=== PATIENT | male | born 1945 | race Caucasian/White ===

== ENCOUNTER 2016-03-18 17:42 | Inpatient (IN) ==
[2016-03-18] MEDS ORDERED: Naloxone 0.4 MG/ML INJ IVP PRN (18:38)
[2016-03-18] MEDS ORDERED: 0.9 % Sodium Chloride 250 ML IV PRN (18:52)
--- NOTE | 2016-03-18 18:57 | Nephrology Consult Note ---
Date of Encounter: 03/18/16 Time of Encounter: 18:54 Assessment and Plan (1) ESRD (end stage renal disease) on dialysis Current Visit: Yes Status: Acute I returned to the hospital on Saturday night after being paged about this very sick patient He missed dialysis and has had difficulty with his dialysis access. S/p fistulagram on Saturday, but his last HD was on Saturday. The LUE AVG has no thrill and is not going to work, so he will need a temporary HD catheter placed and urgent HD for clearance and fluid removal (re: hyperkalemia and pulmonary edema), both of which are urgent indications for dialysis. I called the senior mechanical project engineer for urgent HD. I chose the left femoral vein as it had the most clear window with the lowest immediate risk tonight in placing the triple lumen CVC. With fluid removal, this should help his acute respiratory failure His LUE AVG has no thrill. The Fistulogram report documented a viable thrill, so he likely has developed a thrombus. Perhaps at the time of his cardiac arrest , however, I cannot rule out perhaps earlier and perhaps he may have developed a P.E., which was discussed with the hospitalist. His platelets and Hgb were WNL and 11.9 on the outside records, respectively, so it should be fine from a renal perspective for a heparin gtt if needed. The LUE AVG may need a thrombectomy first and after this then a fistulagram. I spent about 65 min involved in critical care time, including documentation review, family meeting, exam, and documentation (not including procedure time). Thank you for consulting the [facility] group. Will follow with you. (2) Hyperkalemia Current Visit: Yes Status: Acute Urgent HD needed. (3) Clotted dialysis access Current Visit: Yes Status: Acute See above Qualifiers: Encounter type: initial encounter Qualified Code(s): T82.49XA - Other complication of vascular dialysis catheter, initial encounter (4) Pulmonary edema Current Visit: Yes Status: Acute Urgent HD needed Qualifiers: Chronicity: acute Qualified Code(s): J81.0 - Acute pulmonary edema (5) Acute respiratory failure Current Visit: Yes Status: Acute From pulm edema, from his missed dialysis/ESRD status. Will need urgent HD. Vent as per primary Qualifiers: Respiratory failure complication: hypoxia Qualified Code(s): J96.01 - Acute respiratory failure with hypoxia History of Present Illness - Reason for Consult Consult date: 03/18/16 end stage renal disease, hyperkalemia Requesting physician: Betsy Bustos - Chief Complaint Missed HD, Severe hyperkalemia, s/p PE arrest, Fluid overload - History of Present Illness Donovan Bourne is a 70 y/o WM with a pmh of HTN, urostomy, ESRD on HD M/W/F and et al who presented as a transfer from [facility] ER. He missed HD on Saturday, his relatives said. Had Fistulagram on 03/16/16 but was told to rest the arm another day before dialysis, and his HD unit is not open on Saturdays. He was feeling poorly on Saturday and awoke late on Saturday with generalized muscle weakness, his family said. He tried to eat but could not finish after two bites; but then started to shake vigorously and was taken to a local fire department, who then quickly took him to the ER. He presented at an outside ER, [place] and developed PEA arrest, requiring ACLS, bicarb, intubation. BPs were hemodynamically stabilized and he was transferred here for urgent HD. I reviewed the copies of his outside medical records: serum K was 7.5 with peaked T-waves diffusely on the EKG. His primary insurance producer is Dr. Tan, my colleague. Pt is intubated so all info is from records and per report from the hospitalist and the pt's family. Past Med Surg Social Fam HX - Past Medical History Medical history: diabetes, myocardial infarction, renal disease Psychiatric history: no psych history - Past Surgical History Surgical History: cholecystectomy, vascular surgery - Social History Smoking Status: Never smoker Smokeless Tobacco Status: No Alcohol use: none Drug use: none Medications and Allergies Aspirin [Lo-Dose Aspirin EC] 81 mg PO DAILY 03/18/16 [History] Calcium Acetate [Phos-LO] 667 mg PO TIDAC 03/18/16 [History] Ergocalciferol (VITAMIN D2) [Vitamin D2] 50,000 unit PO QWEEK 03/18/16 [History] Insulin ASPART [Novolog Flexpen] 0 unit SQ TID 03/18/16 [History] Insulin DETEMIR [Levemir] TID 03/18/16 [History] Levothyroxine [Synthroid] 25 mcg PO 0630 03/18/16 [History] Omeprazole [PriLOSEC] 20 mg PO BIDAC 03/18/16 [History] Simvastatin [Zocor] 40 mg PO HS 03/18/16 [History] Allergies No Known Allergies Allergy (Verified 11/19/14 11:45) Review of Systems ROS unobtainable: due to endotracheal tube Exam - Vital Signs Vital signs: Initial Vital Signs Resp BP Pulse Ox 12 162/86 95 03/18/16 18:28 03/18/16 18:28 03/18/16 18:28 Vital Signs - Last 8 Hours Resp BP Pulse Ox 03/18/16 18:28 12 162/86 95 Intake and Output 03/18/16 03/18/16 03/18/16 07:59 15:59 23:59 Other: Weight 95.5 kg Patient Weight 03/18/16 23:59 Weight 95.5 kg - General Appearance General appearance: obese, moderate distress, sedated on ventilator, intubated EENT: ATNC, mucous membranes moist Neck: supple Respiratory: clear Cardiology: edema (trace pedal edema b/l ), regular rate, regular rhythm, normal S1, normal S2 - Dialysis Access Dialysis Vascular Access: Arteriovenous Graft (LUE without thrill or bruit.) Gastrointestinal: normoactive bowel sounds, no guarding Additional Comments: Urostomy bag intact Integumentary: no rash, warm and dry Neurologic: no focal deficit, no asterixis, obtunded Musculoskeletal: no deformities, no erythema, no cyanosis Results - Lab Results 03/18/16 20:30 I reviewed the above auto-generated data, including labs, meds, vitals, outside ER medical records including EKG and CXR. Consult Discharge Plan - Plan Referrals: NO,PCP [Primary Care Provider] -
[2016-03-18] MEDS ORDERED: D5% in Water 1,000 ML IV PRN (19:18)
[2016-03-18] MEDS ORDERED: *HR* Dextrose 50 % in Water (Syg) 50 ML SYRINGE IVP PRN (19:18)
[2016-03-18] MEDS ORDERED: Dextrose Gel 15 GM PO PRN ×2 (19:18)
--- NOTE | 2016-03-18 19:29 | Internal Med History&Physical ---
Date of Encounter: 03/18/16 Time of Encounter: 18:45 Assessment and Plan (1) PEA (Pulseless electrical activity) Current visit: Yes Status: Acute s/p PEA with ROSC after one round of ACLS s/p intubation patient received 2amps bicarb prior to transfer from [facility] Critical time spent with the patient 30 minutes (2) Acute respiratory failure requiring reintubation Current visit: Yes Status: Acute Secondary to pulmonary edema s/p intubation will be receiving urgent Hemodialysis tonight continue vent support repeat ABG Midazolam/Fentanyl for sedation/pain (3) Hyperkalemia Current visit: Yes Status: Acute secondary to missed hemodialysis will be receiving urgent HD tonight will closely monitor (4) Pulmonary edema Current visit: Yes Status: Acute Volume overload secondary to missed hemodialysis session Will receive urgent hemodialysis tonight for fluid removal continue vent support patient noted to have minimal urine output at baseline, will hold off on diuretic therapy and continue with HD session as per nephrology Qualifiers: Chronicity: acute Qualified Code(s): J81.0 - Acute pulmonary edema (5) Clotted dialysis access Current visit: Yes Status: Acute patient s/p fistulagram and thrombectomy on 03/18/[address] an urgent HD access consult IR in am for Permacath Qualifiers: Encounter type: initial encounter Qualified Code(s): T82.49XA - Other complication of vascular dialysis catheter, initial encounter (6) ESRD (end stage renal disease) on dialysis Current visit: Yes Status: Acute Nephrology eval appreciated Patient to undergo urgent dialysis tonight urgent HD cath to be placed by seismograph chief Will continue HD sessions as per nephrology Patient received 2amps of bicarb prior to transfer from [facility] (7) Diabetes mellitus Current visit: Yes Status: Acute Patient on sliding scale insulin algorithm at home Will continue correctional Insulin SS Monitor fingerstick and blood glucose Qualifiers: Diabetes mellitus type: type 2 Diabetes mellitus complication status: with unspecified complications 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 insulin use: with residential use Qualified Code(s): E11.8 - Type 2 diabetes mellitus with unspecified complications; Z79.4 - terminal press operator (current) use of insulin (8) Hypertension Current visit: Yes Status: Acute BP within acceptable range continue home medications Qualifiers: Hypertension type: essential hypertension Qualified Code(s): I10 - Essential (primary) hypertension (9) DVT prophylaxis Current visit: Yes Status: Acute Heparin SQ Internal Medicine - H&P: HPI Chief complaint: transfer from [facility] s/p cardiac arrest, acute respiratory failure Admitted From: Home Plans for Post Hospital Care: Transfer Longterm Facility History of present illness: Mr. Bourne is a 70 year old male with past medical history of end-stage renal disease on hemodialysis, diabetes, hypertension, hyperlipidemia, CAD, GERD who is a transfer from [facility] for management of acute respiratory failure. Patient is s/p PEA with ROSC after one round of ACLS protocol. He was intubated for acute respiratory failure secondary to flash pulmonary edema. Patient has a history of malfunctioning AV fistula due to which he did not complete his full session of Saturday's Hemodialysis. He went to the [facility] for shortness of breath and was found to be severely hyperkalemia with K of 7.5. Patient has history of bladder cancer and has a urostomy. As per family he has minimal urine output. He received two doses of Lasix prior to his transfer. During my evaluation, patient is intubated and sedated. He has some urine in the urostomy bag. As per records, he underwent a fistulagram and thrombectomy of his LUE AV fistula on 03/18/16. Prior to transfer, patient was noted to have K of 6.4 and ABG : 7.041/85.6/23.2 STAT nephrology consultation was placed with Dr. Young ( robotics application engineer for the service, patient's primary seismograph chief is Dr. Tan) Past Med Surg Social Fam HX - Past Medical History Medical history: cancer (bladder ca s/p urostomy), coronary artery disease, diabetes, GERD, myocardial infarction, renal disease (on hemodialysis ) Psychiatric history: no psych history - Past Surgical History Surgical History: cholecystectomy, vascular surgery - Social History Smoking Status: Never smoker Smokeless Tobacco Status: No Alcohol use: none Drug use: none Internal Medicine - H&P: Meds Aspirin [Lo-Dose Aspirin EC] 81 mg PO DAILY 03/18/16 [History] Calcium Acetate [Phos-LO] 667 mg PO TIDAC 03/18/16 [History] Ergocalciferol (VITAMIN D2) [Vitamin D2] 50,000 unit PO QWEEK 03/18/16 [History] Insulin ASPART [Novolog Flexpen] 0 unit SQ TID 03/18/16 [History] Insulin DETEMIR [Levemir] TID 03/18/16 [History] Levothyroxine [Synthroid] 25 mcg PO 0630 03/18/16 [History] Omeprazole [PriLOSEC] 20 mg PO BIDAC 03/18/16 [History] Simvastatin [Zocor] 40 mg PO HS 03/18/16 [History] Allergies No Known Allergies Allergy (Verified 11/19/14 11:45) ROS unobtainable: due to endotracheal tube (sedated) All Systems PM: A 10-system review of systems was performed and is negative for pertinent findings except as documented above in the HPI. - Constitutional Vitals: Resp BP Pulse Ox 12 162/86 95 03/18/16 18:28 03/18/16 18:28 03/18/16 18:28 General appearance: Present: A&O X 0 (sedated and ventilated), obese - Head Head exam: Present: atraumatic, normocephalic - Eye Eye exam: Present: PERRL, conjuntiva pink, sclera anicteric (pinpoint pupil, ) - Respiratory Respiratory exam: Present: decreased breath sounds (decreased breath sounds bilaterally). Absent: wheezes - Cardiovascular Cardiovascular exam: Present: RRR, +S1, +S2 - GI/Abdominal GI/Abdominal exam: Present: normal bowel sounds, soft. Absent: tenderness (LLQ urostomy bag in place) - Extremities Exam Extremities exam: Present: pedal edema (bilateral lower extremity 1+pitting edema), warm (LUE av fistula), radial pulses palpable and symetrical. Absent: calf tenderness, tenderness Internal Med - H&P Results - Impressions ITS Impressions Chest X-Ray 03/18/16 18:44 IMPRESSION: 1. Endotracheal tube 4.8 cm above the cindy. 2. Diffuse bilateral pulmonary opacities. D/ / Kurt Ma MD / Kurt Ma MD Interpreting Provider: Kurt Ma MD
[2016-03-18] MEDS: FentaNYL (PF) 1,000 MCG in 0.9 % Sodium Chloride 80 ML IVC SCH (19:32)
--- NOTE | 2016-03-18 20:35 | Procedure Note ---
Date of procedure: 03/18/16 Pre-op diagnosis: Refractory hyperkalemia Post-op diagnosis: same Procedure: Temporary Right Femoral Hemodialysis Catheter Placement Date: 03/18/2016 Time: 19:30 Indication: Urgent hemodialysis Resident: Dr. Donovan Crane Attending: Dr. Nicho Aguilera A time-out was completed verifying correct patient, procedure, site, positioning , and special equipment if applicable. The patient was placed in a dependent position appropriate for central line placement based on the vein to be cannulated. The patients right groin was prepped and draped in sterile fashion. Patient was receiving versed and fentanyl drip for sendation for mechanical ventilation. A triple lumen temoprary hemodialysis catheter was introduced into the the right femoral vein using the Seldinger technique and under ultrasound guidance. The catheter was threaded smoothly over the guide wire and appropriate blood return was obtained. Each lumen of the catheter was evacuated of air and flushed with sterile saline. The catheter was then sutured in place to the skin and a sterile dressing applied. Perfusion to the extremity distal to the point of catheter insertion was checked and found to be adequate. Dr. Aguilera was present for the entire procedure. Estimated Blood Loss: 20 cc The patient tolerated the procedure well and there were no complications. Anesthesia: IV sedation Surgeon: Nicho Aguilera Sale Professional Digital Marketing: Donovan Crane Estimated blood loss (cc): 20 Pathology: none sent Condition: critical Disposition: no change
[2016-03-18 20:37] LABS: Basophils % 0.3 %; Eosinophils % 0.1 %; Hematocrit 35.7 % (37.5-50.1); Hemoglobin 11.6 g/dL (12.9-16.9); Immature Granulocytes % 0.6 % (0-4); Immature Platelets 3.8 % (1.1-6.1); Lymphocytes # 0.4 K/mcL (0.6-4.6); Lymphocytes % 2.6 %; Mean Corpuscular HGB Conc 32.5 g/dL (31.6-35.5); Mean Corpuscular Hemoglobin 30.9 pg (28.0-33.3); Mean Corpuscular Volume 94.9 fL (83.0-100.0); Mean Platelet Volume 10.2 fL (9.4-12.4); Monocytes # 0.9 K/mcL (0.0-1.3); Monocytes % 6.4 %; Neutrophils # 12.3 K/mcL (1.6-8.9); Platelet Count 333 K/mcL (140-400); Red Blood Count 3.76 M/mcL (4.19-5.50)
[2016-03-18 20:41] LABS: Prothrombin Time 10.9 Seconds (9.4-12.1)
[2016-03-18 20:44] LABS: Activated Partial Thrombo Time 32.1 Seconds (26.0-36.0)
[2016-03-18 20:50] LABS: Albumin 2.8 g/dL (3.5-5.0); Albumin/Globulin Ratio 0.8 (1.1-2.2); Bilirubin,Total 0.7 mg/dL (0.2-1.2); Calcium 9.4 mg/dL (8.6-10.8); Globulin 3.7 g/dL (2.4-3.5); Magnesium 1.6 mg/dL (1.6-2.6); Phosphorous 9.5 mg/dL (2.3-4.7); Total Protein 6.5 g/dL (6.0-8.3)
[2016-03-18 20:56] LABS: Potassium 7.5 mEq/L (3.5-4.5)
[2016-03-18 21:04] LABS: ABG Base Excess -2.8 mEq/L (-2.0 to 3.0); ABG Oxygen Saturation 78 % (95-98); ABG PCO2 57 mmHg (35-45); ABG PH 7.25 pH Units (7.32-7.45); ABG TCO2 26.7 mEq/L (20-26)
[2016-03-18 21:05] LABS: Blood Gas FiO2 50 %
[2016-03-18 21:06] LABS: ABG PO2 50 mmHg (85-104)
--- NOTE | 2016-03-18 21:08 | Event Note ---
Date of Encounter: 03/18/16 Time of Encounter: 21:06 Dialysis Note: I ordered urgent HD and examined the pt while on dialysis. His vitals were adequate and Qb and Qd were acceptable. Discussed with the beam warper. The latest serum K+ returned at 7.5, but will continue with a 2K bath for patient safety. Will plan for HD tomorrow as well.
[2016-03-18 21:21] LABS: Hepatitis B Surface Antigen Nonreactive (Nonreactive)
[2016-03-18] MEDS ORDERED: Vancomycin 1,500 MG in D5% in Water 250 ML IVPB ONE (22:00)
[2016-03-18] MEDS ORDERED: Vancomycin 1,500 MG in D5% in Water 250 ML IVPB SCH (22:00)
[2016-03-18] MEDS ORDERED: Levofloxacin 750 MG/150 ML 750 MG/150 ML BAG IVPB SCH (22:00)
[2016-03-18] MEDS: Norepinephrine 4 MG in D5% in Water 250 ML IVC SCH (22:11)
[2016-03-18 23:18] LABS: ABG Base Excess -1.3 mEq/L (-2.0 to 3.0); ABG HCO3 23.7 mEQ/L (21-27); ABG Oxygen Saturation 100 % (95-98); ABG PCO2 40 mmHg (35-45); ABG PH 7.38 pH Units (7.32-7.45); ABG PO2 189 mmHg (85-104); ABG TCO2 24.9 mEq/L (20-26)
[2016-03-18 23:23] LABS: Blood Gas FiO2 100 %
[2016-03-18] MEDS ORDERED: Aspirin 81 MG TAB.CHEW PO SCH (23:45)
[2016-03-18 23:51] LABS: Potassium 6.2 mEq/L (3.5-4.5)
[2016-03-19] MEDS: Insulin LISPRO 300 UNITS/3 ML VIAL SQ SCH ×2 (00:56→06:16)
[2016-03-19 04:14] LABS: Basophils % 0.1 %; Hematocrit 32.7 % (37.5-50.1); Hemoglobin 10.8 g/dL (12.9-16.9); Immature Granulocytes % 0.7 % (0-4); Lymphocytes # 0.5 K/mcL (0.6-4.6); Lymphocytes % 2.6 %; Mean Corpuscular Hemoglobin 31.3 pg (28.0-33.3); Mean Corpuscular Volume 94.8 fL (83.0-100.0); Mean Platelet Volume 10.4 fL (9.4-12.4); Monocytes # 1.1 K/mcL (0.0-1.3); Monocytes % 5.9 %; Neutrophils # 16.1 K/mcL (1.6-8.9); Platelet Count 228 K/mcL (140-400); Red Blood Count 3.45 M/mcL (4.19-5.50); Red Cell Distribution Width 14.1 % (11.5-14.5); Segmented Neutrophils % 90.7 %
[2016-03-19 04:40] LABS: Calcium 8.7 mg/dL (8.6-10.8); Magnesium 1.5 mg/dL (1.6-2.6); Phosphorous 6.3 mg/dL (2.3-4.7)
[2016-03-19 04:42] LABS: Potassium 7.1 mEq/L (3.5-4.5)
[2016-03-19] MEDS ORDERED: Magnesium Sulfate 2 GM in D5% in Water 100 ML IVPB ONE ×2 (04:50→13:01)
[2016-03-19] MEDS ORDERED: Insulin LISPRO 300 UNITS/3 ML VIAL SQ ONE (04:50)
[2016-03-19] MEDS ORDERED: Calcium Gluconate 2,000 MG in D5% in Water 100 ML IVPB ONE (04:50)
[2016-03-19] MEDS ORDERED: *HR* Dextrose 50 % in Water (Syg) 50 ML SYRINGE IVP ONE (04:50)
[2016-03-19] MEDS ORDERED: Calcium Gluconate 2,000 MG in D5% in Water 100 ML IVPB PRN (05:22)
[2016-03-19] MEDS ORDERED: Calcium Gluconate 1,000 MG in D5% in Water 100 ML IVPB PRN (05:22)
[2016-03-19] MEDS ORDERED: 0.9 % Sodium Chloride 250 ML ONE (05:25)
[2016-03-19] MEDS ORDERED: 0.9 % Sodium Chloride 1,000 ML ONE (05:25)
[2016-03-19 05:51] LABS: INR 1.1; Prothrombin Time 12.2 Seconds (9.4-12.1)
[2016-03-19] MEDS: 0.9 % Sodium Chloride 1,000 ML PRIME SCH (05:56)
[2016-03-19] MEDS: PrismaSATE BGK 2/0 5,000 ML CRRT SCH ×4 (05:58→10:33)
[2016-03-19] MEDS ORDERED: Piperacillin/Tazobactam 3.375 GM in D5% in Water (Mini-Bag+) 100 ML IVPB SCH (06:00)
[2016-03-19] MEDS: Calcium Chloride 4,000 MG in 0.9 % Sodium Chloride 1,000 ML CRRT SCH ×2 (06:02→21:44)
[2016-03-19] MEDS ORDERED: *HR* Heparin 5,000 UNIT/ML VIAL SQ SCH (07:00)
--- NOTE | 2016-03-19 07:03 | Pulmonology Consult Note ---
<Amador Patel W - Last Filed: 03/19/16 10:20> Medications and Allergies Aspirin [Lo-Dose Aspirin EC] 81 mg PO DAILY 03/18/16 [History] Calcium Acetate [Phos-LO] 667 mg PO TIDAC 03/18/16 [History] Ergocalciferol (VITAMIN D2) [Vitamin D2] 50,000 unit PO QWEEK 03/18/16 [History] Insulin ASPART [Novolog Flexpen] 12 - 14 unit SQ TID 03/18/16 [History] Insulin DETEMIR [Levemir] 20 unit SQ HS 03/18/16 [History] Levothyroxine [Synthroid] 25 mcg PO DAILY 03/18/16 [History] Omeprazole [PriLOSEC] 20 mg PO BID 03/18/16 [History] Simvastatin [Zocor] 40 mg PO HS 03/18/16 [History] Allergies codeine Allergy (Unknown, Verified 03/19/16 07:08) See Comments UNSURE OF REACTION- LISTED ON PATIENT'S ECW All Systems: A 10-system review of systems was performed and is negative for pertinent findings except as documented above in the HPI. Physical Examination Vital Signs: Vital Signs, Last 4 Hours Temp Pulse Resp BP Pulse Ox 03/19/16 08:00 97.6 F 65 14 105/60 100 03/19/16 07:25 22 109/59 97 03/19/16 07:00 97.6 F 66 14 109/59 10 L 03/19/16 06:30 81 16 96/59 98 03/19/16 06:00 83 16 109/67 98 03/19/16 05:45 16 113/60 98 03/19/16 05:30 82 16 125/59 98 Ventilator Settings Ventilator Settings: Ventilator Settings, Last 8 Hours Ventilator Mode A/C Ventilator Mode A/C Ventilator Mode A/C Ventilator Mode A/C Ventilator Mode A/C Ventilator Mode A/C Ventilator Mode A/C Ventilator Mode A/C Ventilator Mode A/C Ventilator Mode A/C Ventilator Mode A/C Ventilator Mode A/C Ventilator Mode A/C Ventilator Mode A/C Ventilator Mode A/C Ventilator Mode A/C Ventilator Mode A/C Ventilator Mode A/C Ventilator Tidal Volume 500 Setting Ventilator Tidal Volume 500 Setting Ventilator Tidal Volume 500 Setting Ventilator Tidal Volume 500 Setting Ventilator Tidal Volume 550 Setting Ventilator Tidal Volume 550 Setting Ventilator Tidal Volume 550 Setting Ventilator Tidal Volume 550 Setting Ventilator Tidal Volume 550 Setting Ventilator Tidal Volume 550 Setting Ventilator Tidal Volume 550 Setting Ventilator Tidal Volume 550 Setting Ventilator Tidal Volume 550 Setting Ventilator Tidal Volume 550 Setting Ventilator Tidal Volume 550 Setting Ventilator Tidal Volume 550 Setting Ventilator Tidal Volume 550 Setting Ventilator Tidal Volume 550 Setting Ventilator Respiratory Rate 14 Setting Ventilator Respiratory Rate 14 Setting Ventilator Respiratory Rate 14 Setting Ventilator Respiratory Rate 14 Setting Ventilator Respiratory Rate 14 Setting Ventilator Respiratory Rate 14 Setting Ventilator Respiratory Rate 14 Setting Ventilator Respiratory Rate 14 Setting Ventilator Respiratory Rate 14 Setting Ventilator Respiratory Rate 14 Setting Ventilator Respiratory Rate 14 Setting Ventilator Respiratory Rate 14 Setting Ventilator Respiratory Rate 14 Setting Ventilator Respiratory Rate 14 Setting Ventilator Respiratory Rate 14 Setting Ventilator Respiratory Rate 14 Setting Ventilator Respiratory Rate 14 Setting Ventilator Respiratory Rate 14 Setting Actual Respiratory Rate 14 Actual Respiratory Rate 22 Actual Respiratory Rate 14 Actual Respiratory Rate 16 Actual Respiratory Rate 16 Actual Respiratory Rate 16 Actual Respiratory Rate 16 Actual Respiratory Rate 14 Actual Respiratory Rate 14 Actual Respiratory Rate 14 Actual Respiratory Rate 16 Actual Respiratory Rate 16 Actual Respiratory Rate 18 Actual Respiratory Rate 14 Actual Respiratory Rate 20 Actual Respiratory Rate 19 Actual Respiratory Rate 16 Positive End Expiratory 5 Pressure Positive End Expiratory 5 Pressure Positive End Expiratory 5 Pressure Positive End Expiratory 5 Pressure Positive End Expiratory 5 Pressure Positive End Expiratory 5 Pressure Positive End Expiratory 5 Pressure Positive End Expiratory 5 Pressure Positive End Expiratory 5 Pressure Positive End Expiratory 5 Pressure Positive End Expiratory 5 Pressure Positive End Expiratory 5 Pressure Positive End Expiratory 5 Pressure Positive End Expiratory 5 Pressure Positive End Expiratory 5 Pressure Positive End Expiratory 5 Pressure Positive End Expiratory 5 Pressure Positive End Expiratory 5 Pressure Peak Inspiratory Airway 25 Pressure Peak Inspiratory Airway 24 Pressure Peak Inspiratory Airway 25 Pressure Peak Inspiratory Airway 30 Pressure Peak Inspiratory Airway 30 Pressure Peak Inspiratory Airway 31 Pressure Peak Inspiratory Airway 30 Pressure Peak Inspiratory Airway 30 Pressure Peak Inspiratory Airway 30 Pressure Peak Inspiratory Airway 31 Pressure Peak Inspiratory Airway 32 Pressure Peak Inspiratory Airway 24 Pressure Peak Inspiratory Airway 22 Pressure Peak Inspiratory Airway 23 Pressure Peak Inspiratory Airway 25 Pressure Peak Inspiratory Airway 26 Pressure Peak Inspiratory Airway 27 Pressure Results - Laboratory Findings CBC and BMP: 03/19/16 04:00 03/19/16 09:54 ABG ABG pH 7.43 pH Units (7.32-7.45) 03/19/16 07:26 ABG pCO2 40 mmHg (35-45) 03/19/16 07:26 ABG pO2 98 mmHg (85-104) 03/19/16 07:26 ABG O2 Saturation 98 % (95-98) 03/19/16 07:26 PT/INR, D-dimer PT 12.2 Seconds (9.4-12.1) H 03/19/16 05:39 Abnormal lab findings: Abnormal lab results WBC 17.7 K/mcL (4.3-11.1) H 03/19/16 04:00 RBC 3.45 M/mcL (4.19-5.50) L 03/19/16 04:00 Hgb 10.8 g/dL (12.9-16.9) L 03/19/16 04:00 Hct 32.7 % (37.5-50.1) L 03/19/16 04:00 Neutrophils # 16.1 K/mcL (1.6-8.9) H 03/19/16 04:00 Lymphocytes # 0.5 K/mcL (0.6-4.6) L 03/19/16 04:00 PT 12.2 Seconds (9.4-12.1) H 03/19/16 05:39 ABG Total CO2 27.7 mEq/L (20-26) H 03/19/16 07:26 Sodium 130 mEq/L (136-145) L 03/19/16 04:00 Potassium 7.1 mEq/L (3.5-4.5) H* 03/19/16 04:00 Chloride 95 mEq/L (98-109) L 03/19/16 04:00 BUN 64 mg/dL (8-26) H 03/19/16 04:00 Creatinine 7.36 mg/dL (0.72-1.25) H 03/19/16 04:00 Est GFR ( Amer) 9 (> 60) L 03/19/16 04:00 Est GFR (Non-Af Amer) 7 (> 60) L 03/19/16 04:00 Glucose 198 mg/dL (70-99) H 03/19/16 04:00 Ionized Calcium 1.08 mmol/L (1.15-1.35) L 03/19/16 08:05 Phosphorus 6.3 mg/dL (2.3-4.7) H 03/19/16 04:00 Magnesium 1.5 mg/dL (1.6-2.6) L 03/19/16 04:00 AST 73 Units/L (5-34) H 03/18/16 20:30 ALT 56 Units/L (0-55) H 03/18/16 20:30 Alkaline Phosphatase 368 Units/L (38-126) H 03/18/16 20:30 Albumin 2.8 g/dL (3.5-5.0) L 03/18/16 20:30 Globulin 3.7 g/dL (2.4-3.5) H 03/18/16 20:30 Albumin/Globulin Ratio 0.8 (1.1-2.2) L 03/18/16 20:30 - Clinical Findings Intake & Output: Intake & Output 03/18/16 03/19/16 03/19/16 23:59 07:59 15:59 Intake Total 1055 / 1055 224 / 224 95.3 / 95.3 Output Total 2450 / 2450 100 / 100 Balance -1395 / -1395 124 / 124 95.3 / 95.3 Weight 95.5 kg 93 kg Consult Discharge Plan - Plan Referrals: NO,PCP [Primary Care Provider] - - Attending Attestation I examined this patient and my medical decision-making was reviewed with the NIGHT COORDINATOR/PA/Advanced Practice Nurse/Resident Physician. I agree with the documented findings, disposition and treatment plan as described except to the extent set forth below. I spent 40 min of Critical Care time with this patient. It involved decision making of high complexity to assess, manipulate, and support vital organ system failure and/or to prevent further life threatening deterioration of the patient' s condition. The time involved in the performance of separately reportable procedures was not counted toward critical care time. Patient seen and examined at bedside Labs, radiology, chart personally reviewed. All lines examined without evidence of infection. Neuropsych: Currently sedated [place] 2-3 cont fentanyl and versed; PERRL/ Moves all exts to command Pulm: Intubated on vent adjusted (decreased TV) for goal TV 6-8cc/kg acceptable O2 decrease fio2 to 40%. CXR with b/l opacities likely cardiogenic pulmonary edema but concern for aspiration. Cards: Post PEA arrests likely s/t to electrolyte derrangement/CHF now with Shock that is multifactorial (sedation, post arrest, possible sepsis) wean levo for goal MAP of 60. ECG today with Prolonged QTC stop levaquin. Check Trop and lactate trend if abnormal. 2dECHO today. FEN-GI: NPO for now. cont bowel regimen. cont PPi for prophylaxis Renal: ESRD with inadequate HD now with hyperkalemia. cont CRRT through left fem cath. Nephro following. replace Mg2+ ID: concern for sepsis/aspiration with rising WBC count. On broad ABx (Vanc/ Zosyn) cultures pending. Stop levaquin (much less likely atypical infection and QTC is prolonged) Heme/Onc: Cont DVT prophylaxis. H/H stable with baseline anemia of CKD. History of Bladder CA with urostomy Endo: glucose monitored start insulin gtt Integ/MSK: skin care per [facility] protocol to prevent ulcers CODE: FULL updated at bedside. <Ludmila Tejada - Last Filed: 03/19/16 11:26> Date of Encounter: 03/19/16 Time of Encounter: 07:01 Assessment and Plan (1) PEA (Pulseless electrical activity) Current Visit: Yes Status: Acute s/p PEA with ROSC after one round of ACLS at [facility] Intubated due to acute respiratory failure likely secondary to pulmonary edema- placement confirmed with CXR Received 2amps bicarb prior to transfer to [facility] Chest CT demonstrated small peripheral emboli cannot be excluded, extensive bilateral airspace diseas which is combination of atelectasis and pneumonia or aspiration, small bilateral pleural effusions Sedated on Fentanyl/Versed On ventilator with FiO2 50% at 98% oxygen saturation, PEEP:5, TV: 500 Cardiac exam with RRR, Levaphed for pressure support Protonix 40mg daily for GI prophylaxis Pt of Dr. Tan, Right femoral dialysis catheter in place, K: 7.5 initially, then decrease to 6.2, 7.1 today, [place] since last night Currently Vancomycin, Zosyn for antibiotic coverage Heparin SQ for DVT prophylaxis SSI-medium dose for diabetes, will consider switching to insulin drip to better regulate glucose (2) Acute respiratory failure Current Visit: Yes Status: Acute Was unable to complete dialysis on Saturday due to malfunctioning of dialysis access Acute respiratory failure likely secondary to pulmonary edema Intubated and sedated at this time Continue ventilator support Repeat ABG this morning and make ventilator adjustments accordingly Qualifiers: Respiratory failure complication: hypoxia Qualified Code(s): J96.01 - Acute respiratory failure with hypoxia (3) Pulmonary edema Current Visit: Yes Status: Acute Volume overload secondary to not completing dialysis session on Saturday Has been on [place] since last night Continue ventilator support Repeat ABG this morning Qualifiers: Chronicity: acute Qualified Code(s): J81.0 - Acute pulmonary edema (4) ESRD (end stage renal disease) on dialysis Current Visit: Yes Status: Chronic Nephrology consulted On [place] since last night K:7.1 this morning BUN: 64 Creatinine:7.36 (6.11 yesterday) Received 2amps of bicarb prior to transfer from [facility] (5) Clotted dialysis access Current Visit: Yes Status: Acute pt s/p fistulogram and thrombectomy on 03/18/16 On malgorzata per nephrology Qualifiers: Encounter type: initial encounter Qualified Code(s): T82.49XA - Other complication of vascular dialysis catheter, initial encounter (6) Hyperkalemia Current Visit: Yes Status: Acute Secondary to not finishing hemodialysis on Saturday K:7.1 today Continue to monitor labs (7) Diabetes mellitus Current Visit: Yes Status: Acute Currently on SSI-medium dose, will consider switching to insulin drip for better glucose control Will continue to monitor and make adjustments as necessary Qualifiers: Diabetes mellitus type: type 2 Diabetes mellitus complication status: with unspecified complications Diabetes mellitus prison insulin use: with prison use Qualified Code(s): E11.8 - Type 2 diabetes mellitus with unspecified complications; Z79.4 - group home (current) use of insulin (8) Hypertension Current Visit: Yes Status: Chronic Continue home medications Qualifiers: Hypertension type: essential hypertension Qualified Code(s): I10 - Essential (primary) hypertension (9) DVT prophylaxis Current Visit: Yes Status: Acute Heparin SQ History of Present Illness Consult date: 03/19/16 Requesting physician: Betsy Bustos Reason for consult: other (Ventilator Management) Chief complaint: s/p cardiopulmonary arrest History of present illness: Mr. Bourne is a 70 year old male with history of ESRD on HD (pt of Dr. Tan), Diabetes, HTN, HLD, CAD, and GERD, who presents from [facility] s/p cardiopulmonary arrest. He reportedly was found to be in PEA and had one round of ACLS with ROSC while at outside facility. He was intubated for acute respiratory failure secondary to flash pulmonary edema and transferred to [facility]. Pt has history of malfunctioning fistula and for that reason was unable to complete his whole session of dialysis on Saturday. He also has a history of bladder cancer for which he as a urostomy. This morning, pt intubated and sedated with Fentanyl and Versed. He is able to respond to verbal commands, will squeeze hands, move toes, and is moving all extremities. Past Med Surg Social Fam HX - Past Medical History Medical history: diabetes, myocardial infarction, renal disease Psychiatric history: no psych history - Past Surgical History Surgical History: cholecystectomy, vascular surgery - Social History Smoking Status: Never smoker Smokeless Tobacco Status: No Alcohol use: none Drug use: none ROS unobtainable: due to endotracheal tube All Systems: A 10-system review of systems was performed and is negative for pertinent findings except as documented above in the HPI. Physical Examination Vital Signs: Vital Signs, Last 4 Hours Temp Pulse Resp BP Pulse Ox 03/19/16 06:30 81 16 96/59 98 03/19/16 06:00 83 16 109/67 98 03/19/16 05:45 16 113/60 98 03/19/16 05:30 82 16 125/59 98 03/19/16 05:00 84 16 152/73 99 03/19/16 04:45 84 15 96/50 100 03/19/16 04:30 84 14 102/53 99 03/19/16 04:15 99.0 F 85 16 80/49 98 03/19/16 04:00 85 16 87/48 99 03/19/16 03:10 18 89/49 99 General appearance: agitated, other (Intubated and sedated with Fentanyl and Versed) Eyes: nonicteric ENT: oropharynx moist Neck: supple Effort: other (Ventilator support) Auscultation: bilateral: rhonchi Cardiovascular: regular rate and rhythm Gastrointestinal: normoactive bowel sounds, soft, non-tender, non-distended, other (Urostomy bag in RLQ with minimal urine output) Integumentary: normal Extremities: no edema, no clubbing, pink and warm Musculoskeletal: no deformities pupils equal and round, other (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, move toes and all extremities without difficulty) Ventilator Settings Ventilator Settings: Ventilator Settings, Last 8 Hours Ventilator Mode A/C Ventilator Mode A/C Ventilator Mode A/C Ventilator Mode A/C Ventilator Mode A/C Ventilator Mode A/C Ventilator Mode A/C Ventilator Mode A/C Ventilator Mode A/C Ventilator Mode A/C Ventilator Mode A/C Ventilator Mode A/C Ventilator Mode A/C Ventilator Mode A/C Ventilator Mode A/C Ventilator Mode A/C Ventilator Mode A/C Ventilator Mode A/C Ventilator Mode A/C Ventilator Mode A/C Ventilator Mode A/C Ventilator Tidal Volume 550 Setting Ventilator Tidal Volume 550 Setting Ventilator Tidal Volume 550 Setting Ventilator Tidal Volume 550 Setting Ventilator Tidal Volume 550 Setting Ventilator Tidal Volume 550 Setting Ventilator Tidal Volume 550 Setting Ventilator Tidal Volume 550 Setting Ventilator Tidal Volume 550 Setting Ventilator Tidal Volume 550 Setting Ventilator Tidal Volume 550 Setting Ventilator Tidal Volume 550 Setting Ventilator Tidal Volume 550 Setting Ventilator Tidal Volume 550 Setting Ventilator Tidal Volume 550 Setting Ventilator Tidal Volume 550 Setting Ventilator Tidal Volume 550 Setting Ventilator Tidal Volume 550 Setting Ventilator Tidal Volume 550 Setting Ventilator Tidal Volume 550 Setting Ventilator Tidal Volume 550 Setting Ventilator Respiratory Rate 14 Setting Ventilator Respiratory Rate 14 Setting Ventilator Respiratory Rate 14 Setting Ventilator Respiratory Rate 14 Setting Ventilator Respiratory Rate 14 Setting Ventilator Respiratory Rate 14 Setting Ventilator Respiratory Rate 14 Setting Ventilator Respiratory Rate 14 Setting Ventilator Respiratory Rate 14 Setting Ventilator Respiratory Rate 14 Setting Ventilator Respiratory Rate 14 Setting Ventilator Respiratory Rate 14 Setting Ventilator Respiratory Rate 14 Setting Ventilator Respiratory Rate 14 Setting Ventilator Respiratory Rate 14 Setting Ventilator Respiratory Rate 14 Setting Ventilator Respiratory Rate 14 Setting Ventilator Respiratory Rate 14 Setting Ventilator Respiratory Rate 14 Setting Ventilator Respiratory Rate 14 Setting Ventilator Respiratory Rate 14 Setting Actual Respiratory Rate 16 Actual Respiratory Rate 16 Actual Respiratory Rate 16 Actual Respiratory Rate 16 Actual Respiratory Rate 14 Actual Respiratory Rate 14 Actual Respiratory Rate 14 Actual Respiratory Rate 16 Actual Respiratory Rate 16 Actual Respiratory Rate 18 Actual Respiratory Rate 14 Actual Respiratory Rate 20 Actual Respiratory Rate 19 Actual Respiratory Rate 16 Actual Respiratory Rate 22 Actual Respiratory Rate 20 Actual Respiratory Rate 20 Actual Respiratory Rate 20 Actual Respiratory Rate 20 Actual Respiratory Rate 20 Positive End Expiratory 5 Pressure Positive End Expiratory 5 Pressure Positive End Expiratory 5 Pressure Positive End Expiratory 5 Pressure Positive End Expiratory 5 Pressure Positive End Expiratory 5 Pressure Positive End Expiratory 5 Pressure Positive End Expiratory 5 Pressure Positive End Expiratory 5 Pressure Positive End Expiratory 5 Pressure Positive End Expiratory 5 Pressure Positive End Expiratory 5 Pressure Positive End Expiratory 5 Pressure Positive End Expiratory 5 Pressure Positive End Expiratory 5 Pressure Positive End Expiratory 5 Pressure Positive End Expiratory 5 Pressure Positive End Expiratory 5 Pressure Positive End Expiratory 5 Pressure Positive End Expiratory 5 Pressure Positive End Expiratory 5 Pressure Peak Inspiratory Airway 30 Pressure Peak Inspiratory Airway 30 Pressure Peak Inspiratory Airway 31 Pressure Peak Inspiratory Airway 30 Pressure Peak Inspiratory Airway 30 Pressure Peak Inspiratory Airway 30 Pressure Peak Inspiratory Airway 31 Pressure Peak Inspiratory Airway 32 Pressure Peak Inspiratory Airway 24 Pressure Peak Inspiratory Airway 22 Pressure Peak Inspiratory Airway 23 Pressure Peak Inspiratory Airway 25 Pressure Peak Inspiratory Airway 26 Pressure Peak Inspiratory Airway 27 Pressure Peak Inspiratory Airway 30 Pressure Peak Inspiratory Airway 30 Pressure Peak Inspiratory Airway 30 Pressure Peak Inspiratory Airway 28 Pressure Peak Inspiratory Airway 28 Pressure Peak Inspiratory Airway 27 Pressure Results - Laboratory Findings CBC and BMP: 03/19/16 04:00 03/19/16 09:54 ABG ABG pH 7.38 pH Units (7.32-7.45) D 03/18/16 23:08 ABG pCO2 40 mmHg (35-45) 03/18/16 23:08 ABG pO2 189 mmHg (85-104) H 03/18/16 23:08 ABG O2 Saturation 100 % (95-98) H 03/18/16 23:08 PT/INR, D-dimer PT 12.2 Seconds (9.4-12.1) H 03/19/16 05:39 Abnormal lab findings: Abnormal lab results WBC 17.7 K/mcL (4.3-11.1) H 03/19/16 04:00 RBC 3.45 M/mcL (4.19-5.50) L 03/19/16 04:00 Hgb 10.8 g/dL (12.9-16.9) L 03/19/16 04:00 Hct 32.7 % (37.5-50.1) L 03/19/16 04:00 Neutrophils # 16.1 K/mcL (1.6-8.9) H 03/19/16 04:00 Lymphocytes # 0.5 K/mcL (0.6-4.6) L 03/19/16 04:00 PT 12.2 Seconds (9.4-12.1) H 03/19/16 05:39 ABG pO2 189 mmHg (85-104) H 03/18/16 23:08 ABG O2 Saturation 100 % (95-98) H 03/18/16 23:08 Sodium 130 mEq/L (136-145) L 03/19/16 04:00 Potassium 7.1 mEq/L (3.5-4.5) H* 03/19/16 04:00 Chloride 95 mEq/L (98-109) L 03/19/16 04:00 BUN 64 mg/dL (8-26) H 03/19/16 04:00 Creatinine 7.36 mg/dL (0.72-1.25) H 03/19/16 04:00 Est GFR ( Amer) 9 (> 60) L 03/19/16 04:00 Est GFR (Non-Af Amer) 7 (> 60) L 03/19/16 04:00 Glucose 198 mg/dL (70-99) H 03/19/16 04:00 Ionized Calcium 1.10 mmol/L (1.15-1.35) L 03/19/16 05:39 Phosphorus 6.3 mg/dL (2.3-4.7) H 03/19/16 04:00 Magnesium 1.5 mg/dL (1.6-2.6) L 03/19/16 04:00 AST 73 Units/L (5-34) H 03/18/16 20:30 ALT 56 Units/L (0-55) H 03/18/16 20:30 Alkaline Phosphatase 368 Units/L (38-126) H 03/18/16 20:30 Albumin 2.8 g/dL (3.5-5.0) L 03/18/16 20:30 Globulin 3.7 g/dL (2.4-3.5) H 03/18/16 20:30 Albumin/Globulin Ratio 0.8 (1.1-2.2) L 03/18/16 20:30 - Clinical Findings Intake & Output: Intake & Output 03/18/16 03/18/16 03/19/16 15:59 23:59 07:59 Intake Total 1055 / 1055 106 / 106 Output Total 2450 / 2450 100 / 100 Balance -1395 / -1395 6 / 6 Weight 95.5 kg 93 kg
[2016-03-19] MEDS ORDERED: Dexmedetomidine HCl 400 MCG/100 ML MLS IVC SCH (07:30)
[2016-03-19 08:12] LABS: ABG HCO3 26.5 mEQ/L (21-27); ABG Oxygen Saturation 98 % (95-98); ABG PCO2 40 mmHg (35-45); ABG PH 7.43 pH Units (7.32-7.45); ABG PO2 98 mmHg (85-104); ABG TCO2 27.7 mEq/L (20-26); Blood Gas FiO2 50 %; Blood Gas PEEP 5 cm H2O; Blood Gas Respiration Rate 14; Blood Gas VT 500 cc
[2016-03-19] MEDS: Pantoprazole 40 MG VIAL IVP SCH (08:58)
[2016-03-19] MEDS: Lacri-Lube 3.5 GM TUBE BOTH EYES SCH ×2 (08:58→19:48)
[2016-03-19] MEDS: Chlorhexidine Rinse 15 ML MOUTHWASH MM SCH ×2 (08:59→19:47)
--- NOTE | 2016-03-19 09:13 | Procedure Note ---
Date of procedure: 03/19/16 Pre-op diagnosis: Cardiogenic Shock Post-op diagnosis: same Procedure: Right CVC Placement A time out was preformed identifying the correct procedure, the correct location with the nursing staff. The right chest was prepped with 2% chlorhexidine and draped with a full length sterile sheet in the usual fashion. 1% lidocaine was administered subcutaneously for local anesthesia. The right internal jugular vein was accessed under ultrasound guidance with an 18 gauge thin wall needle. A triple lumen was inserted via the seldinger technique. Blood was withdrawn from all lumens and flushed with normal saline. The catheter was sutured in place and a sterile dressing was applied over the site prior to removal of drapes. The patient tolerated the procedure well and there were no complications. Chest x ray was reviewed and CVC in satisfactory position without evidence of PTX EBL Minimal Complication: None Surgeon: Amador Patel Pathology: none sent Condition: critical Disposition: no change
[2016-03-19 09:56] LABS: Hepatitis B Surface Antibody 5.69 mIU/mL
[2016-03-19 10:16] LABS: Albumin 2.4 g/dL (3.5-5.0); Albumin/Globulin Ratio 0.8 (1.1-2.2); Bilirubin,Direct 0.3 mg/dL (0.0-0.5); Bilirubin,Indirect 0.4 mg/dL (0.0-1.2); Bilirubin,Total 0.7 mg/dL (0.2-1.2); Calcium 8.2 mg/dL (8.6-10.8); Globulin 3.2 g/dL (2.4-3.5); Magnesium 1.8 mg/dL (1.6-2.6); Phosphorous 5.2 mg/dL (2.3-4.7); Total Protein 5.6 g/dL (6.0-8.3)
[2016-03-19 10:18] LABS: Potassium 5.1 mEq/L (3.5-4.5)
[2016-03-19 10:20] LABS: Ionized Calcium 1.05 mmol/L (1.15-1.35)
[2016-03-19] MEDS ORDERED: *HR* Dextrose 50 % in Water (Syg) 50 ML SYRINGE IVP PRN (10:28)
--- NOTE | 2016-03-19 10:32 | Nephrology Consult Note ---
Date of Encounter: 03/19/16 Time of Encounter: 10:30 Assessment and Plan (1) ESRD (end stage renal disease) on dialysis Current Visit: Yes Status: Chronic Patient unfortunately missed dialysis on Saturday due to a malfunctioning AV fistula. He began to feel more sick over the weekend and ultimately presented to [facility] on Saturday. He went into PEA arrests with return of spontaneous circulation after 1 round of ACLS, and was found to be hyperkalemic at 7.5. He was transferred to [place] for further care and started on urgent hemodialysis last night. Due to hypotension, patient's dialysis modality was switched to CVVHDF early this morning with improvement in his serum potassium to 5.1. We will continue Ivett with gentle fluid removal. We will switch dialysate and replacement fluid to 4K bath with 2.5 calcium. Continue renal dosing of all medications. (2) Hyperkalemia Current Visit: Yes Status: Acute (3) Cardiac arrest Current Visit: Yes Status: Resolved (4) Acute respiratory failure with hypoxia Current Visit: Yes Status: Acute Currently intubated and sedated. Chest x-ray with bilateral opacities likely cardiogenic pulmonary edema but concern also for aspiration pneumonia. Management per ICU team. (5) Dialysis AV fistula malfunction Current Visit: Yes Status: Acute Currently, patient without a palpable or audible thrill to his left sided AV fistula. Dialysis currently running through a temporary femoral line. Patient will most likely need a thrombectomy followed by a fistulogram to salvage the AV fistula. We will consult interventional radiology in the upcoming days. Qualifiers: Encounter type: initial encounter Qualified Code(s): T82.590A - Other mechanical complication of surgically created arteriovenous fistula, initial encounter (6) Insulin dependent diabetes mellitus Current Visit: Yes Status: Chronic Insulin drip initiated by ICU team. Continue to monitor potassium closely. (7) Hypertension Current Visit: Yes Status: Chronic Qualifiers: Hypertension type: essential hypertension Qualified Code(s): I10 - Essential (primary) hypertension History of Present Illness - Reason for Consult end stage renal disease, hyperkalemia - Chief Complaint ESRD with hyperkalemia - History of Present Illness Mr. Bourne is a 70-year-old gentleman with a past medical history of end-stage renal disease requiring hemodialysis Saturday, insulin-dependent diabetes mellitus, hypertension, hyperlipidemia, coronary artery disease, and GERD who was transferred from [facility] status post cardiac arrest. Patient missed dialysis on Saturday secondary to a nonfunctioning AV fistula, and began to feel worse each day over the weekend. On Saturday he presented to [facility] due to fatigue and weakness and ultimately went into PEA arrest. He did have return of spontaneous circulation after 1 round of ACLS, was intubated for acute respiratory failure and transferred to [place] for further care. Patient was found to be hyperkalemic with a potassium of 7.5, and nephrology was consulted for urgent dialysis. Initially patient was placed on standard hemodialysis, but due to hypotension he was switched over to CVVHDF. Patient's potassium has greatly improved to 5.1 and we will continue gentle fluid removal with Ivett. Past Med Surg Social Fam HX - Past Medical History Medical history: coronary artery disease, diabetes, GERD, hyperlipidemia, hypertension, myocardial infarction, renal disease Psychiatric history: no psych history - Past Surgical History Surgical History: cholecystectomy, vascular surgery - Social History Smoking Status: Never smoker Smokeless Tobacco Status: No Alcohol use: none Drug use: none Medications and Allergies Aspirin [Lo-Dose Aspirin EC] 81 mg PO DAILY 03/18/16 [History] Calcium Acetate [Phos-LO] 667 mg PO TIDAC 03/18/16 [History] Ergocalciferol (VITAMIN D2) [Vitamin D2] 50,000 unit PO QWEEK 03/18/16 [History] Insulin ASPART [Novolog Flexpen] 12 - 14 unit SQ TID 03/18/16 [History] Insulin DETEMIR [Levemir] 20 unit SQ HS 03/18/16 [History] Levothyroxine [Synthroid] 25 mcg PO DAILY 03/18/16 [History] Omeprazole [PriLOSEC] 20 mg PO BID 03/18/16 [History] Simvastatin [Zocor] 40 mg PO HS 03/18/16 [History] Allergies codeine Allergy (Unknown, Verified 03/19/16 07:08) See Comments UNSURE OF REACTION- LISTED ON PATIENT'S ECW Review of Systems ROS unobtainable: due to mental status Exam - Vital Signs Vital signs: Initial Vital Signs Resp BP Pulse Ox 12 162/86 95 03/18/16 18:28 03/18/16 18:28 03/18/16 18:28 Vital Signs - Last 8 Hours Temp Pulse Resp BP Pulse Ox 03/19/16 09:59 60 14 94/54 100 03/19/16 09:00 60 14 99/56 100 03/19/16 08:00 97.6 F 65 14 105/60 100 03/19/16 07:25 22 109/59 97 03/19/16 07:00 97.6 F 66 14 109/59 10 L 03/19/16 06:30 81 16 96/59 98 03/19/16 06:00 83 16 109/67 98 03/19/16 05:45 16 113/60 98 03/19/16 05:30 82 16 125/59 98 03/19/16 05:00 84 16 152/73 99 03/19/16 04:45 84 15 96/50 100 03/19/16 04:30 84 14 102/53 99 03/19/16 04:15 99.0 F 85 16 80/49 98 03/19/16 04:00 85 16 87/48 99 03/19/16 03:10 18 89/49 99 03/19/16 03:00 90 14 89/49 99 Intake and Output 03/18/16 03/19/16 03/19/16 23:59 07:59 15:59 Intake Total 1055 / 1055 224 / 224 95.3 / 95.3 Output Total 2450 / 2450 100 / 100 Balance -1395 / -1395 124 / 124 95.3 / 95.3 Intake: IV Fluids 455 / 455 224 / 224 95.3 / 95.3 FentaNYL (PF) 1,000 MCG 46 / 46 In 0.9 % Sodium Chloride 80 ML @ 0.5 MCG/KG/HR 4. 77 mls/hr IVC CONT PRINCE Rx #:[id number] Versed 50 MG In 0.9 % 18 82 / 82 42.3 / 42.3 Sodium Chloride 90 ML @ 0 .02 MG/KG/HR 3.82 mls/hr IVC CONT PRINCE Rx#: [id number] Levophed 4 MG In Dextrose 38 / 38 7 / 7 5% 250 ML @ 2 MCG/MIN 7. 62 mls/hr IVC .CONT PRINCE Rx#:[id number] Levaquin 750mg/150 mL 750 150 / 150 mg In 150 ml @ 100 mls/ hr IVPB Q48H PRINCE Rx#: [id number] Magnesium Sulfate 2 GM In 104 / 104 Dextrose 5% 100 ML @ 100 mls/hr IVPB ONCE ONE Rx# :[id number] Vancocin 1,500 MG In 250 / 250 Dextrose 5% 250 ML @ 166. 67 mls/hr IVPB ONCE ONE Rx#:[id number] Intake, Rinseback and 600 / 600 Flushes Output: Total Dialysis Output 2200 / 2200 Urostomy 250 / 250 Gastric Drainage 100 / 100 Other: Weight 95.5 kg 93 kg Blood Glucose* 150 203 Hemodialysis Net Fluid 1800 Removed (mL) Patient Weight 03/19/16 23:59 Weight 93 kg - General Appearance Exam: General: Intubated and sedated HEENT: Normocephalic atraumatic, pupils are equal round and reactive to light and accommodation, tympanic membrane is intact, nares is patent, mucous membranes moist, endotracheal tube in place, no JVD, trachea is midline Cardiovascular: Regular rate and rhythm without murmur Respiratory: Trace rhonchi noted throughout Abdomen: Soft, nontender, nondistended, positive bowel sounds in all 4 quadrants , urostomy bag in place Extremities: Warm, dry, no edema Neuro: Unable to assess due to the patient's mental status Results - Lab Results 03/19/16 04:00 03/19/16 09:54 Most recent lab results ABG pH 7.43 pH Units (7.32-7.45) 03/19/16 07:26 ABG pCO2 40 mmHg (35-45) 03/19/16 07:26 ABG pO2 98 mmHg (85-104) 03/19/16 07:26 ABG HCO3 26.5 mEQ/L (21-27) 03/19/16 07:26 ABG O2 Saturation 98 % (95-98) 03/19/16 07:26 Calcium 8.2 mg/dL (8.6-10.8) L 03/19/16 09:54 Phosphorus 5.2 mg/dL (2.3-4.7) H 03/19/16 09:54 Magnesium 1.8 mg/dL (1.6-2.6) 03/19/16 09:54 Consult Discharge Plan - Plan Referrals: NO,PCP [Primary Care Provider] -
[2016-03-19] MEDS: Insulin Human Regular 100 UNIT in 0.9 % Sodium Chloride 100 ML IVC SCH (11:12)
[2016-03-19] MEDS: FentaNYL (PF) 1,000 MCG in 0.9 % Sodium Chloride 80 ML IVC SCH ×3 (12:08→23:19)
[2016-03-19] MEDS ORDERED: Vancomycin 500 MG in D5% in Water (Mini-Bag+) 100 ML IVPB ONE (13:00)
[2016-03-19] MEDS: Piperacillin/Tazobactam 3.375 GM in D5% in Water (Mini-Bag+) 100 ML IVPB SCH ×2 (13:35→21:51)
[2016-03-19] MEDS: PrismaSATE BGK 4/2.5 5,000 ML CRRT SCH ×6 (13:48→23:29)
[2016-03-19 13:58] LABS: ABG Base Excess 3.6 mEq/L (-2.0 to 3.0); ABG HCO3 27.7 mEQ/L (21-27); ABG Oxygen Saturation 99 % (95-98); ABG PCO2 39 mmHg (35-45); ABG PH 7.46 pH Units (7.32-7.45); ABG PO2 138 mmHg (85-104); ABG TCO2 28.9 mEq/L (20-26); Blood Gas FiO2 50 %; Blood Gas PEEP 5 cm H2O; Blood Gas Respiration Rate 16; Blood Gas VT 500 cc
[2016-03-19] MEDS: *HR* Heparin 5,000 UNIT/ML VIAL IV PRN (15:30)
[2016-03-19] MEDS ORDERED: *HR* Heparin 5,000 UNIT/ML VIAL IVP PRN ×2 (15:55)
[2016-03-19] MEDS ORDERED: *HR* Heparin 5,000 UNIT/ML VIAL IVP ONE (15:55)
[2016-03-19] MEDS ORDERED: Heparin 25,000 UNIT/500 ML D5W 25,000 UNIT/500 ML MLS IVC SCH (16:00)
[2016-03-19] MEDS: Aspirin 81 MG TAB.CHEW PO SCH (16:39)
[2016-03-19 16:57] LABS: Hematocrit 28.9 % (37.5-50.1); Hemoglobin 9.8 g/dL (12.9-16.9); Mean Corpuscular HGB Conc 33.9 g/dL (31.6-35.5); Mean Corpuscular Hemoglobin 31.8 pg (28.0-33.3); Mean Corpuscular Volume 93.8 fL (83.0-100.0); Mean Platelet Volume 10.1 fL (9.4-12.4); Platelet Count 186 K/mcL (140-400); Red Blood Count 3.08 M/mcL (4.19-5.50); Red Cell Distribution Width 14.2 % (11.5-14.5)
[2016-03-19 17:09] LABS: Albumin 2.3 g/dL (3.5-5.0); Calcium 8.7 mg/dL (8.6-10.8); Phosphorous 5.4 mg/dL (2.3-4.7); Potassium 4.4 mEq/L (3.5-4.5)
[2016-03-19 17:14] LABS: INR 1.1; Prothrombin Time 12.3 Seconds (9.4-12.1)
[2016-03-19 23:34] LABS: Albumin 2.1 g/dL (3.5-5.0); Calcium 9.4 mg/dL (8.6-10.8); Potassium 4.6 mEq/L (3.5-4.5)
[2016-03-20] MEDS: 0.9 % Sodium Chloride 1,000 ML PRIME SCH ×18 (02:49→12:51)
[2016-03-20] MEDS: PrismaSATE BGK 4/2.5 5,000 ML CRRT SCH ×6 (02:51→10:54)
[2016-03-20] MEDS: *HR* Heparin 5,000 UNIT/ML VIAL IV PRN (02:53)
[2016-03-20 02:54] LABS: Basophils # 0.1 K/mcL (0.0-0.2); Basophils % 0.7 %; Eosinophils # 0.2 K/mcL (0.0-0.6); Eosinophils % 1.8 %; Hematocrit 27.6 % (37.5-50.1); Hemoglobin 9.2 g/dL (12.9-16.9); Immature Granulocytes % 0.4 % (0-4); Immature Platelets 4.7 % (1.1-6.1); Lymphocytes # 1.3 K/mcL (0.6-4.6); Lymphocytes % 15.6 %; Mean Corpuscular HGB Conc 33.3 g/dL (31.6-35.5); Mean Corpuscular Hemoglobin 31.5 pg (28.0-33.3); Mean Corpuscular Volume 94.5 fL (83.0-100.0); Mean Platelet Volume 10.5 fL (9.4-12.4); Monocytes # 0.8 K/mcL (0.0-1.3); Monocytes % 9.4 %; Platelet Count 211 K/mcL (140-400); Red Blood Count 2.92 M/mcL (4.19-5.50); Red Cell Distribution Width 14.3 % (11.5-14.5); Segmented Neutrophils % 72.1 %
[2016-03-20 03:06] LABS: Calcium 9.7 mg/dL (8.6-10.8); Potassium 4.5 mEq/L (3.5-4.5)
[2016-03-20 05:07] LABS: ABG Base Excess 8.8 mEq/L (-2.0 to 3.0); ABG Oxygen Saturation 97 % (95-98); ABG PCO2 50 mmHg (35-45); ABG PH 7.44 pH Units (7.32-7.45); ABG PO2 85 mmHg (85-104); ABG TCO2 35.5 mEq/L (20-26); Blood Gas FiO2 50 %
[2016-03-20] MEDS: Piperacillin/Tazobactam 3.375 GM in D5% in Water (Mini-Bag+) 100 ML IVPB SCH ×3 (05:20→21:05)
--- NOTE | 2016-03-20 06:38 | Pulmonology Progress Note ---
<Amador Patel W - Last Filed: 03/20/16 08:04> Objective PUL Vital signs: Last Vital Signs Temp 97.3 F L 03/20/16 04:00 Pulse 80 03/20/16 07:00 Resp 14 03/20/16 07:00 BP 117/53 03/20/16 07:00 Pulse Ox 99 03/20/16 07:00 Ventilator Settings Ventilator Settings: Ventilator Settings, Last 8 Hours Ventilator Mode A/C Ventilator Mode A/C Ventilator Mode A/C Ventilator Mode A/C Ventilator Mode A/C Ventilator Mode A/C Ventilator Mode A/C Ventilator Mode A/C Ventilator Mode A/C Ventilator Mode A/C Ventilator Mode A/C Ventilator Mode A/C Ventilator Mode A/C Ventilator Tidal Volume 500 Setting Ventilator Tidal Volume 500 Setting Ventilator Tidal Volume 500 Setting Ventilator Tidal Volume 500 Setting Ventilator Tidal Volume 500 Setting Ventilator Tidal Volume 500 Setting Ventilator Tidal Volume 500 Setting Ventilator Tidal Volume 500 Setting Ventilator Tidal Volume 500 Setting Ventilator Tidal Volume 500 Setting Ventilator Tidal Volume 500 Setting Ventilator Tidal Volume 500 Setting Ventilator Tidal Volume 500 Setting Ventilator Respiratory Rate 14 Setting Ventilator Respiratory Rate 14 Setting Ventilator Respiratory Rate 14 Setting Ventilator Respiratory Rate 14 Setting Ventilator Respiratory Rate 14 Setting Ventilator Respiratory Rate 14 Setting Ventilator Respiratory Rate 14 Setting Ventilator Respiratory Rate 14 Setting Ventilator Respiratory Rate 14 Setting Ventilator Respiratory Rate 14 Setting Ventilator Respiratory Rate 14 Setting Ventilator Respiratory Rate 14 Setting Ventilator Respiratory Rate 14 Setting Actual Respiratory Rate 14 Actual Respiratory Rate 14 Actual Respiratory Rate 14 Actual Respiratory Rate 14 Actual Respiratory Rate 14 Actual Respiratory Rate 14 Actual Respiratory Rate 15 Actual Respiratory Rate 15 Actual Respiratory Rate 14 Actual Respiratory Rate 14 Actual Respiratory Rate 14 Actual Respiratory Rate 14 Positive End Expiratory 5 Pressure Positive End Expiratory 5 Pressure Positive End Expiratory 5 Pressure Positive End Expiratory 5 Pressure Positive End Expiratory 5 Pressure Positive End Expiratory 5 Pressure Positive End Expiratory 5 Pressure Positive End Expiratory 5 Pressure Positive End Expiratory 5 Pressure Positive End Expiratory 5 Pressure Positive End Expiratory 5 Pressure Positive End Expiratory 5 Pressure Positive End Expiratory 5 Pressure Peak Inspiratory Airway 22 Pressure Peak Inspiratory Airway 22 Pressure Peak Inspiratory Airway 22 Pressure Peak Inspiratory Airway 22 Pressure Peak Inspiratory Airway 23 Pressure Peak Inspiratory Airway 23 Pressure Peak Inspiratory Airway 24 Pressure Peak Inspiratory Airway 25 Pressure Peak Inspiratory Airway 22 Pressure Peak Inspiratory Airway 22 Pressure Peak Inspiratory Airway 22 Pressure Peak Inspiratory Airway 21 Pressure Results - Laboratory Findings CBC and BMP: 03/20/16 02:45 03/20/16 02:45 ABG ABG pH 7.44 pH Units (7.32-7.45) 03/20/16 04:59 ABG pCO2 50 mmHg (35-45) H 03/20/16 04:59 ABG pO2 85 mmHg (85-104) 03/20/16 04:59 ABG O2 Saturation 97 % (95-98) 03/20/16 04:59 PT/INR, D-dimer PT 12.3 Seconds (9.4-12.1) H 03/19/16 16:48 Abnormal lab findings: Abnormal lab results RBC 2.92 M/mcL (4.19-5.50) L 03/20/16 02:45 Hgb 9.2 g/dL (12.9-16.9) L 03/20/16 02:45 Hct 27.6 % (37.5-50.1) L 03/20/16 02:45 PT 12.3 Seconds (9.4-12.1) H 03/19/16 16:48 ABG pCO2 50 mmHg (35-45) H 03/20/16 04:59 ABG HCO3 34.0 mEQ/L (21-27) H 03/20/16 04:59 ABG Total CO2 35.5 mEq/L (20-26) H 03/20/16 04:59 ABG Base Excess 8.8 mEq/L (-2.0 to 3.0) H 03/20/16 04:59 Creatinine 3.56 mg/dL (0.72-1.25) H 03/20/16 02:45 Est GFR ( Amer) 21 (> 60) L 03/20/16 02:45 Est GFR (Non-Af Amer) 17 (> 60) L 03/20/16 02:45 Glucose 151 mg/dL (70-99) H 03/20/16 02:45 POC Glucose 157 (58-89) H 03/19/16 23:58 AST 60 Units/L (5-34) H 03/19/16 09:54 ALT 73 Units/L (0-55) H 03/19/16 09:54 Alkaline Phosphatase 294 Units/L (38-126) H 03/19/16 09:54 Troponin I 0.21 ng/mL (0-0.03) H* 03/19/16 14:13 Serum Total Protein 5.6 g/dL (6.0-8.3) L 03/19/16 09:54 Albumin 2.1 g/dL (3.5-5.0) L 03/19/16 23:00 Albumin/Globulin Ratio 0.8 (1.1-2.2) L 03/19/16 09:54 - Microbiology Findings Microbiology Findings: Microbiology, Last 48 Hours 03/18/16 21:51 Blood Culture - Preliminary Central Venous Catheter No growth. 03/18/16 21:39 Blood Culture - Preliminary Central Venous Catheter No growth. - Clinical Findings Intake & Output: Intake & Output 03/19/16 03/19/16 03/20/16 15:59 23:59 07:59 Intake Total 52114.3 / 54052.3 1628.0 / 1628.0 1050.4 / 1050.4 Output Total 1132 / 1132 1006 / 1006 1195 / 1195 Balance 9304.3 / 9304.3 622.0 / 622.0 -144.6 / -144.6 Weight 93 kg Consult Discharge Plan - Plan Referrals: NO,PCP [Primary Care Provider] - - Attending Attestation I examined this patient and my medical decision-making was reviewed with the NURSE HEAD/PA/Advanced Practice Nurse/Resident Physician. I agree with the documented findings, disposition and treatment plan as described except to the extent set forth below. I spent 35 min of Critical Care time with this patient. It involved decision making of high complexity to assess, manipulate, and support vital organ system failure and/or to prevent further life threatening deterioration of the patient' s condition. The time involved in the performance of separately reportable procedures was not counted toward critical care time. Patient seen and examined at bedside Labs, radiology, chart personally reviewed. All lines examined without evidence of infection. Neuropsych: Currently sedated decrease fentanyl stop versed add precedex; PERRL/ Moves all exts to command Pulm: Intubated on vent acceptable O2 decrease fio2 to 40%. CXR with b/l opacities that are improving s/t cardiogenic pulmonary edema. COncern for aspiration. SBT later today. Cont fluid removal Cards: Post PEA arrests likely s/t to electrolyte derrangement/CHF complicated by shock Now resolved results of 2dECHO today pending prelim showed reduction in EF% likely Cards consult. Slight trop elevation in setting of ACS hypotension suggestive of Type 2 ND pending ECHO results. FEN-GI: NPO for now. cont bowel regimen. cont PPi for prophylaxis Renal: ESRD on CRRT with hyperkalemia that has resolved with CRRT (through left fem cath). Nephro following. replace Mg2+ ID: concern for sepsis/aspiration cont Vanc/Zosyn today deescalate tomorrrow based upon cultures Heme/Onc: Cont DVT prophylaxis. H/H stable with baseline anemia of CKD. History of Bladder CA with urostomy Endo: glucose monitored transition from insulin gtt to SSi coverage Integ/MSK: skin care per PRINTING PLATE CLERK protocol to prevent ulcers CODE: FULL family updated at bedside. <Ludmila Tejada - Last Filed: 03/20/16 10:28> Date of Encounter: 03/20/16 Time of Encounter: 06:35 Assessment and Plan (1) PEA (Pulseless electrical activity) Current Visit: Yes Status: Acute s/p PEA with ROSC after one round of ACLS at [facility] PEA likely due to electrolyte derrangement Intubated due to acute respiratory failure, likely secondary to pulmonary edema Received 2amps bicarb prior to transfer to [facility] CXR yesterday confirmed placement of central line and demonstrated pneumonia with suspected overlying pleural effusions, diffuse airspace and interstitial opacities possibly pulmonary edema. Echocardiogram demonstrated EF 40-45% Sedated on Fentanyl and Versed On ventilator with FiO2 50% at 99% oxygen saturation, PEEP: 5, TV: 500 Cardiac exam with RRR, Levaphed for pressure support as needed, this has been off since midnight with the exception of one hour Pt of Dr. Tan, Right femoral dialysis catheter in place, K:4.5 today, On ivett Currently Vancomycin and Zosyn for antibiotic coverage ACS Heparin drip and Aspirin daily Insulin drip for glucose control (2) Acute respiratory failure Current Visit: Yes Status: Acute Was unable to complete dialysis on Saturday due to malfunctioning of dialysis access Acute respiratory failure likely secondary to pulmonary edema Intubated and sedated Continue ventilator support Continue to monitor ABG and make ventilator adjustments accordingly Qualifiers: Respiratory failure complication: hypoxia Qualified Code(s): J96.01 - Acute respiratory failure with hypoxia (3) Pulmonary edema Current Visit: Yes Status: Acute Volume overload secondary to not completing dialysis session Saturday On ivett at this time Continue ventilator support Qualifiers: Chronicity: acute Qualified Code(s): J81.0 - Acute pulmonary edema (4) ESRD (end stage renal disease) on dialysis Current Visit: Yes Status: Chronic Nephrology consulted On Ivett K:4.5 this morning BUN:26 Creatinine:3.56 (3.91 previous lab draw) Received 2amps of bicarb prior to transfer from [facility] (5) Clotted dialysis access Current Visit: Yes Status: Acute pt s/p fistulogram and thrombectomy on 03/18/16 On ivett per nephrology Qualifiers: Encounter type: initial encounter Qualified Code(s): T82.49XA - Other complication of vascular dialysis catheter, initial encounter (6) Hyperkalemia Current Visit: Yes Status: Acute Likely secondary to not finishing hemodialysis Saturday K:4.5 today Continue to monitor labs (7) Diabetes mellitus Current Visit: Yes Status: Acute Insulin drip for glucose control Continue to monitor Qualifiers: Diabetes mellitus type: type 2 Diabetes mellitus complication status: with unspecified complications Diabetes mellitus fpc insulin use: with dedicated intermodal truck driver use Qualified Code(s): E11.8 - Type 2 diabetes mellitus with unspecified complications; Z79.4 - exterminator termite (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 Bourne is resting comfortably today. He is intubated and sedated, however able to follow commands. Pt will open eyes, tilting head band sawyer fingers and move all extremities. He has a right femoral dialysis catheter and IJ CVC in place. Due to history of bladder cancer, pt has urostomy back in [facility]. Objective PUL Vital signs: Last Vital Signs Temp 97.3 F L 03/20/16 04:00 Pulse 76 03/20/16 06:00 Resp 14 03/20/16 06:02 BP 111/52 03/20/16 06:02 Pulse Ox 99 03/20/16 06:02 General appearance: no acute distress, other (Intubated, sedated, able to follow commands) Eyes: nonicteric ENT: oropharynx moist Neck: supple Effort: other (Ventilator support) Auscultation: bilateral: rhonchi Cardiovascular: regular rate and rhythm Gastrointestinal: normoactive bowel sounds, soft, non-tender, non-distended Extremities: no edema, no clubbing, pink and warm Musculoskeletal: no deformities non-focal exam Ventilator Settings Ventilator Settings: Ventilator Settings, Last 8 Hours Ventilator Mode A/C Ventilator Mode A/C Ventilator Mode A/C Ventilator Mode A/C Ventilator Mode A/C Ventilator Mode A/C Ventilator Mode A/C Ventilator Mode A/C Ventilator Mode A/C Ventilator Mode A/C Ventilator Mode A/C Ventilator Mode A/C Ventilator Mode A/C Ventilator Tidal Volume 500 Setting Ventilator Tidal Volume 500 Setting Ventilator Tidal Volume 500 Setting Ventilator Tidal Volume 500 Setting Ventilator Tidal Volume 500 Setting Ventilator Tidal Volume 500 Setting Ventilator Tidal Volume 500 Setting Ventilator Tidal Volume 500 Setting Ventilator Tidal Volume 500 Setting Ventilator Tidal Volume 500 Setting Ventilator Tidal Volume 500 Setting Ventilator Tidal Volume 500 Setting Ventilator Tidal Volume 500 Setting Ventilator Respiratory Rate 14 Setting Ventilator Respiratory Rate 14 Setting Ventilator Respiratory Rate 14 Setting Ventilator Respiratory Rate 14 Setting Ventilator Respiratory Rate 14 Setting Ventilator Respiratory Rate 14 Setting Ventilator Respiratory Rate 14 Setting Ventilator Respiratory Rate 14 Setting Ventilator Respiratory Rate 14 Setting Ventilator Respiratory Rate 14 Setting Ventilator Respiratory Rate 14 Setting Ventilator Respiratory Rate 14 Setting Ventilator Respiratory Rate 14 Setting Actual Respiratory Rate 14 Actual Respiratory Rate 14 Actual Respiratory Rate 14 Actual Respiratory Rate 14 Actual Respiratory Rate 14 Actual Respiratory Rate 15 Actual Respiratory Rate 15 Actual Respiratory Rate 14 Actual Respiratory Rate 14 Actual Respiratory Rate 14 Actual Respiratory Rate 14 Actual Respiratory Rate 14 Positive End Expiratory 5 Pressure Positive End Expiratory 5 Pressure Positive End Expiratory 5 Pressure Positive End Expiratory 5 Pressure Positive End Expiratory 5 Pressure Positive End Expiratory 5 Pressure Positive End Expiratory 5 Pressure Positive End Expiratory 5 Pressure Positive End Expiratory 5 Pressure Positive End Expiratory 5 Pressure Positive End Expiratory 5 Pressure Positive End Expiratory 5 Pressure Positive End Expiratory 5 Pressure Peak Inspiratory Airway 22 Pressure Peak Inspiratory Airway 22 Pressure Peak Inspiratory Airway 22 Pressure Peak Inspiratory Airway 23 Pressure Peak Inspiratory Airway 23 Pressure Peak Inspiratory Airway 24 Pressure Peak Inspiratory Airway 25 Pressure Peak Inspiratory Airway 22 Pressure Peak Inspiratory Airway 22 Pressure Peak Inspiratory Airway 22 Pressure Peak Inspiratory Airway 21 Pressure Peak Inspiratory Airway 22 Pressure Results - Laboratory Findings CBC and BMP: 03/20/16 02:45 03/20/16 02:45 ABG ABG pH 7.44 pH Units (7.32-7.45) 03/20/16 04:59 ABG pCO2 50 mmHg (35-45) H 03/20/16 04:59 ABG pO2 85 mmHg (85-104) 03/20/16 04:59 ABG O2 Saturation 97 % (95-98) 03/20/16 04:59 PT/INR, D-dimer PT 12.3 Seconds (9.4-12.1) H 03/19/16 16:48 Abnormal lab findings: Abnormal lab results RBC 2.92 M/mcL (4.19-5.50) L 03/20/16 02:45 Hgb 9.2 g/dL (12.9-16.9) L 03/20/16 02:45 Hct 27.6 % (37.5-50.1) L 03/20/16 02:45 PT 12.3 Seconds (9.4-12.1) H 03/19/16 16:48 ABG pCO2 50 mmHg (35-45) H 03/20/16 04:59 ABG HCO3 34.0 mEQ/L (21-27) H 03/20/16 04:59 ABG Total CO2 35.5 mEq/L (20-26) H 03/20/16 04:59 ABG Base Excess 8.8 mEq/L (-2.0 to 3.0) H 03/20/16 04:59 Creatinine 3.56 mg/dL (0.72-1.25) H 03/20/16 02:45 Est GFR ( Amer) 21 (> 60) L 03/20/16 02:45 Est GFR (Non-Af Amer) 17 (> 60) L 03/20/16 02:45 Glucose 151 mg/dL (70-99) H 03/20/16 02:45 POC Glucose 157 (58-89) H 03/19/16 23:58 AST 60 Units/L (5-34) H 03/19/16 09:54 ALT 73 Units/L (0-55) H 03/19/16 09:54 Alkaline Phosphatase 294 Units/L (38-126) H 03/19/16 09:54 Troponin I 0.21 ng/mL (0-0.03) H* 03/19/16 14:13 Serum Total Protein 5.6 g/dL (6.0-8.3) L 03/19/16 09:54 Albumin 2.1 g/dL (3.5-5.0) L 03/19/16 23:00 Albumin/Globulin Ratio 0.8 (1.1-2.2) L 03/19/16 09:54 - Microbiology Findings Microbiology Findings: Microbiology, Last 48 Hours 03/18/16 21:51 Blood Culture - Preliminary Central Venous Catheter No growth. 03/18/16 21:39 Blood Culture - Preliminary Central Venous Catheter No growth. - Clinical Findings Intake & Output: Intake & Output 03/19/16 03/19/16 03/20/16 15:59 23:59 07:59 Intake Total 47459.3 / 33452.3 1628.0 / 1628.0 813.7 / 813.7 Output Total 1132 / 1132 1006 / 1006 971 / 971 Balance 9304.3 / 9304.3 622.0 / 622.0 -157.3 / -157.3 Weight 93 kg
[2016-03-20] MEDS: Calcium Chloride 4,000 MG in 0.9 % Sodium Chloride 1,000 ML CRRT SCH ×2 (06:58→08:57)
[2016-03-20] MEDS ORDERED: Dexmedetomidine HCl 400 MCG/100 ML MLS IVC SCH (07:00)
[2016-03-20 07:39] LABS: Magnesium 1.8 mg/dL (1.6-2.6)
[2016-03-20] MEDS: FentaNYL (PF) 1,000 MCG in 0.9 % Sodium Chloride 80 ML IVC SCH ×2 (07:51→18:01)
[2016-03-20] MEDS ORDERED: Vancomycin 1,000 MG in D5% in Water 250 ML IVPB ONE (08:30)
--- NOTE | 2016-03-20 08:44 | Nephrology Progress Note ---
Date of Encounter: 03/20/16 Time of Encounter: 08:44 - Assessment and Plan (1) ESRD (end stage renal disease) on dialysis Current Visit: Yes Status: Chronic Patient has received approximately 24 hours of CVVHDF, with improvement and not only his volume status but hyperkalemia. Serum potassium 4.5 today and serum creatinine 3.56. We will continue to run Ivett until the filter clots or until this evening, which ever comes first. We will switch back to intermittent hemodialysis. Citrate has been discontinued as the patient's serum bicarbonate is elevated. Serum calcium also being repleted at this time. Continue a renal protective strategy. (2) Hyperkalemia Current Visit: Yes Status: Resolved Resolved with CVVHDF. Continue to monitor closely with switching back to intermittent hemodialysis. (3) Cardiac arrest Current Visit: Yes Status: Resolved (4) Acute respiratory failure with hypoxia Current Visit: Yes Status: Acute Currently intubated and sedated. Chest x-ray today with improved pulmonary edema, persistent left lower lobe atelectasis versus pneumonia. Management per ICU team. Pharmacy to dose vancomycin. (5) Dialysis AV fistula malfunction Current Visit: Yes Status: Acute On Saturday, March 16 patient had a malfunction of his AV fistula. Interventional radiology performed a thrombectomy with success and amish of his AV fistula thrill. On Saturday status post cardiac arrest patient again lost AV fistula function. I spoke with interventional radiology this morning and they advised that they would like to defer treatment until the patient is more stable and out of the ICU. They advised to keep the temporary dialysis catheter at this time. Right femoral temporary hemodialysis catheter in place. Qualifiers: Encounter type: initial encounter Qualified Code(s): T82.590A - Other mechanical complication of surgically created arteriovenous fistula, initial encounter (6) Insulin dependent diabetes mellitus Current Visit: Yes Status: Chronic Continues on insulin drip for tight glycemic control. Management per ICU team. (7) Hypertension Current Visit: Yes Status: Chronic Qualifiers: Hypertension type: essential hypertension Qualified Code(s): I10 - Essential (primary) hypertension Subjective Principal diagnosis: s/p cardiopulmonary arrest Interval history: Patient seen and examined at the bedside. Remains intubated and sedated. Precedex started and attempting to wean Versed. Net negative in the last 24hrs with CVVHDF. Serum potassium as well as creatinine continuing to improve. We will discontinue Ivett later this evening. Remains on low-dose pressor support , but continuing to wean. Objective - Vital Signs Vital signs: Vital Signs Temp Pulse Resp BP Pulse Ox 03/20/16 08:00 97.7 F 78 14 110/52 100 03/20/16 07:50 78 03/20/16 07:00 80 14 117/53 99 03/20/16 06:02 14 111/52 99 03/20/16 06:00 76 14 111/52 99 03/20/16 05:00 73 14 119/62 99 03/20/16 04:09 14 105/53 99 03/20/16 04:00 97.3 F L 73 14 105/53 100 03/20/16 03:30 71 03/20/16 03:00 71 15 128/57 100 03/20/16 02:20 15 100 03/20/16 02:00 64 14 117/59 100 03/20/16 00:57 64 14 94/48 100 03/20/16 00:00 95.6 F L 65 14 93/50 100 03/19/16 23:00 64 14 126/60 100 03/19/16 22:05 14 122/62 100 03/19/16 22:00 61 14 105/57 100 03/19/16 21:00 60 14 106/54 100 03/19/16 20:00 97.4 F L 65 14 116/59 100 03/19/16 19:56 14 117/58 100 03/19/16 19:00 97.4 F L 62 14 104/55 100 03/19/16 18:00 64 14 89/48 100 03/19/16 17:09 14 99/60 100 03/19/16 17:00 64 14 99/60 100 03/19/16 15:54 97.4 F L 64 14 138/67 100 03/19/16 15:00 64 14 99/60 100 03/19/16 14:00 58 16 93/54 100 03/19/16 13:10 16 89/51 100 03/19/16 13:00 97.9 F 59 16 89/51 100 03/19/16 12:00 96.8 F L 57 14 99/55 100 03/19/16 11:45 55 03/19/16 11:00 96.8 F L 55 14 99/55 100 03/19/16 09:59 60 14 94/54 100 03/19/16 09:00 60 14 94/54 100 Intake and Output 03/19/16 03/20/16 03/20/16 23:59 07:59 15:59 Intake Total 1628.0 / 1628.0 1050.4 / 1050.4 0 / 0 Output Total 1006 / 1006 1195 / 1195 139 / 139 Balance 622.0 / 622.0 -144.6 / -144.6 -139 / -139 Intake: IV Fluids 1598.0 / 1598.0 1050.4 / 1050.4 Calcium Chloride 4,000 MG 1227 / 1227 772.1 / 772.1 In 0.9 % Sodium Chloride 1,000 ML @ 40 mls/hr CRRT CONT [facility]INCE Rx#: [id number] PrismaSATE BGK 4/2.5 5, 0 / 0 0 / 0 000 ML @ 1250 mls/hr CRRT CONT PRINCE Rx#:[id number] FentaNYL (PF) 1,000 MCG 85.9 / 85.9 100.0 / 100.0 In 0.9 % Sodium Chloride 80 ML @ 0.5 MCG/KG/HR 4. 77 mls/hr IVC CONT PRINCE Rx #:[id number] HumuLIN R 100 UNIT In 0. 7.6 / 7.6 8.1 / 8.1 9 % Sodium Chloride 100 ML @ 4 UNIT/HR 4.04 mls/ hr IVC CONT PRINCE Rx#: [id number] Versed 50 MG In 0.9 % 56.8 / 56.8 77.2 / 77.2 Sodium Chloride 90 ML @ 0 .02 MG/KG/HR 3.82 mls/hr IVC CONT PRINCE Rx#: [id number] Levophed 4 MG In Dextrose 92.7 / 92.7 0 / 0 5% 250 ML @ 2 MCG/MIN 7. 62 mls/hr IVC .CONT PRINCE Rx#:[id number] Zosyn 3.375 GM In 128 / 128 93 / 93 Dextrose 5% (Minibag+) 100 ML 100 ML @ 25 mls/hr IVPB Q8H PRINCE Rx#: [id number] Oral 0 / 0 0 / 0 0 / 0 Free Water 30 / 30 Output: Ivett 891 / 891 920 / 920 135 / 135 Urostomy 25 / 25 Catheter 4 / 4 Gastric Drainage 100 / 100 250 / 250 0 / 0 Other: Blood Glucose* 160 150 203 - General Appearance Exam: General: Intubated and sedated HEENT: Normocephalic atraumatic, pupils are equal round and reactive to light and accommodation, tympanic membrane is intact, nares is patent, mucous membranes moist, endotracheal tube in place, no JVD, trachea is midline Cardiovascular: Regular rate and rhythm without murmur Respiratory: Lungs are clear to auscultation bilaterally, no wheezing, rhonchi, rales Abdomen: Soft, nontender, nondistended, positive bowel sounds in all 4 quadrants , urostomy bag in place Extremities: Warm, dry, no edema Neuro: Unable to assess due to the patient's mental status - Lab 03/20/16 02:45 03/20/16 02:45 Most recent lab results ABG pH 7.44 pH Units (7.32-7.45) 03/20/16 04:59 ABG pCO2 50 mmHg (35-45) H 03/20/16 04:59 ABG pO2 85 mmHg (85-104) 03/20/16 04:59 ABG HCO3 34.0 mEQ/L (21-27) H 03/20/16 04:59 ABG O2 Saturation 97 % (95-98) 03/20/16 04:59 Calcium 9.7 mg/dL (8.6-10.8) 03/20/16 02:45 Phosphorus 4.0 mg/dL (2.3-4.7) 03/19/16 23:00 Magnesium 1.8 mg/dL (1.6-2.6) 03/20/16 02:45 Consult Discharge Plan - Plan Referrals: NO,PCP [Primary Care Provider] -
[2016-03-20] MEDS: Chlorhexidine Rinse 15 ML MOUTHWASH MM SCH ×2 (08:52→21:05)
[2016-03-20] MEDS: Lacri-Lube 3.5 GM TUBE BOTH EYES SCH ×2 (08:53→20:44)
[2016-03-20] MEDS: Pantoprazole 40 MG VIAL IVP SCH (08:53)
[2016-03-20] MEDS: Aspirin 81 MG TAB.CHEW PO SCH (08:53)
[2016-03-20] MEDS ORDERED: Magnesium Sulfate 2 GM in D5% in Water 100 ML IVPB ONE (08:55)
[2016-03-20] MEDS: Norepinephrine 4 MG in D5% in Water 250 ML IVC SCH (09:14)
--- NOTE | 2016-03-20 09:39 | ECHO - Doppler Report ---
Echocardiogram Name: Donovan Bourne Date of Study: 03/19/2016 Date: 1945 Ht: 70.0 in Medical Record#: [id number] Age: 70 Wt: 205.0 lb Gender: Male BSA: 2.11 Order #: [id number] Location: [facility] Room #: 03 Reading Physician: Rosanna Engle DO Sample Puller: Archana Serna RDCS Ordering Physician: Alphonse Sheridan DO Primary Physician: None Indications: Pulmonary edema Impressions: Technically challenging-patient on ventilator. Overall, LV systolic function appears mildly reduced, EF 40-45%. Moderate LV diastolic dysfunction. Not all LV myocardial segments were well visualized. Normal right ventricular size and function. No significant valvular dysfunction. Recommend repeat study when patient clinical status improves. Findings: Study Quality * Technically sub-optimal due to clinical status. ECG Findings * Normal sinus rhythm. Left Ventricle * Mildly dilated left ventricle. * Moderate left ventricular diastolic dysfunction. * LVEF 40-45%. Left Atrium * Normal left atrial size. Mitral Valve * Normal mitral valve structure. * No mitral regurgitation. * No mitral stenosis. * Mild mitral annular calcification Aortic Valve * No aortic regurgitation. * Aortic valve not well visualized. * No aortic stenosis. Tricuspid Valve * Tricuspid valve not well visualized. * No tricuspid regurgitation. Pulmonic Valve * Pulmonic valve is not well visualized. * No pulmonic stenosis. * Trace pulmonic regurgitation. Pulmonary Artery * Pulmonary artery not well visualized. Right Ventricle * Normal right ventricular structure and function. Right Atrium * Normal right atrial size. Interatrial Septum * No evidence of PFO by color Doppler. IVC * Patient on ventilator. Pericardium * There is no pericardial effusion present. Aorta * Normally sized aortic root. History Diabetes Family History of CAD History of CAD/PTCA Myocardial Infarction Congestive Heart Failure 10/16/2011 a Previous Echo was performed. Measurements: BP: 123/ 59 2D Normal Values IVSd: .78 cm 0.6 - 1.0 cm LVIDd: 6.25 cm 3.7 - 5.6 cm LVPWd: 1.09 cm 0.6 - 1.1 cm LVIDs: 5.08 cm 1.5 - 3.6 cm AO: 2.70 cm < 4.0 cm LA: 3.70 cm 2.0 - 4.0cm %FS: 18.70 cm >25 % LVOT Diam: 2.05 cm LA volume: 73 Mitral Valve Peak E:1.19 m/sec Peak A:1.06 m/sec E/A Ratio:1.1 Peak E' Lat Jose Martin:5.84 cm/s Peak E' Med Jose Martin:5.84 cm/s E/E' Lat Ratio:20.4 E/E' Med Ratio:20.4 Updated by Rosanna Engle on 03/20/2016 9:32:34 AM electronically signed on 03/20/2016 9:34:22 AM with status of Final [employer] Rowe: 1=Normal, 2=Hypokinesis, 3=Akinesis, 4=Dyskinesis, 5=Aneurysmal, 6=Hyperkinetic, X=Not Visualized (Blank)=Missing
[2016-03-20] MEDS: Insulin Human Regular 100 UNIT in 0.9 % Sodium Chloride 100 ML IVC SCH (09:59)
--- NOTE | 2016-03-20 12:12 | Cardiology Consult Note ---
Date of Encounter: 03/20/16 Time of Encounter: 11:30 Assessment and Plan (1) PEA (Pulseless electrical activity) Current Visit: Yes Status: Acute s/p PEA with ROSC after one round of ACLS including CPR at [facility] PEA likely due to electrolyte derrangement, potassium 7.5 upon presentation to [facility] HD on Saturday d/t clogged AV fistula. Intubated due to acute respiratory failure, likely secondary to pulmonary edema (2) Systolic dysfunction Current Visit: Yes Status: Acute LVEF 40-45% per TTE, poor quality study. Suspect this may be chronic, discussed with who reports [place] in November 2015 , was told "bottom part of heart was not working" Reportedly underwent angioplasty at that time as well. Recommend obtaining records from [facility]---TTE, LHC. Volume mgmt per HD. Recommend addition of betablocker/ACEi if BP will tolerate by discharge, or may add as outpatient. Continue supportive care, recommend repeating TTE in the outpatient setting. Follows with Cardiology at [facility]. (3) Elevated troponin Current Visit: Yes Status: Acute Adynamic troponin elevation, 0.24, 0.21 in the setting of PEA arrest secondary to electrolyte derrangement (K 7.5); non-diagnostic for ACS. Likely secondary to demand ischemia. No further inpatient testing warranted at this juncture. Continue supportive care. (4) ESRD (end stage renal disease) on dialysis Current Visit: Yes Status: Chronic Approximately 24 hours of CVVHDF, with improvement and not only his volume status but hyperkalemia. Nephrology following, plan to change to HD. Discussion w patient/family: The assessment and plan as outlined above was discussed with the patient and/or family members who expressed understanding and agreement. All questions were answered. Thank you for involving us in the care of your patient. Please call with any questions. The patient will be discussed and reviewed with Dr. Isra Sheriff; changes to be made accordingly. History of Present Illness Consult date: 03/19/16 Requesting physician: Ludmila Tejada Consult reason: PEA arrest, LV dysfunction Chief complaint: Arrest History of present illness: Mr. Bourne is a 70 year old male with PMH significant for CAD, DMII, bladder CA , GERD, and ESRD on HD who presented to [facility] on 03/18/15 after PEA arrest at [facility]. Patient remains intubated and sedated in the ICU--HPI obtained from who was at beside. She reports he missed HD on Saturday due to clogged fistula--typically has issues with site every 2 months and requires intervention. On Saturday he complained of weakness, nausea, and worsening shortness of breath. He was then taken to [facility] where he reportedly sustained a PEA cardiac arrest and was intubated. He was then taken to [facility] for further evaluation. Past Med Surg Social Fam HX - Past Medical History Medical history: cancer (bladder), CHF (unclear etiology--awaiting records. ), coronary artery disease, diabetes, hypertension, myocardial infarction, renal disease Psychiatric history: no psych history - Past Surgical History Surgical History: cholecystectomy, vascular surgery - Social History Smoking Status: Never smoker Smokeless Tobacco Status: No Alcohol use: none Drug use: none Medications and Allergies Aspirin [Lo-Dose Aspirin EC] 81 mg PO DAILY 03/18/16 [History] Calcium Acetate [Phos-LO] 667 mg PO TIDAC 03/18/16 [History] Ergocalciferol (VITAMIN D2) [Vitamin D2] 50,000 unit PO QWEEK 03/18/16 [History] Insulin ASPART [Novolog Flexpen] 12 - 14 unit SQ TID 03/18/16 [History] Insulin DETEMIR [Levemir] 20 unit SQ HS 03/18/16 [History] Levothyroxine [Synthroid] 25 mcg PO DAILY 03/18/16 [History] Omeprazole [PriLOSEC] 20 mg PO BID 03/18/16 [History] Simvastatin [Zocor] 40 mg PO HS 03/18/16 [History] Allergies codeine Allergy (Unknown, Verified 03/19/16 07:08) See Comments UNSURE OF REACTION- LISTED ON PATIENT'S ECW All Systems Review: A 10-system review of systems was performed and is negative for pertinent findings except as documented above in the HPI. - Cardiovascular Cardiovascular: as per HPI Physical Examination Vital Signs, Last 4 Hours Temp Pulse Resp BP Pulse Ox 03/20/16 12:00 97.6 F 80 16 144/62 98 03/20/16 11:31 70 03/20/16 11:29 18 122/59 100 03/20/16 11:00 70 14 126/56 100 03/20/16 10:00 63 14 150/64 100 03/20/16 09:00 64 14 133/59 100 General: Other (intubated/sedated) Cardiac: Reg Rate and Rhythm, Normal S1 and S2, Other (systolic murmur present) Lungs: Normal Breath Sounds (anterior only) Neuro: Other (intubated/sedated) Abdomen: Soft, Non-Tender Extremities: No Edema, Normal Pulses Results 03/20/16 02:45 03/20/16 02:45 Lab Results 03/19/16 03/19/16 03/19/16 14:13 16:48 16:48 WBC 10.6 Hgb 9.8 L Hct 28.9 L Plt Count 186 INR 1.1 APTT 32.0 Sodium Potassium Chloride Carbon Dioxide BUN Creatinine Glucose Calcium Magnesium Troponin I 0.21 H* 03/19/16 03/19/16 03/20/16 16:48 23:00 02:45 WBC 8.3 Hgb 9.2 L Hct 27.6 L Plt Count 211 INR APTT Sodium 135 L 136 Potassium 4.4 4.6 H Chloride 99 103 Carbon Dioxide 26 25 BUN 38 H D 30 H Creatinine 4.64 H 3.91 H Glucose 172 H 158 H Calcium 8.7 9.4 Magnesium 2.0 Troponin I 03/20/16 03/20/16 02:45 06:40 WBC Hgb Hct Plt Count INR APTT 30.2 Sodium 137 Potassium 4.5 Chloride 103 Carbon Dioxide 25 BUN 26 Creatinine 3.56 H Glucose 151 H Calcium 9.7 Magnesium 1.8 Troponin I - Imaging and Cardiology Echo: report reviewed Other Results: 12 hour tele: avg HR=73 SR. No significant event noted. - EKG Interpretation EKG results cardiology: personally reviewed Consult Discharge Plan - Plan Referrals: NO,PCP [Primary Care Provider] -
[2016-03-20] MEDS: *HR* Heparin 5,000 UNIT/ML VIAL SQ SCH ×2 (13:50→21:05)
--- NOTE | 2016-03-20 15:24 | Electrocardiograph Report ---
[place] [id number] Test Date: 2016-03-19 Pat Name: Donovan Bourne Department: 109 Room: [facility] Gender: M Director Software: : 1945 Requested By: Wanda Carreno Order Number: [id number] Reading MD: Mirian Sheriff Measurements Intervals [place] Rate: 61 P: 29 KS: 182 QRS: 52 QRSD: 90 T: 87 QT: 502 QTc: 506 Interpretive Statements SINUS RHYTHM WITH SINUS ARRHYTHMIA PROLONGED QT INTERVAL Electronically Signed On 03-20-2016 15:23:15 EST by Mirian Sheriff
[2016-03-21] MEDS: FentaNYL (PF) 1,000 MCG in 0.9 % Sodium Chloride 80 ML IVC SCH ×2 (01:20→19:32)
[2016-03-21 04:11] LABS: Basophils % 0.3 %; Eosinophils # 0.1 K/mcL (0.0-0.6); Eosinophils % 1.6 %; Hematocrit 27.1 % (37.5-50.1); Hemoglobin 8.6 g/dL (12.9-16.9); Immature Granulocytes % 0.6 % (0-4); Lymphocytes # 1.2 K/mcL (0.6-4.6); Lymphocytes % 13.6 %; Mean Corpuscular HGB Conc 31.7 g/dL (31.6-35.5); Mean Corpuscular Hemoglobin 30.6 pg (28.0-33.3); Mean Corpuscular Volume 96.4 fL (83.0-100.0); Mean Platelet Volume 10.6 fL (9.4-12.4); Monocytes % 10.8 %; Neutrophils # 6.5 K/mcL (1.6-8.9); Platelet Count 206 K/mcL (140-400); Red Blood Count 2.81 M/mcL (4.19-5.50); Red Cell Distribution Width 14.4 % (11.5-14.5); Segmented Neutrophils % 73.1 %
[2016-03-21 04:15] LABS: Ionized Calcium 1.34 mmol/L (1.15-1.35)
[2016-03-21 04:30] LABS: Calcium 9.7 mg/dL (8.6-10.8); Magnesium 1.8 mg/dL (1.6-2.6); Phosphorous 3.1 mg/dL (2.3-4.7); Potassium 5.1 mEq/L (3.5-4.5)
[2016-03-21] MEDS: Piperacillin/Tazobactam 3.375 GM in D5% in Water (Mini-Bag+) 100 ML IVPB SCH ×2 (05:16→21:31)
--- NOTE | 2016-03-21 06:54 | Pulmonology Progress Note ---
<Amador Patel W - Last Filed: 03/21/16 09:59> Objective PUL Vital signs: Last Vital Signs Temp 98.0 F 03/21/16 07:49 Pulse 96 03/21/16 08:00 Resp 14 03/21/16 08:11 BP 137/67 03/21/16 08:11 Pulse Ox 99 03/21/16 08:11 Ventilator Settings Ventilator Settings: Ventilator Settings, Last 8 Hours Ventilator Mode A/C Ventilator Mode A/C Ventilator Mode A/C Ventilator Mode A/C Ventilator Mode A/C Ventilator Tidal Volume 500 Setting Ventilator Tidal Volume 500 Setting Ventilator Tidal Volume 500 Setting Ventilator Tidal Volume 500 Setting Ventilator Tidal Volume 500 Setting Ventilator Respiratory Rate 14 Setting Ventilator Respiratory Rate 14 Setting Ventilator Respiratory Rate 14 Setting Ventilator Respiratory Rate 14 Setting Ventilator Respiratory Rate 14 Setting Actual Respiratory Rate 14 Actual Respiratory Rate 14 Actual Respiratory Rate 14 Actual Respiratory Rate 14 Actual Respiratory Rate 14 Positive End Expiratory 5 Pressure Positive End Expiratory 5 Pressure Positive End Expiratory 5 Pressure Positive End Expiratory 5 Pressure Positive End Expiratory 5 Pressure Peak Inspiratory Airway 22 Pressure Peak Inspiratory Airway 23 Pressure Peak Inspiratory Airway 27 Pressure Peak Inspiratory Airway 27 Pressure Peak Inspiratory Airway 24 Pressure Results - Laboratory Findings CBC and BMP: 03/21/16 03:53 03/21/16 03:53 ABG ABG pH 7.44 pH Units (7.32-7.45) 03/20/16 04:59 ABG pCO2 50 mmHg (35-45) H 03/20/16 04:59 ABG pO2 85 mmHg (85-104) 03/20/16 04:59 ABG O2 Saturation 97 % (95-98) 03/20/16 04:59 PT/INR, D-dimer PT 12.3 Seconds (9.4-12.1) H 03/19/16 16:48 Abnormal lab findings: Abnormal lab results RBC 2.81 M/mcL (4.19-5.50) L 03/21/16 03:53 Hgb 8.6 g/dL (12.9-16.9) L 03/21/16 03:53 Hct 27.1 % (37.5-50.1) L 03/21/16 03:53 PT 12.3 Seconds (9.4-12.1) H 03/19/16 16:48 ABG pCO2 50 mmHg (35-45) H 03/20/16 04:59 ABG HCO3 34.0 mEQ/L (21-27) H 03/20/16 04:59 ABG Total CO2 35.5 mEq/L (20-26) H 03/20/16 04:59 ABG Base Excess 8.8 mEq/L (-2.0 to 3.0) H 03/20/16 04:59 Potassium 5.1 mEq/L (3.5-4.5) H 03/21/16 03:53 Creatinine 4.29 mg/dL (0.72-1.25) H 03/21/16 03:53 Est GFR ( Amer) 17 (> 60) L 03/21/16 03:53 Est GFR (Non-Af Amer) 14 (> 60) L 03/21/16 03:53 BUN/Creatinine Ratio 5 (6-26) L 03/21/16 03:53 Glucose 150 mg/dL (70-99) H 03/21/16 03:53 POC Glucose 154 (58-89) H 03/20/16 23:53 AST 60 Units/L (5-34) H 03/19/16 09:54 ALT 73 Units/L (0-55) H 03/19/16 09:54 Alkaline Phosphatase 294 Units/L (38-126) H 03/19/16 09:54 Troponin I 0.21 ng/mL (0-0.03) H* 03/19/16 14:13 Serum Total Protein 5.6 g/dL (6.0-8.3) L 03/19/16 09:54 Albumin 2.1 g/dL (3.5-5.0) L 03/19/16 23:00 Albumin/Globulin Ratio 0.8 (1.1-2.2) L 03/19/16 09:54 - Microbiology Findings Microbiology Findings: Microbiology, Last 48 Hours 03/18/16 21:51 Blood Culture - Preliminary Central Venous Catheter No growth. 03/18/16 21:39 Blood Culture - Preliminary Central Venous Catheter No growth. - Clinical Findings Intake & Output: Intake & Output 03/20/16 03/21/16 03/21/16 23:59 07:59 15:59 Intake Total 198.9 / 198.9 270 / 270 Output Total 35 / 35 560 / 560 Balance 163.9 / 163.9 -290 / -290 Weight 96.071 kg Consult Discharge Plan - Plan Referrals: NO,PCP [Primary Care Provider] - - Attending Attestation I examined this patient and my medical decision-making was reviewed with the HOG RAISER/PA/Advanced Practice Nurse/Resident Physician. I agree with the documented findings, disposition and treatment plan as described except to the extent set forth below. I spent 35 min of Critical Care time with this patient. It involved decision making of high complexity to assess, manipulate, and support vital organ system failure and/or to prevent further life threatening deterioration of the patient' s condition. The time involved in the performance of separately reportable procedures was not counted toward critical care time. Patient seen and examined at bedside Labs, radiology, chart personally reviewed. All lines examined without evidence of infection. Neuropsych: cont fentanyl for pain stop versed PERRL/Moves all exts to command ( daily sedation holiday) Pulm: Intubated on vent acceptable oxygenation/ventilation. SBT failed yesterday agitation and cardiogenic pulmonary edema. Treating for possible aspiration PNA. SBT trial today after fluid removal by SENIOR ADMINISTRATOR SUPPORT Cards: Post PEA arrests likely s/t to electrolyte derrangement/CHF complicated by shock 2dECHO showed reduction in EF(wttnuz12%) Cards consulted possible basline CHF restarting BB today. FEN-GI: NPO for now if not liberated start enteral feedings. cont bowel regimen. cont PPi for prophylaxis Renal: ESRD was on CRRT for hyperkalemia and fluid removal now IHD today. Nephro following. replace electrolytes per protocol ID: concern for sepsis/aspiration stop Vanc cont Zosyn for total of 5 days Heme/Onc: Cont DVT prophylaxis. H/H stable trending down slightly wih inermittent mild blood return for OG (likely OG trauma) history of baseline anemia of CKD. History of Bladder CA with urostomy Endo: glucose monitored transition from insulin gtt to SSi coverage Integ/MSK: skin care per FINISHING TUNNEL OPERATOR protocol to prevent ulcers CODE: FULL family updated at bedside. <Ludmila Tejada - Last Filed: 03/21/16 11:03> Date of Encounter: 03/21/16 Time of Encounter: 06:30 Assessment and Plan (1) PEA (Pulseless electrical activity) Current Visit: Yes Status: Acute s/p PEA with ROSC after one round of ACLS at [facility] PEA likely due to electrolyte derrangement Intubated due to acute respiratory failure, likely secondary to pulmonary edema Received 2amps bicarb prior to transfer to [facility] CXR yesterday confirmed placement of central line and demonstrated pneumonia with suspected overlying pleural effusions, diffuse airspace and interstitial opacities possibly pulmonary edema. Echocardiogram demonstrated EF 40-45% Sedated on Fentanyl and Versed On ventilator with FiO2 35% at 99% oxygen saturation, PEEP: 5, TV: 500 Cardiac exam with RRR, Levaphed for pressure support as needed Pt of Dr. Tan, Right femoral dialysis catheter in place, K:5.1 today Currently Vancomycin and Zosyn for antibiotic coverage, plan to de-escalate today Heparin SQ, aspirin Insulin drip for glucose control, plan to transition to basal/SSI today (2) Acute respiratory failure Current Visit: Yes Status: Acute Was unable to complete dialysis on Saturday due to malfunctioning of dialysis access Acute respiratory failure likely secondary to pulmonary edema Intubated and sedated Continue ventilator support, consider SBT today Qualifiers: Respiratory failure complication: hypoxia Qualified Code(s): J96.01 - Acute respiratory failure with hypoxia (3) Pulmonary edema Current Visit: Yes Status: Acute Volume overload secondary to not completing dialysis session Saturday Continue ventilator support Qualifiers: Chronicity: acute Qualified Code(s): J81.0 - Acute pulmonary edema (4) ESRD (end stage renal disease) on dialysis Current Visit: Yes Status: Chronic Nephrology consulted On K:5.1 this morning (4.5 yesterday) BUN:23 Creatinine:4.29 (3.56 yesterday) Plan for dialysis today per nephrology Received 2amps of bicarb prior to transfer from [place] ED (5) Clotted dialysis access Current Visit: Yes Status: Acute pt s/p fistulogram and thrombectomy on 03/18/16 Yesterday, reported that IR would like to defer thrombectomy until pt is more stable and out of ICU Qualifiers: Encounter type: initial encounter Qualified Code(s): T82.49XA - Other complication of vascular dialysis catheter, initial encounter (6) Hyperkalemia Current Visit: Yes Status: Resolved Likely secondary to not finishing hemodialysis Saturday K:5.1 today Possible HD today per nephrology Continue to monitor labs (7) Diabetes mellitus Current Visit: Yes Status: Acute Insulin drip for glucose control, will transition to SQ Continue to monitor Qualifiers: Diabetes mellitus type: type 2 Diabetes mellitus complication status: with unspecified complications Diabetes mellitus halfway insulin use: with halfway use Qualified Code(s): E11.8 - Type 2 diabetes mellitus with unspecified complications; Z79.4 - senior living (current) use of insulin (8) Hypertension Current Visit: Yes Status: Chronic Qualifiers: Hypertension type: essential hypertension Qualified Code(s): I10 - Essential (primary) hypertension (9) DVT prophylaxis Current Visit: Yes Status: Acute Heparin SQ Subjective Principal diagnosis: s/p cardiopulmonary arrest Interval history: Mr. Bourne is resting comfortably today. He is intubated and sedated, however able to follow commands. Pt will open eyes, date puller fingers and move all extremities. He has a right femoral dialysis catheter and IJ CVC in place. Due to history of bladder cancer, pt has urostomy bag in RLQ. Objective PUL Vital signs: Last Vital Signs Temp 99.1 F 03/21/16 04:00 Pulse 95 03/21/16 06:00 Resp 14 03/21/16 06:08 BP 132/64 03/21/16 06:08 Pulse Ox 99 03/21/16 06:08 General appearance: no acute distress Eyes: nonicteric ENT: oropharynx moist Neck: supple Effort: other (Ventilator support) Auscultation: bilateral: clear Cardiovascular: other (Regular rhythm, tachycardic) Gastrointestinal: normoactive bowel sounds, soft, non-distended Extremities: no cyanosis, no edema, no clubbing, pink and warm Musculoskeletal: no deformities Ventilator Settings Ventilator Settings: Ventilator Settings, Last 8 Hours Ventilator Mode A/C Ventilator Mode A/C Ventilator Mode A/C Ventilator Mode A/C Ventilator Mode A/C Ventilator Mode A/C Ventilator Tidal Volume 500 Setting Ventilator Tidal Volume 500 Setting Ventilator Tidal Volume 500 Setting Ventilator Tidal Volume 500 Setting Ventilator Tidal Volume 500 Setting Ventilator Tidal Volume 500 Setting Ventilator Respiratory Rate 14 Setting Ventilator Respiratory Rate 14 Setting Ventilator Respiratory Rate 14 Setting Ventilator Respiratory Rate 14 Setting Ventilator Respiratory Rate 14 Setting Ventilator Respiratory Rate 14 Setting Actual Respiratory Rate 14 Actual Respiratory Rate 14 Actual Respiratory Rate 14 Actual Respiratory Rate 14 Actual Respiratory Rate 14 Actual Respiratory Rate 14 Positive End Expiratory 5 Pressure Positive End Expiratory 5 Pressure Positive End Expiratory 5 Pressure Positive End Expiratory 5 Pressure Positive End Expiratory 5 Pressure Positive End Expiratory 5 Pressure Peak Inspiratory Airway 23 Pressure Peak Inspiratory Airway 27 Pressure Peak Inspiratory Airway 27 Pressure Peak Inspiratory Airway 24 Pressure Peak Inspiratory Airway 23 Pressure Peak Inspiratory Airway 23 Pressure Results - Laboratory Findings CBC and BMP: 03/21/16 03:53 03/21/16 03:53 ABG ABG pH 7.44 pH Units (7.32-7.45) 03/20/16 04:59 ABG pCO2 50 mmHg (35-45) H 03/20/16 04:59 ABG pO2 85 mmHg (85-104) 03/20/16 04:59 ABG O2 Saturation 97 % (95-98) 03/20/16 04:59 PT/INR, D-dimer PT 12.3 Seconds (9.4-12.1) H 03/19/16 16:48 Abnormal lab findings: Abnormal lab results RBC 2.81 M/mcL (4.19-5.50) L 03/21/16 03:53 Hgb 8.6 g/dL (12.9-16.9) L 03/21/16 03:53 Hct 27.1 % (37.5-50.1) L 03/21/16 03:53 PT 12.3 Seconds (9.4-12.1) H 03/19/16 16:48 ABG pCO2 50 mmHg (35-45) H 03/20/16 04:59 ABG HCO3 34.0 mEQ/L (21-27) H 03/20/16 04:59 ABG Total CO2 35.5 mEq/L (20-26) H 03/20/16 04:59 ABG Base Excess 8.8 mEq/L (-2.0 to 3.0) H 03/20/16 04:59 Potassium 5.1 mEq/L (3.5-4.5) H 03/21/16 03:53 Creatinine 4.29 mg/dL (0.72-1.25) H 03/21/16 03:53 Est GFR ( Amer) 17 (> 60) L 03/21/16 03:53 Est GFR (Non-Af Amer) 14 (> 60) L 03/21/16 03:53 BUN/Creatinine Ratio 5 (6-26) L 03/21/16 03:53 Glucose 150 mg/dL (70-99) H 03/21/16 03:53 POC Glucose 154 (58-89) H 03/20/16 23:53 AST 60 Units/L (5-34) H 03/19/16 09:54 ALT 73 Units/L (0-55) H 03/19/16 09:54 Alkaline Phosphatase 294 Units/L (38-126) H 03/19/16 09:54 Troponin I 0.21 ng/mL (0-0.03) H* 03/19/16 14:13 Serum Total Protein 5.6 g/dL (6.0-8.3) L 03/19/16 09:54 Albumin 2.1 g/dL (3.5-5.0) L 03/19/16 23:00 Albumin/Globulin Ratio 0.8 (1.1-2.2) L 03/19/16 09:54 - Microbiology Findings Microbiology Findings: Microbiology, Last 48 Hours 03/18/16 21:51 Blood Culture - Preliminary Central Venous Catheter No growth. 03/18/16 21:39 Blood Culture - Preliminary Central Venous Catheter No growth. - Clinical Findings Intake & Output: Intake & Output 03/20/16 03/20/16 03/21/16 15:59 23:59 07:59 Intake Total 1927.18 / 1927.18 198.9 / 198.9 270 / 270 Output Total 1491 / 1491 35 / 35 560 / 560 Balance 436.18 / 436.18 163.9 / 163.9 -290 / -290 Weight 96.3 kg 96.071 kg
[2016-03-21] MEDS ORDERED: Albumin 25% 12.5gm/50mL 12.5 GM/50 ML IV.SOLN IVPB PRN (08:22)
[2016-03-21] MEDS ORDERED: 0.9 % Sodium Chloride 250 ML IV PRN (08:22)
--- NOTE | 2016-03-21 08:43 | Nephrology Progress Note ---
Date of Encounter: 03/21/16 Time of Encounter: 08:43 - Assessment and Plan (1) ESRD (end stage renal disease) on dialysis Current Visit: Yes Status: Chronic Patient received approximately 36 hours of CVVHDF, with improvement and not only his volume status but hyperkalemia. Discontinued yesterday afternoon. Serum potassium 5.1 today. HD today with goal of 3-4kg removal. Continue a renal protective strategy. (2) Hyperkalemia Current Visit: Yes Status: Resolved Resolved with CVVHDF. Continue to monitor closely with switching back to intermittent hemodialysis today. (3) Cardiac arrest Current Visit: Yes Status: Resolved (4) Acute respiratory failure with hypoxia Current Visit: Yes Status: Acute Currently intubated. Management per ICU team. Attempt SBT after HD today. (5) Dialysis AV fistula malfunction Current Visit: Yes Status: Acute On Saturday, March 16 patient had a malfunction of his AV fistula. Interventional radiology performed a thrombectomy with success and denominational of his AV fistula thrill. On Saturday status post cardiac arrest patient again lost AV fistula function. I spoke with interventional radiology and they advised that they would like to defer treatment until the patient is more stable and out of the ICU. They advised to keep the temporary dialysis catheter at this time. Right femoral temporary hemodialysis catheter in place. Qualifiers: Encounter type: initial encounter Qualified Code(s): T82.590A - Other mechanical complication of surgically created arteriovenous fistula, initial encounter (6) Insulin dependent diabetes mellitus Current Visit: Yes Status: Chronic Continues on insulin drip for tight glycemic control. Management per ICU team. (7) Hypertension Current Visit: Yes Status: Chronic Qualifiers: Hypertension type: essential hypertension Qualified Code(s): I10 - Essential (primary) hypertension Subjective Principal diagnosis: s/p cardiopulmonary arrest Interval history: Patient seen and examined at the bedside. Failed SBT yesterday due to agitation and pulmonary edema. Plan for regular HD today with fluid removal. Potassium 5.1 today. Objective - Vital Signs Vital signs: Vital Signs Temp Pulse Resp BP Pulse Ox 03/21/16 08:11 14 137/67 99 03/21/16 08:00 96 14 124/62 99 03/21/16 07:49 98.0 F 03/21/16 07:41 96 03/21/16 07:00 96 14 121/58 99 03/21/16 06:08 14 132/64 99 03/21/16 06:00 95 14 132/64 99 03/21/16 05:00 96 14 119/54 97 03/21/16 04:00 99.1 F 101 14 127/55 93 L 03/21/16 03:54 14 110/52 95 03/21/16 03:00 93 14 100/53 97 03/21/16 02:03 14 111/61 94 L 03/21/16 02:00 98 14 111/61 97 03/21/16 01:00 98 14 102/55 97 03/21/16 00:15 99.4 F 03/21/16 00:00 99.4 F 96 14 122/61 96 03/20/16 23:44 14 117/54 96 03/20/16 23:00 102 14 117/54 96 03/20/16 22:13 14 98/54 95 03/20/16 22:00 133 14 98/54 96 03/20/16 21:00 102 14 111/63 94 L 03/20/16 20:04 14 135/66 97 03/20/16 20:00 98.4 F 101 14 135/66 97 03/20/16 19:48 98.4 F 03/20/16 19:00 86 14 106/61 98 03/20/16 18:00 90 14 115/60 97 03/20/16 17:11 14 114/63 98 03/20/16 17:00 89 14 114/63 98 03/20/16 16:00 98.0 F 96 14 108/54 96 03/20/16 15:40 14 111/54 96 03/20/16 15:25 87 03/20/16 15:00 87 14 114/60 96 03/20/16 14:30 19 119/53 93 L 03/20/16 14:00 94 14 119/53 93 L 03/20/16 13:00 130 18 180/70 94 L 03/20/16 12:50 15 134/58 99 03/20/16 12:00 97.6 F 80 16 144/62 98 03/20/16 11:31 70 03/20/16 11:29 18 122/59 100 03/20/16 11:00 70 14 126/56 100 03/20/16 10:00 63 14 150/64 100 03/20/16 09:00 64 14 133/59 100 Intake and Output 03/20/16 03/21/16 03/21/16 23:59 07:59 15:59 Intake Total 198.9 / 198.9 270 / 270 Output Total 35 / 35 560 / 560 Balance 163.9 / 163.9 -290 / -290 Intake: IV Fluids 198.9 / 198.9 270 / 270 FentaNYL (PF) 1,000 MCG 53.3 / 53.3 100 / 100 In 0.9 % Sodium Chloride 80 ML @ 0.5 MCG/KG/HR 4. 77 mls/hr IVC CONT PRINCE Rx #:[id number] HumuLIN R 100 UNIT In 0. 4.0 / 4.0 0 / 0 9 % Sodium Chloride 100 ML @ 4 UNIT/HR 4.04 mls/ hr IVC CONT PRINCE Rx#: [id number] Versed 50 MG In 0.9 % 41.6 / 41.6 70 / 70 Sodium Chloride 90 ML @ 0 .02 MG/KG/HR 3.82 mls/hr IVC CONT PRINCE Rx#: [id number] Zosyn 3.375 GM In 100 / 100 100 / 100 Dextrose 5% (Minibag+) 100 ML 100 ML @ 25 mls/hr IVPB Q8H PRINCE Rx#: [id number] Output: Urostomy 135 / 135 Gastric Drainage 425 / 425 Other: Weight 96.071 kg Blood Glucose* 132 138 154 Patient Weight 03/21/16 23:59 Weight 96.071 kg - General Appearance Exam: General: Intubated, off sedation at this time, follows commands HEENT: Normocephalic atraumatic, pupils are equal round and reactive to light and accommodation, tympanic membrane is intact, nares is patent, mucous membranes moist, endotracheal tube in place, no JVD, trachea is midline Cardiovascular: Regular rate and rhythm without murmur Respiratory: Lungs are clear to auscultation bilaterally, no wheezing, rhonchi, rales Abdomen: Soft, nontender, nondistended, positive bowel sounds in all 4 quadrants , urostomy bag in place Extremities: Warm, dry, trace LE edema Neuro: Nonfocal exam - Lab 03/21/16 03:53 03/21/16 03:53 Most recent lab results ABG pH 7.44 pH Units (7.32-7.45) 03/20/16 04:59 ABG pCO2 50 mmHg (35-45) H 03/20/16 04:59 ABG pO2 85 mmHg (85-104) 03/20/16 04:59 ABG HCO3 34.0 mEQ/L (21-27) H 03/20/16 04:59 ABG O2 Saturation 97 % (95-98) 03/20/16 04:59 Calcium 9.7 mg/dL (8.6-10.8) 03/21/16 03:53 Phosphorus 3.1 mg/dL (2.3-4.7) 03/21/16 03:53 Magnesium 1.8 mg/dL (1.6-2.6) 03/21/16 03:53 Consult Discharge Plan - Plan Referrals: NO,PCP [Primary Care Provider] -
[2016-03-21] MEDS: Aspirin 81 MG TAB.CHEW PO SCH (08:45)
[2016-03-21] MEDS: Levothyroxine 25 MCG TABLET PO SCH (08:45)
[2016-03-21] MEDS: Chlorhexidine Rinse 15 ML MOUTHWASH MM SCH ×2 (08:45→19:32)
[2016-03-21] MEDS: Pantoprazole 40 MG VIAL IVP SCH (08:46)
[2016-03-21] MEDS: *HR* Heparin 5,000 UNIT/ML VIAL SQ SCH ×2 (08:46→21:32)
[2016-03-21] MEDS ORDERED: Aminoglycoside Consult 1 EACH MC ONE (08:51)
--- NOTE | 2016-03-21 10:04 | Cardiology Progress Note ---
Date of Encounter: 03/21/16 Time of Encounter: 09:40 Assessment and Plan (1) PEA (Pulseless electrical activity) Current Visit: Yes Status: Acute s/p PEA with ROSC after one round of ACLS including CPR at [facility] PEA likely due to electrolyte derrangement, potassium 7.5 upon presentation to [facility] [place] Missed HD on Saturday d/t clogged AV fistula. Intubated due to acute respiratory failure, likely secondary to pulmonary edema (2) Systolic dysfunction Current Visit: Yes Status: Acute LVEF 40-45% per TTE (poor quality study) in the setting of PEA arrest. TTE 11/2015: ([place]) EF 55-60% LH 11/2015: mild, non-obstructive, 2-vessel CAD Recommend addition of betablocker/ACEi if BP will tolerate by discharge, or may add as outpatient. Continue supportive care, recommend repeating TTE in the outpatient setting in 3 -4 weeks. No further cardiac testing warranted at this time, follow-up with primary assistant service manager at [facility] in 1-2 weeks after d/c. (3) Elevated troponin Current Visit: Yes Status: Acute Adynamic troponin elevation, 0.24, 0.21 in the setting of PEA arrest secondary to electrolyte derrangement (K 7.5); non-diagnostic for ACS. Likely secondary to demand ischemia. No further inpatient testing warranted at this juncture. Continue supportive care. (4) ESRD (end stage renal disease) on dialysis Current Visit: Yes Status: Chronic Nephrology following, CVVHD d/c'ed yesterday, tentative HD today. Discussion w patient/family: The assessment and plan as outlined above was discussed with the patient and/or family members who expressed understanding and agreement. All questions were answered. Thank you for involving us in the care of your patient. Please call with any questions. The patient was discussed and reviewed with Dr. Isra Sheriff who agrees with plan ; Cardiology will sign-off, please call with questions. Subjective Principal diagnosis: s/p cardiopulmonary arrest Interval history: Seen and examined. Remains intubated and sedated. Levophed on standby--BP stable. Reviewed records received from [facility]. Objective Vital Signs, Last 4 Hours Temp Pulse Resp BP Pulse Ox 03/21/16 09:10 14 137/67 99 03/21/16 09:00 104 14 136/66 99 03/21/16 08:11 14 137/67 99 03/21/16 08:00 96 14 124/62 99 03/21/16 07:49 98.0 F 03/21/16 07:41 96 03/21/16 07:00 96 14 121/58 99 03/21/16 06:08 14 132/64 99 03/21/16 06:00 95 14 132/64 99 General: Other (intubated/sedated) HEENT: Atraumatic, Normocephaly, Mucus Membranes Moist Cardiac: Reg Rate and Rhythm, Normal S1 and S2, Other (systolic) Lungs: Normal Breath Sounds (anterior only) Neuro: Other (intubated/sedated) Extremities: No Edema, Normal Pulses Results 03/21/16 03:53 03/21/16 03:53 Lab Results 03/21/16 03/21/16 03:53 03:53 WBC 8.8 Hgb 8.6 L Hct 27.1 L Plt Count 206 Sodium 138 Potassium 5.1 H Chloride 104 Carbon Dioxide 27 BUN 23 Creatinine 4.29 H Glucose 150 H Calcium 9.7 Magnesium 1.8 - Imaging and Cardiology Echo: report reviewed Cardiac cath: report reviewed Other Results: Telemetry review: - EKG Interpretation EKG results cardiology: personally reviewed Consult Discharge Plan - Plan Referrals: NO,PCP [Primary Care Provider] -
[2016-03-21] MEDS: Lacri-Lube 3.5 GM TUBE BOTH EYES SCH ×2 (10:11→19:33)
[2016-03-21] MEDS ORDERED: Furosemide 40 MG/4 ML VIAL IVP ONE (10:32)
[2016-03-21] MEDS ORDERED: D5% in Water 1,000 ML IV PRN (10:33)
[2016-03-21] MEDS ORDERED: Magnesium Sulfate 2 GM in D5% in Water 100 ML IVPB ONE (10:35)
[2016-03-21] MEDS: Insulin DETEMIR 100 UNIT/ML X5UNITS SQ SCH (11:23)
[2016-03-21] MEDS ORDERED: *HR* Metoprolol 5 MG/5 ML VIAL IVP ONE (12:06)
--- NOTE | 2016-03-21 15:12 | Electrocardiograph Report ---
[place] [id number] Test Date: 2016-03-20 Pat Name: Donovan Bourne Department: 109 Room: [facility] Gender: M Data Security Analyst: : [id number] Requested By: Wanda Carreno Order Number: [id number] Reading MD: Mirian Sheriff Measurements Intervals Brooks Rate: 69 P: 17 NM: 169 QRS: 32 QRSD: 89 T: 97 QT: 404 QTc: 423 Interpretive Statements SINUS RHYTHM WITH SINUS ARRHYTHMIA NONSPECIFIC T-WAVE ABNORMALITY Electronically Signed On 03-21-2016 15:10:39 EST by Mirian Sheriff
[2016-03-21] MEDS: *HR* LORazepam 2 MG/ML VIAL IVP PRN ×2 (15:51→22:21)
[2016-03-21] MEDS ORDERED: Dexmedetomidine HCl 400 MCG/100 ML MLS IVC ONE (16:07)
[2016-03-21] MEDS: Dexmedetomidine HCl 400 MCG/100 ML MLS IVC SCH (17:03)
[2016-03-21] MEDS: Insulin LISPRO 300 UNITS/3 ML VIAL SQ SCH ×4 (17:11→23:50)
[2016-03-21] MEDS: Insulin Human Regular 100 UNIT in 0.9 % Sodium Chloride 100 ML IVC SCH (19:35)
[2016-03-22 03:36] LABS: Basophils % 0.3 %; Eosinophils # 0.1 K/mcL (0.0-0.6); Eosinophils % 0.7 %; Hematocrit 26.3 % (37.5-50.1); Hemoglobin 8.7 g/dL (12.9-16.9); Immature Granulocytes % 0.7 % (0-4); Immature Platelets 5.3 % (1.1-6.1); Lymphocytes % 11.4 %; Mean Corpuscular HGB Conc 33.1 g/dL (31.6-35.5); Mean Corpuscular Hemoglobin 31.2 pg (28.0-33.3); Mean Corpuscular Volume 94.3 fL (83.0-100.0); Mean Platelet Volume 9.8 fL (9.4-12.4); Monocytes # 0.8 K/mcL (0.0-1.3); Monocytes % 9.8 %; Neutrophils # 6.6 K/mcL (1.6-8.9); Platelet Count 230 K/mcL (140-400); Red Blood Count 2.79 M/mcL (4.19-5.50); Red Cell Distribution Width 14.3 % (11.5-14.5); Segmented Neutrophils % 77.1 %
[2016-03-22] MEDS: Insulin LISPRO 300 UNITS/3 ML VIAL SQ SCH ×7 (03:43→23:19)
[2016-03-22 03:46] LABS: Magnesium 1.8 mg/dL (1.6-2.6); Phosphorous 3.8 mg/dL (2.3-4.7); Potassium 4.8 mEq/L (3.5-4.5)
[2016-03-22 04:18] LABS: Ionized Calcium 1.16 mmol/L (1.15-1.35)
[2016-03-22] MEDS: Dexmedetomidine HCl 400 MCG/100 ML MLS IVC SCH (05:00)
[2016-03-22] MEDS: Piperacillin/Tazobactam 3.375 GM in D5% in Water (Mini-Bag+) 100 ML IVPB SCH ×2 (06:17→17:27)
--- NOTE | 2016-03-22 06:50 | Pulmonology Progress Note ---
<JorgeAmador W - Last Filed: 03/22/16 07:56> Objective PUL Vital signs: Last Vital Signs Temp 97.5 F L 03/22/16 07:44 Pulse 79 03/22/16 06:00 Resp 24 03/22/16 06:00 BP 114/67 03/22/16 06:00 Pulse Ox 100 03/22/16 06:00 Results - Laboratory Findings CBC and BMP: 03/22/16 03:30 03/22/16 03:30 ABG ABG pH 7.44 pH Units (7.32-7.45) 03/20/16 04:59 ABG pCO2 50 mmHg (35-45) H 03/20/16 04:59 ABG pO2 85 mmHg (85-104) 03/20/16 04:59 ABG O2 Saturation 97 % (95-98) 03/20/16 04:59 PT/INR, D-dimer PT 12.3 Seconds (9.4-12.1) H 03/19/16 16:48 Abnormal lab findings: Abnormal lab results RBC 2.79 M/mcL (4.19-5.50) L 03/22/16 03:30 Hgb 8.7 g/dL (12.9-16.9) L 03/22/16 03:30 Hct 26.3 % (37.5-50.1) L 03/22/16 03:30 PT 12.3 Seconds (9.4-12.1) H 03/19/16 16:48 ABG pCO2 50 mmHg (35-45) H 03/20/16 04:59 ABG HCO3 34.0 mEQ/L (21-27) H 03/20/16 04:59 ABG Total CO2 35.5 mEq/L (20-26) H 03/20/16 04:59 ABG Base Excess 8.8 mEq/L (-2.0 to 3.0) H 03/20/16 04:59 Potassium 4.8 mEq/L (3.5-4.5) H 03/22/16 03:30 Creatinine 4.36 mg/dL (0.72-1.25) H 03/22/16 03:30 Est GFR ( Amer) 16 (> 60) L 03/22/16 03:30 Est GFR (Non-Af Amer) 14 (> 60) L 03/22/16 03:30 BUN/Creatinine Ratio 5 (6-26) L 03/22/16 03:30 Glucose 159 mg/dL (70-99) H 03/22/16 03:30 POC Glucose 154 (58-89) H 03/21/16 23:34 AST 60 Units/L (5-34) H 03/19/16 09:54 ALT 73 Units/L (0-55) H 03/19/16 09:54 Alkaline Phosphatase 294 Units/L (38-126) H 03/19/16 09:54 Troponin I 0.21 ng/mL (0-0.03) H* 03/19/16 14:13 Serum Total Protein 5.6 g/dL (6.0-8.3) L 03/19/16 09:54 Albumin 2.1 g/dL (3.5-5.0) L 03/19/16 23:00 Albumin/Globulin Ratio 0.8 (1.1-2.2) L 03/19/16 09:54 - Microbiology Findings Microbiology Findings: Microbiology, Last 48 Hours 03/18/16 21:51 Blood Culture - Preliminary Central Venous Catheter No growth. 03/18/16 21:39 Blood Culture - Preliminary Central Venous Catheter No growth. - Clinical Findings Intake & Output: Intake & Output 03/21/16 03/21/16 03/22/16 15:59 23:59 07:59 Intake Total 88 / 88 170 / 170 Output Total 200 / 200 300 / 300 75 / 75 Balance -200 / -200 -212 / -212 95 / 95 Weight 97.8 kg 91.217 kg Consult Discharge Plan - Plan Referrals: NO,PCP [Non-Partnered Physician] - - Attending Attestation I examined this patient and my medical decision-making was reviewed with the BURGLAR ALARM ASSEMBLER/PA/Advanced Practice Nurse/Resident Physician. I agree with the documented findings, disposition and treatment plan as described except to the extent set forth below. Patient seen and examined at bedside Labs, radiology, chart personally reviewed. All lines examined without evidence of infection. Neuropsych: alert and follows commands without focal deficit. mild lingering delirium suspected may have sequalae of post arrest neurological syndrome but will need to be followed over time to assess this. Pulm: Extubated yesterday. Now on NC o2 approx 2-3 liters with excellent saturation. Treating for aspiration PNA. Pulmonary edema treated with DESIGNER fluid removal. Cards: Post PEA arrests likely s/t to electrolyte derrangement/CHF complicated by shock 2dECHO showed reduction in EF([id number]%) Cards consulted patient with recent cath no further intervention Tirate BB today. FEN-GI: ADAT after bedside swallow eval. Renal: ESRD was on CRRT for hyperkalemia and fluid removal now IHD Nephro following. replace electrolytes per protocol ID: concern for sepsis/aspiration Zosyn day 05/16 Heme/Onc: Cont DVT prophylaxis. H/H stable history of baseline anemia of CKD. History of Bladder CA with urostomy Endo: glucose monitored cont basal boluse insulin coverage Integ/MSK: skin care per [facility] protocol to prevent ulcers CODE: FULL family updated at bedside. Medically stable for transfer to telemetry monitored medical floor <Ludmila Tejada - Last Filed: 03/22/16 08:33> Date of Encounter: 03/22/16 Time of Encounter: 06:43 Assessment and Plan (1) PEA (Pulseless electrical activity) Current Visit: Yes Status: Acute s/p PEA with ROSC after one round of ACLS at [facility] PEA likely due to electrolyte derrangement Intubated at [facility] due to acute respiratory failure, likely secondary to pulmonary edema-Extubated yesterday Received 2amps bicarb prior to transfer to [facility] Echocardiogram demonstrated EF 40-45% Cardiac exam with RRR, Metoprolol 50mg Q8H Pt of Dr. Tan, Right femoral dialysis catheter in place, K:4.8 today Currently Zosyn for antibiotic coverage (day 4) Heparin SQ, aspirin Basal insulin, SSI-medium dose (2) Acute respiratory failure Current Visit: Yes Status: Acute Was unable to complete dialysis on Saturday due to malfunctioning of dialysis access Acute respiratory failure likely secondary to pulmonary edema Extubated yesterday, currently on NC for oxygen supplementation Qualifiers: Respiratory failure complication: hypoxia Qualified Code(s): J96.01 - Acute respiratory failure with hypoxia (3) Pulmonary edema Current Visit: Yes Status: Acute Volume overload secondary to not completing dialysis session Saturday Qualifiers: Chronicity: acute Qualified Code(s): J81.0 - Acute pulmonary edema (4) ESRD (end stage renal disease) on dialysis Current Visit: Yes Status: Chronic Nephrology consulted K:4.8 this morning (5.1 yesterday) BUN:21 Creatinine:4.36 (4.29 yesterday) Received 2amps of bicarb prior to transfer from [facility] (5) Clotted dialysis access Current Visit: Yes Status: Acute pt s/p fistulogram and thrombectomy on 03/18/16 Yesterday, reported that IR would like to defer thrombectomy until pt is more stable and out of ICU Qualifiers: Encounter type: initial encounter Qualified Code(s): T82.49XA - Other complication of vascular dialysis catheter, initial encounter (6) Hyperkalemia Current Visit: Yes Status: Resolved Likely secondary to not finishing hemodialysis Saturday K:4.8 today Continue to monitor labs (7) Diabetes mellitus Current Visit: Yes Status: Acute Basal insulin, SSI-medium dose Continue to monitor Qualifiers: Diabetes mellitus type: type 2 Diabetes mellitus complication status: with unspecified complications Diabetes mellitus fpc insulin use: with 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 Bourne is resting comfortably today. 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 He has a right femoral dialysis catheter and IJ CVC in place. Due to history of bladder cancer, pt has urostomy bag in RLQ. Objective PUL Vital signs: Last Vital Signs Temp 97.8 F 03/22/16 03:41 Pulse 79 03/22/16 06:00 Resp 24 03/22/16 06:00 BP 114/67 03/22/16 06:00 Pulse Ox 100 03/22/16 06:00 General appearance: no acute distress, lethargic Eyes: nonicteric ENT: oropharynx moist Neck: supple Effort: normal Auscultation: bilateral: clear Cardiovascular: regular rate and rhythm Gastrointestinal: normoactive bowel sounds, soft, non-tender, non-distended Integumentary: normal Extremities: no cyanosis, no edema, no clubbing, pink and warm, pulses normal Musculoskeletal: no deformities mood appropriate, affect normal Results - Laboratory Findings CBC and BMP: 03/22/16 03:30 03/22/16 03:30 ABG ABG pH 7.44 pH Units (7.32-7.45) 03/20/16 04:59 ABG pCO2 50 mmHg (35-45) H 03/20/16 04:59 ABG pO2 85 mmHg (85-104) 03/20/16 04:59 ABG O2 Saturation 97 % (95-98) 03/20/16 04:59 PT/INR, D-dimer PT 12.3 Seconds (9.4-12.1) H 03/19/16 16:48 Abnormal lab findings: Abnormal lab results RBC 2.79 M/mcL (4.19-5.50) L 03/22/16 03:30 Hgb 8.7 g/dL (12.9-16.9) L 03/22/16 03:30 Hct 26.3 % (37.5-50.1) L 03/22/16 03:30 PT 12.3 Seconds (9.4-12.1) H 03/19/16 16:48 ABG pCO2 50 mmHg (35-45) H 03/20/16 04:59 ABG HCO3 34.0 mEQ/L (21-27) H 03/20/16 04:59 ABG Total CO2 35.5 mEq/L (20-26) H 03/20/16 04:59 ABG Base Excess 8.8 mEq/L (-2.0 to 3.0) H 03/20/16 04:59 Potassium 4.8 mEq/L (3.5-4.5) H 03/22/16 03:30 Creatinine 4.36 mg/dL (0.72-1.25) H 03/22/16 03:30 Est GFR ( Amer) 16 (> 60) L 03/22/16 03:30 Est GFR (Non-Af Amer) 14 (> 60) L 03/22/16 03:30 BUN/Creatinine Ratio 5 (6-26) L 03/22/16 03:30 Glucose 159 mg/dL (70-99) H 03/22/16 03:30 POC Glucose 154 (58-89) H 03/21/16 23:34 AST 60 Units/L (5-34) H 03/19/16 09:54 ALT 73 Units/L (0-55) H 03/19/16 09:54 Alkaline Phosphatase 294 Units/L (38-126) H 03/19/16 09:54 Troponin I 0.21 ng/mL (0-0.03) H* 03/19/16 14:13 Serum Total Protein 5.6 g/dL (6.0-8.3) L 03/19/16 09:54 Albumin 2.1 g/dL (3.5-5.0) L 03/19/16 23:00 Albumin/Globulin Ratio 0.8 (1.1-2.2) L 03/19/16 09:54 - Microbiology Findings Microbiology Findings: Microbiology, Last 48 Hours 03/18/16 21:51 Blood Culture - Preliminary Central Venous Catheter No growth. 03/18/16 21:39 Blood Culture - Preliminary Central Venous Catheter No growth. - Clinical Findings Intake & Output: Intake & Output 03/21/16 03/21/16 03/22/16 15:59 23:59 07:59 Intake Total 88 / 88 170 / 170 Output Total 200 / 200 300 / 300 25 / 25 Balance -200 / -200 -212 / -212 145 / 145 Weight 97.8 kg 91.217 kg
[2016-03-22] MEDS: Lacri-Lube 3.5 GM TUBE BOTH EYES SCH (08:04)
[2016-03-22] MEDS: Chlorhexidine Rinse 15 ML MOUTHWASH MM SCH (08:07)
[2016-03-22] MEDS: Pantoprazole 40 MG VIAL IVP SCH (08:07)
[2016-03-22] MEDS: *HR* Heparin 5,000 UNIT/ML VIAL SQ SCH ×2 (08:07→20:18)
[2016-03-22] MEDS: Aspirin 81 MG TAB.CHEW PO SCH (08:08)
[2016-03-22] MEDS: Levothyroxine 25 MCG TABLET PO SCH (08:08)
[2016-03-22] MEDS: Insulin DETEMIR 100 UNIT/ML X5UNITS SQ SCH (08:09)
--- NOTE | 2016-03-22 08:21 | Nephrology Progress Note ---
Date of Encounter: 03/22/16 Time of Encounter: 08:21 - Assessment and Plan (1) ESRD (end stage renal disease) on dialysis Current Visit: Yes Status: Chronic CVVHDF transitioned to intermittent hemodialysis. No indication for ultrafiltration today, we will resume her normal hemodialysis treatment tomorrow Serum potassium 4.8 today. Continue a renal protective strategy. (2) Hyperkalemia Current Visit: Yes Status: Resolved Resolved with CVVHDF. Continue to monitor closely with switching back to intermittent hemodialysis. (3) Cardiac arrest Current Visit: Yes Status: Resolved Post PEA arrest likely due to electrolyte derangement/CHF. No further intervention per cardiology as patient had had a recent cardiac catheterization. (4) Acute respiratory failure with hypoxia Current Visit: Yes Status: Acute Extubated yesterday. Now doing well on 2 L nasal cannula. Continuing treatment for aspiration pneumonia. Zosyn day 4 of 5. (5) Dialysis AV fistula malfunction Current Visit: Yes Status: Acute On March 16 patient had a malfunction of his AV fistula. Interventional radiology performed a thrombectomy with success and yarsani of his AV fistula thrill. On Saturday status post cardiac arrest patient again lost AV fistula function. I spoke with interventional radiology and they advised that they would like to defer treatment until the patient is more stable and out of the ICU. They advised to keep the temporary dialysis catheter at this time. Right femoral temporary hemodialysis catheter in place. Qualifiers: Encounter type: initial encounter Qualified Code(s): T82.590A - Other mechanical complication of surgically created arteriovenous fistula, initial encounter (6) Insulin dependent diabetes mellitus Current Visit: Yes Status: Chronic Management per primary team (7) Hypertension Current Visit: Yes Status: Chronic Qualifiers: Hypertension type: essential hypertension Qualified Code(s): I10 - Essential (primary) hypertension Subjective Principal diagnosis: s/p cardiopulmonary arrest Interval history: Patient seen and examined at the bedside. Extubated yesterday to BiPAP, now on 2L nasal cannula. Patient is alert and follows commands, but mildly confused. He has no complaints at this time. We will transfer to . Objective - Vital Signs Vital signs: Vital Signs Temp Pulse Resp BP Pulse Ox 03/22/16 07:44 97.5 F L 03/22/16 06:00 79 24 114/67 100 03/22/16 05:00 79 27 113/56 100 03/22/16 04:07 24 100 03/22/16 04:00 85 03/22/16 03:41 97.8 F 85 20 125/66 100 03/22/16 03:00 77 32 105/57 100 03/22/16 02:00 80 32 101/57 100 03/22/16 01:00 80 24 108/59 100 03/22/16 00:00 97.7 F 80 27 107/54 100 03/21/16 23:47 97.7 F 03/21/16 23:00 85 19 102/57 100 03/21/16 22:00 92 13 128/64 98 03/21/16 21:00 90 20 73/52 94 L 03/21/16 20:55 95/64 03/21/16 20:40 124/84 03/21/16 20:25 118/69 03/21/16 20:17 97.8 F 03/21/16 20:10 107/64 03/21/16 20:00 97.8 F 110 25 107/64 100 03/21/16 19:55 108/76 03/21/16 19:40 102/56 03/21/16 19:25 122/73 03/21/16 19:10 115/66 03/21/16 19:00 92 17 113/63 100 03/21/16 18:55 120/68 03/21/16 18:40 116/69 03/21/16 18:25 97.8 F 127/65 03/21/16 18:10 16 116/69 03/21/16 18:00 96 16 116/69 95 03/21/16 17:00 109 16 129/70 95 03/21/16 16:43 17 138/75 99 03/21/16 16:38 138/75 99 03/21/16 16:22 17 138/75 96 03/21/16 15:54 105 03/21/16 15:00 105 18 138/75 94 L 03/21/16 14:00 108 16 132/72 94 L 03/21/16 13:00 109 16 137/67 96 03/21/16 12:10 17 96 03/21/16 11:27 104 14 137/67 99 03/21/16 11:00 98.1 F 102 16 156/65 97 03/21/16 10:33 14 137/67 99 03/21/16 09:10 14 137/67 99 03/21/16 09:00 104 14 136/66 99 Intake and Output 03/21/16 03/22/16 03/22/16 23:59 07:59 15:59 Intake Total 88 / 88 170 / 170 Output Total 300 / 300 75 / 75 Balance -212 / -212 95 / 95 Intake: IV Fluids 170 / 170 PRECEDEX 400 mcg In 100 35 / 35 70 / 70 ml @ 0.2 MCG/KG/HR 4.89 mls/hr IVC .[id number] [facility] Rx#:[id number] FentaNYL (PF) 1,000 MCG 35 / 35 In 0.9 % Sodium Chloride 80 ML @ 0.5 MCG/KG/HR 4. 77 mls/hr IVC CONT [facility] Rx #:[id number] Versed 50 MG In 0.9 % 18 / 18 Sodium Chloride 90 ML @ 0 .02 MG/KG/HR 3.82 mls/hr IVC CONT [facility] Rx#: [id number] Zosyn 3.375 GM In 100 / 100 Dextrose 5% (Minibag+) 100 ML 100 ML @ 25 mls/hr IVPB Q12H [facility] Rx#: [id number] Oral 0 / 0 Output: Urostomy 250 / 250 25 / 25 Catheter 50 / 50 50 / 50 Other: Weight 91.217 kg Blood Glucose* 154 157 Hemodialysis Net Fluid 3240 Removed (mL) - General Appearance Exam: General: Patient is alert and in no acute distress HEENT: Normocephalic atraumatic, pupils are equal round and reactive to light and accommodation, tympanic membrane is intact, nares is patent, mucous membranes moist, throat is not injected, no JVD, trachea is midline Cardiovascular: Regular rate and rhythm without murmur Respiratory: Lungs are clear to auscultation bilaterally, no wheezing, rhonchi, rales Abdomen: Soft, nontender, nondistended, positive bowel sounds in all 4 quadrants , urostomy bag in place Extremities: Warm, dry, no edema Neuro: A&Ox3, speech is appropriate, cranial nerves II through XII are normal as tested - Lab 03/22/16 03:30 03/22/16 03:30 Most recent lab results ABG pH 7.44 pH Units (7.32-7.45) 03/20/16 04:59 ABG pCO2 50 mmHg (35-45) H 03/20/16 04:59 ABG pO2 85 mmHg (85-104) 03/20/16 04:59 ABG HCO3 34.0 mEQ/L (21-27) H 03/20/16 04:59 ABG O2 Saturation 97 % (95-98) 03/20/16 04:59 Calcium 9.0 mg/dL (8.6-10.8) 03/22/16 03:30 Phosphorus 3.8 mg/dL (2.3-4.7) 03/22/16 03:30 Magnesium 1.8 mg/dL (1.6-2.6) 03/22/16 03:30 Consult Discharge Plan - Plan Referrals: NO,PCP [Non-Partnered Physician] -
[2016-03-22] MEDS ORDERED: Dextrose Gel 15 GM PO PRN ×2 (10:06)
[2016-03-22] MEDS ORDERED: 0.9 % Sodium Chloride 250 ML IV PRN (10:06)
[2016-03-22] MEDS ORDERED: Naloxone 0.4 MG/ML INJ IVP PRN (10:06)
[2016-03-22] MEDS ORDERED: Albumin 25% 12.5gm/50mL 12.5 GM/50 ML IV.SOLN IVPB PRN (10:06)
[2016-03-22] MEDS ORDERED: D5% in Water 1,000 ML IV PRN (10:06)
[2016-03-22] MEDS ORDERED: *HR* Dextrose 50 % in Water (Syg) 50 ML SYRINGE IVP PRN (10:06)
[2016-03-22] MEDS ORDERED: *HR* Metoprolol 5 MG/5 ML VIAL IVP ONE ×2 (12:44→16:00)
[2016-03-22] MEDS: *HR* LORazepam 2 MG/ML VIAL IVP PRN (15:44)
[2016-03-22] MEDS ORDERED: *HR* LORazepam 2 MG/ML VIAL IVP ONE (20:05)
[2016-03-23] MEDS: *HR* LORazepam 2 MG/ML VIAL IVP PRN (02:06)
[2016-03-23] MEDS: Insulin LISPRO 300 UNITS/3 ML VIAL SQ SCH ×5 (03:02→21:55)
[2016-03-23] MEDS ORDERED: *HR* Metoprolol 5 MG/5 ML VIAL IVP ONE (03:09)
[2016-03-23 03:15] LABS: Basophils # 0.1 K/mcL (0.0-0.2); Basophils % 0.4 %; Eosinophils # 0.1 K/mcL (0.0-0.6); Eosinophils % 0.5 %; Hematocrit 28.7 % (37.5-50.1); Hemoglobin 9.3 g/dL (12.9-16.9); Immature Granulocytes % 0.5 % (0-4); Lymphocytes # 1.1 K/mcL (0.6-4.6); Lymphocytes % 9.4 %; Mean Corpuscular HGB Conc 32.4 g/dL (31.6-35.5); Mean Corpuscular Hemoglobin 31.4 pg (28.0-33.3); Mean Platelet Volume 10.2 fL (9.4-12.4); Monocytes # 1.3 K/mcL (0.0-1.3); Monocytes % 11.1 %; Neutrophils # 9.2 K/mcL (1.6-8.9); Platelet Count 274 K/mcL (140-400); Red Blood Count 2.96 M/mcL (4.19-5.50); Red Cell Distribution Width 14.1 % (11.5-14.5); Segmented Neutrophils % 78.1 %
[2016-03-23 03:56] LABS: Calcium 9.9 mg/dL (8.6-10.8); Magnesium 1.8 mg/dL (1.6-2.6); Potassium 4.1 mEq/L (3.5-4.5)
[2016-03-23] MEDS ORDERED: 0.9 % Sodium Chloride 250 ML IV PRN (05:27)
[2016-03-23] MEDS: Levothyroxine 25 MCG TABLET PO SCH (06:00)
[2016-03-23] MEDS: Piperacillin/Tazobactam 3.375 GM in D5% in Water (Mini-Bag+) 100 ML IVPB SCH ×2 (06:03→16:56)
[2016-03-23 06:22] LABS: Bilirubin,Urine Negative (Negative); Blood,Urine Moderate (Negative); Clarity,Urine Cloudy (Clear); Color,Urine Yellow (Yellow); Glucose,Urine (UA) Normal (Normal); Ketones,Urine Negative (Negative); Leukocyte Esterase,Urine Negative (Negative); Nitrite,Urine Negative (Negative); PH,Urine 7.5 pH Units (5.0-8.0); Protein,Urine >=300 mg/dL (Neg-Trace); Specific Gravity,Urine 1.014 (1.010-1.025); Urobilinogen,Urine Normal (Normal)
[2016-03-23 06:25] LABS: Bacteria,Urine Many per hpf (None-Few); Hyaline Casts,Urine None Seen per lpf (None-Few); Squamous Epithelial Cell,Urine Many per lpf (None-Few)
[2016-03-23] MEDS: *HR* Heparin 5,000 UNIT/ML VIAL SQ SCH ×2 (06:37→22:30)
[2016-03-23] MEDS ORDERED: *HR* Heparin 10,000 UNIT/10 ML VIAL IV PRN (07:42)
[2016-03-23] MEDS ORDERED: 0.9 % Sodium Chloride 1,000 ML PRIME SCH (07:45)
[2016-03-23] MEDS ORDERED: 0.9 % Sodium Chloride 2,000 ML ONE (08:08)
[2016-03-23] MEDS: Pantoprazole 40 MG VIAL IVP SCH (08:16)
[2016-03-23] MEDS: Insulin DETEMIR 100 UNIT/ML X5UNITS SQ SCH (08:16)
[2016-03-23] MEDS ORDERED: Aspirin 81 MG TAB.CHEW PO SCH (09:00)
--- NOTE | 2016-03-23 11:50 | Nephrology Progress Note ---
Date of Encounter: 03/23/16 Time of Encounter: 11:30 - Assessment and Plan (1) Altered mental state Current Visit: Yes Status: Acute Likely medication related vs delerium Discussed with primary about trying haldol instead of ativan Discussed obtaining CT head as well Qualifiers: Altered mental status type: unspecified Qualified Code(s): R41.82 - Altered mental status, unspecified (2) Dialysis AV fistula malfunction Current Visit: Yes Status: Acute currently with temporary catheter, still need fistulogram once stable per IR Qualifiers: Encounter type: initial encounter Qualified Code(s): T82.590A - Other mechanical complication of surgically created arteriovenous fistula, initial encounter (3) ESRD (end stage renal disease) on dialysis Current Visit: Yes Status: Chronic HD wih UF planned today Hopefully should clear ativan and improve mentation if contributing to his issues (4) Hyperkalemia Current Visit: Yes Status: Resolved resolved Subjective Principal diagnosis: s/p cardiopulmonary arrest Interval history: Pt seen and examined awake but minimally responsive. Family at bedside who reports a night full of agitation receiving ativan at 2am. Objective - Vital Signs Vital signs: Vital Signs Temp Pulse Resp BP Pulse Ox 03/23/16 06:48 98.5 F 114 16 152/74 98 03/23/16 03:00 100.4 F H 127 16 172/82 95 03/22/16 22:54 99.4 F 103 16 134/70 97 03/22/16 18:53 99.4 F 90 16 149/82 100 03/22/16 17:06 126/70 03/22/16 15:48 98.4 F 111 22 203/89 95 Intake and Output 03/22/16 03/23/16 03/23/16 23:59 07:59 15:59 Intake Total 100 / 100 26.4 / 26.4 240 / 240 Output Total 425 / 425 0 / 0 Balance 100 / 100 -398.6 / -398.6 240 / 240 Intake: IV Fluids 100 / 100 26.4 / 26.4 0 / 0 Zosyn 3.375 GM In 100 / 100 26.4 / 26.4 0 / 0 Dextrose 5% (Minibag+) 100 ML 100 ML @ 25 mls/hr IVPB Q12H [facility] Rx#: [id number] Oral 240 / 240 Output: Urine 0 / 0 Catheter 425 / 425 Other: Meal Breakfast Percent of Meal Consumed 0% Weight 91.3 kg Blood Glucose* 185 188 Patient Weight 03/23/16 23:59 Weight 91.3 kg - General Appearance General appearance: Present: chronically ill (NAD) EENT: Present: ATNC, mucous membranes moist Neck: Present: no JVD, supple Respiratory: Present: clear Cardiology: Present: no edema, normal S1, normal S2 Dialysis Vascular Access: Venous Catheter Gastrointestinal: Present: no tenderness, no guarding Integumentary: Present: warm and dry Neurologic: Present: disoriented (minimally communicative) Musculoskeletal: Present: no deformities Psychiatric: Present: cooperative - Lab 03/25/16 12:23 03/25/16 12:15 Most recent lab results ABG pH 7.44 pH Units (7.32-7.45) 03/20/16 04:59 ABG pCO2 50 mmHg (35-45) H 03/20/16 04:59 ABG pO2 85 mmHg (85-104) 03/20/16 04:59 ABG HCO3 34.0 mEQ/L (21-27) H 03/20/16 04:59 ABG O2 Saturation 97 % (95-98) 03/20/16 04:59 Calcium 9.9 mg/dL (8.6-10.8) 03/23/16 03:00 Phosphorus 3.8 mg/dL (2.3-4.7) 03/22/16 03:30 Magnesium 1.8 mg/dL (1.6-2.6) 03/23/16 03:00 Consult Discharge Plan - Plan Referrals: NO,PCP [Non-Partnered Physician] -
--- NOTE | 2016-03-23 15:09 | Internal Med Progress Note ---
Date of Encounter: 03/23/16 Time of Encounter: 15:06 - Assessment and plan (1) Acute respiratory failure requiring reintubation Current Visit: Yes Status: Acute Assessment and plan: 2/2 PEA leading to cardiac arrest. extubated 28. mainatining sats on nasal cannula. will monitor and titrate o2 to maintain sats >95% (2) Dialysis AV fistula malfunction Current Visit: Yes Status: Acute Assessment and plan: has a temporary femoral catheter for HD. plan for fistulogram when more stable as per renal, plavix has been held. Qualifiers: Encounter type: initial encounter Qualified Code(s): T82.590A - Other mechanical complication of surgically created arteriovenous fistula, initial encounter (3) PEA (Pulseless electrical activity) Current Visit: Yes Status: Acute Assessment and plan: s/p cardiac arrest possible 2/2 severe hyperkalemic /CHF No further intervention per cardiology as patient had had a recent cardiac catheterization. (4) ESRD (end stage renal disease) on dialysis Current Visit: Yes Status: Chronic Assessment and plan: CVVHDF transitioned to intermittent hemodialysis. normal hemodialysis treatment today Serum potassium 4.1 today. Continue a renal protective strategy. (5) Hypertension Current Visit: Yes Status: Chronic Qualifiers: Hypertension type: essential hypertension Qualified Code(s): I10 - Essential (primary) hypertension (6) Hyperkalemia Current Visit: Yes Status: Resolved Assessment and plan: potassium stable at 4.1 today. (7) Altered mental state Current Visit: Yes Status: Acute Assessment and plan: will monitor him today. extubated 2 days ago and has not returned to baseline. avoid more ativan today and give haldol 1mg prn for agitation. aletered mental status may be 2/2 neurological sequelae post cardiac arrest. will get CT head today, follow with neurology consult. Qualifiers: Altered mental status type: unspecified Qualified Code(s): R41.82 - Altered mental status, unspecified - Time Spent With Patient 25 - 35 minutes - Subjective Interval history: Patient seen at the bedside, first encounter with the patient. [facility],extubated yesterday. s/p cardiac arrest for PEA most likely 2/2 severe hyperkalemia. sleeping and slightly arousable. later , he is able to open eyes, make incomprehensible sounds and squeeze fingers. however not at baseline compared before the arrest. - Constitutional Vitals: Temp Pulse Resp BP Pulse Ox 98.5 F 114 16 175/93 98 03/23/16 12:15 03/23/16 06:48 03/23/16 12:15 03/23/16 12:30 03/23/16 06:48 General appearance: Present: A&O X 0 (sedated and ventilated), obese Exam: HEENT: Normocephalic atraumatic, pupils are equal round and reactive to light and accommodation Cardiovascular: Regular rate and rhythm without murmur Respiratory: Lungs are clear to auscultation bilaterally, no wheezing, rhonchi, rales Abdomen: Soft, nontender, nondistended, positive bowel sounds in all 4 quadrants , urostomy bag in place Extremities: Warm, dry, no edema Neuro: unable to test as very drowsy and unable to follow commands. Internal Medicine: Result - Labs CBC & Chem 7: 03/23/16 03:00 03/23/16 03:00 Labs: Short CBC 03/23/16 Range/Units 03:00 WBC 11.8 H (4.3-11.1) K/mcL Hgb 9.3 L (12.9-16.9) g/dL Hct 28.7 L (37.5-50.1) % Plt Count 274 (140-400) K/mcL Neutrophils # 9.2 H (1.6-8.9) K/mcL BMP 03/23/16 03:00 Sodium 140 Potassium 4.1 Chloride 103 Carbon Dioxide 24 BUN 29 H Creatinine 6.40 H Glucose 122 H Calcium 9.9 Urine 03/23/16 Range/Units 06:10 Urine Color Yellow (Yellow) Urine Clarity Cloudy A (Clear) Urine pH 7.5 (5.0-8.0) pH Units Ur Specific [place]ctor 1.014 (1.010-1.025) Urine Protein >=300 H (Neg-Trace) mg/dL Urine Glucose (UA) Normal (Normal) mg/dL - ABG Interpretation ABG results: ABG ABG pH 7.44 pH Units (7.32-7.45) 03/20/16 04:59 ABG pCO2 50 mmHg (35-45) H 03/20/16 04:59 ABG pO2 85 mmHg (85-104) 03/20/16 04:59 ABG O2 Saturation 97 % (95-98) 03/20/16 04:59 PT/INR, D-dimer PT 12.3 Seconds (9.4-12.1) H 03/19/16 16:48 - Impressions Impressions Chest X-Ray 03/23/16 03:09 IMPRESSION: Stable appearance of the patchy parenchymal opacities at the lung bases which could represent atelectasis versus infiltrates. D/ / Luci Galaviz MD / Luci Galaviz MD Interpreting Provider: Luci Galaviz MD Consult Discharge Plan - Plan Referrals: NO,PCP [Non-Partnered Physician] -
[2016-03-23] MEDS: *HR* Metoprolol 5 MG/5 ML VIAL IVP PRN (21:56)
[2016-03-24] MEDS: Insulin LISPRO 300 UNITS/3 ML VIAL SQ SCH ×6 (00:20→21:08)
[2016-03-24] MEDS ORDERED: Haloperidol Lactate 5 MG/ML VIAL IVP ONE (03:29)
[2016-03-24] MEDS: *HR* Metoprolol 5 MG/5 ML VIAL IVP PRN (04:17)
[2016-03-24] MEDS: Pantoprazole 40 MG VIAL IVP SCH (08:58)
[2016-03-24] MEDS: Aspirin Enteric Coated 81 MG Tablet PO SCH (08:58)
[2016-03-24] MEDS: Levothyroxine 25 MCG TABLET PO SCH (08:58)
[2016-03-24] MEDS: *HR* Heparin 5,000 UNIT/ML VIAL SQ SCH ×2 (08:59→21:06)
[2016-03-24] MEDS: Insulin DETEMIR 100 UNIT/ML X5UNITS SQ SCH (09:07)
[2016-03-24 09:09] LABS: Basophils # 0.1 K/mcL (0.0-0.2); Eosinophils % 1.7 %; Mean Corpuscular Hemoglobin 31.5 pg (28.0-33.3); Red Cell Distribution Width 14.2 % (11.5-14.5)
[2016-03-24 09:17] LABS: Calcium 9.6 mg/dL (8.6-10.8); Potassium 4.6 mEq/L (3.5-4.5)
[2016-03-24 10:12] LABS: Basophils % 0.8 %; Eosinophils # 0.2 K/mcL (0.0-0.6); Immature Granulocytes % 0.8 % (0-4); Immature Platelets 3.4 % (1.1-6.1); Lymphocytes # 0.9 K/mcL (0.6-4.6); Monocytes # 1.1 K/mcL (0.0-1.3); Monocytes % 10.8 %; Neutrophils # 7.7 K/mcL (1.6-8.9); Segmented Neutrophils % 76.9 %
[2016-03-24 10:23] LABS: Hematocrit 26.8 % (37.5-50.1); Hemoglobin 8.7 g/dL (12.9-16.9); Red Blood Count 2.76 M/mcL (4.19-5.50)
[2016-03-24 10:24] LABS: Mean Corpuscular HGB Conc 32.5 g/dL (31.6-35.5); Mean Corpuscular Volume 97.1 fL (83.0-100.0); Platelet Count 347 K/mcL (140-400)
[2016-03-24 10:25] LABS: Mean Platelet Volume 9.7 fL (9.4-12.4)
--- NOTE | 2016-03-24 10:48 | Nephrology Progress Note ---
Date of Encounter: 03/24/16 Time of Encounter: 10:45 - Assessment and Plan (1) Altered mental state Current Visit: Yes Status: Acute Likely medication related vs delerium CT head unremarkable Qualifiers: Altered mental status type: unspecified Qualified Code(s): R41.82 - Altered mental status, unspecified (2) Dialysis AV fistula malfunction Current Visit: Yes Status: Acute will schedule fistulogram with IR on saturday Qualifiers: Encounter type: initial encounter Qualified Code(s): T82.590A - Other mechanical complication of surgically created arteriovenous fistula, initial encounter (3) ESRD (end stage renal disease) on dialysis Current Visit: Yes Status: Chronic next HD planned for saturday lytes stable Subjective Principal diagnosis: s/p cardiopulmonary arrest Interval history: Pt seen and examined resting comfortably. Sitter at bedside who reports another night of agitation. Haldol apparently did not work. Pt pulled out temp HD catheter 15mins towards the end of HD Objective - Vital Signs Vital signs: Vital Signs Temp Pulse Resp BP Pulse Ox 03/24/16 08:54 98 F 108 18 188/93 99 03/24/16 03:52 98.5 F 123 16 157/80 96 03/24/16 00:15 98.1 F 110 16 168/90 96 03/23/16 20:45 98.8 F 126 20 172/78 97 03/23/16 20:21 99.5 F 03/23/16 16:52 98.7 F 113 16 134/79 97 03/23/16 15:50 98.7 F 14 139/52 03/23/16 15:30 141/76 03/23/16 15:15 129/65 03/23/16 15:00 130/53 03/23/16 14:45 147/78 03/23/16 14:30 154/87 03/23/16 14:15 157/84 03/23/16 14:00 120/75 03/23/16 13:45 132/69 03/23/16 13:30 126/74 03/23/16 13:15 157/80 03/23/16 13:00 161/78 03/23/16 12:45 175/93 03/23/16 12:30 175/93 03/23/16 12:15 98.5 F 16 175/80 Intake and Output 03/23/16 03/24/16 03/24/16 23:59 07:59 15:59 Intake Total 100 / 100 440 / 440 240 / 240 Output Total 0 / 0 500 / 500 Balance 100 / 100 -60 / -60 240 / 240 Intake: IV Fluids 100 / 100 Zosyn 3.375 GM In 100 / 100 Dextrose 5% (Minibag+) 100 ML 100 ML @ 25 mls/hr IVPB Q12H [facility] Rx#: [id number] Oral 0 / 0 440 / 440 240 / 240 Output: Urine 0 / 0 Urostomy 500 / 500 Other: Meal Breakfast Percent of Meal Consumed 95% Stool Size Moderate Large Stool Consistency soft soft formed Stool Color Brown Weight 89.1 kg Blood Glucose* 245 113 187 Patient Weight 03/24/16 23:59 Weight 89.1 kg - General Appearance General appearance: Present: chronically ill (NAD) EENT: Present: ATNC, mucous membranes moist Neck: Present: no JVD, supple Respiratory: Present: clear Cardiology: Present: no edema, normal S1, normal S2 Dialysis Vascular Access: Venous Catheter Gastrointestinal: Present: no tenderness, no guarding Integumentary: Present: warm and dry Additional Comments: sleeping but arousable Musculoskeletal: Present: no deformities Additional Comments: sleeping but arousable - Lab 03/25/16 12:23 03/25/16 12:15 Most recent lab results ABG pH 7.44 pH Units (7.32-7.45) 03/20/16 04:59 ABG pCO2 50 mmHg (35-45) H 03/20/16 04:59 ABG pO2 85 mmHg (85-104) 03/20/16 04:59 ABG HCO3 34.0 mEQ/L (21-27) H 03/20/16 04:59 ABG O2 Saturation 97 % (95-98) 03/20/16 04:59 Calcium 9.6 mg/dL (8.6-10.8) 03/24/16 08:40 Phosphorus 3.8 mg/dL (2.3-4.7) 03/22/16 03:30 Magnesium 1.8 mg/dL (1.6-2.6) 03/23/16 03:00 Consult Discharge Plan - Plan Referrals: NO,PCP [Non-Partnered Physician] -
--- NOTE | 2016-03-24 14:22 | Internal Med Progress Note ---
Date of Encounter: 03/24/16 Time of Encounter: 14:20 - Assessment and plan (1) Acute respiratory failure requiring reintubation Current Visit: Yes Status: Acute Assessment and plan: 2/2 PEA leading to cardiac arrest. extubated 2. mainatining sats on nasal cannula. will monitor and titrate o2 to maintain sats >95% (2) Dialysis AV fistula malfunction Current Visit: Yes Status: Acute Assessment and plan: has a temporary femoral catheter for HD. plan for fistulogram possible on saturday, plavix has been held. Qualifiers: Encounter type: initial encounter Qualified Code(s): T82.590A - Other mechanical complication of surgically created arteriovenous fistula, initial encounter (3) PEA (Pulseless electrical activity) Current Visit: Yes Status: Acute Assessment and plan: s/p cardiac arrest possible 2/2 severe hyperkalemic /CHF No further intervention per cardiology as patient had had a recent cardiac catheterization. (4) ESRD (end stage renal disease) on dialysis Current Visit: Yes Status: Chronic Assessment and plan: CVVHDF transitioned to intermittent hemodialysis. normal hemodialysis treatment today Serum potassium 4.6 today. Continue a renal protective strategy, renal on board. (5) Hypertension Current Visit: Yes Status: Chronic Qualifiers: Hypertension type: essential hypertension Qualified Code(s): I10 - Essential (primary) hypertension (6) Hyperkalemia Current Visit: Yes Status: Resolved Assessment and plan: potassium stable at 4.6 today. (7) Altered mental state Current Visit: Yes Status: Acute Assessment and plan: will monitor him today. extubated 3 days ago and has not returned to baseline. avoid more ativan today and give haldol 1mg prn for agitation. mental status improved today, CT head with no acute pathology. Qualifiers: Altered mental status type: unspecified Qualified Code(s): R41.82 - Altered mental status, unspecified - Time Spent With Patient 25 - 35 minutes - Subjective Interval history: Patient seen at the bedside, Transferred from [facility] ,s/p cardiac arrest for PEA most likely 2/2 severe hyperkalemia. appears much better than yest. slightly slow to respond however no focal neuro defecits. CT head done yesterday does not show any acute pathology/ - Constitutional Vitals: Temp Pulse Resp BP Pulse Ox 97.4 F L 89 16 175/82 95 03/24/16 11:58 02/11/17 12:45 03/24/16 12:45 03/24/16 12:45 03/24/16 12:45 General appearance: Present: A&O X 2, no acute distress Exam: HEENT: Normocephalic atraumatic, pupils are equal round and reactive to light and accommodation Cardiovascular: Regular rate and rhythm without murmur Respiratory: Lungs are clear to auscultation bilaterally, no wheezing, rhonchi, rales Abdomen: Soft, nontender, nondistended, positive bowel sounds in all 4 quadrants , urostomy bag in place Extremities: Warm, dry, no edema Neuro: was able to follow commands, power normal all 4 ext. Internal Medicine: Result - Labs CBC & Chem 7: 03/24/16 08:40 03/24/16 08:40 Labs: Short CBC 03/24/16 Range/Units 08:40 WBC 10.0 (4.3-11.1) K/mcL Hgb 8.7 L (12.9-16.9) g/dL Hct 26.8 L (37.5-50.1) % Plt Count 347 (140-400) K/mcL Neutrophils # 7.7 (1.6-8.9) K/mcL BMP 03/24/16 08:40 Sodium 139 Potassium 4.6 H Chloride 103 Carbon Dioxide 21 BUN 29 H Creatinine 6.51 H Glucose 188 H Calcium 9.6 - ABG Interpretation ABG results: ABG ABG pH 7.44 pH Units (7.32-7.45) 03/20/16 04:59 ABG pCO2 50 mmHg (35-45) H 03/20/16 04:59 ABG pO2 85 mmHg (85-104) 03/20/16 04:59 ABG O2 Saturation 97 % (95-98) 03/20/16 04:59 PT/INR, D-dimer PT 12.3 Seconds (9.4-12.1) H 03/19/16 16:48 - Impressions Impressions Head CT 03/23/16 12:26 IMPRESSION: No acute intracranial abnormality. Findings compatible with age related atrophy and likely chronic small vessel ischemic change. D/ / Eber Alcantar MD / Eber Alcantar MD Interpreting Provider: Eber Alcantar MD Consult Discharge Plan - Plan Referrals: NO,PCP [Non-Partnered Physician] -
[2016-03-25] MEDS: Levothyroxine 25 MCG TABLET PO SCH (06:05)
[2016-03-25] MEDS: Aspirin Enteric Coated 81 MG Tablet PO SCH (08:00)
[2016-03-25] MEDS: *HR* Heparin 5,000 UNIT/ML VIAL SQ SCH ×2 (08:00→22:32)
[2016-03-25] MEDS: Pantoprazole 40 MG VIAL IVP SCH (08:01)
[2016-03-25] MEDS: Insulin DETEMIR 100 UNIT/ML X5UNITS SQ SCH (08:05)
[2016-03-25] MEDS: Insulin LISPRO 300 UNITS/3 ML VIAL SQ SCH ×7 (08:06→22:32)
[2016-03-25] MEDS ORDERED: Insulin DETEMIR 100 UNIT/ML X5UNITS SQ ONE (08:30)
[2016-03-25 12:26] LABS: Basophils % 0.5 %; Eosinophils # 0.2 K/mcL (0.0-0.6); Eosinophils % 2.6 %; Hematocrit 24.3 % (37.5-50.1); Immature Granulocytes % 0.9 % (0-4); Immature Platelets 3.8 % (1.1-6.1); Lymphocytes # 0.8 K/mcL (0.6-4.6); Mean Corpuscular HGB Conc 32.9 g/dL (31.6-35.5); Mean Corpuscular Volume 94.2 fL (83.0-100.0); Mean Platelet Volume 9.8 fL (9.4-12.4); Monocytes % 10.9 %; Neutrophils # 6.6 K/mcL (1.6-8.9); Platelet Count 374 K/mcL (140-400); Red Blood Count 2.58 M/mcL (4.19-5.50); Red Cell Distribution Width 13.6 % (11.5-14.5); Segmented Neutrophils % 76.1 %
[2016-03-25 12:38] LABS: Calcium 9.4 mg/dL (8.6-10.8)
--- NOTE | 2016-03-25 12:57 | Nephrology Progress Note ---
Date of Encounter: 03/25/16 Time of Encounter: 12:30 - Assessment and Plan (1) Altered mental state Current Visit: Yes Status: Acute Likely medication related vs delirium CT unremarkable Qualifiers: Altered mental status type: delirium Qualified Code(s): R41.0 - Disorientation, unspecified (2) Dialysis AV fistula malfunction Current Visit: Yes Status: Acute Fistulogram planned for saturday Will keep NPO after midnight with hope fistulogram will be done before HD tomorrow Qualifiers: Encounter type: initial encounter Qualified Code(s): T82.590A - Other mechanical complication of surgically created arteriovenous fistula, initial encounter (3) ESRD (end stage renal disease) on dialysis Current Visit: Yes Status: Chronic next HD planned for tomorrow after fistulogram lytes stable Subjective Principal diagnosis: s/p cardiopulmonary arrest Interval history: Pt seen and examined with family at bedside more awake and communicative but still disoriented. He thought we were in a limousine not a hospital. Still restless at nights. Objective - Vital Signs Vital signs: Vital Signs Temp Pulse Resp BP Pulse Ox 03/25/16 11:41 98.5 F 83 19 164/75 94 L 03/25/16 10:51 98.7 F 86 16 160/88 99 03/25/16 08:01 98.8 F 91 18 150/76 97 03/25/16 03:30 98.4 F 93 28 171/73 94 L 03/24/16 23:43 98.5 F 90 18 174/82 97 03/24/16 19:27 98.1 F 90 19 160/75 97 03/24/16 16:42 97.6 F 86 16 156/81 97 Intake and Output 03/24/16 03/25/16 03/25/16 23:59 07:59 15:59 Intake Total 520 / 520 0 / 0 Output Total 0 / 0 550 / 550 Balance 520 / 520 0 / 0 -550 / -550 Intake: Oral 520 / 520 0 / 0 Output: Urostomy 0 / 0 550 / 550 Other: Meal Dinner Percent of Meal Consumed 100% Stool Size Moderate Small Stool Consistency loose soft liquid formed Stool Color Brown Brown # Bowel Movements 2 1 Weight 90.2 kg Blood Glucose* 261 342 Patient Weight 03/25/16 23:59 Weight 90.2 kg - General Appearance General appearance: Present: chronically ill (NAD) EENT: Present: ATNC, mucous membranes moist Neck: Present: no JVD, supple Respiratory: Present: clear Cardiology: Present: no edema, normal S1, normal S2 Gastrointestinal: Present: no tenderness, no guarding Integumentary: Present: warm and dry Neurologic: Present: disoriented Musculoskeletal: Present: no deformities Psychiatric: Present: cooperative - Lab 03/26/16 04:00 03/26/16 04:00 Most recent lab results ABG pH 7.44 pH Units (7.32-7.45) 03/20/16 04:59 ABG pCO2 50 mmHg (35-45) H 03/20/16 04:59 ABG pO2 85 mmHg (85-104) 03/20/16 04:59 ABG HCO3 34.0 mEQ/L (21-27) H 03/20/16 04:59 ABG O2 Saturation 97 % (95-98) 03/20/16 04:59 Calcium 9.4 mg/dL (8.6-10.8) 03/25/16 12:15 Phosphorus 3.8 mg/dL (2.3-4.7) 03/22/16 03:30 Magnesium 1.8 mg/dL (1.6-2.6) 03/23/16 03:00 Consult Discharge Plan - Plan Referrals: NO,PCP [Non-Partnered Physician] - Jimi Santana MD [Primary Care Provider] -
--- NOTE | 2016-03-25 15:01 | Internal Med Progress Note ---
Date of Encounter: 03/25/16 Time of Encounter: 14:59 - Assessment and plan (1) Acute respiratory failure requiring reintubation Current Visit: Yes Status: Acute Assessment and plan: 2/2 PEA leading to cardiac arrest. extubated 2. mainatining sats on nasal cannula. will monitor and titrate o2 to maintain sats >95% (2) Dialysis AV fistula malfunction Current Visit: Yes Status: Acute Assessment and plan: has a temporary femoral catheter for HD. plan for fistulogram possible on saturday, plavix has been held. Qualifiers: Encounter type: initial encounter Qualified Code(s): T82.590A - Other mechanical complication of surgically created arteriovenous fistula, initial encounter (3) PEA (Pulseless electrical activity) Current Visit: Yes Status: Acute Assessment and plan: s/p cardiac arrest possible 2/2 severe hyperkalemic /CHF No further intervention per cardiology as patient had had a recent cardiac catheterization. (4) ESRD (end stage renal disease) on dialysis Current Visit: Yes Status: Chronic Assessment and plan: CVVHDF transitioned to intermittent hemodialysis. Continue a renal protective strategy, renal on board. seems more confused today, rise in BUN and creat, plan for HD tomm seen by renal/ (5) Hypertension Current Visit: Yes Status: Chronic Qualifiers: Hypertension type: essential hypertension Qualified Code(s): I10 - Essential (primary) hypertension (6) Hyperkalemia Current Visit: Yes Status: Resolved Assessment and plan: potassium stable at 4.0 today. (7) Altered mental state Current Visit: Yes Status: Acute Assessment and plan: will monitor him today. extubated 4 days ago , more alert than before but today sounds confused fsg>600 this morning, have adjusted insulin adn increased levemir dose CT head with no acute pathology. Qualifiers: Altered mental status type: unspecified Qualified Code(s): R41.82 - Altered mental status, unspecified - Time Spent With Patient 25 - 35 minutes - Subjective Interval history: Patient seen at the bedside, [facility] ,s/p cardiac arrest for PEA most likely 2/2 severe hyperkalemia. appears much better than yest. no focal neuro defecits, however seems confused today. CT head done does not show any acute pathology. - Constitutional Vitals: Temp Pulse Resp BP Pulse Ox 98.5 F 83 19 164/75 94 L 03/25/16 11:41 03/25/16 11:41 03/25/16 11:41 03/25/16 11:41 03/25/16 11:41 General appearance: Present: A&O X 2, no acute distress Exam: HEENT: Normocephalic atraumatic, pupils are equal round and reactive to light and accommodation Cardiovascular: Regular rate and rhythm without murmur Respiratory: Lungs are clear to auscultation bilaterally, no wheezing, rhonchi, rales Abdomen: Soft, nontender, nondistended, positive bowel sounds in all 4 quadrants , urostomy bag in place Extremities: Warm, dry, no edema Neuro: was able to follow commands, power normal all 4 ext. Internal Medicine: Result - Labs CBC & Chem 7: 03/25/16 12:23 03/25/16 12:15 Labs: Short CBC 03/25/16 Range/Units 12:23 WBC 8.7 (4.3-11.1) K/mcL Hgb 8.0 L (12.9-16.9) g/dL Hct 24.3 L (37.5-50.1) % Plt Count 374 (140-400) K/mcL Neutrophils # 6.6 (1.6-8.9) K/mcL BMP 03/25/16 12:15 Sodium 133 L Potassium 4.0 Chloride 100 Carbon Dioxide 21 BUN 50 H D Creatinine 8.38 H Glucose 275 H Calcium 9.4 - ABG Interpretation ABG results: ABG ABG pH 7.44 pH Units (7.32-7.45) 03/20/16 04:59 ABG pCO2 50 mmHg (35-45) H 03/20/16 04:59 ABG pO2 85 mmHg (85-104) 03/20/16 04:59 ABG O2 Saturation 97 % (95-98) 03/20/16 04:59 PT/INR, D-dimer PT 12.3 Seconds (9.4-12.1) H 03/19/16 16:48 Consult Discharge Plan - Plan Referrals: NO,PCP [Non-Partnered Physician] -
[2016-03-25] MEDS ORDERED: Insulin DETEMIR 100 UNIT/ML X5UNITS SQ SCH (21:00)
[2016-03-26 04:19] LABS: Basophils # 0.1 K/mcL (0.0-0.2); Basophils % 0.5 %; Eosinophils # 0.3 K/mcL (0.0-0.6); Eosinophils % 2.5 %; Hematocrit 23.7 % (37.5-50.1); Immature Granulocytes % 0.8 % (0-4); Lymphocytes % 9.8 %; Mean Corpuscular HGB Conc 33.8 g/dL (31.6-35.5); Mean Corpuscular Hemoglobin 31.5 pg (28.0-33.3); Mean Corpuscular Volume 93.3 fL (83.0-100.0); Monocytes % 9.5 %; Platelet Count 356 K/mcL (140-400); Red Blood Count 2.54 M/mcL (4.19-5.50); Red Cell Distribution Width 13.6 % (11.5-14.5); Segmented Neutrophils % 76.9 %
[2016-03-26 04:40] LABS: Calcium 8.8 mg/dL (8.6-10.8); Potassium 4.6 mEq/L (3.5-4.5)
[2016-03-26] MEDS: Aspirin Enteric Coated 81 MG Tablet PO SCH (06:28)
[2016-03-26] MEDS: Levothyroxine 25 MCG TABLET PO SCH (06:29)
[2016-03-26] MEDS: Insulin LISPRO 300 UNITS/3 ML VIAL SQ SCH ×7 (08:31→20:36)
[2016-03-26] MEDS: *HR* Heparin 5,000 UNIT/ML VIAL SQ SCH ×2 (08:38→20:42)
[2016-03-26] MEDS: Pantoprazole 40 MG VIAL IVP SCH (08:38)
[2016-03-26] MEDS ORDERED: *HR* Heparin 10,000 UNIT/10 ML VIAL IV PRN (08:52)
[2016-03-26] MEDS ORDERED: 0.9 % Sodium Chloride 250 ML IV PRN (08:52)
[2016-03-26] MEDS ORDERED: Insulin DETEMIR 100 UNIT/ML X5UNITS SQ SCH (09:00)
[2016-03-26] MEDS ORDERED: 0.9 % Sodium Chloride 2,000 ML ONE (09:17)
[2016-03-26] MEDS: Haloperidol Lactate 5 MG/ML VIAL IVP PRN ×2 (11:53→17:27)
--- NOTE | 2016-03-26 13:28 | Nephrology Progress Note ---
Date of Encounter: 03/26/16 Time of Encounter: 11:00 - Assessment and Plan (1) Altered mental state Current Visit: Yes Status: Acute Likely medication related vs delirium Will use haldol prn and give a dose prior to HD as patient did pull last HD catheter out on saturday Recommend starting seroquel for insonia which would help his mental status Qualifiers: Altered mental status type: delirium Qualified Code(s): R41.0 - Disorientation, unspecified (2) Dialysis AV fistula malfunction Current Visit: Yes Status: Acute will reschedule fistulogram with IR for tomorrow Qualifiers: Encounter type: initial encounter Qualified Code(s): T82.590A - Other mechanical complication of surgically created arteriovenous fistula, initial encounter (3) ESRD (end stage renal disease) on dialysis Current Visit: Yes Status: Chronic HD today with UF 2-3kg as tolerated lytes stable Subjective Principal diagnosis: s/p cardiopulmonary arrest Interval history: Pt seen and examined with at bedside. more awakw but still disoriented. per aid, patient did not sleep all night and in fact has not really slept in the past 3 nights. Temp HD line placed by IR as they are unable to have fistulogram done early enough for HD today. Objective - Vital Signs Vital signs: Vital Signs Temp Pulse Resp BP Pulse Ox 03/26/16 13:05 120/72 03/26/16 12:50 121/71 03/26/16 12:35 158/82 03/26/16 12:20 122/90 03/26/16 12:05 147/89 03/26/16 11:50 98.3 F 16 167/93 03/26/16 11:37 98.3 F 88 16 156/76 97 03/26/16 07:34 98 F 111 18 190/73 98 03/26/16 03:55 98.0 F 87 20 176/71 95 03/25/16 23:40 98.4 F 85 18 180/84 95 03/25/16 20:53 98 F 81 18 140/84 96 03/25/16 17:11 97.3 F L 82 18 135/81 99 Intake and Output 03/25/16 03/26/16 03/26/16 23:59 07:59 15:59 Intake Total 0 / 0 0 / 0 600 / 600 Output Total 500 / 500 Balance 0 / 0 -500 / -500 600 / 600 Intake: Oral 0 / 0 0 / 0 0 / 0 Intake, Rinseback and 600 / 600 Flushes Output: Catheter 500 / 500 Other: Meal npo Percent of Meal Consumed 0% Stool Size Small # Bowel Movements 1 Weight 92.1 kg Blood Glucose* 207 345 314 Hemodialysis Net Fluid 1278 Removed (mL) Patient Weight 03/26/16 23:59 Weight 92.1 kg - General Appearance General appearance: Present: chronically ill (NAD) EENT: Present: ATNC, mucous membranes moist Neck: Present: no JVD, supple Respiratory: Present: clear Cardiology: Present: no edema, normal S1, normal S2 Gastrointestinal: Present: no tenderness, no guarding Integumentary: Present: warm and dry Neurologic: Present: disoriented Musculoskeletal: Present: no deformities Psychiatric: Present: cooperative - Lab 03/26/16 04:00 03/26/16 04:00 Most recent lab results ABG pH 7.44 pH Units (7.32-7.45) 03/20/16 04:59 ABG pCO2 50 mmHg (35-45) H 03/20/16 04:59 ABG pO2 85 mmHg (85-104) 03/20/16 04:59 ABG HCO3 34.0 mEQ/L (21-27) H 03/20/16 04:59 ABG O2 Saturation 97 % (95-98) 03/20/16 04:59 Calcium 8.8 mg/dL (8.6-10.8) 03/26/16 04:00 Phosphorus 3.8 mg/dL (2.3-4.7) 03/22/16 03:30 Magnesium 1.8 mg/dL (1.6-2.6) 03/23/16 03:00 Consult Discharge Plan - Plan Referrals: NO,PCP [Non-Partnered Physician] - Jimi Santana MD [Primary Care Provider] -
--- NOTE | 2016-03-26 17:35 | Internal Med Progress Note ---
Date of Encounter: 03/26/16 Time of Encounter: 17:33 - Assessment and plan (1) Acute respiratory failure requiring reintubation Current Visit: Yes Status: Acute Assessment and plan: 2/2 PEA leading to cardiac arrest. extubated 2/8. mainatining sats on nasal cannula. will monitor and titrate o2 to maintain sats >95% (2) Dialysis AV fistula malfunction Current Visit: Yes Status: Acute Assessment and plan: Had a non-tunneled catheter placed in today. plan for fistulogram tomorrow, plavix has been held. Qualifiers: Encounter type: initial encounter Qualified Code(s): T82.590A - Other mechanical complication of surgically created arteriovenous fistula, initial encounter (3) PEA (Pulseless electrical activity) Current Visit: Yes Status: Acute Assessment and plan: s/p cardiac arrest possible 2/2 severe hyperkalemic /CHF No further intervention per cardiology as patient had had a recent cardiac catheterization. (4) ESRD (end stage renal disease) on dialysis Current Visit: Yes Status: Chronic Assessment and plan: CVVHDF transitioned to intermittent hemodialysis. Continue a renal protective strategy, renal on board. HD today. Follow renal recommendations. (5) Hypertension Current Visit: Yes Status: Chronic Qualifiers: Hypertension type: essential hypertension Qualified Code(s): I10 - Essential (primary) hypertension (6) Hyperkalemia Current Visit: Yes Status: Resolved Assessment and plan: potassium stable (7) Altered mental state Current Visit: Yes Status: Acute Assessment and plan: unclear stiology, could be ICU/hospital acquired psychosis or delirium. no other metabolic pathology other than on HD. CT head with no acute pathology. no fever or focal neuro defecits, has been on haldol but not much effective avoid benzos, will add seroquel today. urine cx growing VRE which most likely is a contaminant as he has no symptoms, no leucocytosis or fever and ua has no LE or nitrite positive have sent a repeat urine cx , will follow. start antibiotics if repeat cx is also positive. Qualifiers: Altered mental status type: unspecified Qualified Code(s): R41.82 - Altered mental status, unspecified - Subjective Interval history: Patient seen at the bedside, [facility] ,s/p cardiac arrest for PEA most likely 2/2 severe hyperkalemia. has improved compared to before but acting confused.no focal neuro defecits, CT head done does not show any acute pathology. - Constitutional Vitals: Temp Pulse Resp BP Pulse Ox 98.3 F 88 18 105/66 97 03/26/16 15:30 03/26/16 11:37 03/26/16 15:30 03/26/16 15:30 03/26/16 11:37 General appearance: Present: A&O X 2, no acute distress Exam: HEENT: Normocephalic atraumatic, pupils are equal round and reactive to light and accommodation Cardiovascular: Regular rate and rhythm without murmur Respiratory: Lungs are clear to auscultation bilaterally, no wheezing, rhonchi, rales Abdomen: Soft, nontender, nondistended, positive bowel sounds in all 4 quadrants , urostomy bag in place Extremities: Warm, dry, no edema Neuro: was able to follow commands, power normal all 4 ext. Internal Medicine: Result - Labs CBC & Chem 7: 03/26/16 04:00 03/26/16 04:00 Labs: Short CBC 03/26/16 Range/Units 04:00 WBC 10.4 (4.3-11.1) K/mcL Hgb 8.0 L (12.9-16.9) g/dL Hct 23.7 L (37.5-50.1) % Plt Count 356 (140-400) K/mcL Neutrophils # 8.0 (1.6-8.9) K/mcL BMP 03/26/16 04:00 Sodium 132 L Potassium 4.6 H Chloride 101 Carbon Dioxide 20 BUN 68 H D Creatinine 9.22 H Glucose 282 H Calcium 8.8 - ABG Interpretation ABG results: ABG ABG pH 7.44 pH Units (7.32-7.45) 03/20/16 04:59 ABG pCO2 50 mmHg (35-45) H 03/20/16 04:59 ABG pO2 85 mmHg (85-104) 03/20/16 04:59 ABG O2 Saturation 97 % (95-98) 03/20/16 04:59 PT/INR, D-dimer PT 12.3 Seconds (9.4-12.1) H 03/19/16 16:48 - Impressions Impressions Guidance Needle Placement Ultrasound 03/26/16 00:00 IMPRESSION: Ultrasound-guided placement of a right femoral temporary hemodialysis catheter as above. A postprocedure radiograph has confirmed appropriate positioning and the catheter is ready for immediate use. D/ / 03/26/2016 11:00:12 Surinder Fowler MD / bernie Interpreting Provider: Surinder Fowler MD Insertion Non-Tunneled Catheter 03/26/16 00:00 IMPRESSION: Ultrasound-guided placement of a right femoral temporary hemodialysis catheter as above. A postprocedure radiograph has confirmed appropriate positioning and the catheter is ready for immediate use. D/ / 03/26/2016 11:00:12 Surinder Fowler MD / bernie Interpreting Provider: Surinder Fowler MD X-Ray 03/26/16 09:56 IMPRESSION: A right femoral venous catheter is seen with its tip overlying the inferior vena cava. No evidence of bowel obstruction or pneumoperitoneum. D/ / Speedy Puentes MD / Speedy Puentes MD Interpreting Provider: Speedy Puentes MD Consult Discharge Plan - Plan Referrals: NO,PCP [Non-Partnered Physician] - Jimi Santana MD [Primary Care Provider] -
[2016-03-27] MEDS: Insulin DETEMIR 100 UNIT/ML X5UNITS SQ SCH (08:36)
[2016-03-27] MEDS: Insulin LISPRO 300 UNITS/3 ML VIAL SQ SCH ×7 (08:36→22:34)
--- NOTE | 2016-03-27 10:15 | Internal Med Progress Note ---
Date of Encounter: 03/27/16 Time of Encounter: 10:00 - Assessment and plan (1) Acute respiratory failure requiring reintubation Current Visit: Yes Status: Acute Assessment and plan: Improving. On 3 L nasal cannula. (2) Altered mental state Current Visit: Yes Status: Acute Assessment and plan: Improving. Patient is more awake and alert today. Started on Seroquel. Qualifiers: Altered mental status type: delirium Qualified Code(s): R41.0 - Disorientation, unspecified (3) Diabetes mellitus Current Visit: Yes Status: Acute Assessment and plan: Uncontrolled. On sliding scale insulin and Levemir. Will increase insulin regimen to control blood sugars better. 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 mellitus terminal operations supervisor insulin use: with terminal operations supervisor use Chronic kidney disease stage: on chronic dialysis Qualified Code(s): E11.22 - Type 2 diabetes mellitus with diabetic chronic kidney disease; N18.6 - End stage renal disease; Z79.4 - longterm (current) use of insulin; Z99.2 - Dependence on renal dialysis (4) Dialysis AV fistula malfunction Current Visit: Yes Status: Acute Assessment and plan: Fistulogram to be done today. Patient currently being dialyzed with her non- tunneled catheter Qualifiers: Encounter type: initial encounter Qualified Code(s): T82.590A - Other mechanical complication of surgically created arteriovenous fistula, initial encounter (5) PEA (Pulseless electrical activity) Current Visit: Yes Status: Resolved Assessment and plan: Due to hyperkalemia. (6) ESRD (end stage renal disease) on dialysis Current Visit: Yes Status: Chronic Assessment and plan: Awaiting fistulogram today. Nephrology following. (7) Hypertension Current Visit: Yes Status: Chronic Assessment and plan: Well-controlled Qualifiers: Hypertension type: essential hypertension Qualified Code(s): I10 - Essential (primary) hypertension (8) Cardiac arrest Current Visit: Yes Status: Resolved (9) Hyperkalemia Current Visit: Yes Status: Resolved (10) DVT prophylaxis Current Visit: Yes Status: Acute Assessment and plan: On heparin (11) Colonization with VRE (vancomycin-resistant enterococcus) Current Visit: Yes Status: Suspected Assessment and plan: Patient's urine culture positive for VRE. Repeat culture pending. If repeat culture also positive, will start treatment with Zyvox. - Subjective Interval history: Patient is feeling better today. Denies any new complaints at this time. No chest pain. No shortness of breath. No nausea or vomiting. No dizziness or lightheadedness. - Constitutional Vitals: Temp Pulse Resp BP Pulse Ox 98.4 F 94 16 109/65 96 03/27/16 07:54 03/27/16 07:54 03/27/16 07:54 03/27/16 07:54 03/27/16 07:54 General appearance: Present: cooperative, A&O X 2, no acute distress, answers questions appropriately - Respiratory Respiratory exam: Present: CTAB. Absent: accessory muscle use, rales, rhonchi, wheezes - Cardiovascular Cardiovascular exam: Present: RRR, +S1, +S2. Absent: diastolic murmur, gallop, rubs, systolic murmur - GI/Abdominal GI/Abdominal exam: Present: normal bowel sounds, soft, no peritoneal signs. Absent: distended, tenderness - Extremities Exam Extremities exam: Present: warm, radial pulses palpable and symetrical. Absent : calf tenderness, cyanotic, pedal edema - Neurological Exam Neurological exam: Present: alert, no focal deficits. Absent: facial droop, speech deficit - Skin Skin exam: Present: dry, intact Internal Medicine: Result - Labs CBC & Chem 7: 03/26/16 04:00 03/26/16 04:00 - ABG Interpretation ABG results: ABG ABG pH 7.44 pH Units (7.32-7.45) 03/20/16 04:59 ABG pCO2 50 mmHg (35-45) H 03/20/16 04:59 ABG pO2 85 mmHg (85-104) 03/20/16 04:59 ABG O2 Saturation 97 % (95-98) 03/20/16 04:59 PT/INR, D-dimer PT 12.3 Seconds (9.4-12.1) H 03/19/16 16:48 - Impressions Impressions Guidance Needle Placement Ultrasound 03/26/16 00:00 IMPRESSION: Ultrasound-guided placement of a right femoral temporary hemodialysis catheter as above. A postprocedure radiograph has confirmed appropriate positioning and the catheter is ready for immediate use. D/ / 03/26/2016 11:00:12 Surinder Fowler MD / bernie Interpreting Provider: Surinder Fowler MD Insertion Non-Tunneled Catheter 03/26/16 00:00 IMPRESSION: Ultrasound-guided placement of a right femoral temporary hemodialysis catheter as above. A postprocedure radiograph has confirmed appropriate positioning and the catheter is ready for immediate use. D/ / 03/26/2016 11:00:12 Surinder Fowler MD / bernie Interpreting Provider: Surinder Fowler MD X-Ray 03/26/16 09:56 IMPRESSION: A right femoral venous catheter is seen with its tip overlying the inferior vena cava. No evidence of bowel obstruction or pneumoperitoneum. D/ / Speedy Puentes MD / Speedy Puentes MD Interpreting Provider: Speedy Puentes MD Consult Discharge Plan - Plan Referrals: NO,PCP [Non-Partnered Physician] - Jimi Santana MD [Primary Care Provider] - - Attending Attestation This document has been at least partially created by [employer] recognition technology by Dr. Mays. Errors in grammar, wording or other phrases may exist. If errors are found after the documentation is signed, they will be addressed individually in the addendum section of this document when appropriate.
[2016-03-27] MEDS ORDERED: 0.9 % Sodium Chloride 500 ML ONE (10:59)
[2016-03-27] MEDS ORDERED: Heparin 1,000 UNITS/500 mL NS 500 ML ONE ×2 (10:59→13:32)
[2016-03-27] MEDS ORDERED: *HR* Midazolam HCl 2 MG/2 ML VIAL IVP PRN (12:12)
[2016-03-27] MEDS ORDERED: *HR* FentaNYL (PF) 100 MCG/2 ML VIAL IVP PRN (12:13)
[2016-03-27] MEDS ORDERED: *HR* Heparin 5,000 UNIT/ML VIAL ONE (12:45)
[2016-03-27] MEDS ORDERED: ceFAZolin 1,000 MG in D5% in Water (Mini-Bag+) 100 ML IVPB ONE (13:01)
[2016-03-27] MEDS: *HR* Heparin 5,000 UNIT/ML VIAL SQ SCH ×2 (14:34→22:39)
[2016-03-27] MEDS: Aspirin Enteric Coated 81 MG Tablet PO SCH (14:36)
[2016-03-27] MEDS: Levothyroxine 25 MCG TABLET PO SCH (14:36)
--- NOTE | 2016-03-27 14:36 | IR Procedure Note ---
Date of procedure: 03/27/16 Consent Obtained: Verbal consent Timeout: Correct patient and procedure verified, Correct site verified, Time out performed, Skin prep completed Local anesthetic: Lidocaine 1% Indications: Clotted B-C fistula, recurrent Procedure Performed: Fistulagram, stent placement, thrombectomy Site/Technique: Left upper arm Results/Findings: Mechanical thrombectomy,2 stents in outflow cephalic vein centrally Estimated blood loss (cc): 4 Complications: None; Tolerated procedure well Post Procedure Treatment Plan: Monitoring in pts room.
[2016-03-27] MEDS: Haloperidol Lactate 5 MG/ML VIAL IVP PRN (14:38)
--- NOTE | 2016-03-27 22:32 | Nephrology Progress Note ---
Date of Encounter: 03/27/16 Time of Encounter: 12:00 - Assessment and Plan (1) Altered mental state Current Visit: Yes Status: Acute Likely medication related vs delrium, improving after seroquel started for nighttime, will continue Haldol prn Qualifiers: Altered mental status type: delirium Qualified Code(s): R41.0 - Disorientation, unspecified (2) Dialysis AV fistula malfunction Current Visit: Yes Status: Acute Fistulogram today, hopefully should be ready fro use tomorrow Qualifiers: Encounter type: initial encounter Qualified Code(s): T82.590A - Other mechanical complication of surgically created arteriovenous fistula, initial encounter (3) ESRD (end stage renal disease) on dialysis Current Visit: Yes Status: Chronic next HD planned for tomorrow with fistulogram hopefully if fistulogram successful lytes stable Subjective Principal diagnosis: s/p cardiopulmonary arrest Interval history: Pt seen and examined more awake today after sleeping better with seroquel. HD done yesterday via temp HD catheter line, fistulogram pending today Objective - Vital Signs Vital signs: Vital Signs Temp Pulse Resp BP Pulse Ox 03/27/16 19:27 98.1 F 85 18 151/76 97 03/27/16 14:37 97.8 F 61 16 148/80 95 03/27/16 13:49 98 20 190/87 100 03/27/16 13:39 97 20 173/91 100 03/27/16 13:26 95 20 191/102 100 03/27/16 13:17 95 20 204/110 97 03/27/16 13:11 89 23 200/125 98 03/27/16 13:06 92 20 200/102 98 03/27/16 12:59 92 25 213/115 98 03/27/16 12:46 95 23 186/104 97 03/27/16 12:41 91 22 201/107 100 03/27/16 12:36 95 19 185/111 100 03/27/16 12:31 92 22 208/96 100 03/27/16 12:26 91 25 207/113 100 03/27/16 12:21 93 20 198/110 100 03/27/16 12:18 86 19 204/102 100 03/27/16 12:11 95 18 185/111 100 03/27/16 07:54 98.4 F 94 16 109/65 96 02/14/17 04:39 97.8 F 51 16 125/67 93 L 03/27/16 00:22 98.0 F 76 16 146/69 92 L Intake and Output 03/27/16 03/27/16 03/27/16 07:59 15:59 23:59 Intake Total 0 / 0 300 / 300 Balance 0 / 0 300 / 300 Intake: IV Fluids 300 / 300 Zyvox 600mg/300mL 600 mg 300 / 300 In 300 ml @ 150 mls/hr IVPB Q12HR PRINCE Rx#: [id number] Oral 0 / 0 Other: Percent of Meal Consumed 0% Weight 92 kg Blood Glucose* 271 136 69 Patient Weight 03/27/16 23:59 Weight 92 kg - General Appearance General appearance: Present: chronically ill (NAD) EENT: Present: ATNC, mucous membranes moist Neck: Present: no JVD, supple Respiratory: Present: clear Cardiology: Present: no edema, normal S1, normal S2 Dialysis Vascular Access: Venous Catheter (temp HD catheter) Neurologic: Present: disoriented Musculoskeletal: Present: no deformities Psychiatric: Present: mood/affect appropriate - Lab 03/26/16 04:00 03/26/16 04:00 Most recent lab results ABG pH 7.44 pH Units (7.32-7.45) 03/20/16 04:59 ABG pCO2 50 mmHg (35-45) H 03/20/16 04:59 ABG pO2 85 mmHg (85-104) 03/20/16 04:59 ABG HCO3 34.0 mEQ/L (21-27) H 03/20/16 04:59 ABG O2 Saturation 97 % (95-98) 03/20/16 04:59 Calcium 8.8 mg/dL (8.6-10.8) 03/26/16 04:00 Phosphorus 3.8 mg/dL (2.3-4.7) 03/22/16 03:30 Magnesium 1.8 mg/dL (1.6-2.6) 03/23/16 03:00 Consult Discharge Plan - Plan Referrals: NO,PCP [Non-Partnered Physician] - Jimi Santana MD [Primary Care Provider] -
[2016-03-28] MEDS: Haloperidol Lactate 5 MG/ML VIAL IVP PRN ×2 (01:08→09:07)
[2016-03-28 07:05] LABS: Basophils # 0.1 K/mcL (0.0-0.2); Basophils % 0.7 %; Eosinophils # 0.1 K/mcL (0.0-0.6); Eosinophils % 1.6 %; Hematocrit 24.6 % (37.5-50.1); Hemoglobin 8.3 g/dL (12.9-16.9); Immature Granulocytes % 1.1 % (0-4); Lymphocytes # 0.9 K/mcL (0.6-4.6); Lymphocytes % 11.4 %; Mean Corpuscular HGB Conc 33.7 g/dL (31.6-35.5); Mean Corpuscular Hemoglobin 31.4 pg (28.0-33.3); Mean Corpuscular Volume 93.2 fL (83.0-100.0); Mean Platelet Volume 10.8 fL (9.4-12.4); Monocytes # 1.1 K/mcL (0.0-1.3); Monocytes % 12.8 %; Platelet Count 431 K/mcL (140-400); Red Blood Count 2.64 M/mcL (4.19-5.50); Red Cell Distribution Width 14.1 % (11.5-14.5); Segmented Neutrophils % 72.4 %
[2016-03-28 07:13] LABS: Calcium 8.8 mg/dL (8.6-10.8); Potassium 4.5 mEq/L (3.5-4.5)
[2016-03-28] MEDS: Insulin LISPRO 300 UNITS/3 ML VIAL SQ SCH ×7 (07:38→22:42)
[2016-03-28] MEDS: Levothyroxine 25 MCG TABLET PO SCH (07:42)
[2016-03-28] MEDS ORDERED: 0.9 % Sodium Chloride 250 ML IV PRN (09:04)
[2016-03-28] MEDS: Aspirin Enteric Coated 81 MG Tablet PO SCH (09:08)
[2016-03-28] MEDS: Insulin DETEMIR 100 UNIT/ML X5UNITS SQ SCH (09:08)
[2016-03-28] MEDS: *HR* Heparin 5,000 UNIT/ML VIAL SQ SCH ×2 (09:08→22:43)
--- NOTE | 2016-03-28 11:35 | Nephrology Progress Note ---
Date of Encounter: 03/28/16 Time of Encounter: 10:30 - Assessment and Plan (1) Altered mental state Current Visit: Yes Status: Acute Likely medication related vs delirium CT unremarkable Qualifiers: Altered mental status type: delirium Qualified Code(s): R41.0 - Disorientation, unspecified (2) Dialysis AV fistula malfunction Current Visit: Yes Status: Acute Successful fistulogram with angioplasty and stent placement x 2 Qualifiers: Encounter type: initial encounter Qualified Code(s): T82.590A - Other mechanical complication of surgically created arteriovenous fistula, initial encounter (3) ESRD (end stage renal disease) on dialysis Current Visit: Yes Status: Chronic Continue HD with UF as tolerated lytes stable Subjective Principal diagnosis: s/p cardiopulmonary arrest Interval history: Pt seen and examined on HD after success fistulogram yesterday with angioplasty and 2 stents placed. Fistula now cannulated for HD. Pt remains confused requiring 1:1 monitoring. Objective - Vital Signs Vital signs: Vital Signs Temp Pulse Resp BP Pulse Ox 03/28/16 11:20 87/51 03/28/16 11:05 87/51 03/28/16 10:50 86/40 03/28/16 10:35 134/64 03/28/16 10:25 89 17 140/87 03/28/16 10:20 140/84 03/28/16 10:05 97.6 F 18 140/87 03/28/16 10:00 97.6 F 17 132/76 03/28/16 07:55 98 F 87 18 194/78 92 L 03/28/16 06:10 98.4 F 88 20 179/84 100 03/28/16 06:07 98.4 F 90 20 179/84 100 03/28/16 05:00 98.8 F 90 22 177/79 98 03/28/16 04:01 98.5 F 88 20 173/79 93 L 03/28/16 04:00 98.5 F 98 24 173/79 92 L 03/28/16 03:45 98.5 F 98 24 173/79 92 L 03/27/16 19:27 98.1 F 85 18 151/76 97 03/27/16 14:37 97.8 F 61 16 148/80 95 03/27/16 13:49 98 20 190/87 100 03/27/16 13:39 97 20 173/91 100 03/27/16 13:26 95 20 191/102 100 03/27/16 13:17 95 20 204/110 97 03/27/16 13:11 89 23 200/125 98 03/27/16 13:06 92 20 200/102 98 03/27/16 12:59 92 25 213/115 98 03/27/16 12:46 95 23 186/104 97 03/27/16 12:41 91 22 201/107 100 03/27/16 12:36 95 19 185/111 100 03/27/16 12:31 92 22 208/96 100 03/27/16 12:26 91 25 207/113 100 03/27/16 12:21 93 20 198/110 100 03/27/16 12:18 86 19 204/102 100 03/27/16 12:11 95 18 185/111 100 Intake and Output 03/27/16 03/28/16 03/28/16 23:59 07:59 15:59 Intake Total 300 / 300 1320 / 1320 Output Total 300 / 300 Balance 300 / 300 -300 / -300 1320 / 1320 Intake: IV Fluids 300 / 300 Zyvox 600mg/300mL 600 mg 300 / 300 In 300 ml @ 150 mls/hr IVPB Q12HR PRINCE Rx#: [id number] Oral 120 / 120 Intake, Rinseback and 1200 / 1200 Flushes Output: Urostomy 300 / 300 Other: Meal Breakfast Percent of Meal Consumed 90% Stool Size Moderate Stool Consistency loose Stool Color Brown # Bowel Movements 2 Weight 84.4 kg 84.9 kg Blood Glucose* 366 568 174 Hemodialysis Net Fluid 1230 Removed (mL) Patient Weight 03/28/16 23:59 Weight 84.9 kg - General Appearance General appearance: Present: chronically ill (NAD) EENT: Present: ATNC, mucous membranes moist Neck: Present: no JVD, supple Respiratory: Present: clear (ant bilat) Cardiology: Present: no edema, normal S1, normal S2 Dialysis Vascular Access: Arteriovenous Fistula Gastrointestinal: Present: no tenderness, no guarding Integumentary: Present: warm and dry Neurologic: Present: confused Musculoskeletal: Present: no deformities Psychiatric: Present: mood/affect appropriate, cooperative - Lab 03/28/16 06:41 03/29/16 11:03 Most recent lab results ABG pH 7.44 pH Units (7.32-7.45) 03/20/16 04:59 ABG pCO2 50 mmHg (35-45) H 03/20/16 04:59 ABG pO2 85 mmHg (85-104) 03/20/16 04:59 ABG HCO3 34.0 mEQ/L (21-27) H 03/20/16 04:59 ABG O2 Saturation 97 % (95-98) 03/20/16 04:59 Calcium 8.8 mg/dL (8.6-10.8) 03/28/16 06:41 Phosphorus 3.8 mg/dL (2.3-4.7) 03/22/16 03:30 Magnesium 1.8 mg/dL (1.6-2.6) 03/23/16 03:00 Consult Discharge Plan - Plan Referrals: Jimi Santana MD [Primary Care Provider] - (patient will follow [facility] if [facility] decides to go to [facility] )
--- NOTE | 2016-03-28 13:31 | Internal Med Progress Note ---
Date of Encounter: 03/28/16 Time of Encounter: 10:15 - Assessment and plan (1) Altered mental state Current Visit: Yes Status: Acute Assessment and plan: Intermittent delirium. On Seroquel. Continue current dosage. Minimize interventions. Likely due to underlying dementia. Qualifiers: Altered mental status type: delirium Qualified Code(s): R41.0 - Disorientation, unspecified (2) Acute respiratory failure requiring reintubation Current Visit: Yes Status: Resolved Assessment and plan: Acute respiratory failure is resolved. Patient is clinically getting better. (3) Diabetes mellitus Current Visit: Yes Status: Acute Assessment and plan: Blood sugars severely elevated this morning. Blood sugars were normal yesterday evening and he did not receive sliding scale coverage last night. Blood sugars have improved since then. We will continue to monitor. Continue current insulin regimen. 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 mellitus director long term care insulin use: with director long term care use Chronic kidney disease stage: on chronic dialysis Qualified Code(s): E11.22 - Type 2 diabetes mellitus with diabetic chronic kidney disease; N18.6 - End stage renal disease; Z79.4 - [facility] (current) use of insulin; Z99.2 - Dependence on renal dialysis (4) Dialysis AV fistula malfunction Current Visit: Yes Status: Acute Assessment and plan: Patient underwent fistulogram and stent placement for thrombectomy yesterday. AV fistula is functioning well and patient was dialyzed this morning through it Qualifiers: Encounter type: initial encounter Qualified Code(s): T82.590A - Other mechanical complication of surgically created arteriovenous fistula, initial encounter (5) PEA (Pulseless electrical activity) Current Visit: Yes Status: Resolved (6) ESRD (end stage renal disease) on dialysis Current Visit: Yes Status: Chronic Assessment and plan: Continue dialysis management per nephrology recommendations (7) Hypertension Current Visit: Yes Status: Chronic Assessment and plan: Well-controlled Qualifiers: Hypertension type: essential hypertension Qualified Code(s): I10 - Essential (primary) hypertension (8) Cardiac arrest Current Visit: Yes Status: Resolved (9) Hyperkalemia Current Visit: Yes Status: Resolved (10) DVT prophylaxis Current Visit: Yes Status: Acute (11) Colonization with VRE (vancomycin-resistant enterococcus) Current Visit: No Status: Ruled-out (12) UTI (urinary tract infection) due to Enterococcus Current Visit: Yes Status: Acute Assessment and plan: Due to vancomycin-resistant enterococcus. On Zyvox. Moderate risk for complications. - Subjective Interval history: Patient currently in dialysis. Remains disoriented. Denies any pain. No nausea or vomiting. Tolerating diet well. No new complaints at this time. - Constitutional Vitals: Temp Pulse Resp BP Pulse Ox 97.6 F 87 17 101/68 92 L 03/28/16 10:05 03/28/16 13:19 03/28/16 13:19 03/28/16 13:19 03/28/16 07:55 General appearance: Present: cooperative, A&O X 2, no acute distress, answers questions appropriately - Respiratory Respiratory exam: Present: CTAB. Absent: accessory muscle use, rales, rhonchi, wheezes - Cardiovascular Cardiovascular exam: Present: RRR, +S1, +S2. Absent: diastolic murmur, gallop, rubs, systolic murmur - GI/Abdominal GI/Abdominal exam: Present: normal bowel sounds, soft, no peritoneal signs. Absent: distended, tenderness - Extremities Exam Extremities exam: Present: warm, radial pulses palpable and symetrical. Absent : calf tenderness, cyanotic, pedal edema - Neurological Exam Neurological exam: Present: alert, no focal deficits. Absent: facial droop, speech deficit Internal Medicine: Result - Labs CBC & Chem 7: 03/28/16 06:41 03/28/16 06:41 Labs: Short CBC 03/28/16 Range/Units 06:41 WBC 8.3 (4.3-11.1) K/mcL Hgb 8.3 L (12.9-16.9) g/dL Hct 24.6 L (37.5-50.1) % Plt Count 431 H (140-400) K/mcL Neutrophils # 6.0 (1.6-8.9) K/mcL BMP 03/28/16 06:41 Sodium 128 L Potassium 4.5 Chloride 94 L Carbon Dioxide 18 L BUN 54 H Creatinine 9.03 H Glucose 569 H* Calcium 8.8 - ABG Interpretation ABG results: ABG ABG pH 7.44 pH Units (7.32-7.45) 03/20/16 04:59 ABG pCO2 50 mmHg (35-45) H 03/20/16 04:59 ABG pO2 85 mmHg (85-104) 03/20/16 04:59 ABG O2 Saturation 97 % (95-98) 03/20/16 04:59 PT/INR, D-dimer PT 12.3 Seconds (9.4-12.1) H 03/19/16 16:48 - Impressions Impressions AV Shunt Angiogram 03/27/16 00:00 IMPRESSION: Severe area of stenosis in the outflow cephalic vein in the upper arm, with a 2nd area of stenosis adjacent to the initial stent placement, with two separate overlapping stents used. There is improved flow seen following stent placement, as well as mechanical thrombectomy and angioplasty of the cephalic arch. D/ / 03/27/2016 16:24:13 Panchito Arteaga MD / tobi Interpreting Provider: Panchito Arteaga MD Guidance Needle Placement Ultrasound 03/27/16 00:00 IMPRESSION: Severe area of stenosis in the outflow cephalic vein in the upper arm, with a 2nd area of stenosis adjacent to the initial stent placement, with two separate overlapping stents used. There is improved flow seen following stent placement, as well as mechanical thrombectomy and angioplasty of the cephalic arch. D/ / 03/27/2016 16:24:13 Panchito Arteaga MD / tobi Interpreting Provider: Panchito Arteaga MD MANAGER SHOP, Venous 03/27/16 00:00 IMPRESSION: Severe area of stenosis in the outflow cephalic vein in the upper arm, with a 2nd area of stenosis adjacent to the initial stent placement, with two separate overlapping stents used. There is improved flow seen following stent placement, as well as mechanical thrombectomy and angioplasty of the cephalic arch. D/ / 03/27/2016 16:24:13 Panchito Arteaga MD / tobi Interpreting Provider: Panchito Arteaga MD Thrombolysis 03/27/16 00:00 IMPRESSION: Severe area of stenosis in the outflow cephalic vein in the upper arm, with a 2nd area of stenosis adjacent to the initial stent placement, with two separate overlapping stents used. There is improved flow seen following stent placement, as well as mechanical thrombectomy and angioplasty of the cephalic arch. D/ / 03/27/2016 16:24:13 Panchito Arteaga MD / [email or web address] Interpreting Provider: Panchito Arteaga MD Consult Discharge Plan - Plan Referrals: Jimi Santana MD [Primary Care Provider] - ([facility] will [facility] if [facility] decides to go to [facility] ) - Attending Attestation This document has been at least partially created by [employer] recognition technology by Dr. Mays. Errors in grammar, wording or other phrases may exist. If errors are found after the documentation is signed, they will be addressed individually in the addendum section of this document when appropriate.
[2016-03-28] MEDS: Linezolid 600 MG TABLET PO SCH ×2 (15:54→22:46)
[2016-03-28] MEDS ORDERED: Linezolid 600 MG TABLET PO SCH (21:00)
[2016-03-29] MEDS ORDERED: traZODone 50 MG TABLET PO SCH (01:00)
[2016-03-29] MEDS ORDERED: Melatonin 3 MG TABLET PO SCH (01:00)
[2016-03-29] MEDS: Levothyroxine 25 MCG TABLET PO SCH (06:02)
[2016-03-29] MEDS ORDERED: *HR* LORazepam 2 MG/ML VIAL IVP PRN (06:40)
[2016-03-29] MEDS: Folic Acid 1 MG TABLET PO SCH (08:01)
[2016-03-29] MEDS: Linezolid 600 MG TABLET PO SCH ×2 (08:01→21:06)
[2016-03-29] MEDS: Aspirin Enteric Coated 81 MG Tablet PO SCH (08:02)
[2016-03-29] MEDS: Insulin DETEMIR 100 UNIT/ML X5UNITS SQ SCH (08:02)
[2016-03-29] MEDS: Insulin LISPRO 300 UNITS/3 ML VIAL SQ SCH ×5 (08:02→21:38)
[2016-03-29] MEDS: *HR* Heparin 5,000 UNIT/ML VIAL SQ SCH ×2 (08:02→21:07)
[2016-03-29] MEDS ORDERED: Thiamine (B-1) 100 MG in D5% in Water 50 ML IVPB SCH (09:00)
[2016-03-29] MEDS ORDERED: Divalproex (12 HR) 250 MG TABLET PO SCH (09:00)
[2016-03-29] MEDS ORDERED: Vitamin B Complex/Vit C/Vit E 1 EACH TABLET PO SCH (09:00)
--- NOTE | 2016-03-29 10:47 | Nephrology Progress Note ---
<Sharri Wolff - Last Filed: 03/29/16 10:53> Date of Encounter: 03/29/16 Time of Encounter: 10:47 - Assessment and Plan (1) Altered mental state Current Visit: Yes Status: Acute Patient continues to be confused is interested in having patient placed in ECF at discharge Qualifiers: Altered mental status type: delirium Qualified Code(s): R41.0 - Disorientation, unspecified (2) Dialysis AV fistula malfunction Current Visit: Yes Status: Acute Fistulogram done and stent placed Used access yesterday for HD without any problems Qualifiers: Encounter type: initial encounter Qualified Code(s): T82.590A - Other mechanical complication of surgically created arteriovenous fistula, initial encounter (3) ESRD (end stage renal disease) on dialysis Current Visit: Yes Status: Chronic Plan for HD tomorrow Avoid nephrotoxins if possible Subjective Principal diagnosis: s/p cardiopulmonary arrest Interval history: Patient seen and examined. at bedside. Patient talking but very confused Objective - Vital Signs Vital signs: Vital Signs Temp Pulse Resp BP Pulse Ox 03/29/16 07:29 97.6 F 96 18 174/65 90 L 03/29/16 04:06 97.8 F 96 16 148/72 98 03/29/16 01:00 97.7 F 93 16 116/59 96 03/28/16 20:24 98.0 F 76 16 126/67 96 03/28/16 17:00 98.1 F 84 16 106/62 95 03/28/16 14:46 20 101/63 03/28/16 13:19 87 17 101/68 03/28/16 12:35 100/71 03/28/16 12:25 101/63 03/28/16 12:10 86/53 03/28/16 11:50 63/45 03/28/16 11:35 101/63 03/28/16 11:20 87/51 03/28/16 11:05 87/51 03/28/16 10:50 86/40 Intake and Output 03/28/16 03/29/16 03/29/16 23:59 07:59 15:59 Intake Total 240 / 240 300 / 300 340 / 340 Balance 240 / 240 300 / 300 340 / 340 Intake: Oral 240 / 240 0 / 0 340 / 340 Free Water 300 / 300 Other: Meal goldfish and applesauce sherbert Breakfast Percent of Meal Consumed 100% 100% Stool Size Small Large Stool Consistency soft liquid Stool Color Brown Brown # Bowel Movements 1 # Bowel Movement Diapers 2 Weight 86.1 kg Blood Glucose* 133 [id number] 442 Patient Weight 03/29/16 23:59 Weight 86.1 kg - General Appearance General appearance: Present: well-developed, well-nourished EENT: Present: ATNC, mucous membranes moist, hearing intact, vision intact Neck: Present: supple Respiratory: Present: clear Cardiology: Present: no edema, normal S1, normal S2 Dialysis Vascular Access: Arteriovenous Fistula Gastrointestinal: Present: no guarding Integumentary: Present: warm and dry Neurologic: Present: confused Psychiatric: Present: cooperative - Lab 03/28/16 06:41 03/28/16 06:41 Most recent lab results ABG pH 7.44 pH Units (7.32-7.45) 03/20/16 04:59 ABG pCO2 50 mmHg (35-45) H 03/20/16 04:59 ABG pO2 85 mmHg (85-104) 03/20/16 04:59 ABG HCO3 34.0 mEQ/L (21-27) H 03/20/16 04:59 ABG O2 Saturation 97 % (95-98) 03/20/16 04:59 Calcium 8.8 mg/dL (8.6-10.8) 03/28/16 06:41 Phosphorus 3.8 mg/dL (2.3-4.7) 03/22/16 03:30 Magnesium 1.8 mg/dL (1.6-2.6) 03/23/16 03:00 Consult Discharge Plan - Plan Referrals: Jimi Santana MD [Primary Care Provider] - (patient will follow up ecf pcp if patient decides to go to ecf ) <Johnnie Grimaldo - Last Filed: 03/29/16 23:30> - Assessment and Plan (1) Altered mental state Current Visit: Yes Status: Acute Qualifiers: Altered mental status type: delirium Qualified Code(s): R41.0 - Disorientation, unspecified (2) Dialysis AV fistula malfunction Current Visit: Yes Status: Acute Qualifiers: Encounter type: initial encounter Qualified Code(s): T82.590A - Other mechanical complication of surgically created arteriovenous fistula, initial encounter (3) ESRD (end stage renal disease) on dialysis Current Visit: Yes Status: Chronic Objective - Vital Signs Vital signs: Vital Signs Temp Pulse Resp BP Pulse Ox 03/29/16 20:27 98.2 F 81 16 164/76 96 03/29/16 16:14 97.3 F L 80 18 128/62 91 L 03/29/16 12:05 97.8 F 94 18 128/49 95 03/29/16 07:29 97.6 F 96 18 174/65 90 L 03/29/16 04:06 97.8 F 96 16 148/72 98 03/29/16 01:00 97.7 F 93 16 116/59 96 Intake and Output 03/29/16 03/29/16 03/29/16 07:59 15:59 23:59 Intake Total 300 / 300 580 / 580 Output Total Balance 300 / 300 579 / 579 Intake: Oral 0 / 0 580 / 580 Free Water 300 / 300 Output: Stool Other: Meal sherbert Lunch Percent of Meal Consumed 100% Stool Size Large Small Copious Stool Consistency liquid loose liquid Stool Color Brown Brown # Bowel Movements 1 1 # Bowel Movement Diapers 2 2 1 Weight 86.1 kg Blood Glucose* 417 147 151 Patient Weight 03/29/16 23:59 Weight 86.1 kg - Lab 03/28/16 06:41 03/29/16 11:03 Most recent lab results ABG pH 7.44 pH Units (7.32-7.45) 03/20/16 04:59 ABG pCO2 50 mmHg (35-45) H 03/20/16 04:59 ABG pO2 85 mmHg (85-104) 03/20/16 04:59 ABG HCO3 34.0 mEQ/L (21-27) H 03/20/16 04:59 ABG O2 Saturation 97 % (95-98) 03/20/16 04:59 Calcium 9.1 mg/dL (8.6-10.8) 03/29/16 11:03 Phosphorus 3.8 mg/dL (2.3-4.7) 03/22/16 03:30 Magnesium 1.8 mg/dL (1.6-2.6) 03/23/16 03:00 - Attending Attestation I examined this patient and my medical decision-making was reviewed with the SHIP PROPELLER FINISHER/PA/Advanced Practice Nurse/Resident Physician. I agree with the documented findings, disposition and treatment plan as described except to the extent set forth below. Pt seen and examined with at bedside. Still confused. s/p fistulogram with succesful angioplasty with 2 stents placed. Fistula was used yesterday without difficulty. ECF on discharge per .
[2016-03-29 11:15] LABS: VBG PH 7.39 pH Units (7.32-7.42)
[2016-03-29 11:26] LABS: Albumin 2.4 g/dL (3.5-5.0); Albumin/Globulin Ratio 0.6 (1.1-2.2); Bilirubin,Direct 0.1 mg/dL (0.0-0.5); Bilirubin,Indirect 0.1 mg/dL (0.0-1.2); Bilirubin,Total 0.2 mg/dL (0.2-1.2); Calcium 9.1 mg/dL (8.6-10.8); Potassium 3.8 mEq/L (3.5-4.5); Total Protein 6.4 g/dL (6.0-8.3)
[2016-03-29 11:47] LABS: Thyroid Stimulating Hormone 3.76 mcIU/mL (0.350-4.840); Triiodothyronine (T3) Free 1.99 pg/mL (1.71-3.71)
[2016-03-29] MEDS: risperiDONE 0.25 MG TABLET PO SCH ×2 (12:49→21:06)
--- NOTE | 2016-03-29 16:00 | Internal Med Progress Note ---
Date of Encounter: 03/29/16 Time of Encounter: 12:30 - Assessment and plan (1) Altered mental state Current Visit: Yes Status: Acute Assessment and plan: Patient has not had any response to Seroquel. Will stop Seroquel. Start risperidone. Minimize environmental stimuli. Continue one-to-one sitter and neuro checks. CT of the head shows moderate brain atrophy suggestive of dementia. Qualifiers: Altered mental status type: delirium Qualified Code(s): R41.0 - Disorientation, unspecified (2) Acute respiratory failure requiring reintubation Current Visit: Yes Status: Resolved (3) Diabetes mellitus Current Visit: Yes Status: Acute Assessment and plan: Blood sugars were uncontrolled again this morning. Patient does have brittle diabetes. We will start long-acting insulin at bedtime in addition to his morning dose. Continue to monitor blood sugars closely. 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 mellitus terminal operations supervisor insulin use: with terminal operations supervisor use Chronic kidney disease stage: on chronic dialysis Qualified Code(s): E11.22 - Type 2 diabetes mellitus with diabetic chronic kidney disease; N18.6 - End stage renal disease; Z79.4 - rn long term care (current) use of insulin; Z99.2 - Dependence on renal dialysis (4) Dialysis AV fistula malfunction Current Visit: Yes Status: Acute Assessment and plan: Now functioning AV fistula. Qualifiers: Encounter type: initial encounter Qualified Code(s): T82.590A - Other mechanical complication of surgically created arteriovenous fistula, initial encounter (5) PEA (Pulseless electrical activity) Current Visit: Yes Status: Resolved (6) ESRD (end stage renal disease) on dialysis Current Visit: Yes Status: Chronic Assessment and plan: Continue dialysis per nephrology recommendations. (7) Hypertension Current Visit: Yes Status: Chronic Assessment and plan: Better controlled. Continue metoprolol Qualifiers: Hypertension type: essential hypertension Qualified Code(s): I10 - Essential (primary) hypertension (8) Cardiac arrest Current Visit: Yes Status: Resolved (9) Hyperkalemia Current Visit: Yes Status: Resolved (10) DVT prophylaxis Current Visit: Yes Status: Acute Assessment and plan: With subcutaneous heparin (11) UTI (urinary tract infection) due to Enterococcus Current Visit: Yes Status: Acute Assessment and plan: Vancomycin-resistant. Continue Zyvox. Moderate risk for complications. - Subjective Interval history: Patient continues to have intermittent hallucinations and remains disoriented and confused. Patient's is present at bedside. He underwent CT scan of the head this morning. He has been able to be redirected and oriented intermittently. One-to-one sitter present at bedside. - Constitutional Vitals: Temp Pulse Resp BP Pulse Ox 97.8 F 94 18 128/49 95 03/29/16 12:05 03/29/16 12:05 03/29/16 12:05 03/29/16 12:05 03/29/16 12:05 General appearance: Present: cooperative, A&O X 2, no acute distress, answers questions appropriately Internal Medicine: Result - Labs CBC & Chem 7: 03/28/16 06:41 03/29/16 11:03 Labs: BMP 03/29/16 11:03 Sodium 135 L D Potassium 3.8 Chloride 99 Carbon Dioxide 22 BUN 44 H D Creatinine 8.53 H Glucose 402 H Calcium 9.1 Liver Function 03/29/16 Range/Units 11:03 Total Bilirubin 0.2 (0.2-1.2) mg/dL Direct Bilirubin 0.1 (0.0-0.5) mg/dL AST 12 (5-34) Units/L ALT 6 (0-55) Units/L Alkaline Phosphatase 181 H (38-126) Units/L Albumin 2.4 L (3.5-5.0) g/dL - ABG Interpretation ABG results: ABG ABG pH 7.44 pH Units (7.32-7.45) 03/20/16 04:59 ABG pCO2 50 mmHg (35-45) H 03/20/16 04:59 ABG pO2 85 mmHg (85-104) 03/20/16 04:59 ABG O2 Saturation 97 % (95-98) 03/20/16 04:59 PT/INR, D-dimer PT 12.3 Seconds (9.4-12.1) H 03/19/16 16:48 - Impressions Impressions Head CT 03/29/16 09:00 IMPRESSION: Moderate atrophy with mild periventricular and scattered frontal parietal white matter disease, likely due to small-vessel ischemic change. D/ / Krishna Garrido MD / Krishna Garrido MD Interpreting Provider: Krishna Garrido MD Consult Discharge Plan - Plan Referrals: Jimi Santana MD [Primary Care Provider] - (patient will follow up ecf pcp if patient decides to go to ecf ) - Attending Attestation This document has been at least partially created by [employer] recognition technology by Dr. Mays. Errors in grammar, wording or other phrases may exist. If errors are found after the documentation is signed, they will be addressed individually in the addendum section of this document when appropriate.
[2016-03-29] MEDS ORDERED: Insulin DETEMIR 100 UNIT/ML X5UNITS SQ SCH (21:00)
[2016-03-29] MEDS: Melatonin 3 MG TABLET PO SCH (21:06)
[2016-03-30] MEDS: Levothyroxine 25 MCG TABLET PO SCH (06:41)
[2016-03-30] MEDS: Aspirin Enteric Coated 81 MG Tablet PO SCH (06:41)
[2016-03-30] MEDS: risperiDONE 0.25 MG TABLET PO SCH ×2 (06:41→22:02)
[2016-03-30] MEDS: Folic Acid 1 MG TABLET PO SCH (06:42)
[2016-03-30] MEDS: *HR* Heparin 5,000 UNIT/ML VIAL SQ SCH ×2 (06:42→22:03)
[2016-03-30] MEDS ORDERED: 0.9 % Sodium Chloride 4,000 ML ONE (08:12)
[2016-03-30 08:29] LABS: Calcium 9.2 mg/dL (8.6-10.8); Potassium 4.5 mEq/L (3.5-4.5)
[2016-03-30] MEDS: Insulin DETEMIR 100 UNIT/ML X5UNITS SQ SCH ×2 (08:36→22:03)
[2016-03-30] MEDS: Insulin LISPRO 300 UNITS/3 ML VIAL SQ SCH ×8 (08:37→18:10)
[2016-03-30 08:46] LABS: Hematocrit 25.2 % (37.5-50.1); Hemoglobin 8.3 g/dL (12.9-16.9); Mean Corpuscular HGB Conc 32.9 g/dL (31.6-35.5); Mean Corpuscular Hemoglobin 31.2 pg (28.0-33.3); Mean Corpuscular Volume 94.7 fL (83.0-100.0); Mean Platelet Volume 10.7 fL (9.4-12.4); Platelet Count 490 K/mcL (140-400); Red Blood Count 2.66 M/mcL (4.19-5.50); Red Cell Distribution Width 14.3 % (11.5-14.5)
[2016-03-30] MEDS ORDERED: 0.9 % Sodium Chloride 250 ML IV PRN (09:29)
--- NOTE | 2016-03-30 12:06 | Nephrology Progress Note ---
Date of Encounter: 03/30/16 Time of Encounter: 12:02 - Assessment and Plan (1) Altered mental state Current Visit: Yes Status: Acute Patient experienced what appeared to be a seizure. I have spoken with his hospitalist who has called Dr. Murrieta (neurology). EEG is ordered and seizure precautions have been ordered. Patient is having frequent episodes of what sound like seizures. He is also having moments where his limbs are flacid and he is nonresponsive. These episodes seem to be self limited. Qualifiers: Altered mental status type: delirium Qualified Code(s): R41.0 - Disorientation, unspecified (2) ESRD (end stage renal disease) on dialysis Current Visit: Yes Status: Chronic Dialysis MWF. Had to discontinue diaysis today. Will check for HD needs Saturday. (3) Hypertension Current Visit: Yes Status: Chronic Titrate antihypertensive medication as needed. BP currently controlled. Qualifiers: Hypertension type: essential hypertension Qualified Code(s): I10 - Essential (primary) hypertension (4) Insulin dependent diabetes mellitus Current Visit: Yes Status: Chronic Per primary team. Subjective Principal diagnosis: s/p cardiopulmonary arrest Interval history: Patient seen while on dialysis. While he was on dialysis he experienced tonic clonic actions of his upper extremities and decreased responsiveness. His glucose was in the 190s and his SBP was greater than 100 during the event. His eyes also remained open. His dialysis was discontinued and he began to slowly come around after about 5-7 minutes. He was able to move all extremities. He initially had a weak tripe finisher with slurred speech, but after about a minute his tripe finisher strength improved along with his speech. He was sent back to his room. I discussed the case with his hospitalist who had already ordered an EEG. Patient improved prior to leaving the dialysis unit. Objective - Vital Signs Vital signs: Vital Signs Temp Pulse Resp BP Pulse Ox 03/30/16 11:54 97.6 F 84 16 113/69 99 03/30/16 11:30 108/63 03/30/16 11:20 126/64 03/30/16 11:05 128/63 03/30/16 10:50 121/71 03/30/16 10:35 110/69 03/30/16 10:20 97.8 F 18 105/79 03/30/16 07:00 97.8 F 84 18 139/74 94 L 03/30/16 04:29 98.0 F 81 99 131/68 99 03/30/16 00:36 97.8 F 72 18 92/47 95 03/29/16 20:27 98.2 F 81 16 164/76 96 03/29/16 16:14 97.3 F L 80 18 128/62 91 L 03/29/16 12:05 97.8 F 94 18 128/49 95 Intake and Output 03/29/16 03/30/16 03/30/16 23:59 07:59 15:59 Intake Total 960 / 960 Output Total 50 / 50 Balance -50 / -50 960 / 960 Intake: Oral 360 / 360 Intake, Rinseback and 600 / 600 Flushes Output: Urostomy 50 / 50 Other: Meal Breakfast Percent of Meal Consumed 100% Stool Size Copious Large Copious Stool Consistency liquid liquid soft Stool Color Brown Brown Brown # Bowel Movements 1 1 1 # Bowel Movement Diapers 1 Weight 87.2 kg Blood Glucose* 151 306 195 Hemodialysis Net Fluid 1420 Removed (mL) Patient Weight 03/30/16 23:59 Weight 87.2 kg - General Appearance General appearance: Present: well-developed, well-nourished Exam: Seen on dialysis EENT: Present: ATNC Neck: Present: supple Respiratory: Present: clear Cardiology: Present: no edema, regular rate, regular rhythm Dialysis Vascular Access: Arteriovenous Fistula Gastrointestinal: Present: normoactive bowel sounds, no tenderness, no guarding Integumentary: Present: no rash, warm and dry Neurologic: Present: confused ( see HPI for other details. ) Musculoskeletal: Present: no cyanosis - Lab 03/30/16 07:56 03/30/16 07:56 Most recent lab results ABG pH 7.44 pH Units (7.32-7.45) 03/20/16 04:59 ABG pCO2 50 mmHg (35-45) H 03/20/16 04:59 ABG pO2 85 mmHg (85-104) 03/20/16 04:59 ABG HCO3 34.0 mEQ/L (21-27) H 03/20/16 04:59 ABG O2 Saturation 97 % (95-98) 03/20/16 04:59 Calcium 9.2 mg/dL (8.6-10.8) 03/30/16 07:56 Phosphorus 8.6 mg/dL (2.3-4.7) H 03/30/16 07:56 Magnesium 1.8 mg/dL (1.6-2.6) 03/23/16 03:00 Consult Discharge Plan - Plan Referrals: Jimi Santana MD [Primary Care Provider] - (patient will follow up [facility] pcp if patient decides to go to ecf )
--- NOTE | 2016-03-30 12:49 | Neurology - Consult Note ---
Date of Encounter: 03/30/16 Time of Encounter: 12:45 Assessment and Plan (1) Seizure Current Visit: Yes Status: Acute Patient appears to have had a brief seizure during dialysis. It is my suspicion of course that this episode was due to symptomatic etiologies. I find no evidence to arouse suspicions for a primary central nervous system infections, vascular, or inflammatory process. I have seen episodes of this nature occurred as a result to fluid shifts during dialysis, I would like to rule out the possibility of nonconvulsive status which can cause of confusion and patient's are chronically ill with multiple organ involvement. He has no nuchal rigidity, I see no evidence to suspect a central nervous system infectious process. Haldol is known to be epileptogenic. Currently he is awake but somewhat confused and somnolent consistent with delirium. We will obtain an EEG will also send him for MRI scan of the brain. I will hold off on antiepileptic medications at this time. History of Present Illness HPI: Mr. Bourne is a 70 year old male with a complicated medical history which includes recent cardiac arrest, end-stage renal disease, diabetes mellitus, hypertension, enterococcal UTI secondary to VRE and acute respiratory failure who was seen for neurologic consultation secondary to what appears to have been an episode of seizure. The episode occurred during dialysis. Apparently he affects his arms up to his chest. He was seen to have "staring spells" according to nursing and his . The period of confusion lasted about 30 minutes or so. At the time of my assessment however he is more awake, a bit groggy but able to follow simple commands and answer simple questions. He denies headache. He does not have a prior history of seizures. He is not febrile. He has had waxing and waning levels of mental status change during his hospitalization consistent with delirium perhaps secondary to multiorgan failure and acute urinary tract infection. Past Med Surg Social Fam HX - Past Medical History Medical history: cancer (bladder), CHF (unclear etiology--awaiting records. ), coronary artery disease, diabetes, hypertension, myocardial infarction, renal disease Psychiatric history: no psych history - Past Surgical History Surgical History: cholecystectomy, vascular surgery - Social History Smoking Status: Never smoker Smokeless Tobacco Status: No Alcohol use: none Drug use: none Medications and Allergies Aspirin [Lo-Dose Aspirin EC] 81 mg PO DAILY 03/18/16 [History] Calcium Acetate [Phos-LO] 667 mg PO TIDAC 03/18/16 [History] Ergocalciferol (VITAMIN D2) [Vitamin D2] 50,000 unit PO QWEEK 03/18/16 [History] Insulin ASPART [Novolog Flexpen] 12 - 14 unit SQ TID 03/18/16 [History] Insulin DETEMIR [Levemir] 20 unit SQ HS 03/18/16 [History] Levothyroxine [Synthroid] 25 mcg PO DAILY 03/18/16 [History] Omeprazole [PriLOSEC] 20 mg PO BID 03/18/16 [History] Simvastatin [Zocor] 40 mg PO HS 03/18/16 [History] Allergies Sulfa (Sulfonamide Antibiotics) Allergy (Severe, Verified 03/21/16 07:20) Anaphylaxis codeine Allergy (Unknown, Verified 03/19/16 07:08) See Comments UNSURE OF REACTION- LISTED ON PATIENT'S ECW ROS unobtainable: due to mental status (Judaism review of systems unreliable due to the circumstances.) All Systems: A 10-system review of systems was performed and is negative for pertinent findings except as documented above in the HPI. Physical Examination - Vital Signs Vital Signs: Initial Vital Signs Resp BP Pulse Ox 12 162/86 95 03/18/16 18:28 03/18/16 18:28 03/18/16 18:28 - Exam Exam: Mental status assessment finds that he is awake, but somewhat lethargic and not completely lucid. He does make eye contact, he does follow some simple commands. He is able to identify his was in the room with us. He knows that he is in the [facility]. He knows his left from his right. There is no aphasia. His voice however is hypophonic. CN-Pupils are equal and reactive to light and accommodation, extraocular motility is intact, sensory to face is intact, there is no facial asymmetry identified. His speech is hypophonic and somewhat dysarthric. Tongue protrudes midline. Motor exam-findings of October both upper and lower extremities. He has both upper extremities, he has normal strength of both tibialis anterior muscles. No involuntary movements or atrophy are present at this time. Sensory exam-he is generally not reliable in patients who are lethargic or confused. Deep tendon reflexes-1 symmetrical in the biceps triceps brachioradialis and patella. Absent Achilles. No clonus or Babinski at present. Results - Laboratory Findings CBC and BMP: 03/30/16 07:56 03/30/16 07:56 Abnormal lab findings: Abnormal lab results WBC 11.3 K/mcL (4.3-11.1) H 03/30/16 07:56 RBC 2.66 M/mcL (4.19-5.50) L 03/30/16 07:56 Hgb 8.3 g/dL (12.9-16.9) L 03/30/16 07:56 Hct 25.2 % (37.5-50.1) L 03/30/16 07:56 Plt Count 490 K/mcL (140-400) H 03/30/16 07:56 PT 12.3 Seconds (9.4-12.1) H 03/19/16 16:48 ABG pCO2 50 mmHg (35-45) H 03/20/16 04:59 ABG HCO3 34.0 mEQ/L (21-27) H 03/20/16 04:59 ABG Total CO2 35.5 mEq/L (20-26) H 03/20/16 04:59 ABG Base Excess 8.8 mEq/L (-2.0 to 3.0) H 03/20/16 04:59 VBG pO2 89 mmHg (25-40) H 03/29/16 11:03 BUN 57 mg/dL (8-26) H D 03/30/16 07:56 Creatinine 10.60 mg/dL (0.72-1.25) H 03/30/16 07:56 Est GFR ( Amer) 6 (> 60) L 03/30/16 07:56 Est GFR (Non-Af Amer) 5 (> 60) L 03/30/16 07:56 BUN/Creatinine Ratio 5 (6-26) L 03/30/16 07:56 Glucose 288 mg/dL (70-99) H 03/30/16 07:56 POC Glucose 146 (58-89) H 03/29/16 14:27 Calculated Osmolality 312 (280-300) H 03/30/16 07:56 Phosphorus 8.6 mg/dL (2.3-4.7) H 03/30/16 07:56 Alkaline Phosphatase 181 Units/L (38-126) H 03/29/16 11:03 Troponin I 0.21 ng/mL (0-0.03) H* 03/19/16 14:13 Albumin 2.4 g/dL (3.5-5.0) L 03/29/16 11:03 Globulin 4.0 g/dL (2.4-3.5) H 03/29/16 11:03 Albumin/Globulin Ratio 0.6 (1.1-2.2) L 03/29/16 11:03 Prolactin 44.24 ng/mL (3.46-19.40) H 03/29/16 11:03 Urine Clarity Cloudy (Clear) A 03/23/16 06:10 Urine Protein >=300 mg/dL (Neg-Trace) H 03/23/16 06:10 Urine Blood Moderate (Negative) H 03/23/16 06:10 Urine Microscopic RBC 5-15 per hpf (0-3) H 03/23/16 06:10 Urine Microscopic WBC 5-15 per hpf (0-3) H 03/23/16 06:10 Ur Squamous Epith Cells Many per lpf (None-Few) H 03/23/16 06:10 Urine Bacteria Many per hpf (None-Few) H 03/23/16 06:10 Ur Culture Indicated? YES (NO) A 03/23/16 06:10 Consult Discharge Plan - Plan Referrals: Jimi Santana MD [Primary Care Provider] - (patient will follow up [facility] pcp if patient decides to go to e[facility] )
[2016-03-30] MEDS: Thiamine (B-1) 100 MG TABLET PO SCH (14:09)
[2016-03-30] MEDS: Linezolid 600 MG TABLET PO SCH ×2 (14:09→22:02)
--- NOTE | 2016-03-30 14:33 | EEG/EMG/Oth Biometrics Report ---
EEG Procedure Report Date of procedure: 03/30/16 (Possible seizure) EEG Procedure: Routine EEG Procedure Note: This is a report of a 21 channel bipolar and referential montage EEG recorded with the patient who was witnessed to have had a brief episode of seizure. There is no posterior dominant alpha rhythm identified during the recording. The resting rhythm consists of low-voltage theta frequency present symmetrically in the posterior head regions. This rhythm was poorly organized and poorly sustained. Intermittent myogenic artifact and bifrontal beta frequencies are present. Hyperventilation was not performed during the recording. There is no sleep architecture identified during the study. Photic stimulation is performed and does not produce a driving response. The EKG strip reveals normal sinus rhythm at 70 beats per minute. Impressions: This EEG recording is abnormal and is consistent with a mild to moderate generalized encephalopathy. There is no evidence of epileptiform activity identified during the study. Etiologies to explain the above aforementioned interpretation might include toxic, metabolic, postictal, degenerative, infectious. Please correlate clinically. The documentation in the history of HPI and plan were at least partially created by [employer] voice recognition technology by Dr. Murrieta. Errors in grammar, wording or other phrases may exist. If errors are found after the documentation signed, they will be addressed individually in the addendum section of this document when appropriate.
--- NOTE | 2016-03-30 15:11 | Internal Med Progress Note ---
Date of Encounter: 03/30/16 Time of Encounter: 12:30 - Assessment and plan (1) Altered mental state Current Visit: Yes Status: Acute Assessment and plan: No improvement in patient's condition. He did sleep better yesterday with risperidone and was doing well this morning. Since then he has been having intermittent episodes of blank staring spells. Concerning for possible epileptic activity. Neurology consulted. EEG ordered. Seizure precautions. At this time, no indication for antiepileptic therapy. High risk for complications. 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 We will increase evening long- acting insulin and decrease morning dose. Continue to monitor blood sugars closely. 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 insulin use: with terminal gauger supervisor use Chronic kidney disease stage: on chronic dialysis Qualified Code(s): E11.22 - Type 2 diabetes mellitus with diabetic chronic kidney disease; N18.6 - End stage renal disease; Z79.4 - [employer] [employer] representative (current) use of insulin; Z99.2 - Dependence on renal dialysis (4) Dialysis AV fistula malfunction Current Visit: Yes Status: Resolved Qualifiers: Encounter type: initial encounter Qualified Code(s): T82.590A - Other mechanical complication of surgically created arteriovenous fistula, initial encounter (5) PEA (Pulseless electrical activity) Current Visit: Yes Status: Resolved (6) ESRD (end stage renal disease) on dialysis Current Visit: Yes Status: Chronic Assessment and plan: Continue dialysis management per nephrology recommendations. (7) Hypertension Current Visit: Yes Status: Chronic Assessment and plan: Controlled Qualifiers: Hypertension type: essential hypertension Qualified Code(s): I10 - Essential (primary) hypertension (8) Cardiac arrest Current Visit: Yes Status: Resolved (9) Hyperkalemia Current Visit: Yes Status: Resolved (10) DVT prophylaxis Current Visit: Yes Status: Acute (11) UTI (urinary tract infection) due to Enterococcus Current Visit: Yes Status: Acute Assessment and plan: On Zyvox for vancomycin-resistant enterococcus. - Subjective Interval history: Patient remains encephalopathic but able to be redirected. He has been having episodes of blank staring and unresponsiveness but this improves within a few seconds. During dialysis, he was noted to have increased frequency of these spells and during one of these episodes was having some increased contractions in upper extremities. He has been placed on seizure precautions now. - Constitutional Vitals: Temp Pulse Resp BP Pulse Ox 97.6 F 84 16 113/69 99 03/30/16 11:54 03/30/16 11:54 03/30/16 11:54 03/30/16 11:54 03/30/16 11:54 General appearance: Present: cooperative, A&O X 1, no acute distress, answers questions appropriately - Respiratory Respiratory exam: Present: CTAB. Absent: accessory muscle use, rales, rhonchi, wheezes - Cardiovascular Cardiovascular exam: Present: RRR, +S1, +S2. Absent: diastolic murmur, gallop, rubs, systolic murmur - Extremities Exam Extremities exam: Present: warm, radial pulses palpable and symetrical. Absent : calf tenderness, cyanotic, pedal edema - Neurological Exam Neurological exam: Present: altered, no focal deficits. Absent: facial droop, speech deficit Additional comments: Normal strength. Following some commands. - Skin Skin exam: Present: dry, intact Internal Medicine: Result - Labs CBC & Chem 7: 03/30/16 07:56 03/30/16 07:56 Labs: Short CBC 03/30/16 Range/Units 07:56 WBC 11.3 H (4.3-11.1) K/mcL Hgb 8.3 L (12.9-16.9) g/dL Hct 25.2 L (37.5-50.1) % Plt Count 490 H (140-400) K/mcL BMP 03/30/16 07:56 Sodium 138 Potassium 4.5 Chloride 100 Carbon Dioxide 22 BUN 57 H D Creatinine 10.60 H Glucose 288 H Calcium 9.2 - ABG Interpretation ABG results: ABG ABG pH 7.44 pH Units (7.32-7.45) 03/20/16 04:59 ABG pCO2 50 mmHg (35-45) H 03/20/16 04:59 ABG pO2 85 mmHg (85-104) 03/20/16 04:59 ABG O2 Saturation 97 % (95-98) 03/20/16 04:59 PT/INR, D-dimer PT 12.3 Seconds (9.4-12.1) H 03/19/16 16:48 Consult Discharge Plan - Plan Referrals: Jimi Santana MD [Primary Care Provider] - (patient will follow [facility] decides to [facility] to [facility] ) - Attending Attestation This document has been at least partially created by [employer] recognition technology by Dr. Mays. Errors in grammar, wording or other phrases may exist. If errors are found after the documentation is signed, they will be addressed individually in the addendum section of this document when appropriate.
[2016-03-30] MEDS: Melatonin 3 MG TABLET PO SCH (22:02)
[2016-03-31 06:48] LABS: Basophils # 0.1 K/mcL (0.0-0.2); Basophils % 0.5 %; Eosinophils # 0.2 K/mcL (0.0-0.6); Eosinophils % 1.5 %; Hematocrit 24.8 % (37.5-50.1); Hemoglobin 8.2 g/dL (12.9-16.9); Immature Granulocytes % 0.6 % (0-4); Immature Platelets 4.3 % (1.1-6.1); Lymphocytes # 1.4 K/mcL (0.6-4.6); Lymphocytes % 8.8 %; Mean Corpuscular HGB Conc 33.1 g/dL (31.6-35.5); Mean Corpuscular Hemoglobin 31.2 pg (28.0-33.3); Mean Corpuscular Volume 94.3 fL (83.0-100.0); Mean Platelet Volume 10.6 fL (9.4-12.4); Monocytes # 0.9 K/mcL (0.0-1.3); Monocytes % 5.9 %; Neutrophils # 12.8 K/mcL (1.6-8.9); Platelet Count 597 K/mcL (140-400); Red Blood Count 2.63 M/mcL (4.19-5.50); Red Cell Distribution Width 14.4 % (11.5-14.5); Segmented Neutrophils % 82.7 %
[2016-03-31 07:03] LABS: Calcium 9.2 mg/dL (8.6-10.8); Potassium 4.2 mEq/L (3.5-4.5)
[2016-03-31] MEDS: Aspirin Enteric Coated 81 MG Tablet PO SCH (07:52)
[2016-03-31] MEDS: Folic Acid 1 MG TABLET PO SCH (07:52)
[2016-03-31] MEDS: Thiamine (B-1) 100 MG TABLET PO SCH (07:52)
[2016-03-31] MEDS: *HR* Heparin 5,000 UNIT/ML VIAL SQ SCH ×2 (07:52→21:57)
[2016-03-31] MEDS: risperiDONE 0.25 MG TABLET PO SCH ×2 (07:52→21:56)
[2016-03-31] MEDS: Linezolid 600 MG TABLET PO SCH ×2 (07:52→21:56)
[2016-03-31] MEDS: Insulin LISPRO 300 UNITS/3 ML VIAL SQ SCH ×6 (08:20→16:29)
[2016-03-31] MEDS: Levothyroxine 25 MCG TABLET PO SCH (08:21)
[2016-03-31] MEDS: Insulin DETEMIR 100 UNIT/ML X5UNITS SQ SCH ×2 (08:23→22:52)
--- NOTE | 2016-03-31 10:42 | Nephrology Progress Note ---
Date of Encounter: 03/31/16 Time of Encounter: 10:34 - Assessment and Plan (1) Altered mental state Current Visit: Yes Status: Acute Patient experienced what appeared to be a seizure. EEG negative for epileptiform activity, but does not rule out postictal state. Patient's lactic acid was elevated imediately after the event. Dr. Murrieta, neurology, is following. Patient appears to have an acute infarct on MRI. He is more confused this morning and has a sitter in place. Await neurology further recommendations. Qualifiers: Altered mental status type: delirium Qualified Code(s): R41.0 - Disorientation, unspecified (2) ESRD (end stage renal disease) on dialysis Current Visit: Yes Status: Chronic Dialysis MWF. No need for HD today. Will plan for HD on Saturday. Adjust medication for renal function and provide a renal diet. (3) Hypertension Current Visit: Yes Status: Chronic Titrate antihypertensive medication as needed. BP currently controlled. Qualifiers: Hypertension type: essential hypertension Qualified Code(s): I10 - Essential (primary) hypertension (4) Insulin dependent diabetes mellitus Current Visit: Yes Status: Chronic Per primary team. (5) Anemia Current Visit: Yes Status: Acute Check iron stores, vitamin b12 and folate. Qualifiers: Qualified Code(s): D64.9 - Anemia, unspecified (6) Hyperphosphatemia Current Visit: Yes Status: Acute Provide phosphate binders and renal diet. Check phosphorus, vitamin D, PTH and calcium. (7) UTI (urinary tract infection) due to Enterococcus Current Visit: Yes Status: Acute VRE UTI. Could be contributing to confusion. Patient on linezolid. Consider repeat urine culture. Subjective Principal diagnosis: s/p cardiopulmonary arrest Interval history: Patient seen and evaluated. He has a sitter. He thinks he is in a barn and that his has gone to visit a walker next door. He does not know the year. ROS unobtainable secondary to mental status. Objective - Vital Signs Vital signs: Vital Signs Temp Pulse Resp BP Pulse Ox 03/31/16 08:28 98.3 F 95 18 121/65 91 L 03/31/16 07:00 98.3 F 90 18 121/65 03/31/16 05:00 98.7 F 86 16 126/66 03/31/16 03:33 98.1 F 100 16 155/68 96 03/31/16 00:28 98.6 F 94 16 126/74 03/30/16 22:59 98.6 F 97 16 129/71 98 03/30/16 19:25 97.9 F 100 16 115/60 100 03/30/16 11:54 97.6 F 84 16 113/69 99 03/30/16 11:50 97.8 F 18 112/63 03/30/16 11:30 108/63 03/30/16 11:20 126/64 03/30/16 11:05 128/63 03/30/16 10:50 121/71 03/30/16 10:35 110/69 Intake and Output 03/30/16 03/31/16 03/31/16 23:59 07:59 15:59 Intake Total 240 / 240 150 / 150 240 / 240 Output Total 75 / 75 Balance 240 / 240 75 / 75 240 / 240 Intake: Oral 240 / 240 150 / 150 240 / 240 Output: Urine 0 / 0 Urostomy 75 / 75 Other: Meal Dinner Breakfast Percent of Meal Consumed 60% 80% Stool Size Moderate Stool Consistency soft formed Stool Color Brown # Bowel Movements 1 Weight 86.075 kg 86.075 kg Blood Glucose* 141 255 Patient Weight 03/31/16 23:59 Weight 86.075 kg - General Appearance General appearance: Present: well-developed, well-nourished, chronically ill EENT: Present: ATNC Neck: Present: supple Respiratory: Present: clear Cardiology: Present: no edema, regular rate, regular rhythm Gastrointestinal: Present: normoactive bowel sounds Integumentary: Present: warm and dry Neurologic: Present: disoriented Musculoskeletal: Present: no cyanosis Psychiatric: Present: mood/affect appropriate - Lab 03/31/16 06:24 03/31/16 06:24 Most recent lab results ABG pH 7.44 pH Units (7.32-7.45) 03/20/16 04:59 ABG pCO2 50 mmHg (35-45) H 03/20/16 04:59 ABG pO2 85 mmHg (85-104) 03/20/16 04:59 ABG HCO3 34.0 mEQ/L (21-27) H 03/20/16 04:59 ABG O2 Saturation 97 % (95-98) 03/20/16 04:59 Calcium 9.2 mg/dL (8.6-10.8) 03/31/16 06:24 Phosphorus 8.6 mg/dL (2.3-4.7) H 03/30/16 07:56 Magnesium 1.8 mg/dL (1.6-2.6) 03/23/16 03:00 Consult Discharge Plan - Plan Referrals: Jimi Santana MD [Primary Care Provider] - (patient will follow up [facility] if [facility] decides to go to [facility] )
--- NOTE | 2016-03-31 12:11 | Internal Med Progress Note ---
Date of Encounter: 03/31/16 Time of Encounter: 12:08 - Assessment and plan (1) Ischemic stroke of frontal lobe Current Visit: Yes Status: Acute Assessment and plan: MRI of the brain shows a 5 mm frontal lobe infarct. Monitoring per stroke scale. No focal deficits besides dementia and delirium. Started statin. Already on aspirin. Moderate risk for complications (2) Seizure Current Visit: Yes Status: Suspected Assessment and plan: EEG does not show any epileptic activity. MRI of the brain showed acute frontal lobe infarct. This could explain some of the symptoms of the patient. Not on antiepileptic agents. Neurology consulted. (3) Altered mental state Current Visit: Yes Status: Acute Assessment and plan: Likely related to delirium and acute frontal lobe stroke. Continue supportive care. One-to-one sitter. On risperidone. Qualifiers: Altered mental status type: delirium Qualified Code(s): R41.0 - Disorientation, unspecified (4) Acute respiratory failure requiring reintubation Current Visit: Yes Status: Resolved (5) Diabetes mellitus Current Visit: Yes Status: Acute Assessment and plan: Improving blood sugars. Will continue to monitor blood sugars. Continue current insulin regimen. 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 mellitus correction insulin use: with correction use Chronic kidney disease stage: on chronic dialysis Qualified Code(s): E11.22 - Type 2 diabetes mellitus with diabetic chronic kidney disease; N18.6 - End stage renal disease; Z79.4 - [facility] (current) use of insulin; Z99.2 - Dependence on renal dialysis (6) Dialysis AV fistula malfunction Current Visit: Yes Status: Resolved Qualifiers: Encounter type: initial encounter Qualified Code(s): T82.590A - Other mechanical complication of surgically created arteriovenous fistula, initial encounter (7) PEA (Pulseless electrical activity) Current Visit: Yes Status: Resolved (8) ESRD (end stage renal disease) on dialysis Current Visit: Yes Status: Chronic Assessment and plan: Dialysis per nephrology recommendations (9) Hypertension Current Visit: Yes Status: Chronic Assessment and plan: Well-controlled Qualifiers: Hypertension type: essential hypertension Qualified Code(s): I10 - Essential (primary) hypertension (10) Cardiac arrest Current Visit: Yes Status: Resolved (11) Hyperkalemia Current Visit: Yes Status: Resolved (12) DVT prophylaxis Current Visit: Yes Status: Acute Assessment and plan: On subcutaneous heparin (13) UTI (urinary tract infection) due to Enterococcus Current Visit: Yes Status: Acute Assessment and plan: On Zyvox. (14) Leukocytosis Current Visit: Yes Status: Acute Assessment and plan: Leukocytosis is worsening. Patient having some loose stools. Will check stool for C. difficile. Qualifiers: Leukocytosis type: other Qualified Code(s): D72.828 - Other elevated white blood cell count - Subjective Interval history: Patient is awake and alert but disoriented. Continues to have intermittent hallucinations and dementia. One-to-one sitter at bedside. Denies any new focal weakness or numbness. No headache reported. - Constitutional Vitals: Temp Pulse Resp BP Pulse Ox 97.4 F L 83 18 106/59 93 L 03/31/16 11:26 03/31/16 11:26 03/31/16 11:26 03/31/16 11:26 03/31/16 11:26 General appearance: Present: cooperative, A&O X 1, no acute distress, answers questions appropriately - Respiratory Respiratory exam: Present: CTAB. Absent: accessory muscle use, rales, rhonchi, wheezes - Cardiovascular Cardiovascular exam: Present: RRR, +S1, +S2. Absent: diastolic murmur, gallop, rubs, systolic murmur - GI/Abdominal GI/Abdominal exam: Present: normal bowel sounds, soft, no peritoneal signs. Absent: distended, tenderness - Neurological Exam Neurological exam: Present: alert, CN II-XII intact, no focal deficits, strengths equal and symetr throughout. Absent: facial droop, speech deficit - Skin Skin exam: Present: dry, intact Internal Medicine: Result - Labs CBC & Chem 7: 03/31/16 06:24 03/31/16 06:24 Labs: Short CBC 03/31/16 Range/Units 06:24 WBC 15.5 H (4.3-11.1) K/mcL Hgb 8.2 L (12.9-16.9) g/dL Hct 24.8 L (37.5-50.1) % Plt Count 597 H (140-400) K/mcL Neutrophils # 12.8 H (1.6-8.9) K/mcL BMP 03/31/16 06:24 Sodium 139 Potassium 4.2 Chloride 99 Carbon Dioxide 22 BUN 57 H Creatinine 10.53 H Glucose 186 H Calcium 9.2 - ABG Interpretation ABG results: ABG ABG pH 7.44 pH Units (7.32-7.45) 03/20/16 04:59 ABG pCO2 50 mmHg (35-45) H 03/20/16 04:59 ABG pO2 85 mmHg (85-104) 03/20/16 04:59 ABG O2 Saturation 97 % (95-98) 03/20/16 04:59 PT/INR, D-dimer PT 12.3 Seconds (9.4-12.1) H 03/19/16 16:48 - Impressions Impressions Brain MRI 03/30/16 13:01 IMPRESSION: 1. Acute 5 mm infarct within the subcortical white matter of the right frontal lobe near the vertex. 2. No acute intracranial hemorrhage. 3. Severe diffuse cerebral volume loss. The findings were sent to the Radiology [facility] at 5:26 pm on 03/30/2016to be communicated to a licensed caregiver. D/ / Dagoberto Sanchez MD / Dagoberto Sanchez MD Interpreting Provider: Dagoberto Sanchez MD Consult Discharge Plan - Plan Referrals: Jimi Santana MD [Primary Care Provider] - (patient will follow [facility] if [facility] decides to go to [facility] ) - Attending Attestation This document has been at least partially created by [employer] recognition technology by Dr. Mays. Errors in grammar, wording or other phrases may exist. If errors are found after the documentation is signed, they will be addressed individually in the addendum section of this document when appropriate.
--- NOTE | 2016-03-31 16:09 | Carotid Imaging Report ---
Carotid Duplex Patient Name:Donovan Bourne Order Number:[id number] Procedure Date:03/31/2016 Date:8Age:70 yrs Gender:Male Rt.BP:129 / 71 mmHgHeart Rate: Location:[facility] Room #: [facility] Electrical Controls Assembler:Martin Michelle, WILLARD Referring MD:Erickson Mays MD Reading MD:Donovan Cross MD Study Quality:Technically Difficult Primary Indications:Occlusion and stenosis of carotid artery with cerebral infarction Impressions: The right internal carotid artery has a 60-79% stenosis. The left internal carotid artery has a 60-79% stenosis. Recommendations: Risk factor reduction. Further evaluation recommended if clinically indicated. Follow-up carotid duplex in 6 months. Findings Carotid Duplex: Right: The right proximal common carotid artery has a PSV of 133 cm/s and a EDV of 14 cm/s. The right mid common carotid artery has a PSV of 127 cm/s and a EDV of 12 cm/s. The right distal common carotid artery has a PSV of 141 cm/s and a EDV of 9 cm/s. There is smooth heterogeneous plaque. The right bifurcation has a PSV of 153 cm/s and a EDV of 21 cm/s. There is smooth heterogeneous plaque. There is 60-79% stenosis in the right proximal internal carotid artery with a PSV of 206 cm/s and a EDV of 43 cm/s. There is smooth heterogeneous plaque. There is 60-79% stenosis in the right mid internal carotid artery with a PSV of 147 cm/s and a EDV of 31 cm/s. There is smooth heterogeneous plaque. The right distal internal carotid artery has a PSV of 104 cm/s and a EDV of 21 cm/s. There is smooth heterogeneous plaque. The right eca has a PSV of 253 cm/s and a EDV of 16 cm/s. The right vertebral artery has a PSV of 63 cm/s and a EDV of 17 cm/s. Left: The left proximal common carotid artery has a PSV of 113 cm/s and a EDV of 14 cm/s. The left mid common carotid artery has a PSV of 101 cm/s and a EDV of 19 cm/s. There is smooth heterogeneous plaque. The left distal common carotid artery has a PSV of 114 cm/s and a EDV of 18 cm/s. There is smooth heterogeneous plaque. The left bifurcation has a PSV of 126 cm/s and a EDV of 20 cm/s. There is smooth heterogeneous plaque. There is 60-79% stenosis in the left proximal internal carotid artery with a PSV of 150 cm/s and a EDV of 31 cm/s. There is smooth heterogeneous plaque. There is 60-79% stenosis in the left mid internal carotid artery with a PSV of 135 cm/s and a EDV of 35 cm/s. There is smooth heterogeneous plaque. The left distal internal carotid artery has a PSV of 94 cm/s and a EDV of 24 cm/s. The left eca has a PSV of 164 cm/s and a EDV of 16 cm/s. The left vertebral artery has a PSV of 89 cm/s and a EDV of 19 cm/s. Prior Study: No prior study available for comparison. Carotid Results Right PSV EDV Assessment Proximal CCA 133 14 Normal Mid CCA 127 12 Normal Distal CCA 141 9 Non Stenotic Plaque Bifurcation 153 21 Non Stenotic Plaque Proximal ICA 206 43 60-79% stenosis Mid ICA 147 31 60-79% stenosis Distal ICA 104 21 Non Stenotic Plaque ECA 253 16 Normal Vertebral Artery 63 17 Normal Left PSV EDV Assessment Proximal CCA 113 14 Normal Mid CCA 101 19 Non Stenotic Plaque Distal CCA 114 18 Non Stenotic Plaque Bifurcation 126 20 Non Stenotic Plaque Proximal ICA 150 31 60-79% stenosis Mid ICA 135 35 60-79% stenosis Distal ICA 94 24 Non Stenotic Plaque ECA 164 16 Normal Vertebral Artery 89 19 Normal Ratio's Right ICA/CCA Ratio: 1.62 ICA/CCA Values: 206/127 Left ICA/CCA Ratio: 1.48 ICA/CCA Values: 150/101 Updated by Donovan Cross MD on 03/31/2016 4:05:16 PM electronically signed on 03/31/2016 4:05:36 PM with status of Final
[2016-03-31] MEDS: Melatonin 3 MG TABLET PO SCH (21:57)
[2016-03-31] MEDS: *HR* Metoprolol 5 MG/5 ML VIAL IVP PRN (22:26)
[2016-04-01 06:13] LABS: Basophils # 0.1 K/mcL (0.0-0.2); Basophils % 0.5 %; Eosinophils # 0.2 K/mcL (0.0-0.6); Hematocrit 25.8 % (37.5-50.1); Hemoglobin 8.3 g/dL (12.9-16.9); Immature Granulocytes % 0.7 % (0-4); Lymphocytes # 1.3 K/mcL (0.6-4.6); Lymphocytes % 6.9 %; Mean Corpuscular HGB Conc 32.2 g/dL (31.6-35.5); Mean Corpuscular Hemoglobin 30.9 pg (28.0-33.3); Mean Corpuscular Volume 95.9 fL (83.0-100.0); Mean Platelet Volume 10.8 fL (9.4-12.4); Monocytes # 0.9 K/mcL (0.0-1.3); Monocytes % 4.9 %; Neutrophils # 16.6 K/mcL (1.6-8.9); Platelet Count 592 K/mcL (140-400); Red Blood Count 2.69 M/mcL (4.19-5.50); Red Cell Distribution Width 14.1 % (11.5-14.5)
[2016-04-01 06:34] LABS: Albumin 2.5 g/dL (3.5-5.0); Calcium 9.4 mg/dL (8.6-10.8); Magnesium 1.9 mg/dL (1.6-2.6); Phosphorous 9.8 mg/dL (2.3-4.7); Potassium 4.8 mEq/L (3.5-4.5); Uric Acid 8.7 mg/dL (3.5-7.2)
[2016-04-01] MEDS: Levothyroxine 25 MCG TABLET PO SCH (06:52)
[2016-04-01] MEDS: *HR* Metoprolol 5 MG/5 ML VIAL IVP PRN (06:53)
[2016-04-01] MEDS: Insulin LISPRO 300 UNITS/3 ML VIAL SQ SCH ×7 (06:53→16:16)
[2016-04-01 07:03] LABS: Folate 14.5 ng/mL (7.0-31.4)
[2016-04-01] MEDS: Insulin DETEMIR 100 UNIT/ML X5UNITS SQ SCH ×2 (08:19→21:43)
[2016-04-01] MEDS: risperiDONE 0.25 MG TABLET PO SCH ×2 (09:33→21:39)
[2016-04-01] MEDS: Folic Acid 1 MG TABLET PO SCH (09:34)
[2016-04-01] MEDS: Thiamine (B-1) 100 MG TABLET PO SCH (09:34)
[2016-04-01] MEDS: Aspirin Enteric Coated 81 MG Tablet PO SCH (09:34)
[2016-04-01] MEDS: Linezolid 600 MG TABLET PO SCH ×2 (09:34→21:39)
[2016-04-01] MEDS: *HR* Heparin 5,000 UNIT/ML VIAL SQ SCH ×2 (09:36→21:40)
--- NOTE | 2016-04-01 10:24 | Nephrology Progress Note ---
Date of Encounter: 04/01/16 Time of Encounter: 10:22 - Assessment and Plan (1) ESRD (end stage renal disease) on dialysis Current Visit: Yes Status: Chronic Dialysis MWF. No need for HD today. Will plan for HD on Saturday. Adjust medication for renal function and provide a renal diet. (2) Hypertension Current Visit: Yes Status: Chronic Titrate antihypertensive medication as needed. BP currently controlled. Qualifiers: Hypertension type: essential hypertension Qualified Code(s): I10 - Essential (primary) hypertension (3) Insulin dependent diabetes mellitus Current Visit: Yes Status: Chronic Per primary team. (4) Anemia Current Visit: Yes Status: Acute Iron stores, vitamin b12 and folate are replete. Ferritin is greatly elevated. Monitor. Start Aranesp. Qualifiers: Qualified Code(s): D64.9 - Anemia, unspecified (5) Hyperphosphatemia Current Visit: Yes Status: Acute Provide phosphate binders and renal diet. PTH elevated. Need to control phosphorus and check vitamin D stores. Calcium at the upper limit of normal. (6) UTI (urinary tract infection) due to Enterococcus Current Visit: Yes Status: Acute VRE UTI. Could be contributing to confusion. Patient on linezolid. Consider repeat urine culture. (7) Ischemic stroke of frontal lobe Current Visit: Yes Status: Acute Likely cause of patient's confusion and possible seizure activity. Neurology following. Patient is more oriented today. Subjective Principal diagnosis: s/p cardiopulmonary arrest Interval history: Patient seen and evaluated. He has a sitter. He knows he is in a hospital in [place] and that the year is 2016. He is slow to answer questions. He denies chest pain or other complaints. Objective - Vital Signs Vital signs: Vital Signs Temp Pulse Resp BP Pulse Ox 04/01/16 07:00 98.3 F 94 16 120/62 04/01/16 06:45 97.4 F L 125 18 110/69 97 04/01/16 02:35 98.6 F 84 18 126/62 03/31/16 23:03 99.0 F 107 16 126/66 03/31/16 21:28 99.3 F 132 16 122/76 96 03/31/16 19:12 99.1 F 118 18 124/70 03/31/16 16:22 97.8 F 85 22 128/64 96 03/31/16 15:00 97.8 F 85 22 128/64 03/31/16 11:26 97.4 F L 83 18 106/59 93 L 03/31/16 11:00 97.4 F L 83 18 106/59 Intake and Output 03/31/16 04/01/16 04/01/16 23:59 07:59 15:59 Intake Total 0 / 0 0 / 0 Output Total 200 / 200 0 / 0 Balance -200 / -200 0 / 0 Intake: Oral 0 / 0 0 / 0 Output: Urostomy 200 / 200 0 / 0 Other: Stool Size Moderate Stool Consistency loose soft Stool Color Brown # Bowel Movements 1 Weight 86.06 kg Blood Glucose* 113 268 Patient Weight 04/01/16 23:59 Weight 86.06 kg - General Appearance General appearance: Present: well-developed, well-nourished EENT: Present: ATNC Neck: Present: supple Respiratory: Present: clear Cardiology: Present: edema, regular rate, regular rhythm Gastrointestinal: Present: normoactive bowel sounds, no tenderness Integumentary: Present: warm and dry Neurologic: Present: alert and oriented x3, confused Psychiatric: Present: mood/affect appropriate, cooperative - Lab 04/01/16 05:37 04/01/16 05:37 Most recent lab results ABG pH 7.44 pH Units (7.32-7.45) 03/20/16 04:59 ABG pCO2 50 mmHg (35-45) H 03/20/16 04:59 ABG pO2 85 mmHg (85-104) 03/20/16 04:59 ABG HCO3 34.0 mEQ/L (21-27) H 03/20/16 04:59 ABG O2 Saturation 97 % (95-98) 03/20/16 04:59 Calcium 9.4 mg/dL (8.6-10.8) 04/01/16 05:37 Phosphorus 9.8 mg/dL (2.3-4.7) H 04/01/16 05:37 Magnesium 1.9 mg/dL (1.6-2.6) 04/01/16 05:37 Consult Discharge Plan - Plan Referrals: Jimi Santana MD [Primary Care Provider] - (patient will follow [facility] if [facility] decides to go to [facility] )
--- NOTE | 2016-04-01 14:49 | Neurology Progress Note ---
Date of Encounter: 04/01/16 Time of Encounter: 14:44 Assessment and Plan (1) Seizure Current Visit: Yes Status: Suspected I suspect that the patient may have had a symptomatic seizure secondary to electrolyte imbalance, or perhaps myoclonic convulsions due to the same. I see no evidence of a central nervous system vascular or infectious process otherwise. I would expect that his mental status should improve as his renal status and metabolic status improves. The small infarct identified is clinically nonsignificant. I would simply recommend aspirin 81 mg daily. He does have bilateral carotid artery stenosis which is asymptomatic at this time. I do not believe he would be a good surgical candidate. Stroke risk factor management would be paramount. I will reevaluate him at your request. Subjective Principal diagnosis: Delerium Interval history: Chart reviewed, patient seen, case discussed with family and hospitalist. Pt. was more confused yesterday, but improved to some extent today. Still has periods of somnolence and confusion consistnt with delerium. MRI reveals a punctate subcortical right frontal infarct, doubtful clinical significance. Doppler studies reveal bilateral carotid stenosis 60-79%. Recommend medical mgmt with ASA 81 mg.EEG consistent with mild/moderate generalized encephalopathy. No seizure activity. I suspect he may have had a symptomatic seizure, etiology multifactorial. Objective - Constitutional Vitals: Temp Pulse Resp BP Pulse Ox 98.5 F 83 16 102/58 99 04/01/16 11:32 04/01/16 11:32 04/01/16 11:32 04/01/16 11:32 04/01/16 11:32 - Neurological Exam Additional comments: Mental status assessment finds that he is somewhat somnolent, he will arouse briefly and will follow some commands and answer some questions verbally. However without constant stimulation quickly drifts off into unconsciousness. Cranial nerves II through XII are all intact. Motor exam finds no focal or lateralized deficits. He moves all 4 extremities freely. No involuntary movements are identifiable. Results - Laboratory Findings CBC and BMP: 04/01/16 05:37 04/01/16 05:37 Abnormal lab findings: Abnormal lab results WBC 19.3 K/mcL (4.3-11.1) H 04/01/16 05:37 RBC 2.69 M/mcL (4.19-5.50) L 04/01/16 05:37 Hgb 8.3 g/dL (12.9-16.9) L 04/01/16 05:37 Hct 25.8 % (37.5-50.1) L 04/01/16 05:37 Plt Count 592 K/mcL (140-400) H 04/01/16 05:37 Neutrophils # 16.6 K/mcL (1.6-8.9) H 04/01/16 05:37 PT 12.3 Seconds (9.4-12.1) H 03/19/16 16:48 ABG pCO2 50 mmHg (35-45) H 03/20/16 04:59 ABG HCO3 34.0 mEQ/L (21-27) H 03/20/16 04:59 ABG Total CO2 35.5 mEq/L (20-26) H 03/20/16 04:59 ABG Base Excess 8.8 mEq/L (-2.0 to 3.0) H 03/20/16 04:59 VBG pO2 89 mmHg (25-40) H 03/29/16 11:03 Potassium 4.8 mEq/L (3.5-4.5) H 04/01/16 05:37 BUN 75 mg/dL (8-26) H D 04/01/16 05:37 Creatinine 12.91 mg/dL (0.72-1.25) H 04/01/16 05:37 Est GFR ( Amer) 5 (> 60) L 04/01/16 05:37 Est GFR (Non-Af Amer) 4 (> 60) L 04/01/16 05:37 Glucose 235 mg/dL (70-99) H 04/01/16 05:37 POC Glucose 399 (58-89) H 04/01/16 11:12 Calculated Osmolality 316 (280-300) H 04/01/16 05:37 Uric Acid 8.7 mg/dL (3.5-7.2) H 04/01/16 05:37 Phosphorus 9.8 mg/dL (2.3-4.7) H 04/01/16 05:37 Transferrin 148 mg/dL (174-364) L 04/01/16 05:37 Ferritin 2127 ng/ml (22-275) H 04/01/16 05:37 Alkaline Phosphatase 181 Units/L (38-126) H 03/29/16 11:03 Troponin I 0.21 ng/mL (0-0.03) H* 03/19/16 14:13 Albumin 2.5 g/dL (3.5-5.0) L 04/01/16 05:37 Globulin 4.0 g/dL (2.4-3.5) H 03/29/16 11:03 Albumin/Globulin Ratio 0.6 (1.1-2.2) L 03/29/16 11:03 Prolactin 44.24 ng/mL (3.46-19.40) H 03/29/16 11:03 PTH Intact 844.2 pg/ml (8.5-72.5) H 04/01/16 05:37 Urine Clarity Cloudy (Clear) A 03/23/16 06:10 Urine Protein >=300 mg/dL (Neg-Trace) H 03/23/16 06:10 Urine Blood Moderate (Negative) H 03/23/16 06:10 Urine Microscopic RBC 5-15 per hpf (0-3) H 03/23/16 06:10 Urine Microscopic WBC 5-15 per hpf (0-3) H 03/23/16 06:10 Ur Squamous Epith Cells Many per lpf (None-Few) H 03/23/16 06:10 Urine Bacteria Many per hpf (None-Few) H 03/23/16 06:10 Ur Culture Indicated? YES (NO) A 03/23/16 06:10 Consult Discharge Plan - Plan Referrals: Jimi Santana MD [Primary Care Provider] - (patient will follow [facility] if [facility] decides to go to [facility] )
--- NOTE | 2016-04-01 14:51 | Internal Med Progress Note ---
Date of Encounter: 04/01/16 Time of Encounter: 14:48 - Assessment and plan (1) Ischemic stroke of frontal lobe Current Visit: Yes Status: Acute Assessment and plan: Small frontal lobe subcortical infarct. Does not appear to be causing any deficits. On aspirin and statin. (2) Seizure Current Visit: Yes Status: Suspected Assessment and plan: Not on any anticonvulsants. Encephalopathic pattern on EEG. (3) Altered mental state Current Visit: Yes Status: Acute Assessment and plan: Delirium likely due to underlying dementia and metabolic causes. Qualifiers: Qualified Code(s): R41.0 - Disorientation, unspecified (4) Acute respiratory failure requiring reintubation Current Visit: Yes Status: Resolved (5) Diabetes mellitus Current Visit: Yes Status: Acute Assessment and plan: Brittle diabetes. On subcutaneous Levemir and lispro. We will continue current insulin regimen for now and monitor blood sugars closely. 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 Qualifiers: Qualified Code(s): I10 - Essential (primary) hypertension (10) Cardiac arrest Current Visit: Yes Status: Resolved (11) Hyperkalemia Current Visit: Yes Status: Resolved (12) DVT prophylaxis Current Visit: Yes Status: Acute (13) UTI (urinary tract infection) due to Enterococcus Current Visit: Yes Status: Acute Assessment and plan: From VRE. On Zyvox. (14) Leukocytosis Current Visit: Yes Status: Acute Assessment and plan: Will get blood cultures. Chest x-ray does not show any infiltrate. Stool for C. difficile was negative. Qualifiers: Qualified Code(s): D72.828 - Other elevated white blood cell count - Subjective Interval history: Patient remains confused but better compared to yesterday. Seems to be more aware of his surroundings and is answering some questions more appropriately. Denies any complaints at this time. No longer requiring one-to-one sitter - Constitutional Vitals: Temp Pulse Resp BP Pulse Ox 98.5 F 83 16 102/58 99 04/01/16 11:32 04/01/16 11:32 04/01/16 11:32 04/01/16 11:32 04/01/16 11:32 General appearance: Present: cooperative, A&O X 1, no acute distress, answers questions appropriately - Respiratory Respiratory exam: Present: CTAB. Absent: accessory muscle use, rales, rhonchi, wheezes - Cardiovascular Cardiovascular exam: Present: RRR, +S1, +S2. Absent: diastolic murmur, gallop, rubs, systolic murmur - GI/Abdominal GI/Abdominal exam: Present: normal bowel sounds, soft, no peritoneal signs. Absent: distended, tenderness - Extremities Exam Extremities exam: Present: radial pulses palpable and symetrical. Absent: calf tenderness, cyanotic, pedal edema - Neurological Exam Neurological exam: Present: altered, no focal deficits, strengths equal and symetr throughout. Absent: facial droop, speech deficit - Skin Skin exam: Present: dry, intact Internal Medicine: Result - Labs CBC & Chem 7: 04/01/16 05:37 04/01/16 05:37 Labs: Short CBC 04/01/16 Range/Units 05:37 WBC 19.3 H (4.3-11.1) K/mcL Hgb 8.3 L (12.9-16.9) g/dL Hct 25.8 L (37.5-50.1) % Plt Count 592 H (140-400) K/mcL Neutrophils # 16.6 H (1.6-8.9) K/mcL BMP 04/01/16 05:37 Sodium 138 Potassium 4.8 H Chloride 100 Carbon Dioxide 19 BUN 75 H D Creatinine 12.91 H Glucose 235 H Calcium 9.4 Liver Function 04/01/16 Range/Units 05:37 Albumin 2.5 L (3.5-5.0) g/dL - ABG Interpretation ABG results: ABG ABG pH 7.44 pH Units (7.32-7.45) 03/20/16 04:59 ABG pCO2 50 mmHg (35-45) H 03/20/16 04:59 ABG pO2 85 mmHg (85-104) 03/20/16 04:59 ABG O2 Saturation 97 % (95-98) 03/20/16 04:59 PT/INR, D-dimer PT 12.3 Seconds (9.4-12.1) H 03/19/16 16:48 - Impressions Impressions Chest X-Ray 04/01/16 07:54 IMPRESSION: Significantly improved aeration in the lungs from prior exam following extubation. D/ / Richard Flores MD / Richard Flores MD Interpreting Provider: Richard Flores MD Consult Discharge Plan - Plan Referrals: Jimi Santana MD [Primary Care Provider] - (patient will follow [facility] if [facility] decides to go to [facility] ) - Attending Attestation This document has been at least partially created by [employer] recognition technology by Dr. Mays. Errors in grammar, wording or other phrases may exist. If errors are found after the documentation is signed, they will be addressed individually in the addendum section of this document when appropriate.
[2016-04-01] MEDS: Melatonin 3 MG TABLET PO SCH (21:39)
[2016-04-02 06:22] LABS: Basophils # 0.1 K/mcL (0.0-0.2); Basophils % 0.3 %; Eosinophils # 0.3 K/mcL (0.0-0.6); Eosinophils % 1.3 %; Hematocrit 26.7 % (37.5-50.1); Hemoglobin 8.5 g/dL (12.9-16.9); Immature Granulocytes % 0.8 % (0-4); Immature Platelets 2.6 % (1.1-6.1); Lymphocytes # 1.4 K/mcL (0.6-4.6); Lymphocytes % 7.2 %; Mean Corpuscular HGB Conc 31.8 g/dL (31.6-35.5); Mean Corpuscular Hemoglobin 31.1 pg (28.0-33.3); Mean Corpuscular Volume 97.8 fL (83.0-100.0); Mean Platelet Volume 10.5 fL (9.4-12.4); Monocytes # 1.2 K/mcL (0.0-1.3); Neutrophils # 16.6 K/mcL (1.6-8.9); Platelet Count 550 K/mcL (140-400); Red Blood Count 2.73 M/mcL (4.19-5.50); Segmented Neutrophils % 84.4 %
[2016-04-02] MEDS ORDERED: Diphenoxylate/Atropine 1 TAB TABLET PO ONE (06:27)
[2016-04-02 06:34] LABS: Calcium 9.4 mg/dL (8.6-10.8); Potassium 4.7 mEq/L (3.5-4.5)
[2016-04-02] MEDS: Aspirin Enteric Coated 81 MG Tablet PO SCH (07:59)
[2016-04-02] MEDS: *HR* Heparin 5,000 UNIT/ML VIAL SQ SCH ×2 (07:59→21:29)
[2016-04-02] MEDS: Lactobacillus 1 EACH CAP.SPRINK PO SCH ×2 (07:59→21:29)
[2016-04-02] MEDS: risperiDONE 0.25 MG TABLET PO SCH ×2 (08:00→21:30)
[2016-04-02] MEDS: Insulin DETEMIR 100 UNIT/ML X5UNITS SQ SCH ×2 (08:01→21:29)
[2016-04-02] MEDS: Levothyroxine 25 MCG TABLET PO SCH (08:01)
[2016-04-02] MEDS: Linezolid 600 MG TABLET PO SCH ×2 (08:01→21:30)
[2016-04-02] MEDS: Folic Acid 1 MG TABLET PO SCH (08:01)
[2016-04-02] MEDS: Insulin LISPRO 300 UNITS/3 ML VIAL SQ SCH ×8 (08:09→20:57)
[2016-04-02] MEDS: Thiamine (B-1) 100 MG TABLET PO SCH (08:11)
[2016-04-02] MEDS: Desitin (Zinc Oxide) 56 GM TUBE TP SCH ×3 (08:17→21:33)
[2016-04-02] MEDS ORDERED: 0.9 % Sodium Chloride 250 ML IV PRN (08:24)
[2016-04-02] MEDS ORDERED: 0.9 % Sodium Chloride 1,000 ML PRIME SCH (08:30)
--- NOTE | 2016-04-02 15:11 | Internal Med Progress Note ---
Date of Encounter: 04/02/16 Time of Encounter: 10:15 - Assessment and plan (1) Leukocytosis Current Visit: Yes Status: Acute Assessment and plan: Leukocytosis persists. Repeat blood cultures and urine cultures have been sent. Unclear source. On Zyvox for vancomycin-resistant enterococcus UTI. Moderate risk for complications. Qualifiers: Leukocytosis type: other Qualified Code(s): D72.828 - Other elevated white blood cell count (2) UTI (urinary tract infection) due to Enterococcus Current Visit: Yes Status: Acute Assessment and plan: Continue Zyvox. Will repeat urine culture. (3) Ischemic stroke of frontal lobe Current Visit: Yes Status: Acute Assessment and plan: Small subcortical frontal lobe infarct. On aspirin and statin. No focal deficits. (4) Seizure Current Visit: Yes Status: Ruled-out Assessment and plan: The patient does not appear to be having epileptic seizures. No indication for anti-epileptic agents. (5) Altered mental state Current Visit: Yes Status: Acute Assessment and plan: Stable. Due to underlying dementia. On risperidone. Qualifiers: Altered mental status type: delirium Qualified Code(s): R41.0 - Disorientation, unspecified (6) Acute respiratory failure requiring reintubation Current Visit: Yes Status: Resolved (7) Diabetes mellitus Current Visit: Yes Status: Acute Assessment and plan: Blood sugars remain elevated. Will increase pre-meal coverage. Follow blood sugars. 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 Nephrology following. (11) Hypertension Current Visit: Yes Status: Chronic Qualifiers: Hypertension type: essential hypertension Qualified Code(s): I10 - Essential (primary) hypertension (12) Cardiac arrest Current Visit: Yes Status: Resolved (13) Hyperkalemia Current Visit: Yes Status: Resolved (14) DVT prophylaxis Current Visit: Yes Status: Acute - Subjective Interval history: Patient seen in dialysis. Appears comfortable. Disoriented still. He is no longer requiring one-to-one sitter. Has been able to sleep well with risperidone. He has been having diarrhea. Hospital summary: 70-year-old male patient with history of end-stage renal disease was admitted after cardiac arrest with pulseless electrical activity with return to spontaneous circulation after 1 round of ACLS. Patient was intubated and admitted to the ICU. He was hyperkalemic on presentation and had missed dialysis. He was given 2 Amps of bicarbonate prior to transfer and then underwent hemodialysis here through a temporary dialysis catheter. Patient has a left AV fistula that was not functioning due to thrombosis. Since then he has been recovering. He was extubated and transferred to the floor and has continued to receive hemodialysis. His urine culture was positive for vancomycin-resistant enterococcus. This was repeated and the patient's repeat culture was also positive for the same organism. Assessment she was started on treatment with Zyvox. He did develop delirium and a CT scan of his head showed moderate brain atrophy suggestive of dementia. Most likely his delirium is due to critical illness and prolonged hospital stay along with sundowning. He has been treated for delirium with risperidone with some improvement in his symptoms. He was also having episodes of staring spells and neurology was consulted for this. The patient underwent an EEG which did not show any epileptic activity. He also underwent an MRI of the brain which showed a 5 mm small frontal lobe subcortical infarct. Patient is on aspirin and statin. Seems to be relatively benign finding. Patient is not having any focal deficits. Patient also underwent fistulogram and mechanical thrombectomy of his left upper extremity AV fistula and has been getting dialyzed through the AV fistula which is now functioning well. Clinically he has been getting better. His CBC shows an elevated WBC count. No source of infection. Chest x-ray shows no acute infiltrate. Repeat blood cultures, and urine cultures have been sent. Awaiting results. Currently patient is on Zyvox for VRE. - Constitutional Vitals: Temp Pulse Resp BP Pulse Ox 98.2 F 82 16 105/62 100 04/02/16 14:55 04/02/16 14:55 04/02/16 14:55 04/02/16 14:55 04/02/16 14:55 General appearance: Present: cooperative, A&O X 1, no acute distress, answers questions appropriately - Respiratory Respiratory exam: Present: CTAB. Absent: accessory muscle use, rales, rhonchi, wheezes - Cardiovascular Cardiovascular exam: Present: RRR, +S1, +S2. Absent: diastolic murmur, gallop, rubs, systolic murmur - GI/Abdominal GI/Abdominal exam: Present: normal bowel sounds, soft, no peritoneal signs. Absent: distended, tenderness - Extremities Exam Extremities exam: Present: warm, radial pulses palpable and symetrical. Absent : calf tenderness, cyanotic, pedal edema - Neurological Exam Neurological exam: Present: altered, no focal deficits. Absent: facial droop, speech deficit Internal Medicine: Result - Labs CBC & Chem 7: 04/02/16 05:50 04/02/16 06:01 Labs: Short CBC 04/02/16 Range/Units 05:50 WBC 19.7 H (4.3-11.1) K/mcL Hgb 8.5 L (12.9-16.9) g/dL Hct 26.7 L (37.5-50.1) % Plt Count 550 H (140-400) K/mcL Neutrophils # 16.6 H (1.6-8.9) K/mcL BMP 04/02/16 06:01 Sodium 137 Potassium 4.7 H Chloride 102 Carbon Dioxide 16 L BUN 90 H Creatinine 14.08 H Glucose 88 Calcium 9.4 - ABG Interpretation ABG results: ABG ABG pH 7.44 pH Units (7.32-7.45) 03/20/16 04:59 ABG pCO2 50 mmHg (35-45) H 03/20/16 04:59 ABG pO2 85 mmHg (85-104) 03/20/16 04:59 ABG O2 Saturation 97 % (95-98) 03/20/16 04:59 PT/INR, D-dimer PT 12.3 Seconds (9.4-12.1) H 03/19/16 16:48 Consult Discharge Plan - Plan Referrals: Jimi Santana MD [Primary Care Provider] - (patient will follow [facility] if [facility] decides to go to [facility] ) - Attending Attestation This document has been at least partially created by [employer] recognition technology by Dr. Mays. Errors in grammar, wording or other phrases may exist. If errors are found after the documentation is signed, they will be addressed individually in the addendum section of this document when appropriate.
--- NOTE | 2016-04-02 18:33 | Nephrology Progress Note ---
Date of Encounter: 04/02/16 Time of Encounter: 18:33 - Assessment and Plan (1) ESRD (end stage renal disease) on dialysis Current Visit: Yes Status: Chronic Continue Dialysis MWF. Adjust medication for renal function and provide a renal diet. (2) Hypertension Current Visit: Yes Status: Chronic Titrate antihypertensive medication as needed. BP currently controlled. Qualifiers: Hypertension type: essential hypertension Qualified Code(s): I10 - Essential (primary) hypertension (3) Insulin dependent diabetes mellitus Current Visit: Yes Status: Chronic Per primary team. (4) Anemia Current Visit: Yes Status: Acute Iron stores, vitamin b12 and folate are replete. Ferritin is greatly elevated. Monitor. Start Aranesp. Qualifiers: Qualified Code(s): D64.9 - Anemia, unspecified (5) Hyperphosphatemia Current Visit: Yes Status: Acute Provide phosphate binders and renal diet. PTH elevated. Vitamin D replacement ordered. Calcium at the upper limit of normal. (6) UTI (urinary tract infection) due to Enterococcus Current Visit: Yes Status: Acute VRE UTI. Could be contributing to confusion. Patient on linezolid. Consider repeat urine culture. (7) Ischemic stroke of frontal lobe Current Visit: Yes Status: Acute Likely cause of patient's confusion and possible seizure activity. Neurology following. Patient is more oriented today. Subjective Principal diagnosis: Delerium Interval history: Patient seen and evaluated on dialysis. He is alert. He knows he is at [facility] and that the year is 2016. His answers are more appropriate. He denies chest pain or other complaints. Objective - Vital Signs Vital signs: Vital Signs Temp Pulse Resp BP Pulse Ox 04/02/16 17:25 97.9 F 86 16 109/61 100 04/02/16 14:55 98.2 F 82 16 105/62 100 04/02/16 13:55 98 F 20 101/59 04/02/16 13:50 98/62 04/02/16 13:35 105/57 04/02/16 13:20 99/54 04/02/16 13:05 107/61 04/02/16 12:50 97/62 04/02/16 12:35 101/57 04/02/16 12:20 114/59 04/02/16 12:05 102/62 04/02/16 11:50 79/47 04/02/16 11:35 124/60 04/02/16 11:20 117/53 04/02/16 11:05 135/63 04/02/16 10:50 127/63 04/02/16 10:35 139/65 04/02/16 10:20 136/67 04/02/16 06:12 97.8 F 18 18 128/70 04/02/16 04:19 97.7 F 81 16 137/70 100 04/02/16 02:44 97.9 F 84 18 135/68 04/02/16 01:10 97.8 F 117 16 133/74 98 04/01/16 22:20 97.6 F 78 17 132/65 04/01/16 20:07 97.7 F 117 18 95/53 97 Intake and Output 04/02/16 04/02/16 04/02/16 07:59 15:59 23:59 Intake Total 480 / 480 Output Total 125 / 125 3179 / 3179 Balance -125 / -125 -2699 / -2699 Intake: Oral 480 / 480 Output: Urine 0 / 0 Total Dialysis Output 3179 / 3179 Urostomy 125 / 125 Other: Stool Size Large Stool Consistency liquid Stool Color Brown # Bowel Movements 2 Weight 86.6 kg 86.6 kg Blood Glucose* 103 196 Hemodialysis Net Fluid 2500 Removed (mL) Patient Weight 04/02/16 23:59 Weight 86.6 kg - General Appearance General appearance: Present: well-developed, well-nourished EENT: Present: ATNC Neck: Present: supple Respiratory: Present: no kyphosis Cardiology: Present: no edema, regular rate, regular rhythm Gastrointestinal: Present: normoactive bowel sounds, no tenderness Integumentary: Present: warm and dry Neurologic: Present: alert and oriented x3 Musculoskeletal: Present: no cyanosis Psychiatric: Present: mood/affect appropriate - Lab 04/02/16 05:50 04/02/16 06:01 Most recent lab results ABG pH 7.44 pH Units (7.32-7.45) 03/20/16 04:59 ABG pCO2 50 mmHg (35-45) H 03/20/16 04:59 ABG pO2 85 mmHg (85-104) 03/20/16 04:59 ABG HCO3 34.0 mEQ/L (21-27) H 03/20/16 04:59 ABG O2 Saturation 97 % (95-98) 03/20/16 04:59 Calcium 9.4 mg/dL (8.6-10.8) 04/02/16 06:01 Phosphorus 9.8 mg/dL (2.3-4.7) H 04/01/16 05:37 Magnesium 1.9 mg/dL (1.6-2.6) 04/01/16 05:37 Consult Discharge Plan - Plan Referrals: Jimi Santana MD [Primary Care Provider] - (patient will follow [facility] if [facility] decides to go to [facility] )
[2016-04-02 19:11] LABS: Adenovirus F 40/41 PCR Not detected (Not detect); Astrovirus PCR Not detected (Not detect); C.difficile Toxin A/B by PCR Not detected (Not detect); Campylobacter by PCR Not detected (Not detect); Cryptosporidium by PCR Not detected (Not detect); Cyclospora cayetanensis PCR Not detected (Not detect); E. coli O157 by PCR Not detected (Not detect); Entamoeba histolytica PCR Not detected (Not detect); Enteroaggregative E.coli(EAEC) Not detected (Not detect); Enteropathogenic E.coli(EPEC) Not detected (Not detect); Enterotoxigenic E.coli (ETEC) Not detected (Not detect); Giardia lamblia PCR Not detected (Not detect); Norovirus GI/GII PCR Not detected (Not detect); Plesiomonas shigelloides PCR Not detected (Not detect); Rotavirus A PCR Not detected (Not detect); Salmonella PCR Not detected (Not detect); Sapovirus PCR Not detected (Not detect); Shig/EnteroinvasiveE coli EIEC Not detected (Not detect); Shigalike tox-prod E coli STEC Not detected (Not detect); Vibrio PCR Not detected (Not detect); Vibrio cholerae PCR Not detected (Not detect); Yersinia enterocolitica PCR Not detected (Not detect)
[2016-04-02] MEDS: Melatonin 3 MG TABLET PO SCH (21:29)
[2016-04-02 22:37] LABS: ABG Base Excess 7.1 mEq/L (-2.0 to 3.0); ABG HCO3 31.3 mEQ/L (21-27); ABG Oxygen Saturation 95 % (95-98); ABG PCO2 42 mmHg (35-45); ABG PH 7.48 pH Units (7.32-7.45); ABG PO2 68 mmHg (85-104); ABG TCO2 32.6 mEq/L (20-26)
[2016-04-02 22:41] LABS: Blood Gas FiO2 30 %; Blood Gas Liter Flow 1.5 L/MIN
[2016-04-03 06:19] LABS: Basophils % 0.3 %; Eosinophils # 0.2 K/mcL (0.0-0.6); Eosinophils % 1.4 %; Hematocrit 22.7 % (37.5-50.1); Hemoglobin 7.7 g/dL (12.9-16.9); Immature Granulocytes % 0.6 % (0-4); Lymphocytes # 1.4 K/mcL (0.6-4.6); Lymphocytes % 10.3 %; Mean Corpuscular HGB Conc 33.9 g/dL (31.6-35.5); Mean Corpuscular Hemoglobin 32.2 pg (28.0-33.3); Mean Platelet Volume 10.7 fL (9.4-12.4); Monocytes # 1.1 K/mcL (0.0-1.3); Monocytes % 8.1 %; Neutrophils # 10.6 K/mcL (1.6-8.9); Platelet Count 443 K/mcL (140-400); Red Blood Count 2.39 M/mcL (4.19-5.50); Red Cell Distribution Width 13.8 % (11.5-14.5); Segmented Neutrophils % 79.3 %
[2016-04-03 06:30] LABS: Calcium 8.8 mg/dL (8.6-10.8); Potassium 4.2 mEq/L (3.5-4.5)
[2016-04-03] MEDS: Levothyroxine 25 MCG TABLET PO SCH (06:39)
[2016-04-03] MEDS: Insulin LISPRO 300 UNITS/3 ML VIAL SQ SCH ×7 (07:44→20:55)
[2016-04-03] MEDS: Folic Acid 1 MG TABLET PO SCH (07:57)
[2016-04-03] MEDS: Linezolid 600 MG TABLET PO SCH ×2 (07:58→20:54)
[2016-04-03] MEDS: Lactobacillus 1 EACH CAP.SPRINK PO SCH ×2 (07:58→20:54)
[2016-04-03] MEDS: Thiamine (B-1) 100 MG TABLET PO SCH (07:58)
[2016-04-03] MEDS: Aspirin Enteric Coated 81 MG Tablet PO SCH (07:58)
[2016-04-03] MEDS: Insulin DETEMIR 100 UNIT/ML X5UNITS SQ SCH (07:58)
[2016-04-03] MEDS: *HR* Heparin 5,000 UNIT/ML VIAL SQ SCH ×2 (07:58→20:54)
[2016-04-03] MEDS: Desitin (Zinc Oxide) 56 GM TUBE TP SCH ×3 (07:59→20:54)
[2016-04-03] MEDS: risperiDONE 0.25 MG TABLET PO SCH (08:08)
--- NOTE | 2016-04-03 08:17 | Event Note ---
Date of Encounter: 04/02/16 Time of Encounter: 21:00 I was called to evaluate Mr. Bourne for altered mental status. He had hemodialysis today and appears to be somnolent. He is arousable to sternal rub. He is nonverbal. His vital signs are stable. I obtained a stat head CT which reveals no acute intracranial abnormality. I obtained an ABG which shows no CO2 retention. After the CAT scan the patient's mental status has improved and he is awake, confused and not in distress. We will monitor mental status closely and avoid sedatives medications.
--- NOTE | 2016-04-03 09:50 | Nephrology Progress Note ---
Date of Encounter: 04/03/16 Time of Encounter: 09:48 - Assessment and Plan (1) ESRD (end stage renal disease) on dialysis Current Visit: Yes Status: Chronic Plan for HD tomorrow Avoid nephrotoxins if possible (2) Ischemic stroke of frontal lobe Current Visit: Yes Status: Acute per primary team concerned patient not getting physical therapy as ordered. Highly recommend P.T. (3) Insulin dependent diabetes mellitus Current Visit: Yes Status: Chronic per primary team Subjective Principal diagnosis: Delerium Interval history: Patient seen and examined. at bedside. Patient sitting up in chair and speaking very clearly, answers questions appropriately Objective - Vital Signs Vital signs: Vital Signs Temp Pulse Resp BP Pulse Ox 04/03/16 07:44 98.3 F 81 16 111/55 95 04/03/16 04:08 98.1 F 86 21 94/55 97 04/03/16 00:33 98.2 F 86 21 123/67 96 04/02/16 19:19 97.9 F 83 14 95/53 100 04/02/16 17:25 97.9 F 86 16 109/61 100 04/02/16 14:55 98.2 F 82 16 105/62 100 04/02/16 13:55 98 F 20 101/59 04/02/16 13:50 98/62 04/02/16 13:35 105/57 04/02/16 13:20 99/54 04/02/16 13:05 107/61 04/02/16 12:50 97/62 04/02/16 12:35 101/57 04/02/16 12:20 114/59 04/02/16 12:05 102/62 04/02/16 11:50 79/47 04/02/16 11:35 124/60 04/02/16 11:20 117/53 04/02/16 11:05 135/63 04/02/16 10:50 127/63 04/02/16 10:35 139/65 04/02/16 10:20 136/67 Intake and Output 04/02/16 04/03/16 04/03/16 23:59 07:59 15:59 Intake Total 0 / 0 120 / 120 240 / 240 Balance 0 / 0 120 / 120 240 / 240 Intake: Oral 0 / 0 120 / 120 240 / 240 Other: Meal Breakfast Percent of Meal Consumed 90% Stool Size Moderate Stool Consistency loose liquid Stool Color Brown # Bowel Movements 1 Weight 87.9 kg Blood Glucose* 137 57 Patient Weight 04/03/16 23:59 Weight 87.9 kg - General Appearance General appearance: Present: well-developed, well-nourished EENT: Present: ATNC, mucous membranes moist, hearing intact, vision intact Neck: Present: supple Cardiology: Present: no edema, regular rate, regular rhythm Dialysis Vascular Access: Arteriovenous Fistula Gastrointestinal: Present: no guarding Neurologic: Present: alert and oriented x3 Musculoskeletal: Present: deformities (weakness in right leg) Psychiatric: Present: mood/affect appropriate, cooperative - Lab 04/03/16 05:48 04/03/16 05:48 Most recent lab results ABG pH 7.48 pH Units (7.32-7.45) H 04/02/16 22:27 ABG pCO2 42 mmHg (35-45) 04/02/16 22:27 ABG pO2 68 mmHg (85-104) L 04/02/16 22:27 ABG HCO3 31.3 mEQ/L (21-27) H 04/02/16 22:27 ABG O2 Saturation 95 % (95-98) 04/02/16 22:27 Calcium 8.8 mg/dL (8.6-10.8) 04/03/16 05:48 Phosphorus 9.8 mg/dL (2.3-4.7) H 04/01/16 05:37 Magnesium 1.9 mg/dL (1.6-2.6) 04/01/16 05:37 Consult Discharge Plan - Plan Referrals: Jimi Santana MD [Primary Care Provider] - (patient will follow [facility] if [facility] decides [facility] go to [facility] )
[2016-04-03] MEDS ORDERED: risperiDONE 0.25 MG TABLET PO PRN (11:14)
--- NOTE | 2016-04-03 11:31 | Internal Med Progress Note ---
Date of Encounter: 04/03/16 Time of Encounter: 11:00 - Assessment and plan (1) Acute metabolic encephalopathy Current Visit: Yes Status: Acute Assessment and plan: Patient became very somnolent yesterday night likely secondary to risperidone and melatonin. CT head was negative for any acute process. ABG showed alkalosis. Stop melatonin, HIDA when necessary and Ativan when necessary. Risperidone to prn at bedtime. (2) UTI (urinary tract infection) due to Enterococcus Current Visit: Yes Status: Acute Assessment and plan: Patient with history of bladder cancer and has urostomy. 03/23 and 04/01: Negative blood cultures. 03/23 and 03/25 Urine cultures grew when necessary Continue Zyvox total of 10 days. Will repeat urine culture and check renal us. (3) ESRD (end stage renal disease) on dialysis Current Visit: Yes Status: Chronic Assessment and plan: 03/18/16: Patient missed dialysis due to AV fistula malfunctioning. temporary placement of dialysis catheter. Continue dialysis per usual schedule. Nephrology following. (4) Diabetes mellitus Current Visit: Yes Status: Acute Assessment and plan: Episodes of hyperglycemia and hypoglycemia due to oral intake being very erratic. BS this morning was 57. Received 20 units of LEvemir and accucheck at 11 am is 215. hold levemir at bedtime. sliding scale insulin. diabetic diet. 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 mellitus terminal operator insulin use: with intermediate use Chronic kidney disease stage: on chronic dialysis Qualified Code(s): E11.22 - Type 2 diabetes mellitus with diabetic chronic kidney disease; N18.6 - End stage renal disease; Z79.4 - intermediate teacher (current) use of insulin; Z99.2 - Dependence on renal dialysis (5) Cardiac arrest Current Visit: Yes Status: Resolved Assessment and plan: 03/18/16 s/p PEA with ROSC after one round of ACLS. secondary to pulmonary edema from fluid overload due to missed dialysis (6) Hyperkalemia Current Visit: Yes Status: Resolved Assessment and plan: Resolved. Patient on dialysis. (7) Ischemic stroke of frontal lobe Current Visit: Yes Status: Acute Assessment and plan: Small subcortical frontal lobe infarct. On aspirin and statin. No focal deficits. - Subjective Interval history: Patient was very sleepy overnight, CT head was negative. - Constitutional Vitals: Temp Pulse Resp BP Pulse Ox 98.3 F 81 16 111/55 95 04/03/16 07:44 04/03/16 07:44 04/03/16 07:44 04/03/16 07:44 04/03/16 07:44 General appearance: Present: cooperative, A&O X 1, pleasant, no acute distress, answers questions appropriately Exam: Patient is sitting on chair. He follows commands such as leaning forward, moving his legs. - Eye Eye exam: Present: PERRL, sclera anicteric - ENT ENT exam: Present: mucous membranes moist - Neck Neck exam general surgery: Present: supple, trachea midline. Absent: lymphadenopathy - Respiratory Respiratory exam: Present: CTAB - Cardiovascular Cardiovascular exam: Present: RRR - GI/Abdominal GI/Abdominal exam: Present: normal bowel sounds, soft. Absent: distended, tenderness Additional comments: urostomy tube in RLQ, clean urine. - Extremities Exam Extremities exam: Absent: pedal edema - Back Exam Back exam: Absent: CVA tenderness (L), CVA tenderness (R) - Neurological Exam Neurological exam: Present: alert, oriented X3, no focal deficits - Skin Skin exam: Absent: rash Internal Medicine: Result - Labs CBC & Chem 7: 04/03/16 05:48 04/03/16 05:48 Labs: Short CBC 04/03/16 Range/Units 05:48 WBC 13.4 H (4.3-11.1) K/mcL Hgb 7.7 L (12.9-16.9) g/dL Hct 22.7 L (37.5-50.1) % Plt Count 443 H (140-400) K/mcL Neutrophils # 10.6 H (1.6-8.9) K/mcL BMP 04/03/16 05:48 Sodium 139 Potassium 4.2 Chloride 100 Carbon Dioxide 26 BUN 47 H D Creatinine 9.27 H Glucose 42 L Calcium 8.8 - ABG Interpretation ABG results: ABG ABG pH 7.48 pH Units (7.32-7.45) H 04/02/16 22:27 ABG pCO2 42 mmHg (35-45) 04/02/16 22:27 ABG pO2 68 mmHg (85-104) L 04/02/16 22:27 ABG O2 Saturation 95 % (95-98) 04/02/16 22:27 PT/INR, D-dimer PT 12.3 Seconds (9.4-12.1) H 03/19/16 16:48 - Impressions Impressions Head CT 04/02/16 21:39 IMPRESSION: No acute intracranial abnormality. D/ / Eber Renee MD / Eber Renee MD Interpreting Provider: Ebre Renee MD Consult Discharge Plan - Plan Referrals: Jimi Santana MD [Primary Care Provider] - (patient will follow up [facility] p[facility] if patient decides to go to [facility] )
[2016-04-03] MEDS ORDERED: Acetaminophen 325 MG TABLET PO PRN (14:44)
[2016-04-03] MEDS ORDERED: risperiDONE 0.25 MG TABLET PO SCH (21:00)
[2016-04-04] MEDS ORDERED: 0.9 % Sodium Chloride 500 ML IVC ONE (00:01)
[2016-04-04 06:29] LABS: Hematocrit 22.3 % (37.5-50.1); Hemoglobin 7.2 g/dL (12.9-16.9); Mean Corpuscular HGB Conc 32.3 g/dL (31.6-35.5); Mean Corpuscular Hemoglobin 30.6 pg (28.0-33.3); Mean Corpuscular Volume 94.9 fL (83.0-100.0); Platelet Count 485 K/mcL (140-400); Red Blood Count 2.35 M/mcL (4.19-5.50); Red Cell Distribution Width 13.6 % (11.5-14.5)
[2016-04-04 06:43] LABS: Calcium 8.5 mg/dL (8.6-10.8); Potassium 4.8 mEq/L (3.5-4.5)
[2016-04-04] MEDS: *HR* Heparin 5,000 UNIT/ML VIAL SQ SCH (06:44)
[2016-04-04] MEDS: Lactobacillus 1 EACH CAP.SPRINK PO SCH (06:45)
[2016-04-04] MEDS: Aspirin Enteric Coated 81 MG Tablet PO SCH (06:45)
[2016-04-04] MEDS: Desitin (Zinc Oxide) 56 GM TUBE TP SCH ×2 (06:46→15:20)
[2016-04-04] MEDS: Linezolid 600 MG TABLET PO SCH (06:46)
[2016-04-04] MEDS: Folic Acid 1 MG TABLET PO SCH (06:46)
[2016-04-04] MEDS: Thiamine (B-1) 100 MG TABLET PO SCH (06:46)
[2016-04-04] MEDS: Levothyroxine 25 MCG TABLET PO SCH (06:46)
[2016-04-04] MEDS ORDERED: 0.9 % Sodium Chloride 250 ML IV PRN (08:05)
[2016-04-04] MEDS: Insulin LISPRO 300 UNITS/3 ML VIAL SQ SCH ×4 (08:55→15:20)
[2016-04-04] MEDS: Insulin DETEMIR 100 UNIT/ML X5UNITS SQ SCH (08:55)
--- NOTE | 2016-04-04 10:03 | Discharge Summary ---
Date of Encounter: 04/04/16 Time of Encounter: 09:30 - Discharge Diagnosis (1) Cardiac arrest Priority: Primary Status: Resolved (2) ESRD (end stage renal disease) on dialysis Priority: Secondary Status: Chronic (3) Pulmonary edema Priority: Primary Status: Acute Qualifiers: Chronicity: acute Qualified Code(s): J81.0 - Acute pulmonary edema (4) Fluid overload Priority: Primary Status: Acute Qualifiers: Hypervolemia type: unspecified Qualified Code(s): E87.70 - Fluid overload, unspecified (5) Sepsis Priority: Primary Status: Acute Comments: secondary to aspiration pneumonia. Qualifiers: Sepsis type: sepsis due to unspecified organism Qualified Code(s): A41.9 - Sepsis, unspecified organism (6) Aspiration pneumonia Priority: Primary Status: Acute Qualifiers: Aspiration pneumonia type: due to gastric secretions Laterality: bilateral Lung location: lower lobe of lung Qualified Code(s): J69.0 - Pneumonitis due to inhalation of food and vomit (7) UTI (urinary tract infection) due to Enterococcus Priority: Primary Status: Acute (8) Acute metabolic encephalopathy Priority: Primary Status: Acute (9) Ischemic stroke of frontal lobe Priority: Primary Status: Acute (10) Diabetes mellitus Priority: Secondary Status: Chronic 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 mellitus senior care insulin use: with senior care use Chronic kidney disease stage: on chronic dialysis Qualified Code(s): E11.22 - Type 2 diabetes mellitus with diabetic chronic kidney disease; N18.6 - End stage renal disease; Z79.4 - nursing home (current) use of insulin; Z99.2 - Dependence on renal dialysis (11) Hyperkalemia Priority: Primary Status: Resolved - Discharge Medications Prescriptions: Linezolid [Zyvox] 600 mg PO BID #4 tablet Home Medications: Aspirin [Lo-Dose Aspirin EC] 81 mg PO DAILY 03/18/16 [History] Ergocalciferol (VITAMIN D2) [Vitamin D2] 50,000 unit PO QWEEK 03/18/16 [History] Insulin ASPART [Novolog Flexpen] 12 - 14 unit SQ TID 03/18/16 [History] Levothyroxine [Synthroid] 25 mcg PO DAILY 03/18/16 [History] Omeprazole [PriLOSEC] 20 mg PO BID 03/18/16 [History] Simvastatin [Zocor] 40 mg PO HS 03/18/16 [History] Darbepoetin [Aranesp] 40 mcg SQ Titus@0900 syringe 04/04/16 [Rx] Desitin (Zinc Oxide) [Desitin] 1 appl TP TID tube 04/04/16 [Rx] Folic Acid 1 mg PO DAILY tablet 04/04/16 [Rx] Insulin DETEMIR [Levemir] 20 unit SQ QAM #0 04/04/16 [Rx] Lactobacillus [Culturelle] 1 each PO BID cap.sprink 04/04/16 [Rx] Linezolid [Zyvox] 600 mg PO BID #4 tablet 04/04/16 [Rx] Metoprolol [Lopressor] 50 mg PO BID tablet 04/04/16 [Rx] Sevelamer [Renvela] 1,600 mg PO TIDWM tablet 04/04/16 [Rx] Thiamine (B-1) [Vitamin B-1] 100 mg PO DAILY tablet 04/04/16 [Rx] Allergies/Adverse Reactions: Allergies Sulfa (Sulfonamide Antibiotics) Allergy (Severe, Verified 03/21/16 07:20) Anaphylaxis codeine Allergy (Unknown, Verified 03/19/16 07:08) See Comments UNSURE OF REACTION- LISTED ON PATIENT'S ECW Procedures/tests Complete & Pending: Procedures Performed prior 72 hours Category Date Time Status CT head/brain wo con [CT] Stat Cat Scan 04/02/16 21:39 Completed US retroperitoneal limited [US] Routine Exams 04/03/16 18:00 Completed Date of admission: 03/18/16 18:25 Primary care physician: Jimi Sadler Consults: 03/18/16 18:41 Consult to Physician [CONS] Routine Consulting Provider: Nicho Aguilera Reason for Consult: acute renal failure Call Completed: Yes 03/18/16 18:45 Consult to Critical Care [CONS] Stat Consulting Provider: [facility] Reason for Consult: acute respiratory failure, s/p cardiac arrest Call Completed: Yes 03/19/16 16:00 Consult to Cardiology [CONS] Routine Comment: Consulting Provider: Cardiology [facility] Reason for Consult: s/p cardiac arrest, Decreased ejection fraction Call Completed: Yes 03/22/16 13:25 Consult to Mechanical Intern [CONS] Routine Reason for SW Consult: Possible ECF placement. Possible resources for in the future. 03/23/16 05:30 Consult to Dialysis [CONS] ONCE 03/23/16 17:21 Consult to Speech Therapy [CONS] Routine Comment: Evaluate, develop and implement POC Reason for Consult: mental status change, slurred speech Call Completed: No 03/23/16 17:23 OT [Consult to Occupational Therapy] [CONS] Routine Comment: Evaluate, develop and implement POC 03/24/16 11:51 PT [Consult to Physical Therapy] [CONS] Routine Comment: Evaluate, develop and implement POC 03/26/16 09:00 Consult to Dialysis [CONS] ONCE 03/28/16 09:15 Consult to Dialysis [CONS] ONCE 03/30/16 09:30 Consult to Dialysis [CONS] ONCE 03/30/16 12:00 Consult to Neurology [CONS] Routine Consulting Provider: [facility] Reason for Consult: Patient with seizure like activity while on dialysis. Call Completed: No 03/30/16 13:46 Consult to Interpret Exam [CONS] Routine Consulting Provider: Peter Murrieta Consult to Interpret Exam: Interpret EEG 04/02/16 08:30 Consult to Dialysis [CONS] ONCE 04/04/16 08:15 Consult to Dialysis [CONS] ONCE - Patient Status Disposition: Transfer SNF Condition: Good Functional capacity at discharge: uses cane/walker Overall status at discharge: patient is progressing back to baseline - Discharge Instructions Follow Up With: Jimi Santana MD [Primary Care Provider] - (patient will follow up [facility] pcp if patient decides to go to [facility] ) - Diet and Activity Activity: as per physical therapy Diet: other (renal. diabetic. ) Interval History: Patient is sleeping but arouses to verbal stimuli. He has no complaints. Hospital course: Mr. Bourne is a 70 year old male with history of end-stage renal disease, DM, and history of bladder cancer with urostomy. 03/18/16 s/p PEA with ROSC after one round of ACLS. PEA likely secondary to pulmonary edema from fluid overload and hyperkalemia due to missed dialysis. Patient missed dialysis because of AV fistula malfunctioning due to thrombosis . Patient was intubated and admitted to the ICU. He was hyperkalemic on presentation and had missed dialysis. Patient underwent emergent placement of temporary dialysis catheter on admission and started on hemodialysis while in the ICU. Patient was treated for sepsis secondary to aspiration pneumonia and completed 5 days of IV Zosyn. Echocardiogram revealed LVEF 40%, this is likely secondary to cardiac arrest. He was extubated and transferred to the floor and has continued to receive hemodialysis. His urine culture was positive for vancomycin-resistant enterococcus, he was started on Zyvox. Renal ultrasound was unremarkable. He will complete a total of 10 days of Zyvox. Patient also underwent fistulogram and mechanical thrombectomy of his left upper extremity AV fistula and has been getting dialyzed through the AV fistula which is now functioning well. His hospital course was complicated by acute delirium and seizures secondary to electrolyte imbalance due to hemodialysis. CT scan of his head showed moderate brain atrophy suggestive of dementia. MRI of the brain which showed a 5 mm small frontal lobe subcortical infarct. Most likely his delirium is due to critical illness and prolonged hospital stay along with sundowning. He has been treated for delirium with risperidone with improvement of his symptoms. EEG which did not show any epileptic activity. His CBC shows an elevated WBC count. No source of infection. Chest x-ray shows no acute infiltrate. Repeat blood cultures, and urine cultures were negative. PLAN: He will complete a total of 10 days of Zyvox (end date 04/06/16 after morning dose). repeat echocardiogram in a month. - Time Spent with Patient Total time spent providing and/or coordinating discharge services: - Constitutional Vitals: Temp Pulse Resp BP Pulse Ox 98.5 F 96 16 127/62 95 04/04/16 07:27 04/04/16 07:27 04/04/16 07:27 04/04/16 07:27 04/04/16 07:27 General appearance: Present: cooperative, A&O X 1, pleasant, no acute distress, answers questions appropriately - Eye Eye exam: Present: PERRL, sclera anicteric - Neck Neck exam general surgery: Present: supple, trachea midline. Absent: lymphadenopathy - Respiratory Respiratory exam: Present: CTAB - Cardiovascular Cardiovascular exam: Present: RRR - GI/Abdominal GI/Abdominal exam: Present: normal bowel sounds, soft. Absent: distended, tenderness - Extremities Exam Extremities exam: Absent: pedal edema - Back Exam Back exam: Absent: CVA tenderness (L), CVA tenderness (R) - Neurological Exam Neurological exam: Present: alert. Absent: facial droop, speech deficit - Skin Skin exam: Absent: rash
--- NOTE | 2016-04-04 10:15 | Physician Discharge Referral ---
ExtendedCare Referral Info Transfer To: [facility] Provider in Charge: josefina Provider in Charge after Transfer: PCP Institutional Level of Care: Skilled - Diagnosis (1) Acute metabolic encephalopathy Status: Acute (2) UTI (urinary tract infection) due to Enterococcus Status: Acute (3) ESRD (end stage renal disease) on dialysis Status: Chronic (4) Diabetes mellitus Status: Chronic (5) Cardiac arrest Status: Resolved (6) Hyperkalemia Status: Resolved (7) Ischemic stroke of frontal lobe Status: Acute - Transfer Medications Prescriptions: Linezolid [Zyvox] 600 mg PO BID #4 tablet Home Medications: Aspirin [Lo-Dose Aspirin EC] 81 mg PO DAILY 03/18/16 [History] Ergocalciferol (VITAMIN D2) [Vitamin D2] 50,000 unit PO QWEEK 03/18/16 [History] Insulin ASPART [Novolog Flexpen] 12 - 14 unit SQ TID 03/18/16 [History] Levothyroxine [Synthroid] 25 mcg PO DAILY 03/18/16 [History] Omeprazole [PriLOSEC] 20 mg PO BID 03/18/16 [History] Simvastatin [Zocor] 40 mg PO HS 03/18/16 [History] Darbepoetin [Aranesp] 40 mcg SQ Titus@0900 syringe 04/04/16 [Rx] Desitin (Zinc Oxide) [Desitin] 1 appl TP TID tube 04/04/16 [Rx] Folic Acid 1 mg PO DAILY tablet 04/04/16 [Rx] Insulin DETEMIR [Levemir] 20 unit SQ QAM #0 04/04/16 [Rx] Lactobacillus [Culturelle] 1 each PO BID cap.sprink 04/04/16 [Rx] Linezolid [Zyvox] 600 mg PO BID #4 tablet 04/04/16 [Rx] Metoprolol [Lopressor] 50 mg PO BID tablet 04/04/16 [Rx] Sevelamer [Renvela] 1,600 mg PO TIDWM tablet 04/04/16 [Rx] Thiamine (B-1) [Vitamin B-1] 100 mg PO DAILY tablet 04/04/16 [Rx] Allergies/Adverse Reactions: Allergies Sulfa (Sulfonamide Antibiotics) Allergy (Severe, Verified 03/21/16 07:20) Anaphylaxis codeine Allergy (Unknown, Verified 03/19/16 07:08) See Comments UNSURE OF REACTION- LISTED ON PATIENT'S ECW - Respiratory Orders Smoking Cessation: Smoking cessation has been advised. For more information, call the [place] Tobacco Quit Line at 0-241-JQDE-NOW. - Advance Directives Code Status: Full Code - Mobility Orders Ambulate - Rehabiliation Orders Rehab Potential: Fair Rehab Orders: Evaluation for Physical Therapy, Evaluation for Occupational Therapy - Treatments Skin tear care topically daily PRN per policy - Diet Orders No Added Salt (ANDI), No Concentrated Sweets, Renal CERTIFICATION: I certify that the transfer of the above named patient to an Extended Care Facility is necessary for the continuing treatment of the diagnosis listed. The above information is true and accurate reflection of patient's current condition. Confidential - Redisclosure prohibited without a patient's written consent.
[2016-04-04] MEDS ORDERED: Acetaminophen 325 MG TABLET PO PRN (12:59)
--- NOTE | 2016-04-04 13:40 | Nephrology Progress Note ---
Date of Encounter: 04/04/16 Time of Encounter: 13:38 - Assessment and Plan (1) ESRD (end stage renal disease) on dialysis Current Visit: Yes Status: Chronic Continue Dialysis MWF. Adjust medication for renal function and provide a renal diet. (2) Hypertension Current Visit: Yes Status: Chronic Titrate antihypertensive medication as needed. BP currently controlled. Qualifiers: Hypertension type: essential hypertension Qualified Code(s): I10 - Essential (primary) hypertension (3) Insulin dependent diabetes mellitus Current Visit: Yes Status: Chronic Per primary team. (4) Anemia Current Visit: Yes Status: Acute Iron stores, vitamin b12 and folate are replete. Ferritin is greatly elevated. Monitor. Start Aranesp. Qualifiers: Qualified Code(s): D64.9 - Anemia, unspecified (5) Hyperphosphatemia Current Visit: Yes Status: Acute Provide phosphate binders and renal diet. PTH elevated. Vitamin D replacement ordered. Calcium at the upper limit of normal. (6) UTI (urinary tract infection) due to Enterococcus Current Visit: Yes Status: Acute VRE UTI. Could be contributing to confusion. Patient on linezolid. Consider repeat urine culture. (7) Ischemic stroke of frontal lobe Current Visit: Yes Status: Acute Likely cause of patient's confusion and possible seizure activity. Neurology following. Patient is more oriented today. Subjective Principal diagnosis: Delerium Interval history: Patient seen and evaluated. He knows he is at [facility] in [place] and that the year is 2016. His answers are more appropriate. He denies chest pain or other complaints. Objective - Vital Signs Vital signs: Vital Signs Temp Pulse Resp BP Pulse Ox 04/04/16 12:10 121/55 04/04/16 11:55 122/61 04/04/16 11:40 134/61 04/04/16 11:25 135/64 04/04/16 11:10 114/62 04/04/16 10:55 133/64 04/04/16 10:40 139/66 04/04/16 10:25 124/61 04/04/16 10:10 98.5 F 16 134/62 04/04/16 07:27 98.5 F 96 16 127/62 95 04/04/16 04:17 97.9 F 101 16 131/66 96 04/04/16 00:11 97.9 F 95 16 87/46 97 04/03/16 20:48 97.9 F 87 16 124/73 97 04/03/16 16:06 97.9 F 74 16 111/60 96 Intake and Output 04/03/16 04/04/16 04/04/16 23:59 07:59 15:59 Intake Total 600 / 600 Balance 600 / 600 Intake: Oral 0 / 0 Intake, Rinseback and 600 / 600 Flushes Other: Weight 88 kg Blood Glucose* 110 191 180 Hemodialysis Net Fluid 2062 Removed (mL) Patient Weight 04/04/16 23:59 Weight 88 kg - General Appearance General appearance: Present: well-developed, well-nourished EENT: Present: ATNC Neck: Present: supple Respiratory: Present: clear Cardiology: Present: no edema, regular rate, regular rhythm Integumentary: Present: warm and dry Neurologic: Present: alert and oriented x3 Musculoskeletal: Present: no cyanosis Psychiatric: Present: mood/affect appropriate - Lab 04/04/16 06:15 04/04/16 06:15 Most recent lab results ABG pH 7.48 pH Units (7.32-7.45) H 04/02/16 22:27 ABG pCO2 42 mmHg (35-45) 04/02/16 22:27 ABG pO2 68 mmHg (85-104) L 04/02/16 22:27 ABG HCO3 31.3 mEQ/L (21-27) H 04/02/16 22:27 ABG O2 Saturation 95 % (95-98) 04/02/16 22:27 Calcium 8.5 mg/dL (8.6-10.8) L 04/04/16 06:15 Phosphorus 9.8 mg/dL (2.3-4.7) H 04/01/16 05:37 Magnesium 1.9 mg/dL (1.6-2.6) 04/01/16 05:37 Consult Discharge Plan - Plan Referrals: Jimi Santana MD [Primary Care Provider] - (patient will follow up [facility] p[facility] if patient decides to go to [facility] ) Prescriptions: Linezolid [Zyvox] 600 mg PO BID #4 tablet
[2016-04-04 13:58] VITALS: BP 127/55
== END 2016-04-04 15:49 | DRG 853 ==
LOC: ICNU 18:25 → SUATTDRO 18:25 → 2ANU 03-22 15:32
PROVIDERS: ADMIT Internal Medicine; ATTEND Internal Medicine

== ENCOUNTER 2017-03-13 13:16 | Inpatient (IN) ==
[~2017-03-13 13:16] MED LIST: *HR* EPINEPHrine 1 MG/10 ML SYRINGE IVP ONE
[2017-03-13] MEDS ORDERED: *HR* Midazolam HCl 5 MG/ML VIAL IVP ONE (13:52)
[2017-03-13 14:02] LABS: Hematocrit 28.4 % (37.5-50.1); Hemoglobin 8.6 g/dL (12.9-16.9); Mean Corpuscular HGB Conc 30.3 g/dL (31.6-35.5); Mean Corpuscular Hemoglobin 30.7 pg (28.0-33.3); Mean Corpuscular Volume 101.4 fL (83.0-100.0); Mean Platelet Volume 10.8 fL (9.4-12.4); Platelet Count 462 K/mcL (140-400); Red Cell Distribution Width 16.1 % (11.5-14.5)
--- NOTE | 2017-03-13 14:04 | Emergency Department Note ---
Disposition Clinical Impression: Cardiopulmonary resuscitation (CPR)-only resuscitation status Altered mental status Qualifiers: Altered mental status type: coma Coma depth: [place] coma 3-8 Coma timing: in the field (EMT or ambulance) Qualified Code(s): R40.2431 - [place] coma scale score 3-8, in the field [EMT or ambulance] Disposition: Admitted As Inpatient CPR HPI - General Chief Complaint: ED Cardiac Arrest/CPR Stated Complaint: Full Arrest Time Seen by Provider: 03/13/17 13:21 Source: EMS Nursing Notes Reviewed: Yes Vital Signs Reviewed: Yes - History of Present Illness HPI Narrative: 71-year-old male brought in via EMS secondary to patient coding in route. EMS states patient was alert and oriented 3 when suddenly he went unresponsive. Their monitor showed PEA and they initiated CPR. Patient was being transferred from [facility] to [facility]. Patient has a history of respiratory failure ESRD on hemodialysis, A. fib, CAD, CVA, seizures, diabetes and bladder cancer as well as PE. Patient is not on anticoagulants - Related Data Home Medications Medication Instructions Recorded Confirmed Ergocalciferol (VITAMIN D2) 50,000 unit GTUBE SA 03/18/16 03/13/17 [Vitamin D2] Insulin ASPART [Novolog Flexpen] 8 unit SQ Q4H 03/18/16 03/13/17 Acetaminophen [Tylenol] 325 mg GTUBE Q6H PRN 03/13/17 03/13/17 Amiodarone [Cordarone] 200 mg GTUBE DAILY 03/13/17 03/13/17 Amlodipine Besylate 10 mg GTUBE DAILY 03/13/17 03/13/17 Buspirone HCl [Buspar] 15 mg GTUBE BID 03/13/17 03/13/17 Calcium Acetate [Phos-LO] 1,334 mg GTUBE TIDWM 03/13/17 03/13/17 Carvedilol 37.5 mg PO BIDWM 03/13/17 03/13/17 CloNIDine Patch [Catapres-TTS] 0.3 mg TD QWEEK 03/13/17 03/13/17 Darbepoetin Barron in Polysorbat 50 mcg SQ QWEEK 03/13/17 03/13/17 [Aranesp] Dextrose [Glucose] 33 gm PO ONCE PRN 03/13/17 03/13/17 Digoxin [Lanoxin] 0.125 mg PO Q72H 03/13/17 03/13/17 Diltiazem HCl [Cardizem] 60 mg GTUBE QID 03/13/17 03/13/17 Epoetin Barron [Procrit] 10,000 unit SQ ONCE PRN 03/13/17 03/13/17 Guaifenesin [Cough Syrup] 300 mg GTUBE BID 03/13/17 03/13/17 Hydralazine HCl 125 mg GTUBE Q8H 03/13/17 03/13/17 Insulin Glargine [Lantus] 25 unit SQ QAM 03/13/17 03/13/17 Insulin Regular Human [HumuLIN R] 0 - 16 unit SQ Q6H 03/13/17 03/13/17 Ipratropium/Albuterol Neb [Duoneb] 3 ml IH Q4H PRN 03/13/17 03/13/17 Labetalol 10 mg IV Q1H PRN 03/13/17 03/13/17 Lansoprazole susp *PEDS* [Prevacid 30 mg GTUBE DAILY 03/13/17 03/13/17 susp] Levothyroxine [Synthroid] 75 mcg GTUBE QAM 03/13/17 03/13/17 Lidocaine Patch [Lidoderm 5% patch] 1 each TP DAILY 03/13/17 03/13/17 Metoprolol Tartrate 10 mg IV Q6H 03/13/17 03/13/17 Nitroglycerin [Nitrostat] 0.4 mg SL Q5M PRN 03/13/17 03/13/17 Ondansetron HCl [Zofran] 4 mg PO Q6H PRN 03/13/17 03/13/17 Phenytoin [Dilantin] 100 mg GTUBE BID 03/13/17 03/13/17 Ehvcewrxhxgv-Owrp-Pjccnftz,Iso 2.25 gm IV Q6H 03/13/17 03/13/17 [Zosyn 2.25 gm/50 ml Galaxy Bag] Polyethylene Glycol 3350 [MiraLAX] 17 gm PO DAILY 03/13/17 03/13/17 Quetiapine Fumarate [SEROquel] 12.5 mg GTUBE DAILY 03/13/17 03/13/17 Quetiapine Fumarate [Seroquel] 50 mg GTUBE HS 03/13/17 03/13/17 Renal Vitamin [Renal Caps Softgel] 1 mg GTUBE DAILY 03/13/17 03/13/17 Sacubitril/Valsartan [Entresto 97 1 each GTUBE BID 03/13/17 03/13/17 mg-103 mg Tablet] Valproic Acid Oral Soln [Depakene 250 mg GTUBE BID 03/13/17 03/13/17 Oral Soln] clonazePAM [Klonopin] 0.25 mg GTUBE BID PRN 03/13/17 03/13/17 Allergies Allergy/AdvReac Type Severity Reaction Status Date / Time Sulfa (Sulfonamide Allergy Severe Anaphylaxis Verified 03/21/16 07:20 Antibiotics) codeine Allergy Unknown See Verified 03/19/16 07:08 Comments Limitations: ROS unobtainable due to patients medical condition CPR PMH - Past Medical History Medical history: Reports: cancer, CHF, coronary artery disease, diabetes, hypertension, myocardial infarction, renal disease Male Surgical history: Reports: cholecystectomy, vascular surgery Psychiatric history: Reports: no psych history - Social History Smoking Status: Never smoker Alcohol use: Reports: none Drug use: Reports: none Physical Exam Vital Signs Temperature 96.4 F L 03/13/17 13:19 Pulse Rate 104 03/13/17 13:19 Respiratory Rate 12 03/13/17 13:19 Blood Pressure 201/92 03/13/17 13:19 O2 Sat by Pulse Oximetry 93 03/13/17 13:19 Temperature 96.4 F L 03/13/17 13:19 Pulse Rate 104 03/13/17 13:19 Respiratory Rate 12 03/13/17 13:19 Blood Pressure 201/92 03/13/17 13:19 O2 Sat by Pulse Oximetry 93 03/13/17 13:19 Oxygen Delivery Oxygen Delivery Ambu Bag Patient unresponsive GCS of 3. Patient is in full arrest and CPR in progress for PEA, patient had ROSC 8 minutes after arrival. Patient was put on vent by respiratory therapist via tracheostomy - General General appearance: obtunded Course - Reevaluation(s) Reevaluation #1: Ordered versed and propofol Time: 14:24 Reevaluation #2: Central line placed in the right IJ. Post chest x-ray shows catheters and right spot. Time: 15:06 Reevaluation #3: Patient is heading down to CT scan Time: 15:57 - Consultations Consultation #1: Lab: elevated troponin level 0.12 Time: 14:24 Vital Signs Temperature 96.4 F L 03/13/17 13:19 Pulse Rate 104 03/13/17 13:19 Respiratory Rate 12 03/13/17 13:19 Blood Pressure 201/92 03/13/17 13:19 O2 Sat by Pulse Oximetry 93 03/13/17 13:19 Temperature 97.4 F L 03/13/17 18:15 Pulse Rate 75 03/13/17 23:57 Respiratory Rate 18 03/13/17 23:16 Blood Pressure 117/55 03/13/17 23:16 O2 Sat by Pulse Oximetry 97 03/13/17 23:16 Oxygen Delivery Oxygen Delivery Ventilator Procedures - Central Line Placement Right IJ Central Line Inserted*: Yes Central Line Catheter Replacement*: Yes Central Line Insertion: emergent Procedural Pause: verify patient name and date of , timeout performed per policy, javier and assess the site, assemble equipment and verify supplies, perform hand hygiene Patient Placed on Monitor/Pulse Ox: Yes During the Procedure: clinician is wearing sterile gloves, cap, mask,& gown during insertion, sterile field and sterile technique are maintained, patient's face is covered with drape or mask and wearing a cap, everyone in room is wearing a mask Prep the Procedure Site: apply chloraprep to the skin using a back and forth scrubbing motion, apply chloraprep for 30 seconds (upper body), 1-2 min ( femoral sites), allow prep to dry, drape the patient with a full body drape Local Anesthetic: lidocaine 1% Amount of anesthesia used (mL): 2 Ultrasound Used for Placement: Yes Central Line Lumen Inserted: triple Post Procedure: sutured in place, good blood return, all ports aspirated, flushed, capped, sterile dressing applied, guide wire removed and visualized, dressing is dated Post Procedure X-Ray: tip of catheter in good position Patient Tolerated Procedure: well, no complications Complications: none Cardiac Arrest/CPR - MDM Narrative Medical decision making narrative: Full rest: ACLS code Resuscitation via CPR with ROSC after 8 minutes of continuous CPR here plus what occurred in route. EMS gave 1 mg of epi and no other medications. Patient is still unresponsive. IV placed and right hand. Patient has a in tracheostomy in place. Stabilization will continue and patient will need to go the ICU. - Medical Records Medical records reviewed: Yes I reviewed the patient's medical records. Review of patient's medical records provided by EMS shows the patient has a past medical history for PE, CAD, CVA/stroke, A. fib, and seizures. - Lab Data Lab results reviewed: Yes I reviewed the patient's lab results. Lab results narrative: Short CBC 03/13/17 Range/Units 13:43 WBC 16.5 H (4.3-11.1) K/mcL Hgb 8.6 L (12.9-16.9) g/dL Hct 28.4 L (37.5-50.1) % Plt Count 462 H (140-400) K/mcL Neutrophils # 12.9 H (1.6-8.9) K/mcL BMP 03/13/17 Range/Units 13:43 Sodium 139 (136-145) mEq/L Potassium 4.1 (3.5-5.1) mEq/L Chloride 101 (98-107) mEq/L Carbon Dioxide 26 (23-29) mEq/L BUN 54 H (8-23) mg/dL Creatinine 4.49 H (0.70-1.30) mg/dL Glucose 347 H (70-105) mg/dL Calcium 9.3 (8.6-10.3) mg/dL Cardiac Enzymes 03/13/17 03/13/17 Range/Units 22:40 13:43 Troponin I 0.19 H* 0.12 H* (< 0.04) ng/mL Liver Function 03/13/17 Range/Units 13:43 Total Bilirubin 0.5 (0.3-1.0) mg/dL Direct Bilirubin 0.1 (0.0-0.2) mg/dL AST 34 (13-39) Units/L ALT 29 (7-52) Units/L Alkaline Phosphatase 331 H (34-104) Units/L Albumin 3.3 L (3.5-5.7) g/dL Result diagrams: 03/13/17 13:43 03/13/17 13:43 Lab Results 03/13/17 03/13/17 03/13/17 Range/Units 13:27 13:43 13:43 WBC 16.5 H (4.3-11.1) K/mcL RBC 2.80 L (4.19-5.50) M/mcL Hgb 8.6 L (12.9-16.9) g/dL Hct 28.4 L (37.5-50.1) % MCV 101.4 H (83.0-100.0) fL MCH 30.7 (28.0-33.3) pg MCHC 30.3 L (31.6-35.5) g/dL RDW 16.1 H (11.5-14.5) % Plt Count 462 H (140-400) K/mcL MPV 10.8 (9.4-12.4) fL Seg Neutrophils % 78.0 % Lymphocytes % 16.0 % Monocytes % 4.0 % Eosinophils % 2.0 % Neutrophils # 12.9 H (1.6-8.9) K/mcL Lymphocytes # 2.6 (0.6-4.6) K/mcL Monocytes # 0.7 (0.0-1.3) K/mcL Eosinophils # 0.3 (0.0-0.6) K/mcL Platelet Estimate Slight increase H (Normal) PT (9.4-12.1) Seconds INR APTT (26.0-36.0) Seconds Sodium (136-145) mEq/L Potassium (3.5-5.1) mEq/L Chloride (98-107) mEq/L Carbon Dioxide (23-29) mEq/L BUN (8-23) mg/dL Creatinine (0.70-1.30) mg/dL Est GFR ( Amer) (> 60) Est GFR (Non-Af Amer) (> 60) BUN/Creatinine Ratio (6-26) Glucose (70-105) mg/dL POC Glucose 348 H (58-89) Calculated Osmolality (280-300) Lactic Acid (0.5-2.2) mmol/L Calcium (8.6-10.3) mg/dL Phosphorus (2.7-4.5) mg/dL Magnesium (1.6-2.6) mg/dL Total Bilirubin (0.3-1.0) mg/dL Direct Bilirubin (0.0-0.2) mg/dL Indirect Bilirubin (0.0-1.2) mg/dL AST (13-39) Units/L ALT (7-52) Units/L Alkaline Phosphatase (34-104) Units/L Troponin I (< 0.04) ng/mL Serum Total Protein (6.4-8.9) g/dL Albumin (3.5-5.7) g/dL Globulin (2.4-3.5) g/dL Albumin/Globulin Ratio (1.1-2.2) Digoxin (0.8-2.0) ng/mL Phenytoin (10.0-20.0) mcg/mL Valproic Acid (50-100) mcg/mL Ethyl Alcohol (0-10) mg/dL Blood Type O POSITIVE Antibody Screen NEGATIVE 03/13/17 03/13/17 03/13/17 Range/Units 13:43 13:43 13:43 WBC (4.3-11.1) K/mcL RBC (4.19-5.50) M/mcL Hgb (12.9-16.9) g/dL Hct (37.5-50.1) % MCV (83.0-100.0) fL MCH (28.0-33.3) pg MCHC (31.6-35.5) g/dL RDW (11.5-14.5) % Plt Count (140-400) K/mcL MPV (9.4-12.4) fL Seg Neutrophils % % Lymphocytes % % Monocytes % % Eosinophils % % Neutrophils # (1.6-8.9) K/mcL Lymphocytes # (0.6-4.6) K/mcL Monocytes # (0.0-1.3) K/mcL Eosinophils # (0.0-0.6) K/mcL Platelet Estimate (Normal) PT 12.5 H (9.4-12.1) Seconds INR 1.2 APTT 36.4 H (26.0-36.0) Seconds Sodium 139 (136-145) mEq/L Potassium 4.1 (3.5-5.1) mEq/L Chloride 101 (98-107) mEq/L Carbon Dioxide 26 (23-29) mEq/L BUN 54 H (8-23) mg/dL Creatinine 4.49 H (0.70-1.30) mg/dL Est GFR ( Amer) 16 L (> 60) Est GFR (Non-Af Amer) 13 L (> 60) BUN/Creatinine Ratio 12 (6-26) Glucose 347 H (70-105) mg/dL POC Glucose (58-89) Calculated Osmolality 317 H (280-300) Lactic Acid (0.5-2.2) mmol/L Calcium 9.3 (8.6-10.3) mg/dL Phosphorus (2.7-4.5) mg/dL Magnesium (1.6-2.6) mg/dL Total Bilirubin 0.5 (0.3-1.0) mg/dL Direct Bilirubin 0.1 (0.0-0.2) mg/dL Indirect Bilirubin 0.4 (0.0-1.2) mg/dL AST 34 (13-39) Units/L ALT 29 (7-52) Units/L Alkaline Phosphatase 331 H (34-104) Units/L Troponin I 0.12 H* (< 0.04) ng/mL Serum Total Protein 7.0 (6.4-8.9) g/dL Albumin 3.3 L (3.5-5.7) g/dL Globulin 3.7 H (2.4-3.5) g/dL Albumin/Globulin Ratio 0.9 L (1.1-2.2) Digoxin (0.8-2.0) ng/mL Phenytoin (10.0-20.0) mcg/mL Valproic Acid (50-100) mcg/mL Ethyl Alcohol < 10 (0-10) mg/dL Blood Type Antibody Screen 03/13/17 03/13/17 03/13/17 Range/Units 13:43 13:43 14:18 WBC (4.3-11.1) K/mcL RBC (4.19-5.50) M/mcL Hgb (12.9-16.9) g/dL Hct (37.5-50.1) % MCV (83.0-100.0) fL MCH (28.0-33.3) pg MCHC (31.6-35.5) g/dL RDW (11.5-14.5) % Plt Count (140-400) K/mcL MPV (9.4-12.4) fL Seg Neutrophils % % Lymphocytes % % Monocytes % % Eosinophils % % Neutrophils # (1.6-8.9) K/mcL Lymphocytes # (0.6-4.6) K/mcL Monocytes # (0.0-1.3) K/mcL Eosinophils # (0.0-0.6) K/mcL Platelet Estimate (Normal) PT (9.4-12.1) Seconds INR APTT (26.0-36.0) Seconds Sodium (136-145) mEq/L Potassium (3.5-5.1) mEq/L Chloride (98-107) mEq/L Carbon Dioxide (23-29) mEq/L BUN (8-23) mg/dL Creatinine (0.70-1.30) mg/dL Est GFR ( Amer) (> 60) Est GFR (Non-Af Amer) (> 60) BUN/Creatinine Ratio (6-26) Glucose (70-105) mg/dL POC Glucose 352 H (58-89) Calculated Osmolality (280-300) Lactic Acid (0.5-2.2) mmol/L Calcium (8.6-10.3) mg/dL Phosphorus (2.7-4.5) mg/dL Magnesium (1.6-2.6) mg/dL Total Bilirubin (0.3-1.0) mg/dL Direct Bilirubin (0.0-0.2) mg/dL Indirect Bilirubin (0.0-1.2) mg/dL AST (13-39) Units/L ALT (7-52) Units/L Alkaline Phosphatase (34-104) Units/L Troponin I (< 0.04) ng/mL Serum Total Protein (6.4-8.9) g/dL Albumin (3.5-5.7) g/dL Globulin (2.4-3.5) g/dL Albumin/Globulin Ratio (1.1-2.2) Digoxin 0.5 L (0.8-2.0) ng/mL Phenytoin 1.0 L (10.0-20.0) mcg/mL Valproic Acid 14 L (50-100) mcg/mL Ethyl Alcohol (0-10) mg/dL Blood Type Antibody Screen 03/13/17 03/13/17 Range/Units 15:34 15:34 WBC (4.3-11.1) K/mcL RBC (4.19-5.50) M/mcL Hgb (12.9-16.9) g/dL Hct (37.5-50.1) % MCV (83.0-100.0) fL MCH (28.0-33.3) pg MCHC (31.6-35.5) g/dL RDW (11.5-14.5) % Plt Count (140-400) K/mcL MPV (9.4-12.4) fL Seg Neutrophils % % Lymphocytes % % Monocytes % % Eosinophils % % Neutrophils # (1.6-8.9) K/mcL Lymphocytes # (0.6-4.6) K/mcL Monocytes # (0.0-1.3) K/mcL Eosinophils # (0.0-0.6) K/mcL Platelet Estimate (Normal) PT (9.4-12.1) Seconds INR APTT (26.0-36.0) Seconds Sodium (136-145) mEq/L Potassium (3.5-5.1) mEq/L Chloride (98-107) mEq/L Carbon Dioxide (23-29) mEq/L BUN (8-23) mg/dL Creatinine (0.70-1.30) mg/dL Est GFR ( Amer) (> 60) Est GFR (Non-Af Amer) (> 60) BUN/Creatinine Ratio (6-26) Glucose (70-105) mg/dL POC Glucose (58-89) Calculated Osmolality (280-300) Lactic Acid 0.9 (0.5-2.2) mmol/L Calcium (8.6-10.3) mg/dL Phosphorus 4.1 (2.7-4.5) mg/dL Magnesium 2.2 (1.6-2.6) mg/dL Total Bilirubin (0.3-1.0) mg/dL Direct Bilirubin (0.0-0.2) mg/dL Indirect Bilirubin (0.0-1.2) mg/dL AST (13-39) Units/L ALT (7-52) Units/L Alkaline Phosphatase (34-104) Units/L Troponin I (< 0.04) ng/mL Serum Total Protein (6.4-8.9) g/dL Albumin (3.5-5.7) g/dL Globulin (2.4-3.5) g/dL Albumin/Globulin Ratio (1.1-2.2) Digoxin (0.8-2.0) ng/mL Phenytoin (10.0-20.0) mcg/mL Valproic Acid (50-100) mcg/mL Ethyl Alcohol (0-10) mg/dL Blood Type Antibody Screen - Radiology Data Radiology results reviewed: Yes I reviewed the patient's radiology results. Head CT 03/13/17 13:21 IMPRESSION: Persistent cortical atrophy and chronic small vessel disease. No obvious acute intracranial hemorrhage. If there is clinical suspicion for hypoxic ischemic injury, please consider further evaluation with MRI. D/ / Benjamin Edwards MD / Benjamin Edwards MD Interpreting Provider: Benjamin Edwards MD Chest X-Ray 03/13/17 14:54 IMPRESSION: 1. Satisfactory position of the newly placed right IJ central line in the SVC. 2. Extensive bilateral airspace disease, likely due to pulmonary edema and/or ARDS. Underlying pneumonia is not excluded. 3. Small right pleural effusion. D/ / Surinder Fowler MD / Surinder Fowler MD Interpreting Provider: Surinder Fowler MD Chest CT 03/13/17 16:05 IMPRESSION: Diffuse airspace disease bilaterally along with bilateral pleural effusions. Pulmonary edema is favored. D/ / Donovan Sue / Donovan Sue Interpreting Provider: Donovan Sue - EKG Data EKG attestation: Yes I reviewed and interpreted this EKG. EKG results narrative: EKG taken 03/13/2017 at 1321 hours shows sinus tachycardia at a rate of 104 beats a minute with T-wave inversion in lead 2, V3 and V4 V5 and V6. Patient has a change in waveform when compared to previous EKG taken every 2016. No ST elevations or depressions in any leads on either EKG. Critical Care Time Critical Care Time: Yes Total Critical Care Time: 40 Attestation: Critical care performed: Time is exclusive of separately billable procedures. Time includes: direct patient care, patient reassessment, coordination of patient care, interpretation of data (laboratory data, radiology data, and respiratory data), review of patient's medical records, medical consultation and documentation of patient care. Procedures included in critical care time: Procedures excluded from critical care time: Attestation Statement - Attestation Attestation: I examined this patient and my medical decision-making was reviewed with the Resident Physician. I agree with the documented findings, disposition and treatment plan as described except to the extent set forth below. Patient presents to the ED in full arrest. Patient was being transported from [facility] to [facility] [place] [address]. 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 Patient had been undergoing 2 minutes of CPR arrival here. He received one epinephrine. With limited in PE 8 entire time. Upon first pulse check here patient had a pulse. On examination he was unresponsive. Trach present in anterior neck. Symmetric breath sounds. Rhonchi. Plan. Patient had an IO placed in the right humerus. I did call and speak to his nurse at [facility]. Patient is a dialysis patient with his last episode of dialysis this morning. 1500 mL's were removed. He had been at [facility] for a few days trying to wean him from the ventilator unsuccessfully. He is vent dependent at night. His trach has been present for years for chronic respiratory failure. His workup here shows pneumonia. He has an elevated white blood cell count. At one point he did drop his blood pressure. A central line was placed. The patient will be septic shock criteria. His blood pressure stable at this time without any pressors. The patient is admitted to ICU. Sepsis Reassessment Note - Evaluation Current Stage of Sepsis: septic shock Possible Source of Sepsis: pulmonary - Focused Exam Date of Encounter: 03/13/17 Time of Encounter: 16:40 Vital Signs: Vital Signs Temp Pulse Resp BP Pulse Ox 03/13/17 15:49 74 16 91/69 100 03/13/17 15:26 70 14 75/39 100 03/13/17 14:53 88 14 96/52 98 03/13/17 14:44 91 12 164/75 100 03/13/17 14:21 87 22 92/46 100 03/13/17 14:11 12 93 03/13/17 13:58 112 24 175/94 95 03/13/17 13:19 96.4 F L 104 12 201/92 93 Respiratory Exam: Present: rhonchi Cardiovascular Exam: Present: RRR Capillary Refill: > 2 seconds Peripheral Pulse Strength: 2+ slightly diminished Peripheral Pulse Location: Radial Skin Exam: pale - Reassessment Comments Comments: Patient's blood pressure is stable at this time without any pressors. He is accepted to the ICU. His blood pressure drop was likely secondary to propofol use.
[2017-03-13] MEDS ORDERED: Propofol 500 MG/50 ML INFUS..BTL ONE (14:05)
[2017-03-13 14:06] LABS: INR 1.2; Prothrombin Time 12.5 Seconds (9.4-12.1)
[2017-03-13 14:08] LABS: Activated Partial Thrombo Time 36.4 Seconds (26.0-36.0)
[2017-03-13 14:12] LABS: Albumin 3.3 g/dL (3.5-5.7); Bilirubin,Direct 0.1 mg/dL (0.0-0.2); Bilirubin,Indirect 0.4 mg/dL (0.0-1.2); Bilirubin,Total 0.5 mg/dL (0.3-1.0); Calcium 9.3 mg/dL (8.6-10.3); Carbon Dioxide 26 mEq/L (23-29); Chloride 101 mEq/L (98-107); Potassium 4.1 mEq/L (3.5-5.1); Sodium 139 mEq/L (136-145)
[2017-03-13 14:18] LABS: Alanine Aminotransferase 29 Units/L (7-52); Albumin/Globulin Ratio 0.9 (1.1-2.2); Alkaline Phosphatase 331 Units/L (34-104); Aspartate Amino Transferase 34 Units/L (13-39); BUN/Creatinine Ratio 12 (6-26); Blood Urea Nitrogen 54 mg/dL (8-23); Globulin 3.7 g/dL (2.4-3.5); Glucose 347 mg/dL (70-105); Osmolality,Calculated 317 (280-300); eGFR For African Americans 16 (> 60); eGFR For Non-African Americans 13 (> 60)
[2017-03-13 14:20] LABS: Eosinophils # 0.3 K/mcL (0.0-0.6)
[2017-03-13 14:21] LABS: Lymphocytes # 2.6 K/mcL (0.6-4.6); Monocytes # 0.7 K/mcL (0.0-1.3); Neutrophils # 12.9 K/mcL (1.6-8.9)
[2017-03-13 14:24] LABS: Digoxin 0.5 ng/mL (0.8-2.0)
[2017-03-13] MEDS: Propofol 500 MG/50 ML INFUS..BTL IVC SCH (14:24)
[2017-03-13 14:25] LABS: Ethanol < 10 mg/dL (0-10)
[2017-03-13] MEDS ORDERED: *HR* Midazolam HCl 2 MG/2 ML VIAL ONE (14:40)
[2017-03-13] MEDS ORDERED: *HR* Midazolam HCl 2 MG/2 ML VIAL IVP ONE (14:50)
[2017-03-13] MEDS ORDERED: 0.9 % Sodium Chloride 1,000 ML IVC ONE ×2 (15:20→15:31)
[2017-03-13] MEDS ORDERED: Piperacillin/Tazobactam 3.375 GM in Water for inj. (sterile) 20 ML IVP ONE (15:20)
[2017-03-13] MEDS ORDERED: Levofloxacin 750 MG/150 ML 750 MG/150 ML BAG IVPB ONE (15:20)
[2017-03-13] MEDS ORDERED: Vancomycin 1,250 MG in D5% in Water 250 ML IVPB ONE ×2 (15:20→20:00)
[2017-03-13 16:21] LABS: Magnesium 2.2 mg/dL (1.6-2.6); Phosphorous 4.1 mg/dL (2.7-4.5)
--- NOTE | 2017-03-13 16:37 | Pulmonology History & Physical ---
<Oc Love - Last Filed: 03/13/17 17:09> Date of Encounter: 03/13/17 Time of Encounter: 16:34 Assessment and Plan (1) Cardiac arrest Current visit: Yes Status: Acute The patient was being transported and noted to be in PEA arrest without pulses and received 2 rounds of CPR with one dose of epinephrine. Unknown etiology at the time but patient does have past history of cardiac arrest with spontaneous. There may be some underlying associated with septic shock associated with the patient's pneumonia that he is currently being treated for versus some sort of cardiomyopathy versus cardiac failure. We will perform echocardiogram, obtain a BNP, check electrolytes, check sputum, blood, urine cultures. We will consult neurology as well with conservative for possible seizure-like activity. A CT of the chest will be obtained as well. (2) Acute respiratory failure Current visit: No Status: Acute Patient is on a ventilator chronically. There was numerous attempts to try to wean patient from the ventilator but there has been no success. Prior to arrival to [facility] emergency department the patient was a roughly on 100% FiO2 with a PEEP of 10. Qualifiers: Respiratory failure complication: hypoxia Qualified Code(s): J96.01 - Acute respiratory failure with hypoxia (3) Pulmonary edema Current visit: No Status: Acute Unknown etiology of patient's pulmonary edema. We will obtain a echocardiogram as well as a blood gas. There may be a component of ARDS versus cardiac dysfunction. We will continue to monitor. The patient will be maintained on ARDS protocols at this time. Qualifiers: Chronicity: acute Qualified Code(s): J81.0 - Acute pulmonary edema (4) Pneumonia Current visit: Yes Status: Acute Likely healthcare associated pneumonia. We will begin the patient on broad- spectrum antibiotic's accordingly. Blood, sputum, urine cultures will be obtained. Qualifiers: Pneumonia type: due to unspecified organism Laterality: bilateral Lung location: unspecified part of lung Qualified Code(s): J18.9 - Pneumonia, unspecified organism (5) PEA (Pulseless electrical activity) Current visit: No Status: Resolved (6) History of seizure disorder Current visit: Yes Status: Acute (7) Insulin dependent diabetes mellitus Current visit: No Status: Chronic (8) ESRD (end stage renal disease) on dialysis Current visit: No Status: Chronic History of Present Illness Chief complaint: PEA arrest HPI: Mr. Bourne is a 71 year old male with past history of intracranial hemorrhage associated with any trauma, left-sided deficits, tracheostomy, arrives to [facility] emergency department after being transported to an ECF from a stepdown rehabilitation facility. In route to the ECF via patient lost pulses. The performed 2 rounds of CPR and administered 1 dose of epinephrine prior to arrival to the emergency department. The patient was continued on CPR here in the emergency department but obtained return of spontaneous circulation prior to any further medications. The patient was on a ventilator with tracheostomy. In addition the patient was noted to be mildly hypotensive. A central line was placed in the right IJ. In the emergency department the patient was noted to have pulmonary edema versus ARDS versus underlying pneumonia. The patient's family states that he is currently being treated for an underlying pneumonia prior to the transport today. They are unsure of the antibiotics. The patient when visualize is following intermittent commands and is purposeful and some movements. He apparently was coherent prior to this episode and was able to converse with family prior to code. The patient previously had spontaneous cardiac arrest roughly 1 year ago with the patient was admitted to the hospital and resuscitated. The patient went home and returned back to baseline prior to a fall from a wheelchair roughly 4 months ago which was the etiology of his intracranial hemorrhage and subsequent left- sided deficits. The patient is an ESRD patient on dialysis. Past Med Surg Social Fam HX - Past Medical History Source: old records reviewed, obtained from family Medical history: cancer, CHF, coronary artery disease, CVA (Intracranial hemorrhage secondary to fall), diabetes, hypertension, myocardial infarction, renal disease, sudden cardiac Psychiatric history: no psych history - Past Surgical History Surgical History: cholecystectomy, vascular surgery, other (Tracheostomy) - Social History Smoking Status: Never smoker Smokeless Tobacco Status: No Alcohol use: none Drug use: none Current living situation: ECF Medications and Allergies Ergocalciferol (VITAMIN D2) [Vitamin D2] 50,000 unit GTUBE SA 03/18/16 [History] Insulin ASPART [Novolog Flexpen] 8 unit SQ Q4H 03/18/16 [History] Acetaminophen [Tylenol] 325 mg GTUBE Q6H PRN 03/13/17 [History] Amiodarone [Cordarone] 200 mg GTUBE DAILY 03/13/17 [History] Amlodipine Besylate 10 mg GTUBE DAILY 03/13/17 [History] Buspirone HCl [Buspar] 15 mg GTUBE BID 03/13/17 [History] Calcium Acetate [Phos-LO] 1,334 mg GTUBE TIDWM 03/13/17 [History] Carvedilol 37.5 mg PO BIDWM 03/13/17 [History] CloNIDine Patch [Catapres-TTS] 0.3 mg TD QWEEK 03/13/17 [History] Darbepoetin Barron in Polysorbat [Aranesp] 50 mcg SQ QWEEK 03/13/17 [History] Dextrose [Glucose] 33 gm PO ONCE PRN 03/13/17 [History] Digoxin [Lanoxin] 0.125 mg PO Q72H 03/13/17 [History] Diltiazem HCl [Cardizem] 60 mg GTUBE QID 03/13/17 [History] Epoetin Barron [Procrit] 10,000 unit SQ ONCE PRN 03/13/17 [History] Guaifenesin [Cough Syrup] 300 mg GTUBE BID 03/13/17 [History] Hydralazine HCl 125 mg GTUBE Q8H 03/13/17 [History] Insulin Glargine [Lantus] 25 unit SQ QAM 03/13/17 [History] Insulin Regular Human [HumuLIN R] 0 - 16 unit SQ Q6H 03/13/17 [History] Ipratropium/Albuterol Neb [Duoneb] 3 ml IH Q4H PRN 03/13/17 [History] Labetalol 10 mg IV Q1H PRN 03/13/17 [History] Lansoprazole susp *PEDS* [Prevacid susp] 30 mg GTUBE DAILY 03/13/17 [History] Levothyroxine [Synthroid] 75 mcg GTUBE QAM 03/13/17 [History] Lidocaine Patch [Lidoderm 5% patch] 1 each TP DAILY 03/13/17 [History] Metoprolol Tartrate 10 mg IV Q6H 03/13/17 [History] Nitroglycerin [Nitrostat] 0.4 mg SL Q5M PRN 03/13/17 [History] Ondansetron HCl [Zofran] 4 mg PO Q6H PRN 03/13/17 [History] Phenytoin [Dilantin] 100 mg GTUBE BID 03/13/17 [History] Uacfhdsrdulw-Dueb-Zfpcnpmb,Iso [Zosyn 2.25 gm/50 ml Galaxy Bag] 2.25 gm IV Q6H 03/13/17 [History] Polyethylene Glycol 3350 [MiraLAX] 17 gm PO DAILY 03/13/17 [History] Quetiapine Fumarate [SEROquel] 12.5 mg GTUBE DAILY 03/13/17 [History] Quetiapine Fumarate [Seroquel] 50 mg GTUBE HS 03/13/17 [History] Renal Vitamin [Renal Caps Softgel] 1 mg GTUBE DAILY 03/13/17 [History] Sacubitril/Valsartan [Entresto 97 mg-103 mg Tablet] 1 each GTUBE BID 03/13/17 [ History] Valproic Acid Oral Soln [Depakene Oral Soln] 250 mg GTUBE BID 03/13/17 [History] clonazePAM [Klonopin] 0.25 mg GTUBE BID PRN 03/13/17 [History] 3 Allergy/AdvReac Type Severity Reaction Status Date / Time Sulfa (Sulfonamide Allergy Severe Anaphylaxis Verified 03/21/16 07:20 Antibiotics) codeine Allergy Unknown See Verified 03/19/16 07:08 Comments ROS unobtainable: due to mental status All Systems: A 10-system review of systems was performed and is negative for pertinent findings except as documented above in the HPI. Physical Examination Vital Signs: Vital Signs, Last 4 Hours Temp Pulse Resp BP Pulse Ox 03/13/17 15:49 74 16 91/69 100 03/13/17 15:26 70 14 75/39 100 03/13/17 14:53 88 14 96/52 98 03/13/17 14:44 91 12 164/75 100 03/13/17 14:21 87 22 92/46 100 03/13/17 14:11 12 93 03/13/17 13:58 112 24 175/94 95 03/13/17 13:19 96.4 F L 104 12 201/92 93 General appearance: other (Patient intermittently follows commands but is currently sedated and on a ventilator through a tracheostomy.) Eyes: nonicteric ENT: other (Tracheostomy midline without any overt bleeding. No discharge but a large amount of secretions from tracheostomy site.) Effort: normal Auscultation: bilateral: diminished breath sounds (With coarse breath sounds bilaterally.), rales Cardiovascular: regular rate and rhythm Gastrointestinal: soft, non-distended Integumentary: other (Patient has chronic wounds ulcerations bilateral lower extremities.) Extremities: no cyanosis, other (Pulses bilaterally what appears to be baseline for the patient with peripheral vascular disease versus chronic atrophy.) other (Patient has some purposeful movements and is able to squeeze his right hand on command. Patient is otherwise intermittently somnolent but he is currently sedated.) Results - Laboratory Findings CBC and BMP: 03/13/17 13:43 03/13/17 13:43 PT/INR, D-dimer PT 12.5 Seconds (9.4-12.1) H 03/13/17 13:43 Abnormal lab findings: Abnormal lab results WBC 16.5 K/mcL (4.3-11.1) H 03/13/17 13:43 RBC 2.80 M/mcL (4.19-5.50) L 03/13/17 13:43 Hgb 8.6 g/dL (12.9-16.9) L 03/13/17 13:43 Hct 28.4 % (37.5-50.1) L 03/13/17 13:43 MCV 101.4 fL (83.0-100.0) H 03/13/17 13:43 MCHC 30.3 g/dL (31.6-35.5) L 03/13/17 13:43 RDW 16.1 % (11.5-14.5) H 03/13/17 13:43 Plt Count 462 K/mcL (140-400) H 03/13/17 13:43 Neutrophils # 12.9 K/mcL (1.6-8.9) H 03/13/17 13:43 Platelet Estimate Slight increase (Normal) H 03/13/17 13:43 PT 12.5 Seconds (9.4-12.1) H 03/13/17 13:43 APTT 36.4 Seconds (26.0-36.0) H 03/13/17 13:43 BUN 54 mg/dL (8-23) H 03/13/17 13:43 Creatinine 4.49 mg/dL (0.70-1.30) H 03/13/17 13:43 Est GFR ( Amer) 16 (> 60) L 03/13/17 13:43 Est GFR (Non-Af Amer) 13 (> 60) L 03/13/17 13:43 Glucose 347 mg/dL (70-105) H 03/13/17 13:43 POC Glucose 348 (58-89) H 03/13/17 13:27 Calculated Osmolality 317 (280-300) H 03/13/17 13:43 Alkaline Phosphatase 331 Units/L (34-104) H 03/13/17 13:43 Troponin I 0.12 ng/mL (< 0.04) H* 03/13/17 13:43 Albumin 3.3 g/dL (3.5-5.7) L 03/13/17 13:43 Globulin 3.7 g/dL (2.4-3.5) H 03/13/17 13:43 Albumin/Globulin Ratio 0.9 (1.1-2.2) L 03/13/17 13:43 Digoxin 0.5 ng/mL (0.8-2.0) L 03/13/17 13:43 Phenytoin 1.0 mcg/mL (10.0-20.0) L 03/13/17 13:43 Valproic Acid 14 mcg/mL (50-100) L 03/13/17 13:43 - Attending Attestation I examined this patient and my medical decision-making was reviewed with the Resident Physician. I agree with the documented findings, disposition and treatment plan as described except to the extent set forth below. <Roney Irwin - Last Filed: 03/13/17 21:58> Date of Encounter: 03/13/17 History of Present Illness HPI: Mr. Bourne is a 71 year old male All Systems: A 10-system review of systems was performed and is negative for pertinent findings except as documented above in the HPI. Physical Examination Vital Signs: Vital Signs, Last 4 Hours Temp Pulse Resp BP Pulse Ox 03/13/17 20:12 23 100 03/13/17 20:00 66 18 118/57 100 03/13/17 19:48 18 133/63 100 03/13/17 18:25 69 03/13/17 18:15 97.4 F L 82 24 148/68 100 03/13/17 18:10 16 126/65 Results - Laboratory Findings CBC and BMP: 03/13/17 13:43 03/13/17 13:43 ABG ABG pH 7.40 pH Units (7.32-7.45) 03/13/17 17:13 ABG pCO2 43 mmHg (35-45) 03/13/17 17:13 ABG pO2 105 mmHg (85-104) H 03/13/17 17:13 ABG O2 Saturation 98 % (95-98) 03/13/17 17:13 PT/INR, D-dimer PT 12.5 Seconds (9.4-12.1) H 03/13/17 13:43 Abnormal lab findings: Abnormal lab results WBC 16.5 K/mcL (4.3-11.1) H 03/13/17 13:43 RBC 2.80 M/mcL (4.19-5.50) L 03/13/17 13:43 Hgb 8.6 g/dL (12.9-16.9) L 03/13/17 13:43 Hct 28.4 % (37.5-50.1) L 03/13/17 13:43 MCV 101.4 fL (83.0-100.0) H 03/13/17 13:43 MCHC 30.3 g/dL (31.6-35.5) L 03/13/17 13:43 RDW 16.1 % (11.5-14.5) H 03/13/17 13:43 Plt Count 462 K/mcL (140-400) H 03/13/17 13:43 Neutrophils # 12.9 K/mcL (1.6-8.9) H 03/13/17 13:43 Platelet Estimate Slight increase (Normal) H 03/13/17 13:43 PT 12.5 Seconds (9.4-12.1) H 03/13/17 13:43 APTT 36.4 Seconds (26.0-36.0) H 03/13/17 13:43 ABG pO2 105 mmHg (85-104) H 03/13/17 17:13 ABG Total CO2 28 mEq/L (20-26) H 03/13/17 17:13 BUN 54 mg/dL (8-23) H 03/13/17 13:43 Creatinine 4.49 mg/dL (0.70-1.30) H 03/13/17 13:43 Est GFR ( Amer) 16 (> 60) L 03/13/17 13:43 Est GFR (Non-Af Amer) 13 (> 60) L 03/13/17 13:43 Glucose 347 mg/dL (70-105) H 03/13/17 13:43 POC Glucose 352 (58-89) H 03/13/17 14:18 Calculated Osmolality 317 (280-300) H 03/13/17 13:43 Alkaline Phosphatase 331 Units/L (34-104) H 03/13/17 13:43 Troponin I 0.12 ng/mL (< 0.04) H* 03/13/17 13:43 Albumin 3.3 g/dL (3.5-5.7) L 03/13/17 13:43 Globulin 3.7 g/dL (2.4-3.5) H 03/13/17 13:43 Albumin/Globulin Ratio 0.9 (1.1-2.2) L 03/13/17 13:43 Digoxin 0.5 ng/mL (0.8-2.0) L 03/13/17 13:43 Phenytoin 1.0 mcg/mL (10.0-20.0) L 03/13/17 13:43 Valproic Acid 14 mcg/mL (50-100) L 03/13/17 13:43 - Attending Attestation I saw and evaluated this patient and my medical decision-making was reviewed with the Resident Physician. I agree with the documented findings, disposition and treatment plan as described except to the extent set forth below. We independently had [id number] contact with the patient I spent of 32 minutes of Critical Care time with this patient. It involved decision making of high complexity to assess, manipulate, and support vital organ system failure and/or to prevent further life threatening deterioration of the patient's condition. The time involved in the performance of separately reportable procedures was not counted toward critical care time. Patient seen and examined at bedside Labs, radiology, chart personally reviewed. BUSINESS REPRESENTATIVE:Patient is spontaneously opening his eyes has history of intracranial bleed has history of seizure disorder has some purposeful movements post witnessed arrest no need of hypothermic protocol BUSINESS REPRESENTATIVE failure can be due to hypoxic injury Vs Absence status Vs Metabolic encephalopathy . Will get EEG and Consult Neurology Pulm:Patient is now in acute on chronic respiratory failure supported by tracheostomy bilateral air space disease with bilateral pleural effusion concern for pulmonary edema vs pneumonia lung protective ventilation will continue PEEP therapy Cards:: Will get ECHO concern for pulmonary edema patient had cardiac arrest in the past will look of LV function , Pulmonary hypertension will trend troponins CT chest concern for pulmonary edema will need fluid removal with dialysis FEN-GI:NPO Renal: Chronic Kidney disease Nephrology consult will need Hemodiafiltration in the context of pulmonary edema ID:To cover with broad spectrum antibiotics for pneumonia coverage high risk for MDRO Heme/Onc:Labs reviewed monitor Hb Endo: Glucose Monitored Integ/MSK: Skin Care per routine ICU Nursing Protocol to prevent ulcers. Lines: All lines examined without evidence of infection : Dispo: Critically ill high chance of circulatory failure CODE: Full Code
[2017-03-13] MEDS ORDERED: Lacri-Lube 3.5 GM TUBE BOTH EYES PRN (16:47)
[2017-03-13] MEDS ORDERED: Dextrose Gel 15 GM/37.5 ML TUBE PO PRN ×2 (16:58)
[2017-03-13] MEDS ORDERED: *HR* Dextrose 50 % in Water (Syg) 50 ML SYRINGE IVP PRN (16:58)
[2017-03-13] MEDS ORDERED: D5% in Water 1,000 ML IVC PRN (16:58)
[2017-03-13] MEDS ORDERED: Vancomycin 1,250 MG in D5% in Water 250 ML IVPB SCH (17:00)
[2017-03-13 17:17] LABS: ABG Base Excess 2 mEq/L (-2 to 3); ABG HCO3 27 mEq/L (21-27); ABG Oxygen Saturation 98 % (95-98); ABG PCO2 43 mmHg (35-45); ABG PO2 105 mmHg (85-104); ABG TCO2 28 mEq/L (20-26)
[2017-03-13] MEDS ORDERED: *HR* Midazolam HCl 5 MG/5 ML VIAL IVP ONE ×2 (18:05→18:06)
--- NOTE | 2017-03-13 18:13 | Cardiology Consult Note ---
Date of Encounter: 03/13/17 Time of Encounter: 18:02 Assessment and Plan (1) Cardiopulmonary resuscitation (CPR)-only resuscitation status Current Visit: Yes Status: Acute 71 y/o male presents after reported PEA arrest and 10 minutes of ACLS. Chronic tracheostomy, currently connected to ventilatory. Prior history of similar presentation in 03/2016 - PEA arrest, hyperkalemia at that time. TTE at that time demonstrated an LVEF of 40-45%. Mild troponin elevation noted. No acute ECG changes noted. Agree with TTE. Preliminary CT demonstrates pleural effusions. ? respiratory issues/hypoxia triggering PEA event. Currently hemodynamics appear stable. No compelling indication for aggressive cardiac intervention at this time. Further recommendations to follow. Discussion w patient/family: The assessment and plan as outlined above was discussed with the patient and/or family members who expressed understanding and agreement. All questions were answered. Thank you for involving us in the care of your patient. Please call with any questions. History of Present Illness Consult date: 03/13/17 Requesting physician: Alexi Oneill Consult reason: Cardiopulmonary arrest Chief complaint: Cardiopulmonary arrrest History of present illness: Mr. Bourne is a 71 year old male with a history who presents via EMS with a reported CPA. Per reports, it was a PEA arrest. According to ER resident, patient received 10 minutes of CPR with return of pulse. ECG reviewed - no acute ST-T changes. Patient was being transferred to an ECF when event occurred. Past medical history significant for tracheostomy, prior trauma with intra- cranial hemorrhage, reported chronic left sided deficits, ESRD on HD. Labs reviewed. CT head - no acute changes. CT chest - preliminary findings, significant pleural effusions bilaterally. Past Med Surg Social Fam HX - Past Medical History Medical history: cancer, CHF, coronary artery disease, diabetes, hypertension, myocardial infarction, renal disease Psychiatric history: no psych history - Past Surgical History Surgical History: cholecystectomy, vascular surgery - Social History Smoking Status: Never smoker Smokeless Tobacco Status: No Alcohol use: none Drug use: none Medications and Allergies Ergocalciferol (VITAMIN D2) [Vitamin D2] 50,000 unit GTUBE SA 03/18/16 [History] Insulin ASPART [Novolog Flexpen] 8 unit SQ Q4H 03/18/16 [History] Acetaminophen [Tylenol] 325 mg GTUBE Q6H PRN 03/13/17 [History] Amiodarone [Cordarone] 200 mg GTUBE DAILY 03/13/17 [History] Amlodipine Besylate 10 mg GTUBE DAILY 03/13/17 [History] Buspirone HCl [Buspar] 15 mg GTUBE BID 03/13/17 [History] Calcium Acetate [Phos-LO] 1,334 mg GTUBE TIDWM 03/13/17 [History] Carvedilol 37.5 mg PO BIDWM 03/13/17 [History] CloNIDine Patch [Catapres-TTS] 0.3 mg TD QWEEK 03/13/17 [History] Darbepoetin Barron in Polysorbat [Aranesp] 50 mcg SQ QWEEK 03/13/17 [History] Dextrose [Glucose] 33 gm PO ONCE PRN 03/13/17 [History] Digoxin [Lanoxin] 0.125 mg PO Q72H 03/13/17 [History] Diltiazem HCl [Cardizem] 60 mg GTUBE QID 03/13/17 [History] Epoetin Barron [Procrit] 10,000 unit SQ ONCE PRN 03/13/17 [History] Guaifenesin [Cough Syrup] 300 mg GTUBE BID 03/13/17 [History] Hydralazine HCl 125 mg GTUBE Q8H 03/13/17 [History] Insulin Glargine [Lantus] 25 unit SQ QAM 03/13/17 [History] Insulin Regular Human [HumuLIN R] 0 - 16 unit SQ Q6H 03/13/17 [History] Ipratropium/Albuterol Neb [Duoneb] 3 ml IH Q4H PRN 03/13/17 [History] Labetalol 10 mg IV Q1H PRN 03/13/17 [History] Lansoprazole susp *PEDS* [Prevacid susp] 30 mg GTUBE DAILY 03/13/17 [History] Levothyroxine [Synthroid] 75 mcg GTUBE QAM 03/13/17 [History] Lidocaine Patch [Lidoderm 5% patch] 1 each TP DAILY 03/13/17 [History] Metoprolol Tartrate 10 mg IV Q6H 03/13/17 [History] Nitroglycerin [Nitrostat] 0.4 mg SL Q5M PRN 03/13/17 [History] Ondansetron HCl [Zofran] 4 mg PO Q6H PRN 03/13/17 [History] Phenytoin [Dilantin] 100 mg GTUBE BID 03/13/17 [History] Njyelkzpnyzu-Xkfu-Sbsfseii,Iso [Zosyn 2.25 gm/50 ml Galaxy Bag] 2.25 gm IV Q6H 03/13/17 [History] Polyethylene Glycol 3350 [MiraLAX] 17 gm PO DAILY 03/13/17 [History] Quetiapine Fumarate [SEROquel] 12.5 mg GTUBE DAILY 03/13/17 [History] Quetiapine Fumarate [Seroquel] 50 mg GTUBE HS 03/13/17 [History] Renal Vitamin [Renal Caps Softgel] 1 mg GTUBE DAILY 03/13/17 [History] Sacubitril/Valsartan [Entresto 97 mg-103 mg Tablet] 1 each GTUBE BID 03/13/17 [ History] Valproic Acid Oral Soln [Depakene Oral Soln] 250 mg GTUBE BID 03/13/17 [History] clonazePAM [Klonopin] 0.25 mg GTUBE BID PRN 03/13/17 [History] 3 Allergy/AdvReac Type Severity Reaction Status Date / Time Sulfa (Sulfonamide Allergy Severe Anaphylaxis Verified 03/21/16 07:20 Antibiotics) codeine Allergy Unknown See Verified 03/19/16 07:08 Comments ROS unobtainable: due to endotracheal tube Physical Examination General: Other Neck: No JVD, Normal carotid pulses Cardiac: Reg Rate and Rhythm, Normal S1 and S2, No Murmur Lungs: Other (Ventilator, clear breath sounds anteriorly) Neuro: Other (s/p CPA. ) Skin: No rashes noted on visualized skin Musculoskeletal: Other Extremities: No Clubbing, No Cyanosis, No Edema Results 03/13/17 13:43 03/13/17 13:43 - Imaging and Cardiology Echo: pending, report reviewed (Previous report reviewed.) - EKG Interpretation EKG results cardiology: personally reviewed Consult Discharge Plan - Plan Referrals: NONE,PCP [Primary Care Provider] -
[2017-03-13] MEDS: FentaNYL (PF) 1,000 MCG in 0.9 % Sodium Chloride 80 ML IVC SCH (18:44)
[2017-03-13] MEDS: Cefepime HCl 1,000 MG in Water for inj. (sterile) 10 ML IVP SCH (19:09)
[2017-03-13] MEDS: Insulin LISPRO 300 UNITS/3 ML VIAL SQ SCH (19:10)
[2017-03-13] MEDS: Ipratropium/Albuterol Neb 3 ML IH SCH ×2 (19:48→23:16)
[2017-03-13] MEDS: Lacri-Lube 3.5 GM TUBE BOTH EYES SCH (23:11)
[2017-03-13] MEDS: Dexmedetomidine HCl 400 MCG/100 ML MLS IVC SCH (23:40)
[2017-03-14] MEDS ORDERED: Cefepime HCl 1,000 MG in D5% in Water (Mini-Bag+) 100 ML IVPB SCH
[2017-03-14] MEDS: Chlorhexidine Rinse 15 ML MOUTHWASH MM SCH ×3 (00:35→22:30)
[2017-03-14] MEDS: Lacri-Lube 3.5 GM TUBE BOTH EYES SCH ×6 (00:37→19:29)
[2017-03-14] MEDS: Insulin LISPRO 300 UNITS/3 ML VIAL SQ SCH ×5 (00:37→19:48)
[2017-03-14 01:05] LABS: Hepatitis B Surface Antigen Nonreactive (Nonreactive)
[2017-03-14 02:21] LABS: Hepatitis B Surface Antibody 7.75 mIU/mL
[2017-03-14 03:24] LABS: Adenovirus Not Detected (Not Detect); Bordetella Pertussis Not Detected (Not Detect); Chlamydophila pneumoniae Not Detected (Not Detect); Coronavirus 229E Not Detected (Not Detect); Coronavirus HKU1 Not Detected (Not Detect); Coronavirus NL63 Not Detected (Not Detect); Coronavirus OC43 Not Detected (Not Detect); Human Metapneumovirus Not Detected (Not Detect); Human Rhinovirus/Enterovirus Not Detected (Not Detect); Influenza A Subtype 2009 H1 Not Detected (Not Detect); Influenza A Untypeable Not Detected (Not Detect); Influenza B Not Detected (Not Detect); Mycoplasma pneumoniae Not Detected (Not Detect); Parainfluenza Virus 1 Not Detected (Not Detect); Parainfluenza Virus 2 Not Detected (Not Detect); Parainfluenza Virus 3 Not Detected (Not Detect); Parainfluenza Virus 4 Not Detected (Not Detect); Respiratory Syncytial Virus Not Detected (Not Detect)
[2017-03-14] MEDS: Ipratropium/Albuterol Neb 3 ML IH SCH ×5 (04:04→20:19)
[2017-03-14 04:28] LABS: ABG Base Excess 3 mEq/L (-2 to 3); ABG HCO3 27 mEq/L (21-27); ABG Oxygen Saturation 88 % (95-98); ABG PCO2 41 mmHg (35-45); ABG PH 7.43 pH Units (7.32-7.45); ABG PO2 54 mmHg (85-104); ABG TCO2 29 mEq/L (20-26); Blood Gas Modality VC; Blood Gas PEEP 5 cm H2O; Blood Gas Respiration Rate 18; Blood Gas VT 500 cc
[2017-03-14 05:19] LABS: Calcium 8.6 mg/dL (8.6-10.3); Potassium 3.8 mEq/L (3.5-5.1)
[2017-03-14 05:51] LABS: Basophils # 0.1 K/mcL (0.0-0.2); Basophils % 0.5 %; Eosinophils # 0.2 K/mcL (0.0-0.6); Eosinophils % 1.6 %; Hematocrit 20.1 % (37.5-50.1); Hemoglobin 6.3 g/dL (12.9-16.9); Immature Granulocytes % 1.3 % (0-4); Lymphocytes # 1.2 K/mcL (0.6-4.6); Lymphocytes % 10.7 %; Mean Corpuscular HGB Conc 31.3 g/dL (31.6-35.5); Monocytes # 0.9 K/mcL (0.0-1.3); Monocytes % 8.7 %; Neutrophils # 8.3 K/mcL (1.6-8.9); Nucleated Red Blood Cells 0.2 /100 WBC (0); Platelet Count 263 K/mcL (140-400); Red Blood Count 2.03 M/mcL (4.19-5.50); Red Cell Distribution Width 15.9 % (11.5-14.5); Segmented Neutrophils % 77.2 %
[2017-03-14] MEDS: Cefepime HCl 1,000 MG in Water for inj. (sterile) 10 ML IVP SCH ×2 (06:21→18:15)
[2017-03-14] MEDS: Dexmedetomidine HCl 400 MCG/100 ML MLS IVC SCH (08:03)
[2017-03-14 08:59] LABS: Hematocrit 20.4 % (37.5-50.1); Hemoglobin 6.4 g/dL (12.9-16.9)
--- NOTE | 2017-03-14 09:14 | Neurology - Consult Note ---
<Peter Leary - Last Filed: 03/14/17 13:36> Date of Encounter: 03/14/17 Time of Encounter: 09:07 Assessment and Plan (1) Acute metabolic encephalopathy Current Visit: No Status: Acute Etiology of the patient's encephalopathy is unclear at this time, likely metabolic or medication induced. He does appear to follow simple verbal commands and will open his eyes spontaneously to verbal stimuli that is improving as sedation is weaned off. Given the patient's seizure history and subtherapeutic antiepileptic levels nonconvulsive status epilepticus was also considered but EEG did not support this. No focal deficits are noted at this time however the exam is somewhat limited given the patient's mental status. We would recommend restarting his home antiepileptic drugs, given his low phenytoin levels will give a loading dose of 750 mg now and continue his regular home dose in the morning. We will defer further management of toxic encephalopathy including possible infection, hypoxia to the ICU team. (2) Seizure Current Visit: No Status: Chronic As above (3) Cardiac arrest Current Visit: Yes Status: Acute History of Present Illness Chief complaint: Cardiac Arrest HPI: Mr. Bourne is a 71 year old male with history of seizure disorder, ESRD, tracheostomy with chronic ventilator support who presented after PEA cardiac arrest. Patient is sedated at this time she was somewhat limited. History is obtained from the medical record and discussions with the ICU team. The patient was being transported from [facility] in [place] to [place] and in route was found to go into cardiac arrest with pulseless electrical activity. He was then transported to [facility] for further management. At this point the cause of the patient's arrest is unknown however he does have a history of cardiac arrest due to hyperkalemia in the setting of end-stage renal disease. There is no reported seizure or convulsive activity noted. This morning the patient remains on sedating medication but is able to open his eyes to verbal stimuli and follows basic commands. Apparently his baseline mental status is awake, alert, and conversing normally. Past Med Surg Social Fam HX - Past Medical History Medical history: cancer, CHF, coronary artery disease, diabetes, hypertension, myocardial infarction, renal disease Psychiatric history: no psych history - Past Surgical History Surgical History: cholecystectomy, vascular surgery - Social History Smoking Status: Never smoker Smokeless Tobacco Status: No Alcohol use: none Drug use: none Medications and Allergies Ergocalciferol (VITAMIN D2) [Vitamin D2] 50,000 unit GTUBE SA 03/18/16 [History] Insulin ASPART [Novolog Flexpen] 8 unit SQ Q4H 03/18/16 [History] Acetaminophen [Tylenol] 325 mg GTUBE Q6H PRN 03/13/17 [History] Amiodarone [Cordarone] 200 mg GTUBE DAILY 03/13/17 [History] Amlodipine Besylate 10 mg GTUBE DAILY 03/13/17 [History] Buspirone HCl [Buspar] 15 mg GTUBE BID 03/13/17 [History] Calcium Acetate [Phos-LO] 1,334 mg GTUBE TIDWM 03/13/17 [History] Carvedilol 37.5 mg PO BIDWM 03/13/17 [History] CloNIDine Patch [Catapres-TTS] 0.3 mg TD QWEEK 03/13/17 [History] Darbepoetin Barron in Polysorbat [Aranesp] 50 mcg SQ QWEEK 03/13/17 [History] Dextrose [Glucose] 33 gm PO ONCE PRN 03/13/17 [History] Digoxin [Lanoxin] 0.125 mg PO Q72H 03/13/17 [History] Diltiazem HCl [Cardizem] 60 mg GTUBE QID 03/13/17 [History] Epoetin Barron [Procrit] 10,000 unit SQ ONCE PRN 03/13/17 [History] Guaifenesin [Cough Syrup] 300 mg GTUBE BID 03/13/17 [History] Hydralazine HCl 125 mg GTUBE Q8H 03/13/17 [History] Insulin Glargine [Lantus] 25 unit SQ QAM 03/13/17 [History] Insulin Regular Human [HumuLIN R] 0 - 16 unit SQ Q6H 03/13/17 [History] Ipratropium/Albuterol Neb [Duoneb] 3 ml IH Q4H PRN 03/13/17 [History] Labetalol 10 mg IV Q1H PRN 03/13/17 [History] Lansoprazole susp *PEDS* [Prevacid susp] 30 mg GTUBE DAILY 03/13/17 [History] Levothyroxine [Synthroid] 75 mcg GTUBE QAM 03/13/17 [History] Lidocaine Patch [Lidoderm 5% patch] 1 each TP DAILY 03/13/17 [History] Metoprolol Tartrate 10 mg IV Q6H 03/13/17 [History] Nitroglycerin [Nitrostat] 0.4 mg SL Q5M PRN 03/13/17 [History] Ondansetron HCl [Zofran] 4 mg PO Q6H PRN 03/13/17 [History] Phenytoin [Dilantin] 100 mg GTUBE BID 03/13/17 [History] Kpglnivffdsv-Ntlg-Xwldasnl,Iso [Zosyn 2.25 gm/50 ml Galaxy Bag] 2.25 gm IV Q6H 03/13/17 [History] Polyethylene Glycol 3350 [MiraLAX] 17 gm PO DAILY 03/13/17 [History] Quetiapine Fumarate [SEROquel] 12.5 mg GTUBE DAILY 03/13/17 [History] Quetiapine Fumarate [Seroquel] 50 mg GTUBE HS 03/13/17 [History] Renal Vitamin [Renal Caps Softgel] 1 mg GTUBE DAILY 03/13/17 [History] Sacubitril/Valsartan [Entresto 97 mg-103 mg Tablet] 1 each GTUBE BID 03/13/17 [ History] Valproic Acid Oral Soln [Depakene Oral Soln] 250 mg GTUBE BID 03/13/17 [History] clonazePAM [Klonopin] 0.25 mg GTUBE BID PRN 03/13/17 [History] 3 Allergy/AdvReac Type Severity Reaction Status Date / Time Sulfa (Sulfonamide Allergy Severe Anaphylaxis Verified 03/21/16 07:20 Antibiotics) codeine Allergy Unknown See Verified 03/19/16 07:08 Comments ROS unobtainable: due to mental status All Systems: A 10-system review of systems was performed and is negative for pertinent findings except as documented above in the HPI. Physical Examination - Vital Signs Vital Signs: Initial Vital Signs Temp Pulse Resp BP Pulse Ox 96.4 F L 104 12 201/92 93 03/13/17 13:19 03/13/17 13:19 03/13/17 13:19 03/13/17 13:19 03/13/17 13:19 - Constitutional General appearance: chronically ill - Neurologic Sensorimotor examination: other (Unable to assess) Detailed motor examination: other (Unable to assess) Detailed sensory examination: other (Unable to assess) Reflex and gait examination: clonus Reflexes: Biceps: 1+, Brachioradialis: 1+, Patella: 0, Achilles: 0 Mental Status Examination: awake, opens eyes to voice, makes eye contact, follows simple commands, cognitive impairment Cranial nerve examination: PERRL Ocular dysmotility: ocular dysmetria Results - Laboratory Findings CBC and BMP: 03/14/17 08:50 03/14/17 04:35 Abnormal lab findings: Abnormal lab results RBC 2.03 M/mcL (4.19-5.50) L 03/14/17 05:45 Hgb 6.4 g/dL (12.9-16.9) L 03/14/17 08:50 Hct 20.4 % (37.5-50.1) L 03/14/17 08:50 MCHC 31.3 g/dL (31.6-35.5) L 03/14/17 05:45 RDW 15.9 % (11.5-14.5) H 03/14/17 05:45 Nucleated RBCs/100 WBC 0.2 /100 WBC (0) H 03/14/17 05:45 Platelet Estimate Slight increase (Normal) H 03/13/17 13:43 PT 12.5 Seconds (9.4-12.1) H 03/13/17 13:43 APTT 36.4 Seconds (26.0-36.0) H 03/13/17 13:43 ABG pO2 54 mmHg (85-104) L 03/14/17 04:21 ABG Total CO2 29 mEq/L (20-26) H 03/14/17 04:21 ABG O2 Saturation 88 % (95-98) L 03/14/17 04:21 BUN 65 mg/dL (8-23) H 03/14/17 04:35 Creatinine 5.10 mg/dL (0.70-1.30) H 03/14/17 04:35 Est GFR ( Amer) 14 (> 60) L 03/14/17 04:35 Est GFR (Non-Af Amer) 11 (> 60) L 03/14/17 04:35 Glucose 110 mg/dL (70-105) H 03/14/17 04:35 POC Glucose 215 (58-89) H 03/14/17 00:05 Calculated Osmolality 311 (280-300) H 03/14/17 04:35 Alkaline Phosphatase 331 Units/L (34-104) H 03/13/17 13:43 Troponin I 0.16 ng/mL (< 0.04) H* 03/14/17 04:35 B-Natriuretic Peptide 2742 pg/mL (Less than 100) H 03/13/17 22:40 Albumin 3.3 g/dL (3.5-5.7) L 03/13/17 13:43 Globulin 3.7 g/dL (2.4-3.5) H 03/13/17 13:43 Albumin/Globulin Ratio 0.9 (1.1-2.2) L 03/13/17 13:43 Digoxin 0.5 ng/mL (0.8-2.0) L 03/13/17 13:43 Phenytoin 1.0 mcg/mL (10.0-20.0) L 03/13/17 13:43 Valproic Acid 14 mcg/mL (50-100) L 03/13/17 13:43 Consult Discharge Plan - Plan Referrals: NONE,PCP [Primary Care Provider] - <Peter Murrieta - Last Filed: 03/15/17 07:10> Date of Encounter: 03/15/17 Time of Encounter: 14:45 Assessment and Plan (1) Acute metabolic encephalopathy Current Visit: No Status: Acute Report by Dr. Apple as stated above. Also considered as a possibility that the EEG could be reflective postictal slowing. Agree with loading him on phenytoin and check a level in the morning and then continue with an oral load of valproate or perhaps even Depacon. History of Present Illness HPI: The chart was reviewed, the patient was seen and examined independently. I agree with the reports entered by Dr. Leary stated above. I did review the EEG which is moderate generalized encephalopathy. I did not identify any evidence of seizure activity. However the EEG could possibly be consistent with a postictal slowing. All Systems: A 10-system review of systems was performed and is negative for pertinent findings except as documented above in the HPI. 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 He also was toes on both feet and raise his legs up.) Results - Laboratory Findings CBC and BMP: 03/15/17 04:12 03/15/17 04:12 Abnormal lab findings: Abnormal lab results RBC 2.03 M/mcL (4.19-5.50) L 03/14/17 05:45 Hgb 6.4 g/dL (12.9-16.9) L 03/14/17 08:50 Hct 20.4 % (37.5-50.1) L 03/14/17 08:50 MCHC 31.3 g/dL (31.6-35.5) L 03/14/17 05:45 RDW 15.9 % (11.5-14.5) H 03/14/17 05:45 Nucleated RBCs/100 WBC 0.2 /100 WBC (0) H 03/14/17 05:45 Platelet Estimate Slight increase (Normal) H 03/13/17 13:43 PT 12.5 Seconds (9.4-12.1) H 03/13/17 13:43 APTT 36.4 Seconds (26.0-36.0) H 03/13/17 13:43 ABG pO2 54 mmHg (85-104) L 03/14/17 04:21 ABG Total CO2 29 mEq/L (20-26) H 03/14/17 04:21 ABG O2 Saturation 88 % (95-98) L 03/14/17 04:21 BUN 65 mg/dL (8-23) H 03/14/17 04:35 Creatinine 5.10 mg/dL (0.70-1.30) H 03/14/17 04:35 Est GFR ( Amer) 14 (> 60) L 03/14/17 04:35 Est GFR (Non-Af Amer) 11 (> 60) L 03/14/17 04:35 Glucose 110 mg/dL (70-105) H 03/14/17 04:35 POC Glucose 215 (58-89) H 03/14/17 00:05 Calculated Osmolality 311 (280-300) H 03/14/17 04:35 Alkaline Phosphatase 331 Units/L (34-104) H 03/13/17 13:43 Troponin I 0.16 ng/mL (< 0.04) H* 03/14/17 04:35 B-Natriuretic Peptide 2742 pg/mL (Less than 100) H 03/13/17 22:40 Albumin 3.3 g/dL (3.5-5.7) L 03/13/17 13:43 Globulin 3.7 g/dL (2.4-3.5) H 03/13/17 13:43 Albumin/Globulin Ratio 0.9 (1.1-2.2) L 03/13/17 13:43 Digoxin 0.5 ng/mL (0.8-2.0) L 03/13/17 13:43 Phenytoin 1.0 mcg/mL (10.0-20.0) L 03/13/17 13:43 Valproic Acid 14 mcg/mL (50-100) L 03/13/17 13:43
[2017-03-14] MEDS ORDERED: 0.9 % Sodium Chloride 250 ML IVC PRN (09:56)
[2017-03-14] MEDS ORDERED: Albumin 25% 12.5gm/50mL 12.5 GM/50 ML IV.SOLN IVPB PRN (09:56)
[2017-03-14] MEDS ORDERED: 0.9 % Sodium Chloride 1,000 ML PRIME SCH (10:00)
--- NOTE | 2017-03-14 10:43 | Cardiology Progress Note ---
Date of Encounter: 03/14/17 Time of Encounter: 10:40 Assessment and Plan (1) PEA (Pulseless electrical activity) Current Visit: No Status: Resolved Per Cardiology: "71 y/o male presents after reported PEA arrest and 10 minutes of ACLS. Prior history of similar presentation in 03/2016 - PEA arrest, hyperkalemia at that time. TTE at that time demonstrated an LVEF of 40-45%". PEA arrest occurred during transport from one ECF to another. Current echo shows EF 45%, RV appears dilated with normal function, no significant valvular dysfunction. No further events noted on telemetry. On amiodarone 200 mg by mouth daily as outpatient. Events appear to be pulmonary related. (2) Elevated troponin Current Visit: No Status: Acute Per Cardiology: Peak troponin 0.19 and setting of PEA arrest. Noted to have peak troponin of 0.24 in March 2016. CP free. Follows with Cardiology in [place]. Will discuss with Dr. Isra Sheriff, anticipate no further ischemic eval at this time. Suspected demand ischemia, no CR consult warranted. (3) Acute and chronic respiratory failure Current Visit: Yes Status: Chronic Per Cardiology: From ECF with chronic trach to vent. Has been vent dependent since past intracranial hemorrhage. Currently intubated. Management per pulm. Qualifiers: Qualified Code(s): J96.20 - Acute and chronic respiratory failure, unspecified whether with hypoxia or hypercapnia (4) ESRD (end stage renal disease) on dialysis Current Visit: No Status: Chronic Per Cardiology: Longstanding hx of ESRD and on dialysis. (5) Fluid overload Current Visit: No Status: Acute Per Cardiology: BNP 2700's. Chest CT 03/13/17 16:05 IMPRESSION: Diffuse airspace disease bilaterally along with bilateral pleural effusions. Pulmonary edema is favored. Discussed with Nephrology, pending dialysis. Qualifiers: Qualified Code(s): E87.70 - Fluid overload, unspecified (6) Altered mental state Current Visit: Yes Status: Acute Per Cardiology: Appears improved. EEG results pending, neurology following. Qualifiers: Qualified Code(s): R40.2431 - [place] coma scale score 3-8, in the field [ EMT or ambulance] (7) Anemia Current Visit: No Status: Acute Per Cardiology: Pending transfusion. Qualifiers: Qualified Code(s): N18.6 - End stage renal disease; D63.1 - Anemia in chronic kidney disease; D63.1 - Anemia in chronic kidney disease; Z99.2 - Dependence on renal dialysis; Z99.2 - Dependence on renal dialysis; Z99.2 - Dependence on renal dialysis; Z99.2 - Dependence on renal dialysis Discussion w patient/family: The assessment and plan as outlined above was discussed with the patient and/or family members who expressed understanding and agreement. All questions were answered. Thank you for involving us in the care of your patient. Please call with any questions. Subjective Principal diagnosis: PEA Arrest Interval history: Currently intubated and sedated with fentanyl drip. EEG in process. No family noted the bedside. Patient reevaluated. Follows verbal commands and answer questions with yes or no head nodding. Positive movement of all treatments 4. Dialysis now pending. Objective Vital Signs, Last 4 Hours Temp Pulse Resp BP Pulse Ox 03/14/17 09:10 18 101/48 97 03/14/17 09:00 71 18 101/48 97 03/14/17 08:33 97.6 F 03/14/17 08:00 66 18 103/49 93 03/14/17 07:31 18 98/47 93 03/14/17 07:00 66 18 98/47 92 General: No Apparent Distress HEENT: Atraumatic, Normocephaly Cardiac: Reg Rate and Rhythm, Normal S1 and S2, No Murmur Lungs: Normal Breath Sounds, No Wheeze, Rales, Rhonchi, Other (Intubated) Neuro: Alert and responsive, Other (sedated, EEG in process) Skin: No rashes noted on visualized skin Extremities: No Edema, Normal Pulses Results 03/14/17 08:50 03/14/17 04:35 Lab Results Laboratory Tests 03/19/16 04/04/16 03/13/17 09:54 06:15 13:43 WBC 16.5 H Hgb 8.6 L Hct 28.4 L Plt Count INR Creatinine 10.59 H Est GFR (Non-Af Amer) 5 L Troponin I 0.24 H* B-Natriuretic Peptide 03/13/17 03/13/17 03/13/17 13:43 13:43 13:43 WBC Hgb Hct Plt Count INR 1.2 Creatinine Est GFR (Non-Af Amer) 13 L Troponin I 0.12 H* B-Natriuretic Peptide 03/13/17 03/13/17 03/14/17 22:40 22:40 04:35 WBC Hgb Hct Plt Count INR Creatinine 5.10 H Est GFR (Non-Af Amer) Troponin I 0.19 H* B-Natriuretic Peptide 2742 H 03/14/17 03/14/17 03/14/17 04:35 05:45 08:50 WBC Hgb 6.4 L Hct 20.1 L Plt Count 263 INR Creatinine Est GFR (Non-Af Amer) Troponin I 0.16 H* B-Natriuretic Peptide ITS Impressions Head CT 03/13/17 13:21 IMPRESSION: Persistent cortical atrophy and chronic small vessel disease. No obvious acute intracranial hemorrhage. If there is clinical suspicion for hypoxic ischemic injury, please consider further evaluation with MRI. D/ / Benjamin Edwards MD / Benjamin Edwards MD Interpreting Provider: Benjamin Edwards MD Chest X-Ray 03/13/17 13:22 IMPRESSION: Diffuse multifocal airspace and interstitial opacities bilaterally which either reflect pulmonary edema or multifocal pneumonia. D/ / 03/13/2017 14:20:13 Ana Kinney MD / renetta Interpreting Provider: Ana Kinney MD Chest X-Ray 03/13/17 14:54 IMPRESSION: 1. Satisfactory position of the newly placed right IJ central line in the SVC. 2. Extensive bilateral airspace disease, likely due to pulmonary edema and/or ARDS. Underlying pneumonia is not excluded. 3. Small right pleural effusion. D/ / Surinder Fowler MD / Surinder Fowler MD Interpreting Provider: Surinder Fowler MD Chest CT 03/13/17 16:05 IMPRESSION: Diffuse airspace disease bilaterally along with bilateral pleural effusions. Pulmonary edema is favored. D/ / Donovan Sue / Donovan Sue Interpreting Provider: Donovan Sue Chest X-Ray 03/14/17 05:00 IMPRESSION: Stable exam with likely bilateral layering pleural effusions with superimposed patchy/hazy airspace opacities which may relate to atelectasis, infiltrates and/or pulmonary edema. D/ / 03/14/2017 08:06:57 Eber Alcantar MD / bcarter Interpreting Provider: Eber Alcantar MD Intake & Output 03/11/17 03/12/17 03/13/17 03/14/17 23:59 23:59 23:59 23:59 Intake Total 17.9 / 17.9 110 / 110 Output Total 250 / 250 Balance 17.9 / 17.9 -140 / -140 Weight 89.358 kg 91.6 kg Active Medications Albuterol Sulfate (Proventil Neb) 2.5 mg IH Q2H PRN; Protocol PRN Reason: Shortness Of Breath/Wheezing Stop: 09/12/17 18:25 Albuterol/Ipratropium (Duoneb) 3 ml IH [id number] PRINCE Stop: 09/12/17 20:01 Last Admin: 03/14/17 07:31 Dose: 3 ml Amiodarone HCl (Cordarone) 200 mg PO DAILY PRINCE Stop: 09/13/17 09:01 Artificial Tears (Lacri-Lube) 1 appl BOTH EYES Q4HR PRINCE PRN Reason: Protocol Stop: 09/12/17 20:01 Last Admin: 03/14/17 04:15 Dose: Not Given Artificial Tears (Lacri-Lube) 1 appl BOTH EYES Q2HR PRN; Protocol PRN Reason: Dry Eyes Stop: 09/12/17 16:48 Chlorhexidine Gluconate (Chlorhexidine Rinse) 15 ml MM BID PRINCE Stop: 09/12/17 21:01 Last Admin: 03/14/17 00:35 Dose: 15 ml Dextrose/Water (Dextrose 50% (Syg)) 25 ml IVP AD PRN PRN Reason: Hypoglycemia Stop: 09/12/17 16:59 Glucagon (Glucagen) 1 mg IM ONCE PRN PRN Reason: Hypoglycemia Stop: 09/12/17 16:59 Glucose (Gluctose) 15 gm PO ONCE PRN PRN Reason: Hypoglycemia Stop: 09/12/17 16:59 Glucose (Gluctose) 30 gm PO ONCE PRN PRN Reason: Hypoglycemia Stop: 09/12/17 16:59 Propofol (Diprivan) 500 mg in 50 mls @ 2.681 mls/hr IVC .[id number] PRINCE; 5 MCG/KG/ MIN PRN Reason: Protocol Stop: 09/12/17 14:01 Last Titration: 03/13/17 16:34 Dose: 0 mcg/kg/min, 0 mls/hr Dobutamine HCl/Dextrose (Dobutamine Premix 250 Mg/250 Ml) 250 mg in 250 mls @ 13.404 mls/hr IVC .[id number] PRINCE; 2.5 MCG/KG/MIN PRN Reason: Protocol Stop: 09/12/17 15:46 Last Admin: 03/13/17 21:32 Dose: Not Given Dextrose (Dextrose 5%) 1,000 mls @ 100 mls/hr IVC .Q10H PRN PRN Reason: HYPOGLYCEMIA Stop: 09/12/17 16:59 Dexmedetomidine HCl (Precedex Premix) 400 mcg in 100 mls @ 4.468 mls/hr IVC .[id number] PRINCE; 0.2 MCG/KG/HR PRN Reason: Protocol Stop: 09/12/17 17:16 Last Admin: 03/14/17 08:03 Dose: 0.5 mcg/kg/hr, 11.17 mls/hr Fentanyl Citrate 1,000 mcg/ (Sodium Chloride) 100 mls @ 2.5 mls/hr IVC CONT PRINCE ; 25 MCG/HR PRN Reason: Protocol Stop: 09/12/17 17:16 Last Admin: 03/13/17 18:44 Dose: 25 mcg/hr, 2.5 mls/hr Cefepime HCl 1,000 mg/ Sterile (Water) 10 mls @ 150 mls/hr IVP Q24H PRINCE Stop: 09/12/17 18:01 Sodium Chloride (0.9 % Sodium Chloride) 250 mls @ 937.5 mls/hr IVC .Q16M PRN PRN Reason: Hypotension Stop: 09/13/17 09:57 Albumin Human (Flexbumin) 12.5 gm in 50 mls @ 60 mls/hr IVPB ONCE PRN PRN Reason: Hypotension Stop: 09/13/17 09:57 Sodium Chloride (0.9 % Sodium Chloride) 1,000 mls @ 0 mls/hr PRIME .Q0M PRINCE PRN Reason: As Directed Stop: 09/13/17 10:01 Insulin Human Lispro (Humalog) 0 units SQ Q6HR PRINCE PRN Reason: Protocol Stop: 09/12/17 18:01 Last Admin: 03/14/17 06:24 Dose: Not Given Levothyroxine Sodium (Synthroid) 75 mcg PO DAILY@0630 [facility] Stop: 09/13/17 06:31 Last Admin: 03/14/17 06:22 Dose: 75 mcg Metoprolol Tartrate (Lopressor) 5 mg IVP Q6HR PRN PRN Reason: Hypertension Stop: 09/12/17 17:06 Pantoprazole Sodium (Protonix) 40 mg IVP DAILY [facility] Stop: 09/13/17 09:01 Phenytoin (Dilantin) 100 mg IVP Q12H PRINCE Stop: 09/12/17 17:01 Last Admin: 03/14/17 06:22 Dose: 100 mg Vancomycin HCl (Vancocin) 0 each IVPB AD [facility] Stop: 09/12/17 18:01 Last Admin: 03/13/17 21:32 Dose: Not Given - Imaging and Cardiology Chest Xray: report reviewed Echo: report reviewed Other Results: EEG pending - EKG Interpretation EKG results cardiology: personally reviewed (ST 100's), other (tele shows SR 70 , avg HR past 12 hrs 72, occasional PVCs) Consult Discharge Plan - Plan Referrals: NONE,PCP [Primary Care Provider] -
--- NOTE | 2017-03-14 10:50 | Nephrology Consult Note ---
<Sharri Wolff Tima - Last Filed: 03/14/17 11:11> Date of Encounter: 03/14/17 Time of Encounter: 10:46 Assessment and Plan (1) ESRD (end stage renal disease) on dialysis Current Visit: No Status: Chronic Plan for HD today Will also plan for his regular HD treatment tomorrow Renal diet when diet advanced Strict I/Os Avoid nephrotoxins if possible (2) Anemia Current Visit: No Status: Acute Hgb 6.4-has 2 units PRBCs ordered Goal hgb 10-11 Transfuse per parameters Qualifiers: Anemia type: due to chronic kidney disease Chronic kidney disease stage: on chronic dialysis Qualified Code(s): N18.6 - End stage renal disease; D63.1 - Anemia in chronic kidney disease; D63.1 - Anemia in chronic kidney disease; Z99.2 - Dependence on renal dialysis; Z99.2 - Dependence on renal dialysis; Z99.2 - Dependence on renal dialysis; Z99.2 - Dependence on renal dialysis (3) Cardiac arrest Current Visit: Yes Status: Acute per critical care team (4) Pneumonia Current Visit: Yes Status: Acute per primary team Qualifiers: Pneumonia type: due to unspecified organism Laterality: bilateral Lung location: unspecified part of lung Qualified Code(s): J18.9 - Pneumonia, unspecified organism History of Present Illness - Reason for Consult Consult date: 03/14/17 end stage renal disease - Chief Complaint cardiac arrest, ESRD on dialysis - History of Present Illness Mr. Bourne is a 71 year old male well known to our practice with past history of HTN, diabetes, CHF, cancer, [place], intracranial hemorrhage associated with trauma, left-sided deficits, tracheostomy, arrives to [facility] emergency department after being transported to an ECF from a stepdown rehabilitation facility. In route to the ECF via patient lost pulses. The performed 2 rounds of CPR and administered 1 dose of epinephrine prior to arrival to the emergency department. The patient was on a ventilator with tracheostomy. In the emergency department the patient was noted to have pulmonary edema versus ARDS versus underlying pneumonia. The patient's family states that he is currently being treated for an underlying pneumonia prior to the transport today. The patient use to be one of our dialysis patients who went to [facility] for his treatments prior to being transferred to [facility] a number of months ago. Past Med Surg Social Fam HX - Past Medical History Medical history: cancer, CHF, coronary artery disease, diabetes, hypertension, myocardial infarction, renal disease Psychiatric history: no psych history - Past Surgical History Surgical History: cholecystectomy, vascular surgery - Social History Smoking Status: Never smoker Smokeless Tobacco Status: No Alcohol use: none Drug use: none Medications and Allergies Ergocalciferol (VITAMIN D2) [Vitamin D2] 50,000 unit GTUBE SA 03/18/16 [History] Insulin ASPART [Novolog Flexpen] 8 unit SQ Q4H 03/18/16 [History] Acetaminophen [Tylenol] 325 mg GTUBE Q6H PRN 03/13/17 [History] Amiodarone [Cordarone] 200 mg GTUBE DAILY 03/13/17 [History] Amlodipine Besylate 10 mg GTUBE DAILY 03/13/17 [History] Buspirone HCl [Buspar] 15 mg GTUBE BID 03/13/17 [History] Calcium Acetate [Phos-LO] 1,334 mg GTUBE TIDWM 03/13/17 [History] Carvedilol 37.5 mg PO BIDWM 03/13/17 [History] CloNIDine Patch [Catapres-TTS] 0.3 mg TD QWEEK 03/13/17 [History] Darbepoetin Barron in Polysorbat [Aranesp] 50 mcg SQ QWEEK 03/13/17 [History] Dextrose [Glucose] 33 gm PO ONCE PRN 03/13/17 [History] Digoxin [Lanoxin] 0.125 mg PO Q72H 03/13/17 [History] Diltiazem HCl [Cardizem] 60 mg GTUBE QID 03/13/17 [History] Epoetin Barron [Procrit] 10,000 unit SQ ONCE PRN 03/13/17 [History] Guaifenesin [Cough Syrup] 300 mg GTUBE BID 03/13/17 [History] Hydralazine HCl 125 mg GTUBE Q8H 03/13/17 [History] Insulin Glargine [Lantus] 25 unit SQ QAM 03/13/17 [History] Insulin Regular Human [HumuLIN R] 0 - 16 unit SQ Q6H 03/13/17 [History] Ipratropium/Albuterol Neb [Duoneb] 3 ml IH Q4H PRN 03/13/17 [History] Labetalol 10 mg IV Q1H PRN 03/13/17 [History] Lansoprazole susp *PEDS* [Prevacid susp] 30 mg GTUBE DAILY 03/13/17 [History] Levothyroxine [Synthroid] 75 mcg GTUBE QAM 03/13/17 [History] Lidocaine Patch [Lidoderm 5% patch] 1 each TP DAILY 03/13/17 [History] Metoprolol Tartrate 10 mg IV Q6H 03/13/17 [History] Nitroglycerin [Nitrostat] 0.4 mg SL Q5M PRN 03/13/17 [History] Ondansetron HCl [Zofran] 4 mg PO Q6H PRN 03/13/17 [History] Phenytoin [Dilantin] 100 mg GTUBE BID 03/13/17 [History] Kkxylowdmpty-Hrob-Mvrauzfx,Iso [Zosyn 2.25 gm/50 ml Galaxy Bag] 2.25 gm IV Q6H 03/13/17 [History] Polyethylene Glycol 3350 [MiraLAX] 17 gm PO DAILY 03/13/17 [History] Quetiapine Fumarate [SEROquel] 12.5 mg GTUBE DAILY 03/13/17 [History] Quetiapine Fumarate [Seroquel] 50 mg GTUBE HS 03/13/17 [History] Renal Vitamin [Renal Caps Softgel] 1 mg GTUBE DAILY 03/13/17 [History] Sacubitril/Valsartan [Entresto 97 mg-103 mg Tablet] 1 each GTUBE BID 03/13/17 [ History] Valproic Acid Oral Soln [Depakene Oral Soln] 250 mg GTUBE BID 03/13/17 [History] clonazePAM [Klonopin] 0.25 mg GTUBE BID PRN 03/13/17 [History] 3 Allergy/AdvReac Type Severity Reaction Status Date / Time Sulfa (Sulfonamide Allergy Severe Anaphylaxis Verified 03/21/16 07:20 Antibiotics) codeine Allergy Unknown See Verified 03/19/16 07:08 Comments Review of Systems All Systems: reviewed and no additional remarkable complaints except as stated Constitutional: no fever(s) Cardiovascular: other (cardiac arrest), no chest pain Respiratory: no cough Gastrointestinal: no vomiting Exam - Vital Signs Vital signs: Initial Vital Signs Temp Pulse Resp BP Pulse Ox 96.4 F L 104 12 201/92 93 03/13/17 13:19 03/13/17 13:19 03/13/17 13:19 03/13/17 13:19 03/13/17 13:19 Vital Signs - Last 8 Hours Temp Pulse Resp BP Pulse Ox 03/14/17 09:10 18 101/48 97 03/14/17 09:00 71 18 101/48 97 03/14/17 08:33 97.6 F 03/14/17 08:00 66 18 103/49 93 03/14/17 07:31 18 98/47 93 03/14/17 07:00 66 18 98/47 92 03/14/17 06:00 65 18 106/49 100 03/14/17 05:25 18 100/43 95 03/14/17 05:00 66 18 100/43 100 03/14/17 04:58 96.7 F L 03/14/17 04:04 18 100/51 95 03/14/17 04:00 62 18 100/51 100 03/14/17 03:00 60 18 93/49 100 Intake and Output 03/13/17 03/14/17 03/14/17 23:59 07:59 15:59 Intake Total 17.9 / 17.9 100 / 100 Output Total 250 / 250 Balance 17.9 / 17.9 -240 / -240 100 / 100 Intake: IV Fluids 17.9 / 17.9 10 100 / 100 PRECEDEX Premix 400 mcg In 100 100 / 100 ml @ 0.2 MCG/KG/HR 4.468 mls/hr IVC .[id number] PRINCE Rx#: [id number] Diprivan 500 mg In 50 ml @ 5 7.9 / 7.9 MCG/KG/MIN 2.681 mls/hr IVC . [id number] PRINCE Rx#:[id number] Maxipime 1,000 MG In Water for inj. (sterile) 10 ML @ 150 mls/ hr IVP Q12HR PRINCE Rx#:[id number] Output: Urostomy 250 / 250 Other: Weight 91.6 kg Blood Glucose* 331 215 Patient Weight 03/14/17 23:59 Weight 91.6 kg - General Appearance General appearance: well-developed, well-nourished, chronically ill EENT: ATNC Neck: supple Respiratory: clear Cardiology: no edema, normal S1, normal S2 Gastrointestinal: no tenderness, no guarding Integumentary: warm and dry Neurologic: alert and oriented x3 (alert and nods head to questions) Psychiatric: cooperative Results - Lab Results 03/14/17 08:50 03/14/17 04:35 Most recent lab results ABG pH 7.43 pH Units (7.32-7.45) 03/14/17 04:21 ABG pCO2 41 mmHg (35-45) 03/14/17 04:21 ABG pO2 54 mmHg (85-104) L 03/14/17 04:21 ABG HCO3 27 mEq/L (21-27) 03/14/17 04:21 ABG O2 Saturation 88 % (95-98) L 03/14/17 04:21 Calcium 8.6 mg/dL (8.6-10.3) 03/14/17 04:35 Phosphorus 4.1 mg/dL (2.7-4.5) 03/13/17 15:34 Magnesium 2.2 mg/dL (1.6-2.6) 03/13/17 15:34 Consult Discharge Plan - Plan Referrals: NONE,PCP [Primary Care Provider] - <Johnnie Grimaldo - Last Filed: 03/21/17 15:42> Date of Encounter: 03/14/17 Exam - Vital Signs Vital signs: Initial Vital Signs Temp Pulse Resp BP Pulse Ox 96.4 F L 104 12 201/92 93 03/13/17 13:19 03/13/17 13:19 03/13/17 13:19 03/13/17 13:19 03/13/17 13:19 Vital Signs - Last 8 Hours Temp Pulse Resp BP Pulse Ox 03/21/17 13:28 22 98 03/21/17 12:17 97.8 F 03/21/17 11:42 22 98 03/21/17 11:30 104 19 89/63 99 03/21/17 10:30 104 18 102/41 99 03/21/17 09:51 22 115/49 98 03/21/17 09:30 107 20 127/45 100 03/21/17 08:30 22 127/45 98 03/21/17 07:40 21 93/46 98 Intake and Output 03/20/17 03/21/17 03/21/17 23:59 07:59 15:59 Intake Total 639.5 / 639.5 394 / 394 202.5 / 202.5 Output Total 0 / 0 0 / 0 Balance 639.5 / 639.5 394 / 394 202.5 / 202.5 Intake: IV Fluids 167.5 / 167.5 95 / 95 202.5 / 202.5 PRECEDEX Premix 400 mcg In 100 55 / 55 95 / 95 100 / 100 ml @ 0.2 MCG/KG/HR 4.468 mls/hr IVC .[id number] PRINCE Rx#: [id number] Maxipime 1,000 MG In Water for inj. (sterile) 10 ML @ 150 mls/ hr IVP Q24H PRINCE Rx#:[id number] Depacon 250 MG In 0.9 % Sodium 102.5 / 102.5 102.5 / 102.5 Chloride 100 ML @ 100 mls/hr IVPB BID PRINCE Rx#:[id number] Tube Feeding 472 / 472 299 / 299 Output: Urostomy 0 / 0 0 / 0 Other: Blood Glucose* 265 220 362 Results - Lab Results 03/21/17 03:45 03/21/17 03:45 Most recent lab results ABG pH 7.44 pH Units (7.32-7.45) 03/20/17 04:22 ABG pCO2 44 mmHg (35-45) 03/20/17 04:22 ABG pO2 95 mmHg (85-104) 03/20/17 04:22 ABG HCO3 29 mEq/L (21-27) H 03/20/17 04:22 ABG O2 Saturation 98 % (95-98) 03/20/17 04:22 Calcium 10.2 mg/dL (8.6-10.3) 03/21/17 03:45 Phosphorus 4.1 mg/dL (2.7-4.5) 03/13/17 15:34 Magnesium 2.3 mg/dL (1.6-2.6) 03/21/17 03:45 - Attending Attestation I examined this patient and my medical decision-making was reviewed with the Resident Physician/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 I agree with the documented findings, disposition and treatment plan as described except to the extent set forth below. Pt seen and examined well known to me from years of management of his ESRD on HD with trauma induced intracranial hemorrhage 2-3 montha ago compliacted by becoming vent dependent with trach and PEG. He presented to us on route to ECF from [facility] care after having PEA arrest and being resuscitated. CXR showed pulm edema, will proceed with HD with UF today despite receiving HD yesterday. Pt aware of enviroment and remembers me. coarse BS bilat but no LE edema noted
--- NOTE | 2017-03-14 11:29 | Pulmonology Progress Note ---
<Oc Love - Last Filed: 03/14/17 12:39> Date of Encounter: 03/14/17 Time of Encounter: 11:24 Assessment and Plan (1) Cardiac arrest Current Visit: Yes Status: Acute Patient has done well overnight. He is responsive and answering questions at this time. He is awake. The patient was doing well. He does have bilateral pleural effusions versus pulmonary edema on CT scan. This may be a determining factor to his cardiac arrest. We will continue to monitor the patient. (2) Acute respiratory failure Current Visit: No Status: Acute Patient is on a ventilator chronically. There was numerous attempts to try to wean patient from the ventilator but there has been no success. Prior to arrival to [facility] emergency department the patient was a roughly on 100% FiO2 with a PEEP of 10. The patient was weaned off 100% FiO2 overnight to 60%. He is doing well with this. Again the patient has very large pleural effusions versus pulmonary edema. The patient does have a left ventricular EF of 45%. The patient will receive dialysis today to assist with likely removal of pulmonary fluid. The patient has done well on the ventilator as he is ventilator dependent at baseline. We will continue to monitor patient's respiratory status. In addition we will continue to attempt to pull off fluid. The patient will continue on broad-spectrum antibiotic's. Neurology, cardiology, nephrology are all consulted and participating in care at this time. Qualifiers: Respiratory failure complication: hypoxia Qualified Code(s): J96.01 - Acute respiratory failure with hypoxia (3) Pulmonary edema Current Visit: No Status: Acute Patient's left ventricular ejection fraction is roughly 45% without any overt diastolic dysfunction. The patient will receive dialysis today to attempt to pull off fluid. We will continue to monitor with repeat imaging. He was weaned down on his FiO2 from 100% to 60% as tolerated this well. Qualifiers: Chronicity: acute Qualified Code(s): J81.0 - Acute pulmonary edema (4) Pneumonia Current Visit: Yes Status: Acute Likely healthcare associated pneumonia. We will begin the patient on broad- spectrum antibiotic's accordingly. Blood, sputum, urine cultures will be obtained. Qualifiers: Pneumonia type: due to unspecified organism Laterality: bilateral Lung location: unspecified part of lung Qualified Code(s): J18.9 - Pneumonia, unspecified organism (5) PEA (Pulseless electrical activity) Current Visit: No Status: Resolved (6) History of seizure disorder Current Visit: Yes Status: Acute (7) Insulin dependent diabetes mellitus Current Visit: No Status: Chronic (8) ESRD (end stage renal disease) on dialysis Current Visit: No Status: Chronic Subjective Principal diagnosis: PEA Arrest Interval history: Patient has done well overnight. The patient was noted yesterday to have a large bilateral pulmonary edema versus pleural effusions on CT scans. The patient's chest x-ray this morning demonstrates similar findings. The patient' s renal function is remained at baseline. The patient has had poor urinary output which is again baseline for the patient. Echocardiogram revealed an LVEF of 45% with no overt diastolic dysfunction. The patient was dialyzed this morning and nephrology saw patient. We will continue to monitor the patient's respiratory status. His FiO2 continued to decrease down to 60%. He is currently awake, alert, oriented to person and place. He is following all commands without difficulty. The patient does have some baseline deficits of his left side without any worsening condition. The patient was restarted on his anti-epileptics. Objective PUL Vital signs: Last Vital Signs Temp 97.6 F 03/14/17 08:33 Pulse 95 03/14/17 11:00 Resp 20 03/14/17 11:00 BP 157/71 03/14/17 11:00 Pulse Ox 99 03/14/17 11:00 General appearance: no acute distress ENT: oropharynx moist Neck: other (Tracheostomy is midline without any bleeding or discharge. Large bowel secretions in the tracheal region.) Ventilator Settings Ventilator Settings: Ventilator Settings, Last 8 Hours Ventilator Mode A/C Ventilator Mode A/C Ventilator Mode A/C Ventilator Mode A/C Ventilator Mode A/C Ventilator Mode A/C Ventilator Mode A/C Ventilator Mode A/C Ventilator Mode A/C Ventilator Tidal Volume 500 Setting Ventilator Tidal Volume 500 Setting Ventilator Tidal Volume 500 Setting Ventilator Tidal Volume 500 Setting Ventilator Tidal Volume 500 Setting Ventilator Tidal Volume 500 Setting Ventilator Tidal Volume 500 Setting Ventilator Tidal Volume 500 Setting Ventilator Tidal Volume 500 Setting Ventilator Tidal Volume 500 Setting Ventilator Respiratory Rate 18 Setting Ventilator Respiratory Rate 18 Setting Ventilator Respiratory Rate 18 Setting Ventilator Respiratory Rate 18 Setting Ventilator Respiratory Rate 16 Setting Ventilator Respiratory Rate 18 Setting Ventilator Respiratory Rate 18 Setting Ventilator Respiratory Rate 18 Setting Ventilator Respiratory Rate 18 Setting Ventilator Respiratory Rate 18 Setting Actual Respiratory Rate 20 Actual Respiratory Rate 18 Actual Respiratory Rate 18 Actual Respiratory Rate 18 Actual Respiratory Rate 16 Actual Respiratory Rate 18 Actual Respiratory Rate 18 Actual Respiratory Rate 18 Actual Respiratory Rate 18 Positive End Expiratory 10 Pressure Positive End Expiratory 10 Pressure Positive End Expiratory 10 Pressure Positive End Expiratory 10 Pressure Positive End Expiratory 5 Pressure Positive End Expiratory 5 Pressure Positive End Expiratory 5 Pressure Positive End Expiratory 5 Pressure Positive End Expiratory 5 Pressure Positive End Expiratory 5 Pressure Peak Inspiratory Airway 28 Pressure Peak Inspiratory Airway 27 Pressure Peak Inspiratory Airway 28 Pressure Peak Inspiratory Airway 28 Pressure Peak Inspiratory Airway 27 Pressure Peak Inspiratory Airway 32 Pressure Peak Inspiratory Airway 29 Pressure Peak Inspiratory Airway 28 Pressure Peak Inspiratory Airway 27 Pressure Results - Laboratory Findings CBC and BMP: 03/14/17 08:50 03/14/17 04:35 ABG ABG pH 7.43 pH Units (7.32-7.45) 03/14/17 04:21 ABG pCO2 41 mmHg (35-45) 03/14/17 04:21 ABG pO2 54 mmHg (85-104) L 03/14/17 04:21 ABG O2 Saturation 88 % (95-98) L 03/14/17 04:21 PT/INR, D-dimer PT 12.5 Seconds (9.4-12.1) H 03/13/17 13:43 Abnormal lab findings: Abnormal lab results RBC 2.03 M/mcL (4.19-5.50) L 03/14/17 05:45 Hgb 6.4 g/dL (12.9-16.9) L 03/14/17 08:50 Hct 20.4 % (37.5-50.1) L 03/14/17 08:50 MCHC 31.3 g/dL (31.6-35.5) L 03/14/17 05:45 RDW 15.9 % (11.5-14.5) H 03/14/17 05:45 Nucleated RBCs/100 WBC 0.2 /100 WBC (0) H 03/14/17 05:45 Platelet Estimate Slight increase (Normal) H 03/13/17 13:43 PT 12.5 Seconds (9.4-12.1) H 03/13/17 13:43 APTT 36.4 Seconds (26.0-36.0) H 03/13/17 13:43 ABG pO2 54 mmHg (85-104) L 03/14/17 04:21 ABG Total CO2 29 mEq/L (20-26) H 03/14/17 04:21 ABG O2 Saturation 88 % (95-98) L 03/14/17 04:21 BUN 65 mg/dL (8-23) H 03/14/17 04:35 Creatinine 5.10 mg/dL (0.70-1.30) H 03/14/17 04:35 Est GFR ( Amer) 14 (> 60) L 03/14/17 04:35 Est GFR (Non-Af Amer) 11 (> 60) L 03/14/17 04:35 Glucose 110 mg/dL (70-105) H 03/14/17 04:35 POC Glucose 215 (58-89) H 03/14/17 00:05 Calculated Osmolality 311 (280-300) H 03/14/17 04:35 Alkaline Phosphatase 331 Units/L (34-104) H 03/13/17 13:43 Troponin I 0.16 ng/mL (< 0.04) H* 03/14/17 04:35 B-Natriuretic Peptide 2742 pg/mL (Less than 100) H 03/13/17 22:40 Albumin 3.3 g/dL (3.5-5.7) L 03/13/17 13:43 Globulin 3.7 g/dL (2.4-3.5) H 03/13/17 13:43 Albumin/Globulin Ratio 0.9 (1.1-2.2) L 03/13/17 13:43 Digoxin 0.5 ng/mL (0.8-2.0) L 03/13/17 13:43 Phenytoin 1.0 mcg/mL (10.0-20.0) L 03/13/17 13:43 Valproic Acid 14 mcg/mL (50-100) L 03/13/17 13:43 - Clinical Findings Intake & Output: Intake & Output 03/13/17 03/14/17 03/14/17 23:59 07:59 15:59 Intake Total 17.9 / 17.9 10 100 / 100 Output Total 250 / 250 Balance 17.9 / 17.9 -240 / -240 100 / 100 Weight 91.6 kg Consult Discharge Plan - Plan Referrals: NONE,PCP [Primary Care Provider] - - Attending Attestation I examined this patient and my medical decision-making was reviewed with the Resident Physician. I agree with the documented findings, disposition and treatment plan as described except to the extent set forth below. <Roney Irwin S - Last Filed: 03/14/17 23:06> Date of Encounter: 03/14/17 Objective PUL Vital signs: Last Vital Signs Temp 98.9 F 03/14/17 20:00 Pulse 88 03/14/17 22:00 Resp 27 03/14/17 22:29 BP 109/53 03/14/17 22:29 Pulse Ox 100 03/14/17 22:29 Ventilator Settings Ventilator Settings: Ventilator Settings, Last 8 Hours Ventilator Mode A/C Ventilator Mode A/C Ventilator Mode A/C Ventilator Mode A/C Ventilator Mode A/C Ventilator Mode A/C Ventilator Tidal Volume 500 Setting Ventilator Tidal Volume 500 Setting Ventilator Tidal Volume 500 Setting Ventilator Tidal Volume 500 Setting Ventilator Tidal Volume 500 Setting Ventilator Tidal Volume 500 Setting Ventilator Tidal Volume 500 Setting Ventilator Tidal Volume 500 Setting Ventilator Tidal Volume 500 Setting Ventilator Respiratory Rate 18 Setting Ventilator Respiratory Rate 18 Setting Ventilator Respiratory Rate 18 Setting Ventilator Respiratory Rate 18 Setting Ventilator Respiratory Rate 18 Setting Ventilator Respiratory Rate 18 Setting Ventilator Respiratory Rate 18 Setting Ventilator Respiratory Rate 18 Setting Ventilator Respiratory Rate 18 Setting Actual Respiratory Rate 26 Actual Respiratory Rate 26 Actual Respiratory Rate 25 Actual Respiratory Rate 24 Actual Respiratory Rate 27 Actual Respiratory Rate 23 Actual Respiratory Rate 22 Actual Respiratory Rate 26 Actual Respiratory Rate 22 Positive End Expiratory 10 Pressure Positive End Expiratory 10 Pressure Positive End Expiratory 10 Pressure Positive End Expiratory 10 Pressure Positive End Expiratory 10 Pressure Positive End Expiratory 10 Pressure Positive End Expiratory 10 Pressure Positive End Expiratory 10 Pressure Positive End Expiratory 10 Pressure Peak Inspiratory Airway 26 Pressure Peak Inspiratory Airway 26 Pressure Peak Inspiratory Airway 26 Pressure Peak Inspiratory Airway 26 Pressure Peak Inspiratory Airway 30 Pressure Peak Inspiratory Airway 27 Pressure Peak Inspiratory Airway 24 Pressure Peak Inspiratory Airway 24 Pressure Peak Inspiratory Airway 23 Pressure Results - Laboratory Findings CBC and BMP: 03/14/17 08:50 03/14/17 04:35 ABG ABG pH 7.43 pH Units (7.32-7.45) 03/14/17 04:21 ABG pCO2 41 mmHg (35-45) 03/14/17 04:21 ABG pO2 54 mmHg (85-104) L 03/14/17 04:21 ABG O2 Saturation 88 % (95-98) L 03/14/17 04:21 PT/INR, D-dimer PT 12.5 Seconds (9.4-12.1) H 03/13/17 13:43 Abnormal lab findings: Abnormal lab results RBC 2.03 M/mcL (4.19-5.50) L 03/14/17 05:45 Hgb 6.4 g/dL (12.9-16.9) L 03/14/17 08:50 Hct 20.4 % (37.5-50.1) L 03/14/17 08:50 MCHC 31.3 g/dL (31.6-35.5) L 03/14/17 05:45 RDW 15.9 % (11.5-14.5) H 03/14/17 05:45 Nucleated RBCs/100 WBC 0.2 /100 WBC (0) H 03/14/17 05:45 Platelet Estimate Slight increase (Normal) H 03/13/17 13:43 PT 12.5 Seconds (9.4-12.1) H 03/13/17 13:43 APTT 36.4 Seconds (26.0-36.0) H 03/13/17 13:43 ABG pO2 54 mmHg (85-104) L 03/14/17 04:21 ABG Total CO2 29 mEq/L (20-26) H 03/14/17 04:21 ABG O2 Saturation 88 % (95-98) L 03/14/17 04:21 BUN 65 mg/dL (8-23) H 03/14/17 04:35 Creatinine 5.10 mg/dL (0.70-1.30) H 03/14/17 04:35 Est GFR ( Amer) 14 (> 60) L 03/14/17 04:35 Est GFR (Non-Af Amer) 11 (> 60) L 03/14/17 04:35 Glucose 110 mg/dL (70-105) H 03/14/17 04:35 POC Glucose 215 (58-89) H 03/14/17 00:05 Calculated Osmolality 311 (280-300) H 03/14/17 04:35 Alkaline Phosphatase 331 Units/L (34-104) H 03/13/17 13:43 Troponin I 0.16 ng/mL (< 0.04) H* 03/14/17 04:35 B-Natriuretic Peptide 2742 pg/mL (Less than 100) H 03/13/17 22:40 Albumin 3.3 g/dL (3.5-5.7) L 03/13/17 13:43 Globulin 3.7 g/dL (2.4-3.5) H 03/13/17 13:43 Albumin/Globulin Ratio 0.9 (1.1-2.2) L 03/13/17 13:43 Digoxin 0.5 ng/mL (0.8-2.0) L 03/13/17 13:43 Phenytoin 1.0 mcg/mL (10.0-20.0) L 03/13/17 13:43 Valproic Acid 14 mcg/mL (50-100) L 03/13/17 13:43 - Clinical Findings Intake & Output: Intake & Output 03/14/17 03/14/17 03/14/17 07:59 15:59 23:59 Intake Total 1502 / 1502 421 / 421 Output Total 250 / 250 5300 / 5300 0 / 0 Balance -240 / -240 -3798 / -3798 421 / 421 Weight 91.6 kg - Attending Attestation I saw and evaluated this patient and my medical decision-making was reviewed with the Resident Physician. I agree with the documented findings, disposition and treatment plan as described except to the extent set forth below. We independently had [id number] contact with the patient I spent of 35 minutes of Critical Care time with this patient. It involved decision making of high complexity to assess, manipulate, and support vital organ system failure and/or to prevent further life threatening deterioration of the patient's condition. The time involved in the performance of separately reportable procedures was not counted toward critical care time. Patient seen and examined at bedside Labs, radiology, chart personally reviewed. 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 2 EEG showed no spike and wake activity if there is high clinical suspiciousness for seizure disorder will repeat EEG for now to start back on home anti-epileptic , Phenytoin load according to Neurology Pulm:Patient is now in acute on chronic respiratory failure supported by tracheostomy bilateral air space disease with bilateral pleural effusion concern for pulmonary edema vs pneumonia lung protective ventilation will continue PEEP therapy weaned down FIO2 dialysis today to remove fluid Cards:: ECHO shows low systolic function with dilated LA more likely both systolic and heart failure . HD today for fluid removal FEN-GI:NPO Renal: Chronic Kidney disease Nephrology consult Thanks for the input dialysis today ID:To cover with broad spectrum antibiotics for pneumonia coverage high risk for MDRO Heme/Onc:Labs reviewed monitor Hb Endo: Glucose Monitored Integ/MSK: Skin Care per routine ICU Nursing Protocol to prevent ulcers. Lines: All lines examined without evidence of infection : Dispo: Critically ill high chance of circulatory failure CODE: Full Code
[2017-03-14] MEDS: Pantoprazole 40 MG VIAL IVP SCH (11:55)
[2017-03-14] MEDS: *HR* Amiodarone 200 MG TABLET PO SCH (11:55)
[2017-03-14] MEDS ORDERED: 0.9 % Sodium Chloride 250 ML ONE (12:31)
--- NOTE | 2017-03-14 12:43 | EEG/EMG/Oth Biometrics Report ---
EEG Procedure Report Date of procedure: 03/14/17 EEG Procedure: Routine EEG Procedure Note: This is a report of a 21 channel bipolar and referential montage EEG. There is no posterior dominant alpha rhythm identified at any time during the recording. The resting rhythm consists primarily of low voltage mixed theta and delta frequencies. This finding is consistent in all leads bilaterally throughout much of the recording. Hyperventilation is not performed during recording. There is no sleep architecture identified during the study. Occasional technical artifact is identified but does not preclude accurate interpretation of the study. Photic stimulation is performed and does not produce a driving response. The EKG reveals normal sinus rhythm at 78 beats per minute. Impressions: This EEG recording is abnormal and is consistent with a moderate generalized encephalopathy. There is no evidence of epileptiform activity identified during the study. Etiologies of this interpretation might include toxic, metabolic, postictal, degenerative. Comment: This EEG does not preclude a diagnosis of seizure or epilepsy. If the clinical suspicion for seizure activity is high, serial EEGs or perhaps a prolonged recording may increase the yield. Please correlate clinically.
[2017-03-14] MEDS ORDERED: PHENYTOIN IVPB ONE (13:30)
[2017-03-14] MEDS ORDERED: 0.9 % Sodium Chloride 1,000 ML ONE (13:59)
[2017-03-14] MEDS ORDERED: Vancomycin 500 MG in D5% in Water (Mini-Bag+) 100 ML IVPB ONE (16:00)
--- NOTE | 2017-03-14 17:12 | Electrocardiograph Report ---
[place] [id number] Test Date: 2017-03-13 Pat Name: Donovan Bourne Department: 103 Room: [facility] Gender: M Hand Icer: ROSIE : 1945 Requested By: Archana See Order Number: [id number] Reading MD: Isra Sheriff Measurements Intervals [place] Rate: 104 P: 64 HI: 186 QRS: 72 QRSD: 99 T: 221 QT: 330 QTc: 390 Interpretive Statements SINUS TACHYCARDIA ST DEVIATION AND MODERATE T-WAVE ABNORMALITY, CONSIDER LATERAL ISCHEMIA ST DEVIATION AND MODERATE T-WAVE ABNORMALITY, CONSIDER INFERIOR ISCHEMIA Electronically Signed On 03-14-2017 17:11:02 EST by Isra Sheriff
[2017-03-14] MEDS ORDERED: Vancomycin 500 MG in 0.9 % Sodium Chloride Mini Bag 100 ML IVPB ONE (19:00)
[2017-03-14] MEDS: Propofol 500 MG/50 ML INFUS..BTL IVC SCH (19:24)
[2017-03-14] MEDS: Valproic Acid INJ 250 MG in 0.9 % Sodium Chloride 100 ML IVPB SCH (23:05)
[2017-03-15] MEDS: Ipratropium/Albuterol Neb 3 ML IH SCH ×7 (00:09→23:48)
[2017-03-15] MEDS: Dexmedetomidine HCl 400 MCG/100 ML MLS IVC SCH ×3 (00:12→15:42)
[2017-03-15] MEDS: Insulin LISPRO 300 UNITS/3 ML VIAL SQ SCH ×6 (00:14→20:07)
[2017-03-15] MEDS: Lacri-Lube 3.5 GM TUBE BOTH EYES SCH ×6 (00:14→20:07)
[2017-03-15 04:13] LABS: ABG Base Excess 2 mEq/L (-2 to 3); ABG HCO3 26 mEq/L (21-27); ABG Oxygen Saturation 97 % (95-98); ABG PCO2 38 mmHg (35-45); ABG PH 7.45 pH Units (7.32-7.45); ABG PO2 82 mmHg (85-104); ABG TCO2 27 mEq/L (20-26); Blood Gas Modality ASSIST CONTROL; Blood Gas PEEP 10 cm H2O; Blood Gas Respiration Rate 18; Blood Gas VT 500 cc
[2017-03-15] MEDS: Propofol 500 MG/50 ML INFUS..BTL IVC SCH (04:23)
[2017-03-15 04:45] LABS: Calcium 8.8 mg/dL (8.6-10.3)
[2017-03-15 04:52] LABS: Basophils # 0.1 K/mcL (0.0-0.2); Basophils % 0.6 %; Eosinophils # 0.2 K/mcL (0.0-0.6); Eosinophils % 1.5 %; Hematocrit 25.4 % (37.5-50.1); Immature Granulocytes % 0.9 % (0-4); Lymphocytes # 0.8 K/mcL (0.6-4.6); Lymphocytes % 6.1 %; Mean Corpuscular HGB Conc 32.3 g/dL (31.6-35.5); Mean Corpuscular Hemoglobin 30.1 pg (28.0-33.3); Mean Corpuscular Volume 93.4 fL (83.0-100.0); Monocytes % 8.4 %; Neutrophils # 10.1 K/mcL (1.6-8.9); Platelet Count 303 K/mcL (140-400); Red Blood Count 2.72 M/mcL (4.19-5.50); Red Cell Distribution Width 18.9 % (11.5-14.5); Segmented Neutrophils % 82.5 %
[2017-03-15 04:58] LABS: Hemoglobin 8.2 g/dL (12.9-16.9)
--- NOTE | 2017-03-15 07:27 | Neurology Progress Note ---
Date of Encounter: 03/15/17 Time of Encounter: 07:24 Assessment and Plan (1) Acute metabolic encephalopathy Current Visit: No Status: Acute At this juncture I suspect we are dealing with acute metabolic encephalopathy. There is no evidence to support a central nervous system infectious process or seizure activity. No evidence of acute cerebral infarct. There is a question of cardiac arrest, which would of course around suspicions for anoxic brain injury. We will reevaluate this patient request. We will defer further metabolic workup to critical care team. Subjective Principal diagnosis: PEA Arrest Interval history: The chart was reviewed, patient seen and examined. Case was discussed with ICU staff. No concerns with this patient overnight. Upon my entering the room he was soundly asleep. Ultimately I was able to arouse him with sternal rub. After arousing and did make eye contact, however he would not follow any commands, he would not attempt to talk. He did however respond to 8 visual threat. He was attentive making eye contact throughout the entire visit. Phenytoin level is yet pending. Otherwise his neurologic examination has not changed. His EEG revealed revealed moderate encephalopathy but no evidence of seizure activity. He has no nuchal rigidity. No evidence of a central nervous system process. Objective - Constitutional Vitals: Temp Pulse Resp BP Pulse Ox 99.1 F 82 18 123/55 98 03/15/17 04:30 03/15/17 06:00 03/15/17 06:17 03/15/17 06:17 03/15/17 06:17 - Neurological Exam Sensorimotor examination: Present: other (Unable to assess) Motor Examination: Present: other (Patient is not following commands today however has equal tone in all 4 extremities.) Sensation intact: Present: other (Unable to assess) Reflex and gait examination: clonus Mental Status Examination: Present: awake, opens eyes to voice, makes eye contact, cognitive impairment Cranial nerve examination: Present: PERRL Ocular dysmotility: ocular dysmetria Results - Laboratory Findings CBC and BMP: 03/15/17 04:12 03/15/17 04:12 Abnormal lab findings: Abnormal lab results WBC 12.2 K/mcL (4.3-11.1) H 03/15/17 04:12 RBC 2.72 M/mcL (4.19-5.50) L 03/15/17 04:12 Hgb 8.2 g/dL (12.9-16.9) L D 03/15/17 04:12 Hct 25.4 % (37.5-50.1) L 03/15/17 04:12 RDW 18.9 % (11.5-14.5) H 03/15/17 04:12 Neutrophils # 10.1 K/mcL (1.6-8.9) H 03/15/17 04:12 Nucleated RBCs/100 WBC 0.2 /100 WBC (0) H 03/14/17 05:45 Platelet Estimate Slight increase (Normal) H 03/13/17 13:43 PT 12.5 Seconds (9.4-12.1) H 03/13/17 13:43 APTT 36.4 Seconds (26.0-36.0) H 03/13/17 13:43 ABG pO2 82 mmHg (85-104) L 03/15/17 04:10 ABG Total CO2 27 mEq/L (20-26) H 03/15/17 04:10 BUN 47 mg/dL (8-23) H 03/15/17 04:12 Creatinine 4.38 mg/dL (0.70-1.30) H 03/15/17 04:12 Est GFR ( Amer) 16 (> 60) L 03/15/17 04:12 Est GFR (Non-Af Amer) 13 (> 60) L 03/15/17 04:12 Glucose 173 mg/dL (70-105) H 03/15/17 04:12 Calculated Osmolality 308 (280-300) H 03/15/17 04:12 Alkaline Phosphatase 331 Units/L (34-104) H 03/13/17 13:43 Troponin I 0.16 ng/mL (< 0.04) H* 03/14/17 04:35 B-Natriuretic Peptide 2742 pg/mL (Less than 100) H 03/13/17 22:40 Albumin 3.3 g/dL (3.5-5.7) L 03/13/17 13:43 Globulin 3.7 g/dL (2.4-3.5) H 03/13/17 13:43 Albumin/Globulin Ratio 0.9 (1.1-2.2) L 03/13/17 13:43 Digoxin 0.5 ng/mL (0.8-2.0) L 03/13/17 13:43 Phenytoin 1.0 mcg/mL (10.0-20.0) L 03/13/17 13:43 Valproic Acid 14 mcg/mL (50-100) L 03/13/17 13:43 Consult Discharge Plan - Plan Referrals: NONE,PCP [Primary Care Provider] -
[2017-03-15] MEDS ORDERED: 0.9 % Sodium Chloride 250 ML IVC PRN (07:43)
[2017-03-15] MEDS ORDERED: 0.9 % Sodium Chloride 1,000 ML PRIME SCH (07:45)
[2017-03-15] MEDS: Chlorhexidine Rinse 15 ML MOUTHWASH MM SCH ×2 (08:18→20:06)
[2017-03-15] MEDS: Pantoprazole 40 MG VIAL IVP SCH (08:18)
[2017-03-15] MEDS: *HR* Amiodarone 200 MG TABLET PO SCH (08:18)
[2017-03-15] MEDS: Valproic Acid INJ 250 MG in 0.9 % Sodium Chloride 100 ML IVPB SCH ×2 (08:19→20:07)
[2017-03-15] MEDS: FentaNYL (PF) 1,000 MCG in 0.9 % Sodium Chloride 80 ML IVC SCH ×2 (08:26→17:43)
--- NOTE | 2017-03-15 09:17 | Nephrology Progress Note ---
Date of Encounter: 03/15/17 Time of Encounter: 09:16 - Assessment and Plan (1) ESRD (end stage renal disease) on dialysis Current Visit: No Status: Chronic Patient previously was an [facility] dialysis patient who went to [facility] for his treatments prior to being transferred to [facility] a number of months ago. Plan for HD today as sceduled MWF Renal diet when diet advanced Strict I/Os Avoid nephrotoxins if possible Patient may need an additional UF tomorrow if he continues to show signs of fluid overload (2) Anemia Current Visit: Yes Status: Acute Goal hgb 10-11 Transfuse per parameters Continue to monitor Qualifiers: Anemia type: due to chronic kidney disease Chronic kidney disease stage: on chronic dialysis Qualified Code(s): N18.6 - End stage renal disease; D63.1 - Anemia in chronic kidney disease; D63.1 - Anemia in chronic kidney disease; Z99.2 - Dependence on renal dialysis; Z99.2 - Dependence on renal dialysis; Z99.2 - Dependence on renal dialysis; Z99.2 - Dependence on renal dialysis (3) Pneumonia Current Visit: Yes Status: Acute Management per critical care team Qualifiers: Pneumonia type: due to unspecified organism Laterality: bilateral Lung location: unspecified part of lung Qualified Code(s): J18.9 - Pneumonia, unspecified organism (4) Cardiac arrest Current Visit: Yes Status: Acute Management per critical care team/ cardiology Subjective Principal diagnosis: PEA Arrest Interval history: Patient seen and examined. He remains on ventilator and is able to nod his head yes to questions. Patient had 250cc UOP in urostomy and is currently receiving HD. Improvement in patient's HGB since receiving 2 units PRBCs and no signs of bleeding. Objective - Vital Signs Vital signs: Vital Signs Temp Pulse Resp BP Pulse Ox 03/15/17 09:00 92 24 127/56 100 03/15/17 08:13 23 100 03/15/17 08:00 98.5 F 86 24 109/50 100 03/15/17 07:00 86 21 121/55 99 03/15/17 06:17 18 123/55 98 03/15/17 06:00 82 18 123/55 98 03/15/17 05:00 83 18 122/57 98 03/15/17 04:30 99.1 F 02/02/18 04:08 18 114/51 99 02/02/18 04:00 76 18 114/51 98 03/15/17 03:00 77 18 114/51 96 02 02:41 18 109/51 100 03/15/17 02:00 79 18 109/53 98 03/15/17 01:00 86 20 108/60 97 03/15/17 00:35 99.3 F 02 00:09 22 109/58 100 03/15/17 00:00 78 18 109/58 100 03/14/17 23:00 82 18 101/54 100 03/14/17 22:29 27 109/53 100 03/14/17 22:00 88 24 109/53 100 03/14/17 21:00 91 25 134/72 100 03/14/17 20:19 28 134/67 100 03/14/17 20:00 98.9 F 101 25 134/67 100 03/14/17 19:00 101 30 127/65 100 03/14/17 18:00 106 24 142/63 100 03/14/17 17:26 27 138/60 100 03/14/17 17:00 111 23 138/60 100 03/14/17 16:00 89 22 155/80 100 03/14/17 15:53 31 151/74 90 03/14/17 15:20 98.7 F 20 151/72 02 15:00 105 22 154/75 100 03/14/17 14:55 148/80 02 14:40 144/77 03/14/17 14:25 139/75 03/14/17 14:10 139/72 03/14/17 14:00 98.6 F 104 22 139/68 99 03/14/17 13:55 131/73 02 13:41 19 140/75 100 03/14/17 13:40 98.2 F 102 22 140/75 02 13:25 98.0 F 100 20 132/62 0218 13:15 97.8 F 96 20 121/61 0218 13:10 111/68 0218 12:55 98.1 F 98 20 115/56 02 12:40 98.3 F 100 20 126/60 0218 12:25 113/57 02/01/18 12:15 18 125/62 99 03/14/17 12:10 143/82 03/14/17 12:00 92 18 120/57 99 03/14/17 11:55 163/75 03/14/17 11:40 170/94 03/14/17 11:25 97 F L 20 163/75 03/14/17 11:00 95 20 157/71 99 03/14/17 10:00 70 18 102/47 100 Intake and Output 03/14/17 03/15/17 03/15/17 23:59 07:59 15:59 Intake Total 421 / 421 577.5 / 577.5 189 / 189 Output Total 0 / 0 50 / 50 0 / 0 Balance 421 / 421 527.5 / 527.5 189 / 189 Intake: IV Fluids 291.5 / 291.5 PRECEDEX Premix 400 mcg In 100 189 / 189 ml @ 0.2 MCG/KG/HR 4.468 mls/hr IVC .[id number] [facility] Rx#: [id number] FentaNYL (PF) 1,000 MCG In 0.9 0 / 0 % Sodium Chloride 80 ML @ 25 MCG/HR 2.5 mls/hr IVC CONT [facility] Rx#:[id number] Maxipime 1,000 MG In Water for inj. (sterile) 10 ML @ 150 mls/ hr IVP Q24H [facility] Rx#:[id number] Depacon 250 MG In 0.9 % Sodium 102.5 / 102.5 Chloride 100 ML @ 100 mls/hr IVPB BID [facility] Rx#:[id number] Tube Feeding 61 / 61 286 / 286 189 / 189 Blood Product 350 / 350 Rbcs Leuko Poor As-3 2nd Unit 350 / 350 [id number] Output: Urostomy 0 / 0 50 / 50 0 / 0 Other: Weight 88.6 kg Blood Glucose* 157 88 189 Patient Weight 03/15/17 23:59 Weight 88.6 kg - General Appearance General appearance: Present: well-developed, well-nourished, chronically ill EENT: Present: ATNC, mucous membranes dry Neck: Present: supple (trach in place) Respiratory: Present: course breath sounds, rhonchi (bibasilar) Cardiology: Present: edema (2+ pitting edema), regular rate, regular rhythm Gastrointestinal: Present: normoactive bowel sounds, no tenderness, no organomegaly Integumentary: Present: no rash, warm and dry Additional Comments: awake, nods head to answer questions, residual left sided deficits unchanged Musculoskeletal: Present: no erythema, decreased ROM (left sided deficits unchanged) Additional Comments: awake, on ventilator, nods head to questions - Lab 03/15/17 04:12 03/15/17 04:12 Most recent lab results ABG pH 7.45 pH Units (7.32-7.45) 03/15/17 04:10 ABG pCO2 38 mmHg (35-45) 03/15/17 04:10 ABG pO2 82 mmHg (85-104) L 03/15/17 04:10 ABG HCO3 26 mEq/L (21-27) 03/15/17 04:10 ABG O2 Saturation 97 % (95-98) 03/15/17 04:10 Calcium 8.8 mg/dL (8.6-10.3) 03/15/17 04:12 Phosphorus 4.1 mg/dL (2.7-4.5) 03/13/17 15:34 Magnesium 2.2 mg/dL (1.6-2.6) 03/13/17 15:34 Consult Discharge Plan - Plan Referrals: NONE,PCP [Primary Care Provider] -
--- NOTE | 2017-03-15 09:41 | Pulmonology Progress Note ---
<Mitchell Worthy R - Last Filed: 03/15/17 11:14> Date of Encounter: 03/15/17 Time of Encounter: 09:39 Assessment and Plan (1) Cardiac arrest Current Visit: Yes Status: Acute Pt has done well overnight, able to respond to commands Bilateral pleural effusions or pulmonary edema on CT likely the reason for cardiac arrest (2) Acute and chronic respiratory failure Current Visit: Yes Status: Acute Patient is on a ventilator chronically. There was numerous attempts to try to wean patient from the ventilator but there has been no success. Prior to arrival to [facility] emergency department the patient was a roughly on 100% FiO2 with a PEEP of 10. The patient was weaned off 60% FiO2 overnight to 40%. He is doing well with this. Again the patient has very large pleural effusions versus pulmonary edema. The patient does have a left ventricular EF of 45%. The patient will receive dialysis today to assist with likely removal of pulmonary fluid. The patient has done well on the ventilator as he is ventilator dependent at baseline. We will continue to monitor patient's respiratory status. In addition we will continue to attempt to pull off fluid. The patient will continue on broad-spectrum antibiotic's. Neurology, cardiology, nephrology are all consulted and participating in care at this time. Qualifiers: Respiratory failure complication: hypoxia Qualified Code(s): J96.21 - Acute and chronic respiratory failure with hypoxia (3) Pneumonia Current Visit: Yes Status: Acute Likely healthcare associated pneumonia. We will begin the patient on broad- spectrum antibiotic's accordingly. Blood, sputum, urine cultures will be obtained. Qualifiers: Pneumonia type: due to unspecified organism Laterality: bilateral Lung location: unspecified part of lung Qualified Code(s): J18.9 - Pneumonia, unspecified organism (4) Pulmonary edema Current Visit: No Status: Acute Patient's left ventricular ejection fraction is roughly 45% without any overt diastolic dysfunction The patient will receive dialysis today to attempt to pull off fluid. We will continue to monitor with repeat imaging. He was weaned down on his FiO2 from 60% to 40% and has tolerated this well. Qualifiers: Chronicity: acute Qualified Code(s): J81.0 - Acute pulmonary edema (5) ESRD (end stage renal disease) on dialysis Current Visit: No Status: Chronic (6) Insulin dependent diabetes mellitus Current Visit: No Status: Chronic (7) History of seizure disorder Current Visit: Yes Status: Acute Subjective Principal diagnosis: PEA Arrest Interval history: Pt has done well overnight. He is able to respond to commands and shake his head yes/no. This seems to be mildly improved compared to yesterday. He does have baseline deficits in his left side without any worsening. Objective PUL Vital signs: Last Vital Signs Temp 98.5 F 03/15/17 08:00 Pulse 92 03/15/17 09:00 Resp 24 03/15/17 09:00 BP 127/56 03/15/17 09:00 Pulse Ox 100 03/15/17 09:00 General appearance: no acute distress Eyes: nonicteric ENT: oropharynx moist Effort: normal Auscultation: bilateral: rhonchi Cardiovascular: regular rate and rhythm Extremities: no cyanosis other (alert and responsive, residual left sided deficits unchanged) Ventilator Settings Ventilator Settings: Ventilator Settings, Last 8 Hours Ventilator Mode CPAP Ventilator Mode CPAP Ventilator Mode CPAP Ventilator Mode CPAP Ventilator Mode A/C Ventilator Mode A/C Ventilator Mode A/C Ventilator Mode A/C Ventilator Tidal Volume 500 Setting Ventilator Tidal Volume 500 Setting Ventilator Tidal Volume 500 Setting Ventilator Tidal Volume 500 Setting Ventilator Respiratory Rate 18 Setting Ventilator Respiratory Rate 18 Setting Ventilator Respiratory Rate 18 Setting Ventilator Respiratory Rate 18 Setting Actual Respiratory Rate 24 Actual Respiratory Rate 21 Actual Respiratory Rate 24 Actual Respiratory Rate 21 Actual Respiratory Rate 18 Actual Respiratory Rate 18 Actual Respiratory Rate 18 Positive End Expiratory 10 Pressure Positive End Expiratory 10 Pressure Positive End Expiratory 10 Pressure Positive End Expiratory 10 Pressure Positive End Expiratory 10 Pressure Positive End Expiratory 10 Pressure Positive End Expiratory 10 Pressure Positive End Expiratory 10 Pressure Peak Inspiratory Airway 20 Pressure Peak Inspiratory Airway 20 Pressure Peak Inspiratory Airway 20 Pressure Peak Inspiratory Airway 20 Pressure Peak Inspiratory Airway 28 Pressure Peak Inspiratory Airway 27 Pressure Peak Inspiratory Airway 26 Pressure Results - Laboratory Findings CBC and BMP: 03/15/17 04:12 03/15/17 04:12 ABG ABG pH 7.45 pH Units (7.32-7.45) 03/15/17 04:10 ABG pCO2 38 mmHg (35-45) 03/15/17 04:10 ABG pO2 82 mmHg (85-104) L 03/15/17 04:10 ABG O2 Saturation 97 % (95-98) 03/15/17 04:10 PT/INR, D-dimer PT 12.5 Seconds (9.4-12.1) H 03/13/17 13:43 Abnormal lab findings: Abnormal lab results WBC 12.2 K/mcL (4.3-11.1) H 03/15/17 04:12 RBC 2.72 M/mcL (4.19-5.50) L 03/15/17 04:12 Hgb 8.2 g/dL (12.9-16.9) L D 03/15/17 04:12 Hct 25.4 % (37.5-50.1) L 03/15/17 04:12 RDW 18.9 % (11.5-14.5) H 03/15/17 04:12 Neutrophils # 10.1 K/mcL (1.6-8.9) H 03/15/17 04:12 Nucleated RBCs/100 WBC 0.2 /100 WBC (0) H 03/14/17 05:45 Platelet Estimate Slight increase (Normal) H 03/13/17 13:43 PT 12.5 Seconds (9.4-12.1) H 03/13/17 13:43 APTT 36.4 Seconds (26.0-36.0) H 03/13/17 13:43 ABG pO2 82 mmHg (85-104) L 03/15/17 04:10 ABG Total CO2 27 mEq/L (20-26) H 03/15/17 04:10 BUN 47 mg/dL (8-23) H 03/15/17 04:12 Creatinine 4.38 mg/dL (0.70-1.30) H 03/15/17 04:12 Est GFR ( Amer) 16 (> 60) L 03/15/17 04:12 Est GFR (Non-Af Amer) 13 (> 60) L 03/15/17 04:12 Glucose 173 mg/dL (70-105) H 03/15/17 04:12 Calculated Osmolality 308 (280-300) H 03/15/17 04:12 Alkaline Phosphatase 331 Units/L (34-104) H 03/13/17 13:43 Troponin I 0.16 ng/mL (< 0.04) H* 03/14/17 04:35 B-Natriuretic Peptide 2742 pg/mL (Less than 100) H 03/13/17 22:40 Albumin 3.3 g/dL (3.5-5.7) L 03/13/17 13:43 Globulin 3.7 g/dL (2.4-3.5) H 03/13/17 13:43 Albumin/Globulin Ratio 0.9 (1.1-2.2) L 03/13/17 13:43 Digoxin 0.5 ng/mL (0.8-2.0) L 03/13/17 13:43 Phenytoin 1.0 mcg/mL (10.0-20.0) L 03/13/17 13:43 Valproic Acid 14 mcg/mL (50-100) L 03/13/17 13:43 - Clinical Findings Intake & Output: Intake & Output 03/14/17 03/15/17 03/15/17 23:59 07:59 15:59 Intake Total 421 / 421 577.5 / 577.5 189 / 189 Output Total 0 / 0 50 / 50 0 / 0 Balance 421 / 421 527.5 / 527.5 189 / 189 Weight 88.6 kg Consult Discharge Plan - Plan Referrals: NONE,PCP [Primary Care Provider] - <Roney Irwin - Last Filed: 03/15/17 21:56> Date of Encounter: 03/15/17 Objective PUL Vital signs: Last Vital Signs Temp 98.9 F 03/15/17 20:25 Pulse 105 03/15/17 21:00 Resp 25 03/15/17 21:41 BP 143/64 03/15/17 21:41 Pulse Ox 96 03/15/17 21:41 Ventilator Settings Ventilator Settings: Ventilator Settings, Last 8 Hours Ventilator Mode A/C Ventilator Mode A/C Ventilator Mode A/C Ventilator Mode A/C Ventilator Mode A/C Ventilator Mode A/C Ventilator Mode A/C Ventilator Mode A/C Ventilator Mode A/C Ventilator Mode A/C Ventilator Tidal Volume 500 Setting Ventilator Tidal Volume 500 Setting Ventilator Tidal Volume 500 Setting Ventilator Tidal Volume 500 Setting Ventilator Tidal Volume 500 Setting Ventilator Tidal Volume 500 Setting Ventilator Tidal Volume 500 Setting Ventilator Tidal Volume 500 Setting Ventilator Tidal Volume 500 Setting Ventilator Tidal Volume 500 Setting Ventilator Respiratory Rate 18 Setting Ventilator Respiratory Rate 18 Setting Ventilator Respiratory Rate 18 Setting Ventilator Respiratory Rate 18 Setting Ventilator Respiratory Rate 18 Setting Ventilator Respiratory Rate 18 Setting Ventilator Respiratory Rate 18 Setting Ventilator Respiratory Rate 18 Setting Ventilator Respiratory Rate 18 Setting Ventilator Respiratory Rate 18 Setting Actual Respiratory Rate 25 Actual Respiratory Rate 23 Actual Respiratory Rate 23 Actual Respiratory Rate 18 Actual Respiratory Rate 23 Actual Respiratory Rate 21 Actual Respiratory Rate 25 Actual Respiratory Rate 22 Actual Respiratory Rate 19 Actual Respiratory Rate 19 Positive End Expiratory 5 Pressure Positive End Expiratory 5 Pressure Positive End Expiratory 5 Pressure Positive End Expiratory 5 Pressure Positive End Expiratory 5 Pressure Positive End Expiratory 5 Pressure Positive End Expiratory 5 Pressure Positive End Expiratory 5 Pressure Positive End Expiratory 5 Pressure Positive End Expiratory 5 Pressure Peak Inspiratory Airway 20 Pressure Peak Inspiratory Airway 20 Pressure Peak Inspiratory Airway 22 Pressure Peak Inspiratory Airway 26 Pressure Peak Inspiratory Airway 22 Pressure Peak Inspiratory Airway 23 Pressure Peak Inspiratory Airway 19 Pressure Peak Inspiratory Airway 22 Pressure Peak Inspiratory Airway 21 Pressure Peak Inspiratory Airway 23 Pressure Results - Laboratory Findings CBC and BMP: 03/15/17 04:12 03/15/17 04:12 ABG ABG pH 7.45 pH Units (7.32-7.45) 03/15/17 04:10 ABG pCO2 38 mmHg (35-45) 03/15/17 04:10 ABG pO2 82 mmHg (85-104) L 03/15/17 04:10 ABG O2 Saturation 97 % (95-98) 03/15/17 04:10 PT/INR, D-dimer PT 12.5 Seconds (9.4-12.1) H 03/13/17 13:43 Abnormal lab findings: Abnormal lab results WBC 12.2 K/mcL (4.3-11.1) H 03/15/17 04:12 RBC 2.72 M/mcL (4.19-5.50) L 03/15/17 04:12 Hgb 8.2 g/dL (12.9-16.9) L D 03/15/17 04:12 Hct 25.4 % (37.5-50.1) L 03/15/17 04:12 RDW 18.9 % (11.5-14.5) H 03/15/17 04:12 Neutrophils # 10.1 K/mcL (1.6-8.9) H 03/15/17 04:12 Nucleated RBCs/100 WBC 0.2 /100 WBC (0) H 03/14/17 05:45 Platelet Estimate Slight increase (Normal) H 03/13/17 13:43 PT 12.5 Seconds (9.4-12.1) H 03/13/17 13:43 APTT 36.4 Seconds (26.0-36.0) H 03/13/17 13:43 ABG pO2 82 mmHg (85-104) L 03/15/17 04:10 ABG Total CO2 27 mEq/L (20-26) H 03/15/17 04:10 BUN 47 mg/dL (8-23) H 03/15/17 04:12 Creatinine 4.38 mg/dL (0.70-1.30) H 03/15/17 04:12 Est GFR ( Amer) 16 (> 60) L 03/15/17 04:12 Est GFR (Non-Af Amer) 13 (> 60) L 03/15/17 04:12 Glucose 173 mg/dL (70-105) H 03/15/17 04:12 Calculated Osmolality 308 (280-300) H 03/15/17 04:12 Alkaline Phosphatase 331 Units/L (34-104) H 03/13/17 13:43 Troponin I 0.16 ng/mL (< 0.04) H* 03/14/17 04:35 B-Natriuretic Peptide 2742 pg/mL (Less than 100) H 03/13/17 22:40 Albumin 3.3 g/dL (3.5-5.7) L 03/13/17 13:43 Globulin 3.7 g/dL (2.4-3.5) H 03/13/17 13:43 Albumin/Globulin Ratio 0.9 (1.1-2.2) L 03/13/17 13:43 Digoxin 0.5 ng/mL (0.8-2.0) L 03/13/17 13:43 Phenytoin 4.3 mcg/mL (10.0-20.0) L 03/15/17 04:12 Valproic Acid 14 mcg/mL (50-100) L 03/13/17 13:43 - Microbiology Findings Microbiology Findings: Microbiology, Last 48 Hours 03/15/17 10:02 Sputum Culture - Preliminary Sputum - Clinical Findings Intake & Output: Intake & Output 03/15/17 03/15/17 03/15/17 07:59 15:59 23:59 Intake Total 577.5 / 577.5 991.5 / 991.5 633 / 633 Output Total 50 / 50 4600 / 4600 7 / 7 Balance 527.5 / 527.5 -3608.5 / -3608.5 626 / 626 Weight 88.6 kg - Attending Attestation - Attending Attestation I saw and evaluated this patient and my medical decision-making was reviewed with the Resident Physician. I agree with the documented findings, disposition and treatment plan as described except to the extent set forth below. We independently had [id number] contact with the patient I spent of 32 minutes of Critical Care time with this patient. It involved decision making of high complexity to assess, manipulate, and support vital organ system failure and/or to prevent further life threatening deterioration of the patient's condition. The time involved in the performance of separately reportable procedures was not counted toward critical care time. Patient seen and examined at bedside Labs, radiology, chart personally reviewed. SKID STRAPPER:Patient is spontaneously opening his eyes and following commands has history of intracranial bleed has history of seizure disorder Started on antiepileptic according to neurology , patient is almost back to baseline Pulm:Patient is now in acute on chronic respiratory failure supported by tracheostomy bilateral air space disease with bilateral pleural effusion concern for pulmonary edema vs pneumonia lung protective ventilation will continue PEEP therapy weaned down FIO2 to 40% dialysis today to remove fluid Cards:: ECHO shows low systolic function with dilated LA more likely both systolic and heart failure . HD today for fluid removal FEN-GI:NPO Renal: Chronic Kidney disease Nephrology consult Thanks for the input dialysis today , yesterday 4 kg of fluid was removal ID:To cover with broad spectrum antibiotics for pneumonia coverage high risk for MDRO no growth in cultures Heme/Onc:Labs reviewed monitor Hb Endo: Glucose Monitored Integ/MSK: Skin Care per routine ICU Nursing Protocol to prevent ulcers. Lines: All lines examined without evidence of infection : Dispo: Critically ill high chance of circulatory failure CODE: Full Code
--- NOTE | 2017-03-15 13:40 | Cardiology Progress Note ---
Date of Encounter: 03/15/17 Time of Encounter: 13:30 Assessment and Plan (1) PEA (Pulseless electrical activity) Current Visit: No Status: Resolved Per Cardiology: "71 y/o male presents after reported PEA arrest and 10 minutes of ACLS. Prior history of similar presentation in 03/2016 - PEA arrest, hyperkalemia at that time. TTE at that time demonstrated an LVEF of 40-45%". PEA arrest occurred during transport from one F to another. Current echo shows EF 45%, RV appears dilated with normal function, no significant valvular dysfunction. No further events noted on telemetry. On amiodarone 200 mg by mouth daily as outpatient. Events appear to be pulmonary related. (2) Elevated troponin Current Visit: No Status: Acute Per Cardiology: Peak troponin 0.19 and setting of PEA arrest. Noted to have peak troponin of 0.24 in March 2016. [facility] 11/2015 ([place] records): mild, non-obstructive CAD. EF unchanged per TTE. No cardiac testing warranted. Follow-up with [employer] [facility] [employer] [facility] outpt--[facility]. (3) Fluid overload Current Visit: No Status: Acute Per Cardiology: BNP [address]00's. Chest CT 03/13/17 16:05 IMPRESSION: Diffuse airspace disease bilaterally along with bilateral pleural effusions. Pulmonary edema is favored. s/p HD today. Qualifiers: Hypervolemia type: unspecified Qualified Code(s): E87.70 - Fluid overload, unspecified Discussion w patient/family: The assessment and plan as outlined above was discussed with the patient and/or family members who expressed understanding and agreement. All questions were answered. Thank you for involving us in the care of your patient. Please call with any questions. The patient was discussed and reviewed with Dr. Isra Sheriff; Cardiology will sign-off. Subjective Principal diagnosis: PEA Arrest Interval history: Seen and examined. Intubated/on precedex. DUDLEY x4. Objective Vital Signs, Last 4 Hours Temp Pulse Resp BP Pulse Ox 03/15/17 13:00 84 20 105/50 95 03/15/17 12:15 98.3 F 03/15/17 12:00 85 20 121/55 97 03/15/17 11:43 85 03/15/17 11:31 27 100 03/15/17 11:30 110/59 03/15/17 11:15 104/54 03/15/17 11:02 17 100 03/15/17 11:00 85 21 99/51 100 03/15/17 10:45 129/57 03/15/17 10:30 132/59 03/15/17 10:15 139/65 03/15/17 10:00 98.3 F 93 20 133/66 99 General: Other (intubated/sedated) HEENT: Atraumatic, Normocephaly Cardiac: Reg Rate and Rhythm, Normal S1 and S2 Lungs: Other (coarse breath sounds) Neuro: Other (intubated/sedated) Abdomen: Soft Skin: No rashes noted on visualized skin Extremities: Other (generalized upper and lower extremity edema) Results 03/15/17 04:12 03/15/17 04:12 Lab Results 03/15/17 03/15/17 04:12 04:12 WBC 12.2 H Hgb 8.2 L D Hct 25.4 L Plt Count 303 Sodium 141 Potassium 4.0 Chloride 104 Carbon Dioxide 27 BUN 47 H Creatinine 4.38 H Glucose 173 H Calcium 8.8 - Imaging and Cardiology Echo: report reviewed Cardiac cath: report reviewed (1) Other Results: 12 hour tele: avg HR=84 SR. No significant event noted. Consult Discharge Plan - Plan Referrals: NONE,PCP [Primary Care Provider] -
[2017-03-15] MEDS ORDERED: Vancomycin 500 MG in D5% in Water (Mini-Bag+) 100 ML IVPB ONE (18:00)
[2017-03-15] MEDS ORDERED: Vancomycin 500 MG in 0.9 % Sodium Chloride Mini Bag 100 ML IVPB ONE (18:15)
[2017-03-15] MEDS: Cefepime HCl 1,000 MG in Water for inj. (sterile) 10 ML IVP SCH (18:23)
[2017-03-16] MEDS: Lacri-Lube 3.5 GM TUBE BOTH EYES SCH ×3 (00:07→11:38)
[2017-03-16] MEDS: Insulin LISPRO 300 UNITS/3 ML VIAL SQ SCH ×6 (00:07→21:26)
[2017-03-16] MEDS: Dexmedetomidine HCl 400 MCG/100 ML MLS IVC SCH ×3 (01:20→18:56)
[2017-03-16 03:51] LABS: Basophils # 0.1 K/mcL (0.0-0.2); Basophils % 0.4 %; Eosinophils # 0.2 K/mcL (0.0-0.6); Eosinophils % 1.9 %; Hematocrit 26.1 % (37.5-50.1); Hemoglobin 8.4 g/dL (12.9-16.9); Lymphocytes # 0.9 K/mcL (0.6-4.6); Lymphocytes % 6.7 %; Mean Corpuscular HGB Conc 32.2 g/dL (31.6-35.5); Mean Corpuscular Hemoglobin 30.3 pg (28.0-33.3); Mean Corpuscular Volume 94.2 fL (83.0-100.0); Mean Platelet Volume 10.5 fL (9.4-12.4); Monocytes # 1.2 K/mcL (0.0-1.3); Monocytes % 9.3 %; Neutrophils # 10.3 K/mcL (1.6-8.9); Platelet Count 322 K/mcL (140-400); Red Blood Count 2.77 M/mcL (4.19-5.50); Red Cell Distribution Width 17.8 % (11.5-14.5); Segmented Neutrophils % 80.7 %
[2017-03-16] MEDS: Ipratropium/Albuterol Neb 3 ML IH SCH ×6 (04:07→23:45)
[2017-03-16 04:19] LABS: Potassium 3.7 mEq/L (3.5-5.1)
[2017-03-16 05:26] LABS: ABG Base Excess 7 mEq/L (-2 to 3); ABG HCO3 32 mEq/L (21-27); ABG Oxygen Saturation 91 % (95-98); ABG PCO2 46 mmHg (35-45); ABG PH 7.45 pH Units (7.32-7.45); ABG PO2 59 mmHg (85-104); ABG TCO2 33 mEq/L (20-26); Blood Gas Modality VC; Blood Gas PEEP 5 cm H2O; Blood Gas Respiration Rate 18; Blood Gas VT 500 cc
[2017-03-16] MEDS ORDERED: 0.9 % Sodium Chloride 250 ML IVC PRN (08:07)
[2017-03-16] MEDS ORDERED: 0.9 % Sodium Chloride 1,000 ML PRIME SCH (08:15)
--- NOTE | 2017-03-16 10:14 | Nephrology Progress Note ---
Date of Encounter: 03/16/17 Time of Encounter: 10:13 - Assessment and Plan (1) ESRD (end stage renal disease) on dialysis Current Visit: No Status: Chronic HD MWF. Additional dialysis as needed. Renal dose medications. (2) Hypertension Current Visit: No Status: Resolved Titrate antihypertensive medications as needed. Qualifiers: Hypertension type: essential hypertension Qualified Code(s): I10 - Essential (primary) hypertension (3) Acute and chronic respiratory failure Current Visit: Yes Status: Acute Patient with a trach. Per primary team. Qualifiers: Respiratory failure complication: hypoxia Qualified Code(s): J96.21 - Acute and chronic respiratory failure with hypoxia (4) Cardiac arrest Current Visit: Yes Status: Acute (5) Diabetes mellitus Current Visit: No Status: Chronic 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 mellitus penitentiary insulin use: with penitentiary use Chronic kidney disease stage: on chronic dialysis Qualified Code(s): E11.22 - Type 2 diabetes mellitus with diabetic chronic kidney disease; N18.6 - End stage renal disease; N18.6 - End stage renal disease; N18.6 - End stage renal disease; N18.6 - End stage renal disease; Z79.4 - jail (current) use of insulin; Z79.4 - jail (current) use of insulin; Z79.4 - jail (current ) use of insulin; Z79.4 - jail (current) use of insulin; Z99.2 - Dependence on renal dialysis; Z99.2 - Dependence on renal dialysis; Z99.2 - Dependence on renal dialysis; Z99.2 - Dependence on renal dialysis Subjective Principal diagnosis: PEA Arrest Interval history: Patient seen and evaluated. He has a trach. Objective - Vital Signs Vital signs: Vital Signs Temp Pulse Resp BP Pulse Ox 03/16/17 09:21 18 106/51 96 03/16/17 08:15 98.5 F 03/16/17 08:00 93 18 106/51 94 03/16/17 07:41 18 129/54 93 03/16/17 06:00 80 19 129/54 96 03/16/17 05:39 19 124/58 95 03/16/17 05:31 97.7 F 03/16/17 05:00 79 18 112/49 98 02/03/18 04:07 18 116/53 96 02/03/18 04:00 74 18 116/53 97 02/03/18 03:00 74 18 112/53 98 02/03/18 02:43 82 02/03/18 02:00 80 18 127/57 98 02/03/18 01:07 18 138/68 97 02/03/18 01:00 90 18 138/68 98 02/03/18 00:16 99.1 F [id number] 00:00 92 23 139/59 96 02/02/18 23:49 18 143/63 96 02/0218 23:23 82 02/0218 23:00 100 24 159/69 96 02/02/18 21:41 25 143/64 96 02/02/18 21:00 105 28 153/69 96 02/02/18 20:25 98.9 F 0218 20:00 97 24 131/63 95 02/02/18 19:42 82 02/0218 19:41 18 131/62 93 /0218 19:00 88 23 137/61 97 02/02/18 18:07 22 93 02/02/18 18:00 84 24 114/55 94 02/02/18 17:00 79 22 105/48 94 02/02/18 16:11 22 92 020218 16:00 82 20 120/53 94 /02/18 15:00 98.5 F 82 20 102/48 92 02/02/18 14:17 18 94 02/02/18 14:00 80 19 95/46 94 02/02/18 13:10 98.7 F 20 118/56 02/02/18 13:00 84 20 122/59 95 02/02/18 12:45 112/56 02/02/18 12:30 100/51 02/02/18 12:15 98.3 F 115/58 02/02/18 12:00 85 20 117/50 97 02/02/18 11:45 85 105/53 02/02/18 11:31 27 100 02/02/18 11:30 110/59 02/02/18 11:15 104/54 02/02/18 11:02 17 100 02/0218 11:00 85 21 99/51 100 02/02/18 10:45 129/57 03/15/17 10:30 132/59 03/15/17 10:15 139/65 Intake and Output 03/15/17 03/16/17 03/16/17 23:59 07:59 15:59 Intake Total 633 / 633 606 / 606 Output Total Balance 626 / 626 581 / 581 Intake: IV Fluids 110 / 110 200 / 200 PRECEDEX Premix 400 mcg In 100 200 / 200 ml @ 0.2 MCG/KG/HR 4.468 mls/hr IVC .[id number] [facility] Rx#: [id number] Maxipime 1,000 MG In Water for inj. (sterile) 10 ML @ 150 mls/ hr IVP Q24H [facility] Rx#:[id number] Vancocin 500 MG In 0.9 % Sodium 100 / 100 Chloride (Mini-Bag +) 100 ML @ 100 mls/hr IVPB ONCE ONE Rx#: [id number] Oral 0 / 0 Tube Feeding 523 / 523 406 / 406 Output: Urostomy Catheter Other: Stool Size Moderate Stool Consistency soft Stool Color Brown # Bowel Movements 1 Weight 87.9 kg Blood Glucose* 243 91 184 Patient Weight 03/16/17 23:59 Weight 87.9 kg - General Appearance General appearance: Present: well-developed, well-nourished EENT: Present: ATNC Neck: Present: supple Cardiology: Present: no edema, regular rate Gastrointestinal: Present: no tenderness Integumentary: Present: warm and dry Musculoskeletal: Present: no cyanosis - Lab 03/16/17 03:25 03/16/17 03:25 Most recent lab results ABG pH 7.45 pH Units (7.32-7.45) 03/16/17 05:22 ABG pCO2 46 mmHg (35-45) H 03/16/17 05:22 ABG pO2 59 mmHg (85-104) L 03/16/17 05:22 ABG HCO3 32 mEq/L (21-27) H 03/16/17 05:22 ABG O2 Saturation 91 % (95-98) L 03/16/17 05:22 Calcium 9.0 mg/dL (8.6-10.3) 03/16/17 03:25 Phosphorus 4.1 mg/dL (2.7-4.5) 03/13/17 15:34 Magnesium 2.2 mg/dL (1.6-2.6) 03/13/17 15:34 Consult Discharge Plan - Plan Referrals: NONE,PCP [Primary Care Provider] -
--- NOTE | 2017-03-16 10:42 | Pulmonology Progress Note ---
<Mitchell Worthy - Last Filed: 03/16/17 10:36> Date of Encounter: 03/16/17 Time of Encounter: 10:36 Assessment and Plan (1) Cardiac arrest Current Visit: Yes Status: Acute Pt has done well overnight, able to respond to commands Bilateral pleural effusions or pulmonary edema on CT likely the reason for cardiac arrest Became tachycardic with some chest pain this morning after O2 sat slightly dropping - EKG unchanged from previous - Trop 0.06 - will trend (2) Acute and chronic respiratory failure Current Visit: Yes Status: Acute Patient is on a ventilator chronically. There was numerous attempts to try to wean patient from the ventilator but there has been no success. Prior to arrival to [facility] emergency department the patient was a roughly on 100% FiO2 with a PEEP of 10. The patient is down to FiO2 40%. He is doing well with this. Again the patient has very large pleural effusions versus pulmonary edema. The patient does have a left ventricular EF of 45%. The patient will receive dialysis today to assist with likely removal of pulmonary fluid. The patient has done well on the ventilator as he is ventilator dependent at baseline. We will continue to monitor patient's respiratory status. In addition we will continue to attempt to pull off fluid. The patient will continue on broad-spectrum antibiotic's. Neurology, cardiology, nephrology are all consulted and participating in care at this time. Qualifiers: Respiratory failure complication: hypoxia Qualified Code(s): J96.21 - Acute and chronic respiratory failure with hypoxia (3) Pneumonia Current Visit: Yes Status: Acute Likely healthcare associated pneumonia. We will begin the patient on broad- spectrum antibiotic's accordingly. Blood and sputum cultures pending Qualifiers: Pneumonia type: due to unspecified organism Laterality: bilateral Lung location: unspecified part of lung Qualified Code(s): J18.9 - Pneumonia, unspecified organism (4) Pulmonary edema Current Visit: No Status: Acute Patient's left ventricular ejection fraction is roughly 45% without any overt diastolic dysfunction The patient will receive dialysis today to attempt to pull off fluid. We will continue to monitor with repeat imaging. He was weaned down on his FiO2 to 40% and has tolerated this well. Qualifiers: Chronicity: acute Qualified Code(s): J81.0 - Acute pulmonary edema (5) ESRD (end stage renal disease) on dialysis Current Visit: No Status: Chronic (6) Insulin dependent diabetes mellitus Current Visit: No Status: Chronic (7) History of seizure disorder Current Visit: Yes Status: Acute Subjective Principal diagnosis: PEA Arrest Interval history: Pt has done well overnight. He is able to respond to commands and shake his head yes/no. Became hypoxic this morning and became tachycardic - vent settings were changed and the HR returned to normal. Objective PUL Vital signs: Last Vital Signs Temp 98.5 F 03/16/17 08:15 Pulse 93 03/16/17 08:00 Resp 18 03/16/17 09:21 BP 106/51 03/16/17 09:21 Pulse Ox 96 03/16/17 09:21 General appearance: no acute distress Eyes: nonicteric ENT: oropharynx moist Auscultation: bilateral: rhonchi Cardiovascular: regular rate and rhythm Extremities: no cyanosis Ventilator Settings Ventilator Settings: Ventilator Settings, Last 8 Hours Ventilator Mode A/C Ventilator Mode A/C Ventilator Mode A/C Ventilator Mode A/C Ventilator Mode CPAP Ventilator Mode A/C Ventilator Mode A/C Ventilator Mode A/C Ventilator Mode A/C Ventilator Mode A/C Ventilator Tidal Volume 500 Setting Ventilator Tidal Volume 500 Setting Ventilator Tidal Volume 500 Setting Ventilator Tidal Volume 500 Setting Ventilator Tidal Volume 500 Setting Ventilator Tidal Volume 500 Setting Ventilator Tidal Volume 500 Setting Ventilator Tidal Volume 500 Setting Ventilator Tidal Volume 500 Setting Ventilator Respiratory Rate 18 Setting Ventilator Respiratory Rate 18 Setting Ventilator Respiratory Rate 18 Setting Ventilator Respiratory Rate 18 Setting Ventilator Respiratory Rate 18 Setting Ventilator Respiratory Rate 18 Setting Ventilator Respiratory Rate 18 Setting Ventilator Respiratory Rate 18 Setting Ventilator Respiratory Rate 18 Setting Actual Respiratory Rate 18 Actual Respiratory Rate 18 Actual Respiratory Rate 18 Actual Respiratory Rate 18 Actual Respiratory Rate 21 Actual Respiratory Rate 18 Actual Respiratory Rate 18 Actual Respiratory Rate 18 Actual Respiratory Rate 18 Positive End Expiratory 5 Pressure Positive End Expiratory 5 Pressure Positive End Expiratory 5 Pressure Positive End Expiratory 5 Pressure Positive End Expiratory 5 Pressure Positive End Expiratory 5 Pressure Positive End Expiratory 5 Pressure Positive End Expiratory 5 Pressure Positive End Expiratory 5 Pressure Positive End Expiratory 5 Pressure Peak Inspiratory Airway 27 Pressure Peak Inspiratory Airway 20 Pressure Peak Inspiratory Airway 30 Pressure Peak Inspiratory Airway 16 Pressure Peak Inspiratory Airway 15 Pressure Peak Inspiratory Airway 21 Pressure Peak Inspiratory Airway 24 Pressure Peak Inspiratory Airway 24 Pressure Peak Inspiratory Airway 26 Pressure Results - Laboratory Findings CBC and BMP: 03/16/17 03:25 03/16/17 03:25 ABG ABG pH 7.45 pH Units (7.32-7.45) 03/16/17 05:22 ABG pCO2 46 mmHg (35-45) H 03/16/17 05:22 ABG pO2 59 mmHg (85-104) L 03/16/17 05:22 ABG O2 Saturation 91 % (95-98) L 03/16/17 05:22 PT/INR, D-dimer PT 12.5 Seconds (9.4-12.1) H 03/13/17 13:43 Abnormal lab findings: Abnormal lab results WBC 12.8 K/mcL (4.3-11.1) H 03/16/17 03:25 RBC 2.77 M/mcL (4.19-5.50) L 03/16/17 03:25 Hgb 8.4 g/dL (12.9-16.9) L 03/16/17 03:25 Hct 26.1 % (37.5-50.1) L 03/16/17 03:25 RDW 17.8 % (11.5-14.5) H 03/16/17 03:25 Neutrophils # 10.3 K/mcL (1.6-8.9) H 03/16/17 03:25 Nucleated RBCs/100 WBC 0.2 /100 WBC (0) H 03/14/17 05:45 Platelet Estimate Slight increase (Normal) H 03/13/17 13:43 PT 12.5 Seconds (9.4-12.1) H 03/13/17 13:43 APTT 36.4 Seconds (26.0-36.0) H 03/13/17 13:43 ABG pCO2 46 mmHg (35-45) H 03/16/17 05:22 ABG pO2 59 mmHg (85-104) L 03/16/17 05:22 ABG HCO3 32 mEq/L (21-27) H 03/16/17 05:22 ABG Total CO2 33 mEq/L (20-26) H 03/16/17 05:22 ABG O2 Saturation 91 % (95-98) L 03/16/17 05:22 ABG Base Excess 7 mEq/L (-2 to 3) H 03/16/17 05:22 Carbon Dioxide 30 mEq/L (23-29) H 03/16/17 03:25 BUN 45 mg/dL (8-23) H 03/16/17 03:25 Creatinine 4.09 mg/dL (0.70-1.30) H 03/16/17 03:25 Est GFR ( Amer) 18 (> 60) L 03/16/17 03:25 Est GFR (Non-Af Amer) 15 (> 60) L 03/16/17 03:25 POC Glucose 228 (58-89) H 03/15/17 23:32 Calculated Osmolality 301 (280-300) H 03/16/17 03:25 Alkaline Phosphatase 331 Units/L (34-104) H 03/13/17 13:43 Troponin I 0.06 ng/mL (< 0.04) H* 03/16/17 08:30 B-Natriuretic Peptide 2742 pg/mL (Less than 100) H 03/13/17 22:40 Albumin 3.3 g/dL (3.5-5.7) L 03/13/17 13:43 Globulin 3.7 g/dL (2.4-3.5) H 03/13/17 13:43 Albumin/Globulin Ratio 0.9 (1.1-2.2) L 03/13/17 13:43 Digoxin 0.5 ng/mL (0.8-2.0) L 03/13/17 13:43 Phenytoin 4.3 mcg/mL (10.0-20.0) L 03/15/17 04:12 Valproic Acid 14 mcg/mL (50-100) L 03/13/17 13:43 - Microbiology Findings Microbiology Findings: Microbiology, Last 48 Hours 03/15/17 10:02 Sputum Culture - Preliminary Sputum - Clinical Findings Intake & Output: Intake & Output 03/15/17 03/16/17 03/16/17 23:59 07:59 15:59 Intake Total 633 / 633 606 / 606 Output Total 7 / 7 25 25 Balance 626 / 626 581 / 581 Weight 87.9 kg Consult Discharge Plan - Plan Referrals: NONE,PCP [Primary Care Provider] - <Roney Irwin - Last Filed: 03/16/17 23:06> Date of Encounter: 03/16/17 Objective PUL Vital signs: Last Vital Signs Temp 99.6 F 03/16/17 20:53 Pulse 106 03/16/17 22:00 Resp 24 03/16/17 22:00 BP 170/79 03/16/17 22:00 Pulse Ox 96 03/16/17 22:00 Ventilator Settings Ventilator Settings: Ventilator Settings, Last 8 Hours Ventilator Mode A/C Ventilator Mode A/C Ventilator Mode A/C Ventilator Mode A/C Ventilator Mode A/C Ventilator Mode A/C Ventilator Mode A/C Ventilator Mode A/C Ventilator Mode A/C Ventilator Tidal Volume 500 Setting Ventilator Tidal Volume 500 Setting Ventilator Tidal Volume 500 Setting Ventilator Tidal Volume 500 Setting Ventilator Tidal Volume 500 Setting Ventilator Tidal Volume 500 Setting Ventilator Tidal Volume 500 Setting Ventilator Tidal Volume 500 Setting Ventilator Tidal Volume 500 Setting Ventilator Tidal Volume 500 Setting Ventilator Tidal Volume 500 Setting Ventilator Respiratory Rate 18 Setting Ventilator Respiratory Rate 18 Setting Ventilator Respiratory Rate 18 Setting Ventilator Respiratory Rate 18 Setting Ventilator Respiratory Rate 18 Setting Ventilator Respiratory Rate 18 Setting Ventilator Respiratory Rate 18 Setting Ventilator Respiratory Rate 18 Setting Ventilator Respiratory Rate 18 Setting Ventilator Respiratory Rate 18 Setting Ventilator Respiratory Rate 18 Setting Actual Respiratory Rate 24 Actual Respiratory Rate 24 Actual Respiratory Rate 21 Actual Respiratory Rate 21 Actual Respiratory Rate 21 Actual Respiratory Rate 20 Actual Respiratory Rate 21 Actual Respiratory Rate 25 Actual Respiratory Rate 22 Actual Respiratory Rate 20 Actual Respiratory Rate 22 Positive End Expiratory 5 Pressure Positive End Expiratory 5 Pressure Positive End Expiratory 5 Pressure Positive End Expiratory 5 Pressure Positive End Expiratory 5 Pressure Positive End Expiratory 5 Pressure Positive End Expiratory 5 Pressure Positive End Expiratory 5 Pressure Positive End Expiratory 5 Pressure Positive End Expiratory 5 Pressure Positive End Expiratory 5 Pressure Peak Inspiratory Airway 25 Pressure Peak Inspiratory Airway 29 Pressure Peak Inspiratory Airway 20 Pressure Peak Inspiratory Airway 28 Pressure Peak Inspiratory Airway 24 Pressure Peak Inspiratory Airway 21 Pressure Peak Inspiratory Airway 28 Pressure Peak Inspiratory Airway 23 Pressure Results - Laboratory Findings CBC and BMP: 03/16/17 03:25 03/16/17 03:25 ABG ABG pH 7.45 pH Units (7.32-7.45) 03/16/17 05:22 ABG pCO2 46 mmHg (35-45) H 03/16/17 05:22 ABG pO2 59 mmHg (85-104) L 03/16/17 05:22 ABG O2 Saturation 91 % (95-98) L 03/16/17 05:22 PT/INR, D-dimer PT 12.5 Seconds (9.4-12.1) H 03/13/17 13:43 Abnormal lab findings: Abnormal lab results WBC 12.8 K/mcL (4.3-11.1) H 03/16/17 03:25 RBC 2.77 M/mcL (4.19-5.50) L 03/16/17 03:25 Hgb 8.4 g/dL (12.9-16.9) L 03/16/17 03:25 Hct 26.1 % (37.5-50.1) L 03/16/17 03:25 RDW 17.8 % (11.5-14.5) H 03/16/17 03:25 Neutrophils # 10.3 K/mcL (1.6-8.9) H 03/16/17 03:25 Nucleated RBCs/100 WBC 0.2 /100 WBC (0) H 03/14/17 05:45 Platelet Estimate Slight increase (Normal) H 03/13/17 13:43 PT 12.5 Seconds (9.4-12.1) H 03/13/17 13:43 APTT 36.4 Seconds (26.0-36.0) H 03/13/17 13:43 ABG pCO2 46 mmHg (35-45) H 03/16/17 05:22 ABG pO2 59 mmHg (85-104) L 03/16/17 05:22 ABG HCO3 32 mEq/L (21-27) H 03/16/17 05:22 ABG Total CO2 33 mEq/L (20-26) H 03/16/17 05:22 ABG O2 Saturation 91 % (95-98) L 03/16/17 05:22 ABG Base Excess 7 mEq/L (-2 to 3) H 03/16/17 05:22 Carbon Dioxide 30 mEq/L (23-29) H 03/16/17 03:25 BUN 45 mg/dL (8-23) H 03/16/17 03:25 Creatinine 4.09 mg/dL (0.70-1.30) H 03/16/17 03:25 Est GFR ( Amer) 18 (> 60) L 03/16/17 03:25 Est GFR (Non-Af Amer) 15 (> 60) L 03/16/17 03:25 POC Glucose 228 (58-89) H 03/15/17 23:32 Calculated Osmolality 301 (280-300) H 03/16/17 03:25 Alkaline Phosphatase 331 Units/L (34-104) H 03/13/17 13:43 Troponin I 0.07 ng/mL (< 0.04) H* 03/16/17 21:10 B-Natriuretic Peptide 2742 pg/mL (Less than 100) H 03/13/17 22:40 Albumin 3.3 g/dL (3.5-5.7) L 03/13/17 13:43 Globulin 3.7 g/dL (2.4-3.5) H 03/13/17 13:43 Albumin/Globulin Ratio 0.9 (1.1-2.2) L 03/13/17 13:43 Digoxin 0.5 ng/mL (0.8-2.0) L 03/13/17 13:43 Phenytoin 4.3 mcg/mL (10.0-20.0) L 03/15/17 04:12 Valproic Acid 14 mcg/mL (50-100) L 03/13/17 13:43 - Microbiology Findings Microbiology Findings: Microbiology, Last 48 Hours 03/15/17 10:02 Sputum Culture - Preliminary Sputum Pseudomonas aeruginosa - Clinical Findings Intake & Output: Intake & Output 03/16/17 03/16/17 03/16/17 07:59 15:59 23:59 Intake Total 606 / 606 902.5 / 902.5 707 / 707 Output Total 25 / 0 / 0 2600 / 2600 Balance 581 / 581 902.5 / 902.5 -1893 / -1893 Weight 87.9 kg - Attending Attestation I saw and evaluated this patient and my medical decision-making was reviewed with the Resident Physician. I agree with the documented findings, disposition and treatment plan as described except to the extent set forth below. We independently had [id number] contact with the patient Patient seen and examined at bedside Labs, radiology, chart personally reviewed. CABLE TOOL DRILLER:Patient is spontaneously opening his eyes and following commands has history of intracranial bleed has history of seizure disorder Started on antiepileptic according to neurology , patient is almost back to baseline Pulm:Patient is now in acute on chronic respiratory failure supported by tracheostomy bilateral air space disease with bilateral pleural effusion concern for pulmonary edema vs pneumonia lung protective ventilation will continue PEEP therapy weaned down FIO2 to 40% dialysis for past two days put him on SBT developed hypoxia and ST-T change to VC plus , patient is vent dependent Cards:: ECHO shows low systolic function with dilated LA more likely both systolic and heart failure . HD helped in fluid removal and bringing down his O2 requirements FEN-GI:Diet as tolerated Renal: Chronic Kidney disease Nephrology consult Thanks for the input dialysis two sessions of fluid removal did well ID:To cover with broad spectrum antibiotics for pneumonia coverage high risk for MDRO no growth in cultures will start descalating soon Heme/Onc:Labs reviewed monitor Hb Endo: Glucose Monitored Integ/MSK: Skin Care per routine ICU Nursing Protocol to prevent ulcers. Lines: All lines examined without evidence of infection : Dispo: Critically ill high chance of circulatory failure CODE: Full Code
[2017-03-16] MEDS: Pantoprazole 40 MG VIAL IVP SCH (11:46)
[2017-03-16] MEDS: *HR* Amiodarone 200 MG TABLET PO SCH (11:47)
[2017-03-16] MEDS: Valproic Acid INJ 250 MG in 0.9 % Sodium Chloride 100 ML IVPB SCH ×2 (11:51→21:21)
[2017-03-16] MEDS: Cefepime HCl 1,000 MG in Water for inj. (sterile) 10 ML IVP SCH (18:13)
[2017-03-16] MEDS: *HR* Metoprolol 5 MG/5 ML VIAL IVP PRN (22:00)
[2017-03-17 00:15] LABS: Phenytoin (Dilantin) Free 0.8 ug/mL (1.0-2.5); Phenytoin Dose NOT PROVIDED; Phenytoin Dose Frequency NOT PROVIDED; Phenytoin Route NOT PROVIDED
[2017-03-17] MEDS: Insulin LISPRO 300 UNITS/3 ML VIAL SQ SCH ×6 (00:35→21:26)
[2017-03-17] MEDS: Dexmedetomidine HCl 400 MCG/100 ML MLS IVC SCH ×2 (02:09→10:39)
[2017-03-17 03:40] LABS: Basophils # 0.1 K/mcL (0.0-0.2); Basophils % 0.5 %; Eosinophils # 0.3 K/mcL (0.0-0.6); Eosinophils % 1.7 %; Hematocrit 27.6 % (37.5-50.1); Immature Granulocytes % 0.7 % (0-4); Lymphocytes # 0.8 K/mcL (0.6-4.6); Lymphocytes % 4.7 %; Mean Corpuscular HGB Conc 32.6 g/dL (31.6-35.5); Mean Corpuscular Hemoglobin 30.3 pg (28.0-33.3); Mean Corpuscular Volume 92.9 fL (83.0-100.0); Mean Platelet Volume 10.4 fL (9.4-12.4); Monocytes # 1.3 K/mcL (0.0-1.3); Monocytes % 7.9 %; Neutrophils # 14.3 K/mcL (1.6-8.9); Platelet Count 352 K/mcL (140-400); Red Blood Count 2.97 M/mcL (4.19-5.50); Red Cell Distribution Width 17.4 % (11.5-14.5); Segmented Neutrophils % 84.5 %
[2017-03-17] MEDS: Ipratropium/Albuterol Neb 3 ML IH SCH ×6 (03:59→23:34)
[2017-03-17 04:03] LABS: Calcium 9.4 mg/dL (8.6-10.3); Potassium 3.8 mEq/L (3.5-5.1)
[2017-03-17 04:35] LABS: ABG Base Excess 10 mEq/L (-2 to 3); ABG HCO3 34 mEq/L (21-27); ABG Oxygen Saturation 93 % (95-98); ABG PCO2 46 mmHg (35-45); ABG PH 7.48 pH Units (7.32-7.45); ABG PO2 64 mmHg (85-104); ABG TCO2 36 mEq/L (20-26); Blood Gas Modality ASSIST CONTROL; Blood Gas PEEP 5 cm H2O; Blood Gas Respiration Rate 18; Blood Gas VT 500 cc
[2017-03-17] MEDS: Albuterol 2.5 MG/3 ML NEBULIZER IH PRN (07:45)
[2017-03-17] MEDS ORDERED: Aminoglycoside Consult 1 EACH MC ONE (09:14)
[2017-03-17] MEDS: Valproic Acid INJ 250 MG in 0.9 % Sodium Chloride 100 ML IVPB SCH ×2 (09:20→21:26)
[2017-03-17] MEDS: Pantoprazole 40 MG VIAL IVP SCH (09:24)
[2017-03-17] MEDS: *HR* Amiodarone 200 MG TABLET PO SCH (09:25)
--- NOTE | 2017-03-17 11:11 | Nephrology Progress Note ---
Date of Encounter: 03/17/17 Time of Encounter: 11:11 - Assessment and Plan (1) ESRD (end stage renal disease) on dialysis Current Visit: No Status: Chronic HD MWF. Additional dialysis as needed. Renal dose medications. (2) Acute and chronic respiratory failure Current Visit: Yes Status: Acute Patient with a trach. Per primary team. Patient is vent dependent. Qualifiers: Respiratory failure complication: hypoxia Qualified Code(s): J96.21 - Acute and chronic respiratory failure with hypoxia (3) Cardiac arrest Current Visit: Yes Status: Acute (4) Diabetes mellitus Current Visit: No Status: Chronic 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 mellitus local company intermodal truck driver insulin use: with local company intermodal truck driver use Chronic kidney disease stage: on chronic dialysis Qualified Code(s): E11.22 - Type 2 diabetes mellitus with diabetic chronic kidney disease; N18.6 - End stage renal disease; N18.6 - End stage renal disease; N18.6 - End stage renal disease; N18.6 - End stage renal disease; Z79.4 - jail (current) use of insulin; 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 Qualifiers: Qualified Code(s): I10 - Essential (primary) hypertension Subjective Principal diagnosis: PEA Arrest Interval history: Patient seen and evaluated. He has a trach. Still on the vent. Objective - Vital Signs Vital signs: Vital Signs Temp Pulse Resp BP Pulse Ox 03/17/17 11:00 97 20 147/64 99 03/17/17 10:00 98 20 135/64 98 03/17/17 09:43 20 140/62 97 03/17/17 09:00 101 20 135/62 97 03/17/17 08:00 98 18 140/62 98 03/17/17 07:45 22 140/62 98 03/17/17 07:30 98.9 F 03/17/17 07:00 101 30 168/73 99 0218 06:20 18 123/59 94 18 06:00 85 18 123/59 96 18 05:24 18 130/66 95 18 05:00 88 18 130/66 95 18 04:40 99.8 F H 03/17/17 03:59 18 115/54 95 03/17/17 03:12 96 03/17/17 03:00 93 22 137/63 98 03/17/17 02:00 93 24 133/68 99 03/17/17 01:11 25 140/66 99 03/17/17 01:00 96 20 140/66 97 03/17/17 00:48 99.1 F 03/17/17 00:00 96 20 145/73 97 18 23:45 24 147/68 96 03/16/17 23:00 98 28 149/68 96 03/16/17 22:00 106 24 170/79 96 18 21:38 24 154/75 94 03/16/17 21:00 125 33 170/82 95 18 20:53 99.6 F 18 20:00 101 26 139/66 96 18 19:50 21 132/65 96 18 19:36 96 18 19:00 96 18 124/58 98 18 18:00 93 21 132/71 98 02/03/18 17:20 25 132/66 99 03/18 17:01 98.6 F 18 132/66 02/03/18 17:00 94 22 142/62 98 02/03/18 16:30 123/64 02/03/18 16:15 122/61 02/03/18 16:00 78 20 120/73 99 /03/18 15:45 137/66 02/03/18 15:30 141/65 02/03/18 15:19 22 120/73 98 02/03/18 15:15 135/63 02/03/18 15:00 98 21 138/62 99 02/03/18 14:45 139/64 02/03/18 14:30 145/66 02/03/18 14:15 142/67 02/03/18 14:00 98.7 F 92 18 137/65 99 03/16/17 13:00 101 19 150/68 98 03/16/17 12:00 98.7 F 93 20 135/64 98 03/16/17 11:15 18 126/56 96 Intake and Output 03/16/17 03/17/17 03/17/17 23:59 07:59 15:59 Intake Total 809.5 / 809.5 100 / 100 100 / 100 Output Total 2600 / 2600 25 / 25 Balance -1790.5 / -1790.5 75 / 75 100 / 100 Intake: IV Fluids 212.5 / 212.5 100 / 100 100 / 100 PRECEDEX Premix 400 mcg In 100 100 / 100 100 / 100 100 / 100 ml @ 0.2 MCG/KG/HR 4.468 mls/hr IVC .[id number] [facility] Rx#: [id number] Maxipime 1,000 MG In Water for 10 / 10 inj. (sterile) 10 ML @ 150 mls/ hr IVP Q24H [facility] Rx#:[id number] Depacon 250 MG In 0.9 % Sodium 102.5 / 102.5 Chloride 100 ML @ 100 mls/hr IVPB BID [facility] Rx#:[id number] Oral 0 / 0 0 / 0 Tube Feeding 597 / 597 Output: Urine 0 / 0 Total Dialysis (HD) Output 2600 / 2600 Urostomy 0 / 0 Other: Stool Size Large Stool Consistency liquid Stool Color Bon Colored Weight 85.6 kg Blood Glucose* 288 172 Hemodialysis Net Fluid Removed 2000 (mL) Patient Weight 03/17/17 23:59 Weight 85.6 kg - General Appearance General appearance: Present: well-developed, well-nourished EENT: Present: ATNC Neck: Present: supple Respiratory: Present: clear Cardiology: Present: no edema, regular rate Gastrointestinal: Present: no tenderness Integumentary: Present: warm and dry - Lab 03/17/17 03:25 03/17/17 03:25 Most recent lab results ABG pH 7.48 pH Units (7.32-7.45) H 03/17/17 04:28 ABG pCO2 46 mmHg (35-45) H 03/17/17 04:28 ABG pO2 64 mmHg (85-104) L 03/17/17 04:28 ABG HCO3 34 mEq/L (21-27) H 03/17/17 04:28 ABG O2 Saturation 93 % (95-98) L 03/17/17 04:28 Calcium 9.4 mg/dL (8.6-10.3) 03/17/17 03:25 Phosphorus 4.1 mg/dL (2.7-4.5) 03/13/17 15:34 Magnesium 2.2 mg/dL (1.6-2.6) 03/13/17 15:34 Consult Discharge Plan - Plan Referrals: NONE,PCP [Primary Care Provider] -
--- NOTE | 2017-03-17 11:22 | Pulmonology Progress Note ---
Date of Encounter: 03/17/17 Time of Encounter: 11:19 Assessment and Plan (1) Cardiac arrest Current Visit: Yes Status: Acute Pt has done well overnight, able to respond to commands Bilateral pleural effusions or pulmonary edema on CT likely the reason for cardiac arrest Became tachycardic with some chest pain yesterday after O2 sat slightly dropping - this appears to be a pattern for him - EKG unchanged from previous - Trop 0.06, 0.07, 0.07 (2) Acute and chronic respiratory failure Current Visit: Yes Status: Acute Patient is on a ventilator chronically. There was numerous attempts to try to wean patient from the ventilator but there has been no success. Prior to arrival to [facility] emergency department the patient was a roughly on 100% FiO2 with a PEEP of 10. The patient is down to FiO2 40%. He is doing well with this. Again the patient has very large pleural effusions versus pulmonary edema. The patient does have a left ventricular EF of 45%. The patient will receive dialysis today to assist with likely removal of pulmonary fluid. The patient has done well on the ventilator as he is ventilator dependent at baseline. We will continue to monitor patient's respiratory status. In addition we will continue to attempt to pull off fluid. The patient will continue on broad-spectrum antibiotic's. Neurology, cardiology, nephrology are all consulted and participating in care at this time. Qualifiers: Respiratory failure complication: hypoxia Qualified Code(s): J96.21 - Acute and chronic respiratory failure with hypoxia (3) Pneumonia Current Visit: Yes Status: Acute Likely healthcare associated pneumonia - sputum culture shows Pseudomonas Continue Cefepime. Discontinue Vanc. Qualifiers: Pneumonia type: due to unspecified organism Laterality: bilateral Lung location: unspecified part of lung Qualified Code(s): J18.9 - Pneumonia, unspecified organism (4) Pulmonary edema Current Visit: No Status: Acute Patient's left ventricular ejection fraction is roughly 45% without any overt diastolic dysfunction The patient will receive dialysis today to attempt to pull off fluid. We will continue to monitor with repeat imaging. He was weaned down on his FiO2 to 40% and has tolerated this well Qualifiers: Chronicity: acute Qualified Code(s): J81.0 - Acute pulmonary edema (5) ESRD (end stage renal disease) on dialysis Current Visit: No Status: Chronic (6) Insulin dependent diabetes mellitus Current Visit: No Status: Chronic (7) History of seizure disorder Current Visit: Yes Status: Acute Subjective Principal diagnosis: PEA Arrest Interval history: Pt has done well overnight. He is able to respond to commands and shake his head yes/no. Objective PUL Vital signs: Last Vital Signs Temp 98.9 F 03/17/17 07:30 Pulse 97 03/17/17 11:00 Resp 20 03/17/17 11:00 BP 147/64 03/17/17 11:00 Pulse Ox 99 03/17/17 11:00 General appearance: no acute distress Eyes: nonicteric ENT: oropharynx moist Auscultation: bilateral: rhonchi Cardiovascular: regular rate and rhythm Extremities: no cyanosis Ventilator Settings Ventilator Settings: Ventilator Settings, Last 8 Hours Ventilator Mode A/C Ventilator Mode A/C Ventilator Mode A/C Ventilator Mode A/C Ventilator Mode A/C Ventilator Mode A/C Ventilator Mode CPAP Ventilator Mode CPAP Ventilator Mode A/C Ventilator Mode A/C Ventilator Mode A/C Ventilator Mode A/C Ventilator Mode A/C Ventilator Tidal Volume 500 Setting Ventilator Tidal Volume 500 Setting Ventilator Tidal Volume 500 Setting Ventilator Tidal Volume 500 Setting Ventilator Tidal Volume 500 Setting Ventilator Tidal Volume 500 Setting Ventilator Tidal Volume 500 Setting Ventilator Tidal Volume 500 Setting Ventilator Tidal Volume 500 Setting Ventilator Tidal Volume 500 Setting Ventilator Tidal Volume 500 Setting Ventilator Tidal Volume 500 Setting Ventilator Respiratory Rate 18 Setting Ventilator Respiratory Rate 18 Setting Ventilator Respiratory Rate 18 Setting Ventilator Respiratory Rate 18 Setting Ventilator Respiratory Rate 18 Setting Ventilator Respiratory Rate 18 Setting Ventilator Respiratory Rate 18 Setting Ventilator Respiratory Rate 18 Setting Ventilator Respiratory Rate 18 Setting Ventilator Respiratory Rate 18 Setting Ventilator Respiratory Rate 18 Setting Actual Respiratory Rate 20 Actual Respiratory Rate 20 Actual Respiratory Rate 18 Actual Respiratory Rate 20 Actual Respiratory Rate 18 Actual Respiratory Rate 22 Actual Respiratory Rate 32 Actual Respiratory Rate 18 Actual Respiratory Rate 18 Actual Respiratory Rate 18 Actual Respiratory Rate 18 Positive End Expiratory 5 Pressure Positive End Expiratory 5 Pressure Positive End Expiratory 5 Pressure Positive End Expiratory 5 Pressure Positive End Expiratory 5 Pressure Positive End Expiratory 5 Pressure Positive End Expiratory 5 Pressure Positive End Expiratory 5 Pressure Positive End Expiratory 5 Pressure Positive End Expiratory 5 Pressure Positive End Expiratory 5 Pressure Positive End Expiratory 5 Pressure Positive End Expiratory 5 Pressure Peak Inspiratory Airway 22 Pressure Peak Inspiratory Airway 22 Pressure Peak Inspiratory Airway 22 Pressure Peak Inspiratory Airway 22 Pressure Peak Inspiratory Airway 22 Pressure Peak Inspiratory Airway 26 Pressure Peak Inspiratory Airway 16 Pressure Peak Inspiratory Airway 15 Pressure Peak Inspiratory Airway 24 Pressure Peak Inspiratory Airway 24 Pressure Peak Inspiratory Airway 24 Pressure Peak Inspiratory Airway 24 Pressure Results - Laboratory Findings CBC and BMP: 03/17/17 03:25 03/17/17 03:25 ABG ABG pH 7.48 pH Units (7.32-7.45) H 03/17/17 04:28 ABG pCO2 46 mmHg (35-45) H 03/17/17 04:28 ABG pO2 64 mmHg (85-104) L 03/17/17 04:28 ABG O2 Saturation 93 % (95-98) L 03/17/17 04:28 PT/INR, D-dimer PT 12.5 Seconds (9.4-12.1) H 03/13/17 13:43 Abnormal lab findings: Abnormal lab results WBC 16.9 K/mcL (4.3-11.1) H 03/17/17 03:25 RBC 2.97 M/mcL (4.19-5.50) L 03/17/17 03:25 Hgb 9.0 g/dL (12.9-16.9) L 03/17/17 03:25 Hct 27.6 % (37.5-50.1) L 03/17/17 03:25 RDW 17.4 % (11.5-14.5) H 03/17/17 03:25 Neutrophils # 14.3 K/mcL (1.6-8.9) H 03/17/17 03:25 Nucleated RBCs/100 WBC 0.2 /100 WBC (0) H 03/14/17 05:45 Platelet Estimate Slight increase (Normal) H 03/13/17 13:43 PT 12.5 Seconds (9.4-12.1) H 03/13/17 13:43 APTT 36.4 Seconds (26.0-36.0) H 03/13/17 13:43 ABG pH 7.48 pH Units (7.32-7.45) H 03/17/17 04:28 ABG pCO2 46 mmHg (35-45) H 03/17/17 04:28 ABG pO2 64 mmHg (85-104) L 03/17/17 04:28 ABG HCO3 34 mEq/L (21-27) H 03/17/17 04:28 ABG Total CO2 36 mEq/L (20-26) H 03/17/17 04:28 ABG O2 Saturation 93 % (95-98) L 03/17/17 04:28 ABG Base Excess 10 mEq/L (-2 to 3) H 03/17/17 04:28 Carbon Dioxide 30 mEq/L (23-29) H 03/17/17 03:25 BUN 48 mg/dL (8-23) H 03/17/17 03:25 Creatinine 4.11 mg/dL (0.70-1.30) H 03/17/17 03:25 Est GFR ( Amer) 18 (> 60) L 03/17/17 03:25 Est GFR (Non-Af Amer) 15 (> 60) L 03/17/17 03:25 Glucose 140 mg/dL (70-105) H 03/17/17 03:25 POC Glucose 261 (58-89) H 03/17/17 00:30 Calculated Osmolality 307 (280-300) H 03/17/17 03:25 Alkaline Phosphatase 331 Units/L (34-104) H 03/13/17 13:43 Troponin I 0.07 ng/mL (< 0.04) H* 03/16/17 21:10 B-Natriuretic Peptide 2742 pg/mL (Less than 100) H 03/13/17 22:40 Albumin 3.3 g/dL (3.5-5.7) L 03/13/17 13:43 Globulin 3.7 g/dL (2.4-3.5) H 03/13/17 13:43 Albumin/Globulin Ratio 0.9 (1.1-2.2) L 03/13/17 13:43 Digoxin 0.5 ng/mL (0.8-2.0) L 03/13/17 13:43 Phenytoin 4.3 mcg/mL (10.0-20.0) L 03/15/17 04:12 Valproic Acid 14 mcg/mL (50-100) L 03/13/17 13:43 - Microbiology Findings Microbiology Findings: Microbiology, Last 48 Hours 03/15/17 10:02 Sputum Culture - Preliminary Sputum Pseudomonas aeruginosa - Clinical Findings Intake & Output: Intake & Output 03/16/17 03/17/17 03/17/17 23:59 07:59 15:59 Intake Total 809.5 / 809.5 100 / 100 100 / 100 Output Total 2600 / 2600 25 / 25 Balance -1790.5 / -1790.5 75 / 75 100 / 100 Weight 85.6 kg Consult Discharge Plan - Plan Referrals: NONE,PCP [Primary Care Provider] -
[2017-03-17] MEDS: *HR* Metoprolol 5 MG/5 ML VIAL IVP PRN (16:12)
[2017-03-17] MEDS: Cefepime HCl 1,000 MG in Water for inj. (sterile) 10 ML IVP SCH (17:49)
[2017-03-18] MEDS: Insulin LISPRO 300 UNITS/3 ML VIAL SQ SCH ×6 (01:43→20:46)
[2017-03-18] MEDS: Ipratropium/Albuterol Neb 3 ML IH SCH ×6 (03:33→23:34)
[2017-03-18 03:59] LABS: Basophils # 0.1 K/mcL (0.0-0.2); Basophils % 0.6 %; Eosinophils # 0.4 K/mcL (0.0-0.6); Eosinophils % 1.9 %; Hematocrit 25.1 % (37.5-50.1); Hemoglobin 8.2 g/dL (12.9-16.9); Immature Granulocytes % 0.7 % (0-4); Mean Corpuscular HGB Conc 32.7 g/dL (31.6-35.5); Mean Corpuscular Volume 91.9 fL (83.0-100.0); Mean Platelet Volume 10.6 fL (9.4-12.4); Monocytes # 1.7 K/mcL (0.0-1.3); Monocytes % 8.8 %; Neutrophils # 15.8 K/mcL (1.6-8.9); Platelet Count 368 K/mcL (140-400); Red Blood Count 2.73 M/mcL (4.19-5.50)
[2017-03-18 04:33] LABS: Calcium 9.8 mg/dL (8.6-10.3); Potassium 3.5 mEq/L (3.5-5.1)
[2017-03-18 04:49] LABS: ABG Base Excess 7 mEq/L (-2 to 3); ABG HCO3 31 mEq/L (21-27); ABG Oxygen Saturation 95 % (95-98); ABG PCO2 38 mmHg (35-45); ABG PH 7.51 pH Units (7.32-7.45); ABG PO2 67 mmHg (85-104); ABG TCO2 32 mEq/L (20-26); Blood Gas Modality ASSIST CONTROL; Blood Gas PEEP 5 cm H2O; Blood Gas Respiration Rate 18; Blood Gas VT 500 cc
--- NOTE | 2017-03-18 07:17 | Pulmonology Progress Note ---
Date of Encounter: 03/18/17 Time of Encounter: 07:16 Assessment and Plan (1) Acute respiratory failure Current Visit: No Status: Acute Has acute on chronic respiratory failure his trach dependent at baseline after an intracerebral hemorrhage. Weaning trial a day he failed because of hypoxemia I reviewed his chest x-ray which is notable for bilateral infiltrates I believe that this is also combination of both infection and cardiogenic pulmonary edema which volume removal with nephrology will be helpful he is being treated appropriately with antimicrobials. Qualifiers: Respiratory failure complication: hypoxia Qualified Code(s): J96.01 - Acute respiratory failure with hypoxia (2) ESRD (end stage renal disease) on dialysis Current Visit: No Status: Chronic Nephrology following plan for dialysis today treatment of chronic anemia will also be evaluated (3) PEA (Pulseless electrical activity) Current Visit: No Status: Resolved He is status post brief cardiac arrest his was evaluated by cardiology amiodarone has been started for ventricular arrhythmia no further recommendations from their standpoint otherwise hemodynamically stable now (4) Altered mental state Current Visit: Yes Status: Acute He continues to intermittently follow commands although per reports this is nearing baseline I do not see a focal deficit there may be some residual decreased sensorium related to postarrest state and possibly metabolic encephalopathy from chronic kidney failure Qualifiers: Altered mental status type: coma Coma depth: [place] coma 3-8 Coma timing : in the field (EMT or ambulance) Qualified Code(s): R40.2431 - [place] coma scale score 3-8, in the field [EMT or ambulance] (5) Ischemic stroke of frontal lobe Current Visit: No Status: Acute This is historical (6) Pneumonia Current Visit: Yes Status: Acute Vision was Pseudomonas pneumonia which is being treated with appropriate antimicrobial persistent leukocytosis is troubling we will reculture patient at this time. Qualifiers: Pneumonia type: due to Pneumococcus Laterality: bilateral Lung location: unspecified part of lung Qualified Code(s): J13 - Pneumonia due to Streptococcus pneumoniae (7) History of seizure disorder Current Visit: Yes Status: Acute Continue dilantin and valproate (8) Hypertension Current Visit: Yes Status: Acute We are adding a beta eloisa to his regimen and titrating to goal Qualifiers: Qualified Code(s): I10 - Essential (primary) hypertension (9) DVT prophylaxis Current Visit: No Status: Acute Continue routine DVT prophylaxis Subjective Principal diagnosis: PEA Arrest Interval history: Mental status is about the same intermittently able to follow commands but definitely confused at times per report this is approximating his baseline. Otherwise he remained hemodynamically stable with attempt of liberation trial from ventilator he was noted to desat quickly.. Objective PUL Vital signs: Last Vital Signs Temp 99.5 F 03/18/17 00:50 Pulse 93 03/18/17 06:00 Resp 26 03/18/17 06:00 BP 147/69 03/18/17 06:00 Pulse Ox 100 03/18/17 06:00 General appearance: no acute distress ENT: oropharynx moist Auscultation: bilateral: rhonchi Cardiovascular: irregular rhythm Gastrointestinal: soft, non-tender Integumentary: decubitus ulcer Extremities: edema (Trace bilateral lower extremity edema) non-focal exam, pupils equal and round Ventilator Settings Ventilator Settings: Ventilator Settings, Last 8 Hours Ventilator Mode A/C Ventilator Mode A/C Ventilator Mode A/C Ventilator Mode A/C Ventilator Mode A/C Ventilator Mode A/C Ventilator Mode A/C Ventilator Mode A/C Ventilator Mode A/C Ventilator Mode A/C Ventilator Mode A/C Ventilator Tidal Volume 500 Setting Ventilator Tidal Volume 500 Setting Ventilator Tidal Volume 500 Setting Ventilator Tidal Volume 500 Setting Ventilator Tidal Volume 500 Setting Ventilator Tidal Volume 500 Setting Ventilator Tidal Volume 500 Setting Ventilator Tidal Volume 500 Setting Ventilator Tidal Volume 500 Setting Ventilator Tidal Volume 500 Setting Ventilator Tidal Volume 500 Setting Ventilator Respiratory Rate 18 Setting Ventilator Respiratory Rate 18 Setting Ventilator Respiratory Rate 18 Setting Ventilator Respiratory Rate 18 Setting Ventilator Respiratory Rate 18 Setting Ventilator Respiratory Rate 18 Setting Ventilator Respiratory Rate 18 Setting Ventilator Respiratory Rate 18 Setting Ventilator Respiratory Rate 18 Setting Ventilator Respiratory Rate 18 Setting Ventilator Respiratory Rate 18 Setting Actual Respiratory Rate 25 Actual Respiratory Rate 25 Actual Respiratory Rate 26 Actual Respiratory Rate 26 Actual Respiratory Rate 23 Actual Respiratory Rate 26 Actual Respiratory Rate 26 Actual Respiratory Rate 26 Actual Respiratory Rate 25 Actual Respiratory Rate 25 Positive End Expiratory 5 Pressure Positive End Expiratory 5 Pressure Positive End Expiratory 5 Pressure Positive End Expiratory 5 Pressure Positive End Expiratory 5 Pressure Positive End Expiratory 5 Pressure Positive End Expiratory 5 Pressure Positive End Expiratory 5 Pressure Positive End Expiratory 5 Pressure Positive End Expiratory 5 Pressure Positive End Expiratory 5 Pressure Peak Inspiratory Airway 18 Pressure Peak Inspiratory Airway 23 Pressure Peak Inspiratory Airway 21 Pressure Peak Inspiratory Airway 20 Pressure Peak Inspiratory Airway 23 Pressure Peak Inspiratory Airway 24 Pressure Peak Inspiratory Airway 24 Pressure Peak Inspiratory Airway 24 Pressure Peak Inspiratory Airway 20 Pressure Peak Inspiratory Airway 20 Pressure Results - Laboratory Findings CBC and BMP: 03/18/17 03:35 03/18/17 03:35 ABG ABG pH 7.51 pH Units (7.32-7.45) H 03/18/17 04:47 ABG pCO2 38 mmHg (35-45) 03/18/17 04:47 ABG pO2 67 mmHg (85-104) L 03/18/17 04:47 ABG O2 Saturation 95 % (95-98) 03/18/17 04:47 PT/INR, D-dimer PT 12.5 Seconds (9.4-12.1) H 03/13/17 13:43 Abnormal lab findings: Abnormal lab results WBC 19.1 K/mcL (4.3-11.1) H 03/18/17 03:35 RBC 2.73 M/mcL (4.19-5.50) L 03/18/17 03:35 Hgb 8.2 g/dL (12.9-16.9) L 03/18/17 03:35 Hct 25.1 % (37.5-50.1) L 03/18/17 03:35 RDW 17.0 % (11.5-14.5) H 03/18/17 03:35 Neutrophils # 15.8 K/mcL (1.6-8.9) H 03/18/17 03:35 Monocytes # 1.7 K/mcL (0.0-1.3) H 03/18/17 03:35 Nucleated RBCs/100 WBC 0.2 /100 WBC (0) H 03/14/17 05:45 Platelet Estimate Slight increase (Normal) H 03/13/17 13:43 PT 12.5 Seconds (9.4-12.1) H 03/13/17 13:43 APTT 36.4 Seconds (26.0-36.0) H 03/13/17 13:43 ABG pH 7.51 pH Units (7.32-7.45) H 03/18/17 04:47 ABG pO2 67 mmHg (85-104) L 03/18/17 04:47 ABG HCO3 31 mEq/L (21-27) H 03/18/17 04:47 ABG Total CO2 32 mEq/L (20-26) H 03/18/17 04:47 ABG Base Excess 7 mEq/L (-2 to 3) H 03/18/17 04:47 BUN 66 mg/dL (8-23) H 03/18/17 03:35 Creatinine 5.48 mg/dL (0.70-1.30) H 03/18/17 03:35 Est GFR ( Amer) 13 (> 60) L 03/18/17 03:35 Est GFR (Non-Af Amer) 10 (> 60) L 03/18/17 03:35 POC Glucose 311 (58-89) H 03/17/17 21:12 Calculated Osmolality 315 (280-300) H 03/18/17 03:35 Alkaline Phosphatase 331 Units/L (34-104) H 03/13/17 13:43 Troponin I 0.07 ng/mL (< 0.04) H* 03/16/17 21:10 B-Natriuretic Peptide 2742 pg/mL (Less than 100) H 03/13/17 22:40 Albumin 3.3 g/dL (3.5-5.7) L 03/13/17 13:43 Globulin 3.7 g/dL (2.4-3.5) H 03/13/17 13:43 Albumin/Globulin Ratio 0.9 (1.1-2.2) L 03/13/17 13:43 Digoxin 0.5 ng/mL (0.8-2.0) L 03/13/17 13:43 Phenytoin 4.3 mcg/mL (10.0-20.0) L 03/15/17 04:12 Valproic Acid 14 mcg/mL (50-100) L 03/13/17 13:43 - Microbiology Findings Microbiology Findings: Microbiology, Last 48 Hours 03/15/17 10:02 Sputum Culture - Preliminary Sputum Pseudomonas aeruginosa - Diagnostic Findings Chest x-ray: report reviewed, image reviewed - Clinical Findings Intake & Output: Intake & Output 03/17/17 03/17/17 03/18/17 15:59 23:59 07:59 Intake Total 202.5 / 202.5 516 / 516 180 / 180 Output Total 0 / 0 0 / 0 Balance 202.5 / 202.5 516 / 516 180 / 180 Weight 85.1 kg Consult Discharge Plan - Plan Referrals: NONE,PCP [Primary Care Provider] -
[2017-03-18] MEDS ORDERED: 0.9 % Sodium Chloride 250 ML IVC PRN (07:45)
--- NOTE | 2017-03-18 08:23 | Nephrology Progress Note ---
Date of Encounter: 03/18/17 Time of Encounter: 08:22 - Assessment and Plan (1) ESRD (end stage renal disease) on dialysis Current Visit: No Status: Chronic Patient is a previous [facility] dialysis patient who went to [facility] for his treatments prior to being transferred to [facility] a number of months ago. Continue HD today as scheduled MWF Renal diet when diet advanced Strict I/Os Avoid nephrotoxins if possible Patient may need an additional UF tomorrow if he shows signs of fluid overload (2) Anemia Current Visit: Yes Status: Acute Goal hgb 10-11 Transfuse per parameters Anemia workup: Iron studies, Vit D, Vit 12, Folate pending Continue to monitor Qualifiers: Anemia type: due to chronic kidney disease Chronic kidney disease stage: on chronic dialysis Qualified Code(s): N18.6 - End stage renal disease; D63.1 - Anemia in chronic kidney disease; D63.1 - Anemia in chronic kidney disease; Z99.2 - Dependence on renal dialysis; Z99.2 - Dependence on renal dialysis; Z99.2 - Dependence on renal dialysis; Z99.2 - Dependence on renal dialysis (3) Pneumonia Current Visit: Yes Status: Acute Management per critical care team Avoid nephrotoxins Qualifiers: Pneumonia type: due to unspecified organism Laterality: bilateral Lung location: unspecified part of lung Qualified Code(s): J18.9 - Pneumonia, unspecified organism (4) Acute and chronic respiratory failure Current Visit: Yes Status: Acute Patient with a trach. Patient is vent dependent. Management per critical care team. Qualifiers: Respiratory failure complication: hypoxia Qualified Code(s): J96.21 - Acute and chronic respiratory failure with hypoxia (5) Cardiac arrest Current Visit: Yes Status: Acute Management per critical care team/ cardiology (6) Hypertension Current Visit: Yes Status: Acute Will continue HD today Titrate antihypertensive medications as needed, may need to change Metoprolol to scheduled dosing if BP remains elevated Qualifiers: Qualified Code(s): I10 - Essential (primary) hypertension (7) Diabetes mellitus Current Visit: No Status: Chronic Management per primary team 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 mellitus snf insulin use: with snf use Chronic kidney disease stage: on chronic dialysis Qualified Code(s): E11.22 - Type 2 diabetes mellitus with diabetic chronic kidney disease; N18.6 - End stage renal disease; Z99.2 - Dependence on renal dialysis; Z99.2 - Dependence on renal dialysis; Z99.2 - Dependence on renal dialysis; N18.6 - End stage renal disease; N18.6 - End stage renal disease; N18.6 - End stage renal disease ; Z79.4 - buttermaker (current) use of insulin; Z79.4 - buttermaker (current) use of insulin; Z79.4 - senior care (current) use of insulin; Z79.4 - senior care ( current) use of insulin; Z99.2 - Dependence on renal dialysis Subjective Principal diagnosis: PEA Arrest Interval history: Patient seen and examined. He remains on ventilator, off sedation, and is able to nod his head to answer questions. Patient had 25cc UOP in urostomy and is currently receiving HD today. Objective - Vital Signs Vital signs: Vital Signs Temp Pulse Resp BP Pulse Ox 03/18/17 08:00 99.1 F 110 26 160/79 96 03/18/17 07:29 23 100 03/18/17 07:00 105 24 156/77 98 03/18/17 06:00 93 26 147/69 100 03/18/17 05:45 24 140/81 99 03/18/17 05:00 85 20 135/63 100 03/18/17 04:00 95 22 132/66 99 03/18/17 03:34 23 132/62 100 03/18/17 03:00 104 22 145/38 100 03/18/17 02:00 105 24 149/72 95 03/18/17 01:38 26 145/63 95 03/18/17 01:00 101 24 145/63 98 03/18/17 00:50 99.5 F 03/17/17 23:40 96 03/17/17 23:35 25 166/81 98 03/17/17 23:00 115 24 166/81 98 03/17/17 22:00 118 22 165/80 94 03/17/17 21:38 25 167/80 97 03/17/17 21:00 117 23 173/81 98 03/17/17 20:00 99.7 F H 114 22 164/78 97 03/17/17 19:50 21 166/78 99 03/17/17 19:00 102 22 161/73 96 03/17/17 18:38 21 98 03/17/17 18:00 104 24 154/72 98 03/17/17 17:00 98.8 F 97 18 155/70 98 03/17/17 16:00 105 18 161/74 98 03/17/17 15:14 23 154/72 100 03/17/17 15:00 97 18 152/69 100 03/17/17 14:00 90 107/57 100 03/17/17 13:30 18 154/72 100 03/17/17 13:00 97 18 159/74 100 03/17/17 12:00 97 20 152/67 97 03/17/17 11:05 20 152/69 95 03/17/17 11:00 97 20 147/64 99 03/17/17 10:00 98 20 135/64 98 03/17/17 09:43 20 140/62 97 03/17/17 09:00 101 20 135/62 97 Intake and Output 03/17/17 03/18/17 03/18/17 23:59 07:59 15:59 Intake Total 516 / 516 180 / 180 Output Total 0 / 0 0 / 0 Balance 516 / 516 180 / 180 Intake: IV Fluids 55 / 55 PRECEDEX Premix 400 mcg In 100 45 / 45 ml @ 0.2 MCG/KG/HR 4.468 mls/hr IVC .[id number] [facility] Rx#: [id number] Maxipime 1,000 MG In Water for 10 / 10 inj. (sterile) 10 ML @ 150 mls/ hr IVP Q24H [facility] Rx#:[id number] Oral 0 / 0 0 / 0 Tube Feeding 461 / 461 180 / 180 Output: Urostomy 0 / 0 0 / 0 Other: Stool Size Moderate Stool Consistency loose soft Stool Color Brown # Bowel Movements 1 Weight 85.1 kg Blood Glucose* 311 254 149 Patient Weight 03/18/17 23:59 Weight 85.1 kg - General Appearance General appearance: Present: well-developed, well-nourished, chronically ill EENT: Present: ATNC, mucous membranes dry Neck: Present: supple (trach in place) Additional Comments: trach, on ventilator Cardiology: Present: no edema, regular rate, regular rhythm Gastrointestinal: Present: normoactive bowel sounds, no tenderness, no organomegaly Integumentary: Present: ulcer, erythema (Stage 3 pressure ulcer of left hip) Additional Comments: awake, nods head to answer questions, residual left sided deficits unchanged Musculoskeletal: Present: erythema, decreased ROM (left sided deficits unchanged ) Additional Comments: awake, on ventilator, nods head to questions - Lab 03/18/17 03:35 03/18/17 03:35 Most recent lab results ABG pH 7.51 pH Units (7.32-7.45) H 03/18/17 04:47 ABG pCO2 38 mmHg (35-45) 03/18/17 04:47 ABG pO2 67 mmHg (85-104) L 03/18/17 04:47 ABG HCO3 31 mEq/L (21-27) H 03/18/17 04:47 ABG O2 Saturation 95 % (95-98) 03/18/17 04:47 Calcium 9.8 mg/dL (8.6-10.3) 03/18/17 03:35 Phosphorus 4.1 mg/dL (2.7-4.5) 03/13/17 15:34 Magnesium 2.2 mg/dL (1.6-2.6) 03/13/17 15:34 Consult Discharge Plan - Plan Referrals: NONE,PCP [Primary Care Provider] -
[2017-03-18 09:46] LABS: Phenytoin Percent Free 15.4 % (8.0-14.0); Phenytoin Type of Draw NOT PROVIDED
[2017-03-18] MEDS: Pantoprazole 40 MG VIAL IVP SCH (09:53)
[2017-03-18] MEDS: *HR* Amiodarone 200 MG TABLET PO SCH (09:54)
[2017-03-18] MEDS: Valproic Acid INJ 250 MG in 0.9 % Sodium Chloride 100 ML IVPB SCH ×2 (09:56→22:10)
[2017-03-18 12:27] LABS: % Iron Saturation 33 % (20-55); Iron 58 mcg/dL (65-175); Transferrin 125 mg/dL (203-362)
[2017-03-18] MEDS: *HR* Heparin 5,000 UNIT/ML VIAL SQ SCH ×2 (15:26→20:42)
--- NOTE | 2017-03-18 17:21 | Electrocardiograph Report ---
[address] [place] [address] Test Date: 2017-03-17 Pat Name: Donovan Bourne Department: 109 Room: [facility] Gender: M Performance Specialist: : [id number] Requested By: Roney Irwin Order Number: [id number] Reading MD: Rosanna Engle Measurements Intervals [place] Rate: 103 P: 41 WI: 168 QRS: 54 QRSD: 91 T: 86 QT: 330 QTc: 389 Interpretive Statements SINUS TACHYCARDIA ST DEVIATION AND MODERATE T-WAVE ABNORMALITY, CONSIDER LATERAL ISCHEMIA Electronically Signed On 03-18-2017 17:19:31 EST by Rosanna Engle
[2017-03-18] MEDS: Cefepime HCl 1,000 MG in Water for inj. (sterile) 10 ML IVP SCH (17:24)
[2017-03-18] MEDS: Chlorhexidine Rinse 15 ML MOUTHWASH MM SCH (20:43)
[2017-03-19] MEDS: Insulin LISPRO 300 UNITS/3 ML VIAL SQ SCH ×6 (00:41→21:01)
[2017-03-19] MEDS: Ipratropium/Albuterol Neb 3 ML IH SCH ×6 (03:26→23:34)
[2017-03-19] MEDS ORDERED: Insulin LISPRO 300 UNITS/3 ML VIAL SQ SCH (04:27)
[2017-03-19 04:42] LABS: ABG Base Excess 5 mEq/L (-2 to 3); ABG HCO3 30 mEq/L (21-27); ABG Oxygen Saturation 95 % (95-98); ABG PCO2 45 mmHg (35-45); ABG PH 7.43 pH Units (7.32-7.45); ABG PO2 76 mmHg (85-104); ABG TCO2 31 mEq/L (20-26); Blood Gas Modality ASSIST CONTROL; Blood Gas PEEP 5 cm H2O; Blood Gas Respiration Rate 18; Blood Gas VT 500 cc
[2017-03-19] MEDS: *HR* Heparin 5,000 UNIT/ML VIAL SQ SCH ×3 (04:53→21:01)
[2017-03-19 05:44] LABS: Basophils # 0.1 K/mcL (0.0-0.2); Basophils % 0.6 %; Eosinophils # 0.2 K/mcL (0.0-0.6); Eosinophils % 1.3 %; Hematocrit 26.5 % (37.5-50.1); Hemoglobin 8.4 g/dL (12.9-16.9); Immature Granulocytes % 0.8 % (0-4); Lymphocytes # 0.8 K/mcL (0.6-4.6); Lymphocytes % 5.7 %; Mean Corpuscular HGB Conc 31.7 g/dL (31.6-35.5); Mean Corpuscular Hemoglobin 30.5 pg (28.0-33.3); Mean Corpuscular Volume 96.4 fL (83.0-100.0); Mean Platelet Volume 11.4 fL (9.4-12.4); Monocytes # 1.1 K/mcL (0.0-1.3); Monocytes % 7.7 %; Platelet Count 374 K/mcL (140-400); Red Blood Count 2.75 M/mcL (4.19-5.50); Segmented Neutrophils % 83.9 %
[2017-03-19 05:55] LABS: Calcium 9.7 mg/dL (8.6-10.3); Magnesium 2.3 mg/dL (1.6-2.6); Potassium 3.8 mEq/L (3.5-5.1)
--- NOTE | 2017-03-19 07:24 | Nephrology Progress Note ---
Date of Encounter: 03/19/17 Time of Encounter: 07:24 - Assessment and Plan (1) ESRD (end stage renal disease) on dialysis Current Visit: No Status: Chronic Patient is a previous [facility] dialysis patient who went to [facility] for his treatments prior to being transferred to [facility] a number of months ago. Anticipate UF today 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 if possible (2) Anemia Current Visit: Yes Status: Acute Goal hgb 10-11 Transfuse per parameters Anemia workup: Iron 58, iron % sat 33, Folate 43, Vit B12 level 563 Continue to monitor Qualifiers: Anemia type: due to chronic kidney disease Chronic kidney disease stage: on chronic dialysis Qualified Code(s): N18.6 - End stage renal disease; D63.1 - Anemia in chronic kidney disease; D63.1 - Anemia in chronic kidney disease; Z99.2 - Dependence on renal dialysis; Z99.2 - Dependence on renal dialysis; Z99.2 - Dependence on renal dialysis; Z99.2 - Dependence on renal dialysis (3) Pneumonia Current Visit: Yes Status: Acute Management per critical care team Avoid nephrotoxins Qualifiers: Pneumonia type: due to Pseudomonas Laterality: bilateral Lung location: unspecified part of lung Qualified Code(s): J15.1 - Pneumonia due to Pseudomonas (4) Acute and chronic respiratory failure Current Visit: Yes Status: Acute Patient with a trach. Patient is vent dependent. Management per critical care team. Qualifiers: Respiratory failure complication: hypoxia Qualified Code(s): J96.21 - Acute and chronic respiratory failure with hypoxia (5) Cardiac arrest Current Visit: Yes Status: Acute Management per critical care team/ cardiology (6) Hypertension Current Visit: Yes Status: Acute Will continue UF today Titrate antihypertensive medications as needed, may need to change Metoprolol to scheduled dosing if BP remains elevated Qualifiers: Hypertension type: unspecified Qualified Code(s): I10 - Essential (primary ) hypertension (7) Diabetes mellitus Current Visit: No Status: Chronic Management per primary team 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 mellitus retirement insulin use: with retirement use Chronic kidney disease stage: on chronic dialysis Qualified Code(s): E11.22 - Type 2 diabetes mellitus with diabetic chronic kidney disease; N18.6 - End stage renal disease; N18.6 - End stage renal disease; N18.6 - End stage renal disease; N18.6 - End stage renal disease; Z79.4 - 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 He remains on ventilator, off sedation, and is able to nod his head to answer questions. Patient had 25cc UOP in urostomy and had a fever ovenihgt. Anticipate UF today. Objective - Vital Signs Vital signs: Vital Signs Temp Pulse Resp BP Pulse Ox 03/19/17 06:00 105 21 112/58 100 03/19/17 05:44 21 124/65 98 03/19/17 05:00 111 18 138/63 100 03/19/17 04:34 101 F H 03/19/17 04:00 103 18 151/67 100 03/19/17 03:27 25 99 03/19/17 03:00 107 24 144/68 100 03/19/17 02:00 108 22 142/72 99 03/19/17 01:16 22 150/68 98 03/19/17 01:00 107 22 150/68 99 03/19/17 00:45 100 F H 03/19/17 00:00 99 22 135/62 100 03/18/17 23:35 23 124/62 100 03/18/17 23:00 100 26 129/71 100 03/18/17 22:00 107 26 112/61 100 03/18/17 21:24 25 118/61 100 03/18/17 21:00 107 24 126/58 100 03/18/17 20:12 27 140/67 100 03/18/17 20:00 117 24 147/90 100 03/18/17 19:54 113 03/18/17 19:00 114 26 136/68 99 03/18/17 18:00 112 25 127/68 100 18 17:37 25 100 18 17:00 120 25 103/60 100 18 16:00 98.7 F 116 30 129/71 98 18 15:52 25 100 18 15:00 115 27 116/62 100 18 14:00 115 27 125/64 100 03/18/17 13:55 98.3 F 14 125/66 03/18/17 13:40 111/75 03/18/17 13:25 121/71 03/18/17 13:10 129/70 03/18/17 13:00 118 28 122/73 100 03/18/17 12:55 98/62 03/18/17 12:40 102/67 03/18/17 12:25 101/68 03/18/17 12:16 99.0 F 03/18/17 12:10 119/81 03/18/17 12:00 118 24 107/66 99 03/18/17 11:55 132/73 03/18/17 11:40 119/72 03/18/17 11:25 125/75 03/18/17 11:10 121/74 03/18/17 11:00 120 23 127/74 98 03/18/17 10:55 138/77 03/18/17 10:40 119/72 03/18/17 10:25 164/84 03/18/17 10:10 99.0 F 15 173/88 03/18/17 10:00 120 25 163/83 92 03/18/17 09:22 31 150/76 96 03/18/17 09:00 135 25 156/95 96 03/18/17 08:40 28 100 03/18/17 08:00 99.1 F 110 26 160/79 96 03/18/17 07:30 99.1 F 03/18/17 07:29 23 100 Intake and Output 03/18/17 03/18/17 03/19/17 15:59 23:59 07:59 Intake Total 876.5 / 876.5 475 / 475 222 / 222 Output Total 3600 / 3600 Balance -2723.5 / -2723.5 475 / 475 222 / 222 Intake: IV Fluids 102.5 / 102.5 10 / 10 Maxipime 1,000 MG In Water for inj. (sterile) 10 ML @ 150 mls/ hr IVP Q24H [facility] Rx#:[id number] Depacon 250 MG In 0.9 % Sodium 102.5 / 102.5 Chloride 100 ML @ 100 mls/hr IVPB BID [facility] Rx#:[id number] Oral 0 / 0 Tube Feeding 174 / 174 465 / 465 222 / 222 Intake, Rinseback and Flushes 600 / 600 Output: Urine 0 / 0 Total Dialysis (HD) Output 3600 / 3600 Other: Stool Size Moderate Stool Consistency loose Stool Color Brown # Bowel Movements 2 Weight 82.4 kg Blood Glucose* 115 185 315 Hemodialysis Net Fluid Removed 3000 (mL) Patient Weight 03/19/17 23:59 Weight 82.4 kg - General Appearance General appearance: Present: well-developed, well-nourished, chronically ill EENT: Present: ATNC, mucous membranes dry Neck: Present: supple (trach in place) Additional Comments: trach, on ventilator Respiratory: Present: course breath sounds Cardiology: Present: no murmurs, no rub, no gallops, edema, regular rate, regular rhythm (1+) Gastrointestinal: Present: normoactive bowel sounds, no tenderness, no organomegaly Additional Comments: urostomy in place Integumentary: Present: ulcer (Stage 3 pressure ulcer of left hip), erythema Neurologic: Present: aphasia (awake, nods head to answer questions, residual left sided deficits unchanged) Musculoskeletal: Present: erythema, decreased ROM (left sided deficits unchanged ) Psychiatric: Present: cooperative (awake, on ventilator, nods head to questions) - Lab 03/19/17 05:22 03/19/17 05:22 Most recent lab results ABG pH 7.43 pH Units (7.32-7.45) 03/19/17 04:38 ABG pCO2 45 mmHg (35-45) 03/19/17 04:38 ABG pO2 76 mmHg (85-104) L 03/19/17 04:38 ABG HCO3 30 mEq/L (21-27) H 03/19/17 04:38 ABG O2 Saturation 95 % (95-98) 03/19/17 04:38 Calcium 9.7 mg/dL (8.6-10.3) 03/19/17 05:22 Phosphorus 4.1 mg/dL (2.7-4.5) 03/13/17 15:34 Magnesium 2.3 mg/dL (1.6-2.6) 03/19/17 05:22 Consult Discharge Plan - Plan Referrals: NONE,PCP [Primary Care Provider] -
--- NOTE | 2017-03-19 07:41 | Pulmonology Progress Note ---
<Amador Patel W - Last Filed: 03/19/17 12:53> Date of Encounter: 03/19/17 Assessment and Plan (1) Acute respiratory failure Current Visit: No Status: Acute Qualifiers: Respiratory failure complication: hypoxia Qualified Code(s): J96.01 - Acute respiratory failure with hypoxia (2) ESRD (end stage renal disease) on dialysis Current Visit: No Status: Chronic (3) Altered mental state Current Visit: Yes Status: Acute Qualifiers: Altered mental status type: coma Coma depth: [place] coma 3-8 Coma timing : in the field (EMT or ambulance) Qualified Code(s): R40.2431 - [place] coma scale score 3-8, in the field [EMT or ambulance] (4) Ischemic stroke of frontal lobe Current Visit: No Status: Acute (5) Pneumonia Current Visit: Yes Status: Acute Qualifiers: Pneumonia type: due to Pseudomonas Laterality: bilateral Lung location: unspecified part of lung Qualified Code(s): J15.1 - Pneumonia due to Pseudomonas (6) History of seizure disorder Current Visit: Yes Status: Acute (7) Hypertension Current Visit: Yes Status: Acute Qualifiers: Hypertension type: unspecified Qualified Code(s): I10 - Essential (primary ) hypertension (8) DVT prophylaxis Current Visit: Yes Status: Acute Objective PUL Vital signs: Last Vital Signs Temp 99.2 F 03/19/17 08:10 Pulse 95 03/19/17 09:00 Resp 21 03/19/17 09:00 BP 128/59 03/19/17 09:00 Pulse Ox 100 03/19/17 09:00 Ventilator Settings Ventilator Settings: Ventilator Settings, Last 8 Hours Ventilator Mode A/C Ventilator Mode A/C Ventilator Mode A/C Ventilator Mode A/C Ventilator Tidal Volume 500 Setting Ventilator Tidal Volume 500 Setting Ventilator Tidal Volume 500 Setting Ventilator Tidal Volume 500 Setting Ventilator Respiratory Rate 18 Setting Ventilator Respiratory Rate 18 Setting Ventilator Respiratory Rate 18 Setting Ventilator Respiratory Rate 18 Setting Actual Respiratory Rate 26 Actual Respiratory Rate 21 Actual Respiratory Rate 18 Actual Respiratory Rate 25 Positive End Expiratory 5 Pressure Positive End Expiratory 5 Pressure Positive End Expiratory 5 Pressure Positive End Expiratory 5 Pressure Peak Inspiratory Airway 38 Pressure Peak Inspiratory Airway 20 Pressure Peak Inspiratory Airway 21 Pressure Peak Inspiratory Airway 20 Pressure Results - Laboratory Findings CBC and BMP: 03/19/17 05:22 03/19/17 05:22 ABG ABG pH 7.43 pH Units (7.32-7.45) 03/19/17 04:38 ABG pCO2 45 mmHg (35-45) 03/19/17 04:38 ABG pO2 76 mmHg (85-104) L 03/19/17 04:38 ABG O2 Saturation 95 % (95-98) 03/19/17 04:38 PT/INR, D-dimer PT 12.5 Seconds (9.4-12.1) H 03/13/17 13:43 Abnormal lab findings: Abnormal lab results WBC 14.3 K/mcL (4.3-11.1) H 03/19/17 05:22 RBC 2.75 M/mcL (4.19-5.50) L 03/19/17 05:22 Hgb 8.4 g/dL (12.9-16.9) L 03/19/17 05:22 Hct 26.5 % (37.5-50.1) L 03/19/17 05:22 RDW 17.0 % (11.5-14.5) H 03/19/17 05:22 Neutrophils # 12.0 K/mcL (1.6-8.9) H 03/19/17 05:22 Nucleated RBCs/100 WBC 0.2 /100 WBC (0) H 03/14/17 05:45 Platelet Estimate Slight increase (Normal) H 03/13/17 13:43 PT 12.5 Seconds (9.4-12.1) H 03/13/17 13:43 APTT 36.4 Seconds (26.0-36.0) H 03/13/17 13:43 ABG pO2 76 mmHg (85-104) L 03/19/17 04:38 ABG HCO3 30 mEq/L (21-27) H 03/19/17 04:38 ABG Total CO2 31 mEq/L (20-26) H 03/19/17 04:38 ABG Base Excess 5 mEq/L (-2 to 3) H 03/19/17 04:38 BUN 61 mg/dL (8-23) H 03/19/17 05:22 Creatinine 4.92 mg/dL (0.70-1.30) H 03/19/17 05:22 Est GFR ( Amer) 14 (> 60) L 03/19/17 05:22 Est GFR (Non-Af Amer) 12 (> 60) L 03/19/17 05:22 Glucose 352 mg/dL (70-105) H 03/19/17 05:22 POC Glucose 313 (58-89) H 03/19/17 00:33 Calculated Osmolality 323 (280-300) H 03/19/17 05:22 Iron 58 mcg/dL (65-175) L 03/18/17 11:18 Transferrin 125 mg/dL (203-362) L 03/18/17 11:18 Alkaline Phosphatase 331 Units/L (34-104) H 03/13/17 13:43 Troponin I 0.07 ng/mL (< 0.04) H* 03/16/17 21:10 B-Natriuretic Peptide 2742 pg/mL (Less than 100) H 03/13/17 22:40 Albumin 3.3 g/dL (3.5-5.7) L 03/13/17 13:43 Globulin 3.7 g/dL (2.4-3.5) H 03/13/17 13:43 Albumin/Globulin Ratio 0.9 (1.1-2.2) L 03/13/17 13:43 25-OH Vitamin D Total 24 ng/mL (30-80) L 03/18/17 11:18 Folate 43.0 ng/mL (3.0-16.0) H 03/18/17 11:18 PTH Intact 395.7 pg/ml (10.0-65.0) H 03/18/17 11:18 Digoxin 0.5 ng/mL (0.8-2.0) L 03/13/17 13:43 Phenytoin 4.3 mcg/mL (10.0-20.0) L 03/15/17 04:12 Free Phenytoin 0.8 ug/mL (1.0-2.5) L 03/15/17 04:12 Total Phenytoin 5.2 ug/mL (10.0-20.0) L 03/15/17 04:12 Percent Free Phenytoin 15.4 % (8.0-14.0) H 03/15/17 04:12 Valproic Acid 14 mcg/mL (50-100) L 03/13/17 13:43 - Microbiology Findings Microbiology Findings: Microbiology, Last 48 Hours 02/02/18 10:02 Sputum Culture - Final Sputum P. aeruginosa MDRO - Clinical Findings Intake & Output: Intake & Output 03/18/17 03/19/17 03/19/17 23:59 07:59 15:59 Intake Total 577.5 / 577.5 222 / 222 248 / 248 Output Total 0 / 0 Balance 577.5 / 577.5 222 / 222 248 / 248 Weight 82.4 kg Consult Discharge Plan - Plan Referrals: NONE,PCP [Primary Care Provider] - - Attending Attestation I examined this patient and my medical decision-making was reviewed with the Resident Physician. I agree with the documented findings, disposition and treatment plan as described except to the extent set forth below. We independently had [id number] contact with the patient Patient seen and examined at bedside Labs, radiology, chart personally reviewed. Management was reviewed during multidisciplinary critical care rounds. RESEARCH MICROBIOLOGIST: Mental status at baseline Pulm: Improvement in oxygenation after volume removal with dialysis yesterday he is chronic trach dependent CPAP trial today. Continue treatment for pneumonia Cards: Blood pressure stable and monitored on telemetry FEN-GI: Continue enteral nutrition per dietary recommendations Renal: ESRD plan for ultrafiltration today per nephrology recs ID: He will need 14 days of coverage for Pseudomonas pneumonia white count trending down Heme/Onc: DVT prophylaxis given Endo: Glucose Monitored Integ/MSK: Skin Care per routine ICU Nursing Protocol to prevent ulcers. Lines: All lines examined without evidence of infection : Dispo: He will be [facility] to [facility] tomorrow if continues current level of stability CODE: Full <Mitchell Worthy R - Last Filed: 03/19/17 14:22> Date of Encounter: 03/19/17 Time of Encounter: 07:41 Assessment and Plan (1) Acute and chronic respiratory failure Current Visit: Yes Status: Acute Patient is on a ventilator chronically. There were numerous attempts to try to wean patient from the ventilator but there has been no success. Prior to arrival to [facility] emergency department the patient was a roughly on 100% FiO2 with a PEEP of 10. The patient is down to FiO2 40%. He is doing well with this. Bilateral infiltrates on CXR: likely combination of infectious and cardiogenic edema. The patient does have a left ventricular EF of 45%. The patient has done well on the ventilator as he is ventilator dependent at baseline. We will continue to monitor patient's respiratory status. In addition we will continue to attempt to pull off fluid. Neurology, cardiology, nephrology are all consulted and participating in care at this time. Sputum cultures shows Pseudomonas sensitive to Cefepime - day #6 of 14 Qualifiers: Respiratory failure complication: hypoxia Qualified Code(s): J96.21 - Acute and chronic respiratory failure with hypoxia (2) Pneumonia Current Visit: Yes Status: Acute Likely healthcare associated pneumonia - sputum culture shows Pseudomonas. Continue Cefepime Temp elevated to 101 last night - responded to tylenol - continue to monitor Blood cultures 03/13 negative Repeat cultures drawn on 03/18 Qualifiers: Pneumonia type: due to Pseudomonas Laterality: bilateral Lung location: unspecified part of lung Qualified Code(s): J15.1 - Pneumonia due to Pseudomonas (3) Pulmonary edema Current Visit: No Status: Acute Patient's left ventricular ejection fraction is roughly 45% without any overt diastolic dysfunction Dialysis per nephrology. We will continue to monitor. He was weaned down on his FiO2 to 40% and has tolerated this well Qualifiers: Chronicity: acute Qualified Code(s): J81.0 - Acute pulmonary edema (4) ESRD (end stage renal disease) on dialysis Current Visit: No Status: Chronic Dialysis per nephrology (5) PEA (Pulseless electrical activity) Current Visit: No Status: Resolved s/p brief cardiac arrest and evaluated by cardiology. Amiodarone for ventricular arrhythmia. (6) Hypertension Current Visit: Yes Status: Acute Continue Lopressor Qualifiers: Hypertension type: unspecified Qualified Code(s): I10 - Essential (primary ) hypertension (7) Insulin dependent diabetes mellitus Current Visit: No Status: Chronic Increased to high dose SSI - add Levemir 20 U (8) History of seizure disorder Current Visit: Yes Status: Acute On valproic acid and phenytoin (9) Altered mental state Current Visit: Yes Status: Acute Intermittently follows commands. No new focal deficits. Qualifiers: Altered mental status type: coma Coma depth: [place] coma 3-8 Coma timing : in the field (EMT or ambulance) Qualified Code(s): R40.2431 - [place] coma scale score 3-8, in the field [EMT or ambulance] (10) Ischemic stroke of frontal lobe Current Visit: No Status: Acute (11) DVT prophylaxis Current Visit: Yes Status: Acute Subq heparin Subjective Principal diagnosis: PEA Arrest Interval history: Pt has done well overnight. Mental status remains about the same, he is able to respond to commands and shake his head yes/no. He remains hemodynamically stable. His temp did elevate to 101 last night and was given tylenol. Objective PUL Vital signs: Last Vital Signs Temp 101 F H 03/19/17 04:34 Pulse 105 03/19/17 06:00 Resp 21 03/19/17 07:37 BP 146/71 03/19/17 07:37 Pulse Ox 100 03/19/17 07:37 General appearance: no acute distress ENT: oropharynx moist Auscultation: bilateral: rhonchi Cardiovascular: irregular rhythm Gastrointestinal: normoactive bowel sounds Integumentary: decubitus ulcer Extremities: edema (mild bilaterally) other (weakness in left arm consistent with prior evaluations) Ventilator Settings Ventilator Settings: Ventilator Settings, Last 8 Hours Ventilator Mode A/C Ventilator Mode A/C Ventilator Mode A/C Ventilator Mode A/C Ventilator Mode A/C Ventilator Mode A/C Ventilator Tidal Volume 500 Setting Ventilator Tidal Volume 500 Setting Ventilator Tidal Volume 500 Setting Ventilator Tidal Volume 500 Setting Ventilator Tidal Volume 500 Setting Ventilator Tidal Volume 500 Setting Ventilator Respiratory Rate 18 Setting Ventilator Respiratory Rate 18 Setting Ventilator Respiratory Rate 18 Setting Ventilator Respiratory Rate 18 Setting Ventilator Respiratory Rate 18 Setting Ventilator Respiratory Rate 18 Setting Actual Respiratory Rate 26 Actual Respiratory Rate 21 Actual Respiratory Rate 18 Actual Respiratory Rate 25 Actual Respiratory Rate 22 Actual Respiratory Rate 22 Positive End Expiratory 5 Pressure Positive End Expiratory 5 Pressure Positive End Expiratory 5 Pressure Positive End Expiratory 5 Pressure Positive End Expiratory 5 Pressure Positive End Expiratory 5 Pressure Peak Inspiratory Airway 38 Pressure Peak Inspiratory Airway 20 Pressure Peak Inspiratory Airway 21 Pressure Peak Inspiratory Airway 20 Pressure Peak Inspiratory Airway 18 Pressure Peak Inspiratory Airway 21 Pressure Results - Laboratory Findings CBC and BMP: 03/19/17 05:22 03/19/17 05:22 ABG ABG pH 7.43 pH Units (7.32-7.45) 03/19/17 04:38 ABG pCO2 45 mmHg (35-45) 03/19/17 04:38 ABG pO2 76 mmHg (85-104) L 03/19/17 04:38 ABG O2 Saturation 95 % (95-98) 03/19/17 04:38 PT/INR, D-dimer PT 12.5 Seconds (9.4-12.1) H 03/13/17 13:43 Abnormal lab findings: Abnormal lab results WBC 14.3 K/mcL (4.3-11.1) H 03/19/17 05:22 RBC 2.75 M/mcL (4.19-5.50) L 03/19/17 05:22 Hgb 8.4 g/dL (12.9-16.9) L 03/19/17 05:22 Hct 26.5 % (37.5-50.1) L 03/19/17 05:22 RDW 17.0 % (11.5-14.5) H 03/19/17 05:22 Neutrophils # 12.0 K/mcL (1.6-8.9) H 03/19/17 05:22 Nucleated RBCs/100 WBC 0.2 /100 WBC (0) H 03/14/17 05:45 Platelet Estimate Slight increase (Normal) H 03/13/17 13:43 PT 12.5 Seconds (9.4-12.1) H 03/13/17 13:43 APTT 36.4 Seconds (26.0-36.0) H 03/13/17 13:43 ABG pO2 76 mmHg (85-104) L 03/19/17 04:38 ABG HCO3 30 mEq/L (21-27) H 03/19/17 04:38 ABG Total CO2 31 mEq/L (20-26) H 03/19/17 04:38 ABG Base Excess 5 mEq/L (-2 to 3) H 03/19/17 04:38 BUN 61 mg/dL (8-23) H 03/19/17 05:22 Creatinine 4.92 mg/dL (0.70-1.30) H 03/19/17 05:22 Est GFR ( Amer) 14 (> 60) L 03/19/17 05:22 Est GFR (Non-Af Amer) 12 (> 60) L 03/19/17 05:22 Glucose 352 mg/dL (70-105) H 03/19/17 05:22 POC Glucose 313 (58-89) H 03/19/17 00:33 Calculated Osmolality 323 (280-300) H 03/19/17 05:22 Iron 58 mcg/dL (65-175) L 03/18/17 11:18 Transferrin 125 mg/dL (203-362) L 03/18/17 11:18 Alkaline Phosphatase 331 Units/L (34-104) H 03/13/17 13:43 Troponin I 0.07 ng/mL (< 0.04) H* 03/16/17 21:10 B-Natriuretic Peptide 2742 pg/mL (Less than 100) H 03/13/17 22:40 Albumin 3.3 g/dL (3.5-5.7) L 03/13/17 13:43 Globulin 3.7 g/dL (2.4-3.5) H 03/13/17 13:43 Albumin/Globulin Ratio 0.9 (1.1-2.2) L 03/13/17 13:43 25-OH Vitamin D Total 24 ng/mL (30-80) L 03/18/17 11:18 Folate 43.0 ng/mL (3.0-16.0) H 03/18/17 11:18 PTH Intact 395.7 pg/ml (10.0-65.0) H 03/18/17 11:18 Digoxin 0.5 ng/mL (0.8-2.0) L 03/13/17 13:43 Phenytoin 4.3 mcg/mL (10.0-20.0) L 03/15/17 04:12 Free Phenytoin 0.8 ug/mL (1.0-2.5) L 03/15/17 04:12 Total Phenytoin 5.2 ug/mL (10.0-20.0) L 03/15/17 04:12 Percent Free Phenytoin 15.4 % (8.0-14.0) H 03/15/17 04:12 Valproic Acid 14 mcg/mL (50-100) L 03/13/17 13:43 - Microbiology Findings Microbiology Findings: Microbiology, Last 48 Hours 03/15/17 10:02 Sputum Culture - Final Sputum P. aeruginosa MDRO - Clinical Findings Intake & Output: Intake & Output 03/18/17 03/18/17 03/19/17 15:59 23:59 07:59 Intake Total 876.5 / 876.5 475 / 475 222 / 222 Output Total 3600 / 3600 Balance -2723.5 / -2723.5 475 / 475 222 / 222 Weight 82.4 kg
[2017-03-19] MEDS: Pantoprazole 40 MG VIAL IVP SCH (08:28)
[2017-03-19] MEDS: Chlorhexidine Rinse 15 ML MOUTHWASH MM SCH ×2 (08:29→21:01)
[2017-03-19] MEDS: *HR* Amiodarone 200 MG TABLET PO SCH (08:30)
[2017-03-19] MEDS: Valproic Acid INJ 250 MG in 0.9 % Sodium Chloride 100 ML IVPB SCH ×2 (08:44→21:15)
[2017-03-19] MEDS: Insulin DETEMIR 100 UNIT/ML X5UNITS SQ SCH (11:38)
[2017-03-19] MEDS: Cholecalciferol (D-3) 1,000 UNIT TABLET PO SCH (11:39)
[2017-03-19] MEDS ORDERED: 0.9 % Sodium Chloride 250 ML IVC PRN (12:13)
[2017-03-19] MEDS ORDERED: Albumin 25% 25gram/100mL 25 GM/100 ML IV.SOLN IVPB ONE (12:18)
[2017-03-19] MEDS ORDERED: 0.9 % Sodium Chloride 2,000 ML ONE (13:25)
[2017-03-19] MEDS ORDERED: Albumin 25% 12.5gm/50mL 25.0 GM/100 ML IV.SOLN ONE (13:25)
[2017-03-19] MEDS: Leptospermum Honey Gel 44 ML TUBE TP SCH ×2 (14:25→20:58)
[2017-03-19] MEDS: Miconazole w/zinc oxide&karaya 92 APPL/92 GM TUBE TP SCH ×2 (14:26→21:02)
[2017-03-19] MEDS: Cefepime HCl 1,000 MG in Water for inj. (sterile) 10 ML IVP SCH (16:45)
--- NOTE | 2017-03-19 19:18 | Electrocardiograph Report ---
[address] [place] [address] Test Date: 2017-03-16 Pat Name: Donovan Bourne Department: 109 Room: [facility] Gender: M Manager Battery: : 1945 Requested By: Mitchell Worthy Order Number: [id number] Reading MD: Audie Santana MD Measurements Intervals [place] Rate: 99 P: 50 AL: 184 QRS: 68 QRSD: 92 T: 93 QT: 343 QTc: 399 Interpretive Statements SINUS RHYTHM ANTEROLATERAL ISCHEMIA Electronically Signed On 03-19-2017 19:17:25 EST by Audie Santana MD
[2017-03-20] MEDS: Insulin LISPRO 300 UNITS/3 ML VIAL SQ SCH ×7 (00:49→21:45)
[2017-03-20 03:51] LABS: Basophils # 0.1 K/mcL (0.0-0.2); Basophils % 0.6 %; Eosinophils # 0.2 K/mcL (0.0-0.6); Eosinophils % 1.3 %; Hematocrit 25.1 % (37.5-50.1); Hemoglobin 8.1 g/dL (12.9-16.9); Immature Granulocytes % 0.6 % (0-4); Lymphocytes # 0.9 K/mcL (0.6-4.6); Lymphocytes % 4.8 %; Mean Corpuscular HGB Conc 32.3 g/dL (31.6-35.5); Mean Corpuscular Hemoglobin 30.5 pg (28.0-33.3); Mean Corpuscular Volume 94.4 fL (83.0-100.0); Mean Platelet Volume 10.9 fL (9.4-12.4); Monocytes # 1.6 K/mcL (0.0-1.3); Monocytes % 9.1 %; Neutrophils # 14.7 K/mcL (1.6-8.9); Platelet Count 365 K/mcL (140-400); Red Blood Count 2.66 M/mcL (4.19-5.50); Red Cell Distribution Width 17.2 % (11.5-14.5); Segmented Neutrophils % 83.6 %
[2017-03-20] MEDS: Ipratropium/Albuterol Neb 3 ML IH SCH ×5 (03:53→19:36)
[2017-03-20] MEDS: *HR* Heparin 5,000 UNIT/ML VIAL SQ SCH ×3 (04:05→21:44)
[2017-03-20 04:27] LABS: ABG Base Excess 5 mEq/L (-2 to 3); ABG HCO3 29 mEq/L (21-27); ABG Oxygen Saturation 98 % (95-98); ABG PCO2 44 mmHg (35-45); ABG PH 7.44 pH Units (7.32-7.45); ABG PO2 95 mmHg (85-104); ABG TCO2 31 mEq/L (20-26); Blood Gas Modality VC; Blood Gas PEEP 5 cm H2O; Blood Gas Respiration Rate 18; Blood Gas VT 500 cc
[2017-03-20 04:34] LABS: Calcium 10.2 mg/dL (8.6-10.3); Magnesium 2.5 mg/dL (1.6-2.6); Potassium 3.9 mEq/L (3.5-5.1)
[2017-03-20] MEDS: Cholecalciferol (D-3) 1,000 UNIT TABLET PO SCH ×2 (05:20→07:59)
[2017-03-20] MEDS: Dexmedetomidine HCl 400 MCG/100 ML MLS IVC SCH ×2 (05:34→18:07)
--- NOTE | 2017-03-20 06:59 | Nephrology Progress Note ---
Date of Encounter: 03/20/17 Time of Encounter: 06:59 - Assessment and Plan (1) ESRD (end stage renal disease) on dialysis Current Visit: No Status: Chronic Patient is a previous [facility] dialysis patient who went to [facility] for his treatments prior to being transferred to [facility] a number of months ago. 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 if possible youth care worker notes reviewed, anticipate transfer to [facility] on 03/25, as his dialysis chair will become available on 03/26/17 (2) Anemia Current Visit: Yes Status: Acute Goal hgb 10-11 Transfuse per parameters Anemia workup: Iron 58, iron % sat 33, Folate 43, Vit B12 level 563 Continue to monitor Qualifiers: Anemia type: due to chronic kidney disease Chronic kidney disease stage: on chronic dialysis Qualified Code(s): N18.6 - End stage renal disease; D63.1 - Anemia in chronic kidney disease; D63.1 - Anemia in chronic kidney disease; Z99.2 - Dependence on renal dialysis; Z99.2 - Dependence on renal dialysis; Z99.2 - Dependence on renal dialysis; Z99.2 - Dependence on renal dialysis (3) Pneumonia Current Visit: Yes Status: Acute Management per critical care team Avoid nephrotoxins Qualifiers: Pneumonia type: due to Pseudomonas Laterality: bilateral Lung location: unspecified part of lung Qualified Code(s): J15.1 - Pneumonia due to Pseudomonas (4) Acute and chronic respiratory failure Current Visit: Yes Status: Acute Patient with a trach. Patient is vent dependent. Management per critical care team. Qualifiers: Respiratory failure complication: hypoxia Qualified Code(s): J96.21 - Acute and chronic respiratory failure with hypoxia (5) Cardiac arrest Current Visit: Yes Status: Acute Management per critical care team/ cardiology (6) Hypertension Current Visit: Yes Status: Acute Will continue HD today Titrate antihypertensive medications as needed Qualifiers: Hypertension type: unspecified Qualified Code(s): I10 - Essential (primary ) hypertension (7) Diabetes mellitus Current Visit: No Status: Chronic Management per primary team 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 mellitus 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2 - Dependence on renal dialysis (8) Vitamin D deficiency Current Visit: Yes Status: Acute Vit D level 24 Supplement Vit D Subjective Principal diagnosis: PEA Arrest Interval history: Patient seen and examined. He remains on ventilator, off sedation, and is able to nod his head to answer questions. Patient had 10cc UOP in urostomy. Anticipate HD today. youth care worker notes reviewed, anticipate transfer to [facility] on 03/25/17, as his dialysis chair will become available on Objective - Vital Signs Vital signs: Vital Signs Temp Pulse Resp BP Pulse Ox 03/20/17 06:00 104 21 135/68 100 03/20/17 05:23 18 109/59 100 03/20/17 05:00 101 18 109/59 100 03/20/17 04:00 103 22 126/69 99 03/20/17 03:53 18 108/54 96 03/20/17 03:30 99.4 F 03/20/17 03:00 103 18 108/62 97 03/20/17 02:00 101 24 122/61 100 03/20/17 01:05 18 99/52 99 03/20/17 01:00 98 21 99/52 100 03/20/17 00:00 104 21 127/63 99 03/19/17 23:37 99.3 F 03/19/17 23:34 18 118/64 99 03/19/17 23:00 111 18 152/71 99 03/19/17 22:00 109 18 139/66 98 03/19/17 21:28 27 161/75 100 03/19/17 21:00 126 27 161/75 99 03/19/17 20:02 25 159/77 100 03/19/17 20:00 121 29 159/77 100 03/19/17 19:30 98.7 F 03/19/17 19:00 116 22 144/72 100 03/19/17 18:00 114 25 136/78 100 03/19/17 17:00 109 26 119/61 100 03/19/17 16:04 12 114/63 100 03/19/17 16:00 103 24 121/65 98 03/19/17 15:49 98.7 F 03/19/17 15:40 97.9 F 12 114/63 03/19/17 15:25 94/53 03/19/17 15:22 106 03/19/17 15:20 83/53 03/19/17 15:05 107/56 03/19/17 15:00 106 24 83/55 100 03/19/17 14:50 92/55 03/19/17 14:35 97/55 03/19/17 14:20 119/62 03/19/17 14:05 111/58 03/19/17 14:00 97 19 129/67 100 03/19/17 13:50 97.9 F 17 144/71 03/19/17 13:00 98 20 126/70 100 03/19/17 12:00 102 24 132/65 100 03/19/17 11:48 19 130/67 100 03/19/17 11:25 90 03/19/17 11:00 98.5 F 91 19 130/67 100 03/19/17 10:00 93 20 104/55 100 03/19/17 09:00 95 21 128/59 100 03/19/17 08:37 101 03/19/17 08:10 99.2 F 03/19/17 08:00 104 20 146/69 100 03/19/17 07:37 21 146/71 100 Intake and Output 03/19/17 03/19/17 03/20/17 15:59 23:59 07:59 Intake Total 1198.5 / 1198.5 675.5 / 675.5 409 / 409 Output Total 2716 / 2716 0 / 0 5 / 5 Balance -1517.5 / -1517.5 675.5 / 675.5 404 / 404 Intake: IV Fluids 102.5 / 102.5 102.5 / 102.5 5 / 5 PRECEDEX Premix 400 mcg In 100 0 / 0 5 / 5 ml @ 0.2 MCG/KG/HR 4.468 mls/hr IVC .[id number] PRINCE Rx#: [id number] Depacon 250 MG In 0.9 % Sodium 102.5 / 102.5 102.5 / 102.5 Chloride 100 ML @ 100 mls/hr IVPB BID PRINCE Rx#:[id number] Oral 0 / 0 Tube Feeding 496 / 496 573 / 573 404 / 404 Intake, Rinseback and Flushes 600 / 600 Output: Urine 0 / 0 Total Dialysis (HD) Output 2706 / 2706 Urostomy 10 / 10 0 / 0 5 / 5 Other: Stool Size Large Moderate Smear Stool Consistency soft loose loose Stool Characteristics Normal for Patient Stool Color Brown Brown Brown # Bowel Movements 1 1 Weight 79.2 kg Blood Glucose* 180 233 149 Hemodialysis Net Fluid Removed 2104 (mL) Patient Weight 03/20/17 23:59 Weight 79.2 kg - General Appearance General appearance: Present: well-developed, well-nourished, chronically ill EENT: Present: ATNC, mucous membranes dry Neck: Present: supple (trach in place) Respiratory: Present: clear Cardiology: Present: no murmurs, no rub, no gallops, no edema, regular rate, regular rhythm Gastrointestinal: Present: normoactive bowel sounds, no tenderness, no guarding (urostomy in place) Integumentary: Present: no rash, ulcer (Stage 3 pressure ulcer of left hip), erythema Neurologic: Present: aphasia (awake, nods head to answer questions, residual left sided deficits unchanged) Musculoskeletal: Present: erythema, decreased ROM (left sided deficits unchanged ) Psychiatric: Present: cooperative (awake, on ventilator, nods head to questions) - Lab 03/20/17 03:35 03/20/17 03:35 Most recent lab results ABG pH 7.44 pH Units (7.32-7.45) 03/20/17 04:22 ABG pCO2 44 mmHg (35-45) 03/20/17 04:22 ABG pO2 95 mmHg (85-104) 03/20/17 04:22 ABG HCO3 29 mEq/L (21-27) H 03/20/17 04:22 ABG O2 Saturation 98 % (95-98) 03/20/17 04:22 Calcium 10.2 mg/dL (8.6-10.3) 03/20/17 03:35 Phosphorus 4.1 mg/dL (2.7-4.5) 03/13/17 15:34 Magnesium 2.5 mg/dL (1.6-2.6) 03/20/17 03:35 - Allied health notes Allied health notes reviewed: social work Consult Discharge Plan - Plan Referrals: NONE,PCP [Primary Care Provider] -
[2017-03-20] MEDS: Leptospermum Honey Gel 44 ML TUBE TP SCH ×2 (07:53→21:46)
--- NOTE | 2017-03-20 07:53 | Pulmonology Progress Note ---
<Mitchell Worthy - Last Filed: 03/20/17 11:12> Date of Encounter: 03/20/17 Time of Encounter: 07:50 Assessment and Plan (1) Acute and chronic respiratory failure Current Visit: Yes Status: Acute Patient is on a ventilator chronically. There were numerous attempts to try to wean patient from the ventilator but there has been no success. Prior to arrival to [facility] emergency department the patient was a roughly on 100% FiO2 with a PEEP of 10. The patient is down to FiO2 40%. He is doing well with this. Bilateral infiltrates on CXR: likely combination of infectious and cardiogenic edema. The patient does have a left ventricular EF of 45%. The patient has done well on the ventilator as he is ventilator dependent at baseline. We will continue to monitor patient's respiratory status. In addition we will continue to attempt to pull off fluid. Neurology, cardiology, nephrology are all consulted and participating in care at this time. Sputum cultures shows Pseudomonas sensitive to Cefepime - day #7 of 14 Leukocytosis worsening - will add Tobramycin after Dialysis today Qualifiers: Respiratory failure complication: hypoxia Qualified Code(s): J96.21 - Acute and chronic respiratory failure with hypoxia (2) ESRD (end stage renal disease) on dialysis Current Visit: No Status: Chronic Dialysis per nephrology (3) Pneumonia Current Visit: Yes Status: Acute Likely healthcare associated pneumonia - sputum culture shows Pseudomonas. Continue Cefepime No further temp elevations yesterday Blood cultures 03/13 negative Repeat cultures drawn on 03/18 - preliminary negative Qualifiers: Pneumonia type: due to Pseudomonas Laterality: bilateral Lung location: unspecified part of lung Qualified Code(s): J15.1 - Pneumonia due to Pseudomonas (4) Altered mental state Current Visit: Yes Status: Acute Intermittently follows commands. No new focal deficits. Qualifiers: Altered mental status type: coma Coma depth: Kal coma 3-8 Coma timing : in the field (EMT or ambulance) Qualified Code(s): R40.2431 - Bartlett coma scale score 3-8, in the field [EMT or ambulance] (5) Hypertension Current Visit: Yes Status: Acute Continue Lopressor Qualifiers: Hypertension type: unspecified Qualified Code(s): I10 - Essential (primary ) hypertension (6) Insulin dependent diabetes mellitus Current Visit: No Status: Chronic Increased to high dose SSI and Levemir increased to 25U BG 160-200's now (7) History of seizure disorder Current Visit: Yes Status: Acute On valproic acid and phenytoin (8) Ischemic stroke of frontal lobe Current Visit: No Status: Acute (9) DVT prophylaxis Current Visit: Yes Status: Acute Subq heparin Subjective Principal diagnosis: PEA Arrest Interval history: Pt has done well overnight. Mental status remains about the same, he is able to respond to commands and shake his head yes/no. He remains hemodynamically stable. Objective PUL Vital signs: Last Vital Signs Temp 99.4 F 03/20/17 03:30 Pulse 104 03/20/17 07:00 Resp 26 03/20/17 07:32 BP 137/72 03/20/17 07:32 Pulse Ox 100 03/20/17 07:32 General appearance: no acute distress Eyes: nonicteric ENT: oropharynx moist Effort: normal Auscultation: bilateral: rhonchi Cardiovascular: irregular rhythm Gastrointestinal: normoactive bowel sounds Extremities: other (weakenss in left arm consistent with prior evaluations) Ventilator Settings Ventilator Settings: Ventilator Settings, Last 8 Hours Ventilator Mode CPAP Ventilator Mode CPAP Ventilator Mode CPAP Ventilator Mode A/C Ventilator Mode A/C Ventilator Mode A/C Ventilator Mode A/C Ventilator Mode A/C Ventilator Mode A/C Ventilator Mode A/C Ventilator Mode A/C Ventilator Mode A/C Ventilator Mode A/C Ventilator Tidal Volume 500 Setting Ventilator Tidal Volume 500 Setting Ventilator Tidal Volume 500 Setting Ventilator Tidal Volume 500 Setting Ventilator Tidal Volume 500 Setting Ventilator Tidal Volume 500 Setting Ventilator Tidal Volume 500 Setting Ventilator Tidal Volume 500 Setting Ventilator Tidal Volume 500 Setting Ventilator Tidal Volume 500 Setting Ventilator Respiratory Rate 18 Setting Ventilator Respiratory Rate 18 Setting Ventilator Respiratory Rate 18 Setting Ventilator Respiratory Rate 18 Setting Ventilator Respiratory Rate 18 Setting Ventilator Respiratory Rate 18 Setting Ventilator Respiratory Rate 18 Setting Ventilator Respiratory Rate 18 Setting Ventilator Respiratory Rate 18 Setting Ventilator Respiratory Rate 18 Setting Actual Respiratory Rate 25 Actual Respiratory Rate 18 Actual Respiratory Rate 18 Actual Respiratory Rate 22 Actual Respiratory Rate 18 Actual Respiratory Rate 18 Actual Respiratory Rate 21 Actual Respiratory Rate 18 Actual Respiratory Rate 21 Actual Respiratory Rate 21 Positive End Expiratory 5 Pressure Positive End Expiratory 5 Pressure Positive End Expiratory 5 Pressure Positive End Expiratory 5 Pressure Positive End Expiratory 5 Pressure Positive End Expiratory 5 Pressure Positive End Expiratory 5 Pressure Positive End Expiratory 5 Pressure Positive End Expiratory 5 Pressure Positive End Expiratory 5 Pressure Positive End Expiratory 5 Pressure Peak Inspiratory Airway 15 Pressure Peak Inspiratory Airway 25 Pressure Peak Inspiratory Airway 25 Pressure Peak Inspiratory Airway 27 Pressure Peak Inspiratory Airway 26 Pressure Peak Inspiratory Airway 26 Pressure Peak Inspiratory Airway 18 Pressure Peak Inspiratory Airway 25 Pressure Peak Inspiratory Airway 25 Pressure Peak Inspiratory Airway 26 Pressure Results - Laboratory Findings CBC and BMP: 03/20/17 03:35 03/20/17 03:35 ABG ABG pH 7.44 pH Units (7.32-7.45) 03/20/17 04:22 ABG pCO2 44 mmHg (35-45) 03/20/17 04:22 ABG pO2 95 mmHg (85-104) 03/20/17 04:22 ABG O2 Saturation 98 % (95-98) 03/20/17 04:22 PT/INR, D-dimer PT 12.5 Seconds (9.4-12.1) H 03/13/17 13:43 Abnormal lab findings: Abnormal lab results WBC 17.6 K/mcL (4.3-11.1) H 03/20/17 03:35 RBC 2.66 M/mcL (4.19-5.50) L 03/20/17 03:35 Hgb 8.1 g/dL (12.9-16.9) L 03/20/17 03:35 Hct 25.1 % (37.5-50.1) L 03/20/17 03:35 RDW 17.2 % (11.5-14.5) H 03/20/17 03:35 Neutrophils # 14.7 K/mcL (1.6-8.9) H 03/20/17 03:35 Monocytes # 1.6 K/mcL (0.0-1.3) H 03/20/17 03:35 Nucleated RBCs/100 WBC 0.2 /100 WBC (0) H 03/14/17 05:45 Platelet Estimate Slight increase (Normal) H 03/13/17 13:43 PT 12.5 Seconds (9.4-12.1) H 03/13/17 13:43 APTT 36.4 Seconds (26.0-36.0) H 03/13/17 13:43 ABG HCO3 29 mEq/L (21-27) H 03/20/17 04:22 ABG Total CO2 31 mEq/L (20-26) H 03/20/17 04:22 ABG Base Excess 5 mEq/L (-2 to 3) H 03/20/17 04:22 BUN 78 mg/dL (8-23) H 03/20/17 03:35 Creatinine 5.96 mg/dL (0.70-1.30) H 03/20/17 03:35 Est GFR ( Amer) 11 (> 60) L 03/20/17 03:35 Est GFR (Non-Af Amer) 9 (> 60) L 03/20/17 03:35 Glucose 180 mg/dL (70-105) H 03/20/17 03:35 POC Glucose 233 (58-89) H 03/19/17 23:42 Calculated Osmolality 326 (280-300) H 03/20/17 03:35 Iron 58 mcg/dL (65-175) L 03/18/17 11:18 Transferrin 125 mg/dL (203-362) L 03/18/17 11:18 Alkaline Phosphatase 331 Units/L (34-104) H 03/13/17 13:43 Troponin I 0.07 ng/mL (< 0.04) H* 03/16/17 21:10 B-Natriuretic Peptide 2742 pg/mL (Less than 100) H 03/13/17 22:40 Albumin 3.3 g/dL (3.5-5.7) L 03/13/17 13:43 Globulin 3.7 g/dL (2.4-3.5) H 03/13/17 13:43 Albumin/Globulin Ratio 0.9 (1.1-2.2) L 03/13/17 13:43 25-OH Vitamin D Total 24 ng/mL (30-80) L 03/18/17 11:18 Folate 43.0 ng/mL (3.0-16.0) H 03/18/17 11:18 PTH Intact 395.7 pg/ml (10.0-65.0) H 03/18/17 11:18 Digoxin 0.5 ng/mL (0.8-2.0) L 03/13/17 13:43 Phenytoin 4.3 mcg/mL (10.0-20.0) L 03/15/17 04:12 Free Phenytoin 0.8 ug/mL (1.0-2.5) L 03/15/17 04:12 Total Phenytoin 5.2 ug/mL (10.0-20.0) L 03/15/17 04:12 Percent Free Phenytoin 15.4 % (8.0-14.0) H 03/15/17 04:12 Valproic Acid 14 mcg/mL (50-100) L 03/13/17 13:43 - Microbiology Findings Microbiology Findings: Microbiology, Last 48 Hours 03/18/17 13:20 Blood Culture - Preliminary Peripheral Venipuncture No growth. 03/18/17 13:20 Blood Culture - Preliminary Peripheral Venipuncture No growth. 03/15/17 10:02 Sputum Culture - Final Sputum P. aeruginosa MDRO - Clinical Findings Intake & Output: Intake & Output 03/19/17 03/19/17 03/20/17 15:59 23:59 07:59 Intake Total 1198.5 / 1198.5 675.5 / 675.5 626 / 626 Output Total 2716 / 2716 0 / 0 5 / 5 Balance -1517.5 / -1517.5 675.5 / 675.5 621 / 621 Weight 79.2 kg Consult Discharge Plan - Plan Referrals: NONE,PCP [Primary Care Provider] - <Amador Patel W - Last Filed: 03/20/17 11:22> Date of Encounter: 03/20/17 Assessment and Plan (1) Acute respiratory failure Current Visit: No Status: Acute Qualifiers: Respiratory failure complication: hypoxia Qualified Code(s): J96.01 - Acute respiratory failure with hypoxia (2) ESRD (end stage renal disease) on dialysis Current Visit: No Status: Chronic (3) Altered mental state Current Visit: Yes Status: Acute Qualifiers: Altered mental status type: coma Coma depth: Bartlett coma 3-8 Coma timing : in the field (EMT or ambulance) Qualified Code(s): R40.2431 - Kal coma scale score 3-8, in the field [EMT or ambulance] (4) Ischemic stroke of frontal lobe Current Visit: No Status: Acute (5) Pneumonia Current Visit: Yes Status: Acute Qualifiers: Pneumonia type: due to Pseudomonas Laterality: bilateral Lung location: unspecified part of lung Qualified Code(s): J15.1 - Pneumonia due to Pseudomonas (6) History of seizure disorder Current Visit: Yes Status: Acute (7) Hypertension Current Visit: Yes Status: Acute Qualifiers: Hypertension type: unspecified Qualified Code(s): I10 - Essential (primary ) hypertension (8) DVT prophylaxis Current Visit: Yes Status: Acute Objective PUL Vital signs: Last Vital Signs Temp 99.1 F 03/20/17 07:00 Pulse 98 03/20/17 11:00 Resp 21 03/20/17 11:11 BP 141/68 03/20/17 11:11 Pulse Ox 100 03/20/17 11:11 Ventilator Settings Ventilator Settings: Ventilator Settings, Last 8 Hours Ventilator Mode A/C Ventilator Mode A/C Ventilator Mode A/C Ventilator Mode A/C Ventilator Mode A/C Ventilator Mode A/C Ventilator Mode CPAP Ventilator Mode CPAP Ventilator Mode CPAP Ventilator Mode A/C Ventilator Mode A/C Ventilator Mode A/C Ventilator Mode A/C Ventilator Mode A/C Ventilator Tidal Volume 500 Setting Ventilator Tidal Volume 500 Setting Ventilator Tidal Volume 500 Setting Ventilator Tidal Volume 500 Setting Ventilator Tidal Volume 500 Setting Ventilator Tidal Volume 500 Setting Ventilator Tidal Volume 500 Setting Ventilator Tidal Volume 500 Setting Ventilator Tidal Volume 500 Setting Ventilator Tidal Volume 500 Setting Ventilator Tidal Volume 500 Setting Ventilator Respiratory Rate 18 Setting Ventilator Respiratory Rate 18 Setting Ventilator Respiratory Rate 18 Setting Ventilator Respiratory Rate 18 Setting Ventilator Respiratory Rate 18 Setting Ventilator Respiratory Rate 18 Setting Ventilator Respiratory Rate 18 Setting Ventilator Respiratory Rate 18 Setting Ventilator Respiratory Rate 18 Setting Ventilator Respiratory Rate 18 Setting Ventilator Respiratory Rate 18 Setting Actual Respiratory Rate 22 Actual Respiratory Rate 20 Actual Respiratory Rate 18 Actual Respiratory Rate 20 Actual Respiratory Rate 18 Actual Respiratory Rate 18 Actual Respiratory Rate 25 Actual Respiratory Rate 18 Actual Respiratory Rate 18 Actual Respiratory Rate 22 Actual Respiratory Rate 18 Positive End Expiratory 5 Pressure Positive End Expiratory 5 Pressure Positive End Expiratory 5 Pressure Positive End Expiratory 5 Pressure Positive End Expiratory 5 Pressure Positive End Expiratory 5 Pressure Positive End Expiratory 5 Pressure Positive End Expiratory 5 Pressure Positive End Expiratory 5 Pressure Positive End Expiratory 5 Pressure Positive End Expiratory 5 Pressure Positive End Expiratory 5 Pressure Peak Inspiratory Airway 32 Pressure Peak Inspiratory Airway 17 Pressure Peak Inspiratory Airway 24 Pressure Peak Inspiratory Airway 24 Pressure Peak Inspiratory Airway 25 Pressure Peak Inspiratory Airway 28 Pressure Peak Inspiratory Airway 15 Pressure Peak Inspiratory Airway 25 Pressure Peak Inspiratory Airway 25 Pressure Peak Inspiratory Airway 27 Pressure Peak Inspiratory Airway 26 Pressure Results - Laboratory Findings CBC and BMP: 03/20/17 03:35 03/20/17 03:35 ABG ABG pH 7.44 pH Units (7.32-7.45) 03/20/17 04:22 ABG pCO2 44 mmHg (35-45) 03/20/17 04:22 ABG pO2 95 mmHg (85-104) 03/20/17 04:22 ABG O2 Saturation 98 % (95-98) 03/20/17 04:22 PT/INR, D-dimer PT 12.5 Seconds (9.4-12.1) H 03/13/17 13:43 Abnormal lab findings: Abnormal lab results WBC 17.6 K/mcL (4.3-11.1) H 03/20/17 03:35 RBC 2.66 M/mcL (4.19-5.50) L 03/20/17 03:35 Hgb 8.1 g/dL (12.9-16.9) L 03/20/17 03:35 Hct 25.1 % (37.5-50.1) L 03/20/17 03:35 RDW 17.2 % (11.5-14.5) H 03/20/17 03:35 Neutrophils # 14.7 K/mcL (1.6-8.9) H 03/20/17 03:35 Monocytes # 1.6 K/mcL (0.0-1.3) H 03/20/17 03:35 Nucleated RBCs/100 WBC 0.2 /100 WBC (0) H 03/14/17 05:45 Platelet Estimate Slight increase (Normal) H 03/13/17 13:43 PT 12.5 Seconds (9.4-12.1) H 03/13/17 13:43 APTT 36.4 Seconds (26.0-36.0) H 03/13/17 13:43 ABG HCO3 29 mEq/L (21-27) H 03/20/17 04:22 ABG Total CO2 31 mEq/L (20-26) H 03/20/17 04:22 ABG Base Excess 5 mEq/L (-2 to 3) H 03/20/17 04:22 BUN 78 mg/dL (8-23) H 03/20/17 03:35 Creatinine 5.96 mg/dL (0.70-1.30) H 03/20/17 03:35 Est GFR ( Amer) 11 (> 60) L 03/20/17 03:35 Est GFR (Non-Af Amer) 9 (> 60) L 03/20/17 03:35 Glucose 180 mg/dL (70-105) H 03/20/17 03:35 POC Glucose 233 (58-89) H 03/19/17 23:42 Calculated Osmolality 326 (280-300) H 03/20/17 03:35 Iron 58 mcg/dL (65-175) L 03/18/17 11:18 Transferrin 125 mg/dL (203-362) L 03/18/17 11:18 Alkaline Phosphatase 331 Units/L (34-104) H 03/13/17 13:43 Troponin I 0.07 ng/mL (< 0.04) H* 03/16/17 21:10 B-Natriuretic Peptide 2742 pg/mL (Less than 100) H 03/13/17 22:40 Albumin 3.3 g/dL (3.5-5.7) L 03/13/17 13:43 Globulin 3.7 g/dL (2.4-3.5) H 03/13/17 13:43 Albumin/Globulin Ratio 0.9 (1.1-2.2) L 03/13/17 13:43 25-OH Vitamin D Total 24 ng/mL (30-80) L 03/18/17 11:18 Folate 43.0 ng/mL (3.0-16.0) H 03/18/17 11:18 PTH Intact 395.7 pg/ml (10.0-65.0) H 03/18/17 11:18 Digoxin 0.5 ng/mL (0.8-2.0) L 03/13/17 13:43 Phenytoin 4.3 mcg/mL (10.0-20.0) L 03/15/17 04:12 Free Phenytoin 0.8 ug/mL (1.0-2.5) L 03/15/17 04:12 Total Phenytoin 5.2 ug/mL (10.0-20.0) L 03/15/17 04:12 Percent Free Phenytoin 15.4 % (8.0-14.0) H 03/15/17 04:12 Valproic Acid 14 mcg/mL (50-100) L 03/13/17 13:43 - Microbiology Findings Microbiology Findings: Microbiology, Last 48 Hours 03/18/17 13:20 Blood Culture - Preliminary Peripheral Venipuncture No growth. 03/18/17 13:20 Blood Culture - Preliminary Peripheral Venipuncture No growth. 03/15/17 10:02 Sputum Culture - Final Sputum P. aeruginosa MDRO - Clinical Findings Intake & Output: Intake & Output 03/19/17 03/20/17 03/20/17 23:59 07:59 15:59 Intake Total 675.5 / 675.5 626 / 626 102.5 / 102.5 Output Total 0 / 0 5 / 5 Balance 675.5 / 675.5 621 / 621 102.5 / 102.5 Weight 79.2 kg - Attending Attestation I examined this patient and my medical decision-making was reviewed with the Resident Physician. I agree with the documented findings, disposition and treatment plan as described except to the extent set forth below. We independently had [id number] contact with the patient Patient seen and examined at bedside Labs, radiology, chart personally reviewed. Management was reviewed during multidisciplinary critical care rounds. Impression/Recs Acute on chronic hypoxic hypercarbic respiratory failure trach dependent stable on vent tolerated 2 hours CPAP trial today Pseudomonas pneumonia with persistent leukocytosis adding tobramycin ESRD on scheduled [employer] Status post ICH with permanent neurological disability appears to be at baseline Anticipate DC to penitentiary facility within 24 hours
[2017-03-20] MEDS: Miconazole w/zinc oxide&karaya 92 APPL/92 GM TUBE TP SCH ×2 (07:54→21:46)
[2017-03-20] MEDS: Chlorhexidine Rinse 15 ML MOUTHWASH MM SCH ×2 (07:59→21:43)
[2017-03-20] MEDS: *HR* Amiodarone 200 MG TABLET PO SCH (07:59)
[2017-03-20] MEDS: Pantoprazole 40 MG VIAL IVP SCH (07:59)
[2017-03-20] MEDS: Insulin DETEMIR 100 UNIT/ML X5UNITS SQ SCH (08:11)
[2017-03-20] MEDS: Valproic Acid INJ 250 MG in 0.9 % Sodium Chloride 100 ML IVPB SCH ×2 (08:11→21:44)
[2017-03-20] MEDS ORDERED: 0.9 % Sodium Chloride 250 ML IVC PRN (08:29)
[2017-03-20] MEDS ORDERED: 0.9 % Sodium Chloride 1,000 ML PRIME SCH (08:30)
[2017-03-20] MEDS ORDERED: D5 IVPB SCH (11:00)
[2017-03-20] MEDS ORDERED: TOBRAMYCIN SULF IVPB SCH (11:00)
[2017-03-20] MEDS ORDERED: WATER IVPB SCH (11:00)
[2017-03-20] MEDS: *HR* FentaNYL (PF) 100 MCG/2 ML VIAL IVP PRN ×2 (15:45→21:44)
[2017-03-20] MEDS ORDERED: TOBRAMYCIN SULF IVPB ONE (17:00)
[2017-03-20] MEDS ORDERED: WATER IVPB ONE (17:00)
[2017-03-20] MEDS ORDERED: D5 IVPB ONE (17:00)
[2017-03-20] MEDS: Cefepime HCl 1,000 MG in Water for inj. (sterile) 10 ML IVP SCH (17:00)
[2017-03-21] MEDS: Insulin LISPRO 300 UNITS/3 ML VIAL SQ SCH ×6 (00:51→21:11)
[2017-03-21] MEDS: Ipratropium/Albuterol Neb 3 ML IH SCH ×7 (01:14→23:25)
[2017-03-21 03:55] LABS: Basophils % 0.3 %; Eosinophils % 0.6 %; Immature Granulocytes % 0.6 % (0-4)
[2017-03-21 03:56] LABS: Basophils # 0.1 K/mcL (0.0-0.2); Eosinophils # 0.2 K/mcL (0.0-0.6); Hematocrit 26.5 % (37.5-50.1); Hemoglobin 8.4 g/dL (12.9-16.9); Lymphocytes % 3.9 %; Mean Corpuscular HGB Conc 31.7 g/dL (31.6-35.5); Mean Corpuscular Hemoglobin 30.7 pg (28.0-33.3); Mean Corpuscular Volume 96.7 fL (83.0-100.0); Mean Platelet Volume 11.6 fL (9.4-12.4); Monocytes # 2.5 K/mcL (0.0-1.3); Monocytes % 9.3 %; Neutrophils # 22.5 K/mcL (1.6-8.9); Nucleated Red Blood Cells 0.1 /100 WBC (0); Platelet Count 369 K/mcL (140-400); Red Blood Count 2.74 M/mcL (4.19-5.50); Red Cell Distribution Width 17.2 % (11.5-14.5); Segmented Neutrophils % 85.3 %
[2017-03-21 04:11] LABS: Calcium 10.2 mg/dL (8.6-10.3); Magnesium 2.3 mg/dL (1.6-2.6); Potassium 4.3 mEq/L (3.5-5.1)
[2017-03-21 04:22] LABS: Anisocytosis 1+ (Not Present); Large Platelets Present (Not Present); Macrocytosis Present (Not Present); Platelet Estimate Normal (Normal); Polychromasia 1+ (Not Present)
[2017-03-21] MEDS: Dexmedetomidine HCl 400 MCG/100 ML MLS IVC SCH ×4 (06:07→23:59)
[2017-03-21] MEDS: *HR* Heparin 5,000 UNIT/ML VIAL SQ SCH ×3 (06:07→21:03)
--- NOTE | 2017-03-21 07:06 | Nephrology Progress Note ---
Date of Encounter: 03/21/17 Time of Encounter: 07:04 - Assessment and Plan (1) ESRD (end stage renal disease) on dialysis Current Visit: No Status: Chronic Patient is a previous [facility] dialysis patient who went to [facility] for his treatments prior to being transferred to [facility] a number of months ago. 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 if possible fly worker notes reviewed, anticipate transfer to [facility] on 03/25, as his dialysis chair will become available on 03/26/17 (2) Anemia Current Visit: Yes Status: Acute Goal hgb 10-11 Transfuse per parameters Anemia workup: Iron 58, iron % sat 33, Folate 43, Vit B12 level 563 Continue to monitor Qualifiers: Anemia type: due to chronic kidney disease Chronic kidney disease stage: on chronic dialysis Qualified Code(s): N18.6 - End stage renal disease; D63.1 - Anemia in chronic kidney disease; D63.1 - Anemia in chronic kidney disease; Z99.2 - Dependence on renal dialysis; Z99.2 - Dependence on renal dialysis; Z99.2 - Dependence on renal dialysis; Z99.2 - Dependence on renal dialysis (3) Pneumonia Current Visit: Yes Status: Acute Management per critical care team Avoid nephrotoxins Qualifiers: Pneumonia type: due to Pseudomonas Laterality: bilateral Lung location: unspecified part of lung Qualified Code(s): J15.1 - Pneumonia due to Pseudomonas (4) Acute and chronic respiratory failure Current Visit: Yes Status: Acute Patient with a trach. Patient is vent dependent. Management per critical care team. Qualifiers: Respiratory failure complication: hypoxia Qualified Code(s): J96.21 - Acute and chronic respiratory failure with hypoxia (5) Cardiac arrest Current Visit: Yes Status: Acute Management per critical care team/ cardiology (6) Hypertension Current Visit: Yes Status: Acute Will continue to monitor Titrate antihypertensive medications as needed Qualifiers: Hypertension type: unspecified Qualified Code(s): I10 - Essential (primary ) hypertension (7) Diabetes mellitus Current Visit: No Status: Chronic Management per primary team 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 mellitus shelter insulin use: with buttermaker helper use Chronic kidney disease stage: on chronic dialysis Qualified Code(s): E11.22 - Type 2 diabetes mellitus with diabetic chronic kidney disease; N18.6 - End stage renal disease; N18.6 - End stage renal disease; N18.6 - End stage renal disease; N18.6 - End stage renal disease; Z79.4 - FPC (current) use of insulin; Z79.4 - FPC (current) use of insulin; Z79.4 - emt intermediate (current ) use of insulin; Z79.4 - emt intermediate (current) use of insulin; Z99.2 - Dependence on renal dialysis; Z99.2 - Dependence on renal dialysis; Z99.2 - Dependence on renal dialysis; Z99.2 - Dependence on renal dialysis (8) Vitamin D deficiency Current Visit: Yes Status: Acute Vit D level 24 Supplement Vit D Subjective Principal diagnosis: PEA Arrest Interval history: Patient seen and examined. He remains on ventilator, off sedation, and is able to nod his head to answer questions. Patient had 5cc UOP in urostomy and 2600cc during dialysis yesterday. Anticipate HD tomorrow. fly worker notes reviewed , anticipate transfer to [facility] on 03/25/17, as his dialysis chair will become available on 03/26/17 Objective - Vital Signs Vital signs: Vital Signs Temp Pulse Resp BP Pulse Ox 03/21/17 06:04 21 109/45 100 03/21/17 06:00 102 24 109/45 99 03/21/17 05:00 101 21 109/47 100 03/21/17 04:06 18 95/45 99 03/21/17 04:00 101 18 95/45 99 03/21/17 03:00 100.2 F H 101 20 90/42 100 03/21/17 02:00 107 20 114/57 100 03/21/17 01:14 18 106/27 100 03/21/17 01:00 101 20 106/27 100 03/21/17 00:00 105 21 155/65 100 03/20/17 23:00 101.2 F H 112 25 140/70 100 03/20/17 22:00 128 25 126/65 100 03/20/17 21:29 26 108/68 100 03/20/17 21:00 130 29 108/68 93 03/20/17 20:00 124 22 136/72 99 03/20/17 19:36 20 145/65 98 03/20/17 19:00 102 F H 112 28 117/50 100 03/20/17 18:00 110 18 126/75 100 03/20/17 17:11 26 105/70 97 03/20/17 17:00 118 105/70 03/20/17 16:00 118 28 138/72 100 03/20/17 15:44 25 70/62 100 03/20/17 15:20 99.5 F 20 119/64 03/20/17 15:10 109/50 03/20/17 15:00 114 30 91/58 100 03/20/17 14:55 103/72 03/20/17 14:40 109/67 03/20/17 14:25 111/75 03/20/17 14:10 116/71 03/20/17 14:00 113 24 108/63 100 03/20/17 13:55 28 92/69 100 03/20/17 13:40 117/59 03/20/17 13:25 108/59 03/20/17 13:10 112/69 03/20/17 13:00 111 25 109/72 100 03/20/17 12:55 117/62 03/20/17 12:40 132/63 03/20/17 12:25 134/56 03/20/17 12:10 99.1 F 20 136/64 03/20/17 12:04 99.1 F 03/20/17 11:11 21 141/68 100 03/20/17 11:00 94 20 100 03/20/17 10:00 93 18 121/62 100 03/20/17 09:48 18 117/59 100 03/20/17 09:00 90 18 103/54 99 03/20/17 08:00 103 18 140/72 100 03/20/17 07:38 100 03/20/17 07:32 26 137/72 100 Intake and Output 03/20/17 03/20/17 03/21/17 15:59 23:59 07:59 Intake Total 1140.5 / 1140.5 537 / 537 174 / 174 Output Total 2600 / 2600 0 / 0 0 / 0 Balance -1459.5 / -1459.5 537 / 537 174 / 174 Intake: IV Fluids 102.5 / 102.5 65 / 65 95 / 95 PRECEDEX Premix 400 mcg In 100 55 / 55 95 / 95 ml @ 0.2 MCG/KG/HR 4.468 mls/hr IVC .[id number] [facility] Rx#: [id number] Maxipime 1,000 MG In Water for 10 / 10 inj. (sterile) 10 ML @ 150 mls/ hr IVP Q24H [facility] Rx#:[id number] Depacon 250 MG In 0.9 % Sodium 102.5 / 102.5 Chloride 100 ML @ 100 mls/hr IVPB BID [facility] Rx#:[id number] Oral 0 / 0 Tube Feeding 438 / 438 472 / 472 79 / 79 Intake, Rinseback and Flushes 600 / 600 Output: Urine 0 / 0 Total Dialysis (HD) Output 2600 / 2600 Urostomy 0 / 0 0 / 0 Other: Blood Glucose* 233 265 199 Hemodialysis Net Fluid Removed 2000 (mL) - General Appearance General appearance: Present: well-developed, well-nourished, chronically ill EENT: Present: ATNC, mucous membranes dry Neck: Present: supple (trach in place) Respiratory: Present: clear Cardiology: Present: no murmurs, no rub, no gallops, no edema, regular rate, regular rhythm Gastrointestinal: Present: normoactive bowel sounds, no tenderness, no guarding (urostomy in place) Integumentary: Present: no rash, ulcer (Stage 3 pressure ulcer of left hip) Neurologic: Present: aphasic (awake, nods head to answer questions, residual left sided deficits unchanged) Musculoskeletal: Present: no deformities, no cyanosis, decreased ROM (left sided deficits unchanged) Psychiatric: Present: cooperative (awake, on ventilator, nods head to questions) - Lab 03/21/17 03:45 03/21/17 03:45 Most recent lab results ABG pH 7.44 pH Units (7.32-7.45) 03/20/17 04:22 ABG pCO2 44 mmHg (35-45) 03/20/17 04:22 ABG pO2 95 mmHg (85-104) 03/20/17 04:22 ABG HCO3 29 mEq/L (21-27) H 03/20/17 04:22 ABG O2 Saturation 98 % (95-98) 03/20/17 04:22 Calcium 10.2 mg/dL (8.6-10.3) 03/21/17 03:45 Phosphorus 4.1 mg/dL (2.7-4.5) 03/13/17 15:34 Magnesium 2.3 mg/dL (1.6-2.6) 03/21/17 03:45 Consult Discharge Plan - Plan Referrals: NONE,PCP [Primary Care Provider] -
[2017-03-21] MEDS ORDERED: 0.9 % Sodium Chloride 250 ML IVC PRN (08:47)
[2017-03-21] MEDS ORDERED: Insulin DETEMIR 100 UNIT/ML X5UNITS SQ SCH (09:00)
[2017-03-21] MEDS ORDERED: 0.9 % Sodium Chloride 1,000 ML PRIME SCH (09:00)
--- NOTE | 2017-03-21 09:01 | Pulmonology Progress Note ---
<Mitchell Worthy - Last Filed: 03/21/17 10:31> Date of Encounter: 03/21/17 Time of Encounter: 08:59 Assessment and Plan (1) Acute and chronic respiratory failure Current Visit: Yes Status: Acute Patient is on a ventilator chronically. There were numerous attempts to try to wean patient from the ventilator but there has been no success. Prior to arrival to [facility] emergency department the patient was a roughly on 100% FiO2 with a PEEP of 10. He has a history of several bouts of pneumonia within the past year The patient is down to FiO2 40%. He is doing well with this. Bilateral infiltrates on CXR: likely combination of infectious and cardiogenic edema. The patient does have a left ventricular EF of 45%. The patient has done well on the ventilator as he is ventilator dependent at baseline. We will continue to monitor patient's respiratory status. In addition we will continue to attempt to pull off fluid. Neurology, cardiology, nephrology are all consulted and participating in care at this time. Sputum cultures shows Pseudomonas Leukocytosis worsening, Fever of 102 last night - Tobramycin dose after dialysis yesterday Repeat cultures today Concern about C. diff - Stool PCR pending Will switch antibiotics to Vancomycin, Meropenem, and Tobramycin Qualifiers: Respiratory failure complication: hypoxia Qualified Code(s): J96.21 - Acute and chronic respiratory failure with hypoxia (2) ESRD (end stage renal disease) on dialysis Current Visit: No Status: Chronic Dialysis per nephrology (3) Pneumonia Current Visit: Yes Status: Acute Likely healthcare associated pneumonia - sputum culture shows Pseudomonas Blood cultures 03/13 negative Repeat cultures drawn on 03/18 - preliminary negative Temp and WBC elevated again Repeat cultures on 03/20 Antibiotics changed to Meropenem, Tobramycin, and Vancomycin Qualifiers: Pneumonia type: due to Pseudomonas Laterality: bilateral Lung location: unspecified part of lung Qualified Code(s): J15.1 - Pneumonia due to Pseudomonas (4) Altered mental state Current Visit: Yes Status: Acute Intermittently follows commands. No new focal deficits. Qualifiers: Altered mental status type: coma Coma depth: [place] coma 3-8 Coma timing : in the field (EMT or ambulance) Qualified Code(s): R40.2431 - [place] coma scale score 3-8, in the field [EMT or ambulance] (5) Hypertension Current Visit: Yes Status: Acute Continue Lopressor Qualifiers: Hypertension type: unspecified Qualified Code(s): I10 - Essential (primary ) hypertension (6) Insulin dependent diabetes mellitus Current Visit: No Status: Chronic Increased to high dose SSI and Levemir increased to 25U BG 160-200's now (7) History of seizure disorder Current Visit: Yes Status: Acute On valproic acid and phenytoin (8) Ischemic stroke of frontal lobe Current Visit: No Status: Acute (9) DVT prophylaxis Current Visit: Yes Status: Acute Subq heparin Subjective Principal diagnosis: PEA Arrest Interval history: Pt had a fever of 102 last night. Mental status remains about the same, he is able to respond to commands and shake his head yes/no. He remains hemodynamically stable. Objective PUL Vital signs: Last Vital Signs Temp 99.0 F 03/21/17 07:30 Pulse 105 03/21/17 07:30 Resp 21 03/21/17 07:40 BP 93/46 03/21/17 07:40 Pulse Ox 98 03/21/17 07:40 General appearance: no acute distress Eyes: nonicteric Effort: normal Auscultation: bilateral: rhonchi Cardiovascular: regular rate and rhythm Gastrointestinal: normoactive bowel sounds Extremities: no cyanosis, no edema Ventilator Settings Ventilator Settings: Ventilator Settings, Last 8 Hours Ventilator Mode A/C Ventilator Mode A/C Ventilator Mode A/C Ventilator Mode A/C Ventilator Mode A/C Ventilator Mode A/C Ventilator Mode A/C Ventilator Mode A/C Ventilator Mode A/C Ventilator Mode A/C Ventilator Mode A/C Ventilator Tidal Volume 500 Setting Ventilator Tidal Volume 500 Setting Ventilator Tidal Volume 500 Setting Ventilator Tidal Volume 500 Setting Ventilator Tidal Volume 500 Setting Ventilator Tidal Volume 500 Setting Ventilator Tidal Volume 500 Setting Ventilator Tidal Volume 500 Setting Ventilator Tidal Volume 500 Setting Ventilator Tidal Volume 500 Setting Ventilator Tidal Volume 500 Setting Ventilator Respiratory Rate 18 Setting Ventilator Respiratory Rate 18 Setting Ventilator Respiratory Rate 18 Setting Ventilator Respiratory Rate 18 Setting Ventilator Respiratory Rate 18 Setting Ventilator Respiratory Rate 18 Setting Ventilator Respiratory Rate 18 Setting Ventilator Respiratory Rate 18 Setting Ventilator Respiratory Rate 18 Setting Ventilator Respiratory Rate 18 Setting Ventilator Respiratory Rate 18 Setting Actual Respiratory Rate 19 Actual Respiratory Rate 18 Actual Respiratory Rate 19 Actual Respiratory Rate 21 Actual Respiratory Rate 19 Actual Respiratory Rate 18 Actual Respiratory Rate 18 Actual Respiratory Rate 18 Actual Respiratory Rate 18 Actual Respiratory Rate 18 Actual Respiratory Rate 18 Positive End Expiratory 5 Pressure Positive End Expiratory 5 Pressure Positive End Expiratory 5 Pressure Positive End Expiratory 5 Pressure Positive End Expiratory 5 Pressure Positive End Expiratory 5 Pressure Positive End Expiratory 5 Pressure Positive End Expiratory 5 Pressure Positive End Expiratory 5 Pressure Positive End Expiratory 5 Pressure Positive End Expiratory 5 Pressure Peak Inspiratory Airway 28 Pressure Peak Inspiratory Airway 27 Pressure Peak Inspiratory Airway 24 Pressure Peak Inspiratory Airway 25 Pressure Peak Inspiratory Airway 24 Pressure Peak Inspiratory Airway 27 Pressure Peak Inspiratory Airway 24 Pressure Peak Inspiratory Airway 20 Pressure Peak Inspiratory Airway 20 Pressure Peak Inspiratory Airway 24 Pressure Peak Inspiratory Airway 20 Pressure Results - Laboratory Findings CBC and BMP: 03/21/17 03:45 03/21/17 03:45 ABG ABG pH 7.44 pH Units (7.32-7.45) 03/20/17 04:22 ABG pCO2 44 mmHg (35-45) 03/20/17 04:22 ABG pO2 95 mmHg (85-104) 03/20/17 04:22 ABG O2 Saturation 98 % (95-98) 03/20/17 04:22 PT/INR, D-dimer PT 12.5 Seconds (9.4-12.1) H 03/13/17 13:43 Abnormal lab findings: Abnormal lab results WBC 26.4 K/mcL (4.3-11.1) H 03/21/17 03:45 RBC 2.74 M/mcL (4.19-5.50) L 03/21/17 03:45 Hgb 8.4 g/dL (12.9-16.9) L 03/21/17 03:45 Hct 26.5 % (37.5-50.1) L 03/21/17 03:45 RDW 17.2 % (11.5-14.5) H 03/21/17 03:45 Neutrophils # 22.5 K/mcL (1.6-8.9) H 03/21/17 03:45 Monocytes # 2.5 K/mcL (0.0-1.3) H 03/21/17 03:45 Nucleated RBCs/100 WBC 0.1 /100 WBC (0) H 03/21/17 03:45 Large Platelets Present (Not Present) A 03/21/17 03:45 Polychromasia 1+ (Not Present) A 03/21/17 03:45 Anisocytosis 1+ (Not Present) A 03/21/17 03:45 Macrocytosis Present (Not Present) A 03/21/17 03:45 PT 12.5 Seconds (9.4-12.1) H 03/13/17 13:43 APTT 36.4 Seconds (26.0-36.0) H 03/13/17 13:43 ABG HCO3 29 mEq/L (21-27) H 03/20/17 04:22 ABG Total CO2 31 mEq/L (20-26) H 03/20/17 04:22 ABG Base Excess 5 mEq/L (-2 to 3) H 03/20/17 04:22 BUN 75 mg/dL (8-23) H 03/21/17 03:45 Creatinine 5.67 mg/dL (0.70-1.30) H 03/21/17 03:45 Est GFR ( Amer) 12 (> 60) L 03/21/17 03:45 Est GFR (Non-Af Amer) 10 (> 60) L 03/21/17 03:45 Glucose 210 mg/dL (70-105) H 03/21/17 03:45 POC Glucose 265 (58-89) H 03/21/17 00:35 Calculated Osmolality 318 (280-300) H 03/21/17 03:45 Iron 58 mcg/dL (65-175) L 03/18/17 11:18 Transferrin 125 mg/dL (203-362) L 03/18/17 11:18 Alkaline Phosphatase 331 Units/L (34-104) H 03/13/17 13:43 Troponin I 0.07 ng/mL (< 0.04) H* 03/16/17 21:10 B-Natriuretic Peptide 2742 pg/mL (Less than 100) H 03/13/17 22:40 Albumin 3.3 g/dL (3.5-5.7) L 03/13/17 13:43 Globulin 3.7 g/dL (2.4-3.5) H 03/13/17 13:43 Albumin/Globulin Ratio 0.9 (1.1-2.2) L 03/13/17 13:43 25-OH Vitamin D Total 24 ng/mL (30-80) L 03/18/17 11:18 Folate 43.0 ng/mL (3.0-16.0) H 03/18/17 11:18 PTH Intact 395.7 pg/ml (10.0-65.0) H 03/18/17 11:18 Digoxin 0.5 ng/mL (0.8-2.0) L 03/13/17 13:43 Phenytoin 4.3 mcg/mL (10.0-20.0) L 03/15/17 04:12 Free Phenytoin 0.8 ug/mL (1.0-2.5) L 03/15/17 04:12 Total Phenytoin 5.2 ug/mL (10.0-20.0) L 03/15/17 04:12 Percent Free Phenytoin 15.4 % (8.0-14.0) H 03/15/17 04:12 Valproic Acid 14 mcg/mL (50-100) L 03/13/17 13:43 - Microbiology Findings Microbiology Findings: Microbiology, Last 48 Hours 03/18/17 13:20 Blood Culture - Preliminary Peripheral Venipuncture No growth. 03/18/17 13:20 Blood Culture - Preliminary Peripheral Venipuncture No growth. - Clinical Findings Intake & Output: Intake & Output 03/20/17 03/21/17 03/21/17 23:59 07:59 15:59 Intake Total 537 / 537 174 / 174 Output Total 0 / 0 0 / 0 Balance 537 / 537 174 / 174 Consult Discharge Plan - Plan Referrals: NONE,PCP [Primary Care Provider] - <Amador Patel - Last Filed: 03/21/17 16:53> Date of Encounter: 03/21/17 Assessment and Plan (1) Acute respiratory failure Current Visit: No Status: Acute Qualifiers: Respiratory failure complication: hypoxia Qualified Code(s): J96.01 - Acute respiratory failure with hypoxia (2) ESRD (end stage renal disease) on dialysis Current Visit: No Status: Chronic (3) Altered mental state Current Visit: Yes Status: Acute Qualifiers: Altered mental status type: coma Coma depth: [place] coma 3-8 Coma timing : in the field (EMT or ambulance) Qualified Code(s): R40.2431 - [place] coma scale score 3-8, in the field [EMT or ambulance] (4) Ischemic stroke of frontal lobe Current Visit: No Status: Acute (5) Pneumonia Current Visit: Yes Status: Acute Qualifiers: Pneumonia type: due to Pseudomonas Laterality: bilateral Lung location: unspecified part of lung Qualified Code(s): J15.1 - Pneumonia due to Pseudomonas (6) History of seizure disorder Current Visit: Yes Status: Acute (7) Hypertension Current Visit: Yes Status: Acute Qualifiers: Hypertension type: unspecified Qualified Code(s): I10 - Essential (primary ) hypertension (8) DVT prophylaxis Current Visit: Yes Status: Acute Objective PUL Vital signs: Last Vital Signs Temp 97.8 F 03/21/17 12:17 Pulse 104 03/21/17 11:30 Resp 22 03/21/17 11:42 BP 89/63 03/21/17 11:30 Pulse Ox 98 03/21/17 11:42 Ventilator Settings Ventilator Settings: Ventilator Settings, Last 8 Hours Ventilator Mode A/C Ventilator Mode A/C Ventilator Mode A/C Ventilator Mode A/C Ventilator Mode A/C Ventilator Mode A/C Ventilator Mode A/C Ventilator Mode A/C Ventilator Mode A/C Ventilator Tidal Volume 500 Setting Ventilator Tidal Volume 500 Setting Ventilator Tidal Volume 500 Setting Ventilator Tidal Volume 500 Setting Ventilator Tidal Volume 500 Setting Ventilator Tidal Volume 500 Setting Ventilator Tidal Volume 500 Setting Ventilator Tidal Volume 500 Setting Ventilator Tidal Volume 500 Setting Ventilator Tidal Volume 500 Setting Ventilator Tidal Volume 500 Setting Ventilator Respiratory Rate 18 Setting Ventilator Respiratory Rate 18 Setting Ventilator Respiratory Rate 18 Setting Ventilator Respiratory Rate 18 Setting Ventilator Respiratory Rate 18 Setting Ventilator Respiratory Rate 18 Setting Ventilator Respiratory Rate 18 Setting Ventilator Respiratory Rate 18 Setting Ventilator Respiratory Rate 18 Setting Ventilator Respiratory Rate 18 Setting Ventilator Respiratory Rate 18 Setting Actual Respiratory Rate 18 Actual Respiratory Rate 18 Actual Respiratory Rate 18 Actual Respiratory Rate 18 Actual Respiratory Rate 20 Actual Respiratory Rate 18 Actual Respiratory Rate 19 Actual Respiratory Rate 18 Actual Respiratory Rate 19 Actual Respiratory Rate 21 Actual Respiratory Rate 19 Positive End Expiratory 5 Pressure Positive End Expiratory 5 Pressure Positive End Expiratory 5 Pressure Positive End Expiratory 5 Pressure Positive End Expiratory 5 Pressure Positive End Expiratory 5 Pressure Positive End Expiratory 5 Pressure Positive End Expiratory 5 Pressure Positive End Expiratory 5 Pressure Positive End Expiratory 5 Pressure Positive End Expiratory 5 Pressure Peak Inspiratory Airway 28 Pressure Peak Inspiratory Airway 31 Pressure Peak Inspiratory Airway 28 Pressure Peak Inspiratory Airway 28 Pressure Peak Inspiratory Airway 27 Pressure Peak Inspiratory Airway 26 Pressure Peak Inspiratory Airway 28 Pressure Peak Inspiratory Airway 27 Pressure Peak Inspiratory Airway 24 Pressure Peak Inspiratory Airway 25 Pressure Peak Inspiratory Airway 24 Pressure Results - Laboratory Findings CBC and BMP: 03/21/17 03:45 03/21/17 03:45 ABG ABG pH 7.44 pH Units (7.32-7.45) 03/20/17 04:22 ABG pCO2 44 mmHg (35-45) 03/20/17 04:22 ABG pO2 95 mmHg (85-104) 03/20/17 04:22 ABG O2 Saturation 98 % (95-98) 03/20/17 04:22 PT/INR, D-dimer PT 12.5 Seconds (9.4-12.1) H 03/13/17 13:43 Abnormal lab findings: Abnormal lab results WBC 26.4 K/mcL (4.3-11.1) H 03/21/17 03:45 RBC 2.74 M/mcL (4.19-5.50) L 03/21/17 03:45 Hgb 8.4 g/dL (12.9-16.9) L 03/21/17 03:45 Hct 26.5 % (37.5-50.1) L 03/21/17 03:45 RDW 17.2 % (11.5-14.5) H 03/21/17 03:45 Neutrophils # 22.5 K/mcL (1.6-8.9) H 03/21/17 03:45 Monocytes # 2.5 K/mcL (0.0-1.3) H 03/21/17 03:45 Nucleated RBCs/100 WBC 0.1 /100 WBC (0) H 03/21/17 03:45 Large Platelets Present (Not Present) A 03/21/17 03:45 Polychromasia 1+ (Not Present) A 03/21/17 03:45 Anisocytosis 1+ (Not Present) A 03/21/17 03:45 Macrocytosis Present (Not Present) A 03/21/17 03:45 PT 12.5 Seconds (9.4-12.1) H 03/13/17 13:43 APTT 36.4 Seconds (26.0-36.0) H 03/13/17 13:43 ABG HCO3 29 mEq/L (21-27) H 03/20/17 04:22 ABG Total CO2 31 mEq/L (20-26) H 03/20/17 04:22 ABG Base Excess 5 mEq/L (-2 to 3) H 03/20/17 04:22 BUN 75 mg/dL (8-23) H 03/21/17 03:45 Creatinine 5.67 mg/dL (0.70-1.30) H 03/21/17 03:45 Est GFR ( Amer) 12 (> 60) L 03/21/17 03:45 Est GFR (Non-Af Amer) 10 (> 60) L 03/21/17 03:45 Glucose 210 mg/dL (70-105) H 03/21/17 03:45 POC Glucose 265 (58-89) H 03/21/17 00:35 Calculated Osmolality 318 (280-300) H 03/21/17 03:45 Iron 58 mcg/dL (65-175) L 03/18/17 11:18 Transferrin 125 mg/dL (203-362) L 03/18/17 11:18 Alkaline Phosphatase 331 Units/L (34-104) H 03/13/17 13:43 Troponin I 0.07 ng/mL (< 0.04) H* 03/16/17 21:10 B-Natriuretic Peptide 2742 pg/mL (Less than 100) H 03/13/17 22:40 Albumin 3.3 g/dL (3.5-5.7) L 03/13/17 13:43 Globulin 3.7 g/dL (2.4-3.5) H 03/13/17 13:43 Albumin/Globulin Ratio 0.9 (1.1-2.2) L 03/13/17 13:43 25-OH Vitamin D Total 24 ng/mL (30-80) L 03/18/17 11:18 Folate 43.0 ng/mL (3.0-16.0) H 03/18/17 11:18 PTH Intact 395.7 pg/ml (10.0-65.0) H 03/18/17 11:18 Digoxin 0.5 ng/mL (0.8-2.0) L 03/13/17 13:43 Phenytoin 4.3 mcg/mL (10.0-20.0) L 03/15/17 04:12 Free Phenytoin 0.8 ug/mL (1.0-2.5) L 03/15/17 04:12 Total Phenytoin 5.2 ug/mL (10.0-20.0) L 03/15/17 04:12 Percent Free Phenytoin 15.4 % (8.0-14.0) H 03/15/17 04:12 Valproic Acid 14 mcg/mL (50-100) L 03/13/17 13:43 - Microbiology Findings Microbiology Findings: Microbiology, Last 48 Hours 03/18/17 13:20 Blood Culture - Preliminary Peripheral Venipuncture No growth. 03/18/17 13:20 Blood Culture - Preliminary Peripheral Venipuncture No growth. - Clinical Findings Intake & Output: Intake & Output 03/20/17 03/21/17 03/21/17 23:59 07:59 15:59 Intake Total 639.5 / 639.5 394 / 394 Output Total 0 / 0 0 / 0 Balance 639.5 / 639.5 394 / 394 - Attending Attestation I examined this patient and my medical decision-making was reviewed with the Resident Physician. I agree with the documented findings, disposition and treatment plan as described except to the extent set forth below. We independently had [id number] contact with the patient Patient seen and examined at bedside Labs, radiology, chart personally reviewed. Management was reviewed during multidisciplinary critical care rounds. -Respiratory failure which is chronic and stable on vent -Worsening leukocytosis with concern for multidrug-resistant organism in addition to Pseudomonas broadening antimicrobials reculturing high-risk for C. difficile if diarrhea we will send PCR -ESRD on dialysis -Transfer to [facility] facility on hold pending evaluation of presumed new infection
[2017-03-21] MEDS ORDERED: WATER IVPB ONE (10:00)
[2017-03-21] MEDS ORDERED: D5 IVPB ONE (10:00)
[2017-03-21] MEDS: Miconazole w/zinc oxide&karaya 92 APPL/92 GM TUBE TP SCH ×2 (10:00→21:17)
[2017-03-21] MEDS ORDERED: Vancomycin 1,250 MG in D5% in Water 250 ML IVPB ONE (10:00)
[2017-03-21] MEDS ORDERED: TOBRAMYCIN SULF IVPB ONE (10:00)
[2017-03-21] MEDS ORDERED: Meropenem 1,000 MG in Water for inj. (sterile) 20 ML 10 ML IVP SCH (10:00)
[2017-03-21] MEDS: Pantoprazole 40 MG VIAL IVP SCH (10:08)
[2017-03-21] MEDS: *HR* Amiodarone 200 MG TABLET PO SCH (10:08)
[2017-03-21] MEDS: Cholecalciferol (D-3) 1,000 UNIT TABLET PO SCH (10:08)
[2017-03-21] MEDS: Leptospermum Honey Gel 44 ML TUBE TP SCH ×2 (10:12→21:17)
[2017-03-21] MEDS ORDERED: [UNRECOGNIZED DRUG - REMARK] MC PRN (10:17)
[2017-03-21] MEDS: Valproic Acid INJ 250 MG in 0.9 % Sodium Chloride 100 ML IVPB SCH ×2 (11:18→21:05)
[2017-03-21] MEDS ORDERED: Vancomycin 1,000 MG in D5% in Water 250 ML IVPB ONE (12:00)
[2017-03-21] MEDS: Chlorhexidine Rinse 15 ML MOUTHWASH MM SCH ×2 (14:41→21:10)
[2017-03-22] MEDS: Insulin LISPRO 300 UNITS/3 ML VIAL SQ SCH ×6 (00:15→21:12)
[2017-03-22] MEDS: Ipratropium/Albuterol Neb 3 ML IH SCH ×6 (03:11→23:21)
[2017-03-22 03:44] LABS: Basophils # 0.1 K/mcL (0.0-0.2); Basophils % 0.4 %; Eosinophils # 0.3 K/mcL (0.0-0.6); Eosinophils % 1.4 %; Hematocrit 25.8 % (37.5-50.1); Hemoglobin 8.3 g/dL (12.9-16.9); Immature Granulocytes % 0.7 % (0-4); Lymphocytes # 1.2 K/mcL (0.6-4.6); Lymphocytes % 5.1 %; Mean Corpuscular HGB Conc 32.2 g/dL (31.6-35.5); Mean Corpuscular Hemoglobin 30.4 pg (28.0-33.3); Mean Corpuscular Volume 94.5 fL (83.0-100.0); Mean Platelet Volume 11.5 fL (9.4-12.4); Monocytes % 8.5 %; Neutrophils # 19.9 K/mcL (1.6-8.9); Platelet Count 380 K/mcL (140-400); Red Blood Count 2.73 M/mcL (4.19-5.50); Red Cell Distribution Width 16.8 % (11.5-14.5); Segmented Neutrophils % 83.9 %
[2017-03-22 04:24] LABS: ABG Base Excess 5 mEq/L (-2 to 3); ABG HCO3 29 mEq/L (21-27); ABG Oxygen Saturation 95 % (95-98); ABG PCO2 43 mmHg (35-45); ABG PH 7.45 pH Units (7.32-7.45); ABG PO2 73 mmHg (85-104); ABG TCO2 31 mEq/L (20-26); Blood Gas Modality ASSIST CONTROL; Blood Gas PEEP 5 cm H2O; Blood Gas Respiration Rate 18; Blood Gas VT 500 cc
[2017-03-22 04:49] LABS: Calcium 10.5 mg/dL (8.6-10.3); Magnesium 2.4 mg/dL (1.6-2.6); Potassium 4.4 mEq/L (3.5-5.1)
[2017-03-22] MEDS: *HR* Heparin 5,000 UNIT/ML VIAL SQ SCH ×3 (05:35→20:58)
--- NOTE | 2017-03-22 06:01 | Nephrology Progress Note ---
Date of Encounter: 03/22/17 Time of Encounter: 06:01 - Assessment and Plan (1) ESRD (end stage renal disease) on dialysis Current Visit: No Status: Chronic Patient is a previous [facility] dialysis patient who went to [facility] for his treatments prior to being transferred to [facility] a number of months ago. 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, anticipate transfer to [facility] on 03/25, as his dialysis chair will become available on 03/26/17 (2) Anemia Current Visit: Yes Status: Acute Goal hgb 10-11 Transfuse per parameters Anemia workup: Iron 58, iron % sat 33, Folate 43, Vit B12 level 563 Continue to monitor Qualifiers: Anemia type: due to chronic kidney disease Chronic kidney disease stage: on chronic dialysis Qualified Code(s): N18.6 - End stage renal disease; D63.1 - Anemia in chronic kidney disease; D63.1 - Anemia in chronic kidney disease; Z99.2 - Dependence on renal dialysis; Z99.2 - Dependence on renal dialysis; Z99.2 - Dependence on renal dialysis; Z99.2 - Dependence on renal dialysis (3) Pneumonia Current Visit: Yes Status: Acute Management per critical care team Avoid nephrotoxins Qualifiers: Pneumonia type: due to Pseudomonas Laterality: bilateral Lung location: unspecified part of lung Qualified Code(s): J15.1 - Pneumonia due to Pseudomonas (4) Acute and chronic respiratory failure Current Visit: Yes Status: Acute Patient with a trach. Patient is vent dependent. Management per critical care team. Qualifiers: Respiratory failure complication: hypoxia Qualified Code(s): J96.21 - Acute and chronic respiratory failure with hypoxia (5) Cardiac arrest Current Visit: Yes Status: Acute Management per critical care team/ cardiology (6) Hypertension Current Visit: Yes Status: Acute Will continue to monitor Titrate antihypertensive medications as needed Qualifiers: Hypertension type: unspecified Qualified Code(s): I10 - Essential (primary ) hypertension (7) Diabetes mellitus Current Visit: No Status: Chronic Management per primary team 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 mellitus shelter insulin use: with intermodal dispatcher use Chronic kidney disease stage: on chronic dialysis Qualified Code(s): E11.22 - Type 2 diabetes mellitus with diabetic chronic kidney disease; N18.6 - End stage renal disease; N18.6 - End stage renal disease; N18.6 - End stage renal disease; N18.6 - End stage renal disease; Z79.4 - senior living (current) use of insulin; Z79.4 - senior living (current) use of insulin; Z79.4 - terminal block assembler (current ) use of insulin; Z79.4 - terminal block assembler (current) use of insulin; Z99.2 - Dependence on renal dialysis; Z99.2 - Dependence on renal dialysis; Z99.2 - Dependence on renal dialysis; Z99.2 - Dependence on renal dialysis (8) Vitamin D deficiency Current Visit: Yes Status: Acute Vit D level 24 Hold Cholecalciferol Vit D3 due to hypercalcemia Would recommend using Sensipar once patient tolerating PO intake (unable to be crushed) (9) Hypercalcemia Current Visit: Yes Status: Acute Elevated Ca PTH 395.7 Hold Cholecalciferol Vit D3 due to hypercalcemia Subjective Principal diagnosis: PEA Arrest Interval history: Patient seen and examined. He remains on ventilator, off sedation, and is able to nod his head to answer questions. Patient is agitated this AM. Anticipate HD today. 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, anticipate transfer to [facility] on 03/25/17, as his dialysis chair will become available on 03/26/17 Objective - Vital Signs Vital signs: Vital Signs Temp Pulse Resp BP Pulse Ox 03/22/17 05:20 26 99 03/22/17 05:00 110 26 127/65 100 03/22/17 04:26 100.4 F H 03/22/17 04:00 107 22 115/39 98 03/22/17 03:58 105 03/22/17 03:12 18 106/54 97 03/22/17 03:00 105 26 106/34 97 03/22/17 02:00 102 26 115/43 98 03/22/17 01:15 20 108/66 98 03/22/17 01:00 102 26 108/66 100 03/22/17 00:00 96 18 102/37 98 03/21/17 23:59 98 F 90 03/21/17 23:25 21 117/46 100 03/21/17 23:00 89 21 117/46 99 03/21/17 22:00 89 18 93/44 98 02/08/18 21:00 100 22 104/57 98 03/21/17 20:23 98 F 03/21/17 20:21 101 03/21/17 20:00 101 18 115/54 97 03/21/17 19:42 25 100 03/21/17 19:00 99 18 143/73 99 03/21/17 18:30 98 18 143/68 99 03/21/17 17:40 12 89/63 100 03/21/17 17:30 88 18 137/69 98 03/21/17 16:30 89 19 113/50 99 03/21/17 15:30 99.0 F 96 18 102/64 100 03/21/17 15:06 19 89/63 100 03/21/17 14:30 98 18 104/62 99 03/21/17 13:30 112 19 115/76 100 03/21/17 13:28 22 98 03/21/17 12:30 112 18 146/76 100 03/21/17 12:17 97.8 F 03/21/17 11:42 22 98 03/21/17 11:30 93 19 89/63 99 03/21/17 10:30 104 18 102/41 99 03/21/17 09:51 22 115/49 98 03/21/17 09:30 107 20 127/45 100 03/21/17 08:30 22 127/45 98 03/21/17 07:40 21 93/46 98 03/21/17 07:30 99.0 F 108 18 93/56 97 03/21/17 06:04 21 109/45 100 Intake and Output 03/21/17 03/21/17 03/22/17 15:59 23:59 07:59 Intake Total 657.5 / 657.5 1197.5 / 1197.5 433 / 433 Balance 657.5 / 657.5 1197.5 / 1197.5 433 / 433 Intake: IV Fluids 212.5 / 212.5 302.5 / 302.5 0 / 0 PRECEDEX Premix 400 mcg In 100 100 / 100 200 / 200 0 / 0 ml @ 0.2 MCG/KG/HR 4.468 mls/hr IVC .[id number] [facility] Rx#: [id number] Merrem 1,000 MG In Water for inj. (sterile) 10 ML @ 200 mls/ hr IVP DAILY [facility] Rx#:[id number] Depacon 250 MG In 0.9 % Sodium 102.5 / 102.5 102.5 / 102.5 Chloride 100 ML @ 100 mls/hr IVPB BID [facility] Rx#:[id number] Tube Feeding 445 / 445 895 / 895 433 / 433 Other: Meal Nepro Stool Size Large Stool Consistency loose # Bowel Movements 1 Weight 80.2 kg Blood Glucose* [phone] - General Appearance General appearance: Present: well-developed, well-nourished, chronically ill EENT: Present: ATNC, mucous membranes dry Neck: Present: supple (trach in place) Respiratory: Present: clear (trach, on ventilator) Cardiology: Present: no murmurs, no rub, no gallops, no edema, regular rate, regular rhythm Dialysis Vascular Access: Arteriovenous Fistula (LUE) thrill: Yes bruit: Yes Gastrointestinal: Present: normoactive bowel sounds, no tenderness, no guarding (urostomy in place) Integumentary: Present: no rash, ulcer (Stage 3 pressure ulcer of left hip) Neurologic: Present: aphasic (awake, nods head to answer questions, residual left sided deficits unchanged) Musculoskeletal: Present: no deformities, decreased ROM (left sided deficits unchanged) Psychiatric: Present: agitated (awake, on ventilator, nods head to questions) - Lab 03/22/17 03:35 03/22/17 03:35 Most recent lab results ABG pH 7.45 pH Units (7.32-7.45) 03/22/17 04:19 ABG pCO2 43 mmHg (35-45) 03/22/17 04:19 ABG pO2 73 mmHg (85-104) L 03/22/17 04:19 ABG HCO3 29 mEq/L (21-27) H 03/22/17 04:19 ABG O2 Saturation 95 % (95-98) 03/22/17 04:19 Calcium 10.5 mg/dL (8.6-10.3) H 03/22/17 03:35 Phosphorus 4.1 mg/dL (2.7-4.5) 03/13/17 15:34 Magnesium 2.4 mg/dL (1.6-2.6) 03/22/17 03:35 - VTE Documentation of Mechanical Device: Intermittent pneumatic compression device Consult Discharge Plan - Plan Referrals: NONE,PCP [Primary Care Provider] -
[2017-03-22] MEDS ORDERED: 0.9 % Sodium Chloride 250 ML IVC PRN (07:53)
[2017-03-22] MEDS ORDERED: 0.9 % Sodium Chloride 1,000 ML PRIME SCH (08:00)
--- NOTE | 2017-03-22 08:14 | Pulmonology Progress Note ---
<Mitchell Worthy Rao - Last Filed: 03/22/17 11:14> Date of Encounter: 03/22/17 Time of Encounter: 08:12 Assessment and Plan (1) Acute and chronic respiratory failure Current Visit: Yes Status: Acute Patient is on a ventilator chronically. There were numerous attempts to try to wean patient from the ventilator but there has been no success. Prior to arrival to [facility] emergency department the patient was a roughly on 100% FiO2 with a PEEP of 10. He has a history of several bouts of pneumonia within the past year The patient is down to FiO2 40%. He is doing well with this. Bilateral infiltrates on CXR: likely combination of infectious and cardiogenic edema. The patient does have a left ventricular EF of 45%. The patient has done well on the ventilator as he is ventilator dependent at baseline. We will continue to monitor patient's respiratory status. In addition we will continue to attempt to pull off fluid. Sputum cultures shows Pseudomonas Leukocytosis worsening, another fever at night Repeat cultures 03/21/17 pending Concern about C. diff - Stool PCR pending Continue Vancomycin, Meropenem, and Tobramycin Qualifiers: Respiratory failure complication: hypoxia Qualified Code(s): J96.21 - Acute and chronic respiratory failure with hypoxia (2) ESRD (end stage renal disease) on dialysis Current Visit: No Status: Chronic Dialysis per nephrology (3) Pneumonia Current Visit: Yes Status: Acute Likely healthcare associated pneumonia - sputum culture shows Pseudomonas Blood cultures 03/13 negative Repeat cultures drawn on 03/18 - preliminary negative Temp and WBC elevated - mild improvement in leukocytosis Repeat cultures on 03/21 pending Continue Meropenem, Tobramycin, and Vancomycin Qualifiers: Pneumonia type: due to Pseudomonas Laterality: bilateral Lung location: unspecified part of lung Qualified Code(s): J15.1 - Pneumonia due to Pseudomonas (4) Altered mental state Current Visit: Yes Status: Acute Intermittently follows commands. No new focal deficits. Qualifiers: Altered mental status type: coma Coma depth: Kal coma 3-8 Coma timing : in the field (EMT or ambulance) Qualified Code(s): R40.2431 - Sedan coma scale score 3-8, in the field [EMT or ambulance] (5) Hypertension Current Visit: Yes Status: Acute Continue Lopressor Qualifiers: Hypertension type: unspecified Qualified Code(s): I10 - Essential (primary ) hypertension (6) Insulin dependent diabetes mellitus Current Visit: No Status: Chronic Increased to high dose SSI and Levemir increased to 28U BG 140-200's now (7) History of seizure disorder Current Visit: Yes Status: Acute On valproic acid and phenytoin (8) Ischemic stroke of frontal lobe Current Visit: No Status: Acute (9) DVT prophylaxis Current Visit: Yes Status: Acute Subq heparin Subjective Principal diagnosis: PEA Arrest Interval history: Pt had a fever again last night, up to 100.4. Mental status remains about the same, he is able to respond to commands and shake his head yes/no. He remains hemodynamically stable. Objective PUL Vital signs: Last Vital Signs Temp 100.4 F H 03/22/17 04:26 Pulse 107 03/22/17 06:00 Resp 18 03/22/17 07:49 BP 107/30 03/22/17 07:49 Pulse Ox 96 03/22/17 07:49 General appearance: no acute distress Eyes: nonicteric Auscultation: bilateral: rhonchi Cardiovascular: other (regular, tachycardia) Gastrointestinal: normoactive bowel sounds Extremities: no cyanosis, no edema Ventilator Settings Ventilator Settings: Ventilator Settings, Last 8 Hours Ventilator Mode A/C Ventilator Mode A/C Ventilator Mode A/C Ventilator Mode A/C Ventilator Mode A/C Ventilator Mode A/C Ventilator Mode A/C Ventilator Mode A/C Ventilator Mode A/C Ventilator Mode A/C Ventilator Mode A/C Ventilator Tidal Volume 500 Setting Ventilator Tidal Volume 500 Setting Ventilator Tidal Volume 500 Setting Ventilator Tidal Volume 500 Setting Ventilator Tidal Volume 500 Setting Ventilator Tidal Volume 500 Setting Ventilator Tidal Volume 500 Setting Ventilator Tidal Volume 500 Setting Ventilator Tidal Volume 500 Setting Ventilator Tidal Volume 500 Setting Ventilator Tidal Volume 500 Setting Ventilator Respiratory Rate 18 Setting Ventilator Respiratory Rate 18 Setting Ventilator Respiratory Rate 18 Setting Ventilator Respiratory Rate 18 Setting Ventilator Respiratory Rate 18 Setting Ventilator Respiratory Rate 18 Setting Ventilator Respiratory Rate 18 Setting Ventilator Respiratory Rate 18 Setting Ventilator Respiratory Rate 18 Setting Ventilator Respiratory Rate 18 Setting Ventilator Respiratory Rate 18 Setting Actual Respiratory Rate 18 Actual Respiratory Rate 18 Actual Respiratory Rate 26 Actual Respiratory Rate 26 Actual Respiratory Rate 22 Actual Respiratory Rate 18 Actual Respiratory Rate 18 Actual Respiratory Rate 26 Actual Respiratory Rate 20 Actual Respiratory Rate 26 Positive End Expiratory 5 Pressure Positive End Expiratory 5 Pressure Positive End Expiratory 5 Pressure Positive End Expiratory 5 Pressure Positive End Expiratory 5 Pressure Positive End Expiratory 5 Pressure Positive End Expiratory 5 Pressure Positive End Expiratory 5 Pressure Positive End Expiratory 5 Pressure Positive End Expiratory 5 Pressure Positive End Expiratory 5 Pressure Peak Inspiratory Airway 23 Pressure Peak Inspiratory Airway 21 Pressure Peak Inspiratory Airway 21 Pressure Peak Inspiratory Airway 21 Pressure Peak Inspiratory Airway 22 Pressure Peak Inspiratory Airway 23 Pressure Peak Inspiratory Airway 23 Pressure Peak Inspiratory Airway 18 Pressure Peak Inspiratory Airway 19 Pressure Peak Inspiratory Airway 18 Pressure Results - Laboratory Findings CBC and BMP: 03/22/17 03:35 03/22/17 03:35 ABG ABG pH 7.45 pH Units (7.32-7.45) 03/22/17 04:19 ABG pCO2 43 mmHg (35-45) 03/22/17 04:19 ABG pO2 73 mmHg (85-104) L 03/22/17 04:19 ABG O2 Saturation 95 % (95-98) 03/22/17 04:19 PT/INR, D-dimer PT 12.5 Seconds (9.4-12.1) H 03/13/17 13:43 Abnormal lab findings: Abnormal lab results WBC 23.7 K/mcL (4.3-11.1) H 03/22/17 03:35 RBC 2.73 M/mcL (4.19-5.50) L 03/22/17 03:35 Hgb 8.3 g/dL (12.9-16.9) L 03/22/17 03:35 Hct 25.8 % (37.5-50.1) L 03/22/17 03:35 RDW 16.8 % (11.5-14.5) H 03/22/17 03:35 Neutrophils # 19.9 K/mcL (1.6-8.9) H 03/22/17 03:35 Monocytes # 2.0 K/mcL (0.0-1.3) H 03/22/17 03:35 Nucleated RBCs/100 WBC 0.1 /100 WBC (0) H 03/21/17 03:45 Large Platelets Present (Not Present) A 03/21/17 03:45 Polychromasia 1+ (Not Present) A 03/21/17 03:45 Anisocytosis 1+ (Not Present) A 03/21/17 03:45 Macrocytosis Present (Not Present) A 03/21/17 03:45 PT 12.5 Seconds (9.4-12.1) H 03/13/17 13:43 APTT 36.4 Seconds (26.0-36.0) H 03/13/17 13:43 ABG pO2 73 mmHg (85-104) L 03/22/17 04:19 ABG HCO3 29 mEq/L (21-27) H 03/22/17 04:19 ABG Total CO2 31 mEq/L (20-26) H 03/22/17 04:19 ABG Base Excess 5 mEq/L (-2 to 3) H 03/22/17 04:19 BUN 102 mg/dL (8-23) H 03/22/17 03:35 Creatinine 6.77 mg/dL (0.70-1.30) H 03/22/17 03:35 Est GFR ( Amer) 10 (> 60) L 03/22/17 03:35 Est GFR (Non-Af Amer) 8 (> 60) L 03/22/17 03:35 Glucose 143 mg/dL (70-105) H 03/22/17 03:35 POC Glucose 183 (58-89) H 03/21/17 23:45 Calculated Osmolality 328 (280-300) H 03/22/17 03:35 Calcium 10.5 mg/dL (8.6-10.3) H 03/22/17 03:35 Iron 58 mcg/dL (65-175) L 03/18/17 11:18 Transferrin 125 mg/dL (203-362) L 03/18/17 11:18 Alkaline Phosphatase 331 Units/L (34-104) H 03/13/17 13:43 Troponin I 0.07 ng/mL (< 0.04) H* 03/16/17 21:10 B-Natriuretic Peptide 2742 pg/mL (Less than 100) H 03/13/17 22:40 Albumin 3.3 g/dL (3.5-5.7) L 03/13/17 13:43 Globulin 3.7 g/dL (2.4-3.5) H 03/13/17 13:43 Albumin/Globulin Ratio 0.9 (1.1-2.2) L 03/13/17 13:43 25-OH Vitamin D Total 24 ng/mL (30-80) L 03/18/17 11:18 Folate 43.0 ng/mL (3.0-16.0) H 03/18/17 11:18 PTH Intact 395.7 pg/ml (10.0-65.0) H 03/18/17 11:18 Digoxin 0.5 ng/mL (0.8-2.0) L 03/13/17 13:43 Phenytoin 4.3 mcg/mL (10.0-20.0) L 03/15/17 04:12 Free Phenytoin 0.8 ug/mL (1.0-2.5) L 03/15/17 04:12 Total Phenytoin 5.2 ug/mL (10.0-20.0) L 03/15/17 04:12 Percent Free Phenytoin 15.4 % (8.0-14.0) H 03/15/17 04:12 Valproic Acid 14 mcg/mL (50-100) L 03/13/17 13:43 - Microbiology Findings Microbiology Findings: Microbiology, Last 48 Hours 03/21/17 11:30 Sputum Culture - Preliminary Sputum 03/18/17 13:20 Blood Culture - Preliminary Peripheral Venipuncture No growth. 03/18/17 13:20 Blood Culture - Preliminary Peripheral Venipuncture No growth. - Clinical Findings Intake & Output: Intake & Output 03/21/17 03/22/17 03/22/17 23:59 07:59 15:59 Intake Total 1197.5 / 1197.5 433 / 433 Balance 1197.5 / 1197.5 433 / 433 Weight 80.2 kg - VTE Documentation of Mechanical Device: Intermittent pneumatic compression device Consult Discharge Plan - Plan Referrals: NONE,PCP [Primary Care Provider] - <Amador Patel W - Last Filed: 03/22/17 12:00> Date of Encounter: 03/22/17 Assessment and Plan (1) Acute respiratory failure Current Visit: No Status: Acute Qualifiers: Respiratory failure complication: hypoxia Qualified Code(s): J96.01 - Acute respiratory failure with hypoxia (2) ESRD (end stage renal disease) on dialysis Current Visit: No Status: Chronic (3) Altered mental state Current Visit: Yes Status: Acute Qualifiers: Altered mental status type: coma Coma depth: Sedan coma 3-8 Coma timing : in the field (EMT or ambulance) Qualified Code(s): R40.2431 - Kal coma scale score 3-8, in the field [EMT or ambulance] (4) Ischemic stroke of frontal lobe Current Visit: No Status: Acute (5) Pneumonia Current Visit: Yes Status: Acute Qualifiers: Pneumonia type: due to Pseudomonas Laterality: bilateral Lung location: unspecified part of lung Qualified Code(s): J15.1 - Pneumonia due to Pseudomonas (6) History of seizure disorder Current Visit: Yes Status: Acute (7) Hypertension Current Visit: Yes Status: Acute Qualifiers: Hypertension type: unspecified Qualified Code(s): I10 - Essential (primary ) hypertension (8) DVT prophylaxis Current Visit: Yes Status: Acute Objective PUL Vital signs: Last Vital Signs Temp 99.7 F H 03/22/17 08:00 Pulse 97 03/22/17 10:40 Resp 23 03/22/17 11:06 BP 124/64 03/22/17 11:06 Pulse Ox 98 03/22/17 11:06 Ventilator Settings Ventilator Settings: Ventilator Settings, Last 8 Hours Ventilator Mode A/C Ventilator Mode A/C Ventilator Mode A/C Ventilator Mode A/C Ventilator Mode A/C Ventilator Mode A/C Ventilator Mode A/C Ventilator Mode A/C Ventilator Mode A/C Ventilator Tidal Volume 500 Setting Ventilator Tidal Volume 500 Setting Ventilator Tidal Volume 500 Setting Ventilator Tidal Volume 500 Setting Ventilator Tidal Volume 500 Setting Ventilator Tidal Volume 500 Setting Ventilator Tidal Volume 500 Setting Ventilator Tidal Volume 500 Setting Ventilator Tidal Volume 500 Setting Ventilator Tidal Volume 500 Setting Ventilator Tidal Volume 500 Setting Ventilator Tidal Volume 500 Setting Ventilator Respiratory Rate 18 Setting Ventilator Respiratory Rate 18 Setting Ventilator Respiratory Rate 18 Setting Ventilator Respiratory Rate 18 Setting Ventilator Respiratory Rate 18 Setting Ventilator Respiratory Rate 18 Setting Ventilator Respiratory Rate 18 Setting Ventilator Respiratory Rate 18 Setting Ventilator Respiratory Rate 18 Setting Ventilator Respiratory Rate 18 Setting Ventilator Respiratory Rate 18 Setting Ventilator Respiratory Rate 18 Setting Actual Respiratory Rate 25 Actual Respiratory Rate 21 Actual Respiratory Rate 18 Actual Respiratory Rate 18 Actual Respiratory Rate 19 Actual Respiratory Rate 18 Actual Respiratory Rate 20 Actual Respiratory Rate 18 Actual Respiratory Rate 26 Actual Respiratory Rate 26 Actual Respiratory Rate 22 Positive End Expiratory 5 Pressure Positive End Expiratory 5 Pressure Positive End Expiratory 5 Pressure Positive End Expiratory 5 Pressure Positive End Expiratory 5 Pressure Positive End Expiratory 5 Pressure Positive End Expiratory 5 Pressure Positive End Expiratory 5 Pressure Positive End Expiratory 5 Pressure Positive End Expiratory 5 Pressure Positive End Expiratory 5 Pressure Positive End Expiratory 5 Pressure Peak Inspiratory Airway 22 Pressure Peak Inspiratory Airway 20 Pressure Peak Inspiratory Airway 21 Pressure Peak Inspiratory Airway 21 Pressure Peak Inspiratory Airway 23 Pressure Peak Inspiratory Airway 23 Pressure Peak Inspiratory Airway 33 Pressure Peak Inspiratory Airway 21 Pressure Peak Inspiratory Airway 21 Pressure Peak Inspiratory Airway 21 Pressure Peak Inspiratory Airway 22 Pressure Results - Laboratory Findings CBC and BMP: 03/22/17 03:35 03/22/17 03:35 ABG ABG pH 7.45 pH Units (7.32-7.45) 03/22/17 04:19 ABG pCO2 43 mmHg (35-45) 03/22/17 04:19 ABG pO2 73 mmHg (85-104) L 03/22/17 04:19 ABG O2 Saturation 95 % (95-98) 03/22/17 04:19 PT/INR, D-dimer PT 12.5 Seconds (9.4-12.1) H 03/13/17 13:43 Abnormal lab findings: Abnormal lab results WBC 23.7 K/mcL (4.3-11.1) H 03/22/17 03:35 RBC 2.73 M/mcL (4.19-5.50) L 03/22/17 03:35 Hgb 8.3 g/dL (12.9-16.9) L 03/22/17 03:35 Hct 25.8 % (37.5-50.1) L 03/22/17 03:35 RDW 16.8 % (11.5-14.5) H 03/22/17 03:35 Neutrophils # 19.9 K/mcL (1.6-8.9) H 03/22/17 03:35 Monocytes # 2.0 K/mcL (0.0-1.3) H 03/22/17 03:35 Nucleated RBCs/100 WBC 0.1 /100 WBC (0) H 03/21/17 03:45 Large Platelets Present (Not Present) A 03/21/17 03:45 Polychromasia 1+ (Not Present) A 03/21/17 03:45 Anisocytosis 1+ (Not Present) A 03/21/17 03:45 Macrocytosis Present (Not Present) A 03/21/17 03:45 PT 12.5 Seconds (9.4-12.1) H 03/13/17 13:43 APTT 36.4 Seconds (26.0-36.0) H 03/13/17 13:43 ABG pO2 73 mmHg (85-104) L 03/22/17 04:19 ABG HCO3 29 mEq/L (21-27) H 03/22/17 04:19 ABG Total CO2 31 mEq/L (20-26) H 03/22/17 04:19 ABG Base Excess 5 mEq/L (-2 to 3) H 03/22/17 04:19 BUN 102 mg/dL (8-23) H 03/22/17 03:35 Creatinine 6.77 mg/dL (0.70-1.30) H 03/22/17 03:35 Est GFR ( Amer) 10 (> 60) L 03/22/17 03:35 Est GFR (Non-Af Amer) 8 (> 60) L 03/22/17 03:35 Glucose 143 mg/dL (70-105) H 03/22/17 03:35 POC Glucose 183 (58-89) H 03/21/17 23:45 Calculated Osmolality 328 (280-300) H 03/22/17 03:35 Calcium 10.5 mg/dL (8.6-10.3) H 03/22/17 03:35 Phosphorus 5.1 mg/dL (2.7-4.5) H 03/22/17 03:35 Iron 58 mcg/dL (65-175) L 03/18/17 11:18 Transferrin 125 mg/dL (203-362) L 03/18/17 11:18 Alkaline Phosphatase 331 Units/L (34-104) H 03/13/17 13:43 Troponin I 0.07 ng/mL (< 0.04) H* 03/16/17 21:10 B-Natriuretic Peptide 2742 pg/mL (Less than 100) H 03/13/17 22:40 Albumin 3.3 g/dL (3.5-5.7) L 03/13/17 13:43 Globulin 3.7 g/dL (2.4-3.5) H 03/13/17 13:43 Albumin/Globulin Ratio 0.9 (1.1-2.2) L 03/13/17 13:43 25-OH Vitamin D Total 24 ng/mL (30-80) L 03/18/17 11:18 Folate 43.0 ng/mL (3.0-16.0) H 03/18/17 11:18 PTH Intact 395.7 pg/ml (10.0-65.0) H 03/18/17 11:18 Digoxin 0.5 ng/mL (0.8-2.0) L 03/13/17 13:43 Phenytoin 4.3 mcg/mL (10.0-20.0) L 03/15/17 04:12 Free Phenytoin 0.8 ug/mL (1.0-2.5) L 03/15/17 04:12 Total Phenytoin 5.2 ug/mL (10.0-20.0) L 03/15/17 04:12 Percent Free Phenytoin 15.4 % (8.0-14.0) H 03/15/17 04:12 Valproic Acid 14 mcg/mL (50-100) L 03/13/17 13:43 - Microbiology Findings Microbiology Findings: Microbiology, Last 48 Hours 03/21/17 11:30 Sputum Culture - Preliminary Sputum - Clinical Findings Intake & Output: Intake & Output 03/21/17 03/22/17 03/22/17 23:59 07:59 15:59 Intake Total 1197.5 / 1197.5 663 / 663 212.5 / 212.5 Balance 1197.5 / 1197.5 663 / 663 212.5 / 212.5 Weight 80.2 kg - Attending Attestation I examined this patient and my medical decision-making was reviewed with the Resident Physician. I agree with the documented findings, disposition and treatment plan as described except to the extent set forth below. We independently had [id number] contact with the patient Patient seen and examined at bedside Labs, radiology, chart personally reviewed. Management was reviewed during multidisciplinary critical care rounds. Seroquel started for agitation and patient appears more comfortable White count trending down with antimicrobial modification yesterday cultures pending with planned to de-escalate based upon speciation and sensitivity Awaiting discharge to LTAC possibly early next week
[2017-03-22] MEDS: Dexmedetomidine HCl 400 MCG/100 ML MLS IVC SCH (08:30)
[2017-03-22] MEDS: Pantoprazole 40 MG VIAL IVP SCH (08:50)
[2017-03-22] MEDS: Cholecalciferol (D-3) 1,000 UNIT TABLET PO SCH (08:50)
[2017-03-22] MEDS: Leptospermum Honey Gel 44 ML TUBE TP SCH ×2 (08:51→21:00)
[2017-03-22] MEDS: Chlorhexidine Rinse 15 ML MOUTHWASH MM SCH ×2 (08:53→20:58)
[2017-03-22] MEDS: Miconazole w/zinc oxide&karaya 92 APPL/92 GM TUBE TP SCH ×2 (09:01→21:00)
[2017-03-22] MEDS: Valproic Acid INJ 250 MG in 0.9 % Sodium Chloride 100 ML IVPB SCH ×2 (09:01→20:58)
[2017-03-22] MEDS: Insulin DETEMIR 100 UNIT/ML X5UNITS SQ SCH (09:07)
[2017-03-22] MEDS: *HR* Amiodarone 200 MG TABLET PO SCH (10:00)
[2017-03-22 10:53] LABS: Adenovirus F 40/41 PCR Not detected (Not detect); Astrovirus PCR Not detected (Not detect); C.difficile Toxin A/B by PCR Not detected (Not detect); Campylobacter by PCR Not detected (Not detect); Cryptosporidium by PCR Not detected (Not detect); Cyclospora cayetanensis PCR Not detected (Not detect); E. coli O157 by PCR Not detected (Not detect); Entamoeba histolytica PCR Not detected (Not detect); Enteroaggregative E.coli(EAEC) Not detected (Not detect); Enteropathogenic E.coli(EPEC) Not detected (Not detect); Enterotoxigenic E.coli (ETEC) Not detected (Not detect); Giardia lamblia PCR Not detected (Not detect); Norovirus GI/GII PCR Not detected (Not detect); Plesiomonas shigelloides PCR Not detected (Not detect); Rotavirus A PCR Not detected (Not detect); Salmonella PCR Not detected (Not detect); Sapovirus PCR Not detected (Not detect); Shig/EnteroinvasiveE coli EIEC Not detected (Not detect); Shigalike tox-prod E coli STEC Not detected (Not detect); Vibrio PCR Not detected (Not detect); Vibrio cholerae PCR Not detected (Not detect); Yersinia enterocolitica PCR Not detected (Not detect)
[2017-03-22 11:04] LABS: Phosphorous 5.1 mg/dL (2.7-4.5)
[2017-03-22] MEDS ORDERED: 0.9 % Sodium Chloride 2,000 ML ONE (12:15)
[2017-03-22] MEDS: Dexmedetomidine HCl 200 MCG/50 ML MLS IVC SCH ×2 (14:05→17:17)
[2017-03-22] MEDS ORDERED: Meropenem 1,000 MG in Water for inj. (sterile) 20 ML 10 ML IVP SCH (17:00)
[2017-03-22] MEDS: WATER IVPB SCH (18:38)
[2017-03-22] MEDS: D5 IVPB SCH (18:38)
[2017-03-22] MEDS: TOBRAMYCIN SULF IVPB SCH (18:38)
[2017-03-23] MEDS: Insulin LISPRO 300 UNITS/3 ML VIAL SQ SCH ×7 (00:11→20:22)
[2017-03-23] MEDS: Dexmedetomidine HCl 200 MCG/50 ML MLS IVC SCH ×3 (03:11→20:20)
[2017-03-23] MEDS: Ipratropium/Albuterol Neb 3 ML IH SCH ×6 (03:27→23:26)
[2017-03-23] MEDS: *HR* Heparin 5,000 UNIT/ML VIAL SQ SCH ×3 (05:07→20:17)
[2017-03-23 05:29] LABS: Basophils # 0.1 K/mcL (0.0-0.2); Basophils % 0.4 %; Eosinophils # 0.3 K/mcL (0.0-0.6); Eosinophils % 1.2 %; Hemoglobin 8.4 g/dL (12.9-16.9); Immature Granulocytes % 0.8 % (0-4); Lymphocytes # 0.7 K/mcL (0.6-4.6); Lymphocytes % 3.3 %; Mean Corpuscular HGB Conc 32.3 g/dL (31.6-35.5); Mean Corpuscular Hemoglobin 30.9 pg (28.0-33.3); Mean Corpuscular Volume 95.6 fL (83.0-100.0); Monocytes # 1.9 K/mcL (0.0-1.3); Monocytes % 8.9 %; Neutrophils # 18.4 K/mcL (1.6-8.9); Platelet Count 392 K/mcL (140-400); Red Blood Count 2.72 M/mcL (4.19-5.50); Red Cell Distribution Width 16.6 % (11.5-14.5); Segmented Neutrophils % 85.4 %
[2017-03-23 05:40] LABS: Magnesium 2.3 mg/dL (1.6-2.6); Potassium 4.5 mEq/L (3.5-5.1)
[2017-03-23] MEDS: Pantoprazole 40 MG VIAL IVP SCH (07:45)
[2017-03-23] MEDS: Chlorhexidine Rinse 15 ML MOUTHWASH MM SCH ×2 (07:46→20:17)
[2017-03-23] MEDS: Valproic Acid INJ 250 MG in 0.9 % Sodium Chloride 100 ML IVPB SCH ×2 (07:51→20:18)
[2017-03-23] MEDS: Insulin DETEMIR 100 UNIT/ML X5UNITS SQ SCH (07:52)
[2017-03-23] MEDS: Leptospermum Honey Gel 44 ML TUBE TP SCH ×2 (07:54→22:03)
[2017-03-23] MEDS: Miconazole w/zinc oxide&karaya 92 APPL/92 GM TUBE TP SCH ×2 (07:55→22:07)
[2017-03-23] MEDS: *HR* Amiodarone 200 MG TABLET PO SCH (08:01)
--- NOTE | 2017-03-23 10:29 | Nephrology Progress Note ---
Date of Encounter: 03/23/17 Time of Encounter: 10:29 Subjective Principal diagnosis: PEA Arrest Interval history: Nephrology Note Next HD is planned for Saturday. I will be available this weekend, so please feel free to call and/or page me with any questions. Thank you. Objective - Vital Signs Vital signs: Vital Signs Temp Pulse Resp BP Pulse Ox 03/23/17 09:04 24 86/34 99 03/23/17 09:02 101 28 86/34 99 03/23/17 08:44 100.1 F H 03/23/17 08:27 102 26 106/44 99 03/23/17 07:26 21 131/59 96 03/23/17 06:12 18 131/59 91 03/23/17 06:00 107 21 131/59 96 03/23/17 05:00 109 18 124/56 98 03/23/17 04:23 109 19 135/64 97 03/23/17 03:36 100.2 F H 03/23/17 03:30 22 98 03/23/17 03:00 116 24 131/67 100 03/23/17 02:00 120 25 135/56 100 03/23/17 01:24 31 95/68 100 03/23/17 01:00 109 25 95/68 100 03/23/17 00:06 104 03/23/17 00:00 99.4 F 03/22/17 23:22 27 134/35 100 03/22/17 23:00 104 20 134/35 100 03/22/17 22:00 98 15 123/69 100 03/22/17 21:27 26 97 03/22/17 21:00 105 18 129/46 100 03/22/17 20:00 100 19 127/74 100 03/22/17 19:59 96 03/22/17 19:44 30 100 03/22/17 19:40 97.9 F 03/22/17 19:00 97.9 F 83 17 120/53 100 03/22/17 18:30 97.7 F 18 121/53 03/22/17 18:20 119/72 03/22/17 18:05 99/51 03/22/17 18:00 78 19 100/58 98 03/22/17 17:50 97/48 03/22/17 17:35 110/50 03/22/17 17:20 125/58 03/22/17 17:05 18 90/45 98 03/22/17 17:00 79 19 97/47 97 03/22/17 16:50 103/49 03/22/17 16:35 122/74 03/22/17 16:20 102/39 03/22/17 16:05 100/41 03/22/17 16:00 97.7 F 83 18 102/49 97 03/22/17 15:50 87/51 03/22/17 15:48 18 100 03/22/17 15:35 109/59 03/22/17 15:20 94/50 03/22/17 15:05 111/58 03/22/17 15:00 78 18 104/47 98 03/22/17 14:50 97.7 F 18 108/47 03/22/17 14:00 86 18 126/61 99 03/22/17 13:53 18 125/57 99 03/22/17 13:00 89 20 126/68 99 03/22/17 11:50 96 22 124/64 100 03/22/17 11:47 98 03/22/17 11:06 23 124/64 98 03/22/17 10:40 97 21 118/63 100 Intake and Output 03/22/17 03/23/17 03/23/17 23:59 07:59 15:59 Intake Total 567.5 / 567.5 492 / 492 327 / 327 Output Total 610 / 610 300 / 300 0 / 0 Balance -42.5 / -42.5 192 / 192 327 / 327 Intake: IV Fluids 202.5 / 202.5 50 / 50 PRECEDEX Premix 200 mcg In 50 100 / 100 50 / 50 ml @ 0.2 MCG/KG/HR 4.468 mls/hr IVC .[id number] [facility] Rx#: [id number] Depacon 250 MG In 0.9 % Sodium 102.5 / 102.5 Chloride 100 ML @ 100 mls/hr IVPB BID PRINCE Rx#:[id number] Tube Feeding 365 / 365 442 / 442 207 / 207 Free Water 60 / 60 Free Water Intake Amount 60 / 60 Output: Urine 0 / 0 Total Dialysis (HD) Output 607 / 607 Rectal Tube 0 / 0 300 / 300 0 / 0 Urostomy 3 / 3 Catheter 0 / 0 0 / 0 Other: Stool Size Large Stool Consistency loose liquid Stool Color Brown Brown Weight 78.4 kg Blood Glucose* 272 118 332 Hemodialysis Net Fluid Removed 0 (mL) Patient Weight 03/23/17 23:59 Weight 78.4 kg - Lab 03/23/17 05:16 03/23/17 05:16 Most recent lab results ABG pH 7.45 pH Units (7.32-7.45) 03/22/17 04:19 ABG pCO2 43 mmHg (35-45) 03/22/17 04:19 ABG pO2 73 mmHg (85-104) L 03/22/17 04:19 ABG HCO3 29 mEq/L (21-27) H 03/22/17 04:19 ABG O2 Saturation 95 % (95-98) 03/22/17 04:19 Calcium 10.0 mg/dL (8.6-10.3) 03/23/17 05:16 Phosphorus 5.1 mg/dL (2.7-4.5) H 03/22/17 03:35 Magnesium 2.3 mg/dL (1.6-2.6) 03/23/17 05:16 - VTE Documentation of Mechanical Device: Intermittent pneumatic compression device Consult Discharge Plan - Plan Referrals: NONE,PCP [Primary Care Provider] -
--- NOTE | 2017-03-23 12:44 | Pulmonology Progress Note ---
Date of Encounter: 03/23/17 Time of Encounter: 12:42 Assessment and Plan (1) Acute respiratory failure Current Visit: No Status: Acute Patient seen and examined at bedside Labs, radiology, chart personally reviewed. Management was reviewed during multidisciplinary critical care rounds. Has acute on chronic respiratory failure his trach dependent at baseline after an intracerebral hemorrhage. Stable vent settings. He will eat undergo long- term vent weaning strategy Qualifiers: Respiratory failure complication: hypoxia Qualified Code(s): J96.01 - Acute respiratory failure with hypoxia (2) ESRD (end stage renal disease) on dialysis Current Visit: No Status: Chronic Nephrology following plan for dialysis today treatment of chronic anemia will also be evaluated (3) Altered mental state Current Visit: Yes Status: Acute He continues to intermittently follow commands although per reports this is nearing baseline. Continue Seroquel for agitation Qualifiers: Altered mental status type: coma Coma depth: [place] coma 3-8 Coma timing : in the field (EMT or ambulance) Qualified Code(s): R40.2431 - [place] coma scale score 3-8, in the field [EMT or ambulance] (4) Ischemic stroke of frontal lobe Current Visit: No Status: Acute This is historical (5) Pneumonia Current Visit: Yes Status: Acute MDRO Pseudomonas pneumonia being treated with antimicrobials including tobramycin and cefepime which the organisms are sensitive to white count trending down I will stop meropenem as the resistance pattern is positive for this antimicrobial also no clear indication for vancomycin and that has been stopped Qualifiers: Pneumonia type: due to Pseudomonas Laterality: bilateral Lung location: unspecified part of lung Qualified Code(s): J15.1 - Pneumonia due to Pseudomonas (6) History of seizure disorder Current Visit: Yes Status: Acute Continue dilantin and valproate (7) Hypertension Current Visit: Yes Status: Acute stable cont beta eloisa Qualifiers: Hypertension type: unspecified Qualified Code(s): I10 - Essential (primary ) hypertension (8) DVT prophylaxis Current Visit: Yes Status: Acute Continue routine DVT prophylaxis Subjective Principal diagnosis: PEA Arrest Interval history: Mental status is about the same intermittently able to follow commands but definitely confused at times per report this is approximating his baseline. He did used to have periods of agitation but has nearly been weaned off the Precedex he seems to responding to titration of Seroquel. Cultures came back positive for multidrug resistant Pseudomonas which is actually more resistant than previous culture. Objective PUL Vital signs: Last Vital Signs Temp 100.1 F H 03/23/17 08:44 Pulse 101 03/23/17 11:26 Resp 23 03/23/17 11:26 BP 137/42 03/23/17 11:26 Pulse Ox 99 03/23/17 11:26 General appearance: no acute distress Eyes: nonicteric Auscultation: bilateral: rales, rhonchi Cardiovascular: regular rate and rhythm Gastrointestinal: normoactive bowel sounds Extremities: edema (Trace lower extremity edema) pupils equal and round, other (Chronic left-sided plegia noted) Ventilator Settings Ventilator Settings: Ventilator Settings, Last 8 Hours Ventilator Mode A/C Ventilator Mode A/C Ventilator Mode A/C Ventilator Mode A/C Ventilator Mode A/C Ventilator Mode A/C Ventilator Mode A/C Ventilator Mode A/C Ventilator Mode A/C Ventilator Tidal Volume 500 Setting Ventilator Tidal Volume 500 Setting Ventilator Tidal Volume 500 Setting Ventilator Tidal Volume 500 Setting Ventilator Tidal Volume 500 Setting Ventilator Tidal Volume 500 Setting Ventilator Tidal Volume 500 Setting Ventilator Tidal Volume 500 Setting Ventilator Tidal Volume 500 Setting Ventilator Respiratory Rate 18 Setting Ventilator Respiratory Rate 18 Setting Ventilator Respiratory Rate 18 Setting Ventilator Respiratory Rate 18 Setting Ventilator Respiratory Rate 18 Setting Ventilator Respiratory Rate 18 Setting Ventilator Respiratory Rate 18 Setting Ventilator Respiratory Rate 18 Setting Ventilator Respiratory Rate 18 Setting Actual Respiratory Rate 23 Actual Respiratory Rate 29 Actual Respiratory Rate 24 Actual Respiratory Rate 27 Actual Respiratory Rate 23 Actual Respiratory Rate 21 Actual Respiratory Rate 18 Actual Respiratory Rate 21 Actual Respiratory Rate 18 Positive End Expiratory 5 Pressure Positive End Expiratory 5 Pressure Positive End Expiratory 5 Pressure Positive End Expiratory 5 Pressure Positive End Expiratory 5 Pressure Positive End Expiratory 5 Pressure Positive End Expiratory 5 Pressure Positive End Expiratory 5 Pressure Positive End Expiratory 5 Pressure Peak Inspiratory Airway 34 Pressure Peak Inspiratory Airway 21 Pressure Peak Inspiratory Airway 21 Pressure Peak Inspiratory Airway 21 Pressure Peak Inspiratory Airway 21 Pressure Peak Inspiratory Airway 21 Pressure Peak Inspiratory Airway 22 Pressure Peak Inspiratory Airway 20 Pressure Peak Inspiratory Airway 21 Pressure Results - Laboratory Findings CBC and BMP: 03/23/17 05:16 03/23/17 05:16 ABG ABG pH 7.45 pH Units (7.32-7.45) 03/22/17 04:19 ABG pCO2 43 mmHg (35-45) 03/22/17 04:19 ABG pO2 73 mmHg (85-104) L 03/22/17 04:19 ABG O2 Saturation 95 % (95-98) 03/22/17 04:19 PT/INR, D-dimer PT 12.5 Seconds (9.4-12.1) H 03/13/17 13:43 Abnormal lab findings: Abnormal lab results WBC 21.6 K/mcL (4.3-11.1) H 03/23/17 05:16 RBC 2.72 M/mcL (4.19-5.50) L 03/23/17 05:16 Hgb 8.4 g/dL (12.9-16.9) L 03/23/17 05:16 Hct 26.0 % (37.5-50.1) L 03/23/17 05:16 RDW 16.6 % (11.5-14.5) H 03/23/17 05:16 Neutrophils # 18.4 K/mcL (1.6-8.9) H 03/23/17 05:16 Monocytes # 1.9 K/mcL (0.0-1.3) H 03/23/17 05:16 Nucleated RBCs/100 WBC 0.1 /100 WBC (0) H 03/21/17 03:45 Large Platelets Present (Not Present) A 03/21/17 03:45 Polychromasia 1+ (Not Present) A 03/21/17 03:45 Anisocytosis 1+ (Not Present) A 03/21/17 03:45 Macrocytosis Present (Not Present) A 03/21/17 03:45 PT 12.5 Seconds (9.4-12.1) H 03/13/17 13:43 APTT 36.4 Seconds (26.0-36.0) H 03/13/17 13:43 ABG pO2 73 mmHg (85-104) L 03/22/17 04:19 ABG HCO3 29 mEq/L (21-27) H 03/22/17 04:19 ABG Total CO2 31 mEq/L (20-26) H 03/22/17 04:19 ABG Base Excess 5 mEq/L (-2 to 3) H 03/22/17 04:19 BUN 96 mg/dL (8-23) H 03/23/17 05:16 Creatinine 5.79 mg/dL (0.70-1.30) H 03/23/17 05:16 Est GFR ( Amer) 12 (> 60) L 03/23/17 05:16 Est GFR (Non-Af Amer) 10 (> 60) L 03/23/17 05:16 Glucose 185 mg/dL (70-105) H 03/23/17 05:16 POC Glucose 263 (58-89) H 03/23/17 00:00 Calculated Osmolality 325 (280-300) H 03/23/17 05:16 Phosphorus 5.1 mg/dL (2.7-4.5) H 03/22/17 03:35 Iron 58 mcg/dL (65-175) L 03/18/17 11:18 Transferrin 125 mg/dL (203-362) L 03/18/17 11:18 Alkaline Phosphatase 331 Units/L (34-104) H 03/13/17 13:43 Troponin I 0.07 ng/mL (< 0.04) H* 03/16/17 21:10 B-Natriuretic Peptide 2742 pg/mL (Less than 100) H 03/13/17 22:40 Albumin 3.3 g/dL (3.5-5.7) L 03/13/17 13:43 Globulin 3.7 g/dL (2.4-3.5) H 03/13/17 13:43 Albumin/Globulin Ratio 0.9 (1.1-2.2) L 03/13/17 13:43 25-OH Vitamin D Total 24 ng/mL (30-80) L 03/18/17 11:18 Folate 43.0 ng/mL (3.0-16.0) H 03/18/17 11:18 PTH Intact 395.7 pg/ml (10.0-65.0) H 03/18/17 11:18 Digoxin 0.5 ng/mL (0.8-2.0) L 03/13/17 13:43 Phenytoin 4.3 mcg/mL (10.0-20.0) L 03/15/17 04:12 Free Phenytoin 0.8 ug/mL (1.0-2.5) L 03/15/17 04:12 Total Phenytoin 5.2 ug/mL (10.0-20.0) L 03/15/17 04:12 Percent Free Phenytoin 15.4 % (8.0-14.0) H 03/15/17 04:12 Valproic Acid 14 mcg/mL (50-100) L 03/13/17 13:43 - Microbiology Findings Microbiology Findings: Microbiology, Last 48 Hours 03/21/17 11:30 Sputum Culture - Final Sputum P. aeruginosa MDRO 03/21/17 10:37 Blood Culture - Preliminary Peripheral Venipuncture No growth. 03/21/17 10:37 Blood Culture - Preliminary Peripheral Venipuncture No growth. - Clinical Findings Intake & Output: Intake & Output 03/22/17 03/23/17 03/23/17 23:59 07:59 15:59 Intake Total 567.5 / 567.5 492 / 492 387 / 387 Output Total 610 / 610 300 / 300 0 / 0 Balance -42.5 / -42.5 192 / 192 387 / 387 Weight 78.4 kg - VTE Documentation of Mechanical Device: Intermittent pneumatic compression device Consult Discharge Plan - Plan Referrals: NONE,PCP [Primary Care Provider] -
[2017-03-23] MEDS ORDERED: *HR* Metoprolol 5 MG/5 ML VIAL IVP ONE ×2 (14:02→14:04)
[2017-03-23] MEDS: *HR* FentaNYL (PF) 100 MCG/2 ML VIAL IVP PRN (15:27)
[2017-03-23] MEDS ORDERED: Amiodarone Premix 360 MG/200 ML BAG IVC ONE ×2 (17:13→17:18)
[2017-03-23] MEDS: FentaNYL (PF) 1,000 MCG in 0.9 % Sodium Chloride 80 ML IVC SCH (19:20)
[2017-03-23] MEDS ORDERED: *HR* Digoxin 0.5 MG/2 ML AMPUL IVP ONE (19:29)
[2017-03-23 19:36] LABS: ABG Base Excess 3 mEq/L (-2 to 3); ABG HCO3 27 mEq/L (21-27); ABG Oxygen Saturation 90 % (95-98); ABG PCO2 39 mmHg (35-45); ABG PH 7.45 pH Units (7.32-7.45); ABG PO2 57 mmHg (85-104); ABG TCO2 28 mEq/L (20-26); Blood Gas Modality ASSIST CONTROL; Blood Gas PEEP 5 cm H2O; Blood Gas Respiration Rate 18; Blood Gas VT 500 cc
[2017-03-23] MEDS ORDERED: Ondansetron 4 MG/2 ML VIAL ONE (19:42)
[2017-03-23] MEDS ORDERED: Ondansetron 4 MG/2 ML VIAL IVP ONE (19:43)
[2017-03-23] MEDS: Amiodarone Premix 360 MG/200 ML BAG IVC SCH (22:51)
[2017-03-24] MEDS: Insulin LISPRO 300 UNITS/3 ML VIAL SQ SCH ×6 (00:13→20:08)
[2017-03-24] MEDS: Dexmedetomidine HCl 200 MCG/50 ML MLS IVC SCH ×2 (01:16→06:34)
[2017-03-24] MEDS: Ipratropium/Albuterol Neb 3 ML IH SCH ×6 (04:04→23:28)
[2017-03-24 04:47] LABS: Segmented Neutrophils % 80.6 %
[2017-03-24 04:48] LABS: Basophils # 0.1 K/mcL (0.0-0.2); Basophils % 0.5 %; Eosinophils # 0.2 K/mcL (0.0-0.6); Eosinophils % 0.6 %; Hematocrit 25.3 % (37.5-50.1); Immature Granulocytes % 0.9 % (0-4); Lymphocytes # 1.8 K/mcL (0.6-4.6); Lymphocytes % 6.6 %; Mean Corpuscular HGB Conc 31.6 g/dL (31.6-35.5); Mean Corpuscular Hemoglobin 30.5 pg (28.0-33.3); Mean Corpuscular Volume 96.6 fL (83.0-100.0); Mean Platelet Volume 12.3 fL (9.4-12.4); Monocytes # 2.9 K/mcL (0.0-1.3); Monocytes % 10.8 %; Neutrophils # 21.4 K/mcL (1.6-8.9); Platelet Count 385 K/mcL (140-400); Red Blood Count 2.62 M/mcL (4.19-5.50); Red Cell Distribution Width 16.5 % (11.5-14.5)
[2017-03-24] MEDS: *HR* Heparin 5,000 UNIT/ML VIAL SQ SCH ×3 (05:11→20:06)
[2017-03-24 05:20] LABS: Calcium 9.7 mg/dL (8.6-10.3); Magnesium 2.2 mg/dL (1.6-2.6); Potassium 5.5 mEq/L (3.5-5.1)
[2017-03-24 05:33] LABS: Anisocytosis 1+ (Not Present); Platelet Estimate Normal (Normal)
[2017-03-24 08:50] LABS: Bilirubin,Urine Negative (Negative); Blood,Urine Moderate (Negative); Clarity,Urine Turbid (Clear); Color,Urine Red (Yellow); Glucose,Urine (UA) Normal (Normal); Ketones,Urine Negative (Negative); Leukocyte Esterase,Urine Large (Negative); Nitrite,Urine Negative (Negative); Protein,Urine >=300 mg/dL (Neg-Trace); Specific Gravity,Urine 1.012 (1.010-1.025); Urobilinogen,Urine Normal (Normal)
[2017-03-24 08:53] LABS: Bacteria,Urine None Seen per hpf (None-Few); Squamous Epithelial Cell,Urine Many per lpf (None-Few); WBC,Urine TNTC per hpf (0-3)
[2017-03-24 09:01] LABS: RBC,Urine 50-100 per hpf (0-3)
[2017-03-24] MEDS: Amiodarone Premix 360 MG/200 ML BAG IVC SCH (10:01)
[2017-03-24] MEDS: Chlorhexidine Rinse 15 ML MOUTHWASH MM SCH ×2 (10:01→20:06)
[2017-03-24] MEDS: Pantoprazole 40 MG VIAL IVP SCH (10:01)
[2017-03-24] MEDS: Leptospermum Honey Gel 44 ML TUBE TP SCH ×2 (10:03→20:07)
[2017-03-24] MEDS: Miconazole w/zinc oxide&karaya 92 APPL/92 GM TUBE TP SCH ×2 (10:04→20:08)
[2017-03-24] MEDS: Valproic Acid INJ 250 MG in 0.9 % Sodium Chloride 100 ML IVPB SCH ×2 (10:08→20:26)
[2017-03-24] MEDS: Albumin 25% 25gram/100mL 25 GM/100 ML IV.SOLN IVC SCH ×2 (10:09→11:31)
[2017-03-24] MEDS: Insulin DETEMIR 100 UNIT/ML X5UNITS SQ SCH (10:18)
--- NOTE | 2017-03-24 14:56 | Pulmonology Progress Note ---
Date of Encounter: 03/24/17 Time of Encounter: 14:54 Assessment and Plan (1) Acute respiratory failure Current Visit: No Status: Acute Patient seen and examined at bedside Labs, radiology, chart personally reviewed. Management was reviewed during multidisciplinary critical care rounds. Has acute on chronic respiratory failure his trach dependent at baseline after an intracerebral hemorrhage. Stable vent settings. He will eat undergo long- term vent weaning strategy Increased suctioning likely related to underlying pneumonia Qualifiers: Respiratory failure complication: hypoxia Qualified Code(s): J96.01 - Acute respiratory failure with hypoxia (2) Atrial fibrillation with RVR Current Visit: Yes Status: Acute Continue amiodarone infusion is also on a beta eloisa rate controlled at present (3) ESRD (end stage renal disease) on dialysis Current Visit: No Status: Chronic Nephrology following mild hyperkalemia today dialysis per schedule (4) Altered mental state Current Visit: Yes Status: Acute He continues to intermittently follow commands which is nearing baseline. Continue Seroquel for agitation and Precedex as needed Qualifiers: Altered mental status type: coma Coma depth: [place] coma 3-8 Coma timing : in the field (EMT or ambulance) Qualified Code(s): R40.2431 - [place] coma scale score 3-8, in the field [EMT or ambulance] (5) Ischemic stroke of frontal lobe Current Visit: No Status: Acute This is historical (6) Pneumonia Current Visit: Yes Status: Acute MDRO Pseudomonas pneumonia being treated with antimicrobials including tobramycin and cefepime which the organisms are sensitive to white count trending down I will stop meropenem as the resistance pattern is positive for this antimicrobial Despite adjustment of antimicrobials with initial improvement white count is trending up now no no clear source of infection after extensive culturing Will need infectious disease consult and we will consider adding inhaled tobramycin in the next 24 hours with no improvement Clinically otherwise hemodynamically stable and lactate within normal limits Qualifiers: Pneumonia type: due to Pseudomonas Laterality: bilateral Lung location: unspecified part of lung Qualified Code(s): J15.1 - Pneumonia due to Pseudomonas (7) History of seizure disorder Current Visit: Yes Status: Acute Continue dilantin and valproate (8) Hypertension Current Visit: Yes Status: Acute stable cont beta eloisa Qualifiers: Hypertension type: unspecified Qualified Code(s): I10 - Essential (primary ) hypertension (9) DVT prophylaxis Current Visit: Yes Status: Acute Continue routine DVT prophylaxis Subjective Principal diagnosis: PEA Arrest Interval history: Went into A. fib with RVR late yesterday afternoon and has been started on amiodarone infusion with overall improvement. Worsening oxygenation at that time too and agitation for which he was sedated now he is off sedation and appears to be back to baseline mental status and oxygen saturation. White count continues to trend up and had a slight fever overnight Objective PUL Vital signs: Last Vital Signs Temp 98.8 F 03/24/17 11:00 Pulse 101 03/24/17 14:00 Resp 24 03/24/17 14:00 BP 141/50 03/24/17 14:00 Pulse Ox 98 03/24/17 14:00 General appearance: other (Comfortable appearing) Eyes: nonicteric ENT: oropharynx moist Effort: normal Auscultation: bilateral: diminished breath sounds Cardiovascular: regular rate and rhythm Gastrointestinal: normoactive bowel sounds, soft, non-tender Extremities: no edema pupils equal and round, other (Left hemiplegia) Ventilator Settings Ventilator Settings: Ventilator Settings, Last 8 Hours Ventilator Mode A/C Ventilator Mode A/C Ventilator Mode A/C Ventilator Mode A/C Ventilator Tidal Volume 500 Setting Ventilator Tidal Volume 500 Setting Ventilator Tidal Volume 500 Setting Ventilator Tidal Volume 500 Setting Ventilator Respiratory Rate 18 Setting Ventilator Respiratory Rate 18 Setting Ventilator Respiratory Rate 18 Setting Ventilator Respiratory Rate 18 Setting Actual Respiratory Rate 19 Actual Respiratory Rate 19 Actual Respiratory Rate 18 Actual Respiratory Rate 18 Positive End Expiratory 5 Pressure Positive End Expiratory 5 Pressure Positive End Expiratory 5 Pressure Positive End Expiratory 5 Pressure Peak Inspiratory Airway 23 Pressure Peak Inspiratory Airway 23 Pressure Peak Inspiratory Airway 24 Pressure Peak Inspiratory Airway 29 Pressure Results - Laboratory Findings CBC and BMP: 03/24/17 04:32 03/24/17 04:32 ABG ABG pH 7.45 pH Units (7.32-7.45) 03/23/17 19:33 ABG pCO2 39 mmHg (35-45) 03/23/17 19:33 ABG pO2 57 mmHg (85-104) L 03/23/17 19:33 ABG O2 Saturation 90 % (95-98) L 03/23/17 19:33 PT/INR, D-dimer PT 12.5 Seconds (9.4-12.1) H 03/13/17 13:43 Abnormal lab findings: Abnormal lab results WBC 26.6 K/mcL (4.3-11.1) H 03/24/17 04:32 RBC 2.62 M/mcL (4.19-5.50) L 03/24/17 04:32 Hgb 8.0 g/dL (12.9-16.9) L 03/24/17 04:32 Hct 25.3 % (37.5-50.1) L 03/24/17 04:32 RDW 16.5 % (11.5-14.5) H 03/24/17 04:32 Neutrophils # 21.4 K/mcL (1.6-8.9) H 03/24/17 04:32 Monocytes # 2.9 K/mcL (0.0-1.3) H 03/24/17 04:32 Nucleated RBCs/100 WBC 0.1 /100 WBC (0) H 03/21/17 03:45 Large Platelets Present (Not Present) A 03/21/17 03:45 Polychromasia 1+ (Not Present) A 03/21/17 03:45 Anisocytosis 1+ (Not Present) A 03/24/17 04:32 Macrocytosis Present (Not Present) A 03/21/17 03:45 PT 12.5 Seconds (9.4-12.1) H 03/13/17 13:43 APTT 36.4 Seconds (26.0-36.0) H 03/13/17 13:43 ABG pO2 57 mmHg (85-104) L 03/23/17 19:33 ABG Total CO2 28 mEq/L (20-26) H 03/23/17 19:33 ABG O2 Saturation 90 % (95-98) L 03/23/17 19:33 Potassium 5.5 mEq/L (3.5-5.1) H 03/24/17 04:32 BUN 122 mg/dL (8-23) H 03/24/17 04:32 Creatinine 6.95 mg/dL (0.70-1.30) H 03/24/17 04:32 Est GFR ( Amer) 10 (> 60) L 03/24/17 04:32 Est GFR (Non-Af Amer) 8 (> 60) L 03/24/17 04:32 Glucose 197 mg/dL (70-105) H 03/24/17 04:32 POC Glucose 108 (58-89) H 03/23/17 23:42 Calculated Osmolality 333 (280-300) H 03/24/17 04:32 Phosphorus 5.1 mg/dL (2.7-4.5) H 03/22/17 03:35 Iron 58 mcg/dL (65-175) L 03/18/17 11:18 Transferrin 125 mg/dL (203-362) L 03/18/17 11:18 Alkaline Phosphatase 331 Units/L (34-104) H 03/13/17 13:43 Troponin I 0.07 ng/mL (< 0.04) H* 03/16/17 21:10 B-Natriuretic Peptide 2742 pg/mL (Less than 100) H 03/13/17 22:40 Albumin 3.3 g/dL (3.5-5.7) L 03/13/17 13:43 Globulin 3.7 g/dL (2.4-3.5) H 03/13/17 13:43 Albumin/Globulin Ratio 0.9 (1.1-2.2) L 03/13/17 13:43 25-OH Vitamin D Total 24 ng/mL (30-80) L 03/18/17 11:18 Folate 43.0 ng/mL (3.0-16.0) H 03/18/17 11:18 PTH Intact 395.7 pg/ml (10.0-65.0) H 03/18/17 11:18 Urine Color Red (Yellow) A 03/24/17 08:37 Urine Clarity Turbid (Clear) A 03/24/17 08:37 Urine Protein >=300 mg/dL (Neg-Trace) H 03/24/17 08:37 Urine Blood Moderate (Negative) H 03/24/17 08:37 Ur Leukocyte Esterase Large (Negative) H 03/24/17 08:37 Urine Microscopic RBC 50-100 per hpf (0-3) H 03/24/17 08:37 Urine Microscopic WBC TNTC per hpf (0-3) H 03/24/17 08:37 Ur Squamous Epith Cells Many per lpf (None-Few) H 03/24/17 08:37 Digoxin 0.5 ng/mL (0.8-2.0) L 03/13/17 13:43 Phenytoin 4.3 mcg/mL (10.0-20.0) L 03/15/17 04:12 Free Phenytoin 0.8 ug/mL (1.0-2.5) L 03/15/17 04:12 Total Phenytoin 5.2 ug/mL (10.0-20.0) L 03/15/17 04:12 Percent Free Phenytoin 15.4 % (8.0-14.0) H 03/15/17 04:12 Valproic Acid 14 mcg/mL (50-100) L 03/13/17 13:43 - Microbiology Findings Microbiology Findings: Microbiology, Last 48 Hours 03/18/17 13:20 Blood Culture - Final Peripheral Venipuncture No growth. 03/18/17 13:20 Blood Culture - Final Peripheral Venipuncture No growth. 03/21/17 11:30 Sputum Culture - Final Sputum P. aeruginosa MDRO 03/21/17 10:37 Blood Culture - Preliminary Peripheral Venipuncture No growth. 03/21/17 10:37 Blood Culture - Preliminary Peripheral Venipuncture No growth. - Clinical Findings Intake & Output: Intake & Output 03/23/17 03/24/17 03/24/17 23:59 07:59 15:59 Intake Total 352.5 / 352.5 821.5 / 821.5 Output Total 100 / 100 0 / 0 Balance 252.5 / 252.5 811.5 / 811.5 Weight 82.2 kg - VTE Documentation of Mechanical Device: Intermittent pneumatic compression device Consult Discharge Plan - Plan Referrals: NONE,PCP [Primary Care Provider] -
[2017-03-25] MEDS: Amiodarone Premix 360 MG/200 ML BAG IVC SCH (00:03)
[2017-03-25] MEDS: Insulin LISPRO 300 UNITS/3 ML VIAL SQ SCH ×6 (00:04→21:39)
[2017-03-25] MEDS: Ipratropium/Albuterol Neb 3 ML IH SCH ×6 (03:23→23:34)
[2017-03-25] MEDS: *HR* Heparin 5,000 UNIT/ML VIAL SQ SCH ×3 (04:42→21:37)
[2017-03-25 04:55] LABS: Basophils # 0.1 K/mcL (0.0-0.2); Basophils % 0.3 %; Eosinophils # 0.4 K/mcL (0.0-0.6); Eosinophils % 1.6 %; Hemoglobin 7.1 g/dL (12.9-16.9); Immature Granulocytes % 0.8 % (0-4); Lymphocytes # 1.7 K/mcL (0.6-4.6); Lymphocytes % 7.5 %; Mean Corpuscular HGB Conc 32.3 g/dL (31.6-35.5); Mean Corpuscular Hemoglobin 30.7 pg (28.0-33.3); Mean Corpuscular Volume 95.2 fL (83.0-100.0); Mean Platelet Volume 12.5 fL (9.4-12.4); Neutrophils # 18.2 K/mcL (1.6-8.9); Platelet Count 371 K/mcL (140-400); Red Blood Count 2.31 M/mcL (4.19-5.50); Red Cell Distribution Width 16.2 % (11.5-14.5); Segmented Neutrophils % 80.8 %
[2017-03-25 05:21] LABS: Blood Urea Nitrogen > 130 mg/dL (8-23); Calcium 10.3 mg/dL (8.6-10.3); Carbon Dioxide 21 mEq/L (23-29); Chloride 97 mEq/L (98-107); Glucose 178 mg/dL (70-105); Magnesium 2.3 mg/dL (1.6-2.6); Potassium 4.6 mEq/L (3.5-5.1); Sodium 139 mEq/L (136-145); eGFR For African Americans 8 (> 60); eGFR For Non-African Americans 7 (> 60)
[2017-03-25] MEDS ORDERED: 0.9 % Sodium Chloride 250 ML IVC PRN (06:42)
[2017-03-25] MEDS: FentaNYL (PF) 1,000 MCG in 0.9 % Sodium Chloride 80 ML IVC SCH (08:00)
[2017-03-25] MEDS: Chlorhexidine Rinse 15 ML MOUTHWASH MM SCH ×2 (08:06→21:37)
[2017-03-25] MEDS: Pantoprazole 40 MG VIAL IVP SCH (08:06)
[2017-03-25] MEDS ORDERED: 0.9 % Sodium Chloride 1,000 ML ONE (08:19)
[2017-03-25] MEDS: Insulin DETEMIR 100 UNIT/ML X5UNITS SQ SCH (08:28)
[2017-03-25] MEDS ORDERED: *HR* Amiodarone 200 MG TABLET PO SCH (09:00)
[2017-03-25 09:19] LABS: ABG Base Excess -2 mEq/L (-2 to 3); ABG HCO3 21 mEq/L (21-27); ABG Oxygen Saturation 95 % (95-98); ABG PCO2 30 mmHg (35-45); ABG PH 7.47 pH Units (7.32-7.45); ABG PO2 71 mmHg (85-104); ABG TCO2 22 mEq/L (20-26); Blood Gas Modality ASSIST CONTROL; Blood Gas PEEP 5 cm H2O; Blood Gas Respiration Rate 18; Blood Gas VT 500 cc
--- NOTE | 2017-03-25 10:00 | Infectious Disease Consult ---
Date of Encounter: 03/25/17 Time of Encounter: 09:50 Assessment and Plan (1) Severe sepsis Status: Acute Assessment and plan: Patient positive with 4 SIRS criteria: Leukocytosis, febrile, tachycardic, tachypneic Possible sources include pneumonia, tracheobronchitis, UTI, intra-abdominal process Patient presented in PEA arrest suspect due to hypoxia 03/13 - Chest CT showed multifocal pneumonia versus edema, though significant bilateral pleural effusions appear Echocardiogram showed EF 45% (stable) Head CT showed no acute abnormalities Blood cultures 2 showed no growth CXR showed diffuse multifocal airspace and interstitial opacities bilaterally , pulmonary edema or multifocal pneumonia Patient given single dose Zosyn and Levaquin Patient started on vancomycin for 3 day course Patient started on cefepime for 8 day course 03/14 - CXR showed stable exam with likely bilateral layering pleural effusions with superimposed airspace opacities which may relate to atelectasis, infiltrates, and/or pulmonary edema 03/15 - sputum culture shows MDRO P. aeruginosa sensitive to cefepime, Ceftazidime, Zosyn, tobramycin 03/18 - CXR shows improving diffuse pulmonary edema and bilateral pleural effusions Blood cultures 2 show no growth 03/21 - blood cultures 3 negative Sputum culture positive for MDRO P. aeruginosa sensitive to cefepime and tobramycin Patient restarted on vancomycin due to concerns of continued leukocytosis and fever Patient started on tobramycin Patient started on meropenem for 2 day course 03/22 - stool infectious PCR panel negative for any pathogens 03/23 - CXR shows pulmonary vascular congestion with increasing bilateral perihilar airspace opacities Patient does not appear to be improving despite appropriate antibiotic treatment for 2 weeks for MDRO pseudomonas, suggesting possible alternate source of infection/inflammation. We will evaluate for influenza as well as Legionella and strep antigens Patient was evaluated for C. difficile which was negative No obvious sinusitis or URI observed Patient chest CT suggests compressive atelectasis due to pleural effusion, not necessarily pneumonia Patient had removal of urinary bladder following bladder cancer in 2005 and now has nephrostomy tubes, will rule out UTI/pyelonephritis with UA and urine culture We will evaluate for intra-abdominal causes with CT examination, LFTs/CMP, amylase/lipase We will obtain Pro calcitonin Recommend restart vancomycin and Zosyn. If repeat blood cultures are negative in 48 hours we will discontinue vancomycin Repeat chest CT. If pleural effusions worsen consider thoracentesis with lab work to evaluate for possible infection (2) Acute and chronic respiratory failure Status: Chronic Assessment and plan: Patient has tracheostomy is on chronic mechanical ventilation Presenting with PEA arrest suspect is secondary to hypoxia given pleural effusion/pneumonia Plan per primary team ID plan as above Qualifiers: Respiratory failure complication: hypoxia Qualified Code(s): J96.21 - Acute and chronic respiratory failure with hypoxia (3) Tracheobronchitis Status: Acute Assessment and plan: Patient found to have MDRO P. aeruginosa in his sputum culture. Unclear whether radiographic findings are due to compressive atelectasis versus pneumonia If no pneumonia present could represent tracheobronchitis Plan as above (4) Pulmonary edema Status: Acute Assessment and plan: Plan as above Qualifiers: Chronicity: acute Qualified Code(s): J81.0 - Acute pulmonary edema (5) Cardiac arrest Status: Resolved Assessment and plan: Thought secondary to hypoxia Plan as above (6) Acute metabolic encephalopathy Status: Acute Assessment and plan: Metabolic encephalopathy improving from prior chart review Expect to continue improving as improvement in sepsis occurs (7) ESRD (end stage renal disease) on dialysis Status: Chronic Assessment and plan: We will monitor renal function daily Renally dose medications Continue plan per nephrology Infectious Disease HPI - Data of Consult Patient: new to practice Consult date: 03/25/17 Requesting Physician: Roney Irwin MD Primary Care Provider: PCP NONE - Consult Narrative Reason for consult: MDRO pseudomonas; pna History of present illness: Mr. 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 Return of spontaneous circulation was achieved after 2 rounds of CPR with 1 dose of epinephrine. An infectious disease consult was placed on due to the finding of MDRO pseudomonas on sputum culture. After successful resuscitation took place patient was hypothermic at 96.4, pulse 104, was on mechanical ventilation, and hypertensive at 201/92. Over the course of next several days patient had on and off fevers with tachycardia and tachypnea, although his initial white blood cell count 16.5 immediately dropped to 10.7 before starting to slowly escalate. Patient was seen by cardiology on .patient's cardiac arrest was due to hypoxia induced by patient pneumonia. He was also seen by neurology who felt his encephalopathy was toxic in nature, likely due to sepsis and possible but unlikely seizure. He was seen to have bilateral pleural effusions first pulmonary edema seen on CT examination performed on 03/13/17. Echocardiogram performed showed EF of 45% which is stable from prior echocardiogram performed one year ago. A head CT performed on 03/13 did not see any acute abnormalities. Patient had been started on Zosyn , vancomycin, and Levaquin at the time of admission but after 1 dose of Zosyn and Levaquin that were stopped and he was continued on vancomycin for an additional 2 days. Sputum culture was obtained on 03/15/17 that showed MDRO P. aeruginosa and he was started on cefepime and meropenem. After final results of culture and sensitivities were obtained his meropenem was changed to tobramycin. Patient had been encephalopathic for several days prior to original presentation , but after 3 days he began to wake and shake his head yes or now. Which progressed the following 8 and following simple commands. During this time he continued to have slow elevation of his white blood cell count as well as developing more frequent fevers. A repeat chest x-ray obtained on 03/18/17 showed improving diffuse pulmonary edema and bilateral pleural effusions. Patient was restarted on vancomycin on 03/21 due to concerns of continuing fever and leukocytosis. As of this morning patient had temperature of 100.8 with continued tachycardia, tachypnea, leukocytosis. He was unable to participate much with conversation/ discussion of how he was doing but showed some discomfort with palpation of his abdomen. CC: Roney Irwin MD Past Med Surg Social Fam HX - Past Medical History Medical history: cancer, CHF, coronary artery disease, diabetes, hypertension, myocardial infarction, renal disease Psychiatric history: no psych history - Past Surgical History Surgical History: cholecystectomy, vascular surgery - Social History Smoking Status: Never smoker Smokeless Tobacco Status: No Alcohol use: none Drug use: none Infectious Disease-CN:Meds Ergocalciferol (VITAMIN D2) [Vitamin D2] 50,000 unit GTUBE SA 03/18/16 [History] Insulin ASPART [Novolog Flexpen] 8 unit SQ Q4H 03/18/16 [History] Acetaminophen [Tylenol] 325 mg GTUBE Q6H PRN 03/13/17 [History] Amiodarone [Cordarone] 200 mg GTUBE DAILY 03/13/17 [History] Amlodipine Besylate 10 mg GTUBE DAILY 03/13/17 [History] Buspirone HCl [Buspar] 15 mg GTUBE BID 03/13/17 [History] Calcium Acetate [Phos-LO] 1,334 mg GTUBE TIDWM 03/13/17 [History] Carvedilol 37.5 mg PO BIDWM 03/13/17 [History] CloNIDine Patch [Catapres-TTS] 0.3 mg TD QWEEK 03/13/17 [History] Darbepoetin Barron in Polysorbat [Aranesp] 50 mcg SQ QWEEK 03/13/17 [History] Dextrose [Glucose] 33 gm PO ONCE PRN 03/13/17 [History] Digoxin [Lanoxin] 0.125 mg PO Q72H 03/13/17 [History] Diltiazem HCl [Cardizem] 60 mg GTUBE QID 03/13/17 [History] Epoetin Barron [Procrit] 10,000 unit SQ ONCE PRN 03/13/17 [History] Guaifenesin [Cough Syrup] 300 mg GTUBE BID 03/13/17 [History] Hydralazine HCl 125 mg GTUBE Q8H 03/13/17 [History] Insulin Glargine [Lantus] 25 unit SQ QAM 03/13/17 [History] Insulin Regular Human [HumuLIN R] 0 - 16 unit SQ Q6H 03/13/17 [History] Ipratropium/Albuterol Neb [Duoneb] 3 ml IH Q4H PRN 03/13/17 [History] Labetalol 10 mg IV Q1H PRN 03/13/17 [History] Lansoprazole susp *PEDS* [Prevacid susp] 30 mg GTUBE DAILY 03/13/17 [History] Levothyroxine [Synthroid] 75 mcg GTUBE QAM 03/13/17 [History] Lidocaine Patch [Lidoderm 5% patch] 1 each TP DAILY 03/13/17 [History] Metoprolol Tartrate 10 mg IV Q6H 03/13/17 [History] Nitroglycerin [Nitrostat] 0.4 mg SL Q5M PRN 03/13/17 [History] Ondansetron HCl [Zofran] 4 mg PO Q6H PRN 03/13/17 [History] Phenytoin [Dilantin] 100 mg GTUBE BID 03/13/17 [History] Qexydgvdxzhh-Jgkw-Zggmjchx,Iso [Zosyn 2.25 gm/50 ml Galaxy Bag] 2.25 gm IV Q6H 03/13/17 [History] Polyethylene Glycol 3350 [MiraLAX] 17 gm PO DAILY 03/13/17 [History] Quetiapine Fumarate [SEROquel] 12.5 mg GTUBE DAILY 03/13/17 [History] Quetiapine Fumarate [Seroquel] 50 mg GTUBE HS 03/13/17 [History] Renal Vitamin [Renal Caps Softgel] 1 mg GTUBE DAILY 03/13/17 [History] Sacubitril/Valsartan [Entresto 97 mg-103 mg Tablet] 1 each GTUBE BID 03/13/17 [ History] Valproic Acid Oral Soln [Depakene Oral Soln] 250 mg GTUBE BID 03/13/17 [History] clonazePAM [Klonopin] 0.25 mg GTUBE BID PRN 03/13/17 [History] 3 Allergy/AdvReac Type Severity Reaction Status Date / Time Sulfa (Sulfonamide Allergy Severe Anaphylaxis Verified 03/21/16 07:20 Antibiotics) codeine Allergy Unknown See Verified 03/19/16 07:08 Comments ROS unobtainable: due to mental status Exam - Constitutional Vitals: Temp Pulse Resp BP Pulse Ox 99.2 F 96 35 122/50 100 03/25/17 08:00 03/25/17 09:33 03/25/17 09:53 03/25/17 09:31 03/25/17 09:53 - Additional findings Additional findings: General: Cooperative, pleasant, no acute distress, alert, does not answers questions appropriately HEENT: Normocephalic, atraumatic, Conjunctiva pink, sclera anicteric, Respiratory: Bilateral rhonchi appreciated, decreased breath sounds and bilateral bases Cardiovascular: Tachycardia, regular rhythm, S1 and S2 present, no murmurs/rubs/ gallops/clicks appreciated GI/abdominal: Nondistended, tenderness to palpation in right lower lobe, soft, normal bowel sounds, no peritoneal signs Extremities: No calf tenderness, mild pedal edema appreciated, warm, lower extremity pulses palpable and symmetrical Neurological: Alert, no facial droop, no focal deficits Skin: Dry, intact, normal color Infectious Disease CN: Results - Labs CBC & Chem 7: 03/26/17 04:48 03/26/17 04:48 Cultures: Cultures 03/18/17 13:20 Blood Culture - Final Peripheral Venipuncture No growth. 03/18/17 13:20 Blood Culture - Final Peripheral Venipuncture No growth. 03/21/17 11:30 Sputum Culture - Final Sputum P. aeruginosa MDRO 03/21/17 10:37 Blood Culture - Preliminary Peripheral Venipuncture No growth. 03/21/17 10:37 Blood Culture - Preliminary Peripheral Venipuncture No growth. 03/15/17 10:02 Sputum Culture - Final Sputum P. aeruginosa MDRO Serology: Serology 03/24/17 03/22/17 03/14/17 Range/Units 08:37 08:00 02:00 Urine Color Red A (Yellow) Urine Clarity Turbid A (Clear) Urine pH 8.0 (5.0-8.0) pH Units Ur Specific [place] 1.012 (1.010-1.025) Urine Protein >=300 H (Neg-Trace) mg/dL Urine Glucose (UA) Normal (Normal) mg/dL Urine Ketones Negative (Negative) mg/dL Urine Blood Moderate H (Negative) Urine Nitrite Negative (Negative) Urine Bilirubin Negative (Negative) Urine Urobilinogen Normal (Normal) mg/dL Ur Leukocyte Esterase Large H (Negative) Urine Microscopic RBC 50-100 H (0-3) per hpf Urine Microscopic WBC TNTC H (0-3) per hpf Ur Squamous Epith Cells Many H (None-Few) per lpf Urine Bacteria None Seen (None-Few) per hpf Hyaline Casts Test Not Performed Urine Yeast Test Not Performed Ur Culture Indicated? NO. (NO) Stl C. cayetanensis PCR Not detected (Not detect) Stool Rotavirus A PCR Not detected (Not detect) Stl Adenov F 40/41 PCR Not detected (Not detect) Stool Astrovirus (PCR) Not detected (Not detect) Stool Campylobacter PCR Not detected (Not detect) Stl C. diff Tox B Gene (Negative) Stl C. diff Tox A/B PCR Not detected (Not detect) Stool Cryptosporidium PCR Not detected (Not detect) Stl Sh Tox Pr E STEC PCR Not detected (Not detect) Stool E coli O157 PCR Not detected (Not detect) Stl Enterotoxigenic E PCR Not detected (Not detect) Stool EPEC (PCR) Not detected (Not detect) Stool EAEC (PCR) Not detected (Not detect) Stl E. histolytica PCR Not detected (Not detect) Stool Giardia Lamblia PCR Not detected (Not detect) Stool Salmonella PCR Not detected (Not detect) Stool Sapovirus (PCR) Not detected (Not detect) Stl P. shigelloides PCR Not detected (Not detect) Stl Shigella/EIEC PCR Not detected (Not detect) St Y.enterocolitica PCR Not detected (Not detect) Stool Vibrio (PCR) Not detected (Not detect) Stl Vibrio cholerae PCR Not detected (Not detect) Stl Norovirus GI/GII PCR Not detected (Not detect) Stl GI Panel (PCR) Com See below Chlamy pneumoniae PCR Not Detected (Not Detect) Adenovirus (PCR) Not Detected (Not Detect) B. pertussis DNA (PCR) Not Detected (Not Detect) B.parapertussis DNA PCR Not Detected (Not Detect) Coronavirus OC43 (PCR) Not Detected (Not Detect) Coronavirus HKU1 (PCR) Not Detected (Not Detect) Coronavirus 229E (PCR) Not Detected (Not Detect) Coronavirus NL63 (PCR) Not Detected (Not Detect) Hep Bs Antigen (Nonreactive) Hep Bs Antibody mIU/mL Human Metapneumovir PCR Not Detected (Not Detect) Influenza A (H1) PCR Not Detected (Not Detect) Influ A (H1N1/09) PCR Not Detected (Not Detect) Influenza A (H3) PCR Not Detected (Not Detect) Influenza A Untype (PCR) Not Detected (Not Detect) Influenza Type B (PCR) Not Detected (Not Detect) M.pneumoniae DNA (PCR) Not Detected (Not Detect) Parainfluenza 1 (PCR) Not Detected (Not Detect) Parainfluenza 2 (PCR) Not Detected (Not Detect) Parainfluenza 3 (PCR) Not Detected (Not Detect) Parainfluenza 4 (PCR) Not Detected (Not Detect) RSV (PCR) Not Detected (Not Detect) Entero/Rhino (PCR) Not Detected (Not Detect) 03/13/17 03/13/17 Range/Units 22:40 17:30 Urine Color (Yellow) Urine Clarity (Clear) Urine pH (5.0-8.0) pH Units Ur Specific [place] (1.010-1.025) Urine Protein (Neg-Trace) mg/dL Urine Glucose (UA) (Normal) mg/dL Urine Ketones (Negative) mg/dL Urine Blood (Negative) Urine Nitrite (Negative) Urine Bilirubin (Negative) Urine Urobilinogen (Normal) mg/dL Ur Leukocyte Esterase (Negative) Urine Microscopic RBC (0-3) per hpf Urine Microscopic WBC (0-3) per hpf Ur Squamous Epith Cells (None-Few) per lpf Urine Bacteria (None-Few) per hpf Hyaline Casts Urine Yeast Ur Culture Indicated? (NO) Stl C. cayetanensis PCR (Not detect) Stool Rotavirus A PCR (Not detect) Stl Adenov F 40/ PCR (Not detect) Stool Astrovirus (PCR) (Not detect) Stool Campylobacter PCR (Not detect) Stl C. diff Tox B Gene Negative (Negative) Stl C. diff Tox A/B PCR (Not detect) Stool Cryptosporidium PCR (Not detect) Stl Sh Tox Pr E STEC PCR (Not detect) Stool E coli O157 PCR (Not detect) Stl Enterotoxigenic E PCR (Not detect) Stool EPEC (PCR) (Not detect) Stool EAEC (PCR) (Not detect) Stl E. histolytica PCR (Not detect) Stool Giardia Lamblia PCR (Not detect) Stool Salmonella PCR (Not detect) Stool Sapovirus (PCR) (Not detect) Stl P. shigelloides PCR (Not detect) Stl Shigella/EIEC PCR (Not detect) St Y.enterocolitica PCR (Not detect) Stool Vibrio (PCR) (Not detect) Stl Vibrio cholerae PCR (Not detect) Stl Norovirus GI/GII PCR (Not detect) Stl GI Panel (PCR) Com Chlamy pneumoniae PCR (Not Detect) Adenovirus (PCR) (Not Detect) B. pertussis DNA (PCR) (Not Detect) B.parapertussis DNA PCR (Not Detect) Coronavirus OC43 (PCR) (Not Detect) Coronavirus HKU1 (PCR) (Not Detect) Coronavirus 229E (PCR) (Not Detect) Coronavirus NL63 (PCR) (Not Detect) Hep Bs Antigen Nonreactive (Nonreactive) Hep Bs Antibody 7.75 mIU/mL Human Metapneumovir PCR (Not Detect) Influenza A (H1) PCR (Not Detect) Influ A (H1N1/09) PCR (Not Detect) Influenza A (H3) PCR (Not Detect) Influenza A Untype (PCR) (Not Detect) Influenza Type B (PCR) (Not Detect) M.pneumoniae DNA (PCR) (Not Detect) Parainfluenza 1 (PCR) (Not Detect) Parainfluenza 2 (PCR) (Not Detect) Parainfluenza 3 (PCR) (Not Detect) Parainfluenza 4 (PCR) (Not Detect) RSV (PCR) (Not Detect) Entero/Rhino (PCR) (Not Detect) - Imaging and Cardiology CT scan - chest Status: image reviewed by me Chest x-ray Status: image reviewed by me - VTE Documentation of Mechanical Device: Intermittent pneumatic compression device Consult Discharge Plan - Plan Referrals: NONE,PCP [Primary Care Provider] - - Attending Attestation I examined this patient and my medical decision-making was reviewed with the Resident Physician. I agree with the documented findings, disposition and treatment plan as described except to the extent set forth below. This is an addendum to original report dictated by resident physician. Please refer to the residents note for full detail. Patient is a 71-year-old gentleman who unfortunately had brain cancer about a year ago underwent surgery at [facility] with residual paraplegia and requiring a stent aport and affect to. Patient has been on trach for quite some time about 6 months and has a PEG tube. Patient also had a history of bladder cancer with removal of bladder, history of intracranial hemorrhage secondary to fall with residual left-sided deficit, diabetes mellitus type 2, hypertension, and straight hell disease on hemodialysis and seizure disorder came in to [facility] on 03/13/2017 after having cardiac arrest at outlying facility. We are asked to evaluate the patient today for persistent fever and leukocytosis and tracheobronchitis with pseudomonas aeruginosa that was multidrug resistant. During the hospital stay patient has been having fevers and tachycardia, tachypnea and persistent leukocytosis. Patients has been on multiple antibiotics including vancomycin from 03/13/2017 2 03/15/2017 followed by cefepime from 03/13/2017 2-818 and tobramycin from 03/21/17 through now and also received meropenem on 03/21/17 and 03/22/18. Patient apparently did not improve so we were asked to evaluate the patient and make further recommendations. Currently patient is on vent support not requiring pressors. Patient opens eyes spontaneously. On physical exam he does have a lot of thick secretions from the tracheostomy. Patient also had coarse breath sounds bilaterally. On abdominal exam he did have some grimacing 18 did some palpation of the abdomen specially in the left lower quadrant. On the buttock patient has some excoriation maybe stage I or stage II decubitus ulcer. Rest of the exam was unremarkable. Im not sure whats causing the patient continued to be septic. It is a possibility that the patient has other sources of infection other than the multidrug resistant Pseudomonas in the lung. I discussed with Dr. webb at length and hes okay with us reimaging the patient was a CT chest, abdomen and pelvis. Especially that he was having some grimacing when I palpate his abdomen. We will also check lipase and amylase and LFTs. We will repeat blood cultures and check urine strep to caucus antigen and Legionella antigen. I we ll broaden the spectrum of antibiotics to include vancomycin and Zosyn and continue to tobramycin for now. Patients other workup has been noted. We will continue to evaluate and will notify the primary team.
--- NOTE | 2017-03-25 11:05 | Nephrology Progress Note ---
Date of Encounter: 03/25/17 Time of Encounter: 09:15 - Assessment and Plan (1) ESRD (end stage renal disease) on dialysis Current Visit: No Status: Chronic ESRD on HD M/W/F with HD due today (Saturday). Since he's going to d/c soon to a TTS schedule, will tentatively plan for HD tomorrow to reset him to the new schedule. Anema. Recommend ZENA. Goal Hgb 10-11. May need PRBCs transfused soon. Apparantly this was occurring every few weeks when he was a [facility]. Will defer any GI work up, if indicated, to the primary team. MBD-CKD: using a lower Ca bath (2 instead of 2.5) d/t a mildly elevated serum Ca. He has SHPT and using Ergo would not be advisable d/t the mild hypercalcemia. Recommended changing him to Sensipar which could help the elevated iPTH and the serum Ca. However this med may be limited d/t his trach and swallow function. HTN/Volume status: He has been having intradialytic hypotension. Will cont efforts at UF as his BPs allow. May need midodrine at some point. Monitor his hx of b/l effusions. Access: LUE AVF, and working well. He is planning to d/c to an ECF called [facility], which has a private dialysis unit with Dr. Mohr's group. I spoke with his team that this pt was to discharge soon to [facility] for a courtesy update. (2) Hypertension Current Visit: Yes Status: Acute Qualifiers: Qualified Code(s): I10 - Essential (primary) hypertension (3) Hyperphosphatemia Current Visit: No Status: Acute Subjective Principal diagnosis: PEA Arrest Interval history: Pt was seen/examined. No new major events over the weekend. He is trached thus limiting the subjective hx. Objective - Vital Signs Vital signs: Vital Signs Temp Pulse Resp BP Pulse Ox 03/25/17 10:13 96 22 122/44 100 03/25/17 09:53 35 100 03/25/17 09:33 96 03/25/17 09:31 96 27 122/50 100 03/25/17 08:00 99.2 F 105 20 167/68 100 03/25/17 07:33 24 100 03/25/17 06:00 112 22 112/39 100 03/25/17 05:47 26 112/46 100 03/25/17 05:00 113 24 109/46 97 03/25/17 04:34 100.8 F H 03/25/17 03:23 20 129/42 99 03/25/17 03:00 105 20 135/46 97 03/25/17 02:00 103 20 132/38 97 03/25/17 01:26 24 123/49 99 03/25/17 01:00 101 21 123/49 97 03/25/17 00:16 101 03/25/17 00:00 101 22 130/40 97 03/24/17 23:28 20 137/51 100 03/24/17 23:00 97 22 137/51 100 03/24/17 22:00 98 22 154/83 100 03/24/17 21:25 22 125/40 100 03/24/17 21:00 102 22 125/40 100 03/24/17 20:00 99 F 105 22 128/51 100 03/24/17 19:45 109 03/24/17 19:40 22 132/42 97 03/24/17 19:00 107 28 125/46 95 03/24/17 18:00 104 24 132/75 98 03/24/17 17:28 24 138/62 100 03/24/17 17:00 103 25 138/62 99 03/24/17 16:00 100 24 128/56 98 03/24/17 15:24 100 03/24/17 15:13 23 125/58 98 03/24/17 15:00 99.1 F 100 23 125/58 98 03/24/17 14:00 101 24 141/50 98 03/24/17 13:30 21 129/40 99 03/24/17 13:00 94 18 117/50 98 03/24/17 12:00 92 24 102/34 99 03/24/17 11:19 101 03/24/17 11:07 18 113/37 97 Intake and Output 03/24/17 03/25/17 03/25/17 23:59 07:59 15:59 Intake Total 770.5 / 770.5 0 / 0 553 / 553 Output Total 5 / 5 100 / 100 10 / 10 Balance 765.5 / 765.5 -100 / -100 543 / 543 Intake: IV Fluids 302.5 / 302.5 Amiodarone Drip Premix 360mg/ 200 / 200 200mL 360 mg In 200 ml @ 0.5 MG /MIN 16.667 mls/hr IVC CONT PRINCE Rx#:[id number] Depacon 250 MG In 0.9 % Sodium 102.5 / 102.5 Chloride 100 ML @ 100 mls/hr IVPB BID PRINCE Rx#:[id number] Tube Feeding 468 / 468 453 / 453 Free Water 50 / 50 Free Water Intake Amount 0 / 0 0 / 0 50 / 50 Output: Rectal Tube 100 / 100 Urostomy 5 / 5 Catheter Other: Stool Size Moderate Stool Color Brown Blood Glucose* 197 171 186 - General Appearance General appearance: Present: cachectic, chronically ill, fatigue, frail EENT: Present: ATNC Additional Comments: Trach Respiratory: Present: clear Cardiology: Present: no edema, regular rate, regular rhythm, normal S1, normal S2 Dialysis Vascular Access: Arteriovenous Fistula (Left UE AVF) thrill: Yes bruit: Yes Gastrointestinal: Present: normoactive bowel sounds, no tenderness, no guarding Integumentary: Present: no rash, warm and dry Neurologic: Present: no asterixis Musculoskeletal: Present: no cyanosis, no clubbing Psychiatric: Present: cooperative - Lab 03/26/17 04:48 03/26/17 04:48 Most recent lab results ABG pH 7.47 pH Units (7.32-7.45) H 03/25/17 09:01 ABG pCO2 30 mmHg (35-45) L 03/25/17 09:01 ABG pO2 71 mmHg (85-104) L 03/25/17 09:01 ABG HCO3 21 mEq/L (21-27) 03/25/17 09:01 ABG O2 Saturation 95 % (95-98) 03/25/17 09:01 Calcium 10.3 mg/dL (8.6-10.3) 03/25/17 04:34 Phosphorus 5.1 mg/dL (2.7-4.5) H 03/22/17 03:35 Magnesium 2.3 mg/dL (1.6-2.6) 03/25/17 04:34 - VTE Documentation of Mechanical Device: Intermittent pneumatic compression device Consult Discharge Plan - Plan Referrals: NONE,PCP [Primary Care Provider] -
[2017-03-25] MEDS: *HR* Amiodarone 200 MG TABLET PO SCH (11:41)
[2017-03-25] MEDS: Miconazole w/zinc oxide&karaya 92 APPL/92 GM TUBE TP SCH ×2 (11:47→21:38)
[2017-03-25] MEDS: Leptospermum Honey Gel 44 ML TUBE TP SCH ×2 (11:47→21:39)
--- NOTE | 2017-03-25 11:56 | Pulmonology Progress Note ---
Date of Encounter: 03/25/17 Time of Encounter: 07:15 Assessment and Plan (1) Acute and chronic respiratory failure Current Visit: Yes Status: Chronic Patient was chronic respiratory failure then dependent and attempted a CPAP trial but patient was not able to complete that trial. Respiratory rate decreased due to the respiratory alkalosis. Patient is planned to go to long- term facility infectious disease to see the patient for more recommendations regarding this possible pneumonia and then he can be transferred. Qualifiers: Respiratory failure complication: hypoxia Qualified Code(s): J96.21 - Acute and chronic respiratory failure with hypoxia (2) Pneumonia Current Visit: Yes Status: Acute Infectious diseases consultation. Qualifiers: Pneumonia type: due to Pseudomonas Laterality: bilateral Lung location: unspecified part of lung Qualified Code(s): J15.1 - Pneumonia due to Pseudomonas (3) ESRD (end stage renal disease) on dialysis Current Visit: No Status: Chronic Nephrology follow-up. Subjective Principal diagnosis: PEA Arrest Interval history: There is no significant changes in patient denies any complaint. 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) Ventilator Settings Ventilator Settings: Ventilator Settings, Last 8 Hours Ventilator Mode A/C Ventilator Mode A/C Ventilator Mode A/C Ventilator Mode A/C Ventilator Mode A/C Ventilator Mode A/C Ventilator Mode A/C Ventilator Mode A/C Ventilator Tidal Volume 500 Setting Ventilator Tidal Volume 500 Setting Ventilator Tidal Volume 500 Setting Ventilator Tidal Volume 500 Setting Ventilator Tidal Volume 500 Setting Ventilator Tidal Volume 500 Setting Ventilator Tidal Volume 500 Setting Ventilator Tidal Volume 500 Setting Ventilator Respiratory Rate 18 Setting Ventilator Respiratory Rate 18 Setting Ventilator Respiratory Rate 18 Setting Ventilator Respiratory Rate 18 Setting Ventilator Respiratory Rate 18 Setting Ventilator Respiratory Rate 18 Setting Ventilator Respiratory Rate 18 Setting Ventilator Respiratory Rate 18 Setting Actual Respiratory Rate 23 Actual Respiratory Rate 22 Actual Respiratory Rate 26 Actual Respiratory Rate 21 Actual Respiratory Rate 24 Actual Respiratory Rate 26 Actual Respiratory Rate 19 Positive End Expiratory 5 Pressure Positive End Expiratory 5 Pressure Positive End Expiratory 5 Pressure Positive End Expiratory 5 Pressure Positive End Expiratory 5 Pressure Positive End Expiratory 5 Pressure Positive End Expiratory 5 Pressure Positive End Expiratory 5 Pressure Peak Inspiratory Airway 20 Pressure Peak Inspiratory Airway 23 Pressure Peak Inspiratory Airway 23 Pressure Peak Inspiratory Airway 22 Pressure Peak Inspiratory Airway 23 Pressure Peak Inspiratory Airway 23 Pressure Results - Laboratory Findings CBC and BMP: 03/25/17 04:34 03/25/17 04:34 ABG ABG pH 7.47 pH Units (7.32-7.45) H 03/25/17 09:01 ABG pCO2 30 mmHg (35-45) L 03/25/17 09:01 ABG pO2 71 mmHg (85-104) L 03/25/17 09:01 ABG O2 Saturation 95 % (95-98) 03/25/17 09:01 PT/INR, D-dimer PT 12.5 Seconds (9.4-12.1) H 03/13/17 13:43 Abnormal lab findings: Abnormal lab results WBC 22.6 K/mcL (4.3-11.1) H 03/25/17 04:34 RBC 2.31 M/mcL (4.19-5.50) L 03/25/17 04:34 Hgb 7.1 g/dL (12.9-16.9) L 03/25/17 04:34 Hct 22.0 % (37.5-50.1) L 03/25/17 04:34 RDW 16.2 % (11.5-14.5) H 03/25/17 04:34 MPV 12.5 fL (9.4-12.4) H 03/25/17 04:34 Neutrophils # 18.2 K/mcL (1.6-8.9) H 03/25/17 04:34 Monocytes # 2.0 K/mcL (0.0-1.3) H 03/25/17 04:34 Nucleated RBCs/100 WBC 0.1 /100 WBC (0) H 03/21/17 03:45 Large Platelets Present (Not Present) A 03/21/17 03:45 Polychromasia 1+ (Not Present) A 03/21/17 03:45 Anisocytosis 1+ (Not Present) A 03/24/17 04:32 Macrocytosis Present (Not Present) A 03/21/17 03:45 PT 12.5 Seconds (9.4-12.1) H 03/13/17 13:43 APTT 36.4 Seconds (26.0-36.0) H 03/13/17 13:43 ABG pH 7.47 pH Units (7.32-7.45) H 03/25/17 09:01 ABG pCO2 30 mmHg (35-45) L 03/25/17 09:01 ABG pO2 71 mmHg (85-104) L 03/25/17 09:01 Chloride 97 mEq/L (98-107) L 03/25/17 04:34 Carbon Dioxide 21 mEq/L (23-29) L 03/25/17 04:34 BUN > 130 mg/dL (8-23) H 03/25/17 04:34 Creatinine 7.94 mg/dL (0.70-1.30) H 03/25/17 04:34 Est GFR ( Amer) 8 (> 60) L 03/25/17 04:34 Est GFR (Non-Af Amer) 7 (> 60) L 03/25/17 04:34 Glucose 178 mg/dL (70-105) H 03/25/17 04:34 POC Glucose 163 (58-89) H 03/25/17 00:00 Phosphorus 5.1 mg/dL (2.7-4.5) H 03/22/17 03:35 Iron 58 mcg/dL (65-175) L 03/18/17 11:18 Transferrin 125 mg/dL (203-362) L 03/18/17 11:18 Alkaline Phosphatase 331 Units/L (34-104) H 03/13/17 13:43 Troponin I 0.07 ng/mL (< 0.04) H* 03/16/17 21:10 B-Natriuretic Peptide 2742 pg/mL (Less than 100) H 03/13/17 22:40 Albumin 3.3 g/dL (3.5-5.7) L 03/13/17 13:43 Globulin 3.7 g/dL (2.4-3.5) H 03/13/17 13:43 Albumin/Globulin Ratio 0.9 (1.1-2.2) L 03/13/17 13:43 25-OH Vitamin D Total 24 ng/mL (30-80) L 03/18/17 11:18 Folate 43.0 ng/mL (3.0-16.0) H 03/18/17 11:18 PTH Intact 395.7 pg/ml (10.0-65.0) H 03/18/17 11:18 Urine Color Red (Yellow) A 03/24/17 08:37 Urine Clarity Turbid (Clear) A 03/24/17 08:37 Urine Protein >=300 mg/dL (Neg-Trace) H 03/24/17 08:37 Urine Blood Moderate (Negative) H 03/24/17 08:37 Ur Leukocyte Esterase Large (Negative) H 03/24/17 08:37 Urine Microscopic RBC 50-100 per hpf (0-3) H 03/24/17 08:37 Urine Microscopic WBC TNTC per hpf (0-3) H 03/24/17 08:37 Ur Squamous Epith Cells Many per lpf (None-Few) H 03/24/17 08:37 Tobramycin Trough 4.4 mcg/mL (0-2.0) H 03/25/17 04:34 Digoxin 0.5 ng/mL (0.8-2.0) L 03/13/17 13:43 Phenytoin 4.3 mcg/mL (10.0-20.0) L 03/15/17 04:12 Free Phenytoin 0.8 ug/mL (1.0-2.5) L 03/15/17 04:12 Total Phenytoin 5.2 ug/mL (10.0-20.0) L 03/15/17 04:12 Percent Free Phenytoin 15.4 % (8.0-14.0) H 03/15/17 04:12 Valproic Acid 14 mcg/mL (50-100) L 03/13/17 13:43 - Microbiology Findings Microbiology Findings: Microbiology, Last 48 Hours 03/18/17 13:20 Blood Culture - Final Peripheral Venipuncture No growth. 03/18/17 13:20 Blood Culture - Final Peripheral Venipuncture No growth. 03/21/17 11:30 Sputum Culture - Final Sputum P. aeruginosa MDRO 03/21/17 10:37 Blood Culture - Preliminary Peripheral Venipuncture No growth. 02/08/18 10:37 Blood Culture - Preliminary Peripheral Venipuncture No growth. - Diagnostic Findings Chest x-ray: report reviewed, image reviewed - Clinical Findings Intake & Output: Intake & Output 03/24/17 03/25/17 03/25/17 23:59 07:59 15:59 Intake Total 770.5 / 770.5 0 / 0 553 / 553 Output Total 5 / 5 100 / 100 10 / 10 Balance 765.5 / 765.5 -100 / -100 543 / 543 - VTE Documentation of Mechanical Device: Intermittent pneumatic compression device Consult Discharge Plan - Plan Referrals: NONE,PCP [Primary Care Provider] -
[2017-03-25] MEDS ORDERED: Valproic Acid Oral Soln 250 MG/5 ML UDC GTUBE SCH (12:00)
[2017-03-25] MEDS: *HR* FentaNYL (PF) 100 MCG/2 ML VIAL IVP PRN (15:38)
[2017-03-25] MEDS ORDERED: Ondansetron 4 MG/2 ML VIAL IVP PRN (16:26)
[2017-03-25] MEDS ORDERED: Ondansetron 4 MG/2 ML VIAL ONE (16:29)
[2017-03-25] MEDS: TOBRAMYCIN SULF IVPB SCH (18:12)
[2017-03-25] MEDS: WATER IVPB SCH (18:12)
[2017-03-25] MEDS: D5 IVPB SCH (18:12)
[2017-03-25] MEDS: Albuterol 2.5 MG/3 ML NEBULIZER IH PRN (18:43)
[2017-03-25 19:55] LABS: Bilirubin,Urine Small (Negative); Blood,Urine Moderate (Negative); Clarity,Urine Turbid (Clear); Glucose,Urine (UA) Normal (Normal); Ketones,Urine Negative (Negative); Leukocyte Esterase,Urine Large (Negative); Nitrite,Urine Negative (Negative); PH,Urine >=9.0 pH Units (5.0-8.0); Protein,Urine >=300 mg/dL (Neg-Trace); Specific Gravity,Urine 1.015 (1.010-1.025); Urobilinogen,Urine Normal (Normal)
[2017-03-25 20:28] LABS: Color,Urine Dark Yellow (Yellow)
[2017-03-25 21:38] LABS: RBC,Urine Present per hpf (0-3)
[2017-03-25] MEDS: Valproic Acid 250 MG CAPSULE PO SCH (21:38)
[2017-03-25 21:39] LABS: Hyaline Casts,Urine Few per lpf (None-Few); Renal Epithelial Cells,Urine Present per hpf (None-Few); Squamous Epithelial Cell,Urine Present per lpf (None-Few)
[2017-03-25] MEDS: Dexmedetomidine HCl 200 MCG/50 ML MLS IVC SCH (21:39)
[2017-03-25 21:40] LABS: Bacteria,Urine Many per hpf (None-Few); Mucus,Urine Many (Few); Oval Fat Bodies,Urine Present (Not Present); WBC,Urine TNTC per hpf (0-3); Yeast,Urine Many per hpf (None Seen)
[2017-03-26] MEDS: Insulin LISPRO 300 UNITS/3 ML VIAL SQ SCH ×6 (00:16→22:54)
[2017-03-26] MEDS: Ipratropium/Albuterol Neb 3 ML IH SCH ×4 (03:21→21:21)
[2017-03-26 05:15] LABS: Basophils # 0.1 K/mcL (0.0-0.2); Basophils % 0.3 %; Eosinophils # 0.4 K/mcL (0.0-0.6); Hematocrit 21.3 % (37.5-50.1); Hemoglobin 6.8 g/dL (12.9-16.9); Immature Granulocytes % 1.5 % (0-4); Lymphocytes # 1.2 K/mcL (0.6-4.6); Lymphocytes % 6.7 %; Mean Corpuscular HGB Conc 31.9 g/dL (31.6-35.5); Mean Corpuscular Hemoglobin 30.5 pg (28.0-33.3); Mean Corpuscular Volume 95.5 fL (83.0-100.0); Mean Platelet Volume 12.7 fL (9.4-12.4); Monocytes # 1.5 K/mcL (0.0-1.3); Monocytes % 8.5 %; Neutrophils # 14.5 K/mcL (1.6-8.9); Nucleated Red Blood Cells 0.1 /100 WBC (0); Platelet Count 360 K/mcL (140-400); Red Blood Count 2.23 M/mcL (4.19-5.50); Red Cell Distribution Width 16.3 % (11.5-14.5)
[2017-03-26 05:43] LABS: Albumin/Globulin Ratio 0.8 (1.1-2.2); Bilirubin,Total 0.3 mg/dL (0.3-1.0); Calcium 9.5 mg/dL (8.6-10.3); Globulin 3.6 g/dL (2.4-3.5); Potassium 4.2 mEq/L (3.5-5.1); Total Protein 6.6 g/dL (6.4-8.9)
[2017-03-26] MEDS: *HR* Heparin 5,000 UNIT/ML VIAL SQ SCH ×3 (05:53→23:21)
[2017-03-26] MEDS: FentaNYL (PF) 1,000 MCG in 0.9 % Sodium Chloride 80 ML IVC SCH ×2 (07:53→16:08)
[2017-03-26] MEDS: Dexmedetomidine HCl 200 MCG/50 ML MLS IVC SCH ×2 (07:54→16:09)
[2017-03-26] MEDS: Pantoprazole 40 MG VIAL IVP SCH (09:32)
[2017-03-26] MEDS: Chlorhexidine Rinse 15 ML MOUTHWASH MM SCH ×2 (09:32→23:21)
[2017-03-26] MEDS: Valproic Acid 250 MG CAPSULE PO SCH (09:33)
[2017-03-26] MEDS ORDERED: 0.9 % Sodium Chloride 250 ML IVC PRN ×2 (09:33→18:10)
[2017-03-26] MEDS: *HR* Amiodarone 200 MG TABLET PO SCH (09:33)
[2017-03-26] MEDS: Insulin DETEMIR 100 UNIT/ML X5UNITS SQ SCH (09:34)
[2017-03-26] MEDS: Leptospermum Honey Gel 44 ML TUBE TP SCH ×2 (09:38→23:22)
[2017-03-26] MEDS: Miconazole w/zinc oxide&karaya 92 APPL/92 GM TUBE TP SCH ×2 (09:38→23:22)
[2017-03-26] MEDS ORDERED: 0.9 % Sodium Chloride 2,000 ML ONE (10:10)
--- NOTE | 2017-03-26 11:14 | Pulmonology Progress Note ---
Date of Encounter: 03/26/17 Subjective Principal diagnosis: PEA Arrest Objective PUL Vital signs: Last Vital Signs Temp 98.4 F 03/26/17 04:23 Pulse 102 03/26/17 10:00 Resp 28 03/26/17 10:19 BP 122/55 03/26/17 10:19 Pulse Ox 98 03/26/17 10:19 Ventilator Settings Ventilator Settings: Ventilator Settings, Last 8 Hours Ventilator Mode CPAP Ventilator Mode A/C Ventilator Mode A/C Ventilator Mode A/C Ventilator Mode A/C Ventilator Tidal Volume 500 Setting Ventilator Tidal Volume 500 Setting Ventilator Tidal Volume 500 Setting Ventilator Tidal Volume 500 Setting Ventilator Respiratory Rate 14 Setting Ventilator Respiratory Rate 14 Setting Ventilator Respiratory Rate 14 Setting Ventilator Respiratory Rate 14 Setting Actual Respiratory Rate 28 Actual Respiratory Rate 17 Actual Respiratory Rate 24 Actual Respiratory Rate 22 Actual Respiratory Rate 15 Positive End Expiratory 5 Pressure Positive End Expiratory 5 Pressure Positive End Expiratory 5 Pressure Positive End Expiratory 5 Pressure Positive End Expiratory 5 Pressure Peak Inspiratory Airway 16 Pressure Peak Inspiratory Airway 29 Pressure Peak Inspiratory Airway 20 Pressure Peak Inspiratory Airway 24 Pressure Peak Inspiratory Airway 23 Pressure Results - Laboratory Findings CBC and BMP: 03/26/17 04:48 03/26/17 04:48 ABG ABG pH 7.47 pH Units (7.32-7.45) H 03/25/17 09:01 ABG pCO2 30 mmHg (35-45) L 03/25/17 09:01 ABG pO2 71 mmHg (85-104) L 03/25/17 09:01 ABG O2 Saturation 95 % (95-98) 03/25/17 09:01 PT/INR, D-dimer PT 12.5 Seconds (9.4-12.1) H 03/13/17 13:43 Abnormal lab findings: Abnormal lab results WBC 17.9 K/mcL (4.3-11.1) H 03/26/17 04:48 RBC 2.23 M/mcL (4.19-5.50) L 03/26/17 04:48 Hgb 6.8 g/dL (12.9-16.9) L 03/26/17 04:48 Hct 21.3 % (37.5-50.1) L 03/26/17 04:48 RDW 16.3 % (11.5-14.5) H 03/26/17 04:48 MPV 12.7 fL (9.4-12.4) H 03/26/17 04:48 Neutrophils # 14.5 K/mcL (1.6-8.9) H 03/26/17 04:48 Monocytes # 1.5 K/mcL (0.0-1.3) H 03/26/17 04:48 Nucleated RBCs/100 WBC 0.1 /100 WBC (0) H 03/26/17 04:48 Large Platelets Present (Not Present) A 03/21/17 03:45 Polychromasia 1+ (Not Present) A 03/21/17 03:45 Anisocytosis 1+ (Not Present) A 03/24/17 04:32 Macrocytosis Present (Not Present) A 03/21/17 03:45 PT 12.5 Seconds (9.4-12.1) H 03/13/17 13:43 APTT 36.4 Seconds (26.0-36.0) H 03/13/17 13:43 ABG pH 7.47 pH Units (7.32-7.45) H 03/25/17 09:01 ABG pCO2 30 mmHg (35-45) L 03/25/17 09:01 ABG pO2 71 mmHg (85-104) L 03/25/17 09:01 Chloride 97 mEq/L (98-107) L 03/26/17 04:48 BUN 99 mg/dL (8-23) H 03/26/17 04:48 Creatinine 6.11 mg/dL (0.70-1.30) H 03/26/17 04:48 Est GFR ( Amer) 11 (> 60) L 03/26/17 04:48 Est GFR (Non-Af Amer) 9 (> 60) L 03/26/17 04:48 Glucose 126 mg/dL (70-105) H 03/26/17 04:48 Calculated Osmolality 320 (280-300) H 03/26/17 04:48 Phosphorus 5.1 mg/dL (2.7-4.5) H 03/22/17 03:35 Iron 58 mcg/dL (65-175) L 03/18/17 11:18 Transferrin 125 mg/dL (203-362) L 03/18/17 11:18 AST 42 Units/L (13-39) H 03/26/17 04:48 Alkaline Phosphatase 285 Units/L (34-104) H 03/26/17 04:48 Troponin I 0.07 ng/mL (< 0.04) H* 03/16/17 21:10 B-Natriuretic Peptide 2742 pg/mL (Less than 100) H 03/13/17 22:40 Albumin 3.0 g/dL (3.5-5.7) L 03/26/17 04:48 Globulin 3.6 g/dL (2.4-3.5) H 03/26/17 04:48 Albumin/Globulin Ratio 0.8 (1.1-2.2) L 03/26/17 04:48 Amylase 22 Units/L (29-103) L 03/26/17 04:48 25-OH Vitamin D Total 24 ng/mL (30-80) L 03/18/17 11:18 Folate 43.0 ng/mL (3.0-16.0) H 03/18/17 11:18 PTH Intact 395.7 pg/ml (10.0-65.0) H 03/18/17 11:18 Ur Specimen Adequacy See below A 03/25/17 18:45 Urine Clarity Turbid (Clear) A 03/25/17 18:45 Urine pH >=9.0 pH Units (5.0-8.0) H 03/25/17 18:45 Urine Protein >=300 mg/dL (Neg-Trace) H 03/25/17 18:45 Urine Blood Moderate (Negative) H 03/25/17 18:45 Urine Bilirubin Small (Negative) H 03/25/17 18:45 Ur Leukocyte Esterase Large (Negative) H 03/25/17 18:45 Urine Microscopic WBC TNTC per hpf (0-3) H 03/25/17 18:45 Urine Bacteria Many per hpf (None-Few) H 03/25/17 18:45 Urine Mucus Many (Few) H 03/25/17 18:45 Urine Yeast Many per hpf (None Seen) H 03/25/17 18:45 Ur Oval Fat Bodies Present (Not Present) A 03/25/17 18:45 Tobramycin Trough 4.4 mcg/mL (0-2.0) H 03/25/17 04:34 Digoxin 0.5 ng/mL (0.8-2.0) L 03/13/17 13:43 Phenytoin 4.3 mcg/mL (10.0-20.0) L 03/15/17 04:12 Free Phenytoin 0.8 ug/mL (1.0-2.5) L 03/15/17 04:12 Total Phenytoin 5.2 ug/mL (10.0-20.0) L 03/15/17 04:12 Percent Free Phenytoin 15.4 % (8.0-14.0) H 03/15/17 04:12 Valproic Acid 14 mcg/mL (50-100) L 03/13/17 13:43 - Microbiology Findings Microbiology Findings: Microbiology, Last 48 Hours 03/25/17 18:45 Legionella Antigen - Final Urine,[place] Streptococcus pneumoniae Antigen (M - Final 03/25/17 18:20 Influenza Types A,B Antigen (MIKAELA) - Final Nasopharyngeal 03/18/17 13:20 Blood Culture - Final Peripheral Venipuncture No growth. 03/18/17 13:20 Blood Culture - Final Peripheral Venipuncture No growth. - Clinical Findings Intake & Output: Intake & Output 03/25/17 03/26/17 03/26/17 23:59 07:59 15:59 Intake Total 329 / 329 443 / 443 153 / 153 Output Total 2881 / 2881 0 / 0 0 / 0 Balance -2552 / -2552 443 / 443 153 / 153 - VTE Documentation of Mechanical Device: Intermittent pneumatic compression device Consult Discharge Plan - Plan Referrals: NONE,PCP [Primary Care Provider] -
--- NOTE | 2017-03-26 11:16 | Infectious Disease Progress No ---
Date of Encounter: 03/26/17 Time of Encounter: 09:15 - Assessment and Plan (1) Severe sepsis Current Visit: Yes Status: Acute Patient positive with 4 SIRS criteria: Leukocytosis, febrile, tachycardic, tachypneic on 03/25/17, but improved as of this morning Repeat CT of his chest, abdomen, and pelvis performed did show consolidation in the right lower lobe suggestive of bacterial pneumonia Strep pneumonia antigen positive Possible complicated UTI Patient presented in PEA arrest suspect due to hypoxia 03/13 - Chest CT showed multifocal pneumonia versus edema, though significant bilateral pleural effusions appear Echocardiogram showed EF 45% (stable) Head CT showed no acute abnormalities Blood cultures 2 showed no growth CXR showed diffuse multifocal airspace and interstitial opacities bilaterally , pulmonary edema or multifocal pneumonia Patient given single dose Zosyn and Levaquin Patient started on vancomycin for 3 day course Patient started on cefepime for 8 day course 03/14 - CXR showed stable exam with likely bilateral layering pleural effusions with superimposed airspace opacities which may relate to atelectasis, infiltrates, and/or pulmonary edema 03/15 - sputum culture shows MDRO P. aeruginosa sensitive to cefepime, Ceftazidime, Zosyn, tobramycin 03/18 - CXR shows improving diffuse pulmonary edema and bilateral pleural effusions Blood cultures 2 show no growth 03/21 - blood cultures 3 negative Sputum culture positive for MDRO P. aeruginosa sensitive to cefepime and tobramycin Patient restarted on vancomycin due to concerns of continued leukocytosis and fever Patient started on tobramycin Patient started on meropenem for 2 day course 03/22 - stool infectious PCR panel negative for any pathogens 03/23 - CXR shows pulmonary vascular congestion with increasing bilateral perihilar airspace opacities 03/25 - CT chest, abdomen, pelvis shows right lower lobe pulmonary consolidation compatible with pneumonia and no acute findings in the abdomen Strep pneumonia antigen positive, Legionella and influenza antigens negative UA shows leukocyte esterase, bacteria, white blood cells AST slightly elevated at 42, ALT normal at 40 Amylase/lipase normal Patient does not appear to be improving despite appropriate antibiotic treatment for 2 weeks for MDRO pseudomonas, suggesting possible alternate source of infection/inflammation. Patient was evaluated for C. difficile which was negative No obvious sinusitis or URI observed Repeat CTs performed yesterday shortly suggestive of right lower lobe pneumonia Strep pneumoniae antigen positive UA suggestive of UTI, complicated due to presence of nephrostomy. CT abdomen did not reveal any acute causes of potential inflammation, amylase/ lipase were normal, alkaline phosphatase is elevated, liver enzymes slightly elevated We will obtain Procalcitonin We will continue vancomycin, Zosyn, and tobramycin. Consider de-escalation pending urine culture and clinical evaluation Dose adjust antibiotics based on creatinine clearance and patient may on hemodialysis. Discussed with pharmacy staff. (2) Acute and chronic respiratory failure Current Visit: Yes Status: Chronic Patient has tracheostomy is on chronic mechanical ventilation Presenting with PEA arrest suspect is secondary to hypoxia given pleural effusion/pneumonia CT of abdomen shows right lower lobe consolidation consistent with pneumonia and urine antigen positive for strep pneumonia, likely cause of patient acute respiratory failure Plan per primary team ID plan as above Qualifiers: Respiratory failure complication: hypoxia Qualified Code(s): J96.21 - Acute and chronic respiratory failure with hypoxia (3) Tracheobronchitis Current Visit: Yes Status: Acute Patient found to have MDRO P. aeruginosa in his sputum culture. Unclear whether radiographic findings are due to compressive atelectasis versus pneumonia If no pneumonia present could represent tracheobronchitis Plan as above (4) Pulmonary edema Current Visit: No Status: Acute Plan as above Qualifiers: Chronicity: acute Qualified Code(s): J81.0 - Acute pulmonary edema (5) Cardiac arrest Current Visit: Yes Status: Resolved Likely secondary to hypoxia Plan as above (6) Acute metabolic encephalopathy Current Visit: No Status: Acute Continued improvement in patient metabolic encephalopathy seen today (7) ESRD (end stage renal disease) on dialysis Current Visit: No Status: Chronic We will monitor renal function daily Renally dose medications Continue plan per nephrology - Subjective Interval history: Patient more alert today. Eyes were open spontaneously and he did respond to some questions, though unsure how good historian he is. He does not report any fever, chills, sweating, and states overall he has been feeling better than he was yesterday. He had slight improvement in his white blood cell count and has been afebrile for 24 hours. Other vitals have been stable. CT of his chest, abdomen, and pelvis performed yesterday showed improvement in pleural effusion with right lower lobe consolidation consistent with pneumonia. He was also found to be strep pneumoniae antigen positive. Infect Dis PN-Objective Data - Labs CBC & Chem 7: 03/26/17 04:48 03/26/17 04:48 Labs: Laboratory Results - last 24 hr 03/25/17 03/25/17 03/25/17 04:13 08:08 11:52 WBC RBC Hgb Hct MCV MCH MCHC RDW Plt Count MPV Immature Gran % Seg Neutrophils % Lymphocytes % Monocytes % Eosinophils % Basophils % Neutrophils # Lymphocytes # Monocytes # Eosinophils # Basophils # Nucleated RBCs/100 WBC Sodium Potassium Chloride Carbon Dioxide BUN Creatinine Est GFR ( Amer) Est GFR (Non-Af Amer) BUN/Creatinine Ratio Glucose POC Glucose 171 H 186 H 165 H Calculated Osmolality Calcium Total Bilirubin AST ALT Alkaline Phosphatase Serum Total Protein Albumin Globulin Albumin/Globulin Ratio Amylase Lipase Ur Specimen Adequacy Urine Color Urine Clarity Urine pH Ur Specific [place] Urine Protein Urine Glucose (UA) Urine Ketones Urine Blood Urine Nitrite Urine Bilirubin Urine Urobilinogen Ur Leukocyte Esterase Urine Microscopic RBC Urine Microscopic WBC Ur Squamous Epith Cells Ur Renal Epithelial Cell Urine Bacteria Hyaline Casts Urine Mucus Urine Yeast Ur Oval Fat Bodies Random Vancomycin Blood Type 03/25/17 03/25/17 03/25/17 15:54 18:45 19:38 WBC RBC Hgb Hct MCV MCH MCHC RDW Plt Count MPV Immature Gran % Seg Neutrophils % Lymphocytes % Monocytes % Eosinophils % Basophils % Neutrophils # Lymphocytes # Monocytes # Eosinophils # Basophils # Nucleated RBCs/100 WBC Sodium Potassium Chloride Carbon Dioxide BUN Creatinine Est GFR ( Amer) Est GFR (Non-Af Amer) BUN/Creatinine Ratio Glucose POC Glucose 119 H 160 H Calculated Osmolality Calcium Total Bilirubin AST ALT Alkaline Phosphatase Serum Total Protein Albumin Globulin Albumin/Globulin Ratio Amylase Lipase Ur Specimen Adequacy See below A Urine Color Dark Yellow Urine Clarity Turbid A Urine pH >=9.0 H Ur Specific [place] 1.015 Urine Protein >=300 H Urine Glucose (UA) Normal Urine Ketones Negative Urine Blood Moderate H Urine Nitrite Negative Urine Bilirubin Small H Urine Urobilinogen Normal Ur Leukocyte Esterase Large H Urine Microscopic RBC Present Urine Microscopic WBC TNTC H Ur Squamous Epith Cells Present Ur Renal Epithelial Cell Present Urine Bacteria Many H Hyaline Casts Few Urine Mucus Many H Urine Yeast Many H Ur Oval Fat Bodies Present A Random Vancomycin Blood Type 03/26/17 03/26/17 03/26/17 00:02 04:48 04:48 WBC 17.9 H RBC 2.23 L Hgb 6.8 L Hct 21.3 L MCV 95.5 MCH 30.5 MCHC 31.9 RDW 16.3 H Plt Count 360 MPV 12.7 H Immature Gran % 1.5 Seg Neutrophils % 81.0 Lymphocytes % 6.7 Monocytes % 8.5 Eosinophils % 2.0 Basophils % 0.3 Neutrophils # 14.5 H Lymphocytes # 1.2 Monocytes # 1.5 H Eosinophils # 0.4 Basophils # 0.1 Nucleated RBCs/100 WBC 0.1 H Sodium 139 Potassium 4.2 Chloride 97 L Carbon Dioxide 24 BUN 99 H Creatinine 6.11 H Est GFR ( Amer) 11 L Est GFR (Non-Af Amer) 9 L BUN/Creatinine Ratio 16 Glucose 126 H POC Glucose 87 Calculated Osmolality 320 H Calcium 9.5 Total Bilirubin 0.3 AST 42 H ALT 40 Alkaline Phosphatase 285 H Serum Total Protein 6.6 Albumin 3.0 L Globulin 3.6 H Albumin/Globulin Ratio 0.8 L Amylase 22 L Lipase 12 Ur Specimen Adequacy Urine Color Urine Clarity Urine pH Ur Specific [place] Urine Protein Urine Glucose (UA) Urine Ketones Urine Blood Urine Nitrite Urine Bilirubin Urine Urobilinogen Ur Leukocyte Esterase Urine Microscopic RBC Urine Microscopic WBC Ur Squamous Epith Cells Ur Renal Epithelial Cell Urine Bacteria Hyaline Casts Urine Mucus Urine Yeast Ur Oval Fat Bodies Random Vancomycin Blood Type 03/26/17 03/26/17 04:48 10:36 WBC RBC Hgb Hct MCV MCH MCHC RDW Plt Count MPV Immature Gran % Seg Neutrophils % Lymphocytes % Monocytes % Eosinophils % Basophils % Neutrophils # Lymphocytes # Monocytes # Eosinophils # Basophils # Nucleated RBCs/100 WBC Sodium Potassium Chloride Carbon Dioxide BUN Creatinine Est GFR ( Amer) Est GFR (Non-Af Amer) BUN/Creatinine Ratio Glucose POC Glucose Calculated Osmolality Calcium Total Bilirubin AST ALT Alkaline Phosphatase Serum Total Protein Albumin Globulin Albumin/Globulin Ratio Amylase Lipase Ur Specimen Adequacy Urine Color Urine Clarity Urine pH Ur Specific [place] Urine Protein Urine Glucose (UA) Urine Ketones Urine Blood Urine Nitrite Urine Bilirubin Urine Urobilinogen Ur Leukocyte Esterase Urine Microscopic RBC Urine Microscopic WBC Ur Squamous Epith Cells Ur Renal Epithelial Cell Urine Bacteria Hyaline Casts Urine Mucus Urine Yeast Ur Oval Fat Bodies Random Vancomycin 23.5 Blood Type O POSITIVE Cultures: Cultures 03/25/17 18:45 Legionella Antigen - Final Urine,[place] Streptococcus pneumoniae Antigen (M - Final 03/25/17 18:20 Influenza Types A,B Antigen ([place]) - Final Nasopharyngeal 03/18/17 13:20 Blood Culture - Final Peripheral Venipuncture No growth. 03/18/17 13:20 Blood Culture - Final Peripheral Venipuncture No growth. 03/21/17 11:30 Sputum Culture - Final Sputum P. aeruginosa MDRO 03/21/17 10:37 Blood Culture - Preliminary Peripheral Venipuncture No growth. 03/21/17 10:37 Blood Culture - Preliminary Peripheral Venipuncture No growth. 03/15/17 10:02 Sputum Culture - Final Sputum P. aeruginosa MDRO Serology 03/25/17 03/24/17 03/22/17 Range/Units 18:45 08:37 08:00 Ur Specimen Adequacy See below A Urine Color Dark Yellow Red A (Yellow) Urine Clarity Turbid A Turbid A (Clear) Urine pH >=9.0 H 8.0 (5.0-8.0) pH Units Ur Specific [place] 1.015 1.012 (1.010-1.025) Urine Protein >=300 H >=300 H (Neg-Trace) mg/dL Urine Glucose (UA) Normal Normal (Normal) mg/dL Urine Ketones Negative Negative (Negative) mg/dL Urine Blood Moderate H Moderate H (Negative) Urine Nitrite Negative Negative (Negative) Urine Bilirubin Small H Negative (Negative) Urine Urobilinogen Normal Normal (Normal) mg/dL Ur Leukocyte Esterase Large H Large H (Negative) Urine Microscopic RBC Present 50-100 H (0-3) per hpf Urine Microscopic WBC TNTC H TNTC H (0-3) per hpf Ur Squamous Epith Cells Present Many H (None-Few) per lpf Ur Renal Epithelial Cell Present (None-Few) per hpf Urine Bacteria Many H None Seen (None-Few) per hpf Hyaline Casts Few Test Not Performed Urine Mucus Many H (Few) Urine Yeast Many H Test Not Performed Ur Oval Fat Bodies Present A (Not Present) Ur Culture Indicated? NO. (NO) Stl C. cayetanensis PCR Not detected (Not detect) Stool Rotavirus A PCR Not detected (Not detect) Stl Adenov F 40/41 PCR Not detected (Not detect) Stool Astrovirus (PCR) Not detected (Not detect) Stool Campylobacter PCR Not detected (Not detect) Stl C. diff Tox B Gene (Negative) Stl C. diff Tox A/B PCR Not detected (Not detect) Stool Cryptosporidium PCR Not detected (Not detect) Stl Sh Tox Pr E STEC PCR Not detected (Not detect) Stool E coli O157 PCR Not detected (Not detect) Stl Enterotoxigenic E PCR Not detected (Not detect) Stool EPEC (PCR) Not detected (Not detect) Stool EAEC (PCR) Not detected (Not detect) Stl E. histolytica PCR Not detected (Not detect) Stool Giardia Lamblia PCR Not detected (Not detect) Stool Salmonella PCR Not detected (Not detect) Stool Sapovirus (PCR) Not detected (Not detect) Stl P. shigelloides PCR Not detected (Not detect) Stl Shigella/EIEC PCR Not detected (Not detect) St Y.enterocolitica PCR Not detected (Not detect) Stool Vibrio (PCR) Not detected (Not detect) Stl Vibrio cholerae PCR Not detected (Not detect) Stl Norovirus GI/GII PCR Not detected (Not detect) Stl GI Panel (PCR) Com See below Chlamy pneumoniae PCR (Not Detect) Adenovirus (PCR) (Not Detect) B. pertussis DNA (PCR) (Not Detect) B.parapertussis DNA PCR (Not Detect) Coronavirus OC43 (PCR) (Not Detect) Coronavirus HKU1 (PCR) (Not Detect) Coronavirus 229E (PCR) (Not Detect) Coronavirus NL63 (PCR) (Not Detect) Hep Bs Antigen (Nonreactive) Hep Bs Antibody mIU/mL Human Metapneumovir PCR (Not Detect) Influenza A (H1) PCR (Not Detect) Influ A (H1N1/09) PCR (Not Detect) Influenza A (H3) PCR (Not Detect) Influenza A Untype (PCR) (Not Detect) Influenza Type B (PCR) (Not Detect) M.pneumoniae DNA (PCR) (Not Detect) Parainfluenza 1 (PCR) (Not Detect) Parainfluenza 2 (PCR) (Not Detect) Parainfluenza 3 (PCR) (Not Detect) Parainfluenza 4 (PCR) (Not Detect) RSV (PCR) (Not Detect) Entero/Rhino (PCR) (Not Detect) 03/14/17 03/13/17 03/13/17 Range/Units 02:00 22:40 17:30 Ur Specimen Adequacy Urine Color (Yellow) Urine Clarity (Clear) Urine pH (5.0-8.0) pH Units Ur Specific [place] (1.010-1.025) Urine Protein (Neg-Trace) mg/dL Urine Glucose (UA) (Normal) mg/dL Urine Ketones (Negative) mg/dL Urine Blood (Negative) Urine Nitrite (Negative) Urine Bilirubin (Negative) Urine Urobilinogen (Normal) mg/dL Ur Leukocyte Esterase (Negative) Urine Microscopic RBC (0-3) per hpf Urine Microscopic WBC (0-3) per hpf Ur Squamous Epith Cells (None-Few) per lpf Ur Renal Epithelial Cell (None-Few) per hpf Urine Bacteria (None-Few) per hpf Hyaline Casts Urine Mucus (Few) Urine Yeast Ur Oval Fat Bodies (Not Present) Ur Culture Indicated? (NO) Stl C. cayetanensis PCR (Not detect) Stool Rotavirus A PCR (Not detect) Stl Adenov F 40/41 PCR (Not detect) Stool Astrovirus (PCR) (Not detect) Stool Campylobacter PCR (Not detect) Stl C. diff Tox B Gene Negative (Negative) Stl C. diff Tox A/B PCR (Not detect) Stool Cryptosporidium PCR (Not detect) Stl Sh Tox Pr E STEC PCR (Not detect) Stool E coli O157 PCR (Not detect) Stl Enterotoxigenic E PCR (Not detect) Stool EPEC (PCR) (Not detect) Stool EAEC (PCR) (Not detect) Stl E. histolytica PCR (Not detect) Stool Giardia Lamblia PCR (Not detect) Stool Salmonella PCR (Not detect) Stool Sapovirus (PCR) (Not detect) Stl P. shigelloides PCR (Not detect) Stl Shigella/EIEC PCR (Not detect) St Y.enterocolitica PCR (Not detect) Stool Vibrio (PCR) (Not detect) Stl Vibrio cholerae PCR (Not detect) Stl Norovirus GI/GII PCR (Not detect) Stl GI Panel (PCR) Com Chlamy pneumoniae PCR Not Detected (Not Detect) Adenovirus (PCR) Not Detected (Not Detect) B. pertussis DNA (PCR) Not Detected (Not Detect) B.parapertussis DNA PCR Not Detected (Not Detect) Coronavirus OC43 (PCR) Not Detected (Not Detect) Coronavirus HKU1 (PCR) Not Detected (Not Detect) Coronavirus 229E (PCR) Not Detected (Not Detect) Coronavirus NL63 (PCR) Not Detected (Not Detect) Hep Bs Antigen Nonreactive (Nonreactive) Hep Bs Antibody 7.75 mIU/mL Human Metapneumovir PCR Not Detected (Not Detect) Influenza A (H1) PCR Not Detected (Not Detect) Influ A (H1N1/09) PCR Not Detected (Not Detect) Influenza A (H3) PCR Not Detected (Not Detect) Influenza A Untype (PCR) Not Detected (Not Detect) Influenza Type B (PCR) Not Detected (Not Detect) M.pneumoniae DNA (PCR) Not Detected (Not Detect) Parainfluenza 1 (PCR) Not Detected (Not Detect) Parainfluenza 2 (PCR) Not Detected (Not Detect) Parainfluenza 3 (PCR) Not Detected (Not Detect) Parainfluenza 4 (PCR) Not Detected (Not Detect) RSV (PCR) Not Detected (Not Detect) Entero/Rhino (PCR) Not Detected (Not Detect) - Impressions Impressions Abdomen/Pelvis CT 03/25/17 20:00 IMPRESSION: 1. Right lower lobe pulmonary consolidation compatible with pneumonia. 2. Moderate bilateral pleural effusions. 3. No acute abnormality in the abdomen or pelvis to account for the patient's fever. 4. Status post cystectomy and prostatectomy with right lower quadrant ostomy. D/ / 03/25/2017 22:21:08 Austyn Callahan MD / [email or web address] Interpreting Provider: Austyn Callahan MD Chest CT 03/25/17 20:00 IMPRESSION: Slight interval decrease in the multifocal airspace disease bilaterally and the bilateral pleural effusions. D/ / Donovan Sue / Donovan Sue Interpreting Provider: Donovan Sue Exam - Constitutional Vitals: Temp Pulse Resp BP Pulse Ox 98.4 F 102 28 122/55 98 03/26/17 04:23 03/26/17 10:00 03/26/17 10:19 03/26/17 10:19 03/26/17 10:19 - Additional findings Additional findings: General: Cooperative, pleasant, no acute distress HEENT: Normocephalic, atraumatic, neck supple, trachea midline, Conjunctiva pink , sclera anicteric, oral mucosa moist Respiratory: Diffuse rhonchi on auscultation Cardiovascular: Regular rate and rhythm, S1 and S2 present, no murmurs/rubs/ gallops/clicks appreciated GI/abdominal: Nondistended, nontender, soft, normal bowel sounds, no peritoneal signs, PEG tube in place without signs of erythema or inflammation, urostomy in place in right anterior abdomen without signs of erythema or inflammation Extremities: No calf tenderness, noncyanotic, no pedal edema appreciated, warm, lower extremity pulses palpable and symmetrical Neurological: Alert, no facial droop, no focal deficits Skin: Dry, intact, normal color - VTE Documentation of Mechanical Device: Intermittent pneumatic compression device Consult Discharge Plan - Plan Referrals: NONE,PCP [Primary Care Provider] - - Attending Attestation I examined this patient and my medical decision-making was reviewed with the Resident Physician. I agree with the documented findings, disposition and treatment plan as described except to the extent set forth below. Patient seen and examined. Clinically is doing much better. Fever has subsided. WBC improving. No signs of aspiration no residual on the tube feeding. Possible sources are pneumonia with strep pneumo and maybe UTI. Await urine culture, after that we will tailor antibiotics based on the culture results.
--- NOTE | 2017-03-26 11:47 | Pulmonology Progress Note ---
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 Stable vent settings. Pt underwent CPAP trial today, CPAP stopped after 1h 4min due to increased HR/RR agitation and work of breathing. Exacerbation of resp failure likely secondary to MDRO pneumonia being treated with Tobramycin and Cefepime. ID consulted 03/25, continuing treatment for PNA considering potential other sources, ID ordered Legionella antigen (negative), S. pneumoniae antigen (positive), urine culture pending. Would appreciate final antibiotic recommendations from ID in preparation for transfer to [facility] (dialysis chair confirmed at [facility]). Update: will transfer to [facility] today 2N. Qualifiers: Respiratory failure complication: hypoxia Qualified Code(s): J96.21 - Acute and chronic respiratory failure with hypoxia (2) ESRD (end stage renal disease) Current Visit: Yes Status: Acute Following Nephrology. On hemodialysis MWF. [facility] has a dialysis chair available for patient once ready for discharge. Avoiding nephrotoxins, strict I/Os. (3) Pneumonia Current Visit: Yes Status: Acute Wt ct downtrending, now 17.9. MDRO pseudomonas pneumonia sensitive to and being treated with tobramycin and cefepime. Qualifiers: Pneumonia type: due to Pseudomonas Laterality: bilateral Lung location: unspecified part of lung Qualified Code(s): J15.1 - Pneumonia due to Pseudomonas Subjective Principal diagnosis: PEA Arrest Interval history: Pt VSS on trach with vent. Tolerates about an hour on CPAP trial before increased work of breathing, agitation. Nephro and social work have dialysis set up at [facility]. Awaiting final recommendations for ID antibiotics, currently on tobramycin and cefepime with stabilizing white count. Objective PUL Vital signs: Last Vital Signs Temp 98.0 F 03/26/17 11:10 Pulse 102 03/26/17 10:00 Resp 27 03/26/17 11:25 BP 101/86 03/26/17 11:40 Pulse Ox 95 03/26/17 11:25 General appearance: no acute distress, other (trach with vent) Eyes: nonicteric ENT: oropharynx moist Neck: supple Percussion: bilateral: not dull Cardiovascular: regular rate and rhythm (currently mid 90s NSR) Gastrointestinal: soft, non-distended Integumentary: normal Musculoskeletal: no deformities Ventilator Settings Ventilator Settings: Ventilator Settings, Last 8 Hours Ventilator Mode VC+ Ventilator Mode CPAP Ventilator Mode A/C Ventilator Mode A/C Ventilator Mode A/C Ventilator Tidal Volume 500 Setting Ventilator Tidal Volume 500 Setting Ventilator Tidal Volume 500 Setting Ventilator Tidal Volume 500 Setting Ventilator Respiratory Rate 14 Setting Ventilator Respiratory Rate 14 Setting Ventilator Respiratory Rate 14 Setting Ventilator Respiratory Rate 14 Setting Actual Respiratory Rate 25 Actual Respiratory Rate 28 Actual Respiratory Rate 17 Actual Respiratory Rate 24 Actual Respiratory Rate 22 Positive End Expiratory 5 Pressure Positive End Expiratory 5 Pressure Positive End Expiratory 5 Pressure Positive End Expiratory 5 Pressure Positive End Expiratory 5 Pressure Peak Inspiratory Airway 21 Pressure Peak Inspiratory Airway 16 Pressure Peak Inspiratory Airway 29 Pressure Peak Inspiratory Airway 20 Pressure Peak Inspiratory Airway 24 Pressure Results - Laboratory Findings CBC and BMP: 03/26/17 04:48 03/26/17 04:48 ABG ABG pH 7.47 pH Units (7.32-7.45) H 03/25/17 09:01 ABG pCO2 30 mmHg (35-45) L 03/25/17 09:01 ABG pO2 71 mmHg (85-104) L 03/25/17 09:01 ABG O2 Saturation 95 % (95-98) 03/25/17 09:01 PT/INR, D-dimer PT 12.5 Seconds (9.4-12.1) H 03/13/17 13:43 Abnormal lab findings: Abnormal lab results WBC 17.9 K/mcL (4.3-11.1) H 03/26/17 04:48 RBC 2.23 M/mcL (4.19-5.50) L 03/26/17 04:48 Hgb 6.8 g/dL (12.9-16.9) L 03/26/17 04:48 Hct 21.3 % (37.5-50.1) L 03/26/17 04:48 RDW 16.3 % (11.5-14.5) H 03/26/17 04:48 MPV 12.7 fL (9.4-12.4) H 03/26/17 04:48 Neutrophils # 14.5 K/mcL (1.6-8.9) H 03/26/17 04:48 Monocytes # 1.5 K/mcL (0.0-1.3) H 03/26/17 04:48 Nucleated RBCs/100 WBC 0.1 /100 WBC (0) H 03/26/17 04:48 Large Platelets Present (Not Present) A 03/21/17 03:45 Polychromasia 1+ (Not Present) A 03/21/17 03:45 Anisocytosis 1+ (Not Present) A 03/24/17 04:32 Macrocytosis Present (Not Present) A 03/21/17 03:45 PT 12.5 Seconds (9.4-12.1) H 03/13/17 13:43 APTT 36.4 Seconds (26.0-36.0) H 03/13/17 13:43 ABG pH 7.47 pH Units (7.32-7.45) H 03/25/17 09:01 ABG pCO2 30 mmHg (35-45) L 03/25/17 09:01 ABG pO2 71 mmHg (85-104) L 03/25/17 09:01 Chloride 97 mEq/L (98-107) L 03/26/17 04:48 BUN 99 mg/dL (8-23) H 03/26/17 04:48 Creatinine 6.11 mg/dL (0.70-1.30) H 03/26/17 04:48 Est GFR ( Amer) 11 (> 60) L 03/26/17 04:48 Est GFR (Non-Af Amer) 9 (> 60) L 03/26/17 04:48 Glucose 126 mg/dL (70-105) H 03/26/17 04:48 Calculated Osmolality 320 (280-300) H 03/26/17 04:48 Phosphorus 5.1 mg/dL (2.7-4.5) H 03/22/17 03:35 Iron 58 mcg/dL (65-175) L 03/18/17 11:18 Transferrin 125 mg/dL (203-362) L 03/18/17 11:18 AST 42 Units/L (13-39) H 03/26/17 04:48 Alkaline Phosphatase 285 Units/L (34-104) H 03/26/17 04:48 Troponin I 0.07 ng/mL (< 0.04) H* 03/16/17 21:10 B-Natriuretic Peptide 2742 pg/mL (Less than 100) H 03/13/17 22:40 Albumin 3.0 g/dL (3.5-5.7) L 03/26/17 04:48 Globulin 3.6 g/dL (2.4-3.5) H 03/26/17 04:48 Albumin/Globulin Ratio 0.8 (1.1-2.2) L 03/26/17 04:48 Amylase 22 Units/L (29-103) L 03/26/17 04:48 25-OH Vitamin D Total 24 ng/mL (30-80) L 03/18/17 11:18 Folate 43.0 ng/mL (3.0-16.0) H 03/18/17 11:18 PTH Intact 395.7 pg/ml (10.0-65.0) H 03/18/17 11:18 Ur Specimen Adequacy See below A 03/25/17 18:45 Urine Clarity Turbid (Clear) A 03/25/17 18:45 Urine pH >=9.0 pH Units (5.0-8.0) H 03/25/17 18:45 Urine Protein >=300 mg/dL (Neg-Trace) H 03/25/17 18:45 Urine Blood Moderate (Negative) H 03/25/17 18:45 Urine Bilirubin Small (Negative) H 03/25/17 18:45 Ur Leukocyte Esterase Large (Negative) H 03/25/17 18:45 Urine Microscopic WBC TNTC per hpf (0-3) H 03/25/17 18:45 Urine Bacteria Many per hpf (None-Few) H 03/25/17 18:45 Urine Mucus Many (Few) H 03/25/17 18:45 Urine Yeast Many per hpf (None Seen) H 03/25/17 18:45 Ur Oval Fat Bodies Present (Not Present) A 03/25/17 18:45 Tobramycin Trough 4.4 mcg/mL (0-2.0) H 03/25/17 04:34 Digoxin 0.5 ng/mL (0.8-2.0) L 03/13/17 13:43 Phenytoin 4.3 mcg/mL (10.0-20.0) L 03/15/17 04:12 Free Phenytoin 0.8 ug/mL (1.0-2.5) L 03/15/17 04:12 Total Phenytoin 5.2 ug/mL (10.0-20.0) L 03/15/17 04:12 Percent Free Phenytoin 15.4 % (8.0-14.0) H 03/15/17 04:12 Valproic Acid 14 mcg/mL (50-100) L 03/13/17 13:43 - Microbiology Findings Microbiology Findings: Microbiology, Last 48 Hours 03/21/17 10:37 Blood Culture - Final Peripheral Venipuncture No growth. 03/25/17 18:45 Legionella Antigen - Final Urine,[place] Streptococcus pneumoniae Antigen (M - Final 03/25/17 18:20 Influenza Types A,B Antigen (MIKAELA) - Final Nasopharyngeal 03/18/17 13:20 Blood Culture - Final Peripheral Venipuncture No growth. 03/18/17 13:20 Blood Culture - Final Peripheral Venipuncture No growth. - Clinical Findings Intake & Output: Intake & Output 03/25/17 03/26/17 03/26/17 23:59 07:59 15:59 Intake Total 329 / 329 443 / 443 753 / 753 Output Total 2881 / 2881 0 / 0 0 / 0 Balance -2552 / -2552 443 / 443 753 / 753 - VTE Documentation of Mechanical Device: Intermittent pneumatic compression device Consult Discharge Plan - Plan Referrals: NONE,PCP [Primary Care Provider] - <Surendra Taveras - Last Filed: 03/26/17 16:48> Date of Encounter: 03/26/17 Assessment and Plan (1) Acute and chronic respiratory failure Current Visit: Yes Status: Chronic Qualifiers: Respiratory failure complication: hypoxia Qualified Code(s): J96.21 - Acute and chronic respiratory failure with hypoxia (2) Pneumonia Current Visit: Yes Status: Acute Qualifiers: Pneumonia type: due to Pseudomonas Laterality: bilateral Lung location: unspecified part of lung Qualified Code(s): J15.1 - Pneumonia due to Pseudomonas (3) ESRD (end stage renal disease) on dialysis Current Visit: No Status: Chronic Objective PUL Vital signs: Last Vital Signs Temp 98.5 F 03/26/17 13:50 Pulse 95 03/26/17 15:49 Resp 21 03/26/17 15:51 BP 110/52 03/26/17 15:51 Pulse Ox 93 03/26/17 15:51 Ventilator Settings Ventilator Settings: Ventilator Settings, Last 8 Hours Ventilator Mode VC+ Ventilator Mode VC+ Ventilator Mode VC+ Ventilator Mode CPAP Ventilator Tidal Volume 500 Setting Ventilator Tidal Volume 500 Setting Ventilator Tidal Volume 500 Setting Ventilator Respiratory Rate 14 Setting Ventilator Respiratory Rate 14 Setting Ventilator Respiratory Rate 14 Setting Actual Respiratory Rate 20 Actual Respiratory Rate 15 Actual Respiratory Rate 25 Actual Respiratory Rate 28 Positive End Expiratory 5 Pressure Positive End Expiratory 5 Pressure Positive End Expiratory 5 Pressure Positive End Expiratory 5 Pressure Peak Inspiratory Airway 21 Pressure Peak Inspiratory Airway 21 Pressure Peak Inspiratory Airway 21 Pressure Peak Inspiratory Airway 16 Pressure Results - Laboratory Findings CBC and BMP: 03/26/17 04:48 03/26/17 04:48 ABG ABG pH 7.47 pH Units (7.32-7.45) H 03/25/17 09:01 ABG pCO2 30 mmHg (35-45) L 03/25/17 09:01 ABG pO2 71 mmHg (85-104) L 03/25/17 09:01 ABG O2 Saturation 95 % (95-98) 03/25/17 09:01 PT/INR, D-dimer PT 12.5 Seconds (9.4-12.1) H 03/13/17 13:43 Abnormal lab findings: Abnormal lab results WBC 17.9 K/mcL (4.3-11.1) H 03/26/17 04:48 RBC 2.23 M/mcL (4.19-5.50) L 03/26/17 04:48 Hgb 6.8 g/dL (12.9-16.9) L 03/26/17 04:48 Hct 21.3 % (37.5-50.1) L 03/26/17 04:48 RDW 16.3 % (11.5-14.5) H 03/26/17 04:48 MPV 12.7 fL (9.4-12.4) H 03/26/17 04:48 Neutrophils # 14.5 K/mcL (1.6-8.9) H 03/26/17 04:48 Monocytes # 1.5 K/mcL (0.0-1.3) H 03/26/17 04:48 Nucleated RBCs/100 WBC 0.1 /100 WBC (0) H 03/26/17 04:48 Large Platelets Present (Not Present) A 03/21/17 03:45 Polychromasia 1+ (Not Present) A 03/21/17 03:45 Anisocytosis 1+ (Not Present) A 03/24/17 04:32 Macrocytosis Present (Not Present) A 03/21/17 03:45 PT 12.5 Seconds (9.4-12.1) H 03/13/17 13:43 APTT 36.4 Seconds (26.0-36.0) H 03/13/17 13:43 ABG pH 7.47 pH Units (7.32-7.45) H 03/25/17 09:01 ABG pCO2 30 mmHg (35-45) L 03/25/17 09:01 ABG pO2 71 mmHg (85-104) L 03/25/17 09:01 Chloride 97 mEq/L (98-107) L 03/26/17 04:48 BUN 99 mg/dL (8-23) H 03/26/17 04:48 Creatinine 6.11 mg/dL (0.70-1.30) H 03/26/17 04:48 Est GFR ( Amer) 11 (> 60) L 03/26/17 04:48 Est GFR (Non-Af Amer) 9 (> 60) L 03/26/17 04:48 Glucose 126 mg/dL (70-105) H 03/26/17 04:48 Calculated Osmolality 320 (280-300) H 03/26/17 04:48 Phosphorus 5.1 mg/dL (2.7-4.5) H 03/22/17 03:35 Iron 58 mcg/dL (65-175) L 03/18/17 11:18 Transferrin 125 mg/dL (203-362) L 03/18/17 11:18 AST 42 Units/L (13-39) H 03/26/17 04:48 Alkaline Phosphatase 285 Units/L (34-104) H 03/26/17 04:48 Troponin I 0.07 ng/mL (< 0.04) H* 03/16/17 21:10 B-Natriuretic Peptide 2742 pg/mL (Less than 100) H 03/13/17 22:40 Albumin 3.0 g/dL (3.5-5.7) L 03/26/17 04:48 Globulin 3.6 g/dL (2.4-3.5) H 03/26/17 04:48 Albumin/Globulin Ratio 0.8 (1.1-2.2) L 03/26/17 04:48 Amylase 22 Units/L (29-103) L 03/26/17 04:48 25-OH Vitamin D Total 24 ng/mL (30-80) L 03/18/17 11:18 Folate 43.0 ng/mL (3.0-16.0) H 03/18/17 11:18 PTH Intact 395.7 pg/ml (10.0-65.0) H 03/18/17 11:18 Ur Specimen Adequacy See below A 03/25/17 18:45 Urine Clarity Turbid (Clear) A 03/25/17 18:45 Urine pH >=9.0 pH Units (5.0-8.0) H 03/25/17 18:45 Urine Protein >=300 mg/dL (Neg-Trace) H 03/25/17 18:45 Urine Blood Moderate (Negative) H 03/25/17 18:45 Urine Bilirubin Small (Negative) H 03/25/17 18:45 Ur Leukocyte Esterase Large (Negative) H 03/25/17 18:45 Urine Microscopic WBC TNTC per hpf (0-3) H 03/25/17 18:45 Urine Bacteria Many per hpf (None-Few) H 03/25/17 18:45 Urine Mucus Many (Few) H 03/25/17 18:45 Urine Yeast Many per hpf (None Seen) H 03/25/17 18:45 Ur Oval Fat Bodies Present (Not Present) A 03/25/17 18:45 Tobramycin Trough 4.4 mcg/mL (0-2.0) H 03/25/17 04:34 Digoxin 0.5 ng/mL (0.8-2.0) L 03/13/17 13:43 Phenytoin 4.3 mcg/mL (10.0-20.0) L 03/15/17 04:12 Free Phenytoin 0.8 ug/mL (1.0-2.5) L 03/15/17 04:12 Total Phenytoin 5.2 ug/mL (10.0-20.0) L 03/15/17 04:12 Percent Free Phenytoin 15.4 % (8.0-14.0) H 03/15/17 04:12 Valproic Acid 14 mcg/mL (50-100) L 03/13/17 13:43 - Microbiology Findings Microbiology Findings: Microbiology, Last 48 Hours 03/21/17 10:37 Blood Culture - Final Peripheral Venipuncture No growth. 03/25/17 18:45 Legionella Antigen - Final Urine,[place] Streptococcus pneumoniae Antigen (M - Final 03/25/17 18:20 Influenza Types A,B Antigen (MIKAELA) - Final Nasopharyngeal - Clinical Findings Intake & Output: Intake & Output 03/26/17 03/26/17 03/26/17 07:59 15:59 23:59 Intake Total 443 / 443 1817 / 1817 100 / 100 Output Total 0 / 0 1950 / 1950 Balance 443 / 443 -133 / -133 100 / 100 - Attending Attestation I examined this patient and my medical decision-making was reviewed with the Resident Physician. I agree with the documented findings, disposition and treatment plan as described except to the extent set forth below. Patient seen and examined. Labs, radiology, chart personally reviewed. Agree with resident's history and physical, assessment, plan with following comments: FUELER: Patient follows commands, has neuro deficits in the left side which is old Pulmonary: Acceptable oxygenation and ventilation. This is chronic and and not tolerating weaning from the ventilator Cardiovascular: stable GI: Nutrition per dietary and GI prophylaxis per routine Heme: DVT prophylaxis per routine ID: Continue antibiotics and plan to de-escalation. Appreciate infectious disease input and plan for discharge when more stable Renal; patient on hemodialysis Endorcine: blood glucose is monitored Lines: all lines checked and no evidence of infections Skin: skin care to prevent pressure ulcers per nursing routine care Overall poor prognosis and medical social worker working with the team regarding the transfer to long-term facility.
[2017-03-26] MEDS ORDERED: 0.9 % Sodium Chloride 250 ML ONE (11:57)
--- NOTE | 2017-03-26 16:57 | Nephrology Progress Note ---
Date of Encounter: 03/26/17 Time of Encounter: 12:10 - Assessment and Plan (1) ESRD (end stage renal disease) on dialysis Current Visit: No Status: Chronic ESRD on HD changing to a TTS schedule, will tentatively plan for HD today ( Saturday) to reset him to the new schedule. Anema. s/p Aranesp yesterday at the weekly dosing. Goal Hgb 10-11. Will arrange for PRBC 1 unit of transfusion today. Apparantly this was occurring every few weeks when he was a [facility]. He'll need ZENA as an ongoing titration after discharge. I will defer any GI work up, if indicated, to the primary team. MBD-CKD: using a lower Ca bath (2 instead of 2.5) d/t a mildly elevated serum Ca. He has SHPT and using Ergo would not be advisable d/t the mild hypercalcemia. Recommended changing him to Sensipar which could help the elevated iPTH and the serum Ca. However this med may be limited d/t his trach and swallow function. HTN/Volume status: He has been having intradialytic hypotension. Aiming for 1-2 kg of UF today as tolerated. Will cont efforts at UF as his BPs allow. May need midodrine at some point. Monitor his hx of b/l effusions. Access: LUE AVF, and working well. He is planning to d/c to an ECF called [facility], which has a private dialysis unit with Dr. Mohr's group. Yesterday, I spoke with his team that this pt was to discharge soon to [facility] for a courtesy update. (2) Hypertension Current Visit: Yes Status: Acute Qualifiers: Hypertension type: unspecified Qualified Code(s): I10 - Essential (primary ) hypertension (3) Hyperphosphatemia Current Visit: No Status: Acute Subjective Principal diagnosis: PEA Arrest Interval history: Pt was seen/examined while on HD. He did not affirm N/V or cramping during his treatment (he used head shaking to deny these symptoms); otherwise his trach limited further subjective history. Objective - Vital Signs Vital signs: Vital Signs Temp Pulse Resp BP Pulse Ox 03/26/17 15:51 21 110/52 93 03/26/17 15:49 95 03/26/17 15:00 94 18 120/46 99 03/26/17 14:00 92 20 117/67 96 0218 13:50 98.5 F 15 120/47 0218 13:40 15 94/50 100 0218 13:25 106/45 0218 13:10 100/38 0218 13:00 94 24 100/38 95 0218 12:55 112/52 02 12:40 98.8 F 96 18 114/72 98 02 12:25 91/43 02 12:20 99.1 F 95 19 90/54 100 02 12:10 111/56 03/26/17 12:05 98.5 F 94 14 91/55 100 03/26/17 12:00 98.5 F 92 26 91/55 96 03/26/17 11:55 102/74 02 11:40 101/86 03/26/17 11:25 27 108/49 95 03/26/17 11:10 98.0 F 21 120/44 02 11:00 92 23 119/46 100 03/26/17 10:19 28 122/55 98 03/26/17 10:00 102 42 122/55 99 03/26/17 09:14 28 114/45 96 03/26/17 09:00 100 20 114/45 98 03/26/17 08:21 18 95 03/26/17 08:00 100 19 117/49 93 03/26/17 07:00 100 22 122/46 92 03/26/17 06:00 97 22 99/44 99 03/26/17 05:40 24 100 03/26/17 05:00 98 25 95/82 99 03/26/17 04:23 98.4 F 02 04:00 98 22 86/62 99 03/26/17 03:21 15 108/47 99 03/26/17 03:00 90 22 108/47 99 02 02:00 92 22 86/50 98 03/26/17 01:11 22 100/54 94 03/26/17 01:00 92 18 100/54 98 03/26/17 00:00 99.5 F 92 18 126/114 98 03/25/17 23:35 21 103/48 98 03/25/17 23:00 89 17 117/45 98 03/25/17 22:00 104 20 119/60 97 03/25/17 21:45 19 97 03/25/17 21:05 14 100 03/25/17 21:00 112 18 117/55 96 03/25/17 20:30 99.5 F 03/25/17 20:00 116 20 106/55 97 03/25/17 19:35 34 110/63 91 03/25/17 19:00 112 25 110/63 90 03/25/17 18:44 25 100 03/25/17 18:05 98.8 F 12 115/47 03/25/17 18:00 106 23 118/50 100 03/25/17 17:50 102/47 03/25/17 17:35 114/54 03/25/17 17:33 31 114/54 100 03/25/17 17:20 98/53 03/25/17 17:15 109 31 98/53 100 03/25/17 17:05 87/55 Intake and Output 03/26/17 03/26/17 03/26/17 07:59 15:59 23:59 Intake Total 443 / 443 1817 / 1817 100 / 100 Output Total 0 / 0 1949 / 1949 Balance 443 / 443 -133 / -133 100 / 100 Intake: IV Fluids 100 / 100 103 / 103 100 / 100 Zosyn 3.375 GM In 0.9 % Sodium 100 / 100 100 / 100 Chloride 100 ML @ 25 mls/hr IVPB Q12H [facility] Rx#:[id number] Tobramycin Sulf 120 MG In 103 / 103 Dextrose 5% 100 ML @ 103 mls/hr IVPB MoWeFr [facility] Rx#:[id number] Oral 0 / 0 Tube Feeding 343 / 343 364 / 364 Blood Product 700 / 700 Rbcs Leuko Poor As-3 2nd Unit 700 / 700 [id number] Intake, Rinseback and Flushes 600 / 600 Free Water Intake Amount 50 / 50 Output: Urine 0 / 0 Stool 0 / 0 Total Dialysis (HD) Output 1949 Rectal Tube 0 / 0 Urostomy 0 / 0 0 / 0 Other: Blood Glucose* 111 101 Hemodialysis Net Fluid Removed 1000 (mL) - General Appearance General appearance: Present: cachectic, chronically ill, fatigue, frail EENT: Present: PERRL, mucous membranes moist Additional Comments: Trached Neck: Present: supple Respiratory: Present: clear Cardiology: Present: no edema, regular rate, regular rhythm, normal S1, normal S2 Dialysis Vascular Access: Arteriovenous Fistula (LUE) thrill: Yes bruit: Yes Gastrointestinal: Present: no tenderness, no guarding Integumentary: Present: warm and dry Neurologic: Present: no asterixis Musculoskeletal: Present: no erythema, no cyanosis Psychiatric: Present: mood/affect appropriate, cooperative - Lab 03/26/17 04:48 03/26/17 04:48 Most recent lab results ABG pH 7.47 pH Units (7.32-7.45) H 03/25/17 09:01 ABG pCO2 30 mmHg (35-45) L 03/25/17 09:01 ABG pO2 71 mmHg (85-104) L 03/25/17 09:01 ABG HCO3 21 mEq/L (21-27) 03/25/17 09:01 ABG O2 Saturation 95 % (95-98) 03/25/17 09:01 Calcium 9.5 mg/dL (8.6-10.3) 03/26/17 04:48 Phosphorus 5.1 mg/dL (2.7-4.5) H 03/22/17 03:35 Magnesium 2.3 mg/dL (1.6-2.6) 03/25/17 04:34 - VTE Documentation of Mechanical Device: Intermittent pneumatic compression device Consult Discharge Plan - Plan Referrals: NONE,PCP [Primary Care Provider] -
[2017-03-26] MEDS ORDERED: hydrALAZINE 25 MG TABLET GTUBE SCH (18:10)
[2017-03-26] MEDS ORDERED: Albuterol 2.5 MG/3 ML NEBULIZER IH PRN (18:10)
[2017-03-26] MEDS ORDERED: DEXTROSE PO PRN (18:10)
[2017-03-26] MEDS ORDERED: clonazePAM 0.5 MG TABLET GTUBE PRN (18:10)
[2017-03-26] MEDS ORDERED: METOPROLOL TARTRATE IV SCH (18:10)
[2017-03-26] MEDS ORDERED: Dextrose Gel 15 GM/37.5 ML TUBE PO PRN ×4 (18:10→19:51)
[2017-03-26] MEDS ORDERED: NON-FORMULARY MEDICATION 1 EACH EACH (Ondansetron Hcl [Zofran] 4 MG) PO PRN (18:10)
[2017-03-26] MEDS ORDERED: Dexmedetomidine HCl 200 MCG/50 ML MLS IVC SCH (18:10)
[2017-03-26] MEDS ORDERED: D5% in Water 1,000 ML IVC PRN (18:10)
[2017-03-26] MEDS ORDERED: Aminoglycoside Consult 1 EACH MC PRN (18:10)
[2017-03-26] MEDS ORDERED: Nitroglycerin 0.4 MG TAB.SUBL SL PRN (18:10)
[2017-03-26] MEDS ORDERED: *HR* Dextrose 50 % in Water (Syg) 50 ML SYRINGE IVP PRN (18:10)
[2017-03-26] MEDS ORDERED: FentaNYL (PF) 1,000 MCG in 0.9 % Sodium Chloride 80 ML IVC SCH (18:10)
[2017-03-26] MEDS ORDERED: CloNIDine Patch 0.3 MG PATCH (WEEKLY) TD SCH (18:10)
[2017-03-26] MEDS ORDERED: Ondansetron 4 MG/2 ML VIAL IVP PRN (18:10)
[2017-03-26] MEDS ORDERED: [UNRECOGNIZED DRUG - OTHER] PO PRN (18:10)
[2017-03-26] MEDS ORDERED: Ipratropium/Albuterol Neb 3 ML IH PRN (18:10)
[2017-03-26] MEDS ORDERED: *HR* FentaNYL (PF) 100 MCG/2 ML VIAL IVP PRN (18:10)
[2017-03-26] MEDS ORDERED: Valproic Acid 250 MG CAPSULE PO SCH (21:00)
[2017-03-26] MEDS: dilTIAZem HCl 60 MG TABLET PO SCH (23:21)
[2017-03-26] MEDS: Valproic Acid Oral Soln 250 MG/5 ML UDC GTUBE SCH (23:21)
--- NOTE | 2017-03-27 01:42 | Pulmonology Progress Note ---
Date of Encounter: 03/27/17 Time of Encounter: 01:39 Subjective Principal diagnosis: PEA Arrest Interval history: Patient returns from the OR intubated. He had colonic bowel perforation with portions of his cecum necrotic. He arrives with open abdomen with wound vac. GI antibiotic coverage: Meropenem, vancomycin Sacral decubitus ulcers with necrosis: Santyl covered with moistened 4x4 gauze on top. Candicia of pannus, groin, scrotum: nystatin powder BID BLE edema: JANINE wrap with EPCD overlying for DVT prophylaxis. Objective PUL Vital signs: Last Vital Signs Temp 100.3 F H 03/27/17 00:30 Pulse 108 03/27/17 00:00 Resp 23 03/27/17 01:10 BP 96/45 03/27/17 01:10 Pulse Ox 94 03/27/17 01:10 Ventilator Settings Ventilator Settings: Ventilator Settings, Last 8 Hours Ventilator Mode VC+ Ventilator Mode VC+ Ventilator Mode VC+ Ventilator Mode VC+ Ventilator Tidal Volume 500 Setting Ventilator Tidal Volume 500 Setting Ventilator Tidal Volume 500 Setting Ventilator Tidal Volume 500 Setting Ventilator Respiratory Rate 14 Setting Ventilator Respiratory Rate 14 Setting Ventilator Respiratory Rate 14 Setting Ventilator Respiratory Rate 14 Setting Actual Respiratory Rate 22 Actual Respiratory Rate 25 Actual Respiratory Rate 21 Actual Respiratory Rate 21 Positive End Expiratory 5 Pressure Positive End Expiratory 5 Pressure Positive End Expiratory 5 Pressure Positive End Expiratory 5 Pressure Peak Inspiratory Airway 18 Pressure Peak Inspiratory Airway 23 Pressure Peak Inspiratory Airway 17 Pressure Peak Inspiratory Airway 225 Pressure Results - Laboratory Findings CBC and BMP: 03/26/17 04:48 03/26/17 04:48 ABG ABG pH 7.47 pH Units (7.32-7.45) H 03/25/17 09:01 ABG pCO2 30 mmHg (35-45) L 03/25/17 09:01 ABG pO2 71 mmHg (85-104) L 03/25/17 09:01 ABG O2 Saturation 95 % (95-98) 03/25/17 09:01 PT/INR, D-dimer PT 12.5 Seconds (9.4-12.1) H 03/13/17 13:43 Abnormal lab findings: Abnormal lab results WBC 17.9 K/mcL (4.3-11.1) H 03/26/17 04:48 RBC 2.23 M/mcL (4.19-5.50) L 03/26/17 04:48 Hgb 6.8 g/dL (12.9-16.9) L 03/26/17 04:48 Hct 21.3 % (37.5-50.1) L 03/26/17 04:48 RDW 16.3 % (11.5-14.5) H 03/26/17 04:48 MPV 12.7 fL (9.4-12.4) H 03/26/17 04:48 Neutrophils # 14.5 K/mcL (1.6-8.9) H 03/26/17 04:48 Monocytes # 1.5 K/mcL (0.0-1.3) H 03/26/17 04:48 Nucleated RBCs/100 WBC 0.1 /100 WBC (0) H 03/26/17 04:48 Large Platelets Present (Not Present) A 03/21/17 03:45 Polychromasia 1+ (Not Present) A 03/21/17 03:45 Anisocytosis 1+ (Not Present) A 03/24/17 04:32 Macrocytosis Present (Not Present) A 03/21/17 03:45 PT 12.5 Seconds (9.4-12.1) H 03/13/17 13:43 APTT 36.4 Seconds (26.0-36.0) H 03/13/17 13:43 ABG pH 7.47 pH Units (7.32-7.45) H 03/25/17 09:01 ABG pCO2 30 mmHg (35-45) L 03/25/17 09:01 ABG pO2 71 mmHg (85-104) L 03/25/17 09:01 Chloride 97 mEq/L (98-107) L 03/26/17 04:48 BUN 99 mg/dL (8-23) H 03/26/17 04:48 Creatinine 6.11 mg/dL (0.70-1.30) H 03/26/17 04:48 Est GFR ( Amer) 11 (> 60) L 03/26/17 04:48 Est GFR (Non-Af Amer) 9 (> 60) L 03/26/17 04:48 Glucose 126 mg/dL (70-105) H 03/26/17 04:48 Calculated Osmolality 320 (280-300) H 03/26/17 04:48 Phosphorus 5.1 mg/dL (2.7-4.5) H 03/22/17 03:35 Iron 58 mcg/dL (65-175) L 03/18/17 11:18 Transferrin 125 mg/dL (203-362) L 03/18/17 11:18 AST 42 Units/L (13-39) H 03/26/17 04:48 Alkaline Phosphatase 285 Units/L (34-104) H 03/26/17 04:48 Troponin I 0.07 ng/mL (< 0.04) H* 03/16/17 21:10 B-Natriuretic Peptide 2742 pg/mL (Less than 100) H 03/13/17 22:40 Albumin 3.0 g/dL (3.5-5.7) L 03/26/17 04:48 Globulin 3.6 g/dL (2.4-3.5) H 03/26/17 04:48 Albumin/Globulin Ratio 0.8 (1.1-2.2) L 03/26/17 04:48 Amylase 22 Units/L (29-103) L 03/26/17 04:48 25-OH Vitamin D Total 24 ng/mL (30-80) L 03/18/17 11:18 Folate 43.0 ng/mL (3.0-16.0) H 03/18/17 11:18 PTH Intact 395.7 pg/ml (10.0-65.0) H 03/18/17 11:18 Ur Specimen Adequacy See below A 03/25/17 18:45 Urine Clarity Turbid (Clear) A 03/25/17 18:45 Urine pH >=9.0 pH Units (5.0-8.0) H 03/25/17 18:45 Urine Protein >=300 mg/dL (Neg-Trace) H 03/25/17 18:45 Urine Blood Moderate (Negative) H 03/25/17 18:45 Urine Bilirubin Small (Negative) H 03/25/17 18:45 Ur Leukocyte Esterase Large (Negative) H 03/25/17 18:45 Urine Microscopic WBC TNTC per hpf (0-3) H 03/25/17 18:45 Urine Bacteria Many per hpf (None-Few) H 03/25/17 18:45 Urine Mucus Many (Few) H 03/25/17 18:45 Urine Yeast Many per hpf (None Seen) H 03/25/17 18:45 Ur Oval Fat Bodies Present (Not Present) A 03/25/17 18:45 Tobramycin Trough 4.4 mcg/mL (0-2.0) H 03/25/17 04:34 Digoxin 0.5 ng/mL (0.8-2.0) L 03/13/17 13:43 Phenytoin 4.3 mcg/mL (10.0-20.0) L 03/15/17 04:12 Free Phenytoin 0.8 ug/mL (1.0-2.5) L 03/15/17 04:12 Total Phenytoin 5.2 ug/mL (10.0-20.0) L 03/15/17 04:12 Percent Free Phenytoin 15.4 % (8.0-14.0) H 03/15/17 04:12 Valproic Acid 14 mcg/mL (50-100) L 03/13/17 13:43 - Microbiology Findings Microbiology Findings: Microbiology, Last 48 Hours 03/21/17 10:37 Blood Culture - Final Peripheral Venipuncture No growth. 03/25/17 18:45 Legionella Antigen - Final Urine,[place] Streptococcus pneumoniae Antigen (M - Final 03/25/17 18:20 Influenza Types A,B Antigen (MIKAELA) - Final Nasopharyngeal - Clinical Findings Intake & Output: Intake & Output 03/26/17 03/26/17 03/27/17 15:59 23:59 07:59 Intake Total 1817 / 1817 100 / 100 Output Total 1950 / 1950 155 / 155 0 / 0 Balance -133 / -133 -55 / -55 0 / 0 - VTE Documentation of Mechanical Device: Intermittent pneumatic compression device Consult Discharge Plan - Plan Referrals: NONE,PCP [Primary Care Provider] -
[2017-03-27] MEDS ORDERED: Nystatin POWDER 30 GM BOTTLE TP SCH (01:45)
[2017-03-27] MEDS: Insulin LISPRO 300 UNITS/3 ML VIAL SQ SCH ×6 (02:09→20:29)
[2017-03-27] MEDS: Ipratropium/Albuterol Neb 3 ML IH SCH ×4 (04:00→21:51)
[2017-03-27] MEDS: *HR* Heparin 5,000 UNIT/ML VIAL SQ SCH ×3 (05:08→20:26)
[2017-03-27] MEDS: amLODIPine 5 MG TABLET GTUBE SCH (08:39)
[2017-03-27] MEDS: dilTIAZem HCl 60 MG TABLET PO SCH (08:39)
[2017-03-27] MEDS: *HR* Amiodarone 200 MG TABLET GTUBE SCH (08:41)
[2017-03-27] MEDS: Valproic Acid Oral Soln 250 MG/5 ML UDC GTUBE SCH ×2 (08:41→20:25)
[2017-03-27] MEDS: Pantoprazole 40 MG VIAL IVP SCH (08:41)
[2017-03-27] MEDS: Chlorhexidine Rinse 15 ML MOUTHWASH MM SCH ×2 (08:41→20:26)
[2017-03-27] MEDS ORDERED: LANSOPRAZOLE GTUBE SCH (09:00)
[2017-03-27] MEDS ORDERED: *HR* Amiodarone 200 MG TABLET PO SCH (09:00)
[2017-03-27] MEDS: Leptospermum Honey Gel 44 ML TUBE TP SCH ×2 (09:50→20:27)
[2017-03-27] MEDS: Insulin DETEMIR 100 UNIT/ML X5UNITS SQ SCH (09:50)
[2017-03-27] MEDS: Miconazole w/zinc oxide&karaya 92 APPL/92 GM TUBE TP SCH ×2 (09:51→20:27)
[2017-03-27 10:10] LABS: Basophils # 0.1 K/mcL (0.0-0.2); Basophils % 0.7 %; Eosinophils # 0.4 K/mcL (0.0-0.6); Eosinophils % 3.2 %; Hematocrit 26.2 % (37.5-50.1); Hemoglobin 8.2 g/dL (12.9-16.9); Immature Granulocytes % 3.1 % (0-4); Lymphocytes % 6.9 %; Mean Corpuscular HGB Conc 31.3 g/dL (31.6-35.5); Mean Corpuscular Hemoglobin 29.4 pg (28.0-33.3); Mean Corpuscular Volume 93.9 fL (83.0-100.0); Mean Platelet Volume 12.4 fL (9.4-12.4); Monocytes # 1.6 K/mcL (0.0-1.3); Monocytes % 11.3 %; Neutrophils # 10.2 K/mcL (1.6-8.9); Platelet Count 340 K/mcL (140-400); Red Blood Count 2.79 M/mcL (4.19-5.50); Red Cell Distribution Width 17.4 % (11.5-14.5); Segmented Neutrophils % 74.8 %
[2017-03-27] MEDS ORDERED: Albumin 25% 25gram/100mL 50 GM/200 ML IV.SOLN ONE (10:12)
[2017-03-27 10:30] LABS: Calcium 9.8 mg/dL (8.6-10.3); Potassium 4.1 mEq/L (3.5-5.1)
[2017-03-27] MEDS: Albumin 25% 25gram/100mL 25 GM/100 ML IV.SOLN IVC SCH ×2 (10:50→12:35)
--- NOTE | 2017-03-27 10:58 | Pulmonology Progress Note ---
<MallikaSurendra zaragoza M - Last Filed: 03/27/17 11:54> Date of Encounter: 03/27/17 Time of Encounter: 07:00 Assessment and Plan (1) Acute and chronic respiratory failure Current Visit: Yes Status: Chronic Qualifiers: Respiratory failure complication: hypoxia Qualified Code(s): J96.21 - Acute and chronic respiratory failure with hypoxia (2) Pneumonia Current Visit: Yes Status: Acute Qualifiers: Pneumonia type: due to Pseudomonas Laterality: bilateral Lung location: unspecified part of lung Qualified Code(s): J15.1 - Pneumonia due to Pseudomonas (3) ESRD (end stage renal disease) on dialysis Current Visit: No Status: Chronic Objective PUL Vital signs: Last Vital Signs Temp 98.9 F 03/27/17 08:00 Pulse 96 03/27/17 08:50 Resp 15 03/27/17 11:01 BP 110/53 03/27/17 07:29 Pulse Ox 100 03/27/17 11:01 Ventilator Settings Ventilator Settings: Ventilator Settings, Last 8 Hours Ventilator Mode VC+ Ventilator Mode VC+ Ventilator Mode VC+ Ventilator Mode VC+ Ventilator Mode VC+ Ventilator Tidal Volume 500 Setting Ventilator Tidal Volume 500 Setting Ventilator Tidal Volume 500 Setting Ventilator Tidal Volume 500 Setting Ventilator Tidal Volume 500 Setting Ventilator Respiratory Rate 14 Setting Ventilator Respiratory Rate 14 Setting Ventilator Respiratory Rate 18 Setting Ventilator Respiratory Rate 14 Setting Ventilator Respiratory Rate 14 Setting Actual Respiratory Rate 16 Actual Respiratory Rate 29 Actual Respiratory Rate 18 Actual Respiratory Rate 20 Actual Respiratory Rate 15 Positive End Expiratory 5 Pressure Positive End Expiratory 5 Pressure Positive End Expiratory 5 Pressure Positive End Expiratory 5 Pressure Positive End Expiratory 5 Pressure Peak Inspiratory Airway 22 Pressure Peak Inspiratory Airway 18 Pressure Peak Inspiratory Airway 23 Pressure Peak Inspiratory Airway 26 Pressure Peak Inspiratory Airway 20 Pressure Results - Laboratory Findings CBC and BMP: 03/27/17 09:56 03/27/17 09:56 ABG ABG pH 7.47 pH Units (7.32-7.45) H 03/25/17 09:01 ABG pCO2 30 mmHg (35-45) L 03/25/17 09:01 ABG pO2 71 mmHg (85-104) L 03/25/17 09:01 ABG O2 Saturation 95 % (95-98) 03/25/17 09:01 PT/INR, D-dimer PT 12.5 Seconds (9.4-12.1) H 03/13/17 13:43 Abnormal lab findings: Abnormal lab results WBC 13.7 K/mcL (4.3-11.1) H 03/27/17 09:56 RBC 2.79 M/mcL (4.19-5.50) L 03/27/17 09:56 Hgb 8.2 g/dL (12.9-16.9) L 03/27/17 09:56 Hct 26.2 % (37.5-50.1) L 03/27/17 09:56 MCHC 31.3 g/dL (31.6-35.5) L 03/27/17 09:56 RDW 17.4 % (11.5-14.5) H 03/27/17 09:56 Neutrophils # 10.2 K/mcL (1.6-8.9) H 03/27/17 09:56 Monocytes # 1.6 K/mcL (0.0-1.3) H 03/27/17 09:56 Nucleated RBCs/100 WBC 0.1 /100 WBC (0) H 03/26/17 04:48 Large Platelets Present (Not Present) A 03/21/17 03:45 Polychromasia 1+ (Not Present) A 03/21/17 03:45 Anisocytosis 1+ (Not Present) A 03/24/17 04:32 Macrocytosis Present (Not Present) A 03/21/17 03:45 PT 12.5 Seconds (9.4-12.1) H 03/13/17 13:43 APTT 36.4 Seconds (26.0-36.0) H 03/13/17 13:43 ABG pH 7.47 pH Units (7.32-7.45) H 03/25/17 09:01 ABG pCO2 30 mmHg (35-45) L 03/25/17 09:01 ABG pO2 71 mmHg (85-104) L 03/25/17 09:01 Chloride 96 mEq/L (98-107) L 03/27/17 09:56 BUN 105 mg/dL (8-23) H 03/27/17 09:56 Creatinine 6.49 mg/dL (0.70-1.30) H 03/27/17 09:56 Est GFR ( Amer) 10 (> 60) L 03/27/17 09:56 Est GFR (Non-Af Amer) 9 (> 60) L 03/27/17 09:56 Glucose 144 mg/dL (70-105) H 03/27/17 09:56 POC Glucose 228 (58-89) H 03/27/17 00:46 Calculated Osmolality 324 (280-300) H 03/27/17 09:56 Phosphorus 5.1 mg/dL (2.7-4.5) H 03/22/17 03:35 Iron 58 mcg/dL (65-175) L 03/18/17 11:18 Transferrin 125 mg/dL (203-362) L 03/18/17 11:18 AST 42 Units/L (13-39) H 03/26/17 04:48 Alkaline Phosphatase 285 Units/L (34-104) H 03/26/17 04:48 Troponin I 0.07 ng/mL (< 0.04) H* 03/16/17 21:10 B-Natriuretic Peptide 2742 pg/mL (Less than 100) H 03/13/17 22:40 Albumin 3.0 g/dL (3.5-5.7) L 03/26/17 04:48 Globulin 3.6 g/dL (2.4-3.5) H 03/26/17 04:48 Albumin/Globulin Ratio 0.8 (1.1-2.2) L 03/26/17 04:48 Amylase 22 Units/L (29-103) L 03/26/17 04:48 25-OH Vitamin D Total 24 ng/mL (30-80) L 03/18/17 11:18 Folate 43.0 ng/mL (3.0-16.0) H 03/18/17 11:18 PTH Intact 395.7 pg/ml (10.0-65.0) H 03/18/17 11:18 Ur Specimen Adequacy See below A 03/25/17 18:45 Urine Clarity Turbid (Clear) A 03/25/17 18:45 Urine pH >=9.0 pH Units (5.0-8.0) H 03/25/17 18:45 Urine Protein >=300 mg/dL (Neg-Trace) H 03/25/17 18:45 Urine Blood Moderate (Negative) H 03/25/17 18:45 Urine Bilirubin Small (Negative) H 03/25/17 18:45 Ur Leukocyte Esterase Large (Negative) H 03/25/17 18:45 Urine Microscopic WBC TNTC per hpf (0-3) H 03/25/17 18:45 Urine Bacteria Many per hpf (None-Few) H 03/25/17 18:45 Urine Mucus Many (Few) H 03/25/17 18:45 Urine Yeast Many per hpf (None Seen) H 03/25/17 18:45 Ur Oval Fat Bodies Present (Not Present) A 03/25/17 18:45 Tobramycin Trough 4.4 mcg/mL (0-2.0) H 03/25/17 04:34 Digoxin 0.5 ng/mL (0.8-2.0) L 03/13/17 13:43 Phenytoin 4.3 mcg/mL (10.0-20.0) L 03/15/17 04:12 Free Phenytoin 0.8 ug/mL (1.0-2.5) L 03/15/17 04:12 Total Phenytoin 5.2 ug/mL (10.0-20.0) L 03/15/17 04:12 Percent Free Phenytoin 15.4 % (8.0-14.0) H 03/15/17 04:12 Valproic Acid 14 mcg/mL (50-100) L 03/13/17 13:43 - Microbiology Findings Microbiology Findings: Microbiology, Last 48 Hours 03/21/17 10:37 Blood Culture - Final Peripheral Venipuncture No growth. 03/25/17 18:45 Urine Culture - Preliminary Urine,[place] Yeast Species Enterococcus species Legionella Antigen - Final Streptococcus pneumoniae Antigen (M - Final 03/21/17 10:37 Blood Culture - Final Peripheral Venipuncture No growth. 03/25/17 18:20 Influenza Types A,B Antigen (MIKAELA) - Final Nasopharyngeal - Clinical Findings Intake & Output: Intake & Output 03/26/17 03/27/17 03/27/17 23:59 07:59 15:59 Intake Total 100 / 100 448 / 448 Output Total 155 / 155 300 / 300 Balance -55 / -55 433 / 433 -300 / -300 Weight 81.4 kg Consult Discharge Plan - Plan Referrals: NONE,PCP [Primary Care Provider] - - Attending Attestation I examined this patient and my medical decision-making was reviewed with the Resident Physician. I agree with the documented findings, disposition and treatment plan as described except to the extent set forth below. Patient seen and examined. Labs, radiology, chart personally reviewed. 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 Appreciate infectious disease input and when plan finalized then can be transferred to the SNF if remain stable. Renal; continue hemodialysis Endorcine: blood glucose is monitored Lines: all lines checked and no evidence of infections Skin: skin care to prevent pressure ulcers per nursing routine care <Octavio Jacobs - Last Filed: 03/27/17 15:13> Date of Encounter: 03/27/17 Time of Encounter: 08:30 Assessment and Plan (1) Acute and chronic respiratory failure Current Visit: Yes Status: Chronic Chronic tracheostomy s/p prior intracerebral hemorrhage. Stable vent settings. Pt underwent CPAP trial 03/26/17, CPAP stopped after 1h 4min due to increased HR/ RR agitation and work of breathing. Exacerbation of resp failure likely secondary to MDRO pneumonia being treated with Tobramycin and Cefepime. ID consulted 03/25, continuing treatment for PNA considering potential other sources, ID ordered Legionella antigen (negative), S. pneumoniae antigen (positive), urine culture pending. Paperwork through social ready for transfer to [facility] (dialysis chair confirmed at [facility]). Qualifiers: Respiratory failure complication: hypoxia Qualified Code(s): J96.21 - Acute and chronic respiratory failure with hypoxia (2) ESRD (end stage renal disease) Current Visit: Yes Status: Acute Following Nephrology. On hemodialysis MWF. [facility] has a dialysis chair available for patient once ready for discharge. Avoiding nephrotoxins, strict I/Os. (3) Pneumonia Current Visit: Yes Status: Acute Wt ct downtrending, now 13.7. MDRO pseudomonas pneumonia sensitive to and being treated with tobramycin and cefepime. Qualifiers: Pneumonia type: due to Pseudomonas Laterality: bilateral Lung location: unspecified part of lung Qualified Code(s): J15.1 - Pneumonia due to Pseudomonas Subjective Principal diagnosis: PEA Arrest Interval history: Pt had episode of hypotension, now stabilized, meds reconciled. Nephro and social work have dialysis set up at [facility]. Pending final recommendations for ID antibiotics, currently on tobramycin and cefepime with stabilizing white count. Objective PUL Vital signs: Last Vital Signs Temp 98.9 F 03/27/17 08:00 Pulse 96 03/27/17 08:50 Resp 24 03/27/17 08:26 BP 110/53 03/27/17 07:29 Pulse Ox 100 03/27/17 08:26 General appearance: other (non-conversant; good eye movement and neck movement, R>L s/p intracranial hemorrhage) Eyes: nonicteric Neck: supple Effort: other (chronic tracheostomy) Cardiovascular: regular rate and rhythm Gastrointestinal: soft, non-tender Integumentary: normal Extremities: no cyanosis Musculoskeletal: no deformities Ventilator Settings Ventilator Settings: Ventilator Settings, Last 8 Hours Ventilator Mode VC+ Ventilator Mode VC+ Ventilator Mode VC+ Ventilator Mode VC+ Ventilator Tidal Volume 500 Setting Ventilator Tidal Volume 500 Setting Ventilator Tidal Volume 500 Setting Ventilator Tidal Volume 500 Setting Ventilator Respiratory Rate 14 Setting Ventilator Respiratory Rate 18 Setting Ventilator Respiratory Rate 14 Setting Ventilator Respiratory Rate 14 Setting Actual Respiratory Rate 29 Actual Respiratory Rate 18 Actual Respiratory Rate 20 Actual Respiratory Rate 15 Positive End Expiratory 5 Pressure Positive End Expiratory 5 Pressure Positive End Expiratory 5 Pressure Positive End Expiratory 5 Pressure Peak Inspiratory Airway 18 Pressure Peak Inspiratory Airway 23 Pressure Peak Inspiratory Airway 26 Pressure Peak Inspiratory Airway 20 Pressure Results - Laboratory Findings CBC and BMP: 03/27/17 09:56 03/27/17 09:56 ABG ABG pH 7.47 pH Units (7.32-7.45) H 03/25/17 09:01 ABG pCO2 30 mmHg (35-45) L 03/25/17 09:01 ABG pO2 71 mmHg (85-104) L 03/25/17 09:01 ABG O2 Saturation 95 % (95-98) 03/25/17 09:01 PT/INR, D-dimer PT 12.5 Seconds (9.4-12.1) H 03/13/17 13:43 Abnormal lab findings: Abnormal lab results WBC 13.7 K/mcL (4.3-11.1) H 03/27/17 09:56 RBC 2.79 M/mcL (4.19-5.50) L 03/27/17 09:56 Hgb 8.2 g/dL (12.9-16.9) L 03/27/17 09:56 Hct 26.2 % (37.5-50.1) L 03/27/17 09:56 MCHC 31.3 g/dL (31.6-35.5) L 03/27/17 09:56 RDW 17.4 % (11.5-14.5) H 03/27/17 09:56 Neutrophils # 10.2 K/mcL (1.6-8.9) H 03/27/17 09:56 Monocytes # 1.6 K/mcL (0.0-1.3) H 03/27/17 09:56 Nucleated RBCs/100 WBC 0.1 /100 WBC (0) H 03/26/17 04:48 Large Platelets Present (Not Present) A 03/21/17 03:45 Polychromasia 1+ (Not Present) A 03/21/17 03:45 Anisocytosis 1+ (Not Present) A 03/24/17 04:32 Macrocytosis Present (Not Present) A 03/21/17 03:45 PT 12.5 Seconds (9.4-12.1) H 03/13/17 13:43 APTT 36.4 Seconds (26.0-36.0) H 03/13/17 13:43 ABG pH 7.47 pH Units (7.32-7.45) H 03/25/17 09:01 ABG pCO2 30 mmHg (35-45) L 03/25/17 09:01 ABG pO2 71 mmHg (85-104) L 03/25/17 09:01 Chloride 96 mEq/L (98-107) L 03/27/17 09:56 BUN 105 mg/dL (8-23) H 03/27/17 09:56 Creatinine 6.49 mg/dL (0.70-1.30) H 03/27/17 09:56 Est GFR ( Amer) 10 (> 60) L 03/27/17 09:56 Est GFR (Non-Af Amer) 9 (> 60) L 03/27/17 09:56 Glucose 144 mg/dL (70-105) H 03/27/17 09:56 POC Glucose 228 (58-89) H 03/27/17 00:46 Calculated Osmolality 324 (280-300) H 03/27/17 09:56 Phosphorus 5.1 mg/dL (2.7-4.5) H 03/22/17 03:35 Iron 58 mcg/dL (65-175) L 03/18/17 11:18 Transferrin 125 mg/dL (203-362) L 03/18/17 11:18 AST 42 Units/L (13-39) H 03/26/17 04:48 Alkaline Phosphatase 285 Units/L (34-104) H 03/26/17 04:48 Troponin I 0.07 ng/mL (< 0.04) H* 03/16/17 21:10 B-Natriuretic Peptide 2742 pg/mL (Less than 100) H 03/13/17 22:40 Albumin 3.0 g/dL (3.5-5.7) L 03/26/17 04:48 Globulin 3.6 g/dL (2.4-3.5) H 03/26/17 04:48 Albumin/Globulin Ratio 0.8 (1.1-2.2) L 03/26/17 04:48 Amylase 22 Units/L (29-103) L 03/26/17 04:48 25-OH Vitamin D Total 24 ng/mL (30-80) L 03/18/17 11:18 Folate 43.0 ng/mL (3.0-16.0) H 03/18/17 11:18 PTH Intact 395.7 pg/ml (10.0-65.0) H 03/18/17 11:18 Ur Specimen Adequacy See below A 03/25/17 18:45 Urine Clarity Turbid (Clear) A 03/25/17 18:45 Urine pH >=9.0 pH Units (5.0-8.0) H 03/25/17 18:45 Urine Protein >=300 mg/dL (Neg-Trace) H 03/25/17 18:45 Urine Blood Moderate (Negative) H 03/25/17 18:45 Urine Bilirubin Small (Negative) H 03/25/17 18:45 Ur Leukocyte Esterase Large (Negative) H 03/25/17 18:45 Urine Microscopic WBC TNTC per hpf (0-3) H 03/25/17 18:45 Urine Bacteria Many per hpf (None-Few) H 03/25/17 18:45 Urine Mucus Many (Few) H 03/25/17 18:45 Urine Yeast Many per hpf (None Seen) H 03/25/17 18:45 Ur Oval Fat Bodies Present (Not Present) A 03/25/17 18:45 Tobramycin Trough 4.4 mcg/mL (0-2.0) H 03/25/17 04:34 Digoxin 0.5 ng/mL (0.8-2.0) L 03/13/17 13:43 Phenytoin 4.3 mcg/mL (10.0-20.0) L 03/15/17 04:12 Free Phenytoin 0.8 ug/mL (1.0-2.5) L 03/15/17 04:12 Total Phenytoin 5.2 ug/mL (10.0-20.0) L 03/15/17 04:12 Percent Free Phenytoin 15.4 % (8.0-14.0) H 03/15/17 04:12 Valproic Acid 14 mcg/mL (50-100) L 03/13/17 13:43 - Microbiology Findings Microbiology Findings: Microbiology, Last 48 Hours 03/21/17 10:37 Blood Culture - Final Peripheral Venipuncture No growth. 03/25/17 18:45 Urine Culture - Preliminary Urine,[place] Yeast Species Enterococcus species Legionella Antigen - Final Streptococcus pneumoniae Antigen (M - Final 03/21/17 10:37 Blood Culture - Final Peripheral Venipuncture No growth. 03/25/17 18:20 Influenza Types A,B Antigen (MIKAELA) - Final Nasopharyngeal - Clinical Findings Intake & Output: Intake & Output 03/26/17 03/27/17 03/27/17 23:59 07:59 15:59 Intake Total 100 / 100 448 / 448 Output Total 155 / 155 300 / 300 Balance -55 / -55 433 / 433 -300 / -300 Weight 81.4 kg - VTE Documentation of Mechanical Device: Intermittent pneumatic compression device
--- NOTE | 2017-03-27 14:47 | Infectious Disease Progress No ---
Date of Encounter: 03/27/17 Time of Encounter: 09:45 - Assessment and Plan (1) Severe sepsis Current Visit: Yes Status: Acute Patient positive with 4 SIRS criteria: Leukocytosis, febrile, tachycardic, tachypneic Improving overall, but still spiking temperature and having tachycardia WBC continues to improve Likely source from pneumonia and UTI Strep pneumonia antigen positive, imaging consisten with pneumonia Enteroccus seen in urine culture causing complicated UTI Patient was evaluated for C. difficile which was negative We will continue vancomycin, Zosyn, and tobramycin. Consider de-escalation pending final urine culture and clinical evaluation Dose adjust antibiotics based on creatinine clearance and patient may on hemodialysis. Discussed with pharmacy staff (2) Acute and chronic respiratory failure Current Visit: Yes Status: Chronic Patient has tracheostomy is on chronic mechanical ventilation Presenting with PEA arrest suspect is secondary to hypoxia given pleural effusion/pneumonia CT of abdomen shows right lower lobe consolidation consistent with pneumonia and urine antigen positive for strep pneumonia, likely cause of patient acute respiratory failure Plan per primary team ID plan as above Qualifiers: Respiratory failure complication: hypoxia Qualified Code(s): J96.21 - Acute and chronic respiratory failure with hypoxia (3) Tracheobronchitis Current Visit: Yes Status: Acute Patient found to have MDRO P. aeruginosa in his sputum culture. This is likely due to colonization from his trach Plan as above (4) Pulmonary edema Current Visit: No Status: Acute Plan as above Qualifiers: Chronicity: acute Qualified Code(s): J81.0 - Acute pulmonary edema (5) Cardiac arrest Current Visit: Yes Status: Resolved Likely secondary to hypoxia Plan as above (6) Acute metabolic encephalopathy Current Visit: No Status: Acute Continued improvement in patient metabolic encephalopathy seen today (7) ESRD (end stage renal disease) on dialysis Current Visit: No Status: Chronic We will monitor renal function daily Renally dose medications Continue plan per nephrology - Subjective Interval history: Patient spontaneously alert this morning and answers some question. He denies having fever, chills, rigors, or diaphoresis. He does report that he continues to have a cough, but that it is relatively unchanged. He did have further improvement in his WBC, but did have an elevation of his temperature and tachycardia earlier in the day. Infect Dis PN-Objective Data - Labs CBC & Chem 7: 03/27/17 09:56 03/27/17 09:56 Labs: Laboratory Results - last 24 hr 03/26/17 03/26/17 03/26/17 04:13 09:41 10:36 WBC RBC Hgb Hct MCV MCH MCHC RDW Plt Count MPV Immature Gran % Seg Neutrophils % Lymphocytes % Monocytes % Eosinophils % Basophils % Neutrophils # Lymphocytes # Monocytes # Eosinophils # Basophils # Sodium Potassium Chloride Carbon Dioxide BUN Creatinine Est GFR ( Amer) Est GFR (Non-Af Amer) BUN/Creatinine Ratio Glucose POC Glucose 111 H 252 H Calculated Osmolality Calcium Crossmatch See Detail 03/26/17 03/26/17 03/26/17 13:37 17:17 19:34 WBC RBC Hgb Hct MCV MCH MCHC RDW Plt Count MPV Immature Gran % Seg Neutrophils % Lymphocytes % Monocytes % Eosinophils % Basophils % Neutrophils # Lymphocytes # Monocytes # Eosinophils # Basophils # Sodium Potassium Chloride Carbon Dioxide BUN Creatinine Est GFR ( Amer) Est GFR (Non-Af Amer) BUN/Creatinine Ratio Glucose POC Glucose 101 H 112 H 112 H Calculated Osmolality Calcium Crossmatch 03/27/17 03/27/17 03/27/17 00:46 09:56 09:56 WBC 13.7 H RBC 2.79 L Hgb 8.2 L Hct 26.2 L MCV 93.9 MCH 29.4 MCHC 31.3 L RDW 17.4 H Plt Count 340 MPV 12.4 Immature Gran % 3.1 Seg Neutrophils % 74.8 Lymphocytes % 6.9 Monocytes % 11.3 Eosinophils % 3.2 Basophils % 0.7 Neutrophils # 10.2 H Lymphocytes # 1.0 Monocytes # 1.6 H Eosinophils # 0.4 Basophils # 0.1 Sodium 139 Potassium 4.1 Chloride 96 L Carbon Dioxide 25 BUN 105 H Creatinine 6.49 H Est GFR ( Amer) 10 L Est GFR (Non-Af Amer) 9 L BUN/Creatinine Ratio 16 Glucose 144 H POC Glucose 228 H Calculated Osmolality 324 H Calcium 9.8 Crossmatch Cultures: Cultures 03/21/17 10:37 Blood Culture - Final Peripheral Venipuncture No growth. 03/25/17 18:45 Urine Culture - Preliminary Urine,[place] Yeast Species Enterococcus species Legionella Antigen - Final Streptococcus pneumoniae Antigen (M - Final 03/21/17 10:37 Blood Culture - Final Peripheral Venipuncture No growth. 03/25/17 18:20 Influenza Types A,B Antigen (MIKAELA) - Final Nasopharyngeal 03/18/17 13:20 Blood Culture - Final Peripheral Venipuncture No growth. 03/18/17 13:20 Blood Culture - Final Peripheral Venipuncture No growth. 03/21/17 11:30 Sputum Culture - Final Sputum P. aeruginosa MDRO 03/15/17 10:02 Sputum Culture - Final Sputum P. aeruginosa MDRO Serology 03/25/17 03/24/17 03/22/17 Range/Units 18:45 08:37 08:00 Ur Specimen Adequacy See below A Urine Color Dark Yellow Red A (Yellow) Urine Clarity Turbid A Turbid A (Clear) Urine pH >=9.0 H 8.0 (5.0-8.0) pH Units Ur Specific [place] 1.015 1.012 (1.010-1.025) Urine Protein >=300 H >=300 H (Neg-Trace) mg/dL Urine Glucose (UA) Normal Normal (Normal) mg/dL Urine Ketones Negative Negative (Negative) mg/dL Urine Blood Moderate H Moderate H (Negative) Urine Nitrite Negative Negative (Negative) Urine Bilirubin Small H Negative (Negative) Urine Urobilinogen Normal Normal (Normal) mg/dL Ur Leukocyte Esterase Large H Large H (Negative) Urine Microscopic RBC Present 50-100 H (0-3) per hpf Urine Microscopic WBC TNTC H TNTC H (0-3) per hpf Ur Squamous Epith Cells Present Many H (None-Few) per lpf Ur Renal Epithelial Cell Present (None-Few) per hpf Urine Bacteria Many H None Seen (None-Few) per hpf Hyaline Casts Few Test Not Performed Urine Mucus Many H (Few) Urine Yeast Many H Test Not Performed Ur Oval Fat Bodies Present A (Not Present) Ur Culture Indicated? NO. (NO) Stl C. cayetanensis PCR Not detected (Not detect) Stool Rotavirus A PCR Not detected (Not detect) Stl Adenov F 40/41 PCR Not detected (Not detect) Stool Astrovirus (PCR) Not detected (Not detect) Stool Campylobacter PCR Not detected (Not detect) Stl C. diff Tox B Gene (Negative) Stl C. diff Tox A/B PCR Not detected (Not detect) Stool Cryptosporidium PCR Not detected (Not detect) Stl Sh Tox Pr E STEC PCR Not detected (Not detect) Stool E coli O157 PCR Not detected (Not detect) Stl Enterotoxigenic E PCR Not detected (Not detect) Stool EPEC (PCR) Not detected (Not detect) Stool EAEC (PCR) Not detected (Not detect) Stl E. histolytica PCR Not detected (Not detect) Stool Giardia Lamblia PCR Not detected (Not detect) Stool Salmonella PCR Not detected (Not detect) Stool Sapovirus (PCR) Not detected (Not detect) Stl P. shigelloides PCR Not detected (Not detect) Stl Shigella/EIEC PCR Not detected (Not detect) St Y.enterocolitica PCR Not detected (Not detect) Stool Vibrio (PCR) Not detected (Not detect) Stl Vibrio cholerae PCR Not detected (Not detect) Stl Norovirus GI/GII PCR Not detected (Not detect) Stl GI Panel (PCR) Com See below Chlamy pneumoniae PCR (Not Detect) Adenovirus (PCR) (Not Detect) B. pertussis DNA (PCR) (Not Detect) B.parapertussis DNA PCR (Not Detect) Coronavirus OC43 (PCR) (Not Detect) Coronavirus HKU1 (PCR) (Not Detect) Coronavirus 229E (PCR) (Not Detect) Coronavirus NL63 (PCR) (Not Detect) Hep Bs Antigen (Nonreactive) Hep Bs Antibody mIU/mL Human Metapneumovir PCR (Not Detect) Influenza A (H1) PCR (Not Detect) Influ A (H1N1/09) PCR (Not Detect) Influenza A (H3) PCR (Not Detect) Influenza A Untype (PCR) (Not Detect) Influenza Type B (PCR) (Not Detect) M.pneumoniae DNA (PCR) (Not Detect) Parainfluenza 1 (PCR) (Not Detect) Parainfluenza 2 (PCR) (Not Detect) Parainfluenza 3 (PCR) (Not Detect) Parainfluenza 4 (PCR) (Not Detect) RSV (PCR) (Not Detect) Entero/Rhino (PCR) (Not Detect) 03/14/17 03/13/17 03/13/17 Range/Units 02:00 22:40 17:30 Ur Specimen Adequacy Urine Color (Yellow) Urine Clarity (Clear) Urine pH (5.0-8.0) pH Units Ur Specific [place] (1.010-1.025) Urine Protein (Neg-Trace) mg/dL Urine Glucose (UA) (Normal) mg/dL Urine Ketones (Negative) mg/dL Urine Blood (Negative) Urine Nitrite (Negative) Urine Bilirubin (Negative) Urine Urobilinogen (Normal) mg/dL Ur Leukocyte Esterase (Negative) Urine Microscopic RBC (0-3) per hpf Urine Microscopic WBC (0-3) per hpf Ur Squamous Epith Cells (None-Few) per lpf Ur Renal Epithelial Cell (None-Few) per hpf Urine Bacteria (None-Few) per hpf Hyaline Casts Urine Mucus (Few) Urine Yeast Ur Oval Fat Bodies (Not Present) Ur Culture Indicated? (NO) Stl C. cayetanensis PCR (Not detect) Stool Rotavirus A PCR (Not detect) Stl Adenov F 40/41 PCR (Not detect) Stool Astrovirus (PCR) (Not detect) Stool Campylobacter PCR (Not detect) Stl C. diff Tox B Gene Negative (Negative) Stl C. diff Tox A/B PCR (Not detect) Stool Cryptosporidium PCR (Not detect) Stl Sh Tox Pr E STEC PCR (Not detect) Stool E coli O157 PCR (Not detect) Stl Enterotoxigenic E PCR (Not detect) Stool EPEC (PCR) (Not detect) Stool EAEC (PCR) (Not detect) Stl E. histolytica PCR (Not detect) Stool Giardia Lamblia PCR (Not detect) Stool Salmonella PCR (Not detect) Stool Sapovirus (PCR) (Not detect) Stl P. shigelloides PCR (Not detect) Stl Shigella/EIEC PCR (Not detect) St Y.enterocolitica PCR (Not detect) Stool Vibrio (PCR) (Not detect) Stl Vibrio cholerae PCR (Not detect) Stl Norovirus GI/GII PCR (Not detect) Stl GI Panel (PCR) Com Chlamy pneumoniae PCR Not Detected (Not Detect) Adenovirus (PCR) Not Detected (Not Detect) B. pertussis DNA (PCR) Not Detected (Not Detect) B.parapertussis DNA PCR Not Detected (Not Detect) Coronavirus OC43 (PCR) Not Detected (Not Detect) Coronavirus HKU1 (PCR) Not Detected (Not Detect) Coronavirus 229E (PCR) Not Detected (Not Detect) Coronavirus NL63 (PCR) Not Detected (Not Detect) Hep Bs Antigen Nonreactive (Nonreactive) Hep Bs Antibody 7.75 mIU/mL Human Metapneumovir PCR Not Detected (Not Detect) Influenza A (H1) PCR Not Detected (Not Detect) Influ A (H1N1/09) PCR Not Detected (Not Detect) Influenza A (H3) PCR Not Detected (Not Detect) Influenza A Untype (PCR) Not Detected (Not Detect) Influenza Type B (PCR) Not Detected (Not Detect) M.pneumoniae DNA (PCR) Not Detected (Not Detect) Parainfluenza 1 (PCR) Not Detected (Not Detect) Parainfluenza 2 (PCR) Not Detected (Not Detect) Parainfluenza 3 (PCR) Not Detected (Not Detect) Parainfluenza 4 (PCR) Not Detected (Not Detect) RSV (PCR) Not Detected (Not Detect) Entero/Rhino (PCR) Not Detected (Not Detect) Exam - Constitutional Vitals: Temp Pulse Resp BP Pulse Ox 98.8 F 80 14 99/49 100 03/27/17 12:00 03/27/17 12:00 03/27/17 14:17 03/27/17 12:00 03/27/17 14:17 - Additional findings Additional findings: General: Cooperative, pleasant, no acute distress HEENT: Normocephalic, atraumatic, neck supple, trachea midline, Conjunctiva pink , sclera anicteric, oral mucosa moist Respiratory: Diffuse rhonchi on auscultation, improved from previous Cardiovascular: Regular rate and rhythm, S1 and S2 present, no murmurs/rubs/ gallops/clicks appreciated GI/abdominal: Nondistended, nontender, soft, normal bowel sounds, no peritoneal signs, PEG tube in place without signs of erythema or inflammation, urostomy in place in right anterior abdomen without signs of erythema or inflammation Extremities: No calf tenderness, noncyanotic, no pedal edema appreciated, warm, lower extremity pulses palpable and symmetrical Neurological: Alert, no facial droop, no focal deficits Skin: Dry, intact, normal color - VTE Documentation of Mechanical Device: Intermittent pneumatic compression device Consult Discharge Plan - Plan Referrals: NONE,PCP [Primary Care Provider] - - Attending Attestation I examined this patient and my medical decision-making was reviewed with the Resident Physician. I agree with the documented findings, disposition and treatment plan as described except to the extent set forth below. Patient still have a fever last night. minimal sputum suctioned from trach (improved since yesterday) no residual tube feeding urostomy cultures noted awaiting final ID and susceptibility for now continue current antibiotics regimen (vanc/zosyn/trobramycin)
--- NOTE | 2017-03-27 15:26 | Internal Med History&Physical ---
Date of Encounter: 03/27/17 Time of Encounter: 12:00 Internal Medicine - H&P: HPI Chief complaint: Fever Admitted From: Emergency Dept Plans for Post Hospital Care: Transfer Inp Rehab Fac Past Med Surg Social Fam HX - Past Medical History Medical history: cancer, CHF, coronary artery disease, diabetes, hypertension, myocardial infarction, renal disease Psychiatric history: no psych history - Past Surgical History Surgical History: cholecystectomy, vascular surgery - Social History Smoking Status: Never smoker Smokeless Tobacco Status: No Alcohol use: none Drug use: none Internal Medicine - H&P: Meds Ergocalciferol (VITAMIN D2) [Vitamin D2] 50,000 unit GTUBE SA 03/18/16 [History] Insulin ASPART [Novolog Flexpen] 8 unit SQ Q4H 03/18/16 [History] Acetaminophen [Tylenol] 325 mg GTUBE Q6H PRN 03/13/17 [History] Amiodarone [Cordarone] 200 mg GTUBE DAILY 03/13/17 [History] Amlodipine Besylate 10 mg GTUBE DAILY 03/13/17 [History] Buspirone HCl [Buspar] 15 mg GTUBE BID 03/13/17 [History] Calcium Acetate [Phos-LO] 1,334 mg GTUBE TIDWM 03/13/17 [History] Carvedilol 37.5 mg PO BIDWM 03/13/17 [History] CloNIDine Patch [Catapres-TTS] 0.3 mg TD QWEEK 03/13/17 [History] Darbepoetin Barron in Polysorbat [Aranesp] 50 mcg SQ QWEEK 03/13/17 [History] Dextrose [Glucose] 33 gm PO ONCE PRN 03/13/17 [History] Digoxin [Lanoxin] 0.125 mg PO Q72H 03/13/17 [History] Diltiazem HCl [Cardizem] 60 mg GTUBE QID 03/13/17 [History] Epoetin Barron [Procrit] 10,000 unit SQ ONCE PRN 03/13/17 [History] Guaifenesin [Cough Syrup] 300 mg GTUBE BID 03/13/17 [History] Hydralazine HCl 125 mg GTUBE Q8H 03/13/17 [History] Insulin Glargine [Lantus] 25 unit SQ QAM 03/13/17 [History] Insulin Regular Human [HumuLIN R] 0 - 16 unit SQ Q6H 03/13/17 [History] Ipratropium/Albuterol Neb [Duoneb] 3 ml IH Q4H PRN 03/13/17 [History] Labetalol 10 mg IV Q1H PRN 03/13/17 [History] Lansoprazole susp *PEDS* [Prevacid susp] 30 mg GTUBE DAILY 03/13/17 [History] Levothyroxine [Synthroid] 75 mcg GTUBE QAM 03/13/17 [History] Lidocaine Patch [Lidoderm 5% patch] 1 each TP DAILY 03/13/17 [History] Metoprolol Tartrate 10 mg IV Q6H 03/13/17 [History] Nitroglycerin [Nitrostat] 0.4 mg SL Q5M PRN 03/13/17 [History] Ondansetron HCl [Zofran] 4 mg PO Q6H PRN 03/13/17 [History] Phenytoin [Dilantin] 100 mg GTUBE BID 03/13/17 [History] Jkhipndaydss-Njhu-Agwtsojf,Iso [Zosyn 2.25 gm/50 ml Galaxy Bag] 2.25 gm IV Q6H 03/13/17 [History] Polyethylene Glycol 3350 [MiraLAX] 17 gm PO DAILY 03/13/17 [History] Quetiapine Fumarate [SEROquel] 12.5 mg GTUBE DAILY 03/13/17 [History] Quetiapine Fumarate [Seroquel] 50 mg GTUBE HS 03/13/17 [History] Renal Vitamin [Renal Caps Softgel] 1 mg GTUBE DAILY 03/13/17 [History] Sacubitril/Valsartan [Entresto 97 mg-103 mg Tablet] 1 each GTUBE BID 03/13/17 [ History] Valproic Acid Oral Soln [Depakene Oral Soln] 250 mg GTUBE BID 03/13/17 [History] clonazePAM [Klonopin] 0.25 mg GTUBE BID PRN 03/13/17 [History] 3 Allergy/AdvReac Type Severity Reaction Status Date / Time Sulfa (Sulfonamide Allergy Severe Anaphylaxis Verified 03/21/16 07:20 Antibiotics) codeine Allergy Unknown See Verified 03/19/16 07:08 Comments All Systems PM: A 10-system review of systems was performed and is negative for pertinent findings except as documented above in the HPI. - Constitutional Vitals: Temp Pulse Resp BP Pulse Ox 98.8 F 80 14 99/49 100 03/27/17 12:00 03/27/17 12:00 03/27/17 14:17 03/27/17 12:00 03/27/17 14:17 Internal Med - H&P Results - Labs CBC & Chem 7: 03/27/17 09:56 03/27/17 09:56 Labs: Short CBC 03/27/17 Range/Units 09:56 WBC 13.7 H (4.3-11.1) K/mcL Hgb 8.2 L (12.9-16.9) g/dL Hct 26.2 L (37.5-50.1) % Plt Count 340 (140-400) K/mcL Neutrophils # 10.2 H (1.6-8.9) K/mcL BMP 03/27/17 09:56 Sodium 139 Potassium 4.1 Chloride 96 L Carbon Dioxide 25 BUN 105 H Creatinine 6.49 H Glucose 144 H Calcium 9.8 - ABG Interpretation ABG results: 03/13/17 03/14/17 03/15/17 17:13 04:21 04:10 ABG pH 7.40 7.43 7.45 ABG pCO2 43 41 38 ABG pO2 105 H 54 L 82 L ABG HCO3 27 27 26 ABG Total CO2 28 H 29 H 27 H ABG O2 Saturation 98 88 L 97 ABG Base Excess 2 3 2 03/16/17 03/17/17 03/18/17 05:22 04:28 04:47 ABG pH 7.45 7.48 H 7.51 H ABG pCO2 46 H 46 H 38 ABG pO2 59 L 64 L 67 L ABG HCO3 32 H 34 H 31 H ABG Total CO2 33 H 36 H 32 H ABG O2 Saturation 91 L 93 L 95 ABG Base Excess 7 H 10 H 7 H 03/19/17 03/20/17 03/22/17 04:38 04:22 04:19 ABG pH 7.43 7.44 7.45 ABG pCO2 45 44 43 ABG pO2 76 L 95 73 L ABG HCO3 30 H 29 H 29 H ABG Total CO2 31 H 31 H 31 H ABG O2 Saturation 95 98 95 ABG Base Excess 5 H 5 H 5 H 03/23/17 03/25/17 19:33 09:01 ABG pH 7.45 7.47 H ABG pCO2 39 30 L ABG pO2 57 L 71 L ABG HCO3 27 21 ABG Total CO2 28 H 22 ABG O2 Saturation 90 L 95 ABG Base Excess 3 -2 - Impressions ITS Impressions Chest X-Ray 03/14/17 05:00 IMPRESSION: Stable exam with likely bilateral layering pleural effusions with superimposed patchy/hazy airspace opacities which may relate to atelectasis, infiltrates and/or pulmonary edema. D/ / 03/14/2017 08:06:57 Eber Alcantar MD / bernie Interpreting Provider: Eber Alcantar MD Chest X-Ray 03/18/17 15:00 IMPRESSION: Improving diffuse pulmonary edema and bilateral pleural effusions compared to prior exam. D/ / Dylon Kong MD / Dylon Kong MD Interpreting Provider: Dylon Kong MD Chest X-Ray 03/23/17 18:36 IMPRESSION: Pulmonary vascular congestion with increasing bilateral parahilar airspace opacities likely representing edema. D/ / Kurt Ma MD / Kurt Ma MD Interpreting Provider: Kurt Ma MD Abdomen/Pelvis CT 03/25/17 20:00 IMPRESSION: 1. Right lower lobe pulmonary consolidation compatible with pneumonia. 2. Moderate bilateral pleural effusions. 3. No acute abnormality in the abdomen or pelvis to account for the patient's fever. 4. Status post cystectomy and prostatectomy with right lower quadrant ostomy. D/ / 03/25/2017 22:21:08 Austyn Callahan MD / bcarter Interpreting Provider: Austyn Callahan MD Chest CT 03/25/17 20:00 IMPRESSION: Slight interval decrease in the multifocal airspace disease bilaterally and the bilateral pleural effusions. D/ / Donovan Sue / Donovan Sue Interpreting Provider: Donovan Sue - VTE Documentation of Mechanical Device: Intermittent pneumatic compression device
--- NOTE | 2017-03-27 16:53 | Event Note ---
Date of Encounter: 03/27/17 Time of Encounter: 12:00 I have evaluated the patient at bedside today, discussed the care with patient' s nurse. The patient is in no acute distress currently on mechanical ventilation through tracheostomy, he is arousable but nonverbal. Heart is tachycardic and regular. Abdomen is soft and nontender. I have reviewed the patient's medications and laboratory data. The patient is currently managed by the critical care service. We will defer care to pulmonology.
[2017-03-28] MEDS: Ipratropium/Albuterol Neb 3 ML IH SCH ×4 (03:37→21:57)
[2017-03-28] MEDS: *HR* Heparin 5,000 UNIT/ML VIAL SQ SCH ×3 (04:12→20:24)
[2017-03-28] MEDS: Insulin LISPRO 300 UNITS/3 ML VIAL SQ SCH ×6 (04:12→20:39)
[2017-03-28 05:31] LABS: Basophils # 0.1 K/mcL (0.0-0.2); Basophils % 0.8 %; Eosinophils # 0.6 K/mcL (0.0-0.6); Eosinophils % 4.2 %; Hematocrit 24.1 % (37.5-50.1); Hemoglobin 7.9 g/dL (12.9-16.9); Immature Granulocytes % 4.1 % (0-4); Lymphocytes # 1.3 K/mcL (0.6-4.6); Lymphocytes % 8.9 %; Mean Corpuscular HGB Conc 32.8 g/dL (31.6-35.5); Mean Corpuscular Hemoglobin 30.4 pg (28.0-33.3); Mean Corpuscular Volume 92.7 fL (83.0-100.0); Mean Platelet Volume 12.3 fL (9.4-12.4); Monocytes # 1.1 K/mcL (0.0-1.3); Monocytes % 7.5 %; Neutrophils # 10.6 K/mcL (1.6-8.9); Platelet Count 384 K/mcL (140-400); Segmented Neutrophils % 74.5 %
[2017-03-28 05:48] LABS: Tobramycin,Random 2.9 mcg/mL
[2017-03-28 05:54] LABS: Vancomycin,Random 17.7 mcg/mL
[2017-03-28 06:27] LABS: Calcium 10.1 mg/dL (8.6-10.3); Potassium 3.9 mEq/L (3.5-5.1)
[2017-03-28] MEDS ORDERED: 0.9 % Sodium Chloride 2,000 ML ONE (07:05)
[2017-03-28] MEDS ORDERED: 0.9 % Sodium Chloride 250 ML IVC PRN (07:17)
[2017-03-28] MEDS ORDERED: Albumin 25% 25gram/100mL 25 GM/100 ML IV.SOLN IVPB PRN (07:22)
[2017-03-28] MEDS ORDERED: 0.9 % Sodium Chloride 1,000 ML PRIME SCH (07:30)
--- NOTE | 2017-03-28 08:07 | Infectious Disease Progress No ---
Date of Encounter: 03/28/17 Time of Encounter: 07:25 - Assessment and Plan (1) Severe sepsis Current Visit: Yes Status: Acute Patient positive with 3 SIRS criteria: Leukocytosis, tachycardic, tachypneic Improving overall, no elevations in temperature seen but continued tachycardia and stable WBC Likely source from pneumonia and UTI Strep pneumonia antigen positive, imaging consistent with pneumonia Enteroccus seen in urine culture causing complicated UTI Patient was evaluated for C. difficile which was negative We will continue vancomycin, Zosyn, and tobramycin. Consider de-escalation pending final urine culture and clinical evaluation Dose adjust antibiotics based on ESRD and HD schedule. Discussed with pharmacy staff (2) Acute and chronic respiratory failure Current Visit: Yes Status: Chronic Patient has tracheostomy is on chronic mechanical ventilation Presenting with PEA arrest suspect is secondary to hypoxia given pleural effusion/pneumonia CT of abdomen shows right lower lobe consolidation consistent with pneumonia and urine antigen positive for strep pneumonia, likely cause of patient acute respiratory failure Plan per primary team ID plan as above Qualifiers: Respiratory failure complication: hypoxia Qualified Code(s): J96.21 - Acute and chronic respiratory failure with hypoxia (3) Tracheobronchitis Current Visit: Yes Status: Acute Patient found to have MDRO P. aeruginosa in his sputum culture. This is likely due to colonization from his trach Plan as above (4) Pulmonary edema Current Visit: No Status: Acute Plan as above Qualifiers: Chronicity: acute Qualified Code(s): J81.0 - Acute pulmonary edema (5) Cardiac arrest Current Visit: Yes Status: Resolved Likely secondary to hypoxia Plan as above (6) Acute metabolic encephalopathy Current Visit: No Status: Resolved Continued improvement in patient metabolic encephalopathy seen today (7) ESRD (end stage renal disease) on dialysis Current Visit: No Status: Chronic We will monitor renal function daily Renally dose medications Continue plan per nephrology - Subjective Interval history: Patient is doing well today and does not report any new concerns or complaints. He continues to denie fever, chills, rigors, or diaphoresis. His cough is relatively unchanged from previous. His WBC has remained relatively stable from yesterday and although he has had continuation of his tachycardia, he has not had any repeat fevers. Infect Dis PN-Objective Data - Labs CBC & Chem 7: 03/28/17 05:15 03/28/17 05:15 Labs: Laboratory Results - last 24 hr 03/26/17 03/27/17 03/27/17 00:23 04:28 07:57 WBC RBC Hgb Hct MCV MCH MCHC RDW Plt Count MPV Immature Gran % Seg Neutrophils % Lymphocytes % Monocytes % Eosinophils % Basophils % Neutrophils # Lymphocytes # Monocytes # Eosinophils # Basophils # Sodium Potassium Chloride Carbon Dioxide BUN Creatinine Est GFR ( Amer) Est GFR (Non-Af Amer) BUN/Creatinine Ratio Glucose POC Glucose 209 H 183 H Calculated Osmolality Calcium Procalcitonin 30.02 H Random Tobramycin Random Vancomycin 03/27/17 03/27/17 03/27/17 09:56 09:56 12:08 WBC 13.7 H RBC 2.79 L Hgb 8.2 L Hct 26.2 L MCV 93.9 MCH 29.4 MCHC 31.3 L RDW 17.4 H Plt Count 340 MPV 12.4 Immature Gran % 3.1 Seg Neutrophils % 74.8 Lymphocytes % 6.9 Monocytes % 11.3 Eosinophils % 3.2 Basophils % 0.7 Neutrophils # 10.2 H Lymphocytes # 1.0 Monocytes # 1.6 H Eosinophils # 0.4 Basophils # 0.1 Sodium 139 Potassium 4.1 Chloride 96 L Carbon Dioxide 25 BUN 105 H Creatinine 6.49 H Est GFR ( Amer) 10 L Est GFR (Non-Af Amer) 9 L BUN/Creatinine Ratio 16 Glucose 144 H POC Glucose 71 Calculated Osmolality 324 H Calcium 9.8 Procalcitonin Random Tobramycin Random Vancomycin 03/27/17 03/27/17 03/27/17 15:59 20:29 23:41 WBC RBC Hgb Hct MCV MCH MCHC RDW Plt Count MPV Immature Gran % Seg Neutrophils % Lymphocytes % Monocytes % Eosinophils % Basophils % Neutrophils # Lymphocytes # Monocytes # Eosinophils # Basophils # Sodium Potassium Chloride Carbon Dioxide BUN Creatinine Est GFR ( Amer) Est GFR (Non-Af Amer) BUN/Creatinine Ratio Glucose POC Glucose 134 H 255 H 165 H Calculated Osmolality Calcium Procalcitonin Random Tobramycin Random Vancomycin 03/28/17 03/28/17 03/28/17 05:15 05:15 05:15 WBC 14.3 H RBC 2.60 L Hgb 7.9 L Hct 24.1 L MCV 92.7 MCH 30.4 MCHC 32.8 RDW 17.0 H Plt Count 384 MPV 12.3 Immature Gran % 4.1 H Seg Neutrophils % 74.5 Lymphocytes % 8.9 Monocytes % 7.5 Eosinophils % 4.2 Basophils % 0.8 Neutrophils # 10.6 H Lymphocytes # 1.3 Monocytes # 1.1 Eosinophils # 0.6 Basophils # 0.1 Sodium 140 Potassium 3.9 Chloride 96 L Carbon Dioxide 24 BUN 118 H Creatinine 7.17 H Est GFR ( Amer) 9 L Est GFR (Non-Af Amer) 8 L BUN/Creatinine Ratio 16 Glucose 162 H POC Glucose Calculated Osmolality 331 H Calcium 10.1 Procalcitonin Random Tobramycin 2.9 Random Vancomycin 17.7 Cultures: Cultures 03/21/17 10:37 Blood Culture - Final Peripheral Venipuncture No growth. 03/25/17 18:45 Urine Culture - Preliminary Urine,[place] Yeast Species Enterococcus species Legionella Antigen - Final Streptococcus pneumoniae Antigen (M - Final 03/21/17 10:37 Blood Culture - Final Peripheral Venipuncture No growth. 03/25/17 18:20 Influenza Types A,B Antigen (MIKAELA) - Final Nasopharyngeal 03/18/17 13:20 Blood Culture - Final Peripheral Venipuncture No growth. 03/18/17 13:20 Blood Culture - Final Peripheral Venipuncture No growth. 03/21/17 11:30 Sputum Culture - Final Sputum P. aeruginosa MDRO 03/15/17 10:02 Sputum Culture - Final Sputum P. aeruginosa MDRO Serology 03/25/17 03/24/17 03/22/17 Range/Units 18:45 08:37 08:00 Ur Specimen Adequacy See below A Urine Color Dark Yellow Red A (Yellow) Urine Clarity Turbid A Turbid A (Clear) Urine pH >=9.0 H 8.0 (5.0-8.0) pH Units Ur Specific [place] 1.015 1.012 (1.010-1.025) Urine Protein >=300 H >=300 H (Neg-Trace) mg/dL Urine Glucose (UA) Normal Normal (Normal) mg/dL Urine Ketones Negative Negative (Negative) mg/dL Urine Blood Moderate H Moderate H (Negative) Urine Nitrite Negative Negative (Negative) Urine Bilirubin Small H Negative (Negative) Urine Urobilinogen Normal Normal (Normal) mg/dL Ur Leukocyte Esterase Large H Large H (Negative) Urine Microscopic RBC Present 50-100 H (0-3) per hpf Urine Microscopic WBC TNTC H TNTC H (0-3) per hpf Ur Squamous Epith Cells Present Many H (None-Few) per lpf Ur Renal Epithelial Cell Present (None-Few) per hpf Urine Bacteria Many H None Seen (None-Few) per hpf Hyaline Casts Few Test Not Performed Urine Mucus Many H (Few) Urine Yeast Many H Test Not Performed Ur Oval Fat Bodies Present A (Not Present) Ur Culture Indicated? NO. (NO) Stl C. cayetanensis PCR Not detected (Not detect) Stool Rotavirus A PCR Not detected (Not detect) Stl Adenov F 40/41 PCR Not detected (Not detect) Stool Astrovirus (PCR) Not detected (Not detect) Stool Campylobacter PCR Not detected (Not detect) Stl C. diff Tox B Gene (Negative) Stl C. diff Tox A/B PCR Not detected (Not detect) Stool Cryptosporidium PCR Not detected (Not detect) Stl Sh Tox Pr E STEC PCR Not detected (Not detect) Stool E coli O157 PCR Not detected (Not detect) Stl Enterotoxigenic E PCR Not detected (Not detect) Stool EPEC (PCR) Not detected (Not detect) Stool EAEC (PCR) Not detected (Not detect) Stl E. histolytica PCR Not detected (Not detect) Stool Giardia Lamblia PCR Not detected (Not detect) Stool Salmonella PCR Not detected (Not detect) Stool Sapovirus (PCR) Not detected (Not detect) Stl P. shigelloides PCR Not detected (Not detect) Stl Shigella/EIEC PCR Not detected (Not detect) St Y.enterocolitica PCR Not detected (Not detect) Stool Vibrio (PCR) Not detected (Not detect) Stl Vibrio cholerae PCR Not detected (Not detect) Stl Norovirus GI/GII PCR Not detected (Not detect) Stl GI Panel (PCR) Com See below Chlamy pneumoniae PCR (Not Detect) Adenovirus (PCR) (Not Detect) B. pertussis DNA (PCR) (Not Detect) B.parapertussis DNA PCR (Not Detect) Coronavirus OC43 (PCR) (Not Detect) Coronavirus HKU1 (PCR) (Not Detect) Coronavirus 229E (PCR) (Not Detect) Coronavirus NL63 (PCR) (Not Detect) Hep Bs Antigen (Nonreactive) Hep Bs Antibody mIU/mL Human Metapneumovir PCR (Not Detect) Influenza A (H1) PCR (Not Detect) Influ A (H1N1/09) PCR (Not Detect) Influenza A (H3) PCR (Not Detect) Influenza A Untype (PCR) (Not Detect) Influenza Type B (PCR) (Not Detect) M.pneumoniae DNA (PCR) (Not Detect) Parainfluenza 1 (PCR) (Not Detect) Parainfluenza 2 (PCR) (Not Detect) Parainfluenza 3 (PCR) (Not Detect) Parainfluenza 4 (PCR) (Not Detect) RSV (PCR) (Not Detect) Entero/Rhino (PCR) (Not Detect) 03/14/17 03/13/17 03/13/17 Range/Units 02:00 22:40 17:30 Ur Specimen Adequacy Urine Color (Yellow) Urine Clarity (Clear) Urine pH (5.0-8.0) pH Units Ur Specific [place] (1.010-1.025) Urine Protein (Neg-Trace) mg/dL Urine Glucose (UA) (Normal) mg/dL Urine Ketones (Negative) mg/dL Urine Blood (Negative) Urine Nitrite (Negative) Urine Bilirubin (Negative) Urine Urobilinogen (Normal) mg/dL Ur Leukocyte Esterase (Negative) Urine Microscopic RBC (0-3) per hpf Urine Microscopic WBC (0-3) per hpf Ur Squamous Epith Cells (None-Few) per lpf Ur Renal Epithelial Cell (None-Few) per hpf Urine Bacteria (None-Few) per hpf Hyaline Casts Urine Mucus (Few) Urine Yeast Ur Oval Fat Bodies (Not Present) Ur Culture Indicated? (NO) Stl C. cayetanensis PCR (Not detect) Stool Rotavirus A PCR (Not detect) Stl Adenov F 40/41 PCR (Not detect) Stool Astrovirus (PCR) (Not detect) Stool Campylobacter PCR (Not detect) Stl C. diff Tox B Gene Negative (Negative) Stl C. diff Tox A/B PCR (Not detect) Stool Cryptosporidium PCR (Not detect) Stl Sh Tox Pr E STEC PCR (Not detect) Stool E coli O157 PCR (Not detect) Stl Enterotoxigenic E PCR (Not detect) Stool EPEC (PCR) (Not detect) Stool EAEC (PCR) (Not detect) Stl E. histolytica PCR (Not detect) Stool Giardia Lamblia PCR (Not detect) Stool Salmonella PCR (Not detect) Stool Sapovirus (PCR) (Not detect) Stl P. shigelloides PCR (Not detect) Stl Shigella/EIEC PCR (Not detect) St Y.enterocolitica PCR (Not detect) Stool Vibrio (PCR) (Not detect) Stl Vibrio cholerae PCR (Not detect) Stl Norovirus GI/GII PCR (Not detect) Stl GI Panel (PCR) Com Chlamy pneumoniae PCR Not Detected (Not Detect) Adenovirus (PCR) Not Detected (Not Detect) B. pertussis DNA (PCR) Not Detected (Not Detect) B.parapertussis DNA PCR Not Detected (Not Detect) Coronavirus OC43 (PCR) Not Detected (Not Detect) Coronavirus HKU1 (PCR) Not Detected (Not Detect) Coronavirus 229E (PCR) Not Detected (Not Detect) Coronavirus NL63 (PCR) Not Detected (Not Detect) Hep Bs Antigen Nonreactive (Nonreactive) Hep Bs Antibody 7.75 mIU/mL Human Metapneumovir PCR Not Detected (Not Detect) Influenza A (H1) PCR Not Detected (Not Detect) Influ A (H1N1/09) PCR Not Detected (Not Detect) Influenza A (H3) PCR Not Detected (Not Detect) Influenza A Untype (PCR) Not Detected (Not Detect) Influenza Type B (PCR) Not Detected (Not Detect) M.pneumoniae DNA (PCR) Not Detected (Not Detect) Parainfluenza 1 (PCR) Not Detected (Not Detect) Parainfluenza 2 (PCR) Not Detected (Not Detect) Parainfluenza 3 (PCR) Not Detected (Not Detect) Parainfluenza 4 (PCR) Not Detected (Not Detect) RSV (PCR) Not Detected (Not Detect) Entero/Rhino (PCR) Not Detected (Not Detect) Exam - Constitutional Vitals: Temp Pulse Resp BP Pulse Ox 99.0 F 91 16 115/51 93 03/28/17 04:29 03/28/17 04:29 03/28/17 05:44 03/28/17 05:44 03/28/17 05:44 - Additional findings Additional findings: General: Cooperative, pleasant, no acute distress HEENT: Normocephalic, atraumatic, neck supple, trachea midline, Conjunctiva pink , sclera anicteric, oral mucosa moist Respiratory: Slight rhochi on auscultation b/l Cardiovascular: tachycardia, S1 and S2 present, no murmurs/rubs/gallops/clicks appreciated GI/abdominal: Nondistended, nontender, soft, normal bowel sounds, no peritoneal signs, PEG tube in place without signs of erythema or inflammation, urostomy in place in right anterior abdomen without signs of erythema or inflammation Extremities: No calf tenderness, no pedal edema appreciated, warm, lower extremity pulses palpable and symmetrical Neurological: Alert, no facial droop, no focal deficits Skin: Dry, intact, normal color - VTE Documentation of Mechanical Device: Intermittent pneumatic compression device Consult Discharge Plan - Plan Referrals: NONE,PCP [Primary Care Provider] - - Attending Attestation I examined this patient and my medical decision-making was reviewed with the Resident Physician. I agree with the documented findings, disposition and treatment plan as described except to the extent set forth below.
--- NOTE | 2017-03-28 08:24 | Nephrology Progress Note ---
Date of Encounter: 03/28/17 Time of Encounter: 08:23 - Assessment and Plan (1) ESRD (end stage renal disease) on dialysis Current Visit: No Status: Chronic Plan for HD today-now on a TTS schedule Avoid nephrotoxins if possible (2) Anemia Current Visit: Yes Status: Acute Hgb 7.9 Goal hgb 10-11 Transfuse per parameters Continue Aranesp Qualifiers: Anemia type: due to chronic kidney disease Chronic kidney disease stage: on chronic dialysis Qualified Code(s): N18.6 - End stage renal disease; D63.1 - Anemia in chronic kidney disease; D63.1 - Anemia in chronic kidney disease; Z99.2 - Dependence on renal dialysis; Z99.2 - Dependence on renal dialysis; Z99.2 - Dependence on renal dialysis; Z99.2 - Dependence on renal dialysis (3) Severe sepsis Current Visit: Yes Status: Acute per infectious disease team Subjective Principal diagnosis: PEA Arrest Interval history: Patient seen and examined. Communicates through nodding and hand jesters. Objective - Vital Signs Vital signs: Vital Signs Temp Pulse Resp BP Pulse Ox 03/28/17 08:09 24 104/46 97 03/28/17 05:44 16 115/51 93 03/28/17 04:29 99.0 F 91 20 115/57 97 03/28/17 03:37 14 131/55 97 03/28/17 01:21 21 93/43 100 03/28/17 00:43 84 16 129/58 99 03/28/17 00:13 98.7 F 03/27/17 23:45 18 115/55 100 03/27/17 21:51 20 117/47 100 03/27/17 20:10 98.5 F 89 23 134/64 98 03/27/17 19:43 21 117/59 100 03/27/17 18:22 85 16 123/54 100 03/27/17 18:21 18 100 03/27/17 16:54 17 100 03/27/17 16:30 74 16 115/54 99 03/27/17 16:00 98.5 F 03/27/17 14:17 14 100 03/27/17 12:00 98.8 F 80 17 99/49 100 03/27/17 11:01 15 100 03/27/17 08:50 96 03/27/17 08:26 24 100 Intake and Output 03/27/17 03/28/17 03/28/17 23:59 07:59 15:59 Intake Total 768 / 768 431 / 431 Output Total 200 / 200 150 / 150 Balance 568 / 568 281 / 281 Intake: IV Fluids 100 / 100 Zosyn 3.375 GM In 0.9 % Sodium 100 / 100 Chloride 100 ML @ 25 mls/hr IV[facility] Q[facility]H [facility] Rx#:[id number] Tube Feeding 668 / 668 431 / 431 Output: Rectal Tube 200 / 200 150 / 150 Urostomy 0 / 0 Catheter 0 / 0 0 / 0 Other: Weight 79.3 kg Blood Glucose* 134 157 Patient Weight 03/28/17 23:59 Weight 79.3 kg - General Appearance General appearance: Present: chronically ill, frail EENT: Present: ATNC, mucous membranes moist, hearing intact, vision intact Neck: Present: supple Respiratory: Present: clear Cardiology: Present: no edema, normal S1, normal S2 Dialysis Vascular Access: Arteriovenous Fistula Gastrointestinal: Present: no tenderness, no guarding Integumentary: Present: warm and dry Neurologic: Present: alert and oriented x3 Psychiatric: Present: mood/affect appropriate, cooperative - Lab 03/28/17 05:15 03/28/17 05:15 Most recent lab results ABG pH 7.47 pH Units (7.32-7.45) H 03/25/17 09:01 ABG pCO2 30 mmHg (35-45) L 03/25/17 09:01 ABG pO2 71 mmHg (85-104) L 03/25/17 09:01 ABG HCO3 21 mEq/L (21-27) 03/25/17 09:01 ABG O2 Saturation 95 % (95-98) 03/25/17 09:01 Calcium 10.1 mg/dL (8.6-10.3) 03/28/17 05:15 Phosphorus 5.1 mg/dL (2.7-4.5) H 03/22/17 03:35 Magnesium 2.3 mg/dL (1.6-2.6) 03/25/17 04:34 - VTE Documentation of Mechanical Device: Intermittent pneumatic compression device Consult Discharge Plan - Plan Referrals: NONE,PCP [Primary Care Provider] -
--- NOTE | 2017-03-28 09:06 | Pulmonology Progress Note ---
<Octavio Jacobs - Last Filed: 03/28/17 09:06> Date of Encounter: 03/28/17 Assessment and Plan (1) Acute and chronic respiratory failure Current Visit: Yes Status: Chronic Chronic tracheostomy s/p prior intracerebral hemorrhage. Stable vent settings. Pt underwent CPAP trial 03/26/17, CPAP stopped after 1h 4min due to increased HR/ RR agitation and work of breathing. Exacerbation of resp failure likely secondary to MDRO pneumonia being treated with Tobramycin and Cefepime. ID consulted 03/25, continuing treatment for PNA considering potential other sources, ID ordered Legionella antigen (negative), S. pneumoniae antigen (positive), urine culture pending. Paperwork through social ready for transfer to [facility] (dialysis chair confirmed at [facility]). Qualifiers: Respiratory failure complication: hypoxia Qualified Code(s): J96.21 - Acute and chronic respiratory failure with hypoxia (2) ESRD (end stage renal disease) Current Visit: Yes Status: Acute Following Nephrology. On hemodialysis MWF. [facility] has a dialysis chair available for patient once ready for discharge. Avoiding nephrotoxins, strict I/Os. (3) Pneumonia Current Visit: Yes Status: Acute Wt ct downtrending, now 13.7. MDRO pseudomonas pneumonia sensitive to and being treated with tobramycin and cefepime. Qualifiers: Pneumonia type: due to Pseudomonas Laterality: bilateral Lung location: unspecified part of lung Qualified Code(s): J15.1 - Pneumonia due to Pseudomonas Subjective Principal diagnosis: PEA Arrest Interval history: Pt had episode of hypotension, now stabilized, meds reconciled. Nephro and social work have dialysis set up at [facility]. Pending final recommendations for ID antibiotics, currently on tobramycin and cefepime with stabilizing white count. Objective PUL Vital signs: Last Vital Signs Temp 99.2 F 03/28/17 08:30 Pulse 91 03/28/17 04:29 Resp 24 03/28/17 08:09 BP 104/46 03/28/17 08:09 Pulse Ox 97 03/28/17 08:09 Ventilator Settings Ventilator Settings: Ventilator Settings, Last 8 Hours Ventilator Mode VC+ Ventilator Mode VC+ Ventilator Mode VC+ Ventilator Mode VC+ Ventilator Mode VC+ Ventilator Mode VC+ Ventilator Mode VC+ Ventilator Tidal Volume 500 Setting Ventilator Tidal Volume 500 Setting Ventilator Tidal Volume 500 Setting Ventilator Tidal Volume 500 Setting Ventilator Tidal Volume 500 Setting Ventilator Tidal Volume 500 Setting Ventilator Tidal Volume 500 Setting Ventilator Respiratory Rate 14 Setting Ventilator Respiratory Rate 14 Setting Ventilator Respiratory Rate 14 Setting Ventilator Respiratory Rate 14 Setting Ventilator Respiratory Rate 14 Setting Ventilator Respiratory Rate 14 Setting Ventilator Respiratory Rate 14 Setting Actual Respiratory Rate 24 Actual Respiratory Rate 18 Actual Respiratory Rate 16 Actual Respiratory Rate 20 Actual Respiratory Rate 14 Actual Respiratory Rate 17 Actual Respiratory Rate 21 Positive End Expiratory 5 Pressure Positive End Expiratory 5 Pressure Positive End Expiratory 5 Pressure Positive End Expiratory 5 Pressure Positive End Expiratory 5 Pressure Positive End Expiratory 5 Pressure Positive End Expiratory 5 Pressure Peak Inspiratory Airway 29 Pressure Peak Inspiratory Airway 20 Pressure Peak Inspiratory Airway 20 Pressure Peak Inspiratory Airway 17 Pressure Peak Inspiratory Airway 19 Pressure Peak Inspiratory Airway 19 Pressure Peak Inspiratory Airway 20 Pressure Results - Laboratory Findings CBC and BMP: 03/28/17 05:15 03/28/17 05:15 ABG ABG pH 7.47 pH Units (7.32-7.45) H 03/25/17 09:01 ABG pCO2 30 mmHg (35-45) L 03/25/17 09:01 ABG pO2 71 mmHg (85-104) L 03/25/17 09:01 ABG O2 Saturation 95 % (95-98) 03/25/17 09:01 PT/INR, D-dimer PT 12.5 Seconds (9.4-12.1) H 03/13/17 13:43 Abnormal lab findings: Abnormal lab results WBC 14.3 K/mcL (4.3-11.1) H 03/28/17 05:15 RBC 2.60 M/mcL (4.19-5.50) L 03/28/17 05:15 Hgb 7.9 g/dL (12.9-16.9) L 03/28/17 05:15 Hct 24.1 % (37.5-50.1) L 03/28/17 05:15 RDW 17.0 % (11.5-14.5) H 03/28/17 05:15 Immature Gran % 4.1 % (0-4) H 03/28/17 05:15 Neutrophils # 10.6 K/mcL (1.6-8.9) H 03/28/17 05:15 Nucleated RBCs/100 WBC 0.1 /100 WBC (0) H 03/26/17 04:48 Large Platelets Present (Not Present) A 03/21/17 03:45 Polychromasia 1+ (Not Present) A 03/21/17 03:45 Anisocytosis 1+ (Not Present) A 03/24/17 04:32 Macrocytosis Present (Not Present) A 03/21/17 03:45 PT 12.5 Seconds (9.4-12.1) H 03/13/17 13:43 APTT 36.4 Seconds (26.0-36.0) H 03/13/17 13:43 ABG pH 7.47 pH Units (7.32-7.45) H 03/25/17 09:01 ABG pCO2 30 mmHg (35-45) L 03/25/17 09:01 ABG pO2 71 mmHg (85-104) L 03/25/17 09:01 Chloride 96 mEq/L (98-107) L 03/28/17 05:15 BUN 118 mg/dL (8-23) H 03/28/17 05:15 Creatinine 7.17 mg/dL (0.70-1.30) H 03/28/17 05:15 Est GFR ( Amer) 9 (> 60) L 03/28/17 05:15 Est GFR (Non-Af Amer) 8 (> 60) L 03/28/17 05:15 Glucose 162 mg/dL (70-105) H 03/28/17 05:15 POC Glucose 165 (58-89) H 03/27/17 23:41 Calculated Osmolality 331 (280-300) H 03/28/17 05:15 Phosphorus 5.1 mg/dL (2.7-4.5) H 03/22/17 03:35 Iron 58 mcg/dL (65-175) L 03/18/17 11:18 Transferrin 125 mg/dL (203-362) L 03/18/17 11:18 AST 42 Units/L (13-39) H 03/26/17 04:48 Alkaline Phosphatase 285 Units/L (34-104) H 03/26/17 04:48 Troponin I 0.07 ng/mL (< 0.04) H* 03/16/17 21:10 B-Natriuretic Peptide 2742 pg/mL (Less than 100) H 03/13/17 22:40 Albumin 3.0 g/dL (3.5-5.7) L 03/26/17 04:48 Globulin 3.6 g/dL (2.4-3.5) H 03/26/17 04:48 Albumin/Globulin Ratio 0.8 (1.1-2.2) L 03/26/17 04:48 Amylase 22 Units/L (29-103) L 03/26/17 04:48 25-OH Vitamin D Total 24 ng/mL (30-80) L 03/18/17 11:18 Folate 43.0 ng/mL (3.0-16.0) H 03/18/17 11:18 Procalcitonin 30.02 ng/mL (<=0.10) H 03/26/17 00:23 PTH Intact 395.7 pg/ml (10.0-65.0) H 03/18/17 11:18 Ur Specimen Adequacy See below A 03/25/17 18:45 Urine Clarity Turbid (Clear) A 03/25/17 18:45 Urine pH >=9.0 pH Units (5.0-8.0) H 03/25/17 18:45 Urine Protein >=300 mg/dL (Neg-Trace) H 03/25/17 18:45 Urine Blood Moderate (Negative) H 03/25/17 18:45 Urine Bilirubin Small (Negative) H 03/25/17 18:45 Ur Leukocyte Esterase Large (Negative) H 03/25/17 18:45 Urine Microscopic WBC TNTC per hpf (0-3) H 03/25/17 18:45 Urine Bacteria Many per hpf (None-Few) H 03/25/17 18:45 Urine Mucus Many (Few) H 03/25/17 18:45 Urine Yeast Many per hpf (None Seen) H 18 18:45 Ur Oval Fat Bodies Present (Not Present) A 03/25/17 18:45 Tobramycin Trough 4.4 mcg/mL (0-2.0) H 03/25/17 04:34 Digoxin 0.5 ng/mL (0.8-2.0) L 03/13/17 13:43 Phenytoin 4.3 mcg/mL (10.0-20.0) L 03/15/17 04:12 Free Phenytoin 0.8 ug/mL (1.0-2.5) L 03/15/17 04:12 Total Phenytoin 5.2 ug/mL (10.0-20.0) L 03/15/17 04:12 Percent Free Phenytoin 15.4 % (8.0-14.0) H 03/15/17 04:12 Valproic Acid 14 mcg/mL (50-100) L 03/13/17 13:43 - Microbiology Findings Microbiology Findings: Microbiology, Last 48 Hours 03/21/17 10:37 Blood Culture - Final Peripheral Venipuncture No growth. 03/25/17 18:45 Urine Culture - Preliminary Urine,[place] Yeast Species Enterococcus species Legionella Antigen - Final Streptococcus pneumoniae Antigen (M - Final 03/21/17 10:37 Blood Culture - Final Peripheral Venipuncture No growth. - Clinical Findings Intake & Output: Intake & Output 03/27/17 03/28/17 03/28/17 23:59 07:59 15:59 Intake Total 768 / 768 431 / 431 Output Total 200 / 200 150 / 150 100 / 100 Balance 568 / 568 281 / 281 -100 / -100 Weight 79.3 kg - VTE Documentation of Mechanical Device: Intermittent pneumatic compression device Consult Discharge Plan - Plan Referrals: NONE,PCP [Primary Care Provider] - <Surendra Taveras M - Last Filed: 03/28/17 11:55> Date of Encounter: 03/28/17 Time of Encounter: 07:00 Assessment and Plan (1) Acute and chronic respiratory failure Current Visit: Yes Status: Chronic Qualifiers: Respiratory failure complication: hypoxia Qualified Code(s): J96.21 - Acute and chronic respiratory failure with hypoxia (2) Pneumonia Current Visit: Yes Status: Acute Qualifiers: Pneumonia type: due to Pseudomonas Laterality: bilateral Lung location: unspecified part of lung Qualified Code(s): J15.1 - Pneumonia due to Pseudomonas (3) ESRD (end stage renal disease) on dialysis Current Visit: No Status: Chronic Objective PUL Vital signs: Last Vital Signs Temp 99.2 F 03/28/17 08:30 Pulse 101 03/28/17 09:48 Resp 14 03/28/17 11:19 BP 111/45 03/28/17 11:23 Pulse Ox 94 03/28/17 11:19 Ventilator Settings Ventilator Settings: Ventilator Settings, Last 8 Hours Ventilator Mode VC+ Ventilator Mode VC+ Ventilator Mode VC+ Ventilator Mode VC+ Ventilator Mode VC+ Ventilator Mode VC+ Ventilator Mode VC+ Ventilator Tidal Volume 500 Setting Ventilator Tidal Volume 500 Setting Ventilator Tidal Volume 500 Setting Ventilator Tidal Volume 500 Setting Ventilator Tidal Volume 500 Setting Ventilator Tidal Volume 500 Setting Ventilator Tidal Volume 500 Setting Ventilator Respiratory Rate 14 Setting Ventilator Respiratory Rate 14 Setting Ventilator Respiratory Rate 14 Setting Ventilator Respiratory Rate 14 Setting Ventilator Respiratory Rate 14 Setting Ventilator Respiratory Rate 14 Setting Ventilator Respiratory Rate 14 Setting Actual Respiratory Rate 27 Actual Respiratory Rate 24 Actual Respiratory Rate 24 Actual Respiratory Rate 24 Actual Respiratory Rate 18 Actual Respiratory Rate 16 Actual Respiratory Rate 20 Positive End Expiratory 5 Pressure Positive End Expiratory 5 Pressure Positive End Expiratory 5 Pressure Positive End Expiratory 5 Pressure Positive End Expiratory 5 Pressure Positive End Expiratory 5 Pressure Positive End Expiratory 5 Pressure Peak Inspiratory Airway 22 Pressure Peak Inspiratory Airway 23 Pressure Peak Inspiratory Airway 29 Pressure Peak Inspiratory Airway 29 Pressure Peak Inspiratory Airway 20 Pressure Peak Inspiratory Airway 20 Pressure Peak Inspiratory Airway 17 Pressure Results - Laboratory Findings CBC and BMP: 03/28/17 05:15 03/28/17 05:15 ABG ABG pH 7.47 pH Units (7.32-7.45) H 03/25/17 09:01 ABG pCO2 30 mmHg (35-45) L 03/25/17 09:01 ABG pO2 71 mmHg (85-104) L 03/25/17 09:01 ABG O2 Saturation 95 % (95-98) 03/25/17 09:01 PT/INR, D-dimer PT 12.5 Seconds (9.4-12.1) H 03/13/17 13:43 Abnormal lab findings: Abnormal lab results WBC 14.3 K/mcL (4.3-11.1) H 03/28/17 05:15 RBC 2.60 M/mcL (4.19-5.50) L 03/28/17 05:15 Hgb 7.9 g/dL (12.9-16.9) L 03/28/17 05:15 Hct 24.1 % (37.5-50.1) L 03/28/17 05:15 RDW 17.0 % (11.5-14.5) H 03/28/17 05:15 Immature Gran % 4.1 % (0-4) H 03/28/17 05:15 Neutrophils # 10.6 K/mcL (1.6-8.9) H 03/28/17 05:15 Nucleated RBCs/100 WBC 0.1 /100 WBC (0) H 03/26/17 04:48 Large Platelets Present (Not Present) A 03/21/17 03:45 Polychromasia 1+ (Not Present) A 03/21/17 03:45 Anisocytosis 1+ (Not Present) A 03/24/17 04:32 Macrocytosis Present (Not Present) A 03/21/17 03:45 PT 12.5 Seconds (9.4-12.1) H 03/13/17 13:43 APTT 36.4 Seconds (26.0-36.0) H 03/13/17 13:43 ABG pH 7.47 pH Units (7.32-7.45) H 03/25/17 09:01 ABG pCO2 30 mmHg (35-45) L 03/25/17 09:01 ABG pO2 71 mmHg (85-104) L 03/25/17 09:01 Chloride 96 mEq/L (98-107) L 03/28/17 05:15 BUN 118 mg/dL (8-23) H 03/28/17 05:15 Creatinine 7.17 mg/dL (0.70-1.30) H 03/28/17 05:15 Est GFR ( Amer) 9 (> 60) L 03/28/17 05:15 Est GFR (Non-Af Amer) 8 (> 60) L 03/28/17 05:15 Glucose 162 mg/dL (70-105) H 03/28/17 05:15 POC Glucose 165 (58-89) H 03/27/17 23:41 Calculated Osmolality 331 (280-300) H 03/28/17 05:15 Phosphorus 5.1 mg/dL (2.7-4.5) H 03/22/17 03:35 Iron 58 mcg/dL (65-175) L 03/18/17 11:18 Transferrin 125 mg/dL (203-362) L 03/18/17 11:18 AST 42 Units/L (13-39) H 03/26/17 04:48 Alkaline Phosphatase 285 Units/L (34-104) H 03/26/17 04:48 Troponin I 0.07 ng/mL (< 0.04) H* 03/16/17 21:10 B-Natriuretic Peptide 2742 pg/mL (Less than 100) H 03/13/17 22:40 Albumin 3.0 g/dL (3.5-5.7) L 03/26/17 04:48 Globulin 3.6 g/dL (2.4-3.5) H 03/26/17 04:48 Albumin/Globulin Ratio 0.8 (1.1-2.2) L 03/26/17 04:48 Amylase 22 Units/L (29-103) L 03/26/17 04:48 25-OH Vitamin D Total 24 ng/mL (30-80) L 03/18/17 11:18 Folate 43.0 ng/mL (3.0-16.0) H 03/18/17 11:18 Procalcitonin 30.02 ng/mL (<=0.10) H 03/26/17 00:23 PTH Intact 395.7 pg/ml (10.0-65.0) H 03/18/17 11:18 Ur Specimen Adequacy See below A 03/25/17 18:45 Urine Clarity Turbid (Clear) A 03/25/17 18:45 Urine pH >=9.0 pH Units (5.0-8.0) H 03/25/17 18:45 Urine Protein >=300 mg/dL (Neg-Trace) H 03/25/17 18:45 Urine Blood Moderate (Negative) H 03/25/17 18:45 Urine Bilirubin Small (Negative) H 03/25/17 18:45 Ur Leukocyte Esterase Large (Negative) H 03/25/17 18:45 Urine Microscopic WBC TNTC per hpf (0-3) H 03/25/17 18:45 Urine Bacteria Many per hpf (None-Few) H 03/25/17 18:45 Urine Mucus Many (Few) H 03/25/17 18:45 Urine Yeast Many per hpf (None Seen) H 03/25/17 18:45 Ur Oval Fat Bodies Present (Not Present) A 03/25/17 18:45 Tobramycin Trough 4.4 mcg/mL (0-2.0) H 03/25/17 04:34 Digoxin 0.5 ng/mL (0.8-2.0) L 03/13/17 13:43 Phenytoin 4.3 mcg/mL (10.0-20.0) L 03/15/17 04:12 Free Phenytoin 0.8 ug/mL (1.0-2.5) L 03/15/17 04:12 Total Phenytoin 5.2 ug/mL (10.0-20.0) L 03/15/17 04:12 Percent Free Phenytoin 15.4 % (8.0-14.0) H 03/15/17 04:12 Valproic Acid 14 mcg/mL (50-100) L 03/13/17 13:43 - Microbiology Findings Microbiology Findings: Microbiology, Last 48 Hours 03/21/17 10:37 Blood Culture - Final Peripheral Venipuncture No growth. 03/25/17 18:45 Urine Culture - Preliminary Urine,[place] Yeast Species Enterococcus species Legionella Antigen - Final Streptococcus pneumoniae Antigen (M - Final 03/21/17 10:37 Blood Culture - Final Peripheral Venipuncture No growth. - Clinical Findings Intake & Output: Intake & Output 03/27/17 03/28/17 03/28/17 23:59 07:59 15:59 Intake Total 768 / 768 431 / 431 700 / 700 Output Total 200 / 200 150 / 150 100 / 100 Balance 568 / 568 281 / 281 600 / 600 Weight 79.3 kg - Attending Attestation I examined this patient and my medical decision-making was reviewed with the Resident Physician. I agree with the documented findings, disposition and treatment plan as described except to the extent set forth below. Patient seen and examined. Labs, radiology, chart personally reviewed. Agree with resident's history and physical, assessment, plan with following comments: CONTACT PERSON: Patient follows commands, Pulmonary: Acceptable oxygenation and ventilation and vent dependent Cardiovascular: stable GI: Nutrition per dietary and GI prophylaxis per routine Heme: DVT prophylaxis per routine ID: Continue antibiotics and plan to de-escalation. Infectious disease is following, and when final mentation is made that can be managed in long-term vent facility then he can be transferred. Renal; patient is hemodialysis Endorcine: blood glucose is monitored Lines: all lines checked and no evidence of infections Skin: skin care to prevent pressure ulcers per nursing routine care
[2017-03-28] MEDS: Pantoprazole 40 MG VIAL IVP SCH (09:23)
[2017-03-28] MEDS: Valproic Acid Oral Soln 250 MG/5 ML UDC GTUBE SCH ×2 (09:23→20:24)
[2017-03-28] MEDS: *HR* Amiodarone 200 MG TABLET GTUBE SCH (09:23)
[2017-03-28] MEDS: Chlorhexidine Rinse 15 ML MOUTHWASH MM SCH ×2 (09:23→20:24)
[2017-03-28] MEDS: Insulin DETEMIR 100 UNIT/ML X5UNITS SQ SCH (09:30)
[2017-03-28] MEDS: amLODIPine 5 MG TABLET GTUBE SCH (11:52)
[2017-03-28] MEDS: Leptospermum Honey Gel 44 ML TUBE TP SCH ×2 (13:15→20:39)
[2017-03-28] MEDS: Miconazole w/zinc oxide&karaya 92 APPL/92 GM TUBE TP SCH ×2 (13:15→21:11)
[2017-03-28] MEDS ORDERED: Vancomycin 500 MG in 0.9 % Sodium Chloride Mini Bag 100 ML IVPB ONE (16:00)
[2017-03-28] MEDS: WATER IVPB SCH (17:26)
[2017-03-28] MEDS: D5 IVPB SCH (17:26)
[2017-03-28] MEDS: TOBRAMYCIN SULF IVPB SCH (17:26)
[2017-03-29] MEDS: Insulin LISPRO 300 UNITS/3 ML VIAL SQ SCH ×6 (00:34→21:21)
[2017-03-29] MEDS: Ipratropium/Albuterol Neb 3 ML IH SCH ×4 (03:29→22:41)
[2017-03-29] MEDS: *HR* Heparin 5,000 UNIT/ML VIAL SQ SCH ×3 (05:09→21:21)
[2017-03-29] MEDS: Valproic Acid Oral Soln 250 MG/5 ML UDC GTUBE SCH ×2 (07:50→21:21)
[2017-03-29] MEDS: Pantoprazole 40 MG VIAL IVP SCH (07:51)
[2017-03-29] MEDS: *HR* Amiodarone 200 MG TABLET GTUBE SCH (07:51)
[2017-03-29] MEDS: Chlorhexidine Rinse 15 ML MOUTHWASH MM SCH ×2 (07:53→21:21)
[2017-03-29] MEDS: Insulin DETEMIR 100 UNIT/ML X5UNITS SQ SCH (08:01)
[2017-03-29] MEDS: Miconazole w/zinc oxide&karaya 92 APPL/92 GM TUBE TP SCH ×2 (08:13→21:21)
[2017-03-29] MEDS: Leptospermum Honey Gel 44 ML TUBE TP SCH ×2 (08:13→21:20)
--- NOTE | 2017-03-29 08:28 | Pulmonology Progress Note ---
<DarcySurendra M - Last Filed: 03/29/17 09:54> Date of Encounter: 03/29/17 Assessment and Plan (1) Acute and chronic respiratory failure Current Visit: Yes Status: Chronic Qualifiers: Respiratory failure complication: hypoxia Qualified Code(s): J96.21 - Acute and chronic respiratory failure with hypoxia (2) Pneumonia Current Visit: Yes Status: Acute Qualifiers: Pneumonia type: due to Pseudomonas Laterality: bilateral Lung location: unspecified part of lung Qualified Code(s): J15.1 - Pneumonia due to Pseudomonas (3) ESRD (end stage renal disease) on dialysis Current Visit: No Status: Chronic Objective PUL Vital signs: Last Vital Signs Temp 99.7 F H 03/29/17 08:00 Pulse 112 03/29/17 08:00 Resp 28 03/29/17 08:00 BP 124/68 03/29/17 08:00 Pulse Ox 99 03/29/17 08:00 Ventilator Settings Ventilator Settings: Ventilator Settings, Last 8 Hours Ventilator Mode VC+ Ventilator Mode VC+ Ventilator Mode VC+ Ventilator Mode VC+ Ventilator Mode VC+ Ventilator Mode VC+ Ventilator Tidal Volume 500 Setting Ventilator Tidal Volume 500 Setting Ventilator Tidal Volume 500 Setting Ventilator Tidal Volume 500 Setting Ventilator Tidal Volume 500 Setting Ventilator Tidal Volume 500 Setting Ventilator Respiratory Rate 14 Setting Ventilator Respiratory Rate 14 Setting Ventilator Respiratory Rate 14 Setting Ventilator Respiratory Rate 14 Setting Ventilator Respiratory Rate 14 Setting Ventilator Respiratory Rate 14 Setting Actual Respiratory Rate 28 Actual Respiratory Rate 17 Actual Respiratory Rate 17 Actual Respiratory Rate 19 Actual Respiratory Rate 19 Actual Respiratory Rate 19 Positive End Expiratory 5 Pressure Positive End Expiratory 5 Pressure Positive End Expiratory 5 Pressure Positive End Expiratory 5 Pressure Positive End Expiratory 5 Pressure Positive End Expiratory 5 Pressure Peak Inspiratory Airway 21 Pressure Peak Inspiratory Airway 18 Pressure Peak Inspiratory Airway 17 Pressure Peak Inspiratory Airway 17 Pressure Peak Inspiratory Airway 16 Pressure Results - Laboratory Findings CBC and BMP: 03/28/17 05:15 03/28/17 05:15 ABG ABG pH 7.47 pH Units (7.32-7.45) H 03/25/17 09:01 ABG pCO2 30 mmHg (35-45) L 03/25/17 09:01 ABG pO2 71 mmHg (85-104) L 03/25/17 09:01 ABG O2 Saturation 95 % (95-98) 03/25/17 09:01 PT/INR, D-dimer PT 12.5 Seconds (9.4-12.1) H 03/13/17 13:43 Abnormal lab findings: Abnormal lab results WBC 14.3 K/mcL (4.3-11.1) H 03/28/17 05:15 RBC 2.60 M/mcL (4.19-5.50) L 03/28/17 05:15 Hgb 7.9 g/dL (12.9-16.9) L 03/28/17 05:15 Hct 24.1 % (37.5-50.1) L 03/28/17 05:15 RDW 17.0 % (11.5-14.5) H 03/28/17 05:15 Immature Gran % 4.1 % (0-4) H 03/28/17 05:15 Neutrophils # 10.6 K/mcL (1.6-8.9) H 03/28/17 05:15 Nucleated RBCs/100 WBC 0.1 /100 WBC (0) H 03/26/17 04:48 Large Platelets Present (Not Present) A 03/21/17 03:45 Polychromasia 1+ (Not Present) A 03/21/17 03:45 Anisocytosis 1+ (Not Present) A 03/24/17 04:32 Macrocytosis Present (Not Present) A 03/21/17 03:45 PT 12.5 Seconds (9.4-12.1) H 03/13/17 13:43 APTT 36.4 Seconds (26.0-36.0) H 03/13/17 13:43 ABG pH 7.47 pH Units (7.32-7.45) H 03/25/17 09:01 ABG pCO2 30 mmHg (35-45) L 03/25/17 09:01 ABG pO2 71 mmHg (85-104) L 03/25/17 09:01 Chloride 96 mEq/L (98-107) L 03/28/17 05:15 BUN 118 mg/dL (8-23) H 03/28/17 05:15 Creatinine 7.17 mg/dL (0.70-1.30) H 03/28/17 05:15 Est GFR ( Amer) 9 (> 60) L 03/28/17 05:15 Est GFR (Non-Af Amer) 8 (> 60) L 03/28/17 05:15 Glucose 162 mg/dL (70-105) H 03/28/17 05:15 POC Glucose 134 (58-89) H 03/29/17 00:08 Calculated Osmolality 331 (280-300) H 03/28/17 05:15 Phosphorus 5.1 mg/dL (2.7-4.5) H 03/22/17 03:35 Iron 58 mcg/dL (65-175) L 03/18/17 11:18 Transferrin 125 mg/dL (203-362) L 03/18/17 11:18 AST 42 Units/L (13-39) H 03/26/17 04:48 Alkaline Phosphatase 285 Units/L (34-104) H 03/26/17 04:48 Troponin I 0.07 ng/mL (< 0.04) H* 03/16/17 21:10 B-Natriuretic Peptide 2742 pg/mL (Less than 100) H 03/13/17 22:40 Albumin 3.0 g/dL (3.5-5.7) L 03/26/17 04:48 Globulin 3.6 g/dL (2.4-3.5) H 03/26/17 04:48 Albumin/Globulin Ratio 0.8 (1.1-2.2) L 03/26/17 04:48 Amylase 22 Units/L (29-103) L 03/26/17 04:48 25-OH Vitamin D Total 24 ng/mL (30-80) L 03/18/17 11:18 Folate 43.0 ng/mL (3.0-16.0) H 03/18/17 11:18 Procalcitonin 30.02 ng/mL (<=0.10) H 03/26/17 00:23 PTH Intact 395.7 pg/ml (10.0-65.0) H 03/18/17 11:18 Ur Specimen Adequacy See below A 03/25/17 18:45 Urine Clarity Turbid (Clear) A 03/25/17 18:45 Urine pH >=9.0 pH Units (5.0-8.0) H 03/25/17 18:45 Urine Protein >=300 mg/dL (Neg-Trace) H 03/25/17 18:45 Urine Blood Moderate (Negative) H 03/25/17 18:45 Urine Bilirubin Small (Negative) H 03/25/17 18:45 Ur Leukocyte Esterase Large (Negative) H 03/25/17 18:45 Urine Microscopic WBC TNTC per hpf (0-3) H 03/25/17 18:45 Urine Bacteria Many per hpf (None-Few) H 03/25/17 18:45 Urine Mucus Many (Few) H 03/25/17 18:45 Urine Yeast Many per hpf (None Seen) H 03/25/17 18:45 Ur Oval Fat Bodies Present (Not Present) A 03/25/17 18:45 Tobramycin Trough 4.4 mcg/mL (0-2.0) H 03/25/17 04:34 Digoxin 0.5 ng/mL (0.8-2.0) L 03/13/17 13:43 Phenytoin 4.3 mcg/mL (10.0-20.0) L 03/15/17 04:12 Free Phenytoin 0.8 ug/mL (1.0-2.5) L 03/15/17 04:12 Total Phenytoin 5.2 ug/mL (10.0-20.0) L 03/15/17 04:12 Percent Free Phenytoin 15.4 % (8.0-14.0) H 03/15/17 04:12 Valproic Acid 14 mcg/mL (50-100) L 03/13/17 13:43 - Microbiology Findings Microbiology Findings: Microbiology, Last 48 Hours 03/25/17 18:45 Urine Culture - Final Urine,[place] Yeast Species Vancomycin Resistant Enterococcus faecium Legionella Antigen - Final Streptococcus pneumoniae Antigen (M - Final 03/21/17 10:37 Blood Culture - Final Peripheral Venipuncture No growth. - Clinical Findings Intake & Output: Intake & Output 03/28/17 03/29/17 03/29/17 23:59 07:59 15:59 Intake Total 1009 / 1009 513 / 513 100 / 100 Output Total 400 / 400 Balance 609 / 609 513 / 513 100 / 100 Weight 79.4 kg Consult Discharge Plan - Plan Referrals: Surendra Taveras MD [Partnered Physician] - 04/24/17 2:15 pm Surinder Fung DO [Non-Partnered Physician] - 04/10/17 1:20 pm (Please fax d/c info and H&P to [phone]) - Attending Attestation I examined this patient and my medical decision-making was reviewed with the Resident Physician. I agree with the documented findings, disposition and treatment plan as described except to the extent set forth below. Patient seen and examined. Labs, radiology, chart personally reviewed. Agree with resident's history and physical, assessment, plan with following comments: [employer]ER: Patient follows commands, no significant changes Pulmonary: Acceptable oxygenation and ventilation. Continue vent support and no plan for weaning since patient is dependent. Cardiovascular: stable GI: Nutrition per dietary and GI prophylaxis per routine Heme: DVT prophylaxis per routine ID: Continue antibiotics and plan to de-escalation. Appreciate infectious disease team assistance regarding antibiotics. Renal; urine out put and renal funtion reviewed Endorcine: blood glucose is monitored Lines: all lines checked and no evidence of infections Skin: skin care to prevent pressure ulcers per nursing routine care Plan patient to be transferred either to 2 [address]. or long-term vent facility. <Octavio Jacobs - Last Filed: 03/29/17 14:41> Date of Encounter: 03/29/17 Time of Encounter: 08:00 Assessment and Plan (1) VRE (vancomycin resistant enterococcus) culture positive Current Visit: Yes Status: Acute Urine cultures grew VRE enterococcus, dc'ing vanc, starting Linezolid, dc'ing buspar due to serotonin syndrome potential. (2) Acute and chronic respiratory failure Current Visit: Yes Status: Chronic Chronic tracheostomy s/p prior intracerebral hemorrhage. Stable vent settings. Initial exacerbation of resp failure likely secondary to MDRO pneumonia; currently being treated with Tobramycin and Cefepime (day 10). Qualifiers: Respiratory failure complication: hypoxia Qualified Code(s): J96.21 - Acute and chronic respiratory failure with hypoxia (3) ESRD (end stage renal disease) Current Visit: Yes Status: Acute Following Nephrology. On hemodialysis, last received . [facility] has a dialysis chair available for patient once ready for discharge. Avoiding nephrotoxins, strict I/Os. (4) Pneumonia Current Visit: Yes Status: Acute MDRO pseudomonas pneumonia sensitive to and being treated with tobramycin and cefepime. Qualifiers: Pneumonia type: due to Pseudomonas Laterality: bilateral Lung location: unspecified part of lung Qualified Code(s): J15.1 - Pneumonia due to Pseudomonas Subjective Principal diagnosis: PEA Arrest Interval history: Nephro and social work have dialysis set up at [facility]. Patient on Fentanyl 25mcg q4h prn, states pain is worse today. Otherwise stable. Objective PUL Vital signs: Last Vital Signs Temp 98.7 F 03/29/17 04:57 Pulse 115 03/29/17 04:00 Resp 18 03/29/17 04:00 BP 126/46 03/29/17 04:00 Pulse Ox 100 03/29/17 04:00 General appearance: other (chronic thracheostomy, with vent, stable vent settings) Eyes: nonicteric ENT: oropharynx moist Neck: supple Auscultation: bilateral: diminished breath sounds Integumentary: normal Extremities: no cyanosis Musculoskeletal: no deformities Ventilator Settings Ventilator Settings: Ventilator Settings, Last 8 Hours Ventilator Mode VC+ Ventilator Mode VC+ Ventilator Mode VC+ Ventilator Mode VC+ Ventilator Tidal Volume 500 Setting Ventilator Tidal Volume 500 Setting Ventilator Tidal Volume 500 Setting Ventilator Tidal Volume 500 Setting Ventilator Respiratory Rate 14 Setting Ventilator Respiratory Rate 14 Setting Ventilator Respiratory Rate 14 Setting Ventilator Respiratory Rate 14 Setting Actual Respiratory Rate 17 Actual Respiratory Rate 19 Actual Respiratory Rate 19 Actual Respiratory Rate 19 Positive End Expiratory 5 Pressure Positive End Expiratory 5 Pressure Positive End Expiratory 5 Pressure Positive End Expiratory 5 Pressure Peak Inspiratory Airway 18 Pressure Peak Inspiratory Airway 17 Pressure Peak Inspiratory Airway 17 Pressure Peak Inspiratory Airway 16 Pressure Results - Laboratory Findings CBC and BMP: 03/28/17 05:15 03/28/17 05:15 ABG ABG pH 7.47 pH Units (7.32-7.45) H 03/25/17 09:01 ABG pCO2 30 mmHg (35-45) L 03/25/17 09:01 ABG pO2 71 mmHg (85-104) L 03/25/17 09:01 ABG O2 Saturation 95 % (95-98) 03/25/17 09:01 PT/INR, D-dimer PT 12.5 Seconds (9.4-12.1) H 03/13/17 13:43 Abnormal lab findings: Abnormal lab results WBC 14.3 K/mcL (4.3-11.1) H 03/28/17 05:15 RBC 2.60 M/mcL (4.19-5.50) L 03/28/17 05:15 Hgb 7.9 g/dL (12.9-16.9) L 03/28/17 05:15 Hct 24.1 % (37.5-50.1) L 03/28/17 05:15 RDW 17.0 % (11.5-14.5) H 03/28/17 05:15 Immature Gran % 4.1 % (0-4) H 03/28/17 05:15 Neutrophils # 10.6 K/mcL (1.6-8.9) H 03/28/17 05:15 Nucleated RBCs/100 WBC 0.1 /100 WBC (0) H 03/26/17 04:48 Large Platelets Present (Not Present) A 03/21/17 03:45 Polychromasia 1+ (Not Present) A 03/21/17 03:45 Anisocytosis 1+ (Not Present) A 03/24/17 04:32 Macrocytosis Present (Not Present) A 03/21/17 03:45 PT 12.5 Seconds (9.4-12.1) H 03/13/17 13:43 APTT 36.4 Seconds (26.0-36.0) H 03/13/17 13:43 ABG pH 7.47 pH Units (7.32-7.45) H 03/25/17 09:01 ABG pCO2 30 mmHg (35-45) L 03/25/17 09:01 ABG pO2 71 mmHg (85-104) L 03/25/17 09:01 Chloride 96 mEq/L (98-107) L 03/28/17 05:15 BUN 118 mg/dL (8-23) H 03/28/17 05:15 Creatinine 7.17 mg/dL (0.70-1.30) H 03/28/17 05:15 Est GFR ( Amer) 9 (> 60) L 03/28/17 05:15 Est GFR (Non-Af Amer) 8 (> 60) L 03/28/17 05:15 Glucose 162 mg/dL (70-105) H 03/28/17 05:15 POC Glucose 134 (58-89) H 03/29/17 00:08 Calculated Osmolality 331 (280-300) H 03/28/17 05:15 Phosphorus 5.1 mg/dL (2.7-4.5) H 03/22/17 03:35 Iron 58 mcg/dL (65-175) L 03/18/17 11:18 Transferrin 125 mg/dL (203-362) L 03/18/17 11:18 AST 42 Units/L (13-39) H 03/26/17 04:48 Alkaline Phosphatase 285 Units/L (34-104) H 03/26/17 04:48 Troponin I 0.07 ng/mL (< 0.04) H* 03/16/17 21:10 B-Natriuretic Peptide 2742 pg/mL (Less than 100) H 03/13/17 22:40 Albumin 3.0 g/dL (3.5-5.7) L 03/26/17 04:48 Globulin 3.6 g/dL (2.4-3.5) H 03/26/17 04:48 Albumin/Globulin Ratio 0.8 (1.1-2.2) L 03/26/17 04:48 Amylase 22 Units/L (29-103) L 03/26/17 04:48 25-OH Vitamin D Total 24 ng/mL (30-80) L 03/18/17 11:18 Folate 43.0 ng/mL (3.0-16.0) H 03/18/17 11:18 Procalcitonin 30.02 ng/mL (<=0.10) H 03/26/17 00:23 PTH Intact 395.7 pg/ml (10.0-65.0) H 03/18/17 11:18 Ur Specimen Adequacy See below A 03/25/17 18:45 Urine Clarity Turbid (Clear) A 03/25/17 18:45 Urine pH >=9.0 pH Units (5.0-8.0) H 03/25/17 18:45 Urine Protein >=300 mg/dL (Neg-Trace) H 03/25/17 18:45 Urine Blood Moderate (Negative) H 03/25/17 18:45 Urine Bilirubin Small (Negative) H 03/25/17 18:45 Ur Leukocyte Esterase Large (Negative) H 03/25/17 18:45 Urine Microscopic WBC TNTC per hpf (0-3) H 03/25/17 18:45 Urine Bacteria Many per hpf (None-Few) H 03/25/17 18:45 Urine Mucus Many (Few) H 03/25/17 18:45 Urine Yeast Many per hpf (None Seen) H 03/25/17 18:45 Ur Oval Fat Bodies Present (Not Present) A 03/25/17 18:45 Tobramycin Trough 4.4 mcg/mL (0-2.0) H 03/25/17 04:34 Digoxin 0.5 ng/mL (0.8-2.0) L 03/13/17 13:43 Phenytoin 4.3 mcg/mL (10.0-20.0) L 03/15/17 04:12 Free Phenytoin 0.8 ug/mL (1.0-2.5) L 03/15/17 04:12 Total Phenytoin 5.2 ug/mL (10.0-20.0) L 03/15/17 04:12 Percent Free Phenytoin 15.4 % (8.0-14.0) H 03/15/17 04:12 Valproic Acid 14 mcg/mL (50-100) L 03/13/17 13:43 - Microbiology Findings Microbiology Findings: Microbiology, Last 48 Hours 03/21/17 10:37 Blood Culture - Final Peripheral Venipuncture No growth. 03/25/17 18:45 Urine Culture - Preliminary Urine,[place] Yeast Species Enterococcus species Legionella Antigen - Final Streptococcus pneumoniae Antigen (M - Final - Clinical Findings Intake & Output: Intake & Output 03/28/17 03/29/17 03/29/17 23:59 07:59 15:59 Intake Total 1009 / 1009 513 / 513 Output Total 400 / 400 Balance 609 / 609 513 / 513 Weight 79.4 kg - VTE Documentation of Mechanical Device: Intermittent pneumatic compression device
--- NOTE | 2017-03-29 12:30 | Nephrology Progress Note ---
Date of Encounter: 03/29/17 Time of Encounter: 12:30 - Assessment and Plan (1) ESRD (end stage renal disease) Status: Acute s/p HD yesterday, next planned tomorrow Lyte WNL Continue nepro for feeds (2) Anemia Status: Acute Hgb noted at 7.9, will monitor Transfusion parameter with hgb 7-8 Qualifiers: Anemia type: due to chronic kidney disease Chronic kidney disease stage: on chronic dialysis Qualified Code(s): N18.6 - End stage renal disease; D63.1 - Anemia in chronic kidney disease; D63.1 - Anemia in chronic kidney disease; Z99.2 - Dependence on renal dialysis; Z99.2 - Dependence on renal dialysis; Z99.2 - Dependence on renal dialysis; Z99.2 - Dependence on renal dialysis (3) Acute and chronic respiratory failure Status: Acute Per pulm Qualifiers: Respiratory failure complication: hypoxia Qualified Code(s): J96.21 - Acute and chronic respiratory failure with hypoxia Subjective Principal diagnosis: PEA Arrest Interval history: interim events noted, pt seen and examined remains intuv=bated and sedated. No family present at bedside. Objective - Vital Signs Vital signs: Vital Signs Temp Pulse Resp BP Pulse Ox 03/29/17 11:54 99.1 F 03/29/17 11:11 109 26 156/80 99 03/29/17 10:00 113 28 132/73 99 03/29/17 08:00 99.7 F H 112 28 124/68 99 03/29/17 07:18 14 124/68 100 03/29/17 06:00 113 18 117/66 100 03/29/17 04:57 98.7 F 03/29/17 04:00 115 18 126/46 100 03/29/17 03:30 18 126/46 100 03/29/17 02:18 23 118/51 97 03/29/17 02:00 115 18 118/51 98 03/29/17 00:19 99.1 F 03/29/17 00:00 115 03/28/17 23:57 17 133/44 98 03/28/17 21:51 20 100 03/28/17 21:10 99.4 F 03/28/17 20:47 99.7 F H 96 23 108/43 100 03/28/17 20:23 25 100 03/28/17 17:05 20 117/87 100 03/28/17 16:12 99.7 F H 03/28/17 15:50 24 102/46 91 03/28/17 14:00 101 21 102/46 99 03/28/17 13:39 21 119/57 99 03/28/17 13:00 101 Intake and Output 03/28/17 03/29/17 03/29/17 23:59 07:59 15:59 Intake Total 1009 / 1009 613 / 613 150 / 150 Output Total 400 / 400 Balance 609 / 609 613 / 613 150 / 150 Intake: IV Fluids 100 / 100 Zosyn 3.375 GM In 0.9 % Sodium 100 / 100 Chloride 100 ML @ 25 mls/hr IVPB Q12H [facility] Rx#:[id number] Oral 0 / 0 Tube Feeding 889 / 889 453 / 453 Free Water 120 / 120 60 / 60 100 / 100 Free Water Intake Amount 50 / 50 Output: Rectal Tube 400 / 400 Other: Weight 79.4 kg Blood Glucose* 161 247 159 Patient Weight 03/29/17 23:59 Weight 79.4 kg - General Appearance General appearance: Present: chronically ill, intubated EENT: Present: ATNC Additional Comments: trach in place Neck: Present: no JVD, supple Respiratory: Present: course breath sounds Cardiology: Present: no edema, normal S1, normal S2 Dialysis Vascular Access: Arteriovenous Fistula thrill: Yes bruit: Yes Gastrointestinal: Present: no tenderness, no guarding Additional Comments: +PEG Integumentary: Present: warm and dry Additional Comments: Awake and communicated nonverbally Musculoskeletal: Present: no deformities Psychiatric: Present: depressed - Lab 04/02/17 03:33 04/02/17 03:33 Most recent lab results ABG pH 7.47 pH Units (7.32-7.45) H 03/25/17 09:01 ABG pCO2 30 mmHg (35-45) L 03/25/17 09:01 ABG pO2 71 mmHg (85-104) L 03/25/17 09:01 ABG HCO3 21 mEq/L (21-27) 03/25/17 09:01 ABG O2 Saturation 95 % (95-98) 03/25/17 09:01 Calcium 10.1 mg/dL (8.6-10.3) 03/28/17 05:15 Phosphorus 5.1 mg/dL (2.7-4.5) H 03/22/17 03:35 Magnesium 2.3 mg/dL (1.6-2.6) 03/25/17 04:34 - VTE Documentation of Mechanical Device: Intermittent pneumatic compression device Consult Discharge Plan - Plan Additional Instructions: Please complete course of Linezolid and Fluconzaole for a total of 9 more days. Please follow-up with a primary care physician in 2-3 days. Referrals: Surendra Taveras MD [Partnered Physician] - 04/24/17 2:15 pm Surinder Fung DO [Non-Partnered Physician] - (Patient is going to [facility] no PCP appointment is needed) Prescriptions: Fluconazole [Diflucan] 200 mg PO DAILY #9 tab Leptospermum Honey [Medihoney] 1 appl TP BID #1 tube Linezolid [Zyvox] 600 mg PO BID #18 tablet Miconazole w/zinc oxide&karaya [Antifungal Extra Thick] 1 appl TP BID #1 tube
[2017-03-29] MEDS: Fluconazole 200 MG/100 ML 200 MG/100 ML BAG IVPB SCH (16:00)
[2017-03-30] MEDS: Insulin LISPRO 300 UNITS/3 ML VIAL SQ SCH ×6 (01:10→21:47)
[2017-03-30] MEDS: Ipratropium/Albuterol Neb 3 ML IH SCH ×4 (03:59→22:10)
[2017-03-30 04:09] LABS: Basophils # 0.2 K/mcL (0.0-0.2); Basophils % 0.9 %; Eosinophils # 0.7 K/mcL (0.0-0.6); Hematocrit 24.9 % (37.5-50.1); Hemoglobin 8.2 g/dL (12.9-16.9); Immature Granulocytes % 5.4 % (0-4); Lymphocytes # 1.4 K/mcL (0.6-4.6); Lymphocytes % 7.8 %; Mean Corpuscular HGB Conc 32.9 g/dL (31.6-35.5); Mean Corpuscular Hemoglobin 30.3 pg (28.0-33.3); Mean Corpuscular Volume 91.9 fL (83.0-100.0); Mean Platelet Volume 11.7 fL (9.4-12.4); Monocytes # 1.4 K/mcL (0.0-1.3); Monocytes % 7.7 %; Neutrophils # 13.3 K/mcL (1.6-8.9); Platelet Count 443 K/mcL (140-400); Red Blood Count 2.71 M/mcL (4.19-5.50); Red Cell Distribution Width 16.3 % (11.5-14.5); Segmented Neutrophils % 74.2 %
[2017-03-30 04:48] LABS: Albumin 3.4 g/dL (3.5-5.7); Albumin/Globulin Ratio 0.9 (1.1-2.2); Bilirubin,Total 0.4 mg/dL (0.3-1.0); Calcium 10.1 mg/dL (8.6-10.3); Globulin 3.6 g/dL (2.4-3.5)
[2017-03-30] MEDS: *HR* Heparin 5,000 UNIT/ML VIAL SQ SCH ×3 (06:34→21:46)
[2017-03-30] MEDS ORDERED: 0.9 % Sodium Chloride 2,000 ML ONE (08:07)
[2017-03-30] MEDS: Pantoprazole 40 MG VIAL IVP SCH (08:19)
[2017-03-30] MEDS ORDERED: 0.9 % Sodium Chloride 250 ML IVC PRN (08:54)
[2017-03-30] MEDS ORDERED: 0.9 % Sodium Chloride 1,000 ML PRIME SCH (09:00)
[2017-03-30] MEDS: *HR* Amiodarone 200 MG TABLET GTUBE SCH (10:22)
[2017-03-30] MEDS: Chlorhexidine Rinse 15 ML MOUTHWASH MM SCH ×2 (10:23→21:46)
[2017-03-30] MEDS: Valproic Acid Oral Soln 250 MG/5 ML UDC GTUBE SCH ×2 (10:23→21:46)
[2017-03-30] MEDS: Insulin DETEMIR 100 UNIT/ML X5UNITS SQ SCH (10:24)
[2017-03-30] MEDS: Leptospermum Honey Gel 44 ML TUBE TP SCH ×2 (10:25→21:47)
[2017-03-30] MEDS: Miconazole w/zinc oxide&karaya 92 APPL/92 GM TUBE TP SCH ×2 (10:25→21:47)
--- NOTE | 2017-03-30 14:01 | Nephrology Progress Note ---
Date of Encounter: 03/30/17 Time of Encounter: 11:00 - Assessment and Plan (1) ESRD (end stage renal disease) Status: Acute Continue HD with UF as tolerated Continue nepro feeds Lytes WNL (2) Anemia Status: Acute Hgb noted at 8.2, stable Qualifiers: Anemia type: due to chronic kidney disease Chronic kidney disease stage: on chronic dialysis Qualified Code(s): N18.6 - End stage renal disease; D63.1 - Anemia in chronic kidney disease; D63.1 - Anemia in chronic kidney disease; Z99.2 - Dependence on renal dialysis; Z99.2 - Dependence on renal dialysis; Z99.2 - Dependence on renal dialysis; Z99.2 - Dependence on renal dialysis (3) Acute and chronic respiratory failure Status: Acute Per pulm Qualifiers: Respiratory failure complication: hypoxia Qualified Code(s): J96.21 - Acute and chronic respiratory failure with hypoxia Subjective Principal diagnosis: PEA Arrest Interval history: Pt seen and examined receiving HD with no current issues Objective - Vital Signs Vital signs: Vital Signs Temp Pulse Resp BP Pulse Ox 03/30/17 11:30 97.5 F L 90 22 163/65 97 03/30/17 11:00 86 03/30/17 10:32 14 100 03/30/17 08:40 83 97 03/30/17 07:32 98.7 F 83 14 150/57 97 03/30/17 04:29 98.8 F 85 18 129/37 97 03/30/17 04:00 19 99 03/30/17 01:43 17 129/73 100 03/30/17 00:15 97.7 F 89 18 129/73 99 03/29/17 23:29 19 128/60 99 03/29/17 22:41 22 128/60 100 03/29/17 20:21 22 128/60 98 03/29/17 19:33 98.9 F 89 17 128/60 100 03/29/17 17:20 20 122/51 99 03/29/17 15:38 18 100 03/29/17 15:15 97.8 F 90 18 122/51 100 03/29/17 14:46 97.8 F 90 20 122/51 99 Intake and Output 03/29/17 03/30/17 03/30/17 23:59 07:59 15:59 Intake Total 50 / 50 280 / 280 1403 / 1403 Output Total 120 / 120 200 / 200 Balance 50 / 50 160 / 160 1203 / 1203 Intake: IV Fluids 250 / 250 300 / 300 Zyvox Premix 600mg/300mL 600 mg 150 / 150 300 / 300 In 300 ml @ 150 mls/hr IVPB Q12H [facility] Rx#:[id number] Zosyn 3.375 GM In 0.9 % Sodium 100 / 100 Chloride 100 ML @ 25 mls/hr IVPB Q12H [facility] Rx#:[id number] Oral 0 / 0 Tube Feeding 953 / 953 Free Water 0 / 0 Free Water Intake Amount 50 / 50 30 / 30 150 / 150 Output: Rectal Tube 200 / 200 Urostomy 120 / 120 Catheter 0 / 0 Other: Meal npo Percent of Meal Consumed 0% Stool Consistency liquid Stool Color Brown Blood Glucose* 233 141 278 - General Appearance General appearance: Present: chronically ill, sedated on ventilator, intubated EENT: Present: ATNC, mucous membranes moist Additional Comments: +trach Neck: Present: no JVD, supple Respiratory: Present: course breath sounds Cardiology: Present: no edema, normal S1, normal S2 Dialysis Vascular Access: Arteriovenous Fistula thrill: Yes bruit: Yes Gastrointestinal: Present: no tenderness, no guarding Integumentary: Present: warm and dry Additional Comments: resting but arousable Musculoskeletal: Present: no deformities Psychiatric: Present: depressed - Lab 04/02/17 03:33 04/02/17 03:33 Most recent lab results ABG pH 7.47 pH Units (7.32-7.45) H 03/25/17 09:01 ABG pCO2 30 mmHg (35-45) L 03/25/17 09:01 ABG pO2 71 mmHg (85-104) L 03/25/17 09:01 ABG HCO3 21 mEq/L (21-27) 03/25/17 09:01 ABG O2 Saturation 95 % (95-98) 03/25/17 09:01 Calcium 10.1 mg/dL (8.6-10.3) 03/30/17 03:53 Phosphorus 5.1 mg/dL (2.7-4.5) H 03/22/17 03:35 Magnesium 2.3 mg/dL (1.6-2.6) 03/25/17 04:34 - VTE Documentation of Mechanical Device: Intermittent pneumatic compression device Consult Discharge Plan - Plan Additional Instructions: Please complete course of Linezolid and Fluconzaole for a total of 9 more days. Please follow-up with a primary care physician in 2-3 days. Referrals: Surendra Taveras MD [Partnered Physician] - 04/24/17 2:15 pm Surinder Fung DO [Non-Partnered Physician] - (Patient is going to [facility] no PCP appointment is needed) Prescriptions: Fluconazole [Diflucan] 200 mg PO DAILY #9 tab Leptospermum Honey [Medihoney] 1 appl TP BID #1 tube Linezolid [Zyvox] 600 mg PO BID #18 tablet Miconazole w/zinc oxide&karaya [Antifungal Extra Thick] 1 appl TP BID #1 tube
--- NOTE | 2017-03-30 18:22 | Internal Med Progress Note ---
Date of Encounter: 03/30/17 Time of Encounter: 18:19 - Assessment and plan (1) Acute and chronic respiratory failure Current Visit: Yes Status: Chronic Assessment and plan: Continue Linezolid and Zosyn Patient is chronically vent dependant stable Qualifiers: Respiratory failure complication: hypoxia Qualified Code(s): J96.21 - Acute and chronic respiratory failure with hypoxia (2) Anemia Current Visit: Yes Status: Acute Qualifiers: Anemia type: due to chronic kidney disease Chronic kidney disease stage: on chronic dialysis Qualified Code(s): N18.6 - End stage renal disease; D63.1 - Anemia in chronic kidney disease; D63.1 - Anemia in chronic kidney disease; Z99.2 - Dependence on renal dialysis; Z99.2 - Dependence on renal dialysis; Z99.2 - Dependence on renal dialysis; Z99.2 - Dependence on renal dialysis (3) Atrial fibrillation with RVR Current Visit: Yes Status: Acute Assessment and plan: Amiodarone Coreg (4) ESRD (end stage renal disease) Current Visit: Yes Status: Acute (5) History of seizure disorder Current Visit: Yes Status: Acute (6) Hypertension Current Visit: Yes Status: Acute Qualifiers: Hypertension type: unspecified Qualified Code(s): I10 - Essential (primary ) hypertension (7) Insulin dependent diabetes mellitus Current Visit: No Status: Chronic (8) Pneumonia Current Visit: Yes Status: Acute Qualifiers: Pneumonia type: due to Pseudomonas Laterality: bilateral Lung location: unspecified part of lung Qualified Code(s): J15.1 - Pneumonia due to Pseudomonas (9) VRE (vancomycin resistant enterococcus) culture positive Current Visit: Yes Status: Acute (10) DVT prophylaxis Current Visit: Yes Status: Acute - Subjective Interval history: Patient has no complaints, nursing reports he has loose stools in rectal tube. - Constitutional Vitals: Temp Pulse Resp BP Pulse Ox 97.6 F 87 14 163/65 90 03/30/17 15:30 03/30/17 15:30 03/30/17 15:50 03/30/17 15:50 03/30/17 15:50 Exam: Gen: NAD, chronic tracheostomy with vent running CVS: RRR Lungs: CTAB Ext: no edema Internal Medicine: Result - Labs CBC & Chem 7: 03/30/17 03:53 03/30/17 03:53 Labs: Short CBC 03/30/17 Range/Units 03:53 WBC 17.9 H (4.3-11.1) K/mcL Hgb 8.2 L (12.9-16.9) g/dL Hct 24.9 L (37.5-50.1) % Plt Count 443 H (140-400) K/mcL Neutrophils # 13.3 H (1.6-8.9) K/mcL BMP 03/30/17 03:53 Sodium 139 Potassium 4.0 Chloride 94 L Carbon Dioxide 24 BUN 114 H Creatinine 6.90 H Glucose 133 H Calcium 10.1 Liver Function 03/30/17 Range/Units 03:53 Total Bilirubin 0.4 (0.3-1.0) mg/dL AST 14 (13-39) Units/L ALT 20 (7-52) Units/L Alkaline Phosphatase 294 H (34-104) Units/L Albumin 3.4 L (3.5-5.7) g/dL - ABG Interpretation ABG results: ABG ABG pH 7.47 pH Units (7.32-7.45) H 03/25/17 09:01 ABG pCO2 30 mmHg (35-45) L 03/25/17 09:01 ABG pO2 71 mmHg (85-104) L 03/25/17 09:01 ABG O2 Saturation 95 % (95-98) 03/25/17 09:01 PT/INR, D-dimer PT 12.5 Seconds (9.4-12.1) H 03/13/17 13:43 - VTE Documentation of Mechanical Device: Intermittent pneumatic compression device Consult Discharge Plan - Plan Referrals: Surendra Taveras MD [Partnered Physician] - 04/24/17 2:15 pm Surinder Fung DO [Non-Partnered Physician] - 04/10/17 1:20 pm (Please fax d/c info and H&P to [phone])
[2017-03-30] MEDS: Fluconazole 200 MG/100 ML 200 MG/100 ML BAG IVPB SCH (21:03)
[2017-03-30] MEDS: TOBRAMYCIN SULF IVPB SCH (21:45)
[2017-03-30] MEDS: D5 IVPB SCH (21:45)
[2017-03-30] MEDS: WATER IVPB SCH (21:45)
[2017-03-31] MEDS: Ipratropium/Albuterol Neb 3 ML IH SCH ×4 (04:15→22:45)
[2017-03-31] MEDS: Insulin LISPRO 300 UNITS/3 ML VIAL SQ SCH ×6 (05:01→21:31)
[2017-03-31 06:48] LABS: Potassium 3.8 mEq/L (3.5-5.1)
[2017-03-31 06:49] LABS: Calcium 9.3 mg/dL (8.6-10.3)
[2017-03-31 06:58] LABS: Hematocrit 25.2 % (37.5-50.1); Hemoglobin 8.1 g/dL (12.9-16.9); Mean Corpuscular HGB Conc 32.1 g/dL (31.6-35.5); Mean Corpuscular Volume 93.3 fL (83.0-100.0); Mean Platelet Volume 11.6 fL (9.4-12.4); Platelet Count 461 K/mcL (140-400); Red Cell Distribution Width 16.6 % (11.5-14.5)
[2017-03-31] MEDS: *HR* Amiodarone 200 MG TABLET GTUBE SCH (07:47)
[2017-03-31] MEDS: Valproic Acid Oral Soln 250 MG/5 ML UDC GTUBE SCH ×2 (07:47→21:30)
[2017-03-31] MEDS: Pantoprazole 40 MG VIAL IVP SCH (07:48)
[2017-03-31] MEDS: *HR* Heparin 5,000 UNIT/ML VIAL SQ SCH ×3 (07:48→21:31)
[2017-03-31] MEDS: Chlorhexidine Rinse 15 ML MOUTHWASH MM SCH ×2 (07:48→21:31)
[2017-03-31] MEDS: Leptospermum Honey Gel 44 ML TUBE TP SCH ×2 (07:51→21:44)
[2017-03-31] MEDS: Miconazole w/zinc oxide&karaya 92 APPL/92 GM TUBE TP SCH ×2 (07:51→21:44)
[2017-03-31] MEDS: Insulin DETEMIR 100 UNIT/ML X5UNITS SQ SCH (08:26)
[2017-03-31 08:35] LABS: Eosinophils # 1.1 K/mcL (0.0-0.6); Lymphocytes # 1.4 K/mcL (0.6-4.6); Monocytes # 0.7 K/mcL (0.0-1.3); Neutrophils # 14.4 K/mcL (1.6-8.9)
--- NOTE | 2017-03-31 12:08 | Internal Med Progress Note ---
Date of Encounter: 03/31/17 Time of Encounter: 12:02 - Assessment and plan (1) Leukocytosis Current Visit: No Status: Acute Assessment and plan: Unsure f infectious related but perisists today. Patient afebrile and hemodynamically stable but i was notified by nursing that he does have loose stools in rectal tube. Will test stool for c diff. If negative and patient stable WBC in AM, likely patient will go to [facility] tomorrow. Qualifiers: Leukocytosis type: other Qualified Code(s): D72.828 - Other elevated white blood cell count (2) Acute and chronic respiratory failure Current Visit: Yes Status: Chronic Assessment and plan: Continue Linezolid and Zosyn Patient is chronically vent dependant stable Qualifiers: Respiratory failure complication: hypoxia Qualified Code(s): J96.21 - Acute and chronic respiratory failure with hypoxia (3) Atrial fibrillation with RVR Current Visit: Yes Status: Acute Assessment and plan: Amiodarone Coreg (4) Anemia Current Visit: Yes Status: Acute Qualifiers: Anemia type: due to chronic kidney disease Chronic kidney disease stage: on chronic dialysis Qualified Code(s): N18.6 - End stage renal disease; D63.1 - Anemia in chronic kidney disease; D63.1 - Anemia in chronic kidney disease; Z99.2 - Dependence on renal dialysis; Z99.2 - Dependence on renal dialysis; Z99.2 - Dependence on renal dialysis; Z99.2 - Dependence on renal dialysis (5) ESRD (end stage renal disease) Current Visit: Yes Status: Acute (6) History of seizure disorder Current Visit: Yes Status: Acute (7) Hypertension Current Visit: Yes Status: Acute Qualifiers: Hypertension type: unspecified Qualified Code(s): I10 - Essential (primary ) hypertension (8) Insulin dependent diabetes mellitus Current Visit: No Status: Chronic (9) Pneumonia Current Visit: Yes Status: Acute Qualifiers: Pneumonia type: due to Pseudomonas Laterality: bilateral Lung location: unspecified part of lung Qualified Code(s): J15.1 - Pneumonia due to Pseudomonas (10) VRE (vancomycin resistant enterococcus) culture positive Current Visit: Yes Status: Acute (11) DVT prophylaxis Current Visit: Yes Status: Acute - Subjective Interval history: Patient has no complaints, nursing reports he has loose stools in rectal tube. - Constitutional Vitals: Temp Pulse Resp BP Pulse Ox 97.6 F 86 14 150/80 100 03/31/17 11:04 03/31/17 11:04 03/31/17 11:04 03/31/17 11:04 03/31/17 11:04 Internal Medicine: Result - Labs CBC & Chem 7: 03/31/17 06:07 03/31/17 06:07 Labs: Short CBC 03/31/17 Range/Units 06:07 WBC 17.6 H (4.3-11.1) K/mcL Hgb 8.1 L (12.9-16.9) g/dL Hct 25.2 L (37.5-50.1) % Plt Count 461 H (140-400) K/mcL Neutrophils # 14.4 H (1.6-8.9) K/mcL BMP 03/31/17 06:07 Sodium 134 L Potassium 3.8 Chloride 95 L Carbon Dioxide 24 BUN 84 H Creatinine 5.44 H Glucose 166 H Calcium 9.3 - ABG Interpretation ABG results: ABG ABG pH 7.47 pH Units (7.32-7.45) H 03/25/17 09:01 ABG pCO2 30 mmHg (35-45) L 03/25/17 09:01 ABG pO2 71 mmHg (85-104) L 03/25/17 09:01 ABG O2 Saturation 95 % (95-98) 03/25/17 09:01 PT/INR, D-dimer PT 12.5 Seconds (9.4-12.1) H 03/13/17 13:43 - VTE Documentation of Mechanical Device: Intermittent pneumatic compression device Consult Discharge Plan - Plan Referrals: Surendra Taveras MD [Partnered Physician] - 04/24/17 2:15 pm Surinder Fung DO [Non-Partnered Physician] - 04/10/17 1:20 pm (Please fax d/c info and H&P to [phone])
--- NOTE | 2017-03-31 14:00 | Nephrology Progress Note ---
Date of Encounter: 03/31/17 Time of Encounter: 12:00 - Assessment and Plan (1) ESRD (end stage renal disease) Status: Acute s/p HD yesterday, next planned for saturday Lytes remain stable Continue nepro feed (2) Anemia Status: Acute Hgb noted at 8.1, stable Qualifiers: Anemia type: due to chronic kidney disease Chronic kidney disease stage: on chronic dialysis Qualified Code(s): N18.6 - End stage renal disease; D63.1 - Anemia in chronic kidney disease; D63.1 - Anemia in chronic kidney disease; Z99.2 - Dependence on renal dialysis; Z99.2 - Dependence on renal dialysis; Z99.2 - Dependence on renal dialysis; Z99.2 - Dependence on renal dialysis (3) Acute and chronic respiratory failure Status: Acute per pulm Qualifiers: Respiratory failure complication: hypoxia Qualified Code(s): J96.21 - Acute and chronic respiratory failure with hypoxia Subjective Principal diagnosis: PEA Arrest Interval history: Pt seen and examined s/p HD yesterday with no complications. No family at bedside. Objective - Vital Signs Vital signs: Vital Signs Temp Pulse Resp BP Pulse Ox 03/31/17 11:04 97.6 F 86 14 150/80 100 03/31/17 08:00 99 F 86 23 105/66 100 03/31/17 07:13 99 F 86 23 105/66 100 03/31/17 04:02 98.6 F 86 16 120/76 03/31/17 04:00 85 03/31/17 00:30 86 03/31/17 00:11 98.6 F 86 16 116/57 100 03/30/17 22:11 17 133/77 100 03/30/17 21:30 98.4 F 84 20 133/77 100 03/30/17 20:20 97.8 F 18 141/70 03/30/17 20:05 128/70 03/30/17 19:50 121/60 03/30/17 19:35 128/66 03/30/17 19:20 129/63 03/30/17 19:05 123/67 03/30/17 18:50 108/55 03/30/17 18:35 117/54 03/30/17 18:20 113/50 03/30/17 18:05 105/54 03/30/17 17:50 104/56 03/30/17 17:35 110/52 03/30/17 17:20 109/52 03/30/17 17:05 108/54 03/30/17 16:50 109/65 03/30/17 16:35 109/65 03/30/17 16:20 118/69 03/30/17 16:05 98.1 F 22 131/56 03/30/17 15:50 14 163/65 90 03/30/17 15:36 24 100 03/30/17 15:30 97.6 F 84 20 128/57 99 Intake and Output 03/30/17 03/31/17 03/31/17 23:59 07:59 15:59 Intake Total 1200 / 1200 781 / 781 520 / 520 Output Total 2710 / 2710 0 / 0 Balance -1510 / -1510 781 / 781 520 / 520 Intake: IV Fluids 100 / 100 400 / 400 Diflucan Premix 200 MG/100 ML 100 / 100 200 mg In 100 ml @ 100 mls/hr IVPB Q24H [facility] Rx#:[id number] Zyvox Premix 600mg/300mL 600 mg 300 / 300 In 300 ml @ 150 mls/hr IVPB Q12H [facility] Rx#:[id number] Zosyn 3.375 GM In 0.9 % Sodium 100 / 100 Chloride 100 ML @ 25 mls/hr IVPB Q12H [facility] Rx#:[id number] Oral 0 / 0 0 / 0 Tube Feeding 440 / 440 381 / 381 220 / 220 Free Water 60 / 60 150 / 150 Intake, Rinseback and Flushes 600 / 600 Free Water Intake Amount 150 / 150 Output: Urine 0 / 0 Stool 100 / 100 Total Dialysis (HD) Output 2600 / 2600 Rectal Tube 0 / 0 Urostomy 10 / 10 Catheter 0 / 0 Other: Meal Dinner Percent of Meal Consumed 0% Stool Consistency liquid Stool Color Brown Blood Glucose* 63 143 83 Hemodialysis Net Fluid Removed 2000 (mL) - General Appearance General appearance: Present: chronically ill, sedated on ventilator EENT: Present: ATNC, mucous membranes moist Neck: Present: no JVD, supple (+trach) Respiratory: Present: course breath sounds Cardiology: Present: no edema, normal S1, normal S2 Dialysis Vascular Access: Arteriovenous Fistula thrill: Yes bruit: Yes Gastrointestinal: Present: no tenderness, no guarding Integumentary: Present: warm and dry Neurologic: Present: no focal deficit Musculoskeletal: Present: no deformities Psychiatric: Present: depressed - Lab 04/02/17 03:33 04/02/17 03:33 Most recent lab results ABG pH 7.47 pH Units (7.32-7.45) H 03/25/17 09:01 ABG pCO2 30 mmHg (35-45) L 03/25/17 09:01 ABG pO2 71 mmHg (85-104) L 03/25/17 09:01 ABG HCO3 21 mEq/L (21-27) 03/25/17 09:01 ABG O2 Saturation 95 % (95-98) 03/25/17 09:01 Calcium 9.3 mg/dL (8.6-10.3) 03/31/17 06:07 Phosphorus 5.1 mg/dL (2.7-4.5) H 03/22/17 03:35 Magnesium 2.3 mg/dL (1.6-2.6) 03/25/17 04:34 - VTE Documentation of Mechanical Device: Intermittent pneumatic compression device Consult Discharge Plan - Plan Additional Instructions: Please complete course of Linezolid and Fluconzaole for a total of 9 more days. Please follow-up with a primary care physician in 2-3 days. Referrals: Surendra Taveras MD [Partnered Physician] - 04/24/17 2:15 pm Surinder Fung, [Non-Partnered Physician] - (Patient is going to [facility] no PCP appointment is needed) Prescriptions: Fluconazole [Diflucan] 200 mg PO DAILY #9 tab Leptospermum Honey [Medihoney] 1 appl TP BID #1 tube Linezolid [Zyvox] 600 mg PO BID #18 tablet Miconazole w/zinc oxide&karaya [Antifungal Extra Thick] 1 appl TP BID #1 tube
[2017-03-31] MEDS: Fluconazole 200 MG/100 ML 200 MG/100 ML BAG IVPB SCH (16:42)
[2017-04-01] MEDS: Insulin LISPRO 300 UNITS/3 ML VIAL SQ SCH ×6 (00:52→21:25)
[2017-04-01] MEDS: Ipratropium/Albuterol Neb 3 ML IH SCH ×4 (03:50→21:21)
[2017-04-01 04:46] LABS: Hematocrit 22.6 % (37.5-50.1); Hemoglobin 7.5 g/dL (12.9-16.9); Mean Corpuscular HGB Conc 33.2 g/dL (31.6-35.5); Mean Corpuscular Hemoglobin 30.7 pg (28.0-33.3); Mean Corpuscular Volume 92.6 fL (83.0-100.0); Mean Platelet Volume 11.4 fL (9.4-12.4); Platelet Count 429 K/mcL (140-400); Red Blood Count 2.44 M/mcL (4.19-5.50); Red Cell Distribution Width 16.1 % (11.5-14.5)
[2017-04-01 05:02] LABS: Calcium 9.1 mg/dL (8.6-10.3); Potassium 3.7 mEq/L (3.5-5.1)
[2017-04-01] MEDS: *HR* Heparin 5,000 UNIT/ML VIAL SQ SCH ×3 (05:40→21:23)
[2017-04-01 05:59] LABS: Eosinophils # 0.4 K/mcL (0.0-0.6); Lymphocytes # 1.4 K/mcL (0.6-4.6); Monocytes # 0.7 K/mcL (0.0-1.3); Neutrophils # 15.2 K/mcL (1.6-8.9)
[2017-04-01 06:00] LABS: Hypersegmented Neutrophils Present (Not Present)
[2017-04-01] MEDS: Leptospermum Honey Gel 44 ML TUBE TP SCH ×2 (07:31→21:24)
[2017-04-01] MEDS: Miconazole w/zinc oxide&karaya 92 APPL/92 GM TUBE TP SCH ×2 (07:32→21:24)
[2017-04-01] MEDS: *HR* Amiodarone 200 MG TABLET GTUBE SCH (07:35)
[2017-04-01] MEDS: Pantoprazole 40 MG VIAL IVP SCH (07:35)
[2017-04-01] MEDS: Chlorhexidine Rinse 15 ML MOUTHWASH MM SCH ×2 (07:35→21:23)
[2017-04-01] MEDS: Valproic Acid Oral Soln 250 MG/5 ML UDC GTUBE SCH ×2 (07:46→21:23)
[2017-04-01] MEDS: Insulin DETEMIR 100 UNIT/ML X5UNITS SQ SCH (07:47)
--- NOTE | 2017-04-01 13:02 | Internal Med Progress Note ---
Date of Encounter: 04/01/17 Time of Encounter: 12:53 - Assessment and plan (1) Leukocytosis Current Visit: No Status: Acute Assessment and plan: Unsure f infectious related but perisists today. Patient afebrile and hemodynamically stable but i was notified by nursing that he does have loose stools in rectal tube. This might be related to PEG feeds. Qualifiers: Leukocytosis type: other Qualified Code(s): D72.828 - Other elevated white blood cell count (2) Acute and chronic respiratory failure Current Visit: Yes Status: Chronic Assessment and plan: Continue Linezolid and Zosyn Patient is chronically vent dependant stable Qualifiers: Respiratory failure complication: hypoxia Qualified Code(s): J96.21 - Acute and chronic respiratory failure with hypoxia (3) Atrial fibrillation with RVR Current Visit: Yes Status: Acute Assessment and plan: Amiodarone Coreg (4) Anemia Current Visit: Yes Status: Acute Qualifiers: Anemia type: due to chronic kidney disease Chronic kidney disease stage: on chronic dialysis Qualified Code(s): N18.6 - End stage renal disease; D63.1 - Anemia in chronic kidney disease; D63.1 - Anemia in chronic kidney disease; Z99.2 - Dependence on renal dialysis; Z99.2 - Dependence on renal dialysis; Z99.2 - Dependence on renal dialysis; Z99.2 - Dependence on renal dialysis (5) ESRD (end stage renal disease) Current Visit: Yes Status: Acute (6) History of seizure disorder Current Visit: Yes Status: Acute (7) Hypertension Current Visit: Yes Status: Acute Qualifiers: Hypertension type: unspecified Qualified Code(s): I10 - Essential (primary ) hypertension (8) Insulin dependent diabetes mellitus Current Visit: No Status: Chronic (9) Pneumonia Current Visit: Yes Status: Acute Qualifiers: Pneumonia type: due to Pseudomonas Laterality: bilateral Lung location: unspecified part of lung Qualified Code(s): J15.1 - Pneumonia due to Pseudomonas (10) VRE (vancomycin resistant enterococcus) culture positive Current Visit: Yes Status: Acute (11) DVT prophylaxis Current Visit: Yes Status: Acute - Subjective Interval history: Patient has no complaints, Stool still loose despite removal of miralax. Rectal tube removed yesterday Has excoriations - Constitutional Vitals: Temp Pulse Resp BP Pulse Ox 97.9 F 75 21 94/38 100 02/19/18 11:17 04/01/17 11:17 04/01/17 11:17 04/01/17 11:17 04/01/17 11:17 Exam: Gen: NAD, chronic tracheostomy with vent running CVS: RRR Lungs: CTAB Ext: no edema Internal Medicine: Result - Labs CBC & Chem 7: 04/01/17 04:09 04/01/17 04:09 Labs: Short CBC 04/01/17 Range/Units 04:09 WBC 17.7 H (4.3-11.1) K/mcL Hgb 7.5 L (12.9-16.9) g/dL Hct 22.6 L (37.5-50.1) % Plt Count 429 H (140-400) K/mcL Neutrophils # 15.2 H (1.6-8.9) K/mcL BMP 04/01/17 04:09 Sodium 134 L Potassium 3.7 Chloride 93 L Carbon Dioxide 24 BUN 100 H Creatinine 6.16 H Glucose 98 Calcium 9.1 - ABG Interpretation ABG results: ABG ABG pH 7.47 pH Units (7.32-7.45) H 03/25/17 09:01 ABG pCO2 30 mmHg (35-45) L 03/25/17 09:01 ABG pO2 71 mmHg (85-104) L 03/25/17 09:01 ABG O2 Saturation 95 % (95-98) 03/25/17 09:01 PT/INR, D-dimer PT 12.5 Seconds (9.4-12.1) H 03/13/17 13:43 - VTE Documentation of Mechanical Device: Intermittent pneumatic compression device Consult Discharge Plan - Plan Referrals: Surendra Taveras MD [Partnered Physician] - 04/24/17 2:15 pm Surinder Fung DO [Non-Partnered Physician] - 04/10/17 1:20 pm (Please fax d/c info and H&P to [phone])
--- NOTE | 2017-04-01 13:16 | Infectious Disease Progress No ---
Date of Encounter: 04/01/17 Time of Encounter: 10:10 - Assessment and Plan (1) Severe sepsis Current Visit: Yes Status: Acute Patient positive with 2 SIRS criteria: Leukocytosis and tachypnea Improving overall, no elevations in temperature seen but continued tachycardia and stable WBC Likely source from pneumonia and UTI Strep pneumonia antigen positive, imaging consistent with pneumonia VRE isolated in patient urine Patient was evaluated for C. difficile which was negative Stop tobramycine and zosyn Continue Zyvox and Fluconazole Day 4 Dose adjust antibiotics based on ESRD and HD schedule. Discussed with pharmacy staff (2) Acute and chronic respiratory failure Current Visit: Yes Status: Chronic Patient has tracheostomy is on chronic mechanical ventilation Presenting with PEA arrest suspect is secondary to hypoxia given pleural effusion/pneumonia CT of abdomen shows right lower lobe consolidation consistent with pneumonia and urine antigen positive for strep pneumonia, likely cause of patient acute respiratory failure Plan per primary team ID plan as above Qualifiers: Respiratory failure complication: hypoxia Qualified Code(s): J96.21 - Acute and chronic respiratory failure with hypoxia (3) Tracheobronchitis Current Visit: Yes Status: Acute Patient found to have MDRO P. aeruginosa in his sputum culture. This is likely due to colonization from his trach Plan as above (4) Pulmonary edema Current Visit: No Status: Acute Plan as above Qualifiers: Chronicity: acute Qualified Code(s): J81.0 - Acute pulmonary edema (5) Cardiac arrest Current Visit: Yes Status: Resolved Likely secondary to hypoxia Plan as above (6) ESRD (end stage renal disease) on dialysis Current Visit: No Status: Chronic We will monitor renal function daily Renally dose medications Continue plan per nephrology - Subjective Interval history: Patient was uncooperative this morning and did not want to answer any questions about how he was doing. He did continue to have an elevated WBC, but it has remained stable over the last few days. He has been afebrile and not tachycardic, but has continued to have some tachypnea. C. Diff pcr was negative. Infect Dis PN-Objective Data - Labs CBC & Chem 7: 04/01/17 04:09 04/01/17 04:09 Labs: Laboratory Results - last 24 hr 03/30/17 03/30/17 03/31/17 16:47 21:41 01:18 WBC RBC Hgb Hct MCV MCH MCHC RDW Plt Count MPV Seg Neutrophils % Band Neutrophils % Lymphocytes % Monocytes % Eosinophils % Neutrophils # Lymphocytes # Monocytes # Eosinophils # Hypersegmented Neuts Platelet Estimate Sodium Potassium Chloride Carbon Dioxide BUN Creatinine Est GFR ( Amer) Est GFR (Non-Af Amer) BUN/Creatinine Ratio Glucose POC Glucose 89 63 113 H Calculated Osmolality Calcium Stl C. diff Tox B Gene 03/31/17 03/31/17 03/31/17 05:08 07:07 10:43 WBC RBC Hgb Hct MCV MCH MCHC RDW Plt Count MPV Seg Neutrophils % Band Neutrophils % Lymphocytes % Monocytes % Eosinophils % Neutrophils # Lymphocytes # Monocytes # Eosinophils # Hypersegmented Neuts Platelet Estimate Sodium Potassium Chloride Carbon Dioxide BUN Creatinine Est GFR ( Amer) Est GFR (Non-Af Amer) BUN/Creatinine Ratio Glucose POC Glucose 161 H 143 H 83 Calculated Osmolality Calcium Stl C. diff Tox B Gene 03/31/17 03/31/17 04/01/17 12:00 16:22 00:35 WBC RBC Hgb Hct MCV MCH MCHC RDW Plt Count MPV Seg Neutrophils % Band Neutrophils % Lymphocytes % Monocytes % Eosinophils % Neutrophils # Lymphocytes # Monocytes # Eosinophils # Hypersegmented Neuts Platelet Estimate Sodium Potassium Chloride Carbon Dioxide BUN Creatinine Est GFR ( Amer) Est GFR (Non-Af Amer) BUN/Creatinine Ratio Glucose POC Glucose 140 H 189 H Calculated Osmolality Calcium Stl C. diff Tox B Gene Negative 04/01/17 04/01/17 04:09 04:09 WBC 17.7 H RBC 2.44 L Hgb 7.5 L Hct 22.6 L MCV 92.6 MCH 30.7 MCHC 33.2 RDW 16.1 H Plt Count 429 H MPV 11.4 Seg Neutrophils % 78.0 Band Neutrophils % 8.0 H Lymphocytes % 8.0 Monocytes % 4.0 Eosinophils % 2.0 Neutrophils # 15.2 H Lymphocytes # 1.4 Monocytes # 0.7 Eosinophils # 0.4 Hypersegmented Neuts Present A Platelet Estimate Slight increase H Sodium 134 L Potassium 3.7 Chloride 93 L Carbon Dioxide 24 BUN 100 H Creatinine 6.16 H Est GFR ( Amer) 11 L Est GFR (Non-Af Amer) 9 L BUN/Creatinine Ratio 16 Glucose 98 POC Glucose Calculated Osmolality 309 H Calcium 9.1 Stl C. diff Tox B Gene Cultures: Cultures 03/27/17 14:34 Blood Culture - Preliminary Peripheral Venipuncture No growth. 03/27/17 14:34 Blood Culture - Preliminary Peripheral Venipuncture No growth. 03/25/17 18:45 Urine Culture - Final Urine,[place] albicans Vancomycin Resistant Enterococcus faecium Legionella Antigen - Final Streptococcus pneumoniae Antigen (M - Final 03/21/17 10:37 Blood Culture - Final Peripheral Venipuncture No growth. 03/21/17 10:37 Blood Culture - Final Peripheral Venipuncture No growth. 03/25/17 18:20 Influenza Types A,B Antigen (MIKAELA) - Final Nasopharyngeal 03/18/17 13:20 Blood Culture - Final Peripheral Venipuncture No growth. 03/18/17 13:20 Blood Culture - Final Peripheral Venipuncture No growth. 03/21/17 11:30 Sputum Culture - Final Sputum P. aeruginosa MDRO 03/15/17 10:02 Sputum Culture - Final Sputum P. aeruginosa MDRO Serology 03/31/17 03/25/17 03/24/17 Range/Units 12:00 18:45 08:37 Ur Specimen Adequacy See below A Urine Color Dark Yellow Red A (Yellow) Urine Clarity Turbid A Turbid A (Clear) Urine pH >=9.0 H 8.0 (5.0-8.0) pH Units Ur Specific Mchenry 1.015 1.012 (1.010-1.025) Urine Protein >=300 H >=300 H (Neg-Trace) mg/dL Urine Glucose (UA) Normal Normal (Normal) mg/dL Urine Ketones Negative Negative (Negative) mg/dL Urine Blood Moderate H Moderate H (Negative) Urine Nitrite Negative Negative (Negative) Urine Bilirubin Small H Negative (Negative) Urine Urobilinogen Normal Normal (Normal) mg/dL Ur Leukocyte Esterase Large H Large H (Negative) Urine Microscopic RBC Present 50-100 H (0-3) per hpf Urine Microscopic WBC TNTC H TNTC H (0-3) per hpf Ur Squamous Epith Cells Present Many H (None-Few) per lpf Ur Renal Epithelial Cell Present (None-Few) per hpf Urine Bacteria Many H None Seen (None-Few) per hpf Hyaline Casts Few Test Not Performed Urine Mucus Many H (Few) Urine Yeast Many H Test Not Performed Ur Oval Fat Bodies Present A (Not Present) Ur Culture Indicated? NO. (NO) Stl C. cayetanensis PCR (Not detect) Stool Rotavirus A PCR (Not detect) Stl Adenov F 40/41 PCR (Not detect) Stool Astrovirus (PCR) (Not detect) Stool Campylobacter PCR (Not detect) Stl C. diff Tox B Gene Negative (Negative) Stl C. diff Tox A/B PCR (Not detect) Stool Cryptosporidium PCR (Not detect) Stl Sh Tox Pr E STEC PCR (Not detect) Stool E coli O157 PCR (Not detect) Stl Enterotoxigenic E PCR (Not detect) Stool EPEC (PCR) (Not detect) Stool EAEC (PCR) (Not detect) Stl E. histolytica PCR (Not detect) Stool Giardia Lamblia PCR (Not detect) Stool Salmonella PCR (Not detect) Stool Sapovirus (PCR) (Not detect) Stl P. shigelloides PCR (Not detect) Stl Shigella/EIEC PCR (Not detect) St Y.enterocolitica PCR (Not detect) Stool Vibrio (PCR) (Not detect) Stl Vibrio cholerae PCR (Not detect) Stl Norovirus GI/GII PCR (Not detect) Stl GI Panel (PCR) Com Chlamy pneumoniae PCR (Not Detect) Adenovirus (PCR) (Not Detect) B. pertussis DNA (PCR) (Not Detect) B.parapertussis DNA PCR (Not Detect) Coronavirus OC43 (PCR) (Not Detect) Coronavirus HKU1 (PCR) (Not Detect) Coronavirus 229E (PCR) (Not Detect) Coronavirus NL63 (PCR) (Not Detect) Hep Bs Antigen (Nonreactive) Hep Bs Antibody mIU/mL Human Metapneumovir PCR (Not Detect) Influenza A (H1) PCR (Not Detect) Influ A (H1N1/09) PCR (Not Detect) Influenza A (H3) PCR (Not Detect) Influenza A Untype (PCR) (Not Detect) Influenza Type B (PCR) (Not Detect) M.pneumoniae DNA (PCR) (Not Detect) Parainfluenza 1 (PCR) (Not Detect) Parainfluenza 2 (PCR) (Not Detect) Parainfluenza 3 (PCR) (Not Detect) Parainfluenza 4 (PCR) (Not Detect) RSV (PCR) (Not Detect) Entero/Rhino (PCR) (Not Detect) 03/22/17 03/14/17 03/13/17 Range/Units 08:00 02:00 22:40 Ur Specimen Adequacy Urine Color (Yellow) Urine Clarity (Clear) Urine pH (5.0-8.0) pH Units Ur Specific Mchenry (1.010-1.025) Urine Protein (Neg-Trace) mg/dL Urine Glucose (UA) (Normal) mg/dL Urine Ketones (Negative) mg/dL Urine Blood (Negative) Urine Nitrite (Negative) Urine Bilirubin (Negative) Urine Urobilinogen (Normal) mg/dL Ur Leukocyte Esterase (Negative) Urine Microscopic RBC (0-3) per hpf Urine Microscopic WBC (0-3) per hpf Ur Squamous Epith Cells (None-Few) per lpf Ur Renal Epithelial Cell (None-Few) per hpf Urine Bacteria (None-Few) per hpf Hyaline Casts Urine Mucus (Few) Urine Yeast Ur Oval Fat Bodies (Not Present) Ur Culture Indicated? (NO) Stl C. cayetanensis PCR Not detected (Not detect) Stool Rotavirus A PCR Not detected (Not detect) Stl Adenov F 40/41 PCR Not detected (Not detect) Stool Astrovirus (PCR) Not detected (Not detect) Stool Campylobacter PCR Not detected (Not detect) Stl C. diff Tox B Gene (Negative) Stl C. diff Tox A/B PCR Not detected (Not detect) Stool Cryptosporidium PCR Not detected (Not detect) Stl Sh Tox Pr E STEC PCR Not detected (Not detect) Stool E coli O157 PCR Not detected (Not detect) Stl Enterotoxigenic E PCR Not detected (Not detect) Stool EPEC (PCR) Not detected (Not detect) Stool EAEC (PCR) Not detected (Not detect) Stl E. histolytica PCR Not detected (Not detect) Stool Giardia Lamblia PCR Not detected (Not detect) Stool Salmonella PCR Not detected (Not detect) Stool Sapovirus (PCR) Not detected (Not detect) Stl P. shigelloides PCR Not detected (Not detect) Stl Shigella/EIEC PCR Not detected (Not detect) St Y.enterocolitica PCR Not detected (Not detect) Stool Vibrio (PCR) Not detected (Not detect) Stl Vibrio cholerae PCR Not detected (Not detect) Stl Norovirus GI/GII PCR Not detected (Not detect) Stl GI Panel (PCR) Com See below Chlamy pneumoniae PCR Not Detected (Not Detect) Adenovirus (PCR) Not Detected (Not Detect) B. pertussis DNA (PCR) Not Detected (Not Detect) B.parapertussis DNA PCR Not Detected (Not Detect) Coronavirus OC43 (PCR) Not Detected (Not Detect) Coronavirus HKU1 (PCR) Not Detected (Not Detect) Coronavirus 229E (PCR) Not Detected (Not Detect) Coronavirus NL63 (PCR) Not Detected (Not Detect) Hep Bs Antigen Nonreactive (Nonreactive) Hep Bs Antibody 7.75 mIU/mL Human Metapneumovir PCR Not Detected (Not Detect) Influenza A (H1) PCR Not Detected (Not Detect) Influ A (H1N1/09) PCR Not Detected (Not Detect) Influenza A (H3) PCR Not Detected (Not Detect) Influenza A Untype (PCR) Not Detected (Not Detect) Influenza Type B (PCR) Not Detected (Not Detect) M.pneumoniae DNA (PCR) Not Detected (Not Detect) Parainfluenza 1 (PCR) Not Detected (Not Detect) Parainfluenza 2 (PCR) Not Detected (Not Detect) Parainfluenza 3 (PCR) Not Detected (Not Detect) Parainfluenza 4 (PCR) Not Detected (Not Detect) RSV (PCR) Not Detected (Not Detect) Entero/Rhino (PCR) Not Detected (Not Detect) 03/13/17 Range/Units 17:30 Ur Specimen Adequacy Urine Color (Yellow) Urine Clarity (Clear) Urine pH (5.0-8.0) pH Units Ur Specific Mchenry (1.010-1.025) Urine Protein (Neg-Trace) mg/dL Urine Glucose (UA) (Normal) mg/dL Urine Ketones (Negative) mg/dL Urine Blood (Negative) Urine Nitrite (Negative) Urine Bilirubin (Negative) Urine Urobilinogen (Normal) mg/dL Ur Leukocyte Esterase (Negative) Urine Microscopic RBC (0-3) per hpf Urine Microscopic WBC (0-3) per hpf Ur Squamous Epith Cells (None-Few) per lpf Ur Renal Epithelial Cell (None-Few) per hpf Urine Bacteria (None-Few) per hpf Hyaline Casts Urine Mucus (Few) Urine Yeast Ur Oval Fat Bodies (Not Present) Ur Culture Indicated? (NO) Stl C. cayetanensis PCR (Not detect) Stool Rotavirus A PCR (Not detect) Stl Adenov F 40/41 PCR (Not detect) Stool Astrovirus (PCR) (Not detect) Stool Campylobacter PCR (Not detect) Stl C. diff Tox B Gene Negative (Negative) Stl C. diff Tox A/B PCR (Not detect) Stool Cryptosporidium PCR (Not detect) Stl Sh Tox Pr E STEC PCR (Not detect) Stool E coli O157 PCR (Not detect) Stl Enterotoxigenic E PCR (Not detect) Stool EPEC (PCR) (Not detect) Stool EAEC (PCR) (Not detect) Stl E. histolytica PCR (Not detect) Stool Giardia Lamblia PCR (Not detect) Stool Salmonella PCR (Not detect) Stool Sapovirus (PCR) (Not detect) Stl P. shigelloides PCR (Not detect) Stl Shigella/EIEC PCR (Not detect) St Y.enterocolitica PCR (Not detect) Stool Vibrio (PCR) (Not detect) Stl Vibrio cholerae PCR (Not detect) Stl Norovirus GI/GII PCR (Not detect) Stl GI Panel (PCR) Com Chlamy pneumoniae PCR (Not Detect) Adenovirus (PCR) (Not Detect) B. pertussis DNA (PCR) (Not Detect) B.parapertussis DNA PCR (Not Detect) Coronavirus OC43 (PCR) (Not Detect) Coronavirus HKU1 (PCR) (Not Detect) Coronavirus 229E (PCR) (Not Detect) Coronavirus NL63 (PCR) (Not Detect) Hep Bs Antigen (Nonreactive) Hep Bs Antibody mIU/mL Human Metapneumovir PCR (Not Detect) Influenza A (H1) PCR (Not Detect) Influ A (H1N1/09) PCR (Not Detect) Influenza A (H3) PCR (Not Detect) Influenza A Untype (PCR) (Not Detect) Influenza Type B (PCR) (Not Detect) M.pneumoniae DNA (PCR) (Not Detect) Parainfluenza 1 (PCR) (Not Detect) Parainfluenza 2 (PCR) (Not Detect) Parainfluenza 3 (PCR) (Not Detect) Parainfluenza 4 (PCR) (Not Detect) RSV (PCR) (Not Detect) Entero/Rhino (PCR) (Not Detect) Exam - Constitutional Vitals: Temp Pulse Resp BP Pulse Ox 97.9 F 75 21 94/38 100 04/01/17 11:17 04/01/17 11:17 04/01/17 11:17 04/01/17 11:17 04/01/17 11:17 - Additional findings Additional findings: General: Cooperative, pleasant, no acute distress HEENT: Normocephalic, atraumatic, neck supple, trachea midline, Conjunctiva pink , sclera anicteric, oral mucosa moist Respiratory: Slight rhochi on auscultation b/l Cardiovascular: RRR, S1 and S2 present, no murmurs/rubs/gallops/clicks appreciated GI/abdominal: Nondistended, nontender, soft, normal bowel sounds, no peritoneal signs, PEG tube in place without signs of erythema or inflammation, urostomy in place in right anterior abdomen without signs of erythema or inflammation Extremities: No calf tenderness, no pedal edema appreciated, warm, lower extremity pulses palpable and symmetrical Neurological: Alert, no facial droop, no focal deficits Skin: Dry, intact, normal color - VTE Documentation of Mechanical Device: Intermittent pneumatic compression device Consult Discharge Plan - Plan Referrals: Surendra Taveras MD [Partnered Physician] - 04/24/17 2:15 pm Surinder Fung DO [Non-Partnered Physician] - 04/10/17 1:20 pm (Please fax d/c info and H&P to [phone]) - Attending Attestation I examined this patient and my medical decision-making was reviewed with the Resident Physician. I agree with the documented findings, disposition and treatment plan as described except to the extent set forth below. d/c zosyn and tobra (had enough treatment.) Continue Zyvox and Diflucan for now. Duration of treatment probably 10 days to 14 days Monitor for Zyvox side effects including peripheral neuropathy and pancytopenia
[2017-04-01] MEDS: Fluconazole 200 MG/100 ML 200 MG/100 ML BAG IVPB SCH (16:18)
--- NOTE | 2017-04-01 17:35 | Nephrology Progress Note ---
Date of Encounter: 04/01/17 Time of Encounter: 12:15 - Assessment and Plan (1) ESRD (end stage renal disease) Status: Acute Last HD performed on saturday, next HD planned tomorrow Lytes WNL (2) Anemia Status: Acute Hgb noted at 7.5 Transfusion parameter with hgb 7-8 Qualifiers: Anemia type: due to chronic kidney disease Chronic kidney disease stage: on chronic dialysis Qualified Code(s): N18.6 - End stage renal disease; D63.1 - Anemia in chronic kidney disease; D63.1 - Anemia in chronic kidney disease; Z99.2 - Dependence on renal dialysis; Z99.2 - Dependence on renal dialysis; Z99.2 - Dependence on renal dialysis; Z99.2 - Dependence on renal dialysis (3) Acute and chronic respiratory failure Status: Acute per pulm Qualifiers: Respiratory failure complication: hypoxia Qualified Code(s): J96.21 - Acute and chronic respiratory failure with hypoxia Subjective Principal diagnosis: PEA Arrest Interval history: Pt seen and examined resting comfortably on the vent. No family at bedside. Rectal and PEG tubes in place Objective - Vital Signs Vital signs: Vital Signs Temp Pulse Resp BP Pulse Ox 04/01/17 16:29 20 93 04/01/17 16:25 98.9 F 80 22 125/62 91 04/01/17 11:17 97.9 F 75 21 94/38 100 04/01/17 10:30 19 159/81 98 04/01/17 10:05 95/63 04/01/17 10:04 114/61 04/01/17 09:20 98.0 F 20 127/67 04/01/17 07:45 97.5 F L 81 20 159/81 100 04/01/17 07:39 97.5 F L 81 20 159/81 100 04/01/17 04:43 99.1 F 85 14 134/72 96 04/01/17 03:50 21 111/67 97 04/01/17 03:45 86 03/31/17 23:30 84 03/31/17 23:04 99.1 F 86 14 111/67 94 03/31/17 22:45 19 102/68 96 03/31/17 20:30 97 03/31/17 20:28 22 104/68 94 03/31/17 19:38 99.2 F 86 14 102/68 88 Intake and Output 04/01/17 04/01/17 04/01/17 07:59 15:59 23:59 Intake Total 1231 / 1231 700 / 700 Output Total 700 / 700 Balance 531 / 531 700 / 700 Intake: IV Fluids 400 / 400 400 / 400 Zyvox Premix 600mg/300mL 600 mg 300 / 300 300 / 300 In 300 ml @ 150 mls/hr IVPB Q12H [facility] Rx#:[id number] Zosyn 3.375 GM In 0.9 % Sodium 100 / 100 100 / 100 Chloride 100 ML @ 25 mls/hr IVPB Q12H [facility] Rx#:[id number] Oral 0 / 0 Tube Feeding 631 / 631 Free Water 100 / 100 Intake, Rinseback and Flushes 300 / 300 Free Water Intake Amount 100 / 100 Output: Rectal Tube 700 / 700 Urostomy 0 / 0 Other: Blood Glucose* 180 147 186 Hemodialysis Net Fluid Removed 650 (mL) - General Appearance General appearance: Present: chronically ill, sedated on ventilator EENT: Present: ATNC, mucous membranes moist Neck: Present: no JVD, supple (+trach) Respiratory: Present: course breath sounds Cardiology: Present: no edema, normal S1, normal S2 Dialysis Vascular Access: Arteriovenous Fistula thrill: Yes bruit: Yes Gastrointestinal: Present: no tenderness, no guarding Integumentary: Present: warm and dry Neurologic: Present: no focal deficit Musculoskeletal: Present: no deformities Psychiatric: Present: depressed - Lab 04/02/17 03:33 04/02/17 03:33 Most recent lab results ABG pH 7.47 pH Units (7.32-7.45) H 03/25/17 09:01 ABG pCO2 30 mmHg (35-45) L 03/25/17 09:01 ABG pO2 71 mmHg (85-104) L 03/25/17 09:01 ABG HCO3 21 mEq/L (21-27) 03/25/17 09:01 ABG O2 Saturation 95 % (95-98) 03/25/17 09:01 Calcium 9.1 mg/dL (8.6-10.3) 04/01/17 04:09 Phosphorus 5.1 mg/dL (2.7-4.5) H 03/22/17 03:35 Magnesium 2.3 mg/dL (1.6-2.6) 03/25/17 04:34 - VTE Documentation of Mechanical Device: Intermittent pneumatic compression device Consult Discharge Plan - Plan Additional Instructions: Please complete course of Linezolid and Fluconzaole for a total of 9 more days. Please follow-up with a primary care physician in 2-3 days. Referrals: Surendra Taveras MD [Partnered Physician] - 04/24/17 2:15 pm Surinder Fung DO [Non-Partnered Physician] - (Patient is going to [facility] no PCP appointment is needed) Prescriptions: Fluconazole [Diflucan] 200 mg PO DAILY #9 tab Leptospermum Honey [Medihoney] 1 appl TP BID #1 tube Linezolid [Zyvox] 600 mg PO BID #18 tablet Miconazole w/zinc oxide&karaya [Antifungal Extra Thick] 1 appl TP BID #1 tube
[2017-04-01] MEDS ORDERED: Aminoglycoside Consult 1 EACH MC ONE (19:09)
[2017-04-02 03:48] LABS: Basophils # 0.1 K/mcL (0.0-0.2); Basophils % 0.5 %; Eosinophils # 0.5 K/mcL (0.0-0.6); Eosinophils % 3.1 %; Hematocrit 21.4 % (37.5-50.1); Hemoglobin 7.1 g/dL (12.9-16.9); Lymphocytes # 1.4 K/mcL (0.6-4.6); Lymphocytes % 8.7 %; Mean Corpuscular HGB Conc 33.2 g/dL (31.6-35.5); Mean Corpuscular Hemoglobin 30.6 pg (28.0-33.3); Mean Corpuscular Volume 92.2 fL (83.0-100.0); Mean Platelet Volume 10.8 fL (9.4-12.4); Neutrophils # 12.7 K/mcL (1.6-8.9); Nucleated Red Blood Cells 0.2 /100 WBC (0); Platelet Count 422 K/mcL (140-400); Red Blood Count 2.32 M/mcL (4.19-5.50); Red Cell Distribution Width 15.9 % (11.5-14.5); Segmented Neutrophils % 76.7 %
[2017-04-02] MEDS: Ipratropium/Albuterol Neb 3 ML IH SCH ×3 (03:56→14:44)
[2017-04-02 04:12] LABS: Calcium 8.8 mg/dL (8.6-10.3); Potassium 4.1 mEq/L (3.5-5.1)
[2017-04-02] MEDS: *HR* Heparin 5,000 UNIT/ML VIAL SQ SCH ×2 (06:12→13:36)
[2017-04-02] MEDS: Insulin LISPRO 300 UNITS/3 ML VIAL SQ SCH ×4 (06:12→17:15)
[2017-04-02] MEDS ORDERED: 0.9 % Sodium Chloride 250 ML IVC PRN (07:58)
[2017-04-02] MEDS ORDERED: 0.9 % Sodium Chloride 1,000 ML PRIME SCH (08:00)
[2017-04-02] MEDS ORDERED: 0.9 % Sodium Chloride 1,000 ML ONE (08:35)
[2017-04-02] MEDS: Valproic Acid Oral Soln 250 MG/5 ML UDC GTUBE SCH (08:40)
[2017-04-02] MEDS: Insulin DETEMIR 100 UNIT/ML X5UNITS SQ SCH (08:41)
[2017-04-02] MEDS: Chlorhexidine Rinse 15 ML MOUTHWASH MM SCH (08:41)
[2017-04-02] MEDS: Pantoprazole 40 MG VIAL IVP SCH (08:41)
[2017-04-02] MEDS: *HR* Amiodarone 200 MG TABLET GTUBE SCH (08:42)
[2017-04-02] MEDS: Leptospermum Honey Gel 44 ML TUBE TP SCH (08:43)
[2017-04-02] MEDS: Miconazole w/zinc oxide&karaya 92 APPL/92 GM TUBE TP SCH (08:44)
--- NOTE | 2017-04-02 09:48 | Infectious Disease Progress No ---
Date of Encounter: 04/02/17 Time of Encounter: 09:15 - Assessment and Plan (1) Severe sepsis Current Visit: Yes Status: Resolved Patient positive with 1 SIRS criteria: Leukocytosis Improving overall, no elevations in temperature seen, improvment in tachypena, and slight decrease in WBC seen Likely source from pneumonia and UTI Strep pneumonia antigen positive, imaging consistent with pneumonia VRE isolated in patient urine Patient was evaluated for C. difficile which was negative Stop tobramycine and zosyn as he has already received a full course Continue Zyvox and Fluconazole Day 5 Duration of treatment will likely be 10-14 days Dose adjust antibiotics based on ESRD and HD schedule. Discussed with pharmacy staff (2) Acute and chronic respiratory failure Current Visit: Yes Status: Chronic Patient has tracheostomy is on chronic mechanical ventilation Presenting with PEA arrest suspect is secondary to hypoxia given pleural effusion/pneumonia CT of abdomen shows right lower lobe consolidation consistent with pneumonia and urine antigen positive for strep pneumonia, likely cause of patient acute respiratory failure Plan per primary team ID plan as above Qualifiers: Respiratory failure complication: hypoxia Qualified Code(s): J96.21 - Acute and chronic respiratory failure with hypoxia (3) Tracheobronchitis Current Visit: Yes Status: Chronic Patient found to have MDRO P. aeruginosa in his sputum culture. This is likely due to colonization from his trach Plan as above (4) Pulmonary edema Current Visit: No Status: Acute Plan as above Qualifiers: Chronicity: acute Qualified Code(s): J81.0 - Acute pulmonary edema (5) Cardiac arrest Current Visit: Yes Status: Resolved Likely secondary to hypoxia Plan as above (6) ESRD (end stage renal disease) on dialysis Current Visit: No Status: Chronic We will monitor renal function daily Renally dose medications Continue plan per nephrology - Subjective Interval history: Patient seen in hemodialysis today. He reports that he does not feel much better than he did yesterdat, though denies having any pain, he reports that he has the same feelings of malaise. He denies fevers, chills, diaphoresis. He states that he has been continuing to cough. I spoke with his nurse and she states that she has been obtaining copious amount of greenish secretions from his tracheostomy and that he has continued to have liquidy diarrhea, though less frequently than before. Vitals have been stable and mild improvement in his EBC are seen today. Infect Dis PN-Objective Data - Labs CBC & Chem 7: 04/02/17 03:33 04/02/17 03:33 Labs: Laboratory Results - last 24 hr 03/30/17 03/31/17 04/01/17 16:47 19:34 04:42 WBC RBC Hgb Hct MCV MCH MCHC RDW Plt Count MPV Immature Gran % Seg Neutrophils % Lymphocytes % Monocytes % Eosinophils % Basophils % Neutrophils # Lymphocytes # Monocytes # Eosinophils # Basophils # Nucleated RBCs/100 WBC Sodium Potassium Chloride Carbon Dioxide BUN Creatinine Est GFR ( Amer) Est GFR (Non-Af Amer) BUN/Creatinine Ratio Glucose POC Glucose 89 159 H 107 H Calculated Osmolality Calcium Hep Bs Antigen Blood Type Antibody Screen Crossmatch 04/01/17 04/01/17 04/01/17 07:37 11:19 14:54 WBC RBC Hgb Hct MCV MCH MCHC RDW Plt Count MPV Immature Gran % Seg Neutrophils % Lymphocytes % Monocytes % Eosinophils % Basophils % Neutrophils # Lymphocytes # Monocytes # Eosinophils # Basophils # Nucleated RBCs/100 WBC Sodium Potassium Chloride Carbon Dioxide BUN Creatinine Est GFR ( Amer) Est GFR (Non-Af Amer) BUN/Creatinine Ratio Glucose POC Glucose 180 H 147 H Calculated Osmolality Calcium Hep Bs Antigen Nonreactive Blood Type Antibody Screen Crossmatch 04/01/17 04/02/17 04/02/17 16:21 03:33 03:33 WBC 16.5 H RBC 2.32 L Hgb 7.1 L Hct 21.4 L MCV 92.2 MCH 30.6 MCHC 33.2 RDW 15.9 H Plt Count 422 H MPV 10.8 Immature Gran % 5.0 H Seg Neutrophils % 76.7 Lymphocytes % 8.7 Monocytes % 6.0 Eosinophils % 3.1 Basophils % 0.5 Neutrophils # 12.7 H Lymphocytes # 1.4 Monocytes # 1.0 Eosinophils # 0.5 Basophils # 0.1 Nucleated RBCs/100 WBC 0.2 H Sodium 131 L Potassium 4.1 Chloride 90 L Carbon Dioxide 22 L BUN 109 H Creatinine 6.91 H Est GFR ( Amer) 10 L Est GFR (Non-Af Amer) 8 L BUN/Creatinine Ratio 16 Glucose 118 H POC Glucose 186 H Calculated Osmolality 307 H Calcium 8.8 Hep Bs Antigen Blood Type Antibody Screen Crossmatch 04/02/17 08:45 WBC RBC Hgb Hct MCV MCH MCHC RDW Plt Count MPV Immature Gran % Seg Neutrophils % Lymphocytes % Monocytes % Eosinophils % Basophils % Neutrophils # Lymphocytes # Monocytes # Eosinophils # Basophils # Nucleated RBCs/100 WBC Sodium Potassium Chloride Carbon Dioxide BUN Creatinine Est GFR ( Amer) Est GFR (Non-Af Amer) BUN/Creatinine Ratio Glucose POC Glucose Calculated Osmolality Calcium Hep Bs Antigen Blood Type O POSITIVE Antibody Screen NEGATIVE Crossmatch See Detail Cultures: Cultures 03/27/17 14:34 Blood Culture - Final Peripheral Venipuncture No growth. 03/27/17 14:34 Blood Culture - Final Peripheral Venipuncture No growth. 03/25/17 18:45 Urine Culture - Final Urine,[place] albicans Vancomycin Resistant Enterococcus faecium Legionella Antigen - Final Streptococcus pneumoniae Antigen (M - Final 03/21/17 10:37 Blood Culture - Final Peripheral Venipuncture No growth. 03/21/17 10:37 Blood Culture - Final Peripheral Venipuncture No growth. 03/25/17 18:20 Influenza Types A,B Antigen (MIKAELA) - Final Nasopharyngeal 03/18/17 13:20 Blood Culture - Final Peripheral Venipuncture No growth. 03/18/17 13:20 Blood Culture - Final Peripheral Venipuncture No growth. 03/21/17 11:30 Sputum Culture - Final Sputum P. aeruginosa MDRO 03/15/17 10:02 Sputum Culture - Final Sputum P. aeruginosa MDRO Serology 04/01/17 03/31/17 03/25/17 Range/Units 14:54 12:00 18:45 Ur Specimen Adequacy See below A Urine Color Dark Yellow (Yellow) Urine Clarity Turbid A (Clear) Urine pH >=9.0 H (5.0-8.0) pH Units Ur Specific [place] 1.015 (1.010-1.025) Urine Protein >=300 H (Neg-Trace) mg/dL Urine Glucose (UA) Normal (Normal) mg/dL Urine Ketones Negative (Negative) mg/dL Urine Blood Moderate H (Negative) Urine Nitrite Negative (Negative) Urine Bilirubin Small H (Negative) Urine Urobilinogen Normal (Normal) mg/dL Ur Leukocyte Esterase Large H (Negative) Urine Microscopic RBC Present (0-3) per hpf Urine Microscopic WBC TNTC H (0-3) per hpf Ur Squamous Epith Cells Present (None-Few) per lpf Ur Renal Epithelial Cell Present (None-Few) per hpf Urine Bacteria Many H (None-Few) per hpf Hyaline Casts Few Urine Mucus Many H (Few) Urine Yeast Many H Ur Oval Fat Bodies Present A (Not Present) Ur Culture Indicated? (NO) Stl C. cayetanensis PCR (Not detect) Stool Rotavirus A PCR (Not detect) Stl Adenov F 40/41 PCR (Not detect) Stool Astrovirus (PCR) (Not detect) Stool Campylobacter PCR (Not detect) Stl C. diff Tox B Gene Negative (Negative) Stl C. diff Tox A/B PCR (Not detect) Stool Cryptosporidium PCR (Not detect) Stl Sh Tox Pr E STEC PCR (Not detect) Stool E coli O157 PCR (Not detect) Stl Enterotoxigenic E PCR (Not detect) Stool EPEC (PCR) (Not detect) Stool EAEC (PCR) (Not detect) Stl E. histolytica PCR (Not detect) Stool Giardia Lamblia PCR (Not detect) Stool Salmonella PCR (Not detect) Stool Sapovirus (PCR) (Not detect) Stl P. shigelloides PCR (Not detect) Stl Shigella/EIEC PCR (Not detect) St Y.enterocolitica PCR (Not detect) Stool Vibrio (PCR) (Not detect) Stl Vibrio cholerae PCR (Not detect) Stl Norovirus GI/GII PCR (Not detect) Stl GI Panel (PCR) Com Chlamy pneumoniae PCR (Not Detect) Adenovirus (PCR) (Not Detect) B. pertussis DNA (PCR) (Not Detect) B.parapertussis DNA PCR (Not Detect) Coronavirus OC43 (PCR) (Not Detect) Coronavirus HKU1 (PCR) (Not Detect) Coronavirus 229E (PCR) (Not Detect) Coronavirus NL63 (PCR) (Not Detect) Hep Bs Antigen Nonreactive (Nonreactive) Hep Bs Antibody mIU/mL Human Metapneumovir PCR (Not Detect) Influenza A (H1) PCR (Not Detect) Influ A (H1N1/09) PCR (Not Detect) Influenza A (H3) PCR (Not Detect) Influenza A Untype (PCR) (Not Detect) Influenza Type B (PCR) (Not Detect) M.pneumoniae DNA (PCR) (Not Detect) Parainfluenza 1 (PCR) (Not Detect) Parainfluenza 2 (PCR) (Not Detect) Parainfluenza 3 (PCR) (Not Detect) Parainfluenza 4 (PCR) (Not Detect) RSV (PCR) (Not Detect) Entero/Rhino (PCR) (Not Detect) 03/24/17 03/22/17 03/14/17 Range/Units 08:37 08:00 02:00 Ur Specimen Adequacy Urine Color Red A (Yellow) Urine Clarity Turbid A (Clear) Urine pH 8.0 (5.0-8.0) pH Units Ur Specific [place] 1.012 (1.010-1.025) Urine Protein >=300 H (Neg-Trace) mg/dL Urine Glucose (UA) Normal (Normal) mg/dL Urine Ketones Negative (Negative) mg/dL Urine Blood Moderate H (Negative) Urine Nitrite Negative (Negative) Urine Bilirubin Negative (Negative) Urine Urobilinogen Normal (Normal) mg/dL Ur Leukocyte Esterase Large H (Negative) Urine Microscopic RBC 50-100 H (0-3) per hpf Urine Microscopic WBC TNTC H (0-3) per hpf Ur Squamous Epith Cells Many H (None-Few) per lpf Ur Renal Epithelial Cell (None-Few) per hpf Urine Bacteria None Seen (None-Few) per hpf Hyaline Casts Test Not Performed Urine Mucus (Few) Urine Yeast Test Not Performed Ur Oval Fat Bodies (Not Present) Ur Culture Indicated? NO. (NO) Stl C. cayetanensis PCR Not detected (Not detect) Stool Rotavirus A PCR Not detected (Not detect) Stl Adenov F 40/41 PCR Not detected (Not detect) Stool Astrovirus (PCR) Not detected (Not detect) Stool Campylobacter PCR Not detected (Not detect) Stl C. diff Tox B Gene (Negative) Stl C. diff Tox A/B PCR Not detected (Not detect) Stool Cryptosporidium PCR Not detected (Not detect) Stl Sh Tox Pr E STEC PCR Not detected (Not detect) Stool E coli O157 PCR Not detected (Not detect) Stl Enterotoxigenic E PCR Not detected (Not detect) Stool EPEC (PCR) Not detected (Not detect) Stool EAEC (PCR) Not detected (Not detect) Stl E. histolytica PCR Not detected (Not detect) Stool Giardia Lamblia PCR Not detected (Not detect) Stool Salmonella PCR Not detected (Not detect) Stool Sapovirus (PCR) Not detected (Not detect) Stl P. shigelloides PCR Not detected (Not detect) Stl Shigella/EIEC PCR Not detected (Not detect) St Y.enterocolitica PCR Not detected (Not detect) Stool Vibrio (PCR) Not detected (Not detect) Stl Vibrio cholerae PCR Not detected (Not detect) Stl Norovirus GI/GII PCR Not detected (Not detect) Stl GI Panel (PCR) Com See below Chlamy pneumoniae PCR Not Detected (Not Detect) Adenovirus (PCR) Not Detected (Not Detect) B. pertussis DNA (PCR) Not Detected (Not Detect) B.parapertussis DNA PCR Not Detected (Not Detect) Coronavirus OC43 (PCR) Not Detected (Not Detect) Coronavirus HKU1 (PCR) Not Detected (Not Detect) Coronavirus 229E (PCR) Not Detected (Not Detect) Coronavirus NL63 (PCR) Not Detected (Not Detect) Hep Bs Antigen (Nonreactive) Hep Bs Antibody mIU/mL Human Metapneumovir PCR Not Detected (Not Detect) Influenza A (H1) PCR Not Detected (Not Detect) Influ A (H1N1/09) PCR Not Detected (Not Detect) Influenza A (H3) PCR Not Detected (Not Detect) Influenza A Untype (PCR) Not Detected (Not Detect) Influenza Type B (PCR) Not Detected (Not Detect) M.pneumoniae DNA (PCR) Not Detected (Not Detect) Parainfluenza 1 (PCR) Not Detected (Not Detect) Parainfluenza 2 (PCR) Not Detected (Not Detect) Parainfluenza 3 (PCR) Not Detected (Not Detect) Parainfluenza 4 (PCR) Not Detected (Not Detect) RSV (PCR) Not Detected (Not Detect) Entero/Rhino (PCR) Not Detected (Not Detect) 03/13/17 03/13/17 Range/Units 22:40 17:30 Ur Specimen Adequacy Urine Color (Yellow) Urine Clarity (Clear) Urine pH (5.0-8.0) pH Units Ur Specific [place] (1.010-1.025) Urine Protein (Neg-Trace) mg/dL Urine Glucose (UA) (Normal) mg/dL Urine Ketones (Negative) mg/dL Urine Blood (Negative) Urine Nitrite (Negative) Urine Bilirubin (Negative) Urine Urobilinogen (Normal) mg/dL Ur Leukocyte Esterase (Negative) Urine Microscopic RBC (0-3) per hpf Urine Microscopic WBC (0-3) per hpf Ur Squamous Epith Cells (None-Few) per lpf Ur Renal Epithelial Cell (None-Few) per hpf Urine Bacteria (None-Few) per hpf Hyaline Casts Urine Mucus (Few) Urine Yeast Ur Oval Fat Bodies (Not Present) Ur Culture Indicated? (NO) Stl C. cayetanensis PCR (Not detect) Stool Rotavirus A PCR (Not detect) Stl Adenov F 40/41 PCR (Not detect) Stool Astrovirus (PCR) (Not detect) Stool Campylobacter PCR (Not detect) Stl C. diff Tox B Gene Negative (Negative) Stl C. diff Tox A/B PCR (Not detect) Stool Cryptosporidium PCR (Not detect) Stl Sh Tox Pr E STEC PCR (Not detect) Stool E coli O157 PCR (Not detect) Stl Enterotoxigenic E PCR (Not detect) Stool EPEC (PCR) (Not detect) Stool EAEC (PCR) (Not detect) Stl E. histolytica PCR (Not detect) Stool Giardia Lamblia PCR (Not detect) Stool Salmonella PCR (Not detect) Stool Sapovirus (PCR) (Not detect) Stl P. shigelloides PCR (Not detect) Stl Shigella/EIEC PCR (Not detect) St Y.enterocolitica PCR (Not detect) Stool Vibrio (PCR) (Not detect) Stl Vibrio cholerae PCR (Not detect) Stl Norovirus GI/GII PCR (Not detect) Stl GI Panel (PCR) Com Chlamy pneumoniae PCR (Not Detect) Adenovirus (PCR) (Not Detect) B. pertussis DNA (PCR) (Not Detect) B.parapertussis DNA PCR (Not Detect) Coronavirus OC43 (PCR) (Not Detect) Coronavirus HKU1 (PCR) (Not Detect) Coronavirus 229E (PCR) (Not Detect) Coronavirus NL63 (PCR) (Not Detect) Hep Bs Antigen Nonreactive (Nonreactive) Hep Bs Antibody 7.75 mIU/mL Human Metapneumovir PCR (Not Detect) Influenza A (H1) PCR (Not Detect) Influ A (H1N1/09) PCR (Not Detect) Influenza A (H3) PCR (Not Detect) Influenza A Untype (PCR) (Not Detect) Influenza Type B (PCR) (Not Detect) M.pneumoniae DNA (PCR) (Not Detect) Parainfluenza 1 (PCR) (Not Detect) Parainfluenza 2 (PCR) (Not Detect) Parainfluenza 3 (PCR) (Not Detect) Parainfluenza 4 (PCR) (Not Detect) RSV (PCR) (Not Detect) Entero/Rhino (PCR) (Not Detect) Exam - Constitutional Vitals: Temp Pulse Resp BP Pulse Ox 98.8 F 84 20 132/56 93 04/02/17 07:35 04/02/17 07:35 04/02/17 07:35 04/02/17 07:35 04/02/17 07:35 - Additional findings Additional findings: General: Cooperative, pleasant, no acute distress HEENT: Normocephalic, atraumatic, neck supple, trachea midline, Conjunctiva pink , sclera anicteric, oral mucosa moist Respiratory: Slight rhochi on auscultation b/l Cardiovascular: RRR, S1 and S2 present, no murmurs/rubs/gallops/clicks appreciated GI/abdominal: Nondistended, nontender, soft, normal bowel sounds, no peritoneal signs, PEG tube in place without signs of erythema or inflammation, urostomy in place in right anterior abdomen without signs of erythema or inflammation Extremities: No calf tenderness, no pedal edema appreciated, warm, lower extremity pulses palpable and symmetrical Neurological: Alert, no facial droop, no focal deficits Skin: Dry, intact, normal color - VTE Documentation of Mechanical Device: Intermittent pneumatic compression device Consult Discharge Plan - Plan Referrals: Surendra Taveras MD [Partnered Physician] - 04/24/17 2:15 pm Surinder Fung, [Non-Partnered Physician] - (Patient is going to [facility] no PCP appointment is needed) - Attending Attestation I examined this patient and my medical decision-making was reviewed with the Resident Physician. I agree with the documented findings, disposition and treatment plan as described except to the extent set forth below.
--- NOTE | 2017-04-02 10:23 | Internal Med Progress Note ---
<Marcy Machado - Last Filed: 04/02/17 10:19> Date of Encounter: 04/02/17 - Assessment and plan (1) Acute and chronic respiratory failure Current Visit: Yes Status: Chronic Assessment and plan: Patient currently back to baseline mechanical ventilation. Vitals stable. 03/27 BC final no growth. 03/21 sputum culture P. aeruginosa MDRO sensitive to cefepime. Plan: -Continue Linezolid (03/29), Zosyn stopped yesterday - Duonebs Q4hr prn Q6hrs helene Qualifiers: Respiratory failure complication: hypoxia Qualified Code(s): J96.21 - Acute and chronic respiratory failure with hypoxia (2) Atrial fibrillation with RVR Current Visit: Yes Status: Acute Assessment and plan: Currently rate controlled. continue Amiodarone and Coreg (3) VRE (vancomycin resistant enterococcus) culture positive Current Visit: Yes Status: Acute Assessment and plan: Afebrile. WBC 16.5, Continue Linazolid ( 03/29) (4) Pneumonia Current Visit: Yes Status: Acute Assessment and plan: Strep pneumonia antigen positive, imaging consistent with pneumonia. Sputum culture p. aerugionosa Qualifiers: Pneumonia type: due to Pseudomonas Laterality: bilateral Lung location: unspecified part of lung Qualified Code(s): J15.1 - Pneumonia due to Pseudomonas (5) Insulin dependent diabetes mellitus Current Visit: No Status: Chronic Assessment and plan: Corrective high SSI, Levemir 28 unites daily (6) Anemia Current Visit: Yes Status: Acute Assessment and plan: anemia 2/2 to ESRD on HD. hgb 7.1 today, 1 unit of PRBC transfusing. Vitals stable. Plan: - transfusing 1 unit PRBC - repeat H/H after transfusion Qualifiers: Anemia type: due to chronic kidney disease Chronic kidney disease stage: on chronic dialysis Qualified Code(s): N18.6 - End stage renal disease; D63.1 - Anemia in chronic kidney disease; D63.1 - Anemia in chronic kidney disease; Z99.2 - Dependence on renal dialysis; Z99.2 - Dependence on renal dialysis; Z99.2 - Dependence on renal dialysis; Z99.2 - Dependence on renal dialysis (7) Leukocytosis Current Visit: No Status: Acute Assessment and plan: Unsure if infectious related but perisists today. Loose stool yesterday but most likely related to PEG feeds. Will continue to monitor for signs of infection. Continue antibiotics and antifungals. Qualifiers: Leukocytosis type: other Qualified Code(s): D72.828 - Other elevated white blood cell count (8) History of seizure disorder Current Visit: Yes Status: Acute Assessment and plan: continue home meds (9) Hypertension Current Visit: Yes Status: Acute Assessment and plan: controlled on home meds. Qualifiers: Hypertension type: unspecified Qualified Code(s): I10 - Essential (primary ) hypertension (10) ESRD (end stage renal disease) Current Visit: Yes Status: Acute Assessment and plan: Patient on HD. Plan for HD today. Nephrology following. (11) DVT prophylaxis Current Visit: Yes Status: Acute Assessment and plan: heparin - Constitutional Vitals: Temp Pulse Resp BP Pulse Ox 98.8 F 84 20 132/56 93 04/02/17 07:35 04/02/17 07:35 04/02/17 09:53 04/02/17 07:35 04/02/17 09:53 Internal Medicine: Result - Labs CBC & Chem 7: 04/02/17 03:33 04/02/17 03:33 Labs: Short CBC 04/02/17 Range/Units 03:33 WBC 16.5 H (4.3-11.1) K/mcL Hgb 7.1 L (12.9-16.9) g/dL Hct 21.4 L (37.5-50.1) % Plt Count 422 H (140-400) K/mcL Neutrophils # 12.7 H (1.6-8.9) K/mcL BMP 04/02/17 03:33 Sodium 131 L Potassium 4.1 Chloride 90 L Carbon Dioxide 22 L BUN 109 H Creatinine 6.91 H Glucose 118 H Calcium 8.8 - ABG Interpretation ABG results: ABG ABG pH 7.47 pH Units (7.32-7.45) H 03/25/17 09:01 ABG pCO2 30 mmHg (35-45) L 03/25/17 09:01 ABG pO2 71 mmHg (85-104) L 03/25/17 09:01 ABG O2 Saturation 95 % (95-98) 03/25/17 09:01 PT/INR, D-dimer PT 12.5 Seconds (9.4-12.1) H 01/31/18 13:43 - VTE Documentation of Mechanical Device: Intermittent pneumatic compression device Consult Discharge Plan - Plan Referrals: Surendra Taveras MD [Partnered Physician] - 04/24/17 2:15 pm Surinder Fung DO [Non-Partnered Physician] - (Patient is going to [facility] no PCP appointment is needed) Prescriptions: Fluconazole [Diflucan] 200 mg PO DAILY #9 tab Leptospermum Honey [Medihoney] 1 appl TP BID #1 tube Linezolid [Zyvox] 600 mg PO BID #18 tablet Miconazole w/zinc oxide&karaya [Antifungal Extra Thick] 1 appl TP BID #1 tube <Donovan Dooley R - Last Filed: 04/02/17 17:10> Date of Encounter: 04/02/17 - Constitutional Vitals: Temp Pulse Resp BP Pulse Ox 97.8 F 82 18 126/68 99 04/02/17 13:50 04/02/17 16:54 04/02/17 14:44 04/02/17 16:54 04/02/17 16:54 Internal Medicine: Result - Labs CBC & Chem 7: 04/02/17 03:33 04/02/17 03:33 Labs: Short CBC 04/02/17 Range/Units 03:33 WBC 16.5 H (4.3-11.1) K/mcL Hgb 7.1 L (12.9-16.9) g/dL Hct 21.4 L (37.5-50.1) % Plt Count 422 H (140-400) K/mcL Neutrophils # 12.7 H (1.6-8.9) K/mcL BMP 04/02/17 03:33 Sodium 131 L Potassium 4.1 Chloride 90 L Carbon Dioxide 22 L BUN 109 H Creatinine 6.91 H Glucose 118 H Calcium 8.8 - ABG Interpretation ABG results: ABG ABG pH 7.47 pH Units (7.32-7.45) H 03/25/17 09:01 ABG pCO2 30 mmHg (35-45) L 03/25/17 09:01 ABG pO2 71 mmHg (85-104) L 03/25/17 09:01 ABG O2 Saturation 95 % (95-98) 03/25/17 09:01 PT/INR, D-dimer PT 12.5 Seconds (9.4-12.1) H 03/13/17 13:43 - Attending Attestation Please see discharge summary for full details. I personally interviewed and examined this patient. I agree with the findings, assessment, and plan of Dr. Hudson, internal medicine customer marketing intern.
[2017-04-02] MEDS: Fluconazole 200 MG/100 ML 200 MG/100 ML BAG IVPB SCH (15:50)
--- NOTE | 2017-04-02 16:45 | Discharge Summary ---
<MachadoMarcy - Last Filed: 04/02/17 17:30> Orders not resulted at time of discharge: Pending orders 04/01/17 14:28 Hepatitis Be Antigen Routine Date of Encounter: 04/02/17 Time of Encounter: 10:50 - Discharge Diagnosis (1) Acute and chronic respiratory failure Priority: Primary Status: Acute Qualifiers: Respiratory failure complication: hypoxia Qualified Code(s): J96.21 - Acute and chronic respiratory failure with hypoxia (2) Atrial fibrillation with RVR Priority: Secondary Status: Acute (3) VRE (vancomycin resistant enterococcus) culture positive Priority: Secondary Status: Acute (4) Pneumonia Priority: Secondary Status: Acute Qualifiers: Pneumonia type: due to Pseudomonas Laterality: bilateral Lung location: unspecified part of lung Qualified Code(s): J15.1 - Pneumonia due to Pseudomonas (5) Insulin dependent diabetes mellitus Priority: Secondary Status: Chronic (6) Anemia Priority: Secondary Status: Acute Qualifiers: Anemia type: due to chronic kidney disease Chronic kidney disease stage: on chronic dialysis Qualified Code(s): N18.6 - End stage renal disease; D63.1 - Anemia in chronic kidney disease; D63.1 - Anemia in chronic kidney disease; Z99.2 - Dependence on renal dialysis; Z99.2 - Dependence on renal dialysis; Z99.2 - Dependence on renal dialysis; Z99.2 - Dependence on renal dialysis (7) Leukocytosis Priority: Secondary Status: Acute Qualifiers: Leukocytosis type: other Qualified Code(s): D72.828 - Other elevated white blood cell count (8) History of seizure disorder Priority: Secondary Status: Acute (9) Hypertension Priority: Secondary Status: Acute Qualifiers: Hypertension type: unspecified Qualified Code(s): I10 - Essential (primary ) hypertension (10) ESRD (end stage renal disease) Priority: Secondary Status: Acute (11) DVT prophylaxis Priority: Secondary Status: Acute Hospital course: Mr. Bourne is a 71 year old male with a past medical history of respiratory failure, ESRD on hemodialysis, A. fib on Cardizem, CAD, CVA, seizures, diabetes , PE, bladder cancer, and chronically ventilator dependent presented to the ED as he was transferring between [facility] to [facility] when he suddenly became unresponsive and found to be in PEA arrest without pulses most likely 2/2 to septic shoke 2/2 to pneumonia. Patient received 2 rounds of CPR with one dose of epinephrine and obtained ROSC then was admitted to the ICU. CT of head showed no acute intracranial abnormalities. EEG showed moderate generalized encephalopathy. Patient slowly progressed back to baseline mentally and was able to follow commands. Sputum culture grew P. aeruginosa sensitive to cefepime and tobramycin and patient was treated for full course. Patient was found to have a UTI elizabeth albicans and VREF sensitive to Linezolid and was placed on Linezolid and Fluconazole and will need to continued for a total of 9 days after discharge. Patient was stable and progressing back to baseline. Discharged back to [facility]. 03/13 - Chest CT showed multifocal pneumonia versus edema, though significant bilateral pleural effusions appear Echocardiogram showed EF 45% (stable) Head CT showed no acute abnormalities Blood cultures 2 showed no growth CXR showed diffuse multifocal airspace and interstitial opacities bilaterally , pulmonary edema or multifocal pneumonia Patient given single dose Zosyn and Levaquin Patient started on vancomycin for 3 day course Patient started on cefepime for 8 day course 03/14 - CXR showed stable exam with likely bilateral layering pleural effusions with superimposed airspace opacities which may relate to atelectasis, infiltrates, and/or pulmonary edema 03/15 - sputum culture shows MDRO P. aeruginosa sensitive to cefepime, Ceftazidime, Zosyn, tobramycin 03/18 - CXR shows improving diffuse pulmonary edema and bilateral pleural effusions Blood cultures 2 show no growth 03/21 - blood cultures 3 negative Sputum culture positive for MDRO P. aeruginosa sensitive to cefepime and tobramycin Patient restarted on vancomycin due to concerns of continued leukocytosis and fever Patient started on tobramycin Patient started on meropenem for 2 day course 03/22 - stool infectious PCR panel negative for any pathogens 03/23 - CXR shows pulmonary vascular congestion with increasing bilateral perihilar airspace opacities 03/25- urine culture elizabeth albicans and VREF sensitive to Linezolid, initated on linezolid and fluconazole 03/27 - BC no growth - Time Spent with Patient Total time spent providing and/or coordinating discharge services: - Discharge Medications Prescriptions: Fluconazole [Diflucan] 200 mg PO DAILY #9 tab Leptospermum Honey [Medihoney] 1 appl TP BID #1 tube Linezolid [Zyvox] 600 mg PO BID #18 tablet Miconazole w/zinc oxide&karaya [Antifungal Extra Thick] 1 appl TP BID #1 tube Home Medications: Ergocalciferol (VITAMIN D2) [Vitamin D2] 50,000 unit GTUBE SA 03/18/16 [History] Insulin ASPART [Novolog Flexpen] 8 unit SQ Q4H 03/18/16 [History] Acetaminophen [Tylenol] 325 mg GTUBE Q6H PRN 03/13/17 [History] Amiodarone [Cordarone] 200 mg GTUBE DAILY 03/13/17 [History] Amlodipine Besylate 10 mg GTUBE DAILY 03/13/17 [History] Buspirone HCl [Buspar] 15 mg GTUBE BID 03/13/17 [History] Calcium Acetate [Phos-LO] 1,334 mg GTUBE TIDWM 03/13/17 [History] Carvedilol 37.5 mg PO BIDWM 03/13/17 [History] CloNIDine Patch [Catapres-Tts] 0.3 mg TD QWEEK 03/13/17 [History] Darbepoetin Barron in Polysorbat [Aranesp] 50 mcg SQ QWEEK 03/13/17 [History] Dextrose [Glucose] 33 gm PO ONCE PRN 03/13/17 [History] Diltiazem HCl [Cardizem] 60 mg GTUBE QID 03/13/17 [History] Epoetin Barron [Procrit] 10,000 unit SQ ONCE PRN 03/13/17 [History] Guaifenesin [Cough Syrup] 300 mg GTUBE BID 03/13/17 [History] Hydralazine HCl 125 mg GTUBE Q8H 03/13/17 [History] Insulin Glargine [Lantus] 25 unit SQ QAM 03/13/17 [History] Insulin Regular Human [Humulin R] 0 - 16 unit SQ Q6H 03/13/17 [History] Ipratropium/Albuterol Neb [Duoneb] 3 ml IH Q4H PRN 03/13/17 [History] Lansoprazole susp *PEDS* [Prevacid susp] 30 mg GTUBE DAILY 03/13/17 [History] Levothyroxine [Synthroid] 75 mcg GTUBE QAM 03/13/17 [History] Lidocaine Patch [Lidoderm 5% patch] 1 each TP DAILY 03/13/17 [History] Nitroglycerin [Nitrostat] 0.4 mg SL Q5M PRN 03/13/17 [History] Ondansetron HCl [Zofran] 4 mg PO Q6H PRN 03/13/17 [History] Phenytoin [Dilantin] 100 mg GTUBE BID 03/13/17 [History] Polyethylene Glycol 3350 [MiraLAX] 17 gm PO DAILY 03/13/17 [History] Quetiapine Fumarate [Seroquel] 12.5 mg GTUBE DAILY 03/13/17 [History] Quetiapine Fumarate [Seroquel] 50 mg GTUBE HS 03/13/17 [History] Renal Vitamin [Renal Caps Softgel] 1 mg GTUBE DAILY 03/13/17 [History] Sacubitril/Valsartan [Entresto 97 mg-103 mg Tablet] 1 each GTUBE BID 03/13/17 [ History] Valproic Acid Oral Soln [Depakene Oral Soln] 250 mg GTUBE BID 03/13/17 [History] clonazePAM [Klonopin] 0.25 mg GTUBE BID PRN 03/13/17 [History] Chlorhexidine Rinse 15 ml MM BID mouthwash 04/02/17 [Rx] Fluconazole [Diflucan] 200 mg PO DAILY #9 tab 04/02/17 [Rx] Leptospermum Honey [Medihoney] 1 appl TP BID #1 tube 04/02/17 [Rx] Lidocaine Patch [Lidoderm 5% patch] 1 each TP DAILY adh..patch 04/02/17 [Rx] Linezolid [Zyvox] 600 mg PO BID #18 tablet 04/02/17 [Rx] Miconazole w/zinc oxide&karaya [Antifungal Extra Thick] 1 appl TP BID #1 tube [Rx] Allergies/Adverse Reactions: 3 Allergy/AdvReac Type Severity Reaction Status Date / Time Sulfa (Sulfonamide Allergy Severe Anaphylaxis Verified 03/21/16 07:20 Antibiotics) codeine Allergy Unknown See Verified 03/19/16 07:08 Comments Date of admission: 03/13/17 16:21 Primary care physician: PCP NONE Consults: 03/13/17 17:00 Consult to Nephrology [CONS] Routine Consulting Provider: [facility]/TANGELA/JULIAN/JUD Reason for Consult: ESRD Call Completed: No Consult to Neurology [CONS] Routine Consulting Provider: [facility] Reason for Consult: EEG, COncen for seizure Call Completed: No 03/14/17 10:00 Consult to Dialysis [CONS] ONCE 03/14/17 11:47 Consult to Interpret Exam [CONS] Routine Consulting Provider: Peter [place]ri[place] Consult to Interpret Exam: Interpret EEG 03/15/17 07:45 Consult to Dialysis [CONS] ONCE 03/16/17 08:15 Consult to Dialysis [CONS] ONCE 03/18/17 07:45 Consult to Dialysis [CONS] ONCE 03/18/17 11:55 Consult to Wound Care [CONS] Routine Reason for Consult: Bilateral LE ulcers. Call Completed: No 03/19/17 10:38 Consult to Patient Access Associate [CONS] Routine Reason for SW Consult: Discharge planning. Prior to arrival the patient was on his way to [facility] when his respiratory status declined. He will likely be stable for discharge in another day or two. 03/19/17 12:15 Consult to Dialysis [CONS] ONCE 03/19/17 14:24 Consult to Invasive Line Access Team [CONS] Routine Reason for Consult: Switch from CVC to power glide for extended antibiotic use Line Type: EPIV 03/20/17 08:30 Consult to Dialysis [CONS] ONCE 03/21/17 09:00 Consult to Dialysis [CONS] ONCE 03/22/17 08:00 Consult to Dialysis [CONS] ONCE 03/25/17 06:45 Consult to Dialysis [CONS] ONCE 03/25/17 08:53 Consult to Infectious Diseases [CONS] Routine Consulting Provider: Infectious Disease [place] Reason for Consult: MDRO pseudomonas; PNA Call Completed: Yes 03/26/17 09:45 Consult to Dialysis [CONS] ONCE 03/28/17 07:30 Consult to Dialysis [CONS] ONCE 03/30/17 09:00 Consult to Dialysis [CONS] ONCE 04/02/17 08:00 Consult to Dialysis [CONS] ONCE 04/02/17 13:26 Consult to Respiratory Therapy [CONS] Routine Reason for Consult: Pulmonary tiolet Call Completed: No Discharging clinician: Donovan Dooley Anticipated date of discharge: 04/02/17 - Constitutional Vitals: Temp Pulse Resp BP Pulse Ox 97.8 F 84 18 151/77 99 04/02/17 13:50 04/02/17 12:56 04/02/17 14:44 04/02/17 13:50 04/02/17 14:44 Exam: Constitutional: mechanically ventilated and nods in response to some questions, Alert, in no acute distress, well nourished, Head: Normocephalic, atraumatic, Heart: Normal, regular rate and rhythm, no murmurs Lungs: Clear to auscultation on mechanical ventilator no wheezes, rales, or rhonchi Abdomen: right colostomy bag, Soft, nondistended, nontender, bowel sounds present and normal, no guarding or rigidity. Extremities: pressure pumps on calfs, No clubbing, cyanosis, or edema, Skin: lSkin warm and dry, no jaundice Neurologic: unable to follow commands well, did lift right arm but did not move any other extremities Psych: Cooperative with exam, good eye contact, cognitive function intact, judgment good insight good, speech clear, thought process logical, and goal directed - Patient Status Disposition: Transfer SNF Condition: Fair Functional capacity at discharge: bed bound Overall status at discharge: patient is progressing back to baseline - Discharge Instructions Follow Up With: Surendra Taveras MD [Partnered Physician] - 04/24/17 2:15 pm Surinder Fung, [Non-Partnered Physician] - (Patient is going to [facility] no PCP appointment is needed) Additional Instructions: Please complete course of Linezolid and Fluconzaole for a total of 9 more days. Please follow-up with a primary care physician in 2-3 days. - Diet and Activity Activity: as per physical therapy Diet: other (Gtube) - VTE Documentation of Mechanical Device: Intermittent pneumatic compression device <Donovan Dooley - Last Filed: 04/02/17 17:57> Orders not resulted at time of discharge: Pending orders 04/01/17 14:28 Hepatitis Be Antigen Routine Date of Encounter: 04/02/17 Hospital course: Mr. Bourne is a 71 year old male - Time Spent with Patient Total time spent providing and/or coordinating discharge services: Date of admission: 03/13/17 16:21 Primary care physician: PCP NONE Consults: 03/13/17 17:00 Consult to Nephrology [CONS] Routine Consulting Provider: [facility]/TANGELA/JULIAN/JUD Reason for Consult: ESRD Call Completed: No Consult to Neurology [CONS] Routine Consulting Provider: [facility] Reason for Consult: EEG, COncen for seizure Call Completed: No 03/14/17 10:00 Consult to Dialysis [CONS] ONCE 03/14/17 11:47 Consult to Interpret Exam [CONS] Routine Consulting Provider: Peter [place]ri[place] Consult to Interpret Exam: Interpret EEG 03/15/17 07:45 Consult to Dialysis [CONS] ONCE 03/16/17 08:15 Consult to Dialysis [CONS] ONCE 03/18/17 07:45 Consult to Dialysis [CONS] ONCE 03/18/17 11:55 Consult to Wound Care [CONS] Routine Reason for Consult: Bilateral LE ulcers. Call Completed: No 03/19/17 10:38 Consult to Patient Access Associate [CONS] Routine Reason for SW Consult: Discharge planning. Prior to arrival the patient was on his way to [facility] when his respiratory status declined. He will likely be stable for discharge in another day or two. 03/19/17 12:15 Consult to Dialysis [CONS] ONCE 03/19/17 14:24 Consult to Invasive Line Access Team [CONS] Routine Reason for Consult: Switch from CVC to power glide for extended antibiotic use Line Type: EPIV 03/20/17 08:30 Consult to Dialysis [CONS] ONCE 03/21/17 09:00 Consult to Dialysis [CONS] ONCE 03/22/17 08:00 Consult to Dialysis [CONS] ONCE 03/25/17 06:45 Consult to Dialysis [CONS] ONCE 03/25/17 08:53 Consult to Infectious Diseases [CONS] Routine Consulting Provider: [facility] Reason for Consult: MDRO pseudomonas; PNA Call Completed: Yes 03/26/17 09:45 Consult to Dialysis [CONS] ONCE 03/28/17 07:30 Consult to Dialysis [CONS] ONCE 03/30/17 09:00 Consult to Dialysis [CONS] ONCE 04/02/17 08:00 Consult to Dialysis [CONS] ONCE 04/02/17 13:26 Consult to Respiratory Therapy [CONS] Routine Reason for Consult: Pulmonary tiolet Call Completed: No - Constitutional Vitals: Temp Pulse Resp BP Pulse Ox 97.8 F 82 18 126/68 99 04/02/17 13:50 04/02/17 16:54 04/02/17 14:44 04/02/17 16:54 04/02/17 16:54 - Attending Attestation a2
[2017-04-02 16:57] VITALS: BP 126/68
--- NOTE | 2017-04-02 17:17 | Physician Discharge Referral ---
ExtendedCare Referral Info Transfer To: [place] Provider in Charge: Donovan Dooley Provider in Charge after Transfer: PCP Institutional Level of Care: Skilled - Diagnosis (1) Acute and chronic respiratory failure Priority: Primary Status: Acute (2) Atrial fibrillation with RVR Priority: Secondary Status: Acute (3) VRE (vancomycin resistant enterococcus) culture positive Priority: Secondary Status: Acute (4) Pneumonia Priority: Secondary Status: Acute (5) Insulin dependent diabetes mellitus Priority: Secondary Status: Chronic (6) Anemia Priority: Secondary Status: Acute (7) Leukocytosis Priority: Secondary Status: Acute (8) History of seizure disorder Priority: Secondary Status: Acute (9) Hypertension Priority: Secondary Status: Acute (10) ESRD (end stage renal disease) Priority: Secondary Status: Acute (11) DVT prophylaxis Priority: Secondary Status: Acute - Transfer Medications Prescriptions: Fluconazole [Diflucan] 200 mg PO DAILY #9 tab Leptospermum Honey [Medihoney] 1 appl TP BID #1 tube Linezolid [Zyvox] 600 mg PO BID #18 tablet Miconazole w/zinc oxide&karaya [Antifungal Extra Thick] 1 appl TP BID #1 tube Home Medications: Ergocalciferol (VITAMIN D2) [Vitamin D2] 50,000 unit GTUBE SA 03/18/16 [History] Insulin ASPART [Novolog Flexpen] 8 unit SQ Q4H 03/18/16 [History] Acetaminophen [Tylenol] 325 mg GTUBE Q6H PRN 03/13/17 [History] Amiodarone [Cordarone] 200 mg GTUBE DAILY 03/13/17 [History] Amlodipine Besylate 10 mg GTUBE DAILY 03/13/17 [History] Buspirone HCl [Buspar] 15 mg GTUBE BID 03/13/17 [History] Calcium Acetate [Phos-LO] 1,334 mg GTUBE TIDWM 03/13/17 [History] Carvedilol 37.5 mg PO BIDWM 03/13/17 [History] CloNIDine Patch [Catapres-Tts] 0.3 mg TD QWEEK 03/13/17 [History] Darbepoetin Barron in Polysorbat [Aranesp] 50 mcg SQ QWEEK 03/13/17 [History] Dextrose [Glucose] 33 gm PO ONCE PRN 03/13/17 [History] Diltiazem HCl [Cardizem] 60 mg GTUBE QID 03/13/17 [History] Epoetin Barron [Procrit] 10,000 unit SQ ONCE PRN 03/13/17 [History] Guaifenesin [Cough Syrup] 300 mg GTUBE BID 03/13/17 [History] Hydralazine HCl 125 mg GTUBE Q8H 03/13/17 [History] Insulin Glargine [Lantus] 25 unit SQ QAM 03/13/17 [History] Insulin Regular Human [Humulin R] 0 - 16 unit SQ Q6H 03/13/17 [History] Ipratropium/Albuterol Neb [Duoneb] 3 ml IH Q4H PRN 03/13/17 [History] Lansoprazole susp *PEDS* [Prevacid susp] 30 mg GTUBE DAILY 03/13/17 [History] Levothyroxine [Synthroid] 75 mcg GTUBE QAM 03/13/17 [History] Lidocaine Patch [Lidoderm 5% patch] 1 each TP DAILY 03/13/17 [History] Nitroglycerin [Nitrostat] 0.4 mg SL Q5M PRN 03/13/17 [History] Ondansetron HCl [Zofran] 4 mg PO Q6H PRN 03/13/17 [History] Phenytoin [Dilantin] 100 mg GTUBE BID 03/13/17 [History] Polyethylene Glycol 3350 [MiraLAX] 17 gm PO DAILY 03/13/17 [History] Quetiapine Fumarate [Seroquel] 12.5 mg GTUBE DAILY 03/13/17 [History] Quetiapine Fumarate [Seroquel] 50 mg GTUBE HS 03/13/17 [History] Renal Vitamin [Renal Caps Softgel] 1 mg GTUBE DAILY 03/13/17 [History] Sacubitril/Valsartan [Entresto 97 mg-103 mg Tablet] 1 each GTUBE BID 03/13/17 [ History] Valproic Acid Oral Soln [Depakene Oral Soln] 250 mg GTUBE BID 03/13/17 [History] clonazePAM [Klonopin] 0.25 mg GTUBE BID PRN 03/13/17 [History] Chlorhexidine Rinse 15 ml MM BID mouthwash 04/02/17 [Rx] Fluconazole [Diflucan] 200 mg PO DAILY #9 tab 04/02/17 [Rx] Leptospermum Honey [Medihoney] 1 appl TP BID #1 tube 04/02/17 [Rx] Lidocaine Patch [Lidoderm 5% patch] 1 each TP DAILY adh..patch 04/02/17 [Rx] Linezolid [Zyvox] 600 mg PO BID #18 tablet 04/02/17 [Rx] Miconazole w/zinc oxide&karaya [Antifungal Extra Thick] 1 appl TP BID #1 tube [Rx] Allergies/Adverse Reactions: 3 Allergy/AdvReac Type Severity Reaction Status Date / Time Sulfa (Sulfonamide Allergy Severe Anaphylaxis Verified 03/21/16 07:20 Antibiotics) codeine Allergy Unknown See Verified 03/19/16 07:08 Comments - Respiratory Orders Other (mechanical ventilation) Smoking Cessation: Smoking cessation has been advised. For more information, call the [place] Tobacco Quit Line at 6-159-UPLJ-NOW. - Ancillary Orders May use pressure relief devices daily prn, May go on DARWIN w/family/respon libertarian w /meds at nurse discretion PRN, May consult with Dentist, Switch Foreman, Recreational Leader PRN - Mobility Orders Chair, Bedrest - Rehabiliation Orders Rehab Potential: Fair Rehab Orders: Evaluation for Physical Therapy, Evaluation for Occupational Therapy - Treatments Skin tear care topically daily PRN per policy, May check for fecal impaction rectally daily PRN, Fleet enema rectally every other day PRN cleansing purposes List/Other: wound care - Diet Orders Tube Feedings (type/amount/rate): bolus 1 can Latisharo 6x pio @ @ 0600, 0900, 1200, 1500, 1800 CERTIFICATION: I certify that the transfer of the above named patient to an Extended Care Facility is necessary for the continuing treatment of the diagnosis listed. The above information is true and accurate reflection of patient's current condition. Confidential - Redisclosure prohibited without a patient's written consent.
--- NOTE | 2017-04-02 18:05 | Event Note ---
Date of Encounter: 04/02/17 Time of Encounter: 15:00 41 minutes spent on discharge and coordination of care Pt much improved. Stable for discharge. Undergoing hemodialysis and antibiotics as directed by infectious disease. He appears to be back to his reported baseline. He will need close follow-up. I input is reflected in the discharge summary. Pt goes back to SNF today.
== END 2017-04-02 19:10 | DRG 870 ==
LOC: EMEROO 13:16 → SUATTDRO 16:21 → ICNU 16:21 → 2NNU 03-29 14:45
PROVIDERS: ADMIT Internal Medicine Pulmonary Disease; ATTEND Internal Medicine